=== PATIENT | female | born 1955 | race Caucasian/White ===

== ENCOUNTER 2018-01-21 16:55 | Observation (INO) | payer OTHER ==
[2018-01-21] MEDS ORDERED: Acetaminophen 500 MG TAB ONE (20:33)
[2018-01-21 21:14] VITALS: BMI 33.9
[2018-01-21] MEDS ORDERED: ALPRAZolam 1 MG TAB PO SCH (22:45)
[2018-01-22] MEDS ORDERED: Acetaminophen 325 MG TAB PO PRN (00:23)
[2018-01-22] MEDS ORDERED: Senokot 8.6 MG TAB PO PRN (00:23)
[2018-01-22] MEDS ORDERED: Fluticasone Propionate Nasal Spray 16 gm Bottle NASAL PRN (00:27)
[2018-01-22] MEDS ORDERED: ALPRAZolam 0.5 MG TAB PO PRN (00:27)
[2018-01-22] MEDS ORDERED: tiZANidine HCl 4 MG TAB PO PRN (00:27)
[2018-01-22] MEDS ORDERED: Dextrose 5% in Water 1,000 ML IV PRN (00:28)
[2018-01-22] MEDS ORDERED: Dextrose 50% Abboject 50 ML SYRINGE SLOW IVP PRN (00:28)
[2018-01-22] MEDS: Sodium Chloride 0.45% 1,000 ML IV SCH ×2 (01:38→13:26)
[2018-01-22] MEDS: Piperacillin/Tazobactam 3.375 GM in Sodium Chloride 0.9% 100 ML IVPB SCH ×4 (01:43→20:55)
[2018-01-22] MEDS: HumaLOG 300 UNITS/3 ML VIAL SC PRN (04:50)
[2018-01-22] MEDS: Levothyroxine Sodium 50 MCG TAB PO SCH (04:52)
[2018-01-22 05:57] LABS: #Eosinphils 0.2 thou/uL (0.0-0.7); #Lymphocytes 1.7 thou/uL (1.20-3.40); #Monocytes 0.3 thou/uL (0.11-0.59); #Neutrophils 2.5 thou/uL (1.40-6.50); %Basophils 0.6 % (0.0-1.0); %Lymphocytes 36.6 % (21.0-51.0); %Monocytes 5.5 % (0.0-10.0); %Neutrophils 52.4 % (42.0-75.0); Hemoglobin 10.3 g/dL (12.0-16.0); Mean Corpuscular HGB CONC 34.9 g/dL (32.0-36.0); Mean Corpuscular Hemoglobin 29.3 pg (27.0-31.0); Mean Corpuscular Volume 83.9 fL (78.0-98.0); Mean Platelet Volume 8.3 fL (7.4-10.4); Platelet Count 191 thou/uL (130-400); RBC Distribution Width 12.6 % (11.5-14.5); Red Blood Cell (RBC) Count 3.52 mill/uL (4.20-5.40); White Blood Cell (WBC) Count 4.7 thou/uL (4.8-10.8)
[2018-01-22 06:05] LABS: Anion Gap 11 mmol/L (10-20); BUN (Urea Nitrogen) 26 mg/dL (9.8-20.1); Calc. Creatinine Clearance 62 mL/min (70-130); Calcium 8.6 mg/dL (7.8-10.44); Carbon Dioxide 25 mmol/L (22-29); Chloride 102 mmol/L (98-107); Estimated GFR-MDRD 37; Glucose 198 mg/dL (70-105); Potassium 3.8 mmol/L (3.5-5.1); Sodium 134 mmol/L (136-145)
--- NOTE | 2018-01-22 06:47 | HP ---
CHIEF COMPLAINT: Urosepsis. HISTORY OF PRESENT ILLNESS: This patient is a 62-year-old female who reports that she has actually b een having syncopal episodes for weeks now. She states she simply awakens from them and goes on abou t life. Today, the patient was dropped off at a clinic in [place] for an appointment. While th ere, the patient had a syncopal episode, apparently hit her head and complained of some neck and low back pain. EMS was called and they evaluated the patient, took her to the Emergency Department in [facility] where she had a negative CT C-spine, abdomen, pelvis and brain. However, at that time, th e patient was noted to have a creatinine of 2.05 with evidence of pyuria. She was felt to have sympt omatic urinary tract infection with urosepsis. She was given Zosyn at that time and subsequently tra nsferred to this facility. The patient has recently been on Cipro and Keflex for urinary tract infec tions. The patient does monitor her blood sugars. She says they do drop at times down into the 40s. She has no idea if these may be related to her syncopal episodes. PAST MEDICAL HISTORY: Notable for diabetes mellitus type 2, hyperlipidemia, COPD, although the patie nt states she has never smoked, hypertension, hypothyroidism, history of myocardial infarction. The patient reports she has a history of broken bones in her right foot and history of anxiety and depres paulina. PAST SURGICAL HISTORY: Hysterectomy, right leg surgery, cardiac stents. FAMILY HISTORY: Patient reports her mother had Pick's disease and dementia. SOCIAL HISTORY: No alcohol, drugs or smoking history. ALLERGIES: DEMEROL, LATEX and MORPHINE. MEDICATIONS: Atorvastatin 40 mg p.o. daily, tizanidine 4 mg every day p.r.n., Meloxicam 7.5 mg ever y day, Cipro 250 q.12h, Tylenol #3 q.8 hours, metformin 1000 mg b.i.d., escitalopram 20 mg every day, Lyrica 100 mg b.i.d., levothyroxine 50 mcg every day, lisinopril/HCTZ 20/25 one p.o. daily, fluticas one nasal spray. REVIEW OF SYSTEMS: A 10 system review was negative except for those things mentioned in the history of present illness. The patient currently reporting that she is not having significant back pain, al though it was reported earlier. PHYSICAL EXAMINATION: VITAL SIGNS: Temperature 97.7, pulse 58, respirations 16, blood pressure is 139/62 up to 160/60. GENERAL APPEARANCE: Age appropriate female. She is in no distress. She is awake, alert, oriented, pleasant, cooperative. HEENT: PERRL. No OP lesions. NECK: Supple and symmetric without lymphadenopathy, JVD or bruits. CARDIOVASCULAR: Regular rate and rhythm without murmurs. LUNGS: Clear bilaterally. ABDOMEN: Soft, nontender, nondistended, positive bowel sounds. EXTREMITIES: Warm and dry without edema. NEUROLOGIC: The patient appears intact with no focal deficits. LABORATORY DATA: White blood cell count 6.7, hemoglobin 10.5, platelets 204. Sodium 133, potassium 4.8, chloride 96, CO2 of 20, BUN 32, creatinine is 2.05, glucose 329. Lactic acid initially is 2.4, repeat 1.6, albumin 3.6. Urinalysis shows greater than 50 white blood cells, negative nitrites, smal l leukocyte esterase, 3+ bacteria. A urine drug screen positive for benzodiazepines. Brain CT negative. C-spine CT shows mild degenerative changes of the cervical spine without acute os seous abnormalities. CT scan of the chest, abdomen and pelvis negative. ASSESSMENT AND PLAN: 1. Urosepsis in a patient with elevated lactic acid level, syncopal episodes and evidence of ongoing urinary tract infection. The patient did receive a dose of Zosyn at the [facility] and we will continue that for now. Will follow up on cultures from there. 2. Syncopal episode, presumably secondary to ongoing infection; however, it has been happening for a good while. We will check echocardiogram, carotid Dopplers, and maintain telemetry monitoring. 3. Fall injury related to the syncope. We will ask physical therapy to evaluate the patient further . 4. History of hypertension. We will continue with the patient's usual home medical regimen. 5. Hyperlipidemia. Continue with her usual home regimen. 6. Diabetes mellitus. We will continue with her usual medications and assuming that her creatinine will be stable and hopefully slightly improve with the hydration and the metformin will continue to b e safe. We will keep her on a diabetic diet and check glucoses and give sliding scale insulin. 7. Renal: The patient has apparent acute renal injury. Her creatinine is typically averaging aroun d 1.4, she is at 2.05 today. We will continue with IV fluids.
[2018-01-22] MEDS: Lisinopril/Hydrochlorothiazide 20/25 mg Tablet PO SCH (08:20)
[2018-01-22] MEDS: Pregabalin 50 MG CAP PO SCH ×2 (08:20→20:56)
[2018-01-22] MEDS: metFORMIN 500 MG TAB PO SCH ×2 (08:21→17:02)
[2018-01-22] MEDS: Meloxicam 7.5 MG TAB PO SCH (08:21)
[2018-01-22] MEDS: Escitalopram Oxalate 20 mg Tablet PO SCH (08:21)
--- NOTE | 2018-01-22 09:32 | ULT ---
CAROTID ULTRASOUND WITH STERLING SCALE AND DOPPLER DUPLEX COLOR FLOW IMAGING SPECTRAL ANALYSIS PERFORMED: CLINICAL INDICATION: Syncope. FINDINGS: There is mild atherosclerotic calcification of the carotid arteries. PEAK SYSTOLIC VELOCITY (CM/S): Right CCA 91 Left CCA 79 Right ICA 102 Left ICA 240 There is antegrade flow within the visualized bilateral vertebral arteries. IMPRESSION: 1. No hemodynamically significant stenosis of the right internal carotid artery. 2. Moderate, 50-69% stenosis of the left internal carotid artery. POS: MIHAELA
[2018-01-22] MEDS: Acetaminophen/Codeine 30-300mg Tablet PO PRN (09:56)
[2018-01-22] MEDS ORDERED: Ketorolac Tromethamine 30 MG/ML VIAL IVP SCH (13:15)
[2018-01-22] MEDS ORDERED: Ketorolac Tromethamine 30 MG/ML VIAL IVP PRN (13:16)
--- NOTE | 2018-01-22 18:58 | PDOC.PN ---
- Subjective Encounter Start Date: 01/22/18 Encounter Start Time: 18:30 Subjective: f/u for syncope, falls and UTI. Currently receiving IVF's and Zosyn. Feels -: better overall. No fever or chills. - Objective Resuscitation Status: Resuscitation Status FULL:Full Resuscitation MAR Reviewed: Yes Vital Signs & Weight: Vital Signs (12 hours) Temp Pulse Resp BP Pulse Ox 01/22/18 15:19 98.3 F 85 18 177/79 H 96 01/22/18 12:05 97.8 F 91 18 172/89 H 97 01/22/18 08:15 98.3 F 71 20 01/22/18 07:45 98.3 F 71 20 158/82 H 98 Weight Weight 210 lb 1.6 oz I&O: 01/21/18 01/22/18 01/23/18 06:59 06:59 06:59 Intake Total 1197 1849 Output Total 1850 1600 Balance -653 249 Result Diagrams: 01/22/18 04:50 01/22/18 04:49 Additional Labs: Accuchecks 01/22/18 01/22/18 01/22/18 16:16 12:05 08:02 POC Glucose 194 H 196 H 159 H 01/22/18 01/21/18 04:40 21:02 POC Glucose 234 H 200 H Laboratory Tests 01/21/18 01/21/18 01/21/18 13:00 13:00 18:37 WBC 6.7 Creatinine 2.05 H Lactic Acid 1.6 Radiology Reviewed by me: Yes (Carotid sono - L carotid mod stenosis) EKG Reviewed by me: Yes (Tele - SR) Phys Exam - Physical Examination Constitutional: NAD HEENT: PERRLA, sclera anicteric, oral pharynx no lesions Neck: no nodes, no JVD, supple, full ROM Respiratory: no wheezing, no rales, no rhonchi, clear to auscultation bilateral Cardiovascular: RRR, no significant murmur, no rub, gallop Gastrointestinal: soft, non-tender, no distention, positive bowel sounds Musculoskeletal: no edema, pulses present Neurological: non-focal, normal sensation, moves all 4 limbs Psychiatric: normal affect, A&O x 3 Skin: no rash, normal turgor, cap refill <2 seconds Dx/Plan (1) PATRICA (acute kidney injury) Code(s): N17.9 - ACUTE KIDNEY FAILURE, UNSPECIFIED Status: Acute Comment: Improved, continue IVF's, avoid nephrotoxic meds and limit contrast exposure (2) Syncope Code(s): R55 - SYNCOPE AND COLLAPSE Status: Acute Comment: Likely multifactorial and mediated with hypovolemia, continue IVF's, await Echo results (3) UTI (urinary tract infection) Status: Acute Comment: Suspected, await Ucx, continue Zosyn another 24h then convert to po option (4) Diabetes mellitus, type II, insulin dependent Code(s): E11.9 - TYPE 2 DIABETES MELLITUS WITHOUT COMPLICATIONS; Z79.4 - INTERMEDIATE (CURRENT) USE OF INSULIN Status: Chronic Comment: ISS, Glucophage, ADA - Plan continue antibiotics, 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
[2018-01-22] MEDS ORDERED: Atorvastatin Calcium 40 MG TAB PO SCH (21:00)
[2018-01-23] MEDS: Sodium Chloride 0.45% 1,000 ML IV SCH ×2 (00:54→14:16)
[2018-01-23] MEDS: Piperacillin/Tazobactam 3.375 GM in Sodium Chloride 0.9% 100 ML IVPB SCH ×3 (01:37→14:16)
[2018-01-23] MEDS: HumaLOG 300 UNITS/3 ML VIAL SC PRN ×2 (04:15→08:30)
[2018-01-23] MEDS: Levothyroxine Sodium 50 MCG TAB PO SCH (04:15)
[2018-01-23 04:54] LABS: Anion Gap 11 mmol/L (10-20); BUN (Urea Nitrogen) 18 mg/dL (9.8-20.1); Calc. Creatinine Clearance 69 mL/min (70-130); Calcium 8.8 mg/dL (7.8-10.44); Carbon Dioxide 28 mmol/L (22-29); Chloride 102 mmol/L (98-107); Estimated GFR-MDRD 42; Glucose 295 mg/dL (70-105); Potassium 3.8 mmol/L (3.5-5.1); Sodium 137 mmol/L (136-145)
[2018-01-23] MEDS: Meloxicam 7.5 MG TAB PO SCH (07:43)
[2018-01-23] MEDS: Escitalopram Oxalate 20 mg Tablet PO SCH (07:44)
[2018-01-23] MEDS: Lisinopril/Hydrochlorothiazide 20/25 mg Tablet PO SCH (07:44)
[2018-01-23] MEDS: metFORMIN 500 MG TAB PO SCH (07:44)
[2018-01-23] MEDS: Pregabalin 50 MG CAP PO SCH (07:52)
[2018-01-23 08:02] VITALS: TEMP 97
[2018-01-23] MEDS: Acetaminophen/Codeine 30-300mg Tablet PO PRN (08:35)
[2018-01-23 11:51] VITALS: BP 180/134
--- NOTE | 2018-01-23 16:30 | DIS ---
DATE OF ADMISSION: 01/21/2018 DATE OF DISCHARGE: 01/23/2018 DISCHARGE DIAGNOSES: 1. Acute kidney injury, multifactorial, improved. 2. Urinary tract infection with Escherichia coli. 3. Syncope secondary to volume depletion. 4. Diabetes mellitus type 2, insulin requiring. CONSULTATIONS: None. PERTINENT LAB AND X-RAY FINDINGS: Creatinine ranged between 1.29-2.05. Estimated GFR ranging betwee n 25-42. Urine culture dated 01/21/2018 showed greater than 100,000 colonies of E. coli. Blood cult ures x2 from 01/21/2018 showed no growth to date. Carotid Doppler study dated 01/22/2018 showed mode rate stenosis of the left internal carotid artery. CT of the brain without contrast dated 01/21/2018 showed no acute intracranial process. CT of the cervical spine dated 01/21/2018 showed mild degener ative changes without acute process. CT of the chest, abdomen, and pelvis dated 01/21/2018 showed no acute process. HOSPITAL COURSE: The patient was observed on the telemetry unit after initially presenting status po st syncopal episode and fall. The patient underwent extensive evaluation with multiple imaging studi es all negative. The patient was noted with dehydration and associated acute kidney injury, placed o n IV fluids throughout the hospital course. The patient was also noted with a urinary tract infectio n with E. coli species, treated with Zosyn after sensitivities showed appropriate coverage with Zosyn . The patient transitioned to Macrobid and will complete this therapy on an outpatient basis. Overa ll, the patient did remain clinically stable during the hospital course. Telemetry monitoring showed sinus bradycardia with heart rates in the 50s to low 60s. I have examined the patient at the time o f discharge and discussed followup instructions, at which point the patient verbalizes understanding and agreement. The patient overall clinically stable and ready for discharge on 01/23/2018. DISCHARGE MEDICATIONS: 1. Macrobid 100 mg 1 tab p.o. b.i.d. x5 days. 2. Tylenol #3 300 mg/30 mg 1 tab p.o. q.8 hours p.r.n. 3. Xanax 1 mg p.o. b.i.d. p.r.n. 4. Lipitor 40 mg p.o. daily. 5. Lexapro 20 mg p.o. daily. 6. Flonase 2 sprays in each naris daily. 7. Glargine insulin 60 units subcutaneously at bedtime. 8. Synthroid 50 mcg p.o. daily. 9. Lisinopril/hydrochlorothiazide 20/25 mg 1 tab p.o. daily. 10. Mobic 7.5 mg p.o. daily. 11. Metformin 1000 mg p.o. b.i.d. 12. Lyrica 100 mg p.o. b.i.d. 13. Tizanidine 4 mg p.o. daily. FOLLOWUP: The patient will follow up with [facility]. CONDITION ON DISCHARGE: Stable. ACTIVITY: ad mounika. DIET: ADA and heart healthy. CODE STATUS: FULL. DISPOSITION: Home on 01/23/2018.
== END 2018-01-23 15:06 | disposition home or self-care (01) ==
LOC: ERS 16:55 → 2SW 20:30 → UNDODISOB 01-23 12:05
PROVIDERS: ADMIT Internal Medicine; ATTEND Internal Medicine
DX: N17.9 Acute kidney failure, unspecified (principal); N39.0 Urinary tract infection, site not specified; B96.20 Unspecified Escherichia coli [E. coli] as the cause of diseases classified elsewhere; R55 Syncope and collapse; E11.9 Type 2 diabetes mellitus without complications; E78.5 Hyperlipidemia, unspecified; I25.2 Old myocardial infarction; I10 Essential (primary) hypertension; E03.9 Hypothyroidism, unspecified; Z79.4 Long term (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 of insulin; Z79.899 Other long term (current) drug therapy; Z88.5 Allergy status to narcotic agent; Z91.040 Latex allergy status
CPT/HCPCS: 36415; 36416; 80048; 83605; 85025; 93306; 93880; 96360; 96361; 96365; 96366; 96375; A4216; G0378; G8978-GP-CJ; G8979-GP-CJ; G8980-GP-CJ; J1885; J2543; J7050

== ENCOUNTER 2019-01-19 17:09 | Inpatient (IN) | payer OTHER ==
[~2019-01-19 17:09] MED LIST: ISOVUE-370 76%-LOCM 1 ML ONE
--- NOTE | 2019-01-19 18:25 | CT ---
CTA THORAX UTILIZING IV CONTRAST AND PE PROTOCOL AND 3D REFORMATTED IMAGING: INDICATIONS: History of chest pain. FINDINGS: No central or segmental pulmonary embolus is demonstrated. There are moderate bilateral pleural effusions. There is perihilar air space opacity, most prominent in the right upper lobe, suspicious for airspace edema. There is moderate cardiomegaly. The visualized upper abdomen demonstrates a small hiatal hernia but is otherwise unremarkable appeari ng. No acute osseous abnormality is evident. There is scattered degenerative and osteoarthritic gale nge. There is a bony hemangioma within T8. IMPRESSION: 1. Findings suggesting mild to moderate congestive heart failure. 2. No central or segmental pulmonary embolus. 3. Hazy air space opacities bilaterally, most likely related to edema; however, a component of pneum onia specifically within the air space opacity within the right upper lobe, cannot be entirely exclud ed. Recommend correlation with clinical examination for any infectious signs or symptomatology. POS: EMMANUEL
[2019-01-19] MEDS ORDERED: Guaifenesin DM 100-10/5 ML UDCUP PO PRN (19:57)
[2019-01-19] MEDS ORDERED: Dextrose 50% Abboject 50 ML SYRINGE SLOW IVP PRN (19:57)
[2019-01-19] MEDS ORDERED: Acetaminophen/Codeine 30-300mg Tablet PO PRN (19:57)
[2019-01-19] MEDS ORDERED: Fluticasone Propionate Nasal Spray 16 gm Bottle NASAL PRN (19:57)
[2019-01-19] MEDS ORDERED: HumaLOG 300 UNITS/3 ML VIAL SC PRN ×2 (19:57)
[2019-01-19] MEDS ORDERED: Bisacodyl 10 MG SUPP PR PRN (19:57)
[2019-01-19] MEDS ORDERED: Dextrose 5% in Water 1,000 ML IV PRN (19:57)
--- NOTE | 2019-01-19 20:47 | HP ---
REASON FOR ADMISSION: Acute CHF exacerbation, asthma exacerbation, and acute kidney injury. HISTORY OF PRESENT ILLNESS: The patient gives history of shortness of breath from . This is getting worse despite trying her inhalers and taking extra heart pills at home. She also developed a bit of chest discomfort due to difficulty breathing all across her chest. No complaints of palpitation or PND. This got worse to the point that the patient could not tolerate it anymore and went to [facility] from where she was transferred here. She has no complaints of altered phlegm. Has essentially dry cough. No complaints of fever at home. She normally ambulates very minimally in the house. She states she has had 2 stents placed more than 16 years back in [facility]. She does not recall the last stress test and likely when she had the angiogram with stenting 16 years back. No complaints of urinary frequency or urgency. She is not able to complete a sentence without taking a breath and is currently using abdominal muscles as well to breathe. PAST MEDICAL AND SURGICAL HISTORY: Diabetes mellitus type 2, chronic back pain, severe peripheral neuropathy, hypertension, coronary artery disease with prior stents, hysterectomy, right ankle surgery, tubal ligation, dyslipidemia, history of asthma, obesity, and hypothyroidism. CURRENT MEDICATIONS: The patient is on: 1. Glipizide 10 mg twice daily. 2. Lantus 60 units subcu at bedtime. 3. Takes Humalog 30 units before meals. 4. Hydralazine 50 mg three times daily. 5. Atorvastatin 40 mg p.o. daily. 6. Tizanidine 4 mg as needed for pain. 7. Escitalopram 20 mg daily. 8. Lyrica 100 mg twice daily. 9. Levothyroxine 50 mcg daily. 10. Lisinopril with hydrochlorothiazide 20/25 mg p.o. daily. 11. Fluticasone nasal spray p.r.n. ALLERGIES: DEMEROL, LATEX, MEPERIDINE, AND MORPHINE. PERSONAL HISTORY: Does not abuse alcohol or drugs. No history of smoking. She ambulates by herself, but very minimally in the house. Prior to , she was able to ambulate outside her house a bit. FAMILY HISTORY: Mother at the age of 59 years. She of Pick's dementia. Father in his 70s. He has had history of asbestos exposure with mesothelioma/lung cancer. CODE STATUS: Full. Power of collections attorney is her , Mr. Aubrey Almodovar. REVIEW OF SYSTEMS: CONSTITUTIONAL: Negative for weight loss or gain, ability to conduct usual activities. SKIN: Negative for rash, itching. EYES: Negative for double vision, pain. ENT/MOUTH: Negative for nose bleeding, neck stiffness, pain, tenderness. CARDIOVASCULAR: Negative for palpitations, dyspnea on exertion, orthopnea. RESPIRATORY: Negative for shortness of breath, wheezing, cough, hemoptysis, fever or night sweats. GASTROINTESTINAL: Negative for poor appetite, abdominal pain, heartburn, nausea, vomiting, constipation, or diarrhea. GENITOURINARY: Negative for urgency, frequency, dysuria, nocturia. MUSCULOSKELETAL: Negative for pain, swelling. NEUROLOGIC/PSYCHIATRIC: Negative for anxiety, depression. ALLERGY/IMMUNOLOGIC: Negative for skin rash, bleeding tendency. PHYSICAL EXAMINATION: GENERAL: The patient is a 63-year-old female, who is currently in mild respiratory distress. VITAL SIGNS: Blood pressure 190/100, pulse 90 per minute, respiratory rate 22 per minute, temperature 98.5 degrees Fahrenheit, and saturating 97% on 2 L nasal cannula. NECK: Supple. No elevated JVD. HEENT: Eyes; extraocular muscles intact. Pupils reacting to light. Oral cavity, mucous membranes are dry. No exudates or congestion. CARDIOVASCULAR: S1 and S2 heard. Regular rhythm. No murmur. RESPIRATORY SYSTEM: Air entry 1+ bilateral. Scattered rales plus bilateral. Rhonchi plus and occasional wheezes plus bilateral. ABDOMEN: Soft. Bowel sounds heard. No tenderness, rigidity, or guarding. EXTREMITIES: No peripheral edema or calf tenderness. VASCULAR SYSTEM: Peripheral pulses 1+ bilateral. No ischemic ulcerations or gangrene. CENTRAL NERVOUS SYSTEM: No gross focal deficits noted. The patient is alert and oriented well. PSYCHIATRIC SYSTEM: The patient's mood is euthymic. No hallucinations or delusions. LABORATORY DATA: EKG done shows normal sinus rhythm at 99 beats per minute. There is LBBB seen, likely chronic. QRS duration is 136 milliseconds, corrected QT duration is 528 milliseconds. White count of 7, hemoglobin and hematocrit of 10 and 31, platelet count is 217, MCV is 84 with 78% neutrophils. PT/INR, PTT within normal limits. D-dimer is 0.8. Electrolytes stable. BUN 33, creatinine 1.6, serum bicarb 24, glucose is 357. Troponin I is indeterminate, peaking up to 0.47. CK-MB 4.0. BNP is 569. Albumin is 4.1. CT angio of chest done shows no evidence of PE. There is bilateral pleural effusion. Pulmonary vascular congestion seen. CLINICAL IMPRESSION AND PLAN: The patient will be admitted to telemetry for acute congestive heart failure exacerbation, mild asthma exacerbation. She will be on Lasix 40 mg IV q.12 hourly, and we will continue aspirin, Lipitor, and low-dose of Coreg. The patient has acute kidney injury. She will be on glipizide 5 mg twice daily along with Lantus 60 units q.p.m. We will also continue her Lyrica and tizanidine for severe peripheral neuropathy with diabetes. We will also continue hydralazine 25 mg three times daily and this will be slowly escalated to desired blood pressure levels. Echo with 2D Doppler for LV function will be obtained. Cardiology consultation with Dr. Hawley will be obtained. The patient says she has seen Chandan in the past, but again she is not so sure. Code status was discussed with the patient, and she is a full code. For her asthma exacerbation, the patient will be on DuoNeb q.6 hourly. We will hold off on steroids due to serum sugars of around 350 at present. Please note, her metformin will be held due to acute kidney injury. Job ID: [id number]
[2019-01-19 20:50] LABS: Bacteria/HPF 4+ HPF (None Seen); Bilirubin Negative (Negative); Blood, Urine Negative (Negative); Clarity Clear (Clear); Glucose, Urine (Dipstick) 300 mg/dL (Negative); Leukocyte 75 Leu/uL (Negative); Nitrite 2+ (Negative); Protein, Urine (Dipstick) 30 mg/dL (Neg-Trace); RBC/HPF 0-3 HPF (0-3); Squamous Epithelial 0-3 HPF (0-3); Urobilinogen Normal mg/dL (Less than 2)
[2019-01-19] MEDS ORDERED: tiZANidine HCl 4 MG TAB PO PRN (21:00)
[2019-01-19] MEDS ORDERED: Famotidine 20 MG TAB PO SCH (21:00)
[2019-01-19] MEDS ORDERED: Non-Formulary Item 1 EACH (Insulin Glargine,Hum.Rec.Anlog [Lantus Solostar] 60 UNIT) SQ SCH (21:00)
[2019-01-19] MEDS: Pregabalin 50 MG CAP PO SCH (21:32)
[2019-01-19] MEDS: hydrALAZINE 25 MG TAB PO SCH (21:33)
[2019-01-19] MEDS: Carvedilol 3.125 MG TAB PO SCH (21:33)
[2019-01-19] MEDS: Senokot S 8.6-50 MG TAB PO SCH (21:33)
[2019-01-19] MEDS: Insulin Glargine 60 UNITS in Pre-Filled Syringe 1 EACH SC SCH (22:04)
[2019-01-19 22:57] LABS: Troponin I 0.532 ng/mL (< 0.028)
[2019-01-20] MEDS ORDERED: Labetalol HCl 100 MG/20 ML VIAL SLOW IVP PRN (00:24)
[2019-01-20 02:06] LABS: Critical Call Chem Troponin I RESULT DECREASING; Troponin I 0.502 ng/mL (< 0.028)
[2019-01-20 05:47] LABS: #Lymphocytes 0.7 thou/uL (1.20-3.40); #Monocytes 0.2 thou/uL (0.11-0.59); #Neutrophils 4.7 thou/uL (1.40-6.50); %Basophils 0.2 % (0.0-1.0); %Eosinophils 0.1 % (0.0-10.0); %Lymphocytes 12.3 % (21.0-51.0); %Monocytes 3.4 % (0.0-10.0); %Neutrophils 83.9 % (42.0-75.0); Anion Gap 14 mmol/L (10-20); BUN (Urea Nitrogen) 36 mg/dL (9.8-20.1); Calc. Creatinine Clearance 54 mL/min (70-130); Calcium 9.8 mg/dL (7.8-10.44); Carbon Dioxide 24 mmol/L (23-31); Chloride 104 mmol/L (98-107); Estimated GFR-MDRD 31; Glucose 466 mg/dL (80-115); Hemoglobin 9.8 g/dL (12.0-16.0); Mean Corpuscular HGB CONC 31.3 g/dL (32.0-36.0); Mean Corpuscular Hemoglobin 26.9 pg (27.0-31.0); Mean Corpuscular Volume 86.1 fL (78.0-98.0); Mean Platelet Volume 9.5 fL (7.4-10.4); Platelet Count 227 thou/uL (130-400); Potassium 4.5 mmol/L (3.5-5.1); RBC Distribution Width 12.8 % (11.5-14.5); Red Blood Cell (RBC) Count 3.65 mill/uL (4.20-5.40); Sodium 137 mmol/L (136-145); White Blood Cell (WBC) Count 5.6 thou/uL (4.8-10.8)
[2019-01-20] MEDS: Furosemide 40 MG/4 ML VIAL SLOW IVP SCH ×2 (06:04→16:06)
[2019-01-20] MEDS: Levothyroxine Sodium 50 MCG TAB PO SCH (06:05)
[2019-01-20] MEDS ORDERED: Sodium Chloride 0.9% 1,000 ML IV SCH ×2 (09:30→15:00)
[2019-01-20] MEDS ORDERED: Communication Order-Pharmacy FS SCH (09:30)
[2019-01-20] MEDS ORDERED: Iopamidol 370 76% 100 ML VIAL ONE (09:42)
[2019-01-20] MEDS: ALPRAZolam 1 MG TAB PO SCH ×4 (10:42→20:59)
[2019-01-20] MEDS: Pregabalin 50 MG CAP PO SCH ×2 (10:42→20:55)
[2019-01-20] MEDS: Escitalopram Oxalate 20 mg Tablet PO SCH (10:43)
[2019-01-20] MEDS: Aspirin Chewable 81 MG TAB PO SCH (10:43)
[2019-01-20] MEDS: hydrALAZINE 25 MG TAB PO SCH ×3 (10:43→20:57)
[2019-01-20] MEDS: Senokot S 8.6-50 MG TAB PO SCH ×2 (10:44→20:57)
[2019-01-20] MEDS: Atorvastatin Calcium 40 MG TAB PO SCH (10:44)
[2019-01-20] MEDS: glipiZIDE 5 MG TAB PO SCH ×2 (10:44→20:53)
[2019-01-20] MEDS: Carvedilol 3.125 MG TAB PO SCH ×2 (10:44→20:57)
[2019-01-20] MEDS: Enoxaparin Sodium 40 MG/0.4 ML SYRINGE SC SCH (10:50)
[2019-01-20] MEDS ORDERED: Lidocaine 1% (PF) 30 ML VIAL ONE (12:15)
--- NOTE | 2019-01-20 12:52 | PDOC.PN ---
- Subjective Encounter Start Date: 01/20/19 Encounter Start Time: 10:00 Subjective: sob is better, no chest pain -: just had echo done -: is npo for possible cath today - Objective Resuscitation Status - Order Detail: 01/19/19 19:51 Resuscitation Status Routine Resuscitation Status: FULL: Full Resuscitation MAR Reviewed: Yes Vital Signs & Weight: Vital Signs (12 hours) Temp Pulse Pulse Pulse Pulse Resp BP 01/20/19 11:10 91 92 89 193/80 H 01/20/19 08:00 97.9 F 95 18 01/20/19 07:03 96 18 01/20/19 04:08 98.8 F 92 16 BP BP BP Pulse Ox 01/20/19 11:10 150/68 H 122/56 L 01/20/19 08:00 145/75 H 95 01/20/19 07:03 94 L 01/20/19 04:08 150/70 H Weight Weight 211 lb 4.8 oz I&O: 01/19/19 01/20/19 01/21/19 06:59 06:59 06:59 Intake Total 480 Output Total 700 Balance -220 Result Diagrams: 01/20/19 04:52 01/20/19 04:52 Additional Labs: Accuchecks 01/20/19 01/20/19 01/19/19 10:51 05:42 21:45 POC Glucose 247 H 434 H 460 H Phys Exam - Physical Examination HEENT: PERRLA, moist MMs Neck: no JVD, supple Respiratory: no wheezing, no rales Cardiovascular: RRR, no significant murmur Gastrointestinal: soft, non-tender, positive bowel sounds Musculoskeletal: no edema, pulses present Neurological: non-focal, moves all 4 limbs Psychiatric: normal affect, A&O x 3 Dx/Plan (1) Acute exacerbation of CHF (congestive heart failure) Code(s): I50.9 - HEART FAILURE, UNSPECIFIED Status: Acute Qualifiers: Heart failure type: systolic Qualified Code(s): I50.23 - Acute on chronic systolic (congestive) heart failure (2) CAD (coronary artery disease) Code(s): I25.10 - ATHSCL HEART DISEASE OF [place] CORONARY ARTERY W/O ANG PCTRS Status: Chronic Qualifiers: Coronary Disease-Associated Artery/Lesion type: [place] artery [place] vs. transplanted heart: [place] heart Associated angina: without angina Qualified Code(s): I25.10 - Atherosclerotic heart disease of [place] coronary artery without angina pectoris (3) DM type 2 (diabetes mellitus, type 2) Status: Chronic Qualifiers: Diabetes mellitus penitentiary insulin use: with joint terminal attack controller use (4) HTN (hypertension) Code(s): I10 - ESSENTIAL (PRIMARY) HYPERTENSION Status: Chronic Qualifiers: Hypertension type: essential hypertension Qualified Code(s): I10 - Essential (primary) hypertension (5) Dyslipidemia Code(s): E78.5 - HYPERLIPIDEMIA, UNSPECIFIED Status: Chronic (6) Cardiac asthma Code(s): I50.1 - LEFT VENTRICULAR FAILURE, UNSPECIFIED Status: Suspected (7) Obesity (BMI 30.0-34.9) Code(s): E66.9 - OBESITY, UNSPECIFIED Status: Chronic - Plan is on lasix bid, has diuresed well -: for cath today, is npo -: continue coreg, asp, lipitor, lantus, glipizide -: hydralazine, synthroid, lyrica -: to mobilize as tolerated * . Review of Systems - Medications/Allergies Allergies/Adverse Reactions: Allergies Allergy/AdvReac Type Severity Reaction Status Date / Time latex Allergy Verified 01/19/19 21:32 meperidine [From Demerol] Allergy Verified 01/19/19 21:32 morphine Allergy Verified 01/19/19 21:32 Medications: Current Medications Acetaminophen (Tylenol) 650 mg PO Q4H PRN PRN Reason: Headache/Fever/Mild Pain (1-3) Albuterol/Ipratropium (Duoneb) 3 ml NEB [id number] Last Admin: 01/20/19 07:03 Dose: 3 ml Alprazolam (Xanax) 1 mg PO QID [facility] Last Admin: 01/20/19 10:42 Dose: 1 mg Aspirin (Aspirin Chewable) 81 mg PO DAILY [facility] Last Admin: 01/20/19 10:43 Dose: 81 mg Atorvastatin Calcium (Lipitor) 40 mg PO DAILY [facility] Last Admin: 01/20/19 10:44 Dose: 40 mg Bisacodyl (Dulcolax) 10 mg GA DAILYPRN PRN PRN Reason: Constipation Carvedilol (Coreg) 3.125 mg PO BID [facility] Last Admin: 01/20/19 10:44 Dose: 3.125 mg Dextrose/Water (Dextrose 50%) 25 gm SLOW IVP PRN PRN PRN Reason: Hypoglycemia Enoxaparin Sodium (Lovenox) 40 mg SC 0900 [facility] Last Admin: 01/20/19 10:50 Dose: Not Given Escitalopram Oxalate (Lexapro) 20 mg PO DAILY [facility] Last Admin: 01/20/19 10:43 Dose: 20 mg Famotidine (Pepcid) 20 mg PO QPM [facility] Fluticasone Propionate (Flonase Nasal [place]) 0 gm NASAL DAILYPRN PRN PRN Reason: nasal stuffiness Furosemide (Lasix) 40 mg SLOW IVP 0600,1400 [facility] Last Admin: 01/20/19 06:04 Dose: 40 mg Glipizide (Glucotrol) 5 mg PO BID-AC [facility] Last Admin: 01/20/19 10:44 Dose: 5 mg Glucagon (Glucagon) 1 mg IM PRN PRN PRN Reason: Hypoglycemia Guaifenesin/Dextromethorphan (Robitussin Dm) 15 ml PO Q4H PRN PRN Reason: Cough Hydralazine HCl (Apresoline) 25 mg PO TID [facility] Last Admin: 01/20/19 10:43 Dose: 25 mg Dextrose/Water (D5w) 1,000 mls @ 0 mls/hr IV .Q0M PRN PRN Reason: Hypoglycemia Insulin Glargine 60 units/ (Miscellaneous Medication) 0.6 mls @ 0 mls/hr SC HS [facility] Last Admin: 01/19/19 22:04 Dose: 0.6 mls Sodium Chloride (Normal Saline 0.9%) 1,000 mls @ 100 mls/hr IV .Q10H [facility] Last Admin: 01/20/19 10:50 Dose: 1,000 mls Insulin Human Lispro (Humalog) 0 units SC .BEDTIME SLIDING SC PRN PRN Reason: Bedtime Correctional Scale Last Admin: 01/20/19 06:05 Dose: 5 unit Insulin Human Lispro (Humalog) 0 units SC .AGGRESSIVE SLIDING PRN PRN Reason: Aggressive Correctional Scale Labetalol HCl (Normodyne) 10 mg SLOW IVP Q4H PRN PRN Reason: SBP Greater Than 180 Levothyroxine Sodium (Synthroid) 50 mcg PO 0600 [facility] Last Admin: 01/20/19 06:05 Dose: 50 mcg Pregabalin (Lyrica) 100 mg PO BID [facility] Last Admin: 01/20/19 10:42 Dose: 100 mg Senna/Docusate Sodium (Senokot S) 2 tab PO BID [facility] Last Admin: 01/20/19 10:44 Dose: 2 tab Sodium Chloride (Flush - Normal Saline) 10 ml IVF PRN PRN PRN Reason: Saline Flush Tizanidine HCl (Zanaflex) 4 mg PO DAILYPRN PRN PRN Reason: Muscle Spasm
[2019-01-20] MEDS ORDERED: Fentanyl 100 MCG/2 ML VIAL ONE (14:01)
[2019-01-20] MEDS ORDERED: Midazolam HCl 2 mg/2 ml Vial ONE (14:01)
[2019-01-20] MEDS ORDERED: Heparin 10,000 UNITS/1 ML VIAL ONE (14:14)
[2019-01-20] MEDS ORDERED: Nitroglycerin 0.4 MG TAB (25 Tab Bottle) SL PRN (14:49)
[2019-01-20] MEDS ORDERED: TICAGRELOR 90 MG TABLET ONE (14:50)
--- NOTE | 2019-01-20 15:37 | CON ---
DATE OF CONSULTATION: 01/20/2019 REASON FOR CONSULTATION: Non-STEMI. HISTORY OF PRESENT ILLNESS: Ms. Mendez is a very pleasant 63-year-old white female, who comes to the hospital for shortness of breath and chest pain. She started being short of breath last week, has tried to use her inhalers. She had chest tightness yesterday because she has had a history of coronary artery disease in the past. She decided to come in for evaluation. She was admitted and troponins were positive, so Cardiology has been consulted for this. Ms. Mendez is currently chest pain free. PAST MEDICAL HISTORY: 1. Type 2 diabetes. 2. Chronic back pain. 3. Peripheral neuropathy. 4. Hypertension. 5. Coronary artery disease, supposedly stents about 17 years ago. 6. Hyperlipidemia. 7. Bronchial asthma. 8. Obesity. 9. Hypothyroidism. PAST SURGICAL HISTORY: 1. Hysterectomy. 2. Right ankle surgery. 3. Tubal ligation. OUTPATIENT MEDICATIONS: 1. Glipizide 10 mg b.i.d. 2. Lantus. 3. Humalog. 4. Hydralazine 50 mg t.i.d. 5. Atorvastatin 40 mg a day. 6. Tizanidine. 7. Escitalopram. 8. Lyrica. 9. Levothyroxine 50 mcg a day. 10. Lisinopril/hydrochlorothiazide 20/25 a day. 11. Fluticasone nasal spray. ALLERGIES: DEMEROL, LATEX, MEPERIDINE, AND MORPHINE. SOCIAL HISTORY: No alcohol, tobacco, or drugs. FAMILY HISTORY: Mother was demented. No early coronary artery disease. REVIEW OF SYSTEMS: A 12-point review of systems was done and was all negative unless stated in the history of present illness. PHYSICAL EXAMINATION: VITAL SIGNS: Temperature 97.9, pulse 95, respiratory rate 18, saturating 95% on room air, and blood pressure 122/56. GENERAL: Awake, alert, oriented x3. No distress. HEENT: Normocephalic, atraumatic. NECK: Supple. LUNGS: Clear. CARDIOVASCULAR: S1 and S2. No S3 or S4. There is a grade 2/6 systolic murmur at the right upper sternal border. ABDOMEN: Soft. EXTREMITIES: 1+ edema. SKIN: Warm and dry. LABORATORY DATA: Laboratory work was reviewed. CBC with a white count of 5.6, hemoglobin 9.8, hematocrit of 31, platelet count of 227. Coags were reviewed. Chemistries were reviewed. Troponin was 0.47, 0.53, 0.50. Creatinine 1.67, GFR of 31. UA; 2+ nitrites with 75 leukocyte esterase, 4+ urine bacteria. CT of the chest was reviewed. ASSESSMENT: 1. Acute on chronic systolic versus diastolic heart failure. 2. Pec-KK-ryduklelh myocardial infarction. 3. History of bronchial asthma. 4. Possible urinary tract infection. PLAN: 1. Symptoms concerning for an acute coronary syndrome. We will plan on doing a heart catheterization. I spoke with her at length of the risks and benefits of the procedure. Risks included, but not limited to stroke, ND, , bleeding, need for blood transfusion, limb loss, organ loss. She understands and verbalized understanding and agrees to proceed. We spoke about drug-eluting stents for bare metal stents. She is very good in taking her medications and she has no surgeries planned, no back injections or anything of that sort that would require blood thinner to stop within the next year, so she would prefer drug coated stents. Right groin access. 2. Further recommendations per results of coronary angiogram. Thank you for letting us to participate in the care of your patient. We will follow. Job ID: [id number]
[2019-01-20] MEDS: TICAGRELOR 90 MG TABLET PO SCH (20:55)
[2019-01-20] MEDS: Famotidine 20 MG TAB PO SCH (20:56)
[2019-01-20] MEDS: Insulin Glargine 60 UNITS in Pre-Filled Syringe 1 EACH SC SCH ×2 (20:57→23:31)
[2019-01-20] MEDS: Acetaminophen 325 MG TAB PO PRN (21:01)
[2019-01-21] MEDS: Acetaminophen 325 MG TAB PO PRN ×2 (05:32→17:30)
[2019-01-21] MEDS: Levothyroxine Sodium 50 MCG TAB PO SCH (05:32)
[2019-01-21 05:35] LABS: #Basophils 0.1 thou/uL (0.0-0.2); #Eosinphils 0.1 thou/uL (0.0-0.7); #Lymphocytes 1.7 thou/uL (1.20-3.40); #Monocytes 0.5 thou/uL (0.11-0.59); #Neutrophils 4.3 thou/uL (1.40-6.50); %Basophils 1.1 % (0.0-1.0); %Eosinophils 1.3 % (0.0-10.0); %Lymphocytes 25.9 % (21.0-51.0); %Monocytes 7.2 % (0.0-10.0); %Neutrophils 64.5 % (42.0-75.0); Hemoglobin 9.7 g/dL (12.0-16.0); Mean Corpuscular Hemoglobin 26.6 pg (27.0-31.0); Mean Corpuscular Volume 85.8 fL (78.0-98.0); Platelet Count 242 thou/uL (130-400); RBC Distribution Width 12.9 % (11.5-14.5); Red Blood Cell (RBC) Count 3.63 mill/uL (4.20-5.40); White Blood Cell (WBC) Count 6.7 thou/uL (4.8-10.8)
[2019-01-21 06:02] LABS: ALT (SGPT) 11 U/L (8-55); AST (SGOT) 11 U/L (5-34); Albumin 3.5 g/dL (3.4-4.8); Alkaline Phosphatase 101 U/L (40-150); Anion Gap 9 mmol/L (10-20); BUN (Urea Nitrogen) 41 mg/dL (9.8-20.1); Bilirubin, Total 0.3 mg/dL (0.2-1.2); Calc. Creatinine Clearance 52 mL/min (70-130); Calcium 9.8 mg/dL (7.8-10.44); Carbon Dioxide 32 mmol/L (23-31); Chloride 108 mmol/L (98-107); Estimated GFR-MDRD 31; Globulin 2.5 g/dL (2.4-3.5); Potassium 3.7 mmol/L (3.5-5.1); Sodium 145 mmol/L (136-145)
[2019-01-21 06:04] LABS: Glucose 48 mg/dL (80-115)
[2019-01-21] MEDS: Senokot S 8.6-50 MG TAB PO SCH ×2 (08:33→21:39)
[2019-01-21] MEDS: Pregabalin 50 MG CAP PO SCH (08:34)
[2019-01-21] MEDS: Atorvastatin Calcium 40 MG TAB PO SCH (08:34)
[2019-01-21] MEDS: Carvedilol 3.125 MG TAB PO SCH ×2 (08:34→21:38)
[2019-01-21] MEDS: TICAGRELOR 90 MG TABLET PO SCH ×2 (08:34→21:38)
[2019-01-21] MEDS: Enoxaparin Sodium 40 MG/0.4 ML SYRINGE SC SCH (08:35)
[2019-01-21] MEDS: Aspirin Chewable 81 MG TAB PO SCH (08:35)
[2019-01-21] MEDS: hydrALAZINE 25 MG TAB PO SCH ×3 (08:35→21:38)
[2019-01-21] MEDS: Escitalopram Oxalate 20 mg Tablet PO SCH (08:35)
[2019-01-21] MEDS: ALPRAZolam 1 MG TAB PO SCH (08:35)
[2019-01-21 10:06] LABS: Actual Bicarbonate (HCO3a) 26.4 mEq/L (22-28); Base Excess (BEa) 1.7 mEq/L (-2.0 to +3.0); Calcium, Ionized 1.17 mmol/L (1.12-1.30); Carboxyhemoglobin (COHb) 0.9 gm% (0.0-3.0); O2 Tension (PaO2) 84.3 mmHg (> 80.0); Potassium - ABG Lab 3.49 mmol/L (3.70-5.30); pH, Arterial 7.42 (7.35-7.45)
[2019-01-21 10:07] LABS: Puncture Site RRA
--- NOTE | 2019-01-21 11:22 | PDOC.PN ---
- Subjective Encounter Start Date: 01/21/19 Encounter Start Time: 10:15 Subjective: lethargic, awakens but falls asleep quickly -: is moving all extremities -: had a dose of xanax and lyrica this am, ambulated with PT this am - Objective Resuscitation Status - Order Detail: 01/19/19 19:51 Resuscitation Status Routine Resuscitation Status: FULL: Full Resuscitation MAR Reviewed: Yes Vital Signs & Weight: Vital Signs (12 hours) Temp Pulse Resp BP Pulse Ox 01/21/19 08:35 86 01/21/19 07:26 86 18 96 01/21/19 07:16 97.6 F 73 16 136/65 95 01/21/19 04:00 98.1 F 77 20 133/60 98 Weight Admit Weight 211 lb 4.8 oz Weight 206 lb 12.8 oz I&O: 01/20/19 01/21/19 01/22/19 06:59 06:59 06:59 Intake Total 480 2000 Output Total 700 2700 Balance -220 -700 Result Diagrams: 01/21/19 05:06 01/21/19 05:06 Additional Labs: Accuchecks 01/21/19 01/21/19 01/21/19 11:01 09:52 06:35 POC Glucose 109 71 108 01/21/19 01/20/19 01/20/19 05:27 23:31 20:32 POC Glucose 52 L* 169 H 81 Phys Exam - Physical Examination HEENT: PERRLA, moist MMs Neck: no JVD, supple Respiratory: no wheezing, no rales Cardiovascular: RRR, no significant murmur Gastrointestinal: soft, non-tender, positive bowel sounds Musculoskeletal: no edema, pulses present Neurological: non-focal, moves all 4 limbs Dx/Plan (1) NSTEMI (non-ST elevated myocardial infarction) Code(s): I21.4 - NON-ST ELEVATION (NSTEMI) MYOCARDIAL INFARCTION Status: Acute Comment: s/p stent to LAD, has rca disease for intervention later (2) Acute exacerbation of CHF (congestive heart failure) Code(s): I50.9 - HEART FAILURE, UNSPECIFIED Status: Acute Qualifiers: Heart failure type: systolic Qualified Code(s): I50.23 - Acute on chronic systolic (congestive) heart failure Comment: ef of 45%, class C (3) CAD (coronary artery disease) Code(s): I25.10 - ATHSCL HEART DISEASE OF [place] CORONARY ARTERY W/O ANG PCTRS Status: Chronic Qualifiers: Coronary Disease-Associated Artery/Lesion type: [place] artery [place] vs. transplanted heart: [place] heart Associated angina: without angina Qualified Code(s): I25.10 - Atherosclerotic heart disease of [place] coronary artery without angina pectoris (4) DM type 2 (diabetes mellitus, type 2) Status: Chronic Qualifiers: Diabetes mellitus intermediate insulin use: with lobsterman use Comment: labile (5) HTN (hypertension) Code(s): I10 - ESSENTIAL (PRIMARY) HYPERTENSION Status: Chronic Qualifiers: Hypertension type: essential hypertension Qualified Code(s): I10 - Essential (primary) hypertension (6) Dyslipidemia Code(s): E78.5 - HYPERLIPIDEMIA, UNSPECIFIED Status: Chronic (7) Cardiac asthma Code(s): I50.1 - LEFT VENTRICULAR FAILURE, UNSPECIFIED Status: Chronic (8) Obesity (BMI 30.0-34.9) Code(s): E66.9 - OBESITY, UNSPECIFIED Status: Chronic - Plan abg is normal, gave 50% dextrose x1, fingerstick around 90's -: cxr, likely lethargy due to xanax and lyrica, will wait it out -: asp precautions, hold oral diet and meds until she wakes up fully -: will dc xanax and lyrica for now -: is on asp, brillinta, coreg, hydralazine, lipitor, synthroid * . hold both glipizide and lantus for today, was hypoglycemic this am, currently on D5NS drip. Will f/u Review of Systems - Medications/Allergies Allergies/Adverse Reactions: Allergies Allergy/AdvReac Type Severity Reaction Status Date / Time latex Allergy Verified 01/19/19 21:32 meperidine [From Demerol] Allergy Verified 01/19/19 21:32 morphine Allergy Verified 01/19/19 21:32 Medications: Current Medications Acetaminophen (Tylenol) 650 mg PO Q4H PRN PRN Reason: Headache/Fever/Mild Pain (1-3) Last Admin: 01/21/19 05:32 Dose: 650 mg Albuterol/Ipratropium (Duoneb) 3 ml NEB Q8YO-AN CECILIA Last Admin: 01/21/19 07:26 Dose: 3 ml Aspirin (Aspirin Chewable) 81 mg PO DAILY [facility] Last Admin: 01/21/19 08:35 Dose: 81 mg Atorvastatin Calcium (Lipitor) 40 mg PO DAILY [facility] Last Admin: 01/21/19 08:34 Dose: 40 mg Bisacodyl (Dulcolax) 10 mg NM DAILYPRN PRN PRN Reason: Constipation Carvedilol (Coreg) 3.125 mg PO BID [facility] Last Admin: 01/21/19 08:34 Dose: 3.125 mg Dextrose/Water (Dextrose 50%) 25 gm SLOW IVP PRN PRN PRN Reason: Hypoglycemia Enoxaparin Sodium (Lovenox) 40 mg SC 0900 [facility] Last Admin: 01/21/19 08:35 Dose: 40 mg Escitalopram Oxalate (Lexapro) 20 mg PO DAILY [facility] Last Admin: 01/21/19 08:35 Dose: 20 mg Famotidine (Pepcid) 20 mg PO QPM [facility] Last Admin: 01/20/19 20:56 Dose: 20 mg Fluticasone Propionate (Flonase Nasal [place]) 0 gm NASAL DAILYPRN PRN PRN Reason: nasal stuffiness Glucagon (Glucagon) 1 mg IM PRN PRN PRN Reason: Hypoglycemia Guaifenesin/Dextromethorphan (Robitussin Dm) 15 ml PO Q4H PRN PRN Reason: Cough Hydralazine HCl (Apresoline) 25 mg PO TID [facility] Last Admin: 01/21/19 08:35 Dose: 25 mg Dextrose/Water (D5w) 1,000 mls @ 0 mls/hr IV .Q0M PRN PRN Reason: Hypoglycemia Dextrose/Sodium Chloride (D5 0.9% Ns) 1,000 mls @ 80 mls/hr IV .[id number] [facility] Insulin Human Lispro (Humalog) 0 units SC .BEDTIME SLIDING SC PRN PRN Reason: Bedtime Correctional Scale Last Admin: 01/20/19 06:05 Dose: 5 unit Insulin Human Lispro (Humalog) 0 units SC .AGGRESSIVE SLIDING PRN PRN Reason: Aggressive Correctional Scale Labetalol HCl (Normodyne) 10 mg SLOW IVP Q4H PRN PRN Reason: SBP Greater Than 180 Levothyroxine Sodium (Synthroid) 50 mcg PO 0600 [facility] Last Admin: 01/21/19 05:32 Dose: 50 mcg Nitroglycerin (Nitrostat) 0.4 mg SL Q5MIN PRN PRN Reason: Chest Pain Senna/Docusate Sodium (Senokot S) 2 tab PO BID [facility] Last Admin: 01/21/19 08:33 Dose: 2 tab Sodium Chloride (Flush - Normal Saline) 10 ml IVF PRN PRN PRN Reason: Saline Flush Ticagrelor (Brilinta) 90 mg PO BID [facility] Last Admin: 01/21/19 08:34 Dose: 90 mg
--- NOTE | 2019-01-21 12:12 | RAD ---
XR Chest 1 View Portable HISTORY: Dyspnea COMPARISON: 01/19/2019 CT and plain film examination of the chest. FINDINGS: Heart size is enlarged. The pulmonary edema changes and effusions appear improved as compar ed to the previous exam. No new process noted. IMPRESSION: Improving pulmonary edema change.
[2019-01-21] MEDS: Dextrose 5 % And 0.9 % NaCl 1,000 ML IV SCH ×2 (16:33→21:43)
--- NOTE | 2019-01-21 17:08 | EKG ---
Test Reason : Blood Pressure : / mmHG Vent. Rate : 084 BPM Atrial Rate : 084 BPM P-R Int : 224 ms QRS Dur : 146 ms QT Int : 448 ms P-R-T Axes : 078 064 082 degrees QTc Int : 529 ms Sinus rhythm with 1st degree A-V block Left bundle branch block Abnormal ECG No previous ECGs available Confirmed by DR. Sofia POLO ([id number]) on 01/21/2019 5:08:04 PM Referred By: Confirmed By:DR. Sofia POLO
--- NOTE | 2019-01-21 17:10 | EKG ---
Test Reason : Blood Pressure : / mmHG Vent. Rate : 073 BPM Atrial Rate : 073 BPM P-R Int : 202 ms QRS Dur : 148 ms QT Int : 488 ms P-R-T Axes : 069 035 075 degrees QTc Int : 537 ms Normal sinus rhythm Left bundle branch block Abnormal ECG When compared with ECG of 20-JAN-2019 16:57, (Unconfirmed) No significant change was found Confirmed by DR. Sofia POLO ([id number]) on 01/21/2019 5:09:36 PM Referred By: DELPHINE Confirmed By:DR. Sofia POLO
--- NOTE | 2019-01-21 18:41 | PDOC.CTH ---
Cardiology Progress Note - Subjective She is doing well. Somnolent after a dose of xanax. - Objective Vital Signs Temp Pulse Pulse Pulse Pulse Resp BP 01/21/19 16:32 78 01/21/19 16:26 99.5 F 78 18 01/21/19 16:00 96.8 F L 75 19 01/21/19 14:05 72 14 01/21/19 11:53 97.6 F 75 18 01/21/19 09:18 87 79 01/21/19 09:17 79 85 119/57 L 01/21/19 08:35 86 01/21/19 07:26 86 18 01/21/19 07:16 97.6 F 73 16 BP BP BP Pulse Ox 01/21/19 16:32 01/21/19 16:26 145/70 H 96 01/21/19 16:00 150/67 H 98 01/21/19 14:05 99 01/21/19 11:53 137/65 100 01/21/19 09:18 129/61 119/57 L 01/21/19 09:17 129/61 01/21/19 08:35 01/21/19 07:26 96 01/21/19 07:16 136/65 95 Admit Weight 211 lb 4.8 oz Weight 206 lb 12.8 oz 01/20/19 01/21/19 01/22/19 06:59 06:59 06:59 Intake Total 480 2000 Output Total 700 2700 Balance -220 -700 - Physical Examination General/Neuro: NAD Neck: no JVD present Lungs: CTA, unlabored respirations Heart: RRR Abdomen: NT/ND Extremities: + edema B (trace) - Telemetry Telemetry Rhythm: NSR - Labs Result Diagrams: 01/21/19 05:06 01/21/19 05:06 Troponin/CKMB CK-MB (CK-2) 4.0 ng/mL (0-6.6) 01/19/19 19:06 Troponin I 0.502 ng/mL (< 0.028) H* 01/20/19 01:18 - Assessment/Plan 1. NSTEMI 2. S/P PCI to LAD with POOJA. 3. Residual RCA disease. 4. CKD stage 3 close to 4. PLAN: - Continue MIGUEL ANGEL. - If renal function remains stable will bring back in one month to revascularize RCA. - May discharge home from cardiac perspective at any time
[2019-01-21] MEDS: Famotidine 20 MG TAB PO SCH (21:39)
[2019-01-22] MEDS: Acetaminophen 325 MG TAB PO PRN (03:29)
[2019-01-22] MEDS: Levothyroxine Sodium 50 MCG TAB PO SCH (06:10)
[2019-01-22] MEDS: Atorvastatin Calcium 40 MG TAB PO SCH (09:05)
[2019-01-22] MEDS: hydrALAZINE 25 MG TAB PO SCH (09:05)
[2019-01-22] MEDS: TICAGRELOR 90 MG TABLET PO SCH (09:05)
[2019-01-22] MEDS: Senokot S 8.6-50 MG TAB PO SCH (09:05)
[2019-01-22] MEDS: Carvedilol 3.125 MG TAB PO SCH (09:05)
[2019-01-22] MEDS: Escitalopram Oxalate 20 mg Tablet PO SCH (09:05)
[2019-01-22] MEDS: Aspirin Chewable 81 MG TAB PO SCH (09:05)
[2019-01-22] MEDS: Enoxaparin Sodium 40 MG/0.4 ML SYRINGE SC SCH (09:07)
[2019-01-22 14:39] VITALS: BMI 32.8
[2019-01-22 16:28] VITALS: BP 150/71; TEMP 98.2
== END 2019-01-22 16:45 | disposition home or self-care (01) | DRG 246 ==
LOC: ERS 17:09 → 2NO 21:00
PROVIDERS: ADMIT Internal Medicine; ATTEND Internal Medicine
PROC: 027034Z Dilation of Coronary Artery, One Artery with Drug-eluting Intraluminal Device, Percutaneous Approach (ICD-10-PCS; principal; 2019-01-19)
PROC: 4A023N7 Measurement of Cardiac Sampling and Pressure, Left Heart, Percutaneous Approach (ICD-10-PCS; 2019-01-19)
PROC: B2151ZZ Fluoroscopy of Left Heart using Low Osmolar Contrast (ICD-10-PCS; 2019-01-19)
PROC: B2111ZZ Fluoroscopy of Multiple Coronary Arteries using Low Osmolar Contrast (ICD-10-PCS; 2019-01-19)
DX: I13.0 Hypertensive heart and chronic kidney disease with heart failure and stage 1 through stage 4 chronic kidney disease, or unspecified chronic kidney disease (principal); I50.23 Acute on chronic systolic (congestive) heart failure; I21.4 Non-ST elevation (NSTEMI) myocardial infarction; N17.9 Acute kidney failure, unspecified; J45.21 Mild intermittent asthma with (acute) exacerbation; E11.42 Type 2 diabetes mellitus with diabetic polyneuropathy; I25.10 Atherosclerotic heart disease of native coronary artery without angina pectoris; E78.5 Hyperlipidemia, unspecified; E66.9 Obesity, unspecified; E03.9 Hypothyroidism, unspecified; E11.22 Type 2 diabetes mellitus with diabetic chronic kidney disease; G89.29 Other chronic pain; N18.3 Chronic kidney disease, stage 3 (moderate); M54.9 Dorsalgia, unspecified; Z79.899 Other long term (current) drug therapy; Z79.4 Long term (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 of insulin; Z90.710 Acquired absence of both cervix and uterus; Z98.51 Tubal ligation status; Z88.8 Allergy status to other drugs, medicaments and biological substances; Z88.5 Allergy status to narcotic agent; Z91.040 Latex allergy status; Z68.39 Body mass index [BMI] 39.0-39.9, adult; Z95.818 Presence of other cardiac implants and grafts
CPT/HCPCS: 36415; 36416; 71045; 71275; 80048; 80053; 81001; 82805; 84443; 84484; 85025; 85347; 92928; 93005; 93010; 93306; 93458; 93798; 94640; 99152; 99153; C1769; C9600; J1644; J1650; J1815; J1940; J2001; J2250; J3010; J7620; Q9966; Q9967

== ENCOUNTER 2019-02-27 14:05 | Emergency (ER) | payer OTHER ==
[2019-02-27 14:38] LABS: #Eosinphils 0.1 thou/uL (0.0-0.7); #Lymphocytes 1.9 thou/uL (1.20-3.40); #Monocytes 0.4 thou/uL (0.11-0.59); #Neutrophils 3.5 thou/uL (1.40-6.50); %Basophils 0.6 % (0.0-1.0); %Eosinophils 2.1 % (0.0-10.0); %Lymphocytes 31.7 % (21.0-51.0); %Monocytes 7.2 % (0.0-10.0); %Neutrophils 58.5 % (42.0-75.0); Mean Corpuscular HGB CONC 33.3 g/dL (32.0-36.0); Mean Corpuscular Hemoglobin 27.2 pg (27.0-31.0); Mean Corpuscular Volume 81.6 fL (78.0-98.0); Mean Platelet Volume 9.1 fL (7.4-10.4); Platelet Count 260 thou/uL (130-400); RBC Distribution Width 13.4 % (11.5-14.5); Red Blood Cell (RBC) Count 4.05 mill/uL (4.20-5.40)
[2019-02-27 15:00] LABS: ALT (SGPT) 8 U/L (8-55); AST (SGOT) 10 U/L (5-34); Albumin 4.1 g/dL (3.4-4.8); Alkaline Phosphatase 119 U/L (40-150); Anion Gap 16 mmol/L (10-20); BUN (Urea Nitrogen) 74 mg/dL (9.8-20.1); Bilirubin, Total 0.6 mg/dL (0.2-1.2); CK (CPK) 30 U/L (29-168); Calc. Creatinine Clearance 0 mL/min (70-130); Carbon Dioxide 30 mmol/L (23-31); Chloride 93 mmol/L (98-107); Estimated GFR-MDRD 16; Globulin 3.1 g/dL (2.4-3.5); Glucose 179 mg/dL (80-115); Lipase 119 U/L (8-78); Protein, Total 7.2 g/dL (6.0-8.3); Sodium 135 mmol/L (136-145)
--- NOTE | 2019-02-27 15:57 | CT ---
Exam: Head CT without contrast HISTORY: Dizziness. Memory problems. COMPARISON: 01/21/2018 FINDINGS: Hemorrhage: No intraparenchymal hemorrhage or extra-axial hematoma. Brain parenchyma: Cortical stephenson-white matter differentiation is preserved. No mass effect or midline shift. Basilar cisterns are patent.Brain volume, less than expected for patient's age. Remote lacunar infarct involving the superior aspect of the left lentiform nucleus. Ventricular system: Ventricles and sulci are patent and symmetric. Calvarium: Intact. Sinuses and mastoid air cells: Adequate aeration. IMPRESSION: No acute intracranial process.
--- NOTE | 2019-02-27 16:03 | RAD ---
Exam: Chest one view HISTORY:Shortness of breath Comparison: 02/20/2019 FINDINGS: Cardiac silhouette:Upper normal Aorta: Unremarkable Pulmonary vessels: Normal Costophrenic angles: Clear LUNGS: No masses or consolidation. Chronic changes in the lung parenchyma. Pneumothorax: None Osseous abnormalities: None IMPRESSION: No acute cardiopulmonary process.
[2019-02-27 16:30] LABS: Bacteria/HPF None Seen HPF (None Seen); Bilirubin Negative (Negative); Blood, Urine Negative (Negative); Clarity Clear (Clear); Glucose, Urine (Dipstick) Normal (Negative); Leukocyte 500 Leu/uL (Negative); Nitrite Negative (Negative); Protein, Urine (Dipstick) Negative (Neg-Trace); RBC/HPF 0-3 HPF (0-3); Squamous Epithelial 0-3 HPF (0-3); Urobilinogen Normal mg/dL (Less than 2); WBC/HPF Greater than 50 HPF (0-3)
[2019-02-27] MEDS ORDERED: Meclizine HCl 25 MG TAB ONE (16:39)
[2019-02-27] MEDS ORDERED: Metoclopramide HCl 10 MG/2 ML VIAL ONE (18:20)
[2019-02-27] MEDS ORDERED: diphenhydrAMINE 50 MG/ML VIAL ONE (18:23)
--- NOTE | 2019-03-01 13:42 | EKG ---
Test Reason : Blood Pressure : / mmHG Vent. Rate : 070 BPM Atrial Rate : 070 BPM P-R Int : 206 ms QRS Dur : 140 ms QT Int : 502 ms P-R-T Axes : 044 -02 042 degrees QTc Int : 542 ms Normal sinus rhythm Left bundle branch block Abnormal ECG Confirmed by SHAYE MULLINS, BRISEIDA ([id number]), metropolitan editor JANELL THORNE ([id number]) on 03/01/2019 1:42:33 PM Referred By: Confirmed By:BRISEIDA CR MD
== END 2019-02-27 18:35 | disposition home or self-care (01) ==
LOC: ERS 14:05
DX: N39.0 Urinary tract infection, site not specified (principal); E11.9 Type 2 diabetes mellitus without complications; E78.5 Hyperlipidemia, unspecified; J44.9 Chronic obstructive pulmonary disease, unspecified; I25.2 Old myocardial infarction; I10 Essential (primary) hypertension; E03.9 Hypothyroidism, unspecified; I21.4 Non-ST elevation (NSTEMI) myocardial infarction; F41.9 Anxiety disorder, unspecified; F32.9 Major depressive disorder, single episode, unspecified; Z79.899 Other long term (current) drug therapy; Z79.4 Long term (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 of insulin; G43.909 Migraine, unspecified, not intractable, without status migrainosus
CPT/HCPCS: 36415; 51701; 70450; 71045; 80053; 81003; 81015; 82550; 83690; 84484; 85025; 93005; 94760; 96361; 96374; 96375; J1200; J2765; J8597

== ENCOUNTER 2019-03-05 18:01 | Inpatient (IN) | payer OTHER ==
[2019-03-05 18:43] LABS: #Eosinphils 0.1 thou/uL (0.0-0.7); #Lymphocytes 1.3 thou/uL (1.20-3.40); #Monocytes 0.4 thou/uL (0.11-0.59); #Neutrophils 4.9 thou/uL (1.40-6.50); %Basophils 0.4 % (0.0-1.0); %Eosinophils 1.6 % (0.0-10.0); %Lymphocytes 19.1 % (21.0-51.0); %Monocytes 5.3 % (0.0-10.0); %Neutrophils 73.6 % (42.0-75.0); Hemoglobin 10.1 g/dL (12.0-16.0); Mean Corpuscular HGB CONC 33.5 g/dL (32.0-36.0); Mean Corpuscular Hemoglobin 27.4 pg (27.0-31.0); Mean Corpuscular Volume 81.7 fL (78.0-98.0); Mean Platelet Volume 8.8 fL (7.4-10.4); Platelet Count 218 thou/uL (130-400); RBC Distribution Width 13.4 % (11.5-14.5); Red Blood Cell (RBC) Count 3.68 mill/uL (4.20-5.40); White Blood Cell (WBC) Count 6.7 thou/uL (4.8-10.8)
[2019-03-05 18:56] LABS: ALT (SGPT) 8 U/L (8-55); AST (SGOT) 9 U/L (5-34); Albumin 3.8 g/dL (3.4-4.8); Alkaline Phosphatase 120 U/L (40-150); Anion Gap 14 mmol/L (10-20); BUN (Urea Nitrogen) 55 mg/dL (9.8-20.1); Bilirubin, Total 0.5 mg/dL (0.2-1.2); Calc. Creatinine Clearance 0 mL/min (70-130); Calcium 9.8 mg/dL (7.8-10.44); Carbon Dioxide 30 mmol/L (23-31); Chloride 101 mmol/L (98-107); Estimated GFR-MDRD 19; Globulin 2.9 g/dL (2.4-3.5); Glucose 124 mg/dL (80-115); Potassium 3.9 mmol/L (3.5-5.1); Protein, Total 6.7 g/dL (6.0-8.3); Sodium 141 mmol/L (136-145)
[2019-03-05 19:00] LABS: Bilirubin Negative (Negative); Blood, Urine Negative (Negative); Clarity Turbid (Clear); Glucose, Urine (Dipstick) Normal (Negative); Leukocyte 500 Leu/uL (Negative); Nitrite Negative (Negative); Protein, Urine (Dipstick) Negative (Neg-Trace); RBC/HPF 0-3 HPF (0-3); Squamous Epithelial 0-3 HPF (0-3); Urobilinogen Normal mg/dL (Less than 2); WBC/HPF Greater than 50 HPF (0-3)
[2019-03-05 19:02] LABS: Bacteria/HPF 4+ HPF (None Seen)
--- NOTE | 2019-03-05 19:31 | RAD ---
RADIOGRAPH CHEST 1 VIEW: DATE: 03/05/2019 HISTORY: 71-year-old female with generalized weakness and status post acute chest trauma from fall. FINDINGS: There is no airspace density, pulmonary edema, or pneumothorax. The lateral costophrenic angles are n ot effaced. IMPRESSION: No acute pulmonary findings.
--- NOTE | 2019-03-05 19:31 | RAD ---
Radiograph right ankle 3 views: DATE: 03/05/2019 Time: 7:18 PM HISTORY: 63-year-old female with traumatic ankle pain after fall. COMPARISON: 10/10/2017 FINDINGS: Again noted is the exuberant callus involving laterally displaced, healed old fracture involving the distal fibular diaphysis. The previously demonstrated acute or subacute fracture of the medial malleolus has now completely healed. No definite acute fracture is identified currently. There is asy mmetry of the ankle mortise, widened medially, similar to prior study. Very severe arthritic changes at the first and second TMT joints, and moderate such DJD at rest of the TMT's. No acute disl ocation. IMPRESSION: 1. No acute fracture identified. 2. Significant deformity and exuberant chronic callus involving or old healed fracture of distal fibu lar shaft. 3. Interval healing of previously demonstrated acute fracture of medial malleolus. 4. Moderate osteoarthrosis of ankle mortise. 5. Severe osteoarthrosis of first and second tarsometatarsal joints, and moderate osteoarthrosis of r est of tarsometatarsal joints.
[2019-03-05] MEDS ORDERED: cefTRIAXone\\ROCEPHIN 1 GM VIAL ONE (19:52)
--- NOTE | 2019-03-05 19:53 | CT ---
CT HEAD NONCONTRAST: 03/05/19 HISTORY: Fall. Altered mental status. COMPARISON: 02/27/19. FINDINGS: There is no evidence of acute intracranial hemorrhage or infarct. The ventricles appear normal in siz e, shape, and position. Old lacunar infarct left basal ganglia is stable. There is no mass effect or shift of midline structures. Visualized paranasal sinuses remain well aerated. IMPRESSION: Chronic type findings are stable. No acute intracranial abnormalities are demonstrated. POS: BST
[2019-03-06] MEDS ORDERED: Sodium Chloride 0.45% 1,000 ML IV SCH (00:04)
[2019-03-06 00:30] VITALS: BMI 30.9
[2019-03-06] MEDS ORDERED: Guaifenesin DM 100-10/5 ML UDCUP PO PRN (01:57)
[2019-03-06] MEDS ORDERED: Dextrose 50% Abboject 50 ML SYRINGE SLOW IVP PRN (01:57)
[2019-03-06] MEDS ORDERED: Dextrose 5% in Water 1,000 ML IV PRN (01:57)
[2019-03-06] MEDS ORDERED: Ondansetron PF 4 MG/2 ML Vial IVP PRN (01:57)
[2019-03-06] MEDS ORDERED: HumaLOG 300 UNITS/3 ML VIAL SC PRN (01:57)
[2019-03-06] MEDS ORDERED: Bisacodyl 10 MG SUPP PR PRN (01:57)
[2019-03-06] MEDS ORDERED: Fleet Enema 133 ML BOT PR SCH (02:30)
--- NOTE | 2019-03-06 02:39 | HP ---
REASON FOR ADMISSION: Acute kidney injury, dehydration, possible orthostasis, and generalized weakness. HISTORY OF PRESENTING ILLNESS: The patient gives history of falling nearly 3 times at home. She fell while she was trying to stand up from the toilet seat and in fact was trying to pull her pants up, but the patient felt very dizzy and fell to the floor. She hit the left side of her forehead on the toilet seat. The patient fell 2 other times at home. She is also feeling dizzy. The patient says she could not hold herself up as her legs were weak. She was recently discharged on the 17 after being treated for urinary tract infection. She also had orthostasis then. Ms. Mendez mentions that she ambulates by herself. PAST MEDICAL AND SURGICAL HISTORY: Diabetes mellitus type 2, CKD stage 3, chronic back pain, peripheral neuropathy, hypertension, coronary artery disease with prior stent, dyslipidemia, fibromyalgia, COPD, hypothyroidism, hysterectomy, right leg surgery, cyst removed from the left upper extremity, anxiety and depression. CURRENT MEDICATIONS: The patient is on: 1. Atorvastatin 40 mg p.o. daily. 2. Lexapro 20 mg p.o. daily. 3. Fluticasone nasal spray p.r.n. 4. Glipizide 10 mg twice daily. 5. Hydralazine 50 mg 3 times daily. 6. NovoLog 30 units subcutaneous before meals. 7. Lantus 30 units subcutaneous twice daily. 8. Levothyroxine 50 mcg p.o. daily. 9. Lisinopril 5 mg p.o. daily. 10. Lyrica 100 mg p.o. twice daily. 11. Brilinta 90 mg p.o. twice daily. 12. Tizanidine 4 mg daily p.r.n. 13. Zinc oxide 50 mg p.o. daily. 14. Aspirin 81 mg p.o. daily. ALLERGIES: LATEX, MEPERIDINE, AND MORPHINE. PERSONAL HISTORY: Does not abuse alcohol or drugs. No history of smoking. FAMILY HISTORY: Mother of Pick's dementia at the age of 58 years. Father had history of mesothelioma and at the age of 65 years. CODE STATUS: Full. Power of bankruptcy attorney is her , Mr. Burgos. REVIEW OF SYSTEMS: CONSTITUTIONAL: Negative for weight loss or gain, ability to conduct usual activities. SKIN: Negative for rash, itching. EYES: Negative for double vision, pain. ENT/MOUTH: Negative for nose bleeding, neck stiffness, pain, tenderness. CARDIOVASCULAR: Negative for palpitations, dyspnea on exertion, orthopnea. RESPIRATORY: Negative for shortness of breath, wheezing, cough, hemoptysis, fever or night sweats. GASTROINTESTINAL: Negative for poor appetite, abdominal pain, heartburn, nausea , vomiting, constipation, or diarrhea. GENITOURINARY: Negative for urgency, frequency, dysuria, nocturia. MUSCULOSKELETAL: Negative for pain, swelling. NEUROLOGIC/PSYCHIATRIC: Negative for anxiety, depression. ALLERGY/IMMUNOLOGIC: Negative for skin rash, bleeding tendency. PHYSICAL EXAMINATION: GENERAL: The patient is a 63-year-old female, who is currently not in any acute distress. VITAL SIGNS: Blood pressure 126/70, pulse 70 per minute, respiratory rate 18 per minute, temperature 98.2 degrees Fahrenheit, and saturating 100% on room air. NECK: Supple. No elevated JVD. HEENT: Eyes; extraocular muscles intact. Pupils reacting to light. Oral cavity, mucous membranes are dry. No exudates or congestion. CARDIOVASCULAR SYSTEM: S1 and S2 heard. Regular rhythm. RESPIRATORY: Air entry 1+ bilateral. No rales or rhonchi. ABDOMEN: Soft. Bowel sounds heard. No tenderness, rigidity, or guarding. EXTREMITIES: No peripheral edema or calf tenderness. The patient has bruises on both knees from prior falling. No calf tenderness. Peripheral pulses are 1+ bilateral. No ischemic ulcerations or gangrene. CENTRAL NERVOUS SYSTEM: No gross focal deficits noted. The patient is lethargic, but oriented well. PSYCHIATRIC SYSTEM: The patient's mood is euthymic. No hallucinations or delusions. LABORATORY DATA: White count of 6, H and H 10 and 30, platelet count 218, BUN 55, creatinine 2.5, serum bicarb 30, serum glucose 124. BNP 143. Liver enzymes within normal limits. UA shows positive leukocyte esterase, greater than 50 wbc's, and 4+ bacteria. DIAGNOSTIC DATA: Chest x-ray done shows no acute cardiopulmonary abnormalities. Right ankle 3 view x-ray done shows no acute fracture. There is significant deformity and exuberant chronic callus involving old healed fracture of distal fibular shaft. Interval healing of fracture of medial malleolus is seen. Moderate osteoarthrosis of ankle mortise. Severe osteoarthrosis of first and second tarsometatarsal joints. EKG done shows sinus rhythm at 72 beats per minute. There is LBBB seen. QRS duration is 148 milliseconds, corrected QT is 516 milliseconds. CLINICAL IMPRESSION AND PLAN: The patient will be under observation to medical floor for acute kidney injury, moderate dehydration, possible orthostasis with recurrent falls. She has had recent placement of stents. In view of this, we will continue her on aspirin and Brilinta along with Lipitor. PT/OT evaluations will be requested. Orthostatic blood pressures will be obtained. Her tizanidine will be discontinued. We will continue on Lyrica for peripheral neuropathy. The patient will be placed on ceftriaxone for her urinary tract infection. She was recently treated for urinary tract infection and was sent home on Omnicef. We will obtain a clean-catch specimen. She is also constipated for the last 5 days now. The patient says that she has a feeling that her stool is in the rectum. In view of this, we will give her Dulcolax suppository and Fleets enema in that order to help her pass stool. Bladder scan will be obtained soon after urination to see for residuals x2. We will continue her Lantus, Synthroid, lisinopril, and glipizide as before. We will request PT evaluation and Case Management consultation for help with discharge planning. We will gently hydrate her with normal saline at 100 mL/h for a total of 2 L. If the patient remains lethargic and deconditioned, she will be switched over to inpatient status and we will await for urine culture. If not, she can be discharged tomorrow once she recuperates well. Job ID: [id number] [facility]
[2019-03-06] MEDS: Sodium Chloride 0.9% 1,000 ML IV SCH ×2 (02:45→11:53)
[2019-03-06] MEDS: Levothyroxine Sodium 50 MCG TAB PO SCH (05:12)
[2019-03-06] MEDS: HumaLOG 300 UNITS/3 ML VIAL SC PRN (06:16)
[2019-03-06 06:38] LABS: #Eosinphils 0.1 thou/uL (0.0-0.7); #Lymphocytes 1.7 thou/uL (1.20-3.40); #Monocytes 0.5 thou/uL (0.11-0.59); #Neutrophils 4.5 thou/uL (1.40-6.50); %Basophils 0.7 % (0.0-1.0); %Eosinophils 1.9 % (0.0-10.0); %Lymphocytes 25.1 % (21.0-51.0); %Monocytes 7.1 % (0.0-10.0); %Neutrophils 65.3 % (42.0-75.0); Hemoglobin 9.6 g/dL (12.0-16.0); Mean Corpuscular HGB CONC 33.1 g/dL (32.0-36.0); Mean Corpuscular Hemoglobin 27.2 pg (27.0-31.0); Mean Corpuscular Volume 82.4 fL (78.0-98.0); Mean Platelet Volume 9.5 fL (7.4-10.4); Platelet Count 212 thou/uL (130-400); RBC Distribution Width 13.4 % (11.5-14.5); Red Blood Cell (RBC) Count 3.52 mill/uL (4.20-5.40); White Blood Cell (WBC) Count 6.9 thou/uL (4.8-10.8)
[2019-03-06 07:01] LABS: Anion Gap 14 mmol/L (10-20); BUN (Urea Nitrogen) 51 mg/dL (9.8-20.1); Calc. Creatinine Clearance 37 mL/min (70-130); Calcium 9.1 mg/dL (7.8-10.44); Carbon Dioxide 27 mmol/L (23-31); Chloride 105 mmol/L (98-107); Estimated GFR-MDRD 21; Glucose 185 mg/dL (80-115); Potassium 3.6 mmol/L (3.5-5.1); Sodium 142 mmol/L (136-145)
[2019-03-06] MEDS ORDERED: HumaLOG 300 UNITS/3 ML VIAL SC SCH (07:30)
[2019-03-06] MEDS ORDERED: INSULIN ASPART 30 UNIT SQ SCH (07:30)
[2019-03-06] MEDS ORDERED: cefTRIAXone\\ROCEPHIN 1 GM in Sodium Chloride 0.9% 100 ML IVPB SCH (08:00)
[2019-03-06] MEDS ORDERED: hydrALAZINE 25 MG TAB PO SCH (09:00)
[2019-03-06] MEDS ORDERED: Lisinopril 5 MG TAB PO SCH (09:00)
[2019-03-06] MEDS: TICAGRELOR 90 MG TABLET PO SCH ×2 (09:07→19:28)
[2019-03-06] MEDS: Aspirin Chewable 81 MG TAB PO SCH (09:08)
[2019-03-06] MEDS: glipiZIDE 10 MG TAB PO SCH ×2 (09:08→17:53)
[2019-03-06] MEDS: Pregabalin 50 MG CAP PO SCH ×2 (09:08→19:29)
[2019-03-06] MEDS: Escitalopram Oxalate 20 mg Tablet PO SCH (09:08)
[2019-03-06] MEDS: Atorvastatin Calcium 40 MG TAB PO SCH (09:10)
[2019-03-06] MEDS: Famotidine 20 MG TAB PO SCH (09:10)
[2019-03-06] MEDS: Senokot S 8.6-50 MG TAB PO SCH ×2 (09:11→19:20)
[2019-03-06] MEDS: Enoxaparin Sodium 30 MG/0.3 ML SYRINGE SC SCH (09:11)
[2019-03-06] MEDS: Polyethylene Glycol 3350 17 GM Packet PO SCH (09:11)
[2019-03-06 12:05] LABS: Troponin I Less than 0.010 ng/mL (< 0.028)
[2019-03-06 15:05] LABS: Troponin I Less than 0.010 ng/mL (< 0.028)
--- NOTE | 2019-03-06 17:24 | PDOC.HOSPP ---
- Subjective Encounter Date: 03/06/19 Encounter Time: 11:20 Subjective: 63 y/o obese female with DM complicated with nephropathy and neuropathy, CAD and others admitted with recurrent falls associated with trauma to face. Was just discharged after hospitalization for UTI amongst others. Patient was on antihypertensives as well asdiuretics and was found also to have PATRICA. Feeling but gait is still unstable and dizziness persists. Denied nausea and vomiting. Patient reported feeling of incomplete bladder emptying and was noted to have varying amounts of post void residuals. - Objective Vital Signs & Weight: Vital Signs (12 hours) Temp Pulse Pulse Pulse Pulse Resp BP 03/06/19 16:41 97.9 F 82 20 03/06/19 12:00 98.1 F 92 20 03/06/19 10:09 89 89 89 03/06/19 09:09 89 137/63 03/06/19 09:08 89 137/63 03/06/19 09:00 03/06/19 08:55 98 F 88 16 03/06/19 07:30 98.2 F 82 22 H BP BP BP BP BP BP Pulse Ox 03/06/19 16:41 167/50 H 99 03/06/19 12:00 155/65 H 95 03/06/19 10:09 149/70 H 121/70 120/77 03/06/19 09:09 03/06/19 09:08 03/06/19 09:00 148/52 H 104/62 73/52 L 03/06/19 08:55 137/63 97 03/06/19 07:30 138/66 96 Weight Weight 203 lb 8 oz I&O: 03/05/19 03/06/19 03/07/19 06:59 06:59 06:59 Intake Total 800 Output Total 500 Balance 300 Result Diagrams: 03/06/19 06:04 03/06/19 06:04 Additional Labs: Accuchecks 03/06/19 03/06/19 03/06/19 15:46 11:59 04:14 POC Glucose 141 H 153 H 221 H Hospitalist ROS - Medication Medications: Active Medications Generic Name Dose Route Start Last Admin Trade Name Freq PRN Reason Stop Dose Admin Aspirin 81 mg 03/06/19 09:00 03/06/19 09:08 Aspirin Chewable PO 81 mg DAILY CECILIA Administration Atorvastatin Calcium 40 mg 03/06/19 09:00 03/06/19 09:10 Lipitor PO 40 mg DAILY CECILIA Administration Enoxaparin Sodium 30 mg 03/06/19 09:00 03/06/19 09:11 Lovenox SC 30 mg 0900 CECILIA Administration Escitalopram Oxalate 20 mg 03/06/19 09:00 03/06/19 09:08 Lexapro PO 20 mg DAILY CECILIA Administration Famotidine 20 mg 03/06/19 09:00 03/06/19 09:10 Pepcid PO 20 mg DAILY CECILIA Administration Glipizide 10 mg 03/06/19 07:30 03/06/19 09:08 Glucotrol PO 10 mg BID-AC CECILIA Administration Sodium Chloride 1,000 mls @ 100 mls/hr 03/06/19 02:00 03/06/19 11:53 Normal Saline 0.9% IV 03/06/19 21:59 1,000 mls .Q10H CECILIA Administration Insulin Human Lispro 0 units 03/06/19 01:57 03/06/19 06:16 Humalog SC 4 unit .MODERATE SLIDING SC PRN Administration Moderate Correctional Scale Levothyroxine Sodium 50 mcg 03/06/19 06:00 03/06/19 05:12 Synthroid PO 50 mcg 0600 CECILIA Administration Polyethylene Glycol 17 gm 03/06/19 09:00 03/06/19 09:11 Miralax PO Not Given DAILY [facility] Pregabalin 100 mg 03/06/19 09:00 03/06/19 09:08 Lyrica PO 100 mg BID CECILIA Administration Senna/Docusate Sodium 2 tab 03/06/19 09:00 03/06/19 09:11 Senokot S PO Not Given BID [facility] Ticagrelor 90 mg 03/06/19 09:00 03/06/19 09:07 Brilinta PO 90 mg BID CECILIA Administration - Exam General Appearance: awake alert Eye: anicteric sclera Eye - other findings: mild left conjunctival injection and periorbital swelling Neck: symmetric, no JVD Heart: RRR Respiratory: no wheezes, no ronchi, normal chest expansion Gastrointestinal: soft, non-distended, normal bowel sounds Extremities: no cyanosis, no edema Neurological: CN's grossly intact, no focal deficits Psychiatric: normal affect, A&O x 3 Hosp A/P (1) Orthostatic syncope Code(s): I95.1 - ORTHOSTATIC HYPOTENSION Status: Acute (2) PATRICA (acute kidney injury) Code(s): N17.9 - ACUTE KIDNEY FAILURE, UNSPECIFIED Status: Acute (3) Chronic kidney disease, stage 3 Code(s): N18.3 - CHRONIC KIDNEY DISEASE, STAGE 3 (MODERATE) Status: Acute (4) Urinary retention Code(s): R33.9 - RETENTION OF URINE, UNSPECIFIED Status: Acute (5) Ischemic cardiomyopathy Code(s): I25.5 - ISCHEMIC CARDIOMYOPATHY Status: Acute (6) Mitral regurgitation Status: Acute (7) Pulmonary HTN Code(s): I27.20 - PULMONARY HYPERTENSION, UNSPECIFIED Status: Acute (8) COPD (chronic obstructive pulmonary disease) Status: Acute (9) Orthostatic hypotension Code(s): I95.1 - ORTHOSTATIC HYPOTENSION Status: Acute (10) UTI (urinary tract infection) Status: Acute (11) CAD (coronary artery disease) Code(s): I25.10 - ATHSCL HEART DISEASE OF [place] CORONARY ARTERY W/O ANG PCTRS Status: Chronic Qualifiers: Coronary Disease-Associated Artery/Lesion type: [place] artery [place] vs. transplanted heart: [place] heart Associated angina: without angina Qualified Code(s): I25.10 - Atherosclerotic heart disease of [place] coronary artery without angina pectoris (12) Chronic stage c diastolic heart failure Code(s): I50.32 - CHRONIC DIASTOLIC (CONGESTIVE) HEART FAILURE Status: Chronic (13) DM type 2 (diabetes mellitus, type 2) Status: Chronic Qualifiers: Diabetes mellitus retirement insulin use: with manager long term care use (14) HTN (hypertension) Code(s): I10 - ESSENTIAL (PRIMARY) HYPERTENSION Status: Chronic Qualifiers: Hypertension type: essential hypertension Qualified Code(s): I10 - Essential (primary) hypertension - Plan Continue NS therapy DC diuretic and antihypertensives Monitor volume status, renal function and electrolytes. Continue antibiotic. Start flomax. Monitor orthostatic vitals. Ruled out acute DE with serial troponin. PT/OT Continue other treatments
[2019-03-06] MEDS: Tamsulosin HCl 0.4 MG CAP PO SCH (19:28)
[2019-03-06] MEDS: Acetaminophen 325 MG TAB PO PRN (19:29)
[2019-03-06] MEDS: cefTRIAXone\\ROCEPHIN 1 GM in Sodium Chloride 0.9% 100 ML IVPB SCH (19:30)
[2019-03-06] MEDS ORDERED: ALPRAZolam 1 MG TAB PO SCH (20:15)
[2019-03-06] MEDS: Insulin Glargine 30 UNITS in Pre-Filled Syringe 1 EACH SC SCH (20:26)
[2019-03-06] MEDS ORDERED: Non-Formulary Item 1 EACH (Insulin Glargine,Hum.Rec.Anlog [Lantus Solostar] 30 UNIT) SQ SCH (21:00)
[2019-03-07] MEDS: Levothyroxine Sodium 50 MCG TAB PO SCH (04:59)
[2019-03-07 06:25] LABS: #Eosinphils 0.2 thou/uL (0.0-0.7); #Lymphocytes 1.6 thou/uL (1.20-3.40); #Monocytes 0.4 thou/uL (0.11-0.59); #Neutrophils 4.1 thou/uL (1.40-6.50); %Basophils 0.6 % (0.0-1.0); %Eosinophils 3.1 % (0.0-10.0); %Lymphocytes 24.9 % (21.0-51.0); %Neutrophils 65.3 % (42.0-75.0); Hemoglobin 8.7 g/dL (12.0-16.0); Mean Corpuscular HGB CONC 33.3 g/dL (32.0-36.0); Mean Corpuscular Hemoglobin 27.4 pg (27.0-31.0); Mean Corpuscular Volume 82.1 fL (78.0-98.0); Mean Platelet Volume 9.6 fL (7.4-10.4); Platelet Count 191 thou/uL (130-400); RBC Distribution Width 13.1 % (11.5-14.5); Red Blood Cell (RBC) Count 3.19 mill/uL (4.20-5.40); White Blood Cell (WBC) Count 6.2 thou/uL (4.8-10.8)
[2019-03-07 06:46] LABS: Albumin 3.1 g/dL (3.4-4.8); Anion Gap 15 mmol/L (10-20); BUN (Urea Nitrogen) 35 mg/dL (9.8-20.1); BUN/Creatinine Ratio 17.95; Calc. Creatinine Clearance 44 mL/min (70-130); Calcium 9.1 mg/dL (7.8-10.44); Carbon Dioxide 23 mmol/L (23-31); Chloride 110 mmol/L (98-107); Estimated GFR-MDRD 26; Glucose 155 mg/dL (80-115); Phosphorus 4.2 mg/dL (2.3-4.7); Potassium 3.8 mmol/L (3.5-5.1); Sodium 144 mmol/L (136-145)
[2019-03-07] MEDS: Polyethylene Glycol 3350 17 GM Packet PO SCH (09:32)
[2019-03-07] MEDS: Senokot S 8.6-50 MG TAB PO SCH ×2 (09:32→19:15)
[2019-03-07] MEDS: TICAGRELOR 90 MG TABLET PO SCH ×2 (09:37→20:01)
[2019-03-07] MEDS: glipiZIDE 10 MG TAB PO SCH ×2 (09:37→16:39)
[2019-03-07] MEDS: Pregabalin 50 MG CAP PO SCH ×2 (09:37→20:02)
[2019-03-07] MEDS: Enoxaparin Sodium 30 MG/0.3 ML SYRINGE SC SCH (09:38)
[2019-03-07] MEDS: Aspirin Chewable 81 MG TAB PO SCH (09:38)
[2019-03-07] MEDS: Escitalopram Oxalate 20 mg Tablet PO SCH (09:38)
[2019-03-07] MEDS: Famotidine 20 MG TAB PO SCH (09:38)
[2019-03-07] MEDS: Atorvastatin Calcium 40 MG TAB PO SCH (09:38)
[2019-03-07] MEDS ORDERED: Sodium Bicarbonate Tab 325 MG TAB PO SCH ×2 (10:57→11:15)
[2019-03-07] MEDS ORDERED: Sodium Chloride 0.9% 1,000 ML IV SCH (11:45)
[2019-03-07] MEDS: HumaLOG 300 UNITS/3 ML VIAL SC PRN (12:36)
[2019-03-07] MEDS: Acetaminophen 325 MG TAB PO PRN (12:37)
[2019-03-07] MEDS: Insulin Glargine 30 UNITS in Pre-Filled Syringe 1 EACH SC SCH (19:33)
[2019-03-07] MEDS: Sodium Bicarbonate Tab 325 MG TAB PO SCH (20:01)
[2019-03-07] MEDS: Tamsulosin HCl 0.4 MG CAP PO SCH (20:01)
[2019-03-07] MEDS: cefTRIAXone\\ROCEPHIN 1 GM in Sodium Chloride 0.9% 100 ML IVPB SCH (20:01)
[2019-03-07] MEDS: ALPRAZolam 1 MG TAB PO SCH (20:01)
--- NOTE | 2019-03-07 20:27 | PDOC.HOSPP ---
- Subjective Encounter Date: 03/07/19 Encounter Time: 10:23 Subjective: 63 y/o obese female with DM complicated with nephropathy and neuropathy, CAD and others admitted with recurrent falls associated with trauma to face. Was just discharged after hospitalization for UTI amongst others. Patient was on antihypertensives as well as diuretics and was found also to have PATRICA. Feeling better but gait is still unstable. Denied nausea and vomiting. Reported bed bug infestation in her home. - Objective Vital Signs & Weight: Vital Signs (12 hours) Temp Pulse Resp BP BP Pulse Ox 03/07/19 19:06 97.9 F 72 20 150/82 H 97 03/07/19 16:00 98.5 F 74 17 177/71 H 98 03/07/19 11:00 98 F 83 17 153/66 H 97 Weight Weight 203 lb 8 oz I&O: 03/06/19 03/07/19 03/08/19 06:59 06:59 06:59 Intake Total 800 1100 Output Total 500 Balance 300 1100 Result Diagrams: 03/07/19 06:04 03/07/19 06:04 Additional Labs: Accuchecks 03/07/19 03/07/19 03/07/19 19:14 16:19 11:32 POC Glucose 127 H 94 202 H 03/07/19 03/06/19 04:13 19:26 POC Glucose 93 119 H Hospitalist ROS - Medication Medications: Active Medications Generic Name Dose Route Start Last Admin Trade Name Freq PRN Reason Stop Dose Admin Acetaminophen 650 mg 03/06/19 01:57 03/07/19 12:37 Tylenol PO 650 mg Q4H PRN Administration Headache/Fever/Mild Pain (1-3) Alprazolam 1 mg 03/07/19 21:00 03/07/19 20:01 Xanax PO 1 mg TID CECILIA Administration Aspirin 81 mg 03/06/19 09:00 03/07/19 09:38 Aspirin Chewable PO 81 mg DAILY CECILIA Administration Atorvastatin Calcium 40 mg 03/06/19 09:00 03/07/19 09:38 Lipitor PO 40 mg DAILY CECILIA Administration Escitalopram Oxalate 20 mg 03/06/19 09:00 03/07/19 09:38 Lexapro PO 20 mg DAILY CECILIA Administration Famotidine 20 mg 03/06/19 09:00 03/07/19 09:38 Pepcid PO 20 mg DAILY CECILIA Administration Glipizide 10 mg 03/06/19 07:30 03/07/19 16:39 Glucotrol PO 10 mg BID-AC CECILIA Administration Ceftriaxone Sodium 1 gm/ 100 mls @ 200 mls/hr 03/06/19 20:00 03/07/19 20:01 Sodium Chloride IVPB 100 mls Q24HR CECILIA Administration Insulin Glargine 30 units/ 0.3 mls @ 0 mls/hr 03/06/19 21:00 03/07/19 19:33 Miscellaneous Medication SC Not Given HS CECILIA Sodium Chloride 1,000 mls @ 50 mls/hr 03/07/19 11:45 03/07/19 12:37 Normal Saline 0.9% IV 1,000 mls .Q20H CECILIA Administration Insulin Human Lispro 0 units 03/06/19 01:57 03/07/19 12:36 Humalog SC 4 unit .MODERATE SLIDING SC PRN Administration Moderate Correctional Scale Levothyroxine Sodium 50 mcg 03/06/19 06:00 03/07/19 04:59 Synthroid PO 50 mcg 0600 CECILIA Administration Polyethylene Glycol 17 gm 03/06/19 09:00 03/07/19 09:32 Miralax PO Not Given DAILY CECILIA Pregabalin 100 mg 03/06/19 09:00 03/07/19 20:02 Lyrica PO 100 mg BID CECILIA Administration Senna/Docusate Sodium 2 tab 03/06/19 09:00 03/07/19 19:15 Senokot S PO Not Given BID CECILIA Sodium Bicarbonate 325 mg 03/07/19 21:00 03/07/19 20:01 Bicarbonate, Sodium PO 325 mg BID CECILIA Administration Tamsulosin HCl 0.4 mg 03/06/19 21:00 03/07/19 20:01 Flomax PO 0.4 mg HS CECILIA Administration Ticagrelor 90 mg 03/06/19 09:00 03/07/19 20:01 Brilinta PO 90 mg BID CECILIA Administration - Exam General Appearance: awake alert Eye: anicteric sclera ENT: normocephalic atraumatic Neck: supple Heart: RRR Respiratory: no wheezes, no rales, no ronchi, normal chest expansion, no tachypnea Gastrointestinal: soft, non-tender, non-distended, normal bowel sounds Gastrointestinal - other findings: obese Neurological: CN's grossly intact, no focal deficits Neurological - other findings: gait instability Psychiatric: normal affect, A&O x 3 Hosp A/P (1) PATRIAC (acute kidney injury) Code(s): N17.9 - ACUTE KIDNEY FAILURE, UNSPECIFIED Status: Acute (2) Orthostatic syncope Code(s): I95.1 - ORTHOSTATIC HYPOTENSION Status: Acute (3) Chronic kidney disease, stage 3 Code(s): N18.3 - CHRONIC KIDNEY DISEASE, STAGE 3 (MODERATE) Status: Acute (4) Urinary retention Code(s): R33.9 - RETENTION OF URINE, UNSPECIFIED Status: Acute (5) Ischemic cardiomyopathy Code(s): I25.5 - ISCHEMIC CARDIOMYOPATHY Status: Acute (6) Mitral regurgitation Status: Acute (7) Pulmonary HTN Code(s): I27.20 - PULMONARY HYPERTENSION, UNSPECIFIED Status: Acute (8) COPD (chronic obstructive pulmonary disease) Status: Acute (9) Orthostatic hypotension Code(s): I95.1 - ORTHOSTATIC HYPOTENSION Status: Acute (10) UTI (urinary tract infection) Status: Acute (11) CAD (coronary artery disease) Code(s): I25.10 - ATHSCL HEART DISEASE OF [place] CORONARY ARTERY W/O ANG PCTRS Status: Chronic Qualifiers: Coronary Disease-Associated Artery/Lesion type: [place] artery [place] vs. transplanted heart: [place] heart Associated angina: without angina Qualified Code(s): I25.10 - Atherosclerotic heart disease of [place] coronary artery without angina pectoris (12) Chronic stage c diastolic heart failure Code(s): I50.32 - CHRONIC DIASTOLIC (CONGESTIVE) HEART FAILURE Status: Chronic (13) DM type 2 (diabetes mellitus, type 2) Status: Chronic Qualifiers: Diabetes mellitus exterminator termite insulin use: with exterminator termite use (14) HTN (hypertension) Code(s): I10 - ESSENTIAL (PRIMARY) HYPERTENSION Status: Chronic Qualifiers: Hypertension type: essential hypertension Qualified Code(s): I10 - Essential (primary) hypertension (15) Gait instability Code(s): R26.81 - UNSTEADINESS ON FEET Status: Acute - Plan Continue NS therapy No diuretic and antihypertensives still Monitor volume status, renal function and electrolytes. Continue antibiotic. Await urine culture microbe ID and susceptibility Monitor orthostatic vitals. PT/OT Continue other treatments
[2019-03-08] MEDS: Levothyroxine Sodium 50 MCG TAB PO SCH (05:08)
[2019-03-08 06:23] LABS: Albumin 3.5 g/dL (3.4-4.8); Anion Gap 13 mmol/L (10-20); BUN (Urea Nitrogen) 34 mg/dL (9.8-20.1); BUN/Creatinine Ratio 16.75; Calc. Creatinine Clearance 42 mL/min (70-130); Calcium 9.2 mg/dL (7.8-10.44); Carbon Dioxide 26 mmol/L (23-31); Chloride 106 mmol/L (98-107); Estimated GFR-MDRD 25; Glucose 122 mg/dL (80-115); Phosphorus 4.3 mg/dL (2.3-4.7); Sodium 141 mmol/L (136-145)
[2019-03-08] MEDS: Sodium Bicarbonate Tab 325 MG TAB PO SCH ×2 (08:48→20:23)
[2019-03-08] MEDS: Atorvastatin Calcium 40 MG TAB PO SCH (08:48)
[2019-03-08] MEDS: TICAGRELOR 90 MG TABLET PO SCH ×2 (08:48→20:23)
[2019-03-08] MEDS: glipiZIDE 10 MG TAB PO SCH ×2 (08:48→16:44)
[2019-03-08] MEDS: Senokot S 8.6-50 MG TAB PO SCH ×2 (08:48→19:03)
[2019-03-08] MEDS: Pregabalin 50 MG CAP PO SCH ×2 (08:49→20:23)
[2019-03-08] MEDS: Escitalopram Oxalate 20 mg Tablet PO SCH ×2 (08:50→08:54)
[2019-03-08] MEDS: Famotidine 20 MG TAB PO SCH (08:51)
[2019-03-08] MEDS: Polyethylene Glycol 3350 17 GM Packet PO SCH (08:52)
[2019-03-08] MEDS: Enoxaparin Sodium 40 MG/0.4 ML SYRINGE SC SCH (08:52)
[2019-03-08] MEDS: ALPRAZolam 1 MG TAB PO SCH ×3 (08:53→20:23)
[2019-03-08] MEDS: Aspirin Chewable 81 MG TAB PO SCH (08:53)
--- NOTE | 2019-03-08 12:47 | PDOC.HOSPP ---
- Subjective Encounter Date: 03/08/19 Encounter Time: 12:46 Subjective: 63 y/o obese female with DM complicated with nephropathy and neuropathy, CAD and others admitted with recurrent falls associated with trauma to face. Was just discharged after hospitalization for UTI amongst others. Patient was on antihypertensives as well as diuretics and was found also to have PATRICA. Feeling better but orthostatic significantly with gait instability. Denied nausea and vomiting. - Objective Vital Signs & Weight: Vital Signs (12 hours) Temp Pulse Resp BP Pulse Ox 03/08/19 07:34 97.8 F 74 17 111/69 95 Weight Weight 203 lb 8 oz I&O: 03/07/19 03/08/19 03/09/19 06:59 06:59 06:59 Intake Total 1100 Balance 1100 Result Diagrams: 03/07/19 06:04 03/08/19 05:34 Additional Labs: Accuchecks 03/08/19 03/07/19 03/07/19 11:43 19:14 16:19 POC Glucose 265 H 127 H 94 Hospitalist ROS - Medication Medications: Active Medications Generic Name Dose Route Start Last Admin Trade Name Freq PRN Reason Stop Dose Admin Acetaminophen 650 mg 03/06/19 01:57 03/07/19 12:37 Tylenol PO 650 mg Q4H PRN Administration Headache/Fever/Mild Pain (1-3) Alprazolam 1 mg 03/07/19 21:00 03/08/19 08:53 Xanax PO 1 mg TID CECILIA Administration Aspirin 81 mg 03/06/19 09:00 03/08/19 08:53 Aspirin Chewable PO 81 mg DAILY CECILIA Administration Atorvastatin Calcium 40 mg 03/06/19 09:00 03/08/19 08:48 Lipitor PO 40 mg DAILY CECILIA Administration Enoxaparin Sodium 40 mg 03/08/19 09:00 03/08/19 08:52 Lovenox SC 40 mg 0900 CECILIA Administration Escitalopram Oxalate 20 mg 03/06/19 09:00 03/08/19 08:54 Lexapro PO 20 mg DAILY CECILIA Administration Famotidine 20 mg 03/06/19 09:00 03/08/19 08:51 Pepcid PO 20 mg DAILY CECILIA Administration Glipizide 10 mg 03/06/19 07:30 03/08/19 08:48 Glucotrol PO 10 mg BID-AC CECILIA Administration Insulin Glargine 30 units/ 0.3 mls @ 0 mls/hr 03/06/19 21:00 03/07/19 19:33 Miscellaneous Medication SC Not Given HS COUNTS INCLUDE 234 BEDS AT THE [facility] Insulin Human Lispro 0 units 03/06/19 01:57 03/07/19 12:36 Humalog SC 4 unit .MODERATE SLIDING SC PRN Administration Moderate Correctional Scale Levothyroxine Sodium 50 mcg 03/06/19 06:00 03/08/19 05:08 Synthroid PO 50 mcg 0600 CECILIA Administration Polyethylene Glycol 17 gm 03/06/19 09:00 03/08/19 08:52 Miralax PO 17 gm DAILY CECILIA Administration Pregabalin 100 mg 03/06/19 09:00 03/08/19 08:49 Lyrica PO 100 mg BID CECILIA Administration Senna/Docusate Sodium 2 tab 03/06/19 09:00 03/08/19 08:48 Senokot S PO 2 tab BID CECILIA Administration Sodium Bicarbonate 325 mg 03/07/19 21:00 03/08/19 08:48 Bicarbonate, Sodium PO 325 mg BID CECILIA Administration Tamsulosin HCl 0.4 mg 03/06/19 21:00 03/07/19 20:01 Flomax PO 0.4 mg HS CECILIA Administration Ticagrelor 90 mg 03/06/19 09:00 03/08/19 08:48 Brilinta PO 90 mg BID CECILIA Administration - Exam General Appearance: awake alert General - other findings: obese Eye: anicteric sclera ENT: normocephalic atraumatic, moist mucosa Neck: supple, symmetric, no JVD Heart: RRR, no murmur Respiratory: no wheezes, no rales, no ronchi, normal chest expansion, no tachypnea Gastrointestinal: soft, non-tender, non-distended, normal bowel sounds Extremities: no cyanosis, no edema Neurological: CN's grossly intact, no focal deficits Neurological - other findings: gait instability noted Psychiatric: A&O x 3 Hosp A/P (1) PATRICA (acute kidney injury) Code(s): N17.9 - ACUTE KIDNEY FAILURE, UNSPECIFIED Status: Acute (2) Orthostatic syncope Code(s): I95.1 - ORTHOSTATIC HYPOTENSION Status: Acute (3) Chronic kidney disease, stage 3 Code(s): N18.3 - CHRONIC KIDNEY DISEASE, STAGE 3 (MODERATE) Status: Acute (4) Urinary retention Code(s): R33.9 - RETENTION OF URINE, UNSPECIFIED Status: Acute (5) Ischemic cardiomyopathy Code(s): I25.5 - ISCHEMIC CARDIOMYOPATHY Status: Acute (6) Mitral regurgitation Status: Acute (7) Pulmonary HTN Code(s): I27.20 - PULMONARY HYPERTENSION, UNSPECIFIED Status: Acute (8) COPD (chronic obstructive pulmonary disease) Status: Acute (9) Orthostatic hypotension Code(s): I95.1 - ORTHOSTATIC HYPOTENSION Status: Acute (10) UTI (urinary tract infection) Status: Acute (11) CAD (coronary artery disease) Code(s): I25.10 - ATHSCL HEART DISEASE OF [place] CORONARY ARTERY W/O ANG PCTRS Status: Chronic Qualifiers: Coronary Disease-Associated Artery/Lesion type: [place] artery [place] vs. transplanted heart: [place] heart Associated angina: without angina Qualified Code(s): I25.10 - Atherosclerotic heart disease of [place] coronary artery without angina pectoris (12) Chronic stage c diastolic heart failure Code(s): I50.32 - CHRONIC DIASTOLIC (CONGESTIVE) HEART FAILURE Status: Chronic (13) DM type 2 (diabetes mellitus, type 2) Status: Chronic Qualifiers: Diabetes mellitus director long term care insulin use: with intermediate use (14) HTN (hypertension) Code(s): I10 - ESSENTIAL (PRIMARY) HYPERTENSION Status: Chronic Qualifiers: Hypertension type: essential hypertension Qualified Code(s): I10 - Essential (primary) hypertension (15) Gait instability Code(s): R26.81 - UNSTEADINESS ON FEET Status: Acute - Plan Continue NS therapy. Increase rate to 125 as creat went up with decrease. still looks dry clinically No diuretic and antihypertensives still Monitor volume status, renal function and electrolytes. DC Rocephin and start levaquin in line with microbe susceptibility test. Monitor orthostatic vitals. PT/OT
[2019-03-08] MEDS: HumaLOG 300 UNITS/3 ML VIAL SC PRN (12:50)
[2019-03-08] MEDS: Sodium Chloride 0.9% 1,000 ML IV SCH ×2 (12:51→20:24)
[2019-03-08] MEDS: Insulin Glargine 30 UNITS in Pre-Filled Syringe 1 EACH SC SCH (20:17)
[2019-03-08] MEDS: Tamsulosin HCl 0.4 MG CAP PO SCH (20:23)
[2019-03-09] MEDS: Sodium Chloride 0.9% 1,000 ML IV SCH (03:15)
[2019-03-09] MEDS: Levothyroxine Sodium 50 MCG TAB PO SCH (05:44)
[2019-03-09 07:45] LABS: Albumin 3.2 g/dL (3.4-4.8); Anion Gap 12 mmol/L (10-20); BUN (Urea Nitrogen) 32 mg/dL (9.8-20.1); BUN/Creatinine Ratio 17.88; Calc. Creatinine Clearance 48 mL/min (70-130); Calcium 8.9 mg/dL (7.8-10.44); Carbon Dioxide 25 mmol/L (23-31); Chloride 107 mmol/L (98-107); Estimated GFR-MDRD 29; Glucose 120 mg/dL (80-115); Phosphorus 3.9 mg/dL (2.3-4.7); Potassium 4.3 mmol/L (3.5-5.1); Sodium 140 mmol/L (136-145)
[2019-03-09] MEDS: TICAGRELOR 90 MG TABLET PO SCH (09:04)
[2019-03-09] MEDS: Aspirin Chewable 81 MG TAB PO SCH (09:05)
[2019-03-09] MEDS: Atorvastatin Calcium 40 MG TAB PO SCH (09:05)
[2019-03-09] MEDS: Escitalopram Oxalate 20 mg Tablet PO SCH (09:05)
[2019-03-09] MEDS: glipiZIDE 10 MG TAB PO SCH (09:05)
[2019-03-09] MEDS: Sodium Bicarbonate Tab 325 MG TAB PO SCH (09:05)
[2019-03-09] MEDS: Pregabalin 50 MG CAP PO SCH (09:05)
[2019-03-09] MEDS: Senokot S 8.6-50 MG TAB PO SCH (09:07)
[2019-03-09] MEDS: ALPRAZolam 1 MG TAB PO SCH (09:07)
[2019-03-09] MEDS: Polyethylene Glycol 3350 17 GM Packet PO SCH (09:08)
[2019-03-09] MEDS: Enoxaparin Sodium 40 MG/0.4 ML SYRINGE SC SCH (09:08)
[2019-03-09] MEDS: Famotidine 20 MG TAB PO SCH (09:08)
--- NOTE | 2019-03-09 09:37 | PDOC.EVN ---
Event Note - Event Note Event Note: . Dicharge summary dictated. #[id number]
--- NOTE | 2019-03-09 10:05 | DIS ---
DATE OF ADMISSION: 03/05/2019 DATE OF DISCHARGE: 03/09/2019 PRIMARY CARE PHYSICIAN: Cain Diaz MD. DISCHARGE DIAGNOSES: 1. Acute kidney injury. 2. Orthostatic syncope. 3. Orthostatic hypotension. 4. 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 5. Urinary retention. 6. Ischemic cardiomyopathy. 7. Mitral regurgitation. 8. Pulmonary hypertension. 9. Citrobacter urinary tract infection. 10. Chronic obstructive pulmonary disease. 11. Chronic stage C diastolic heart failure. 12. Type 2 diabetes mellitus. 13. Hypertension. 14. Gait instability. 15. Trauma to face. 16. Hypothyroidism. HOSPITAL COURSE: A 63-year-old obese female with known history of diabetes complicated with nephropathy and neuropathy, coronary artery disease and others, admitted with recurrent falls after associated with traumatized. The patient who was just discharged from the hospital after hospitalization for UTI amongst others, was found to have severe orthostatic hypotension as well as acute kidney injury and dehydration. The patient on recent discharge was started on antihypertensives as well as diuretics. She was treated with IV fluid while diuretic and antihypertensives were held. The patient also was started on IV fluid therapy. PT and OT saw the patient for gait instability and gait improved with physical therapy. Creatinine improved from 2.5 on admission to 1.79 on discharge. The patient, however, continued to have significant orthostatic hypotension with blood pressure dropping from 170 on sitting to 119 on standing. It was felt that due to referred as standing blood pressure is low and within normal limits, the patient does not need antihypertensives or diuretic at this time. She remained stable and was ambulating and was subsequently discharged home. The patient was felt to be in need of home therapy and that was ordered, however, due to the patient's insurance case management was still working on it and request was sent to the patient's insurance and response has been awaited at the time of discharge. The patient also was found to have some degree of urinary retention. She complained of feeling of incomplete voiding and postvoid residual was ranging between 113 to 400. The patient was started on Flomax for incomplete voiding with good interval improvement such that she is voiding completely. The patient also was started on antibiotics for urinary tract infection. Urine culture grew Citrobacter, which was resistant to initially started antibiotics Rocephin and that was changed over to levofloxacin. PHYSICAL EXAMINATION: VITAL SIGNS: Blood pressure 167/73 on sitting and 119/72 on standing. Pulse is 76, respiratory rate is 20, SpO2 is 95 on room air, temperature is 98.0. GENERAL: Obese female, in no obvious distress. Afebrile. Anicteric. Acyanotic. HEENT: Left sided periorbital swelling has regressed significantly. Oral mucosa is moist. CARDIOVASCULAR: Regular rhythm and rate with normal heart sounds one and two. RESPIRATORY: Good air entry bilaterally with no crackle or rhonchi or use of accessory muscles. GI: Obese, soft, nontender, nondistended with normal bowel sounds. EXTREMITIES: Grossly normal looking atraumatic with no edema or erythema. Distal pulses are palpable. BOILERMAKER ASSEMBLY AND ERECTION: Conscious, alert and oriented x3 with appropriate mental status. Cranial nerves 2 through 12 are grossly intact. The patient moves all extremities. The patient is ambulant. DISCHARGE CONDITION: Improved. DISCHARGE DISPOSITION: Home with Home Health. DISCHARGE MEDICATIONS: See discharge med rec. Of note, lisinopril and Lasix were discontinued while the patient was started on Flomax and levofloxacin for two more doses. TIME SPENT: This discharge took more than 38 minutes. Job ID: [id number]
[2019-03-09 12:16] VITALS: BP 167/70; TEMP 97.8
== END 2019-03-09 13:10 | disposition home health service (06) | DRG 683 ==
LOC: ERS 18:01 → T4-A 20:51 → OBSVTOIN 20:51
PROVIDERS: ADMIT Internal Medicine; ATTEND Internal Medicine
DX: N17.9 Acute kidney failure, unspecified (principal); I13.0 Hypertensive heart and chronic kidney disease with heart failure and stage 1 through stage 4 chronic kidney disease, or unspecified chronic kidney disease; I50.32 Chronic diastolic (congestive) heart failure; N39.0 Urinary tract infection, site not specified; I95.1 Orthostatic hypotension; R29.6 Repeated falls; E78.5 Hyperlipidemia, unspecified; E78.00 Pure hypercholesterolemia, unspecified; J44.9 Chronic obstructive pulmonary disease, unspecified; E03.9 Hypothyroidism, unspecified; M79.7 Fibromyalgia; G43.909 Migraine, unspecified, not intractable, without status migrainosus; F41.9 Anxiety disorder, unspecified; F32.9 Major depressive disorder, single episode, unspecified; E86.0 Dehydration; W18.30XA Fall on same level, unspecified, initial encounter; E11.22 Type 2 diabetes mellitus with diabetic chronic kidney disease; N18.3 Chronic kidney disease, stage 3 (moderate); E11.42 Type 2 diabetes mellitus with diabetic polyneuropathy; I25.10 Atherosclerotic heart disease of native coronary artery without angina pectoris; K59.00 Constipation, unspecified; R33.9 Retention of urine, unspecified; I25.5 Ischemic cardiomyopathy; I27.20 Pulmonary hypertension, unspecified; I34.0 Nonrheumatic mitral (valve) insufficiency; E11.21 Type 2 diabetes mellitus with diabetic nephropathy; B96.89 Other specified bacterial agents as the cause of diseases classified elsewhere; S09.93XA Unspecified injury of face, initial encounter; E66.9 Obesity, unspecified; Z91.040 Latex allergy status; Z88.5 Allergy status to narcotic agent; I25.2 Old myocardial infarction; Z90.710 Acquired absence of both cervix and uterus; Z79.899 Other long term (current) drug therapy; Z79.4 Long term (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 of insulin; Z68.30 Body mass index [BMI] 30.0-30.9, adult; Z79.51 Long term (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 of inhaled steroids; G89.29 Other chronic pain; Z95.5 Presence of coronary angioplasty implant and graft
CPT/HCPCS: 36415; 36416; 51701; 70450; 71045; 80048; 80053; 80069; 81003; 81015; 83880; 84484; 85025; 87077; 87086; 87186; 93005; 93010; 96361; 96365; A4353; J0696; J1650; J1815; J3490

== ENCOUNTER 2019-03-16 19:11 | Inpatient (IN) | payer OTHER ==
--- NOTE | 2019-03-16 19:39 | RAD ---
EXAM: Single view of the chest HISTORY: Chest pain COMPARISON: 03/05/2019 FINDINGS: Single view of the chest shows a normal sized cardiomediastinal silhouette. There is no kingsley dence of consolidation, mass, or pleural effusion. The bones are unremarkable. IMPRESSION: No evidence of acute cardiopulmonary disease
[2019-03-16 19:57] LABS: #Eosinphils 0.2 thou/uL (0.0-0.7); #Lymphocytes 1.3 thou/uL (1.20-3.40); #Monocytes 0.6 thou/uL (0.11-0.59); #Neutrophils 7.6 thou/uL (1.40-6.50); %Basophils 0.4 % (0.0-1.0); %Eosinophils 2.5 % (0.0-10.0); %Lymphocytes 13.5 % (21.0-51.0); %Monocytes 6.1 % (0.0-10.0); %Neutrophils 77.4 % (42.0-75.0); Hemoglobin 8.8 g/dL (12.0-16.0); Mean Corpuscular HGB CONC 32.6 g/dL (32.0-36.0); Mean Corpuscular Hemoglobin 27.2 pg (27.0-31.0); Mean Corpuscular Volume 83.5 fL (78.0-98.0); Mean Platelet Volume 8.6 fL (7.4-10.4); Platelet Count 222 thou/uL (130-400); Red Blood Cell (RBC) Count 3.25 mill/uL (4.20-5.40); White Blood Cell (WBC) Count 9.8 thou/uL (4.8-10.8)
[2019-03-16 20:17] LABS: ALT (SGPT) 8 U/L (8-55); AST (SGOT) 7 U/L (5-34); Albumin 3.5 g/dL (3.4-4.8); Alkaline Phosphatase 119 U/L (40-150); Anion Gap 13 mmol/L (10-20); BUN (Urea Nitrogen) 38 mg/dL (9.8-20.1); Bilirubin, Total 0.3 mg/dL (0.2-1.2); CK (CPK) 32 U/L (29-168); Calc. Creatinine Clearance 0 mL/min (70-130); Calcium 9.2 mg/dL (7.8-10.44); Carbon Dioxide 26 mmol/L (23-31); Chloride 109 mmol/L (98-107); Estimated GFR-MDRD 32; Globulin 2.7 g/dL (2.4-3.5); Glucose 201 mg/dL (80-115); Potassium 3.6 mmol/L (3.5-5.1); Protein, Total 6.2 g/dL (6.0-8.3); Sodium 144 mmol/L (136-145)
[2019-03-16 20:39] LABS: CKMB 0.6 ng/mL (0-6.6)
[2019-03-16] MEDS ORDERED: Acetaminophen 500 MG TAB ONE (22:05)
[2019-03-16 23:17] VITALS: BMI 32.4
[2019-03-16 23:33] LABS: Troponin I 0.061 ng/mL (< 0.028)
[2019-03-17] MEDS ORDERED: Non-Formulary Item 1 EACH (Insulin Glargine,Hum.Rec.Anlog [Lantus Solostar] 30 UNIT) SQ PRN (01:32)
[2019-03-17 02:18] LABS: Lactic Acid 1.2 mmol/L (0.5-2.2)
[2019-03-17 02:21] LABS: Magnesium 1.8 mg/dL (1.6-2.6)
[2019-03-17] MEDS ORDERED: Senokot S 8.6-50 MG TAB PO PRN (02:41)
[2019-03-17 04:50] LABS: Bilirubin Negative (Negative); Blood, Urine Negative (Negative); Clarity Clear (Clear); Glucose, Urine (Dipstick) Normal (Negative); Leukocyte 25 Leu/uL (Negative); Nitrite Negative (Negative); Protein, Urine (Dipstick) 30 mg/dL (Neg-Trace); RBC/HPF 0-3 HPF (0-3); Squamous Epithelial None Seen HPF (0-3); Urobilinogen Normal mg/dL (Less than 2)
[2019-03-17 04:51] LABS: Bacteria/HPF 1+ HPF (None Seen)
[2019-03-17 05:10] LABS: #Eosinphils 0.4 thou/uL (0.0-0.7); #Lymphocytes 1.5 thou/uL (1.20-3.40); #Monocytes 0.5 thou/uL (0.11-0.59); #Neutrophils 6.8 thou/uL (1.40-6.50); %Basophils 0.3 % (0.0-1.0); %Eosinophils 4.1 % (0.0-10.0); %Lymphocytes 16.4 % (21.0-51.0); %Monocytes 5.3 % (0.0-10.0); %Neutrophils 73.9 % (42.0-75.0); Hemoglobin 8.9 g/dL (12.0-16.0); Mean Corpuscular HGB CONC 32.6 g/dL (32.0-36.0); Mean Platelet Volume 8.6 fL (7.4-10.4); Platelet Count 223 thou/uL (130-400); RBC Distribution Width 13.8 % (11.5-14.5); Red Blood Cell (RBC) Count 3.28 mill/uL (4.20-5.40); White Blood Cell (WBC) Count 9.1 thou/uL (4.8-10.8)
[2019-03-17 05:28] LABS: Anion Gap 14 mmol/L (10-20); BUN (Urea Nitrogen) 38 mg/dL (9.8-20.1); Calc. Creatinine Clearance 50 mL/min (70-130); Calcium 9.4 mg/dL (7.8-10.44); Carbon Dioxide 26 mmol/L (23-31); Chloride 107 mmol/L (98-107); Estimated GFR-MDRD 29; Glucose 232 mg/dL (80-115); Iron Binding Capacity, Total 225 mcg/dL (265-497); Potassium 3.6 mmol/L (3.5-5.1); Sodium 143 mmol/L (136-145)
[2019-03-17] MEDS ORDERED: Diltiazem HCl 125 MG, Admixture Fee 1 EACH in Sodium Chloride 0.9% 100 ML IVPB SCH (05:30)
[2019-03-17 05:50] LABS: CKMB 0.8 ng/mL (0-6.6)
--- NOTE | 2019-03-17 06:22 | HP ---
ADMISSION TIME: 2300 hours. PRIMARY CARE PHYSICIAN: Dr. Bella. CHIEF COMPLAINT: Chest pain. HISTORY OF PRESENT ILLNESS: Ms. Mendez is a 63-year-old woman presenting with chest pain. She reports experiencing pain earlier today in her back between her shoulder blades. She states it moves down her left arm and up into her neck. She states the pain was initially 8/10 in severity. She is not sure what time it started, but states she did take nitroglycerin without much improvement. She finally responded to nitroglycerin paste, which was placed in the Emergency Department. She reports that her pain then resolved, and she has had no recurring pain since then. She states she has been in her usual state of health in recent days. She denies having any recent fevers, chills, or sweats. She does have a cough, which is dry. Denies having any history of COPD or asthma, but does use inhalers and previously used nebulizer treatments at home. She states she is without complaints at this present time. She was recently admitted to the hospital for chest pain in January 2019. At that time, she underwent a CT angiogram of the chest, which showed urry-[id number] congestive heart failure with no central or segmental pulmonary embolus. There were hazy airspace opacities bilaterally, felt to be associated with edema. She had an echo done, which showed an EF of 45% to 50% with apical anterior and anterolateral hypokinesis. There was moderately dilated left atrium. Mild annular calcification present. Ixnx-hy-dleojqpd mitral regurgitation present. Aortic valve sclerosis, but it opened well. Cifc-mo-ffcnuiym aortic regurgitation noted. There was mild tricuspid regurgitation. Right ventricular systolic pressure measured at 48 mmHg. Mild pulmonic regurgitation and a small pericardial effusion without tamponade. She was seen by Cardiology and was taken for catheterization by Dr. Peter. She was noted to have an occluded D2, severe mild LAD, status post a stent in the mid LAD. There was moderate proximal LAD disease, severe proximal RCA disease, per recommendations a residual RCA disease was to be intervened at a later date. Contrast was not able to be given due to her underlying chronic kidney disease. In the Emergency Department, she underwent an EKG showing normal sinus rhythm with a heart rate of 93. There was a complete left bundle-branch block with normal ST-segments and T-wave abnormalities. Per ED physician, EKG appeared similar to those done recently. Laboratory studies were done including a troponin which was elevated at 0.050. BNP was elevated at 1260.8. CK normal. She had a normal white blood count. Her hemoglobin was low at 8.8, but appeared stable compared to prior laboratory studies. A chest x-ray was done showing no evidence of acute cardiopulmonary disease. PAST MEDICAL HISTORY: 1. Previous OR. 2. Coronary artery disease. 3. Type 2 diabetes mellitus. 4. Hypothyroidism. 5. Hyperlipidemia. 6. COPD. 7. Hypertension. 8. Bradycardia. 9. Fibromyalgia. 10. Migraines. 11. Anxiety. 12. Depression. PAST SURGICAL HISTORY: 1. Cardiac stent x1. 2. Hysterectomy. 3. Orthopedic surgery to right leg. 4. Hysterectomy. 5. Cyst removed from axilla and left shoulder. SOCIAL HISTORY: The patient lives with her family. Denies any alcohol consumption, illicit drug use, or tobacco use. ALLERGIES: 1. DEMEROL. 2. LATEX GLOVES. 3. MEPERIDINE. 4. MORPHINE. CURRENT MEDICATIONS: 1. Aspirin. 2. Atorvastatin. 3. Tizanidine. 4. Escitalopram. 5. Lyrica. 6. Levothyroxine. 7. Lantus. 8. NovoLog. 9. Plavix. 10. Tamsulosin. 11. Brilinta. 12. Furosemide. PHYSICAL EXAMINATION: GENERAL: The patient appears well-developed, well-nourished, is in no acute distress. VITAL SIGNS: Temperature 97.6, pulse 81, respirations 16, O2 saturation 94% on room air, and blood pressure 158/70. HEENT: Normocephalic and atraumatic. Pupils are equal, round, and reactive to light. Sclerae icterus. Oropharynx is clear. NECK: Supple. No lymphadenopathy. LUNGS: Notable for expiratory wheezing bilaterally. No crackles. CARDIAC: Regular rate and rhythm. No chest wall tenderness to palpation. ABDOMEN: Soft, nontender, nondistended. Normoactive bowel sounds present. EXTREMITIES: No lower leg swelling or edema. NEUROLOGIC: Alert and oriented x3. SKIN: Without rash or jaundice. LABORATORY DATA: White blood count 9.8, hemoglobin 8.8, stable, hematocrit 27.1, and platelets 222. Sodium 144, potassium 3.6, chloride 109, BUN 38, creatinine 1.65, GFR 32, glucose 201, calcium 9.2, total bilirubin 0.3, AST 7, ALT 8, and alkaline phosphatase 119. CK 32, CK-MB 0.6, troponin 0.050, 0.061, total protein 6.2, albumin 3.5, and globulin 2.7. IMAGING DATA: As mentioned above in HPI. IMPRESSION AND PLAN: Ms. Mendez is a 63-year-old woman, who has been referred for management of the following. 1. Acute coronary syndrome rule out. The patient with known hypertension, hyperlipidemia, diabetes, and coronary artery disease, who recently underwent a cardiac stent in January. She was unable to have additional stents done due to contrast and underlying chronic kidney disease. The patient now presented with recurring pain. We will continue to trend troponins. We will place a consultation to Dr. Peter. BNP elevated at 1260.8, however, no evidence of congestive heart failure exacerbation on the chest x-ray. We will add D-dimer. We will also add lactic acid given the recent cough she has had, though it is chronic. We will also add magnesium. She had a TSH checked in January, which is normal. We will add a lipase. 2. Hypertension. We will resume home medications once verified and monitor blood pressure. 3. Diabetes mellitus. We will resume home medications once verified. Insulin sliding scale initiated, and we will monitor blood glucose. 4. Gastrointestinal prophylaxis. 5. Deep venous thrombosis prophylaxis with mechanical SCDs. 6. Code status full. Her surrogate decision maker is her sister, Cecil Meek. The patient's case was discussed with Dr. Ying, who agrees with the plan of care as described above. Job ID: [id number]
[2019-03-17] MEDS: Levothyroxine Sodium 50 MCG TAB PO SCH (06:36)
[2019-03-17] MEDS: ALPRAZolam 1 MG TAB PO SCH ×3 (08:51→21:13)
[2019-03-17] MEDS: Aspirin Chewable 81 MG TAB PO SCH (08:51)
[2019-03-17] MEDS: Furosemide 40 MG TAB PO SCH (08:52)
[2019-03-17] MEDS: TICAGRELOR 90 MG TABLET PO SCH ×2 (08:52→21:05)
[2019-03-17] MEDS: Escitalopram Oxalate 20 mg Tablet PO SCH (08:52)
[2019-03-17] MEDS: Atorvastatin Calcium 40 MG TAB PO SCH (08:52)
[2019-03-17] MEDS: Famotidine/PF 20 mg/2ml Vial SLOW IVP SCH (08:52)
--- NOTE | 2019-03-17 10:16 | NM ---
EXAM: Nuclear medicine VQ scan COMPARISON: Chest x-ray 03/16/2019 HISTORY: Chest pain and elevated d-dimer TECHNIQUE: A VQ scan was performed in standard fashion. Ventilation images were obtained using 12.9 m Ci of xenon-133. Perfusion images were obtained using 5.8 mCi of technetium 99m MAA. FINDINGS: Ventilation: Breath hold, equilibrium, and washout phases are unremarkable. No ventilatory defects ar e seen. No air trapping is seen. Perfusion: No small, medium, or large perfusion defects are seen. IMPRESSION: Normal VQ scan
[2019-03-17] MEDS: Pregabalin 50 MG CAP PO SCH ×2 (10:21→21:14)
[2019-03-17] MEDS ORDERED: Enoxaparin Sodium 80 MG/0.8 ML SYRINGE SC SCH (10:30)
[2019-03-17] MEDS ORDERED: Enoxaparin Sodium 100 MG/ML SYRINGE SC SCH (12:00)
[2019-03-17] MEDS: HumaLOG 300 UNITS/3 ML VIAL SC SCH ×3 (13:16→17:59)
--- NOTE | 2019-03-17 15:17 | EKG ---
Test Reason : Blood Pressure : / mmHG Vent. Rate : 144 BPM Atrial Rate : 131 BPM P-R Int : 000 ms QRS Dur : 138 ms QT Int : 350 ms P-R-T Axes : 000 -37 101 degrees QTc Int : 541 ms Atrial fibrillation with rapid ventricular response Left axis deviation Non-specific intra-ventricular conduction block left bundle pattern Cannot rule out Septal infarct , age undetermined Abnormal ECG When compared with ECG of 06-MAR-2019 09:50, (Unconfirmed) Atrial fibrillation has replaced Sinus rhythm Vent. rate has increased BY 56 BPM QRS axis Shifted left Confirmed by DR. Sofia POLO (3) on 03/17/2019 3:17:47 PM Referred By: CHERYL Confirmed By:DR. Sofia POLO
--- NOTE | 2019-03-17 17:02 | CON ---
DATE OF CONSULTATION: 03/17/2019 REASON FOR CONSULTATION: Chest pain and atrial fibrillation. HISTORY OF PRESENT ILLNESS: Ms. Mendez is a very pleasant 63-year-old white female, who comes to the hospital for chest pain. She had an TX back in January. She underwent a heart catheterization, was found to have a subtotaled diagonal and thrombus in the mid LAD which was severely stenosed, so she underwent stenting to the mid LAD. Her diagonal could not be opened. She had very good results. She had residual proximal RCA disease, which we were planning on intervening on as an outpatient in the near future. She had complications after her stent. She had a pseudoaneurysm performed on the right femoral arteriotomy site which was treated with compression and with good results. She comes in for chest pain. She was seen in the ER and admitted for rule out. Her troponins have been in the indeterminate range so far, however, she developed rapid heart rate in the 140s. It look to be regular, at times it look-like flutter with 2:1 AV block. She was started on diltiazem drip and Cardiology has been consulted. On my evaluation, Ms. Mendez is chest pain free. She does not feel the palpitations, but she is going in and out of atrial flutter/atrial fibrillation. PAST MEDICAL HISTORY: 1. Coronary artery disease with recent stenting to her LAD. 2. Residual RCA disease. 3. Type 2 diabetes. 4. Hypothyroidism. 5. Hyperlipidemia. 6. COPD. 7. Hypertension. 8. Bradycardia. 9. Fibromyalgia. 10. Migraine headaches. 11. Anxiety and depression. PAST SURGICAL HISTORY: 1. Stenting as above. 2. Hysterectomy. 3. Right leg surgery. 4. Hysterectomy. 5. Axilla and left shoulder cyst removal. SOCIAL HISTORY: No alcohol, tobacco, or drugs. ALLERGIES: 1. DEMEROL. 2. LATEX. 3. MEPERIDINE. 4. MORPHINE. MEDICATIONS: Outpatient medications; 1. Lantus 60 units at bedtime. 2. NovoLog t.i.d. 3. Lasix 40 mg a day. 4. Aspirin 81 a day. 5. Xanax 1 mg p.o. t.i.d. 6. Lexapro 10 mg a day. 7. Atorvastatin 40 mg at bedtime. 8. Flonase. 9. Flomax. 10. Pregabalin. 11. Lyrica 100 mg b.i.d. 12. Levothyroxine 50 mcg a day. 13. Ticagrelor 90 mg b.i.d. 14. Tizanidine 4 mg a day. 15. Glipizide 10 mg b.i.d. REVIEW OF SYSTEMS: A 12-point review of systems was done and was all negative unless stated in the history of present illness. FAMILY HISTORY: Noncontributory. PHYSICAL EXAMINATION: VITAL SIGNS: Temperature 98.5, pulse 110, respiratory rate 20, sat 92% on 2 L, and blood pressure 129/60. GENERAL: Awake, alert, and oriented x3, in no distress. HEENT: Normocephalic and atraumatic. NECK: Supple. LUNGS: Clear. CARDIOVASCULAR: S1 and S2. No S3 or S4. No murmurs. ABDOMEN: Soft. Positive bowel sounds. EXTREMITIES: No edema. SKIN: Warm and dry. LABORATORY DATA: Laboratory work was reviewed. CBC with a white count of 9, hemoglobin of 8.8, hematocrit 27, platelet count 222. Coags; D-dimer was high at 0.93. Chemistries with a creatinine of 1.77, GFR of 29, glucose of 232. Iron binding capacity of 225, ferritin was normal. Troponin has been in the indeterminate range at 0.05, 0.06, 0.05, 0.04. Vitamin B12 and folate are normal. BNP was 1260. Telemetry was reviewed. V/Q scan was normal and low probability for pulmonary embolism. ASSESSMENT: 1. Chest pain. 2. Residual RCA coronary artery disease. 3. Recent LAD stent. 4. Atrial fibrillation/atrial flutter. PLAN: 1. We will plan on starting a full anticoagulation with Lovenox subcu daily, because of her GFR. We will agree with continuation of Lasix. 2. No acute coronary syndrome at this time. The original plan was to take her back for revascularization of RCA, but she continues to have runs of this atrial fibrillation/atrial flutter, I think it is more atrial flutter with 2:1 block. We will continue rate control for now. We will consult Electrophysiology to see how they would like to proceed. She may need an ablation. Thank you for letting me to participate in the care of your patient. We will follow. Job ID: [id number]
--- NOTE | 2019-03-17 17:16 | PDOC.HOSPP ---
- Subjective Encounter Date: 03/17/19 Encounter Time: 10:00 Subjective: pt up in bed was found to be in afib/flutter. she is on a drip and currently in sR. - Objective Vital Signs & Weight: Vital Signs (12 hours) Temp Pulse Resp BP Pulse Ox 03/17/19 15:34 98.5 F 110 H 20 129/60 93 L 03/17/19 14:25 87 18 90 L 03/17/19 11:42 98 F 99 20 130/60 93 L 03/17/19 11:20 94 16 92 L 03/17/19 08:43 93 L 03/17/19 07:30 98.3 F 97 18 119/57 L 96 03/17/19 07:13 93 L 03/17/19 07:10 93 16 93 L Weight Weight 207 lb 4.8 oz I&O: 03/16/19 03/17/19 03/18/19 06:59 06:59 06:59 Intake Total 180 Output Total 1252 Balance -1072 Result Diagrams: 03/17/19 04:59 03/17/19 04:59 Additional Labs: Accuchecks 03/17/19 03/17/19 10:51 00:27 POC Glucose 322 H 169 H Hospitalist ROS - Review of Systems Cardiovascular: denies: chest pain, palpitations, orthopnea, paroxysmal noc. dyspnea, edema, light headedness, other Gastrointestinal: denies: nausea, vomitting, abdominal pain, diarrhea, constipation, melena, hematochezia, other Genitourinary: denies: dysuria, frequency, incontinence, hematuria, retention, other - Medication Medications: Active Medications Generic Name Dose Route Start Last Admin Trade Name Freq PRN Reason Stop Dose Admin Albuterol/Ipratropium 3 ml 03/17/19 06:30 03/17/19 14:25 Duoneb NEB 3 ml [id number] CECILIA Administration Alprazolam 1 mg 03/17/19 09:00 03/17/19 08:51 Xanax PO 1 mg TID CECILIA Administration Aspirin 81 mg 03/17/19 09:00 03/17/19 08:51 Aspirin Chewable PO 81 mg DAILY CECILIA Administration Atorvastatin Calcium 40 mg 03/17/19 09:00 03/17/19 08:52 Lipitor PO 40 mg DAILY CECILIA Administration Escitalopram Oxalate 20 mg 03/17/19 09:00 03/17/19 08:52 Lexapro PO 20 mg DAILY CECILIA Administration Famotidine 20 mg 03/17/19 09:00 03/17/19 08:52 Pepcid SLOW IVP 20 mg DAILY CECILIA Administration Furosemide 40 mg 03/17/19 09:00 03/17/19 08:52 Lasix PO 40 mg DAILY CECILIA Administration Insulin Human Lispro 30 units 03/17/19 07:30 03/17/19 13:16 Humalog SC Not Given AC CECILIA Levothyroxine Sodium 50 mcg 03/17/19 06:00 03/17/19 06:36 Synthroid PO 50 mcg 0600 CECILIA Administration Pregabalin 100 mg 03/17/19 09:00 03/17/19 10:21 Lyrica PO 100 mg BID CECILIA Administration Ticagrelor 90 mg 03/17/19 09:00 03/17/19 08:52 Brilinta PO 90 mg BID CECILIA Administration - Exam Neck: negative: supple, symmetric, no JVD, no thyromegaly, no lymphadenopathy, no carotid bruit, JVD Heart: negative: RRR, no murmur, no gallops, no rubs, normal peripheral pulses, irregular, diminshed peripheral pulses, murmur present, II/IV, III/IV Respiratory: negative: CTAB, no wheezes, no rales, no ronchi, normal chest expansion, no tachypnea, normal percussion, rales, rhonchi, tachypneic, wheezes Hosp A/P (1) Atrial fibrillation with RVR Code(s): I48.91 - UNSPECIFIED ATRIAL FIBRILLATION Status: Acute (2) Chronic kidney disease, stage 3 Code(s): N18.3 - CHRONIC KIDNEY DISEASE, STAGE 3 (MODERATE) Status: Acute (3) CAD (coronary artery disease) Code(s): I25.10 - ATHSCL HEART DISEASE OF [place] CORONARY ARTERY W/O ANG PCTRS Status: Chronic Qualifiers: (4) DM type 2 (diabetes mellitus, type 2) Status: Chronic (5) HTN (hypertension) Code(s): I10 - ESSENTIAL (PRIMARY) HYPERTENSION Status: Chronic Qualifiers: (6) Morbid obesity with BMI of 40.0-44.9, adult Code(s): E66.01 - MORBID (SEVERE) OBESITY DUE TO EXCESS CALORIES; Z68.41 - BODY MASS INDEX (BMI) 40.0-44.9, ADULT Status: Chronic - Plan will start her on AC in addition to her brilinta and asa. cardiology consulted for her afib. she is on Cardizem drip. will continue her home medication.
[2019-03-17] MEDS: Enoxaparin Sodium 100 MG/ML SYRINGE SC SCH (21:04)
[2019-03-17] MEDS: Tamsulosin HCl 0.4 MG CAP PO SCH (21:05)
[2019-03-17] MEDS: tiZANidine HCl 4 MG TAB PO SCH (21:05)
[2019-03-17] MEDS: Insulin Glargine 60 UNITS in Pre-Filled Syringe 1 EACH SC SCH (21:14)
[2019-03-17] MEDS: Diltiazem HCl 125 MG, Admixture Fee 1 EACH in Sodium Chloride 0.9% 100 ML IVPB SCH (21:53)
[2019-03-18] MEDS: Levothyroxine Sodium 50 MCG TAB PO SCH (05:17)
[2019-03-18] MEDS ORDERED: Insulin Glargine 25 UNITS in Pre-Filled Syringe 1 EACH SC SCH (08:58)
[2019-03-18] MEDS: Diltiazem HCl 125 MG, Admixture Fee 1 EACH in Sodium Chloride 0.9% 100 ML IVPB SCH ×2 (09:05→21:46)
[2019-03-18] MEDS: Atorvastatin Calcium 40 MG TAB PO SCH (09:06)
[2019-03-18] MEDS: ALPRAZolam 1 MG TAB PO SCH ×2 (09:06→14:07)
[2019-03-18] MEDS: Furosemide 40 MG TAB PO SCH (09:06)
[2019-03-18] MEDS: Escitalopram Oxalate 20 mg Tablet PO SCH (09:06)
[2019-03-18] MEDS: Aspirin Chewable 81 MG TAB PO SCH (09:06)
[2019-03-18] MEDS: Famotidine/PF 20 mg/2ml Vial SLOW IVP SCH (09:06)
[2019-03-18] MEDS: Enoxaparin Sodium 100 MG/ML SYRINGE SC SCH ×3 (09:08→20:57)
[2019-03-18] MEDS: HumaLOG 300 UNITS/3 ML VIAL SC SCH ×3 (09:08→17:19)
[2019-03-18] MEDS: Pregabalin 50 MG CAP PO SCH ×2 (09:34→20:58)
[2019-03-18] MEDS: TICAGRELOR 90 MG TABLET PO SCH ×2 (09:35→20:59)
[2019-03-18] MEDS: Insulin Glargine 20 UNITS in Pre-Filled Syringe 1 EACH SC SCH ×2 (10:08→11:21)
[2019-03-18] MEDS ORDERED: Furosemide 40 MG/4 ML VIAL SLOW IVP SCH ×2 (10:15→13:00)
--- NOTE | 2019-03-18 12:49 | PDOC.CPN ---
- Subjective Date: 03/18/19 Time: 12:48 Interval history: She is more short of breath. She has a cough which is new. - Review of Systems General: denies: fever/chills, weight/appetite/sleep changes, night sweats, fatigue Respiratory: reports: cough, congestion. denies: shortness of breath, exercise intolerance Cardiovascular: reports: palpitation. denies: chest pain, edema, paroxysmal nocturnal dyspnea, orthopnea Gastrointestinal: denies: nausea, vomiting, diarrhea, constipation, abd pain, GI bleeding Musculoskeletal: denies: pain, tenderness, stiffness, swelling, arthritis/ arthralgias Neurological: denies: numbness, syncope, seizure, weakness - Objective Allergies/Adverse Reactions: Allergies Allergy/AdvReac Type Severity Reaction Status Date / Time latex Allergy Verified 01/24/19 22:40 meperidine [From Demerol] Allergy Verified 01/24/19 22:40 morphine Allergy Verified 01/24/19 22:40 Visit Medications: Current Medications Albuterol/Ipratropium (Duoneb) 3 ml NEB [id number] [facility] Last Admin: 03/18/19 11:43 Dose: 3 ml Alprazolam (Xanax) 1 mg PO TID [facility] Last Admin: 03/18/19 09:06 Dose: 1 mg Aspirin (Aspirin Chewable) 81 mg PO DAILY [facility] Last Admin: 03/18/19 09:06 Dose: 81 mg Atorvastatin Calcium (Lipitor) 40 mg PO DAILY [facility] Last Admin: 03/18/19 09:06 Dose: 40 mg Benzonatate (Tessalon) 100 mg PO TIDPRN PRN PRN Reason: Cough Enoxaparin Sodium (Lovenox) 90 mg SC 0900,2100 [facility] Last Admin: 03/18/19 09:08 Dose: Not Given Escitalopram Oxalate (Lexapro) 20 mg PO DAILY [facility] Last Admin: 03/18/19 09:06 Dose: 20 mg Famotidine (Pepcid) 20 mg SLOW IVP DAILY [facility] Last Admin: 03/18/19 09:06 Dose: 20 mg Furosemide (Lasix) 40 mg PO DAILY [facility] Last Admin: 03/18/19 09:06 Dose: 40 mg Guaifenesin (Organ-I Nr) 200 mg PO Q4H PRN PRN Reason: Congestion Insulin Glargine 60 units/ (Miscellaneous Medication) 0.6 mls @ 0 mls/hr SC HS [facility] Last Admin: 03/17/19 21:14 Dose: Not Given Diltiazem HCl 125 mg/Miscellaneous Medication 1 each/ Sodium Chloride 125 mls @ 10 mls/hr IVPB INF [facility]; Protocol Last Admin: 03/18/19 09:05 Dose: 125 mls Insulin Glargine 20 units/ (Miscellaneous Medication) 0.2 mls @ 0 mls/hr SC QAM [facility] Last Admin: 03/18/19 11:21 Dose: 0.2 mls Insulin Human Lispro (Humalog) 30 units SC AC [facility] Last Admin: 03/18/19 11:26 Dose: Not Given Levothyroxine Sodium (Synthroid) 50 mcg PO 0600 [facility] Last Admin: 03/18/19 05:17 Dose: 50 mcg Pregabalin (Lyrica) 100 mg PO BID [facility] Last Admin: 03/18/19 09:34 Dose: 100 mg Senna/Docusate Sodium (Senokot S) 2 tab PO BID PRN PRN Reason: Constipation Sodium Chloride (Flush - Normal Saline) 10 ml IVF Q12HR PRN PRN Reason: Saline Flush Sodium Chloride (Flush - Normal Saline) 10 ml IVF PRN PRN PRN Reason: Saline Flush Tamsulosin HCl (Flomax) 0.4 mg PO [facility] Last Admin: 03/17/19 21:05 Dose: 0.4 mg Ticagrelor (Brilinta) 90 mg PO BID [facility] Last Admin: 03/18/19 09:35 Dose: 90 mg Tizanidine HCl (Zanaflex) 4 mg PO [facility] Last Admin: 03/17/19 21:05 Dose: 4 mg Vital Signs & Weight: Vital Signs Temp Pulse Resp BP BP Pulse Ox 03/18/19 11:43 92 16 03/18/19 11:15 97.4 F L 94 20 105/51 L 97 03/18/19 08:11 91 L 03/18/19 08:09 81 16 03/18/19 07:42 99.7 F H 99 24 H 154/72 H 96 03/18/19 06:02 96 03/18/19 05:17 94 L 03/18/19 04:27 98.6 F 101 H 24 H 120/60 93 L 03/18/19 02:21 95 03/18/19 02:16 12 Weight 209 lb 6.4 oz - Physical Exam General: alert & oriented x3 HEENT: normocephaly Neck: supple neck Cardiac: no murmur, regular rate, regular rhythm Lungs: bibasilar rales Neuro: grossly intact Skin: clear Musculoskeletal: normal range of motion - Labs Result Diagrams: 03/17/19 04:59 03/17/19 04:59 Troponin/CKMB CK-MB (CK-2) 0.8 ng/mL (0-6.6) 03/17/19 05:00 Troponin I 0.044 ng/mL (< 0.028) H 03/17/19 05:00 - Telemetry Supraventricular conduction: atrial flutter - Assessment/Plan Assessment/Plan: 1. Afib/flutter 2. CAD, stable, no ACS. 3. CKD stage III - IV 4. Ischemic CM EF at 40-45% PLAN: - Sounds wet today. Will give one dose of IV lasix. - CXR - EP consult for afib/flutter. Continue rate control and full anticoagulation.
--- NOTE | 2019-03-18 14:12 | PDOC.HOSPP ---
- Subjective Encounter Date: 03/18/19 Encounter Time: 11:20 Subjective: lethargic, c/o sob and cough - Objective Vital Signs & Weight: Vital Signs (12 hours) Temp Pulse Resp BP BP Pulse Ox 03/18/19 11:43 92 16 03/18/19 11:15 97.4 F L 94 20 105/51 L 97 03/18/19 08:11 91 L 03/18/19 08:09 81 16 03/18/19 07:42 99.7 F H 99 24 H 154/72 H 96 03/18/19 06:02 96 03/18/19 05:17 94 L 03/18/19 04:27 98.6 F 101 H 24 H 120/60 93 L 03/18/19 02:21 95 03/18/19 02:16 12 Weight Weight 209 lb 6.4 oz I&O: 03/17/19 03/18/19 03/19/19 06:59 06:59 06:59 Intake Total 180 746 Output Total 1252 300 900 Balance -1072 446 -900 Result Diagrams: 03/17/19 04:59 03/17/19 04:59 Additional Labs: Accuchecks 03/18/19 03/18/19 03/17/19 11:19 04:38 21:12 POC Glucose 358 H 329 H 234 H 03/17/19 17:50 POC Glucose 340 H Hospitalist ROS - Medication Medications: Active Medications Generic Name Dose Route Start Last Admin Trade Name Freq PRN Reason Stop Dose Admin Albuterol/Ipratropium 3 ml 03/17/19 06:30 03/18/19 11:43 Duoneb NEB 3 ml [id number] CECILIA Administration Aspirin 81 mg 03/17/19 09:00 03/18/19 09:06 Aspirin Chewable PO 81 mg DAILY CECILIA Administration Atorvastatin Calcium 40 mg 03/17/19 09:00 03/18/19 09:06 Lipitor PO 40 mg DAILY CECILIA Administration Enoxaparin Sodium 90 mg 03/17/19 21:00 03/18/19 13:05 Lovenox SC 90 mg 0900,2100 CECILIA Administration Escitalopram Oxalate 20 mg 03/17/19 09:00 03/18/19 09:06 Lexapro PO 20 mg DAILY CECILIA Administration Furosemide 40 mg 03/18/19 13:00 03/18/19 13:05 Lasix SLOW IVP 03/18/19 15:00 40 mg NOW CECILIA Administration Insulin Glargine 60 units/ 0.6 mls @ 0 mls/hr 03/17/19 21:00 03/17/19 21:14 Miscellaneous Medication SC Not Given HS CECILIA Diltiazem HCl 125 mg/ 125 mls @ 10 mls/hr 03/17/19 16:30 03/18/19 09:05 Miscellaneous Medication 1 IVPB 125 mls each/ Sodium Chloride INF CECILIA Administration Protocol Insulin Glargine 20 units/ 0.2 mls @ 0 mls/hr 03/18/19 09:00 03/18/19 11:21 Miscellaneous Medication SC 0.2 mls QAM CECILIA Administration Insulin Human Lispro 30 units 03/17/19 07:30 03/18/19 11:26 Humalog SC Not Given AC CECILIA Levothyroxine Sodium 50 mcg 03/17/19 06:00 03/18/19 05:17 Synthroid PO 50 mcg 0600 CECILIA Administration Pregabalin 100 mg 03/17/19 09:00 03/18/19 09:34 Lyrica PO 100 mg BID CECILIA Administration Tamsulosin HCl 0.4 mg 03/17/19 21:00 03/17/19 21:05 Flomax PO 0.4 mg HS CECILIA Administration Ticagrelor 90 mg 03/17/19 09:00 03/18/19 09:35 Brilinta PO 90 mg BID CECILIA Administration Tizanidine HCl 4 mg 03/17/19 21:00 03/17/19 21:05 Zanaflex PO 4 mg HS CECILIA Administration - Exam General Appearance: NAD, awake alert Eye: PERRL, anicteric sclera ENT: no oropharyngeal lesions, moist mucosa Neck: supple, no JVD Heart: no murmur, irregular Respiratory: no wheezes, rales Gastrointestinal: soft, non-tender, non-distended, normal bowel sounds Extremities: no cyanosis, no clubbing Neurological: CN's grossly intact, no focal deficits Hosp A/P (1) Atrial fibrillation with RVR Code(s): I48.91 - UNSPECIFIED ATRIAL FIBRILLATION Status: Acute (2) PATRICA (acute kidney injury) Code(s): N17.9 - ACUTE KIDNEY FAILURE, UNSPECIFIED Status: Acute (3) COPD (chronic obstructive pulmonary disease) Status: Chronic Qualifiers: COPD type: chronic bronchitis (4) Chronic kidney disease, stage 3 Code(s): N18.3 - CHRONIC KIDNEY DISEASE, STAGE 3 (MODERATE) Status: Chronic (5) Ischemic cardiomyopathy Code(s): I25.5 - ISCHEMIC CARDIOMYOPATHY Status: Chronic (6) Pulmonary HTN Code(s): I27.20 - PULMONARY HYPERTENSION, UNSPECIFIED Status: Chronic (7) Anemia, normocytic normochromic Code(s): D64.9 - ANEMIA, UNSPECIFIED Status: Chronic (8) CAD (coronary artery disease) Code(s): I25.10 - ATHSCL HEART DISEASE OF [place] CORONARY ARTERY W/O ANG PCTRS Status: Chronic Qualifiers: Coronary Disease-Associated Artery/Lesion type: [place] artery [place] vs. transplanted heart: [place] heart Associated angina: with stable angina Qualified Code(s): I25.118 - Atherosclerotic heart disease of [place] coronary artery with other forms of angina pectoris (9) Chronic stage c diastolic heart failure Code(s): I50.32 - CHRONIC DIASTOLIC (CONGESTIVE) HEART FAILURE Status: Chronic (10) DM type 2 (diabetes mellitus, type 2) Status: Chronic Qualifiers: Diabetes mellitus intermediate frame tender insulin use: with senior living use Diabetes mellitus complication status: with kidney complications Diabetes mellitus complication detail: with chronic kidney disease Chronic kidney disease stage : stage 3 (moderate) Qualified Code(s): E11.22 - Type 2 diabetes mellitus with diabetic chronic kidney disease; N18.3 - Chronic kidney disease, stage 3 ( moderate); 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.4 - 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 of insulin (11) Dyslipidemia Code(s): E78.5 - HYPERLIPIDEMIA, UNSPECIFIED Status: Chronic (12) HTN (hypertension) Code(s): I10 - ESSENTIAL (PRIMARY) HYPERTENSION Status: Chronic Qualifiers: Hypertension type: essential hypertension (13) Obesity (BMI 30.0-34.9) Code(s): E66.9 - OBESITY, UNSPECIFIED Status: Chronic - Plan change status to inpatient has ac chf exac sec to aflutter/afib, lasix iv x 1 is on lovenox full dose dm is uncontrolled, give one dose lantus 25 u x1 now, then lantus 20 u daily in addition to 60 qhs + coverage ef of 45% with rvsp of 56mmhg mobilize as tolerated PT eval is on cardizem drip at 10mg/hr
--- NOTE | 2019-03-18 14:47 | RAD ---
FRONTAL VIEW CHEST: 03/18/19 COMPARISON: 03/16/19. INDICATION: Short of breath. FINDINGS: The cardiac silhouette is accentuated by portable technique and patient rotation. There is mild inter stitial prominence of each lung and there is bilateral perihilar vascular prominence. No obvious effu paulina. Chest is otherwise similar. IMPRESSION: Findings favor mild fluid overload. Correlate clinically. As necessary, imaging follow-up may be obta ined. POS: TPC
[2019-03-18] MEDS: tiZANidine HCl 4 MG TAB PO SCH (20:59)
[2019-03-18] MEDS: Tamsulosin HCl 0.4 MG CAP PO SCH (20:59)
[2019-03-18] MEDS: Insulin Glargine 60 UNITS in Pre-Filled Syringe 1 EACH SC SCH (20:59)
[2019-03-18] MEDS: guaiFENesin 200 MG TAB PO PRN (21:08)
[2019-03-18] MEDS: ALPRAZolam 1 MG TAB PO PRN (21:09)
[2019-03-19] MEDS: Levothyroxine Sodium 50 MCG TAB PO SCH (05:51)
[2019-03-19 06:34] LABS: Hemoglobin 7.7 g/dL (12.0-16.0); Platelet Count 182 thou/uL (130-400)
--- NOTE | 2019-03-19 07:46 | EKG ---
Test Reason : Blood Pressure : / mmHG Vent. Rate : 110 BPM Atrial Rate : 110 BPM P-R Int : 192 ms QRS Dur : 152 ms QT Int : 384 ms P-R-T Axes : 042 -01 109 degrees QTc Int : 519 ms wide complex regular tachycardia withouy well defined P waves Left bundle branch block Abnormal ECG 17-MAR-2019 04:49, Nonspecific T wave abnormality now evident in Inferior leads Confirmed by DR. Sofia POLO ([id number]) on 03/19/2019 7:46:16 AM Referred By: KATIE Confirmed By:DR. Sofia POLO
[2019-03-19] MEDS: HumaLOG 300 UNITS/3 ML VIAL SC SCH (08:53)
[2019-03-19] MEDS ORDERED: Enoxaparin Sodium 100 MG/ML SYRINGE SC SCH (09:00)
[2019-03-19] MEDS: Aspirin Chewable 81 MG TAB PO SCH (09:23)
[2019-03-19] MEDS: Insulin Glargine 20 UNITS in Pre-Filled Syringe 1 EACH SC SCH (09:23)
[2019-03-19] MEDS: Atorvastatin Calcium 40 MG TAB PO SCH (09:24)
[2019-03-19] MEDS: Escitalopram Oxalate 20 mg Tablet PO SCH (09:24)
[2019-03-19] MEDS: Pregabalin 50 MG CAP PO SCH ×2 (09:25→20:35)
[2019-03-19] MEDS: Benzonatate 100 MG CAP PO PRN (09:27)
[2019-03-19] MEDS: Lactated Ringer's 1,000 ML IV SCH (09:27)
[2019-03-19] MEDS: TICAGRELOR 90 MG TABLET PO SCH ×2 (09:30→20:34)
[2019-03-19] MEDS ORDERED: traMADol HCl 50 MG TAB PO PRN (10:49)
--- NOTE | 2019-03-19 13:49 | PDOC.HOSPP ---
- Subjective Encounter Date: 03/19/19 Encounter Time: 11:00 Subjective: no chest pain or palp counselled to sit and mobilize as tolerated no obvious bleeding per rectum or dark stool per patient - Objective Vital Signs & Weight: Vital Signs (12 hours) Temp Pulse Resp BP Pulse Ox 03/19/19 11:00 88 20 111/55 L 98 03/19/19 10:34 81 16 95 03/19/19 08:27 88 16 03/19/19 07:54 98.0 F 81 20 123/58 L 96 03/19/19 07:45 96 03/19/19 03:19 98.8 F 90 24 H 129/57 L 98 03/19/19 02:25 83 16 Weight Weight 204 lb 9.6 oz I&O: 03/18/19 03/19/19 03/20/19 06:59 06:59 06:59 Intake Total 746 496.4 480 Output Total 300 900 Balance 446 -403.6 480 Result Diagrams: 03/19/19 06:24 03/19/19 06:24 Additional Labs: Accuchecks 03/19/19 03/19/19 03/18/19 10:57 05:53 20:03 POC Glucose 168 H 145 H 225 H 03/18/19 16:27 POC Glucose 279 H Hospitalist ROS - Medication Medications: Active Medications Generic Name Dose Route Start Last Admin Trade Name Freq PRN Reason Stop Dose Admin Albuterol/Ipratropium 3 ml 03/17/19 06:30 03/19/19 10:34 Duoneb NEB 3 ml [id number] CECILIA Administration Alprazolam 1 mg 03/18/19 14:10 03/18/19 21:09 Xanax PO 1 mg TID PRN Administration anxiety Aspirin 81 mg 03/17/19 09:00 03/19/19 09:23 Aspirin Chewable PO 81 mg DAILY CECILIA Administration Atorvastatin Calcium 40 mg 03/17/19 09:00 03/19/19 09:24 Lipitor PO 40 mg DAILY CECILIA Administration Benzonatate 100 mg 03/17/19 02:50 03/19/19 09:27 Tessalon PO 100 mg TIDPRN PRN Administration Cough Enoxaparin Sodium 90 mg 03/19/19 09:00 03/19/19 09:29 Lovenox SC 90 mg DAILY CECILIA Administration Escitalopram Oxalate 20 mg 03/17/19 09:00 03/19/19 09:24 Lexapro PO 20 mg DAILY CECILIA Administration Guaifenesin 200 mg 03/17/19 02:49 03/18/19 21:08 Organ-I Nr PO 200 mg Q4H PRN Administration Congestion Insulin Glargine 60 units/ 0.6 mls @ 0 mls/hr 03/17/19 21:00 03/18/19 20:59 Miscellaneous Medication SC 0.6 mls HS CECILIA Administration Diltiazem HCl 125 mg/ 125 mls @ 10 mls/hr 03/17/19 16:30 03/18/19 21:46 Miscellaneous Medication 1 IVPB 125 mls each/ Sodium Chloride INF CECILIA Administration Protocol Insulin Glargine 20 units/ 0.2 mls @ 0 mls/hr 03/18/19 09:00 03/19/19 09:23 Miscellaneous Medication SC 0.2 mls QAM CECILIA Administration Lactated Ringer's 1,000 mls @ 50 mls/hr 03/19/19 08:30 03/19/19 09:27 Lactated Ringer's IV 1,000 mls .Q20H CECILIA Administration Levothyroxine Sodium 50 mcg 03/17/19 06:00 03/19/19 05:51 Synthroid PO 50 mcg 0600 CECILIA Administration Pregabalin 50 mg 03/19/19 09:00 03/19/19 09:25 Lyrica PO 50 mg BID CECILIA Administration Tamsulosin HCl 0.4 mg 03/17/19 21:00 03/18/19 20:59 Flomax PO 0.4 mg HS CECILIA Administration Ticagrelor 90 mg 03/17/19 09:00 03/19/19 09:30 Brilinta PO 90 mg BID CECILIA Administration Tizanidine HCl 4 mg 03/17/19 21:00 03/18/19 20:59 Zanaflex PO 4 mg HS CECILIA Administration - Exam General Appearance: NAD, awake alert Eye: PERRL, anicteric sclera ENT: no oropharyngeal lesions, moist mucosa Neck: supple, no JVD Heart: RRR, no murmur Respiratory: no wheezes, no rales, rhonchi Gastrointestinal: soft, non-tender, non-distended, normal bowel sounds Extremities: no cyanosis, no edema Neurological: CN's grossly intact, no focal deficits Psychiatric: A&O x 3 Hosp A/P (1) Atrial fibrillation with RVR Code(s): I48.91 - UNSPECIFIED ATRIAL FIBRILLATION Status: Acute (2) PATRICA (acute kidney injury) Code(s): N17.9 - ACUTE KIDNEY FAILURE, UNSPECIFIED Status: Acute (3) COPD (chronic obstructive pulmonary disease) Status: Chronic Qualifiers: COPD type: chronic bronchitis (4) Chronic kidney disease, stage 3 Code(s): N18.3 - CHRONIC KIDNEY DISEASE, STAGE 3 (MODERATE) Status: Chronic (5) Ischemic cardiomyopathy Code(s): I25.5 - ISCHEMIC CARDIOMYOPATHY Status: Chronic (6) Pulmonary HTN Code(s): I27.20 - PULMONARY HYPERTENSION, UNSPECIFIED Status: Chronic (7) Anemia, normocytic normochromic Code(s): D64.9 - ANEMIA, UNSPECIFIED Status: Chronic (8) CAD (coronary artery disease) Code(s): I25.10 - ATHSCL HEART DISEASE OF [place] CORONARY ARTERY W/O ANG PCTRS Status: Chronic Qualifiers: Coronary Disease-Associated Artery/Lesion type: [place] artery [place] vs. transplanted heart: [place] heart Associated angina: with stable angina Qualified Code(s): I25.118 - Atherosclerotic heart disease of [place] coronary artery with other forms of angina pectoris (9) Chronic stage c diastolic heart failure Code(s): I50.32 - CHRONIC DIASTOLIC (CONGESTIVE) HEART FAILURE Status: Chronic (10) DM type 2 (diabetes mellitus, type 2) Status: Chronic Qualifiers: Diabetes mellitus intermediate insulin use: with intermediate use Diabetes mellitus complication status: with kidney complications Diabetes mellitus complication detail: with chronic kidney disease Chronic kidney disease stage : stage 3 (moderate) Qualified Code(s): E11.22 - Type 2 diabetes mellitus with diabetic chronic kidney disease; N18.3 - Chronic kidney disease, stage 3 ( moderate); 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
--- NOTE | 2019-03-19 13:56 | ULT ---
EXAM: RENAL ULTRASOUND 03/19/19 HISTORY: Acute kidney insufficiency. COMPARISON: None. TECHNIQUE: Sagittal and transverse imaging of the kidneys is performed . FINDINGS: Right kidney: Normal cortical echotexture. No hydronephrosis. Right kidney measures 5.1 x 9.0 x 5.6 cm. Left kidney: Normal cortical echotexture. There is mild nodularity of the renal parenchyma. No hydronephrosis. L eft kidney measures 5.09 x 11.6 x 5.1 cm. Urinary bladder has a normal mucosal appearance, with a prevoid volume of 302 mL. Bilateral ureteral jets are identified. IMPRESSION: 1. Mild nodularity of the right kidney, nonspecific. If there is concern for renal mass, additio nal imaging such as a renal mass protocol CT or abdomen MRI can be performed. Correlation made with a renal stone CT from 02/11/19 does demonstrate mild nodularity of the left and the right kidney. 2. No hydronephrosis. 3. Bilateral ureteral jets with unremarkable urinary bladder mucosa. POS: TPC
[2019-03-19 16:33] LABS: Hemoglobin 7.9 g/dL (12.0-16.0)
--- NOTE | 2019-03-19 16:48 | CT ---
CT ABDOMEN WITHOUT IV CONTRAST: 03/19/19 INDICATIONS: Acute kidney insufficiency. Renal nodularity which was described on recent renal ultrasound of 9. Comparison made to noncontrast CT of 02/21/19. The kidneys appear stable from prior exam. A renal mass density cannot be excluded on this nonenhance d exam. The irregularity and the renal contours probably accounts for the nodularity seen on ultrasou nd. There is also perinephric stranding present. No hydronephrosis. Liver, spleen and pancreas unremarkable and stable. Small bilateral pleural effusions have occurred s aaron the prior exam of 02/21/19. IMPRESSION: Kidneys are stable from 02/21/19. Small bilateral pleural effusions have occurred since the 02/21/19 ex am. POS: OFF
[2019-03-19 16:59] LABS: Albumin 3.4 g/dL (3.4-4.8); Anion Gap 16 mmol/L (10-20); BUN (Urea Nitrogen) 58 mg/dL (9.8-20.1); BUN/Creatinine Ratio 22.66; Calc. Creatinine Clearance 34 mL/min (70-130); Carbon Dioxide 24 mmol/L (23-31); Chloride 102 mmol/L (98-107); Estimated GFR-MDRD 19; Glucose 172 mg/dL (80-115); Phosphorus 4.5 mg/dL (2.3-4.7); Potassium 3.2 mmol/L (3.5-5.1); Sodium 139 mmol/L (136-145)
--- NOTE | 2019-03-19 17:12 | CON ---
DATE OF CONSULTATION: REQUESTING PHYSICIAN: Dr. Peter. REASON FOR REQUEST: Atrial arrhythmia. HISTORY OF PRESENT ILLNESS: Ms. Mendez is a 63-year-old female with a history of chronic kidney disease, status post stenting, diabetes, hypercholesterolemia, COPD, hypertension, who is admitted to the hospital with chest pain and back pain. While in hospital, she has been noted to have episodes of atrial arrhythmia. She has been placed on anticoagulation and Cardizem. She reports she continues to have significant weakness. PAST MEDICAL HISTORY: Significant for coronary artery disease, status post stenting; hyperlipidemia; COPD; previous [place]. ALLERGIES: INCLUDE DEMEROL, LATEX, AND MORPHINE. CURRENT MEDICATIONS: Include; 1. Aspirin. 2. Lipitor. 3. Tizanidine. 4. Escitalopram. 5. Lyrica. 6. Levothyroxine. 7. Insulin. 8. Xanax. 9. Brilinta. 10. Lasix. FAMILY HISTORY: No early coronary artery disease or sudden cardiac . SOCIAL HISTORY: She lives at home. She does not drink, smoke, or use illicit medications. REVIEW OF SYSTEMS: Reviewed. She denies nausea, vomiting, diarrhea, fever, chills, or change in vision or hearing. All others were negative other than included in the HPI. PHYSICAL EXAMINATION: VITAL SIGNS: She is afebrile. Pulse is 86, blood pressure is 164/72. HEENT: Pupils are equal, round, and reactive to light and accommodation. Extraocular movements are intact. Nose; midline septum. No rhinorrhea or epistaxis. Throat, moist. No erythema or exudate. NECK: Supple without lymphadenopathy, JVD, or goiter. HEART: Regular rate and rhythm without murmur, gallop, or rub. LUNGS: Clear to auscultation and percussion bilaterally. ABDOMEN: Soft, nontender, and nontender. Positive bowel sounds. EXTREMITIES: Without cyanosis, clubbing, or edema. NEUROLOGIC: Cranial nerves 2 through 12 are grossly intact. Motor strength is 5/5 throughout. DIAGNOSTIC STUDIES: Telemetry reveals sinus rhythm, left bundle-branch block. Previous EKG showed atrial fibrillation, left bundle-branch block. IMPRESSION: 1. Atrial fibrillation. 2. Coronary artery disease, status post stenting. 3. Hyperlipidemia. 4. Hypertension. 5. Diabetes. 6. History of myocardial infarction. RECOMMENDATIONS: Ms. Mendez has atrial arrhythmias that appeared to be paroxysmal. I recommend initially needing anticoagulation therapy and considering addition of a beta laura to her regimen. If she has continued issues, therapy with antiarrhythmics or ablation could be considered. Job ID: [id number]
--- NOTE | 2019-03-19 18:37 | PDOC.CPN ---
- Subjective Date: 03/19/19 Time: 18:37 - Review of Systems General: denies: fever/chills, weight/appetite/sleep changes, night sweats, fatigue Respiratory: reports: congestion. denies: cough, shortness of breath, exercise intolerance Cardiovascular: denies: chest pain, palpitation, edema, paroxysmal nocturnal dyspnea, orthopnea Gastrointestinal: denies: nausea, vomiting, diarrhea, constipation, abd pain, GI bleeding Musculoskeletal: denies: pain, tenderness, stiffness, swelling, arthritis/ arthralgias Neurological: denies: numbness, syncope, seizure, weakness - Objective Allergies/Adverse Reactions: Allergies Allergy/AdvReac Type Severity Reaction Status Date / Time latex Allergy Verified 01/24/19 22:40 meperidine [From Demerol] Allergy Verified 01/24/19 22:40 morphine Allergy Verified 01/24/19 22:40 Visit Medications: Current Medications Albuterol/Ipratropium (Duoneb) 3 ml NEB [id number] [facility] Last Admin: 03/19/19 18:30 Dose: 3 ml Alprazolam (Xanax) 1 mg PO TID PRN PRN Reason: anxiety Last Admin: 03/18/19 21:09 Dose: 1 mg Aspirin (Aspirin Chewable) 81 mg PO DAILY [facility] Last Admin: 03/19/19 09:23 Dose: 81 mg Atorvastatin Calcium (Lipitor) 40 mg PO DAILY [facility] Last Admin: 03/19/19 09:24 Dose: 40 mg Benzonatate (Tessalon) 100 mg PO TIDPRN PRN PRN Reason: Cough Last Admin: 03/19/19 09:27 Dose: 100 mg Clopidogrel Bisulfate (Plavix) 75 mg PO DAILY [facility] Escitalopram Oxalate (Lexapro) 20 mg PO DAILY [facility] Last Admin: 03/19/19 09:24 Dose: 20 mg Guaifenesin (Organ-I Nr) 200 mg PO Q4H PRN PRN Reason: Congestion Last Admin: 03/18/19 21:08 Dose: 200 mg Insulin Glargine 60 units/ (Miscellaneous Medication) 0.6 mls @ 0 mls/hr SC HS [facility] Last Admin: 03/18/19 20:59 Dose: 0.6 mls Insulin Glargine 20 units/ (Miscellaneous Medication) 0.2 mls @ 0 mls/hr SC QAM [facility] Last Admin: 03/19/19 09:23 Dose: 0.2 mls Lactated Ringer's (Lactated Ringer's) 1,000 mls @ 50 mls/hr IV .Q20H [facility] Last Admin: 03/19/19 09:27 Dose: 1,000 mls Levothyroxine Sodium (Synthroid) 50 mcg PO 0600 [facility] Last Admin: 03/19/19 05:51 Dose: 50 mcg Pregabalin (Lyrica) 50 mg PO BID [facility] Last Admin: 03/19/19 09:25 Dose: 50 mg Senna/Docusate Sodium (Senokot S) 2 tab PO BID PRN PRN Reason: Constipation Sodium Chloride (Flush - Normal Saline) 10 ml IVF Q12HR PRN PRN Reason: Saline Flush Sodium Chloride (Flush - Normal Saline) 10 ml IVF PRN PRN PRN Reason: Saline Flush Tamsulosin HCl (Flomax) 0.4 mg PO HS [facility] Last Admin: 03/18/19 20:59 Dose: 0.4 mg Ticagrelor (Brilinta) 90 mg PO BID [facility] Stop: 03/19/19 23:59 Last Admin: 03/19/19 09:30 Dose: 90 mg Tizanidine HCl (Zanaflex) 4 mg PO [facility] Last Admin: 03/18/19 20:59 Dose: 4 mg Tramadol HCl (Ultram) 50 mg PO Q6H PRN PRN Reason: Pain Vital Signs & Weight: Vital Signs Temp Pulse Resp BP Pulse Ox 03/19/19 18:30 87 16 97 03/19/19 15:25 97.2 F L 80 20 125/60 94 L 03/19/19 13:55 81 16 03/19/19 11:00 88 20 111/55 L 98 03/19/19 10:34 81 16 95 03/19/19 08:27 88 16 03/19/19 07:54 98.0 F 81 20 123/58 L 96 03/19/19 07:45 96 Weight 204 lb 9.6 oz - Physical Exam General: alert & oriented x3 HEENT: mucus membranes moist Neck: supple neck Cardiac: no murmur, regular rate, regular rhythm Lungs: clear to auscultation Neuro: grossly intact Abdomen: active bowel sounds, soft, non-tender Skin: clear Musculoskeletal: normal range of motion - Labs Result Diagrams: 03/19/19 16:23 03/19/19 16:23 Troponin/CKMB CK-MB (CK-2) 0.8 ng/mL (0-6.6) 03/17/19 05:00 Troponin I 0.044 ng/mL (< 0.028) H 03/17/19 05:00 - Telemetry Sinus rhythms and dysrhythmias: sinus rhythm - Assessment/Plan Assessment/Plan: 1. Afib, back in sinus. 2. CAD, stable, no ACS. 3. CKD stage III - IV 4. Ischemic CM EF at 40-45% 5. Acute on chronic systolic heart failure. 6. Anemia PLAN: - Likely pre renal. She looks better now and no longer SOB. - Creatinine too high for a C. - Will stop diltiazem drip. - Will stop anticoagulation and switch brilinta to plavix diue to her anemia. GI to evaluate for this. - POOJA to her mid LAD, cannot stop Plavix for now.
--- NOTE | 2019-03-19 19:20 | CON ---
DATE OF CONSULTATION: REASON FOR CONSULTATION: Elevated creatinine. HISTORY OF PRESENT ILLNESS: This is a very pleasant 63-year-old female, presented to the hospital 2 days ago for chest pain. The patient had a creatinine in the 1.6, which increased to 2.5 today, so I was consulted. The patient denies any nausea, vomiting, or leg swelling or chest pain. PAST MEDICAL HISTORY: [place], hypertension, diabetes mellitus, COPD, fibromyalgia, depression, coronary artery disease with stent, hysterectomy, cyst removal SOCIAL HISTORY: No alcohol or drug use. ALLERGIES: REVIEWED. HOME MEDICATIONS: List reviewed. HOSPITAL MEDICATIONS: List reviewed. REVIEW OF SYSTEMS: A 15-point review of system was performed and negative except for positive noted above. GENERAL: HEAD: NECK: No swelling or lumps. NOSE: No epistaxis or discharge. EYES: No diplopia or pain. RESPIRATORY: CARDIOVASCULAR: GASTROINTESTINAL: /LIP CUTTER: MUSCULOSKELETAL: No joint pain. NEUROPSYCHIATIC SYSTEMS: No suicidal ideation. No ideation. SKIN: Denies any rash or ulcer. CONSTITUTIONAL: No fever or chills. PHYSICAL EXAMINATION: GENERAL: The patient is awake and alert. VITAL SIGNS: Pulse 85, breathing 16, blood pressure 123/58. GENERAL APPEARANCE AND MENTAL STATUS: Fair. HEAD/NECK: Normocephalic. Atraumatic. EYES: EOMI. No deformity. EARS: Clear. No ulcers. NOSE: Intact. No lesions. MOUTH: Clear. No discharge. THROAT: Clear. No exudate. LUNGS: Clear. No crackles. CARDIAC: S1, S2. No rub. ABDOMEN: Benign. Bowel sounds positive. GENITALIA/RECTUM: Howard absent. BACK/EXTREMITIES: Edema 0+. NEUROLOGICAL: Alert and motor intact. SKIN: LYMPHATICS: LABORATORY DATA: Show creatinine of 2.5. ASSESSMENT AND RECOMMENDATION: 1. Acute kidney injury on chronic kidney disease, most likely due to decreased effective arterial blood volume and cardiorenal syndrome. No indication for dialysis. Continue current management. 2. Hypertension, stable. 3. Anemia, stable. 4. Medication based on GFR, appropriate. Job ID: [id number]
[2019-03-19] MEDS: Tamsulosin HCl 0.4 MG CAP PO SCH (20:34)
[2019-03-19] MEDS: tiZANidine HCl 4 MG TAB PO SCH (20:34)
[2019-03-19] MEDS: Insulin Glargine 60 UNITS in Pre-Filled Syringe 1 EACH SC SCH (20:39)
[2019-03-20 04:47] LABS: #Eosinphils 0.3 thou/uL (0.0-0.7); #Lymphocytes 0.9 thou/uL (1.20-3.40); #Monocytes 0.4 thou/uL (0.11-0.59); #Neutrophils 3.1 thou/uL (1.40-6.50); %Basophils 0.5 % (0.0-1.0); %Lymphocytes 18.7 % (21.0-51.0); %Neutrophils 65.9 % (42.0-75.0); Hemoglobin 7.4 g/dL (12.0-16.0); Mean Corpuscular HGB CONC 33.4 g/dL (32.0-36.0); Mean Corpuscular Hemoglobin 27.5 pg (27.0-31.0); Mean Corpuscular Volume 82.2 fL (78.0-98.0); Mean Platelet Volume 9.3 fL (7.4-10.4); Platelet Count 180 thou/uL (130-400); RBC Distribution Width 14.5 % (11.5-14.5); Red Blood Cell (RBC) Count 2.68 mill/uL (4.20-5.40); White Blood Cell (WBC) Count 4.8 thou/uL (4.8-10.8)
[2019-03-20 05:01] LABS: Anion Gap 11 mmol/L (10-20); BUN (Urea Nitrogen) 54 mg/dL (9.8-20.1); Calc. Creatinine Clearance 40 mL/min (70-130); Calcium 8.8 mg/dL (7.8-10.44); Carbon Dioxide 28 mmol/L (23-31); Chloride 102 mmol/L (98-107); Estimated GFR-MDRD 23; Potassium 3.4 mmol/L (3.5-5.1); Sodium 138 mmol/L (136-145)
[2019-03-20 05:05] LABS: Glucose 56 mg/dL (80-115)
[2019-03-20] MEDS: Levothyroxine Sodium 50 MCG TAB PO SCH (05:33)
[2019-03-20] MEDS: Lactated Ringer's 1,000 ML IV SCH (05:33)
--- NOTE | 2019-03-20 07:57 | CON ---
DATE OF CONSULTATION: 03/19/2019 REASON FOR CONSULTATION: Anemia with recent drop in blood count. HISTORY OF PRESENT ILLNESS: Ms. Adela Mendez is a very pleasant 63-year-old female with multiple medical problems. She had a myocardial infarction in January of 2019 and has had a stent placement in LAD. She also has minimal coronary disease in the RCA and the plan was being made for later on intervention. The patient takes Brilinta. The patient also has chest pain and was found to be in atrial fibrillation. She appears to be in atrial flutter, fibrillation. She was started on Cardizem drip and reverted back to sinus rhythm. EPS was pending for possible ablation. The patient was found to have anemia on admission. In fact, she was anemic when she was here in January of 2019. Her anemia was very mild around 10. Now it has been drifting down and started to drop down to as low as 7.7 and 7.9 respectively. The patient presently has no history of any hematochezia. No melena. She has mild epistaxis once in a while. No hematuria. There is no other blood loss. While in the hospital, she has had no bloody stool or any melenic stool. The patient has a personal history of peptic ulcer disease. No abdominal pain. No nausea or vomiting. No dysphagia or odynophagia. The patient has really no evidence of localizing symptoms of anemia. FAMILY HISTORY: She does have a family history of colon cancer. Apparently her father had colon cancer and also lung cancer. Also her grandparent had colon cancer. An aunt had colon cancer. Although, she has strong family history of colon cancer, she has not had a colonoscopy. Her bowel movements are usually constipated at times. She has also loose stools. She has history of black stools off and on. She has no relevant history. MEDICAL ILLNESSES: 1. Microinfarction in January 2019, status post stent placement. 2. Residual RCA disease. 3. Type 2 diabetes. 4. Hypothyroidism. 5. Hyperlipidemia. 6. COPD. 7. Hypertension. 8. Fibromyalgia. 9. Migraine headache. 10. Anxiety, depression. 11. Recent atrial fibrillation, flutter. PAST SURGICAL HISTORY: 1. Had coronary artery stent placement in January of 2019. 2. Hysterectomy. 3. Right leg surgery. 4. Removal of left axillary cyst in the past. SOCIAL HISTORY: The patient does not smoke or drink alcohol. No illicit drug abuse. ALLERGIES: DEMEROL, LATEX, MEPERIDINE AND MORPHINE. MEDICATIONS: List is reviewed, which includes multiple includin. Lantus. 2. NovoLog. 3. Lasix. 4. Aspirin. 5. Xanax. 6. Lexapro. 7. Atorvastatin. 8. Flonase. 9. Flomax. 10. Pregabalin. 11. Lyrica. 12. Levothyroxine. 13. Tizanidine. 14. Glipizide. 15. Ticagrelor . REVIEW OF SYSTEMS: Ten point system review: CONSTITUTIONAL: No history of weight loss. No history of fever. Her exercise tolerance is fair. HEAD: No chronic headache. ENT: No impaired vision or diplopia. No hearing impairment. No nose bleed. No sore throat. LUNGS: History of asthma, COPD and does have SOB and mild wheezing overall. CARDIOVASCULAR: Chest pain, difficulty breathing. No orthopnea, no PND. GI: Totally unremarkable. She does have a history of constipation, otherwise she has no hematochezia or melena. . : Unremarkable. MUSCULOSKELETAL: Not known. NEUROLOGIC: Not known. ENDOCRINE: Not known. HEMATOLOGIC: Not known. PHYSICAL EXAMINATION: GENERAL: She is obese, appears very comfortable, in no acute distress. She is not short winded. VITAL SIGNS: Actually stable at the present time. She is afebrile, her pulse is around 80, blood pressure is 126/60. EYES: Conjunctivae clear. NECK: Supple. No adenitis or thyromegaly noted. CARDIOVASCULAR: First and second heart sounds. LUNGS: She had rales at both bases. No wheezing heard. ABDOMEN: Soft and nontender. No organomegaly. No masses. EXTREMITIES: No edema. LABORATORY DATA: Shows anemia with hemoglobin dropping down to as low as 7.7, on repeat it came to 7.9. She has normal chem 7. She has had no hemoccult testing done. The patient has no history of any GI bleeding or any blood loss from any source. Her anemia is mostly anemia of chronic disease. However, she had drops in blood count usually by almost 2 g. 1. Coronary artery disease, status post stent placement. 2. COPD. 3. Asthma. 4. Obesity. 5. Diabetes mellitus. 6. Hypertension. 7. Hyperlipidemia. 8. Atrial flutter, fibrillation. RECOMMENDATION: Changing diet to clear liquid diet tomorrow. We will prep the patient for a colonoscopy and EGD for Sunday. I did speak to Dr. 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 He does not want the Brilinta to be stopped. It is too risky the stop the Brilinta, because of possibility of stent occlusion. There is risk of bleeding with the procedure, but there is no other option. Dr. Peter tells me that he wants to get a full anticoagulation, if the EGD and colonoscopy are negative. This was explained to the patient. The patient will be kept on Brilinta and will stop the Lovenox tomorrow. We will plan for EGD and colonoscopy on Sunday. I also ordered some stool for Hemoccult testing in the meantime. Job ID: [id number]
[2019-03-20] MEDS: Escitalopram Oxalate 20 mg Tablet PO SCH (09:04)
[2019-03-20] MEDS: Aspirin Chewable 81 MG TAB PO SCH (09:04)
[2019-03-20] MEDS: Atorvastatin Calcium 40 MG TAB PO SCH (09:04)
[2019-03-20] MEDS: Pregabalin 50 MG CAP PO SCH ×2 (09:05→20:56)
[2019-03-20] MEDS: Clopidogrel Bisulfate 75 MG TAB PO SCH (09:07)
[2019-03-20] MEDS: ALPRAZolam 1 MG TAB PO PRN ×2 (09:10→20:56)
[2019-03-20] MEDS: Insulin Glargine 20 UNITS in Pre-Filled Syringe 1 EACH SC SCH (09:21)
--- NOTE | 2019-03-20 13:09 | PRG ---
DATE OF SERVICE: 03/20/2019 SUBJECT: A 63-year-old female, being seen for acute kidney injury. The patient denied any nausea, vomiting, or chest pain. OBJECTIVE: See above. Awake, alert, in no acute distress. VITAL SIGNS: Afebrile, pulse 64, breathing 16, blood pressure 135/66. GENERAL APPEARANCE AND MENTAL STATUS: Fair. HEAD/NECK: Normocephalic. Atraumatic. EYES: EOMI. No deformity. EARS: Clear. No ulcers. NOSE: Intact. No lesions. MOUTH: Clear. No discharge. THROAT: Clear. No exudate. LUNGS: Clear. No crackles. CARDIAC: S1, S2. No rub. ABDOMEN: Benign. Bowel sounds positive. GENITALIA/RECTUM: Howard absent. BACK/EXTREMITIES: Edema 0+. NEUROLOGICAL: Alert and motor intact. SKIN: LYMPHATICS: LABORATORY DATA: Hemoglobin 7.4. Creatinine 2.1. ASSESSMENT AND PLAN: 1. Acute kidney injury, improved. 2. Chronic kidney disease, stage 4, stable. Acute tubular necrosis improved. 3. Hypokalemia, recommend 20 mEq of potassium. 4. Anemia, we would recommend transfusion. No indication for dialysis. We will follow renal function closely. Job ID: [id number]
--- NOTE | 2019-03-20 16:43 | PDOC.CPN ---
- Subjective Date: 03/20/19 Time: 16:37 Interval history: She feels much better. No chest pain, tightness, pressure. Remains in sinus. Her breathing is back to baseline. - Review of Systems General: denies: fever/chills, weight/appetite/sleep changes, night sweats, fatigue Respiratory: denies: cough, congestion, shortness of breath, exercise intolerance Cardiovascular: denies: chest pain, palpitation, edema, paroxysmal nocturnal dyspnea, orthopnea Gastrointestinal: denies: nausea, vomiting, diarrhea, constipation, abd pain, GI bleeding Musculoskeletal: denies: pain, tenderness, stiffness, swelling, arthritis/ arthralgias Neurological: denies: numbness, syncope, seizure, weakness - Objective Allergies/Adverse Reactions: Allergies Allergy/AdvReac Type Severity Reaction Status Date / Time latex Allergy Verified 01/24/19 22:40 meperidine [From Demerol] Allergy Verified 01/24/19 22:40 morphine Allergy Verified 01/24/19 22:40 Visit Medications: Current Medications Albuterol/Ipratropium (Duoneb) 3 ml NEB [id number] [facility] Last Admin: 03/20/19 15:00 Dose: 3 ml Alprazolam (Xanax) 1 mg PO TID PRN PRN Reason: anxiety Last Admin: 03/20/19 09:10 Dose: 1 mg Aspirin (Aspirin Chewable) 81 mg PO DAILY [facility] Last Admin: 03/20/19 09:04 Dose: 81 mg Atorvastatin Calcium (Lipitor) 40 mg PO DAILY [facility] Last Admin: 03/20/19 09:04 Dose: 40 mg Benzonatate (Tessalon) 100 mg PO TIDPRN PRN PRN Reason: Cough Last Admin: 03/19/19 09:27 Dose: 100 mg Clopidogrel Bisulfate (Plavix) 75 mg PO DAILY [facility] Last Admin: 03/20/19 09:07 Dose: 75 mg Escitalopram Oxalate (Lexapro) 20 mg PO DAILY [facility] Last Admin: 03/20/19 09:04 Dose: 20 mg Guaifenesin (Organ-I Nr) 200 mg PO Q4H PRN PRN Reason: Congestion Last Admin: 03/18/19 21:08 Dose: 200 mg Insulin Glargine 60 units/ (Miscellaneous Medication) 0.6 mls @ 0 mls/hr SC HS [facility] Last Admin: 03/19/19 20:39 Dose: 0.6 mls Insulin Glargine 20 units/ (Miscellaneous Medication) 0.2 mls @ 0 mls/hr SC QAM [facility] Last Admin: 03/20/19 09:21 Dose: Not Given Lactated Ringer's (Lactated Ringer's) 1,000 mls @ 50 mls/hr IV .Q20H [facility] Last Admin: 03/20/19 05:33 Dose: 1,000 mls Levothyroxine Sodium (Synthroid) 50 mcg PO 0600 [facility] Last Admin: 03/20/19 05:33 Dose: 50 mcg Polyethylene Glycol/Electrolytes (Golytely) 2,000 ml PO 0600,1730 [facility] Stop: 03/21/19 09:00 Pregabalin (Lyrica) 50 mg PO BID [facility] Last Admin: 03/20/19 09:05 Dose: 50 mg Senna/Docusate Sodium (Senokot S) 2 tab PO BID PRN PRN Reason: Constipation Sodium Chloride (Flush - Normal Saline) 10 ml IVF Q12HR PRN PRN Reason: Saline Flush Sodium Chloride (Flush - Normal Saline) 10 ml IVF PRN PRN PRN Reason: Saline Flush Tamsulosin HCl (Flomax) 0.4 mg PO [facility] Last Admin: 03/19/19 20:34 Dose: 0.4 mg Tizanidine HCl (Zanaflex) 4 mg PO [facility] Last Admin: 03/19/19 20:34 Dose: 4 mg Tramadol HCl (Ultram) 50 mg PO Q6H PRN PRN Reason: Pain Vital Signs & Weight: Vital Signs Temp Pulse Resp BP Pulse Ox 03/20/19 15:00 85 16 95 03/20/19 12:33 97.6 F 90 16 143/61 H 97 03/20/19 10:51 84 16 96 03/20/19 09:02 97.7 F 88 16 149/70 H 100 03/20/19 08:50 98 03/20/19 07:01 96 03/20/19 06:58 82 16 96 Weight 201 lb 1.6 oz - Physical Exam General: alert & oriented x3 HEENT: mucus membranes moist Neck: supple neck Cardiac: regular rate and rhythm, no murmur Lungs: clear to auscultation Neuro: grossly intact Abdomen: active bowel sounds, soft, non-tender Skin: clear Musculoskeletal: normal range of motion - Labs Result Diagrams: 03/20/19 03:34 03/20/19 03:34 Troponin/CKMB CK-MB (CK-2) 0.8 ng/mL (0-6.6) 03/17/19 05:00 Troponin I 0.044 ng/mL (< 0.028) H 03/17/19 05:00 - Telemetry Sinus rhythms and dysrhythmias: sinus rhythm - Assessment/Plan Assessment/Plan: 1. Afib, back in sinus. 2. CAD, stable, no ACS. 3. CKD stage III - IV 4. Ischemic CM EF at 40-45% 5. Acute on chronic systolic heart failure. 6. Anemia PLAN: - Likely pre renal. She looks better now and no longer SOB. - Creatinine too high for a LHC. - GI to evaluate for anemia. - POOJA to her mid LAD, cannot stop Plavix for now. - Ok to proceed with endoscopies tomorrow to assess for anemia.
[2019-03-20] MEDS ORDERED: Dextrose 10% in Water 1,000 ML IV SCH (17:00)
--- NOTE | 2019-03-20 17:19 | PDOC.HOSPP ---
- Subjective Encounter Date: 03/20/19 Encounter Time: 09:30 Subjective: pt up in chair no complains. - Objective Vital Signs & Weight: Vital Signs (12 hours) Temp Pulse Resp BP Pulse Ox 03/20/19 16:01 97.7 F 94 20 117/56 L 99 03/20/19 15:00 85 16 95 03/20/19 12:33 97.6 F 90 16 143/61 H 97 03/20/19 10:51 84 16 96 03/20/19 09:02 97.7 F 88 16 149/70 H 100 03/20/19 08:50 98 03/20/19 07:01 96 03/20/19 06:58 82 16 96 Weight Weight 201 lb 1.6 oz I&O: 03/19/19 03/20/19 03/21/19 06:59 06:59 06:59 Intake Total 496.4 480 1022 Output Total 900 1350 Balance -403.6 480 -328 Result Diagrams: 03/20/19 03:34 03/20/19 03:34 Additional Labs: Accuchecks 03/20/19 03/20/19 03/20/19 16:42 11:54 10:36 POC Glucose 60 L 99 79 03/20/19 03/20/19 03/19/19 10:31 09:19 17:12 POC Glucose 82 64 L 193 H Hospitalist ROS - Review of Systems Respiratory: denies: cough, dry, shortness of breath, hemoptysis, SOB with excertion, pleuritic pain, sputum, wheezing, other Cardiovascular: denies: chest pain, palpitations, orthopnea, paroxysmal noc. dyspnea, edema, light headedness, other Gastrointestinal: denies: nausea, vomiting, abdominal pain, diarrhea, constipation, melena, hematochezia, other - Medication Medications: Active Medications Generic Name Dose Route Start Last Admin Trade Name Freq PRN Reason Stop Dose Admin Albuterol/Ipratropium 3 ml 03/17/19 06:30 03/20/19 15:00 Duoneb NEB 3 ml [id number] [facility] Administration Alprazolam 1 mg 03/18/19 14:10 03/20/19 09:10 Xanax PO 1 mg TID PRN Administration anxiety Aspirin 81 mg 03/17/19 09:00 03/20/19 09:04 Aspirin Chewable PO 81 mg DAILY [facility] Administration Atorvastatin Calcium 40 mg 03/17/19 09:00 03/20/19 09:04 Lipitor PO 40 mg DAILY [facility] Administration Benzonatate 100 mg 03/17/19 02:50 03/19/19 09:27 Tessalon PO 100 mg TIDPRN PRN Administration Cough Clopidogrel Bisulfate 75 mg 03/20/19 09:00 03/20/19 09:07 Plavix PO 75 mg DAILY [facility] Administration Escitalopram Oxalate 20 mg 03/17/19 09:00 03/20/19 09:04 Lexapro PO 20 mg DAILY [facility] Administration Guaifenesin 200 mg 03/17/19 02:49 03/18/19 21:08 Organ-I Nr PO 200 mg Q4H PRN Administration Congestion Insulin Glargine 60 units/ 0.6 mls @ 0 mls/hr 03/17/19 21:00 03/19/19 20:39 Miscellaneous Medication SC 0.6 mls HS [facility] Administration Insulin Glargine 20 units/ 0.2 mls @ 0 mls/hr 03/18/19 09:00 03/20/19 09:21 Miscellaneous Medication SC Not Given QAM [facility] Levothyroxine Sodium 50 mcg 03/17/19 06:00 03/20/19 05:33 Synthroid PO 50 mcg 0600 [facility] Administration Pregabalin 50 mg 03/19/19 09:00 03/20/19 09:05 Lyrica PO 50 mg BID [facility] Administration Tamsulosin HCl 0.4 mg 03/17/19 21:00 03/19/19 20:34 Flomax PO 0.4 mg HS [facility] Administration Tizanidine HCl 4 mg 03/17/19 21:00 03/19/19 20:34 Zanaflex PO 4 mg HS [facility] Administration - Exam Neck: negative: supple, symmetric, no JVD, no thyromegaly, no lymphadenopathy, no carotid bruit, JVD Heart: negative: RRR, no murmur, no gallops, no rubs, normal peripheral pulses, irregular, diminshed peripheral pulses, murmur present, II/IV, III/IV Respiratory: negative: CTAB, no wheezes, no rales, no ronchi, normal chest expansion, no tachypnea, normal percussion, rales, rhonchi, tachypneic, wheezes Gastrointestinal: negative: soft, non-tender, non-distended, normal bowel sounds , no palpable masses, no hepatomegaly, no splenomegaly, no bruit, no guarding, no rigidity, tender to palpation, distended, diminished bowl sounds, voluntary guarding Hosp A/P (1) Atrial fibrillation with RVR Code(s): I48.91 - UNSPECIFIED ATRIAL FIBRILLATION Status: Acute (2) Chronic kidney disease, stage 3 Code(s): N18.3 - CHRONIC KIDNEY DISEASE, STAGE 3 (MODERATE) Status: Chronic (3) CAD (coronary artery disease) Code(s): I25.10 - ATHSCL HEART DISEASE OF [place] CORONARY ARTERY W/O ANG PCTRS Status: Chronic Qualifiers: Coronary Disease-Associated Artery/Lesion type: [place] artery [place] vs. transplanted heart: [place] heart Associated angina: with stable angina Qualified Code(s): I25.118 - Atherosclerotic heart disease of [place] coronary artery with other forms of angina pectoris (4) DM type 2 (diabetes mellitus, type 2) Status: Chronic Qualifiers: Diabetes mellitus director digital strategy insulin use: with director digital strategy use Diabetes mellitus complication status: with kidney complications Diabetes mellitus complication detail: with chronic kidney disease Chronic kidney disease stage : stage 3 (moderate) Qualified Code(s): E11.22 - Type 2 diabetes mellitus with diabetic chronic kidney disease; N18.3 - Chronic kidney disease, stage 3 ( moderate); Z79.4 - alf (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 of insulin (5) HTN (hypertension) Code(s): I10 - ESSENTIAL (PRIMARY) HYPERTENSION Status: Chronic Qualifiers: Hypertension type: essential hypertension (6) Morbid obesity with BMI of 40.0-44.9, adult Code(s): E66.01 - MORBID (SEVERE) OBESITY DUE TO EXCESS CALORIES; Z68.41 - BODY MASS INDEX (BMI) 40.0-44.9, ADULT Status: Chronic - Plan will start her on AC in addition to her brilinta and asa. cardiology consulted for her afib. she is on Cardizem drip. will continue her home medication. 03/20 pt's blood sugar was low will hold lantus and start her on d10. pt to undergo egd/colonoscopy in am.
[2019-03-20 17:25] LABS: #Eosinphils 0.2 thou/uL (0.0-0.7); #Lymphocytes 0.7 thou/uL (1.20-3.40); #Monocytes 0.3 thou/uL (0.11-0.59); #Neutrophils 3.8 thou/uL (1.40-6.50); %Basophils 0.6 % (0.0-1.0); %Eosinophils 4.5 % (0.0-10.0); %Lymphocytes 13.8 % (21.0-51.0); %Monocytes 5.8 % (0.0-10.0); %Neutrophils 75.2 % (42.0-75.0); Hemoglobin 8.2 g/dL (12.0-16.0); Mean Corpuscular HGB CONC 32.6 g/dL (32.0-36.0); Mean Corpuscular Hemoglobin 27.1 pg (27.0-31.0); Mean Platelet Volume 8.9 fL (7.4-10.4); Platelet Count 196 thou/uL (130-400); RBC Distribution Width 14.2 % (11.5-14.5); Red Blood Cell (RBC) Count 3.03 mill/uL (4.20-5.40)
[2019-03-20] MEDS: GoLYTELY 4,000 ml Bottle PO SCH (17:26)
[2019-03-20] MEDS: Benzonatate 100 MG CAP PO PRN (17:26)
[2019-03-20] MEDS: Tamsulosin HCl 0.4 MG CAP PO SCH (20:56)
[2019-03-20] MEDS: tiZANidine HCl 4 MG TAB PO SCH (20:57)
[2019-03-21] MEDS: Levothyroxine Sodium 50 MCG TAB PO SCH (05:31)
[2019-03-21] MEDS: GoLYTELY 4,000 ml Bottle PO SCH (05:31)
[2019-03-21] MEDS: Pregabalin 50 MG CAP PO SCH ×2 (08:30→20:04)
[2019-03-21] MEDS: Escitalopram Oxalate 20 mg Tablet PO SCH (08:31)
[2019-03-21] MEDS: Aspirin Chewable 81 MG TAB PO SCH (08:31)
[2019-03-21] MEDS: Clopidogrel Bisulfate 75 MG TAB PO SCH (08:31)
[2019-03-21] MEDS: Atorvastatin Calcium 40 MG TAB PO SCH (08:31)
[2019-03-21] MEDS: ALPRAZolam 1 MG TAB PO PRN ×2 (08:33→20:03)
[2019-03-21] MEDS: Benzonatate 100 MG CAP PO PRN (08:33)
--- NOTE | 2019-03-21 10:13 | PRG ---
DATE OF SERVICE: 03/21/2019 SUBJECTIVE: A 63-year-old female, being seen for acute kidney injury. The patient denied any nausea, vomiting, or chest pain. OBJECTIVE: GENERAL: The patient is awake and alert. VITAL SIGNS: Afebrile, pulse 72, breathing 16, blood pressure 142/67. GENERAL APPEARANCE AND MENTAL STATUS: Fair. HEAD/NECK: Normocephalic. Atraumatic. EYES: EOMI. No deformity. EARS: Clear. No ulcers. NOSE: Intact. No lesions. MOUTH: Clear. No discharge. THROAT: Clear. No exudate. LUNGS: Clear. No crackles. CARDIAC: S1, S2. No rub. ABDOMEN: Benign. Bowel sounds positive. GENITALIA/RECTUM: Howard absent. BACK/EXTREMITIES: Edema 0+. NEUROLOGICAL: Alert and motor intact. SKIN: LYMPHATICS: LABORATORY DATA: Reviewed. Today's labs are pending. ASSESSMENT AND PLAN: 1. Chronic kidney disease, stage 4, stable. 2. Acute kidney injury due to acute tubular necrosis, stable. 3. Hypertension, stable. 4. Anemia, stable. 5. Medication based on GFR, appropriate. Job ID: [id number]
[2019-03-21 10:23] LABS: Anion Gap 13 mmol/L (10-20); BUN (Urea Nitrogen) 34 mg/dL (9.8-20.1); Calc. Creatinine Clearance 52 mL/min (70-130); Calcium 9.1 mg/dL (7.8-10.44); Carbon Dioxide 27 mmol/L (23-31); Chloride 102 mmol/L (98-107); Estimated GFR-MDRD 32; Glucose 170 mg/dL (80-115); Potassium 3.7 mmol/L (3.5-5.1); Sodium 138 mmol/L (136-145)
[2019-03-21] MEDS: Insulin Glargine 20 UNITS in Pre-Filled Syringe 1 EACH SC SCH (10:28)
[2019-03-21] MEDS ORDERED: Furosemide 40 MG/4 ML VIAL SLOW IVP SCH (11:30)
[2019-03-21 12:36] LABS: Hemoglobin 8.5 g/dL (12.0-16.0)
--- NOTE | 2019-03-21 15:40 | PDOC.CPN ---
- Subjective Date: 03/21/19 Time: 15:38 Interval history: She is SOB. She has a lot more wheezing. Her creatinine has normalized. - Review of Systems General: denies: fever/chills, weight/appetite/sleep changes, night sweats, fatigue Respiratory: reports: cough, congestion, shortness of breath. denies: exercise intolerance Cardiovascular: denies: chest pain, palpitation, edema, paroxysmal nocturnal dyspnea, orthopnea Gastrointestinal: denies: nausea, vomiting, diarrhea, constipation, abd pain, GI bleeding Musculoskeletal: denies: pain, tenderness, stiffness, swelling, arthritis/ arthralgias Neurological: denies: numbness, syncope, seizure, weakness - Objective Allergies/Adverse Reactions: Allergies Allergy/AdvReac Type Severity Reaction Status Date / Time latex Allergy Verified 01/24/19 22:40 meperidine [From Demerol] Allergy Verified 01/24/19 22:40 morphine Allergy Verified 01/24/19 22:40 Visit Medications: Current Medications Albuterol/Ipratropium (Duoneb) 3 ml NEB [id number] [facility] Last Admin: 03/21/19 14:11 Dose: 3 ml Alprazolam (Xanax) 1 mg PO TID PRN PRN Reason: anxiety Last Admin: 03/21/19 08:33 Dose: 1 mg Aspirin (Aspirin Chewable) 81 mg PO DAILY [facility] Last Admin: 03/21/19 08:31 Dose: Not Given Atorvastatin Calcium (Lipitor) 40 mg PO DAILY [facility] Last Admin: 03/21/19 08:31 Dose: 40 mg Benzonatate (Tessalon) 100 mg PO TIDPRN PRN PRN Reason: Cough Last Admin: 03/21/19 08:33 Dose: 100 mg Clopidogrel Bisulfate (Plavix) 75 mg PO DAILY [facility] Last Admin: 03/21/19 08:31 Dose: Not Given Escitalopram Oxalate (Lexapro) 20 mg PO DAILY [facility] Last Admin: 03/21/19 08:31 Dose: 20 mg Guaifenesin (Organ-I Nr) 200 mg PO Q4H PRN PRN Reason: Congestion Last Admin: 03/18/19 21:08 Dose: 200 mg Insulin Glargine 60 units/ (Miscellaneous Medication) 0.6 mls @ 0 mls/hr SC HS [facility] Last Admin: 03/19/19 20:39 Dose: 0.6 mls Insulin Glargine 20 units/ (Miscellaneous Medication) 0.2 mls @ 0 mls/hr SC QAM [facility] Last Admin: 03/21/19 10:28 Dose: Not Given Levothyroxine Sodium (Synthroid) 50 mcg PO 0600 [facility] Last Admin: 03/21/19 05:31 Dose: 50 mcg Pregabalin (Lyrica) 50 mg PO BID [facility] Last Admin: 03/21/19 08:30 Dose: 50 mg Senna/Docusate Sodium (Senokot S) 2 tab PO BID PRN PRN Reason: Constipation Sodium Chloride (Flush - Normal Saline) 10 ml IVF Q12HR PRN PRN Reason: Saline Flush Sodium Chloride (Flush - Normal Saline) 10 ml IVF PRN PRN PRN Reason: Saline Flush Tamsulosin HCl (Flomax) 0.4 mg PO [facility] Last Admin: 03/20/19 20:56 Dose: 0.4 mg Tizanidine HCl (Zanaflex) 4 mg PO [facility] Last Admin: 03/20/19 20:57 Dose: 4 mg Tramadol HCl (Ultram) 50 mg PO Q6H PRN PRN Reason: Pain Last Admin: 03/20/19 17:47 Dose: 50 mg Vital Signs & Weight: Vital Signs Temp Pulse Resp BP Pulse Ox 03/21/19 14:11 88 16 99 03/21/19 11:55 91 18 134/62 96 03/21/19 10:23 95 14 100 03/21/19 07:59 93 16 142/67 H 96 03/21/19 07:40 98 03/21/19 06:34 93 18 100 03/21/19 03:58 97.6 F 91 20 166/69 H 99 Weight 201 lb 1.6 oz - CHADS-VASc Congestive heart failure: 1 Hypertension: 1 Diabetes mellitus: 1 Female: 1 Risk Score: 4 - Quality Measures Condition: Atrial Fibrillation/Flutter (hx or current) CV meds: Beta [place]: Yes, ANABELL/ARB: Yes, Statin: Yes, ASA: Yes, Plavix/Effient/ Brilinta: Yes, Anticoagulant: No (Due to anemia) - Medication Contraindications No Anticoagulant reason: Medical contraindication - Physical Exam General: alert & oriented x3 HEENT: mucus membranes moist Neck: supple neck, midline trachea Cardiac: no murmur, regular rate, regular rhythm Lungs: wheezes Neuro: grossly intact, coordination normal Abdomen: active bowel sounds, soft, non-tender Skin: clear Musculoskeletal: normal range of motion - Labs Result Diagrams: 03/21/19 12:24 03/21/19 09:29 Troponin/CKMB CK-MB (CK-2) 0.8 ng/mL (0-6.6) 03/17/19 05:00 Troponin I 0.044 ng/mL (< 0.028) H 03/17/19 05:00 - Telemetry Sinus rhythms and dysrhythmias: sinus rhythm - Assessment/Plan Assessment/Plan: 1. Afib, back in sinus. 2. CAD, stable, no ACS. 3. CKD stage III - IV 4. Ischemic CM EF at 40-45% 5. Acute on chronic systolic heart failure. 6. Anemia PLAN: - Creatinine normalized, plan to do LHC to intervene on RCA in 2-4 weeks. - Awaiting GI evaluation for anemia. - POOJA to her mid LAD, cannot stop Plavix for now. - CHADS VASC score of 4. Would benefit from full anticoagulation. Will not start until EGD/colonoscopy is done. Would give blood transfusion x 1 unit to try to get numbers above 8 at least and then challenge with full dose Lovenox first, daily dosing due to renal function.
[2019-03-21] MEDS ORDERED: Promethazine HCl 25 MG/ML VIAL IM PRN (18:12)
[2019-03-21] MEDS ORDERED: Ondansetron HCl/PF 4 MG/2 ML Vial IVP PRN (18:12)
[2019-03-21] MEDS ORDERED: Promethazine HCl 25 MG/ML VIAL SLOW IVP PRN (18:12)
--- NOTE | 2019-03-21 19:02 | PDOC.HOSPP ---
- Subjective Encounter Date: 03/21/19 Encounter Time: 08:45 Subjective: pt's hh is low stable. she is going for egd/colonoscopy today. will given her one dose of lasix and start her on steroids. - Objective Vital Signs & Weight: Vital Signs (12 hours) Temp Pulse Resp BP Pulse Ox 03/21/19 15:49 98.5 F 99 20 164/69 H 98 03/21/19 14:11 88 16 99 03/21/19 11:55 91 18 134/62 96 03/21/19 10:23 95 14 100 03/21/19 07:59 93 16 142/67 H 96 03/21/19 07:40 98 Weight Weight 201 lb 1.6 oz I&O: 03/20/19 03/21/19 03/22/19 06:59 06:59 06:59 Intake Total 480 34018 1480 Output Total 4300 Balance 480 6882 1480 Result Diagrams: 03/23/19 04:07 03/23/19 04:07 Additional Labs: Accuchecks 03/21/19 03/21/19 03/21/19 15:54 10:48 09:55 POC Glucose 212 H 256 H 196 H 03/21/19 03/20/19 05:51 20:25 POC Glucose 155 H 205 H Hospitalist ROS - Review of Systems Respiratory: denies: cough, dry, shortness of breath, hemoptysis, SOB with excertion, pleuritic pain, sputum, wheezing, other Cardiovascular: denies: chest pain, palpitations, orthopnea, paroxysmal noc. dyspnea, edema, light headedness, other Gastrointestinal: denies: nausea, vomiting, abdominal pain, diarrhea, constipation, melena, hematochezia, other - Medication Medications: Active Medications Generic Name Dose Route Start Last Admin Trade Name Freq PRN Reason Stop Dose Admin Albuterol/Ipratropium 3 ml 03/17/19 06:30 03/21/19 14:11 Duoneb NEB 3 ml [id number] CECILIA Administration Alprazolam 1 mg 03/18/19 14:10 03/21/19 08:33 Xanax PO 1 mg TID PRN Administration anxiety Aspirin 81 mg 03/17/19 09:00 03/21/19 08:31 Aspirin Chewable PO Not Given DAILY CECILIA Atorvastatin Calcium 40 mg 03/17/19 09:00 03/21/19 08:31 Lipitor PO 40 mg DAILY CECILIA Administration Benzonatate 100 mg 03/17/19 02:50 03/21/19 08:33 Tessalon PO 100 mg TIDPRN PRN Administration Cough Clopidogrel Bisulfate 75 mg 03/20/19 09:00 03/21/19 08:31 Plavix PO Not Given DAILY CECILIA Escitalopram Oxalate 20 mg 03/17/19 09:00 03/21/19 08:31 Lexapro PO 20 mg DAILY CECILIA Administration Guaifenesin 200 mg 03/17/19 02:49 03/18/19 21:08 Organ-I Nr PO 200 mg Q4H PRN Administration Congestion Insulin Glargine 60 units/ 0.6 mls @ 0 mls/hr 03/17/19 21:00 03/19/19 20:39 Miscellaneous Medication SC 0.6 mls HS CECILIA Administration Insulin Glargine 20 units/ 0.2 mls @ 0 mls/hr 03/18/19 09:00 03/21/19 10:28 Miscellaneous Medication SC Not Given QAM [facility] Levothyroxine Sodium 50 mcg 03/17/19 06:00 03/21/19 05:31 Synthroid PO 50 mcg 0600 CECILIA Administration Pregabalin 50 mg 03/19/19 09:00 03/21/19 08:30 Lyrica PO 50 mg BID CECILIA Administration Tamsulosin HCl 0.4 mg 03/17/19 21:00 03/20/19 20:56 Flomax PO 0.4 mg HS CECILIA Administration Tizanidine HCl 4 mg 03/17/19 21:00 03/20/19 20:57 Zanaflex PO 4 mg HS CECILIA Administration Tramadol HCl 50 mg 03/19/19 10:49 03/20/19 17:47 Ultram PO 50 mg Q6H PRN Administration Pain - Exam ENT: negative: normocephalic atraumatic, no oropharyngeal lesions, moist mucosa , dry oral mucosa Neck: negative: supple, symmetric, no JVD, no thyromegaly, no lymphadenopathy, no carotid bruit, JVD Heart: negative: RRR, no murmur, no gallops, no rubs, normal peripheral pulses, irregular, diminshed peripheral pulses, murmur present, II/IV, III/IV Respiratory: rhonchi Hosp A/P (1) Atrial fibrillation with RVR Code(s): I48.91 - UNSPECIFIED ATRIAL FIBRILLATION Status: Acute (2) Chronic kidney disease, stage 3 Code(s): N18.3 - CHRONIC KIDNEY DISEASE, STAGE 3 (MODERATE) Status: Chronic (3) CAD (coronary artery disease) Code(s): I25.10 - ATHSCL HEART DISEASE OF [place] CORONARY ARTERY W/O ANG PCTRS Status: Chronic Qualifiers: Coronary Disease-Associated Artery/Lesion type: [place] artery [place] vs. transplanted heart: [place] heart Associated angina: with stable angina Qualified Code(s): I25.118 - Atherosclerotic heart disease of [place] coronary artery with other forms of angina pectoris (4) DM type 2 (diabetes mellitus, type 2) Status: Chronic Qualifiers: Diabetes mellitus halfway insulin use: with halfway use Diabetes mellitus complication status: with kidney complications Diabetes mellitus complication detail: with chronic kidney disease Chronic kidney disease stage : stage 3 (moderate) Qualified Code(s): E11.22 - Type 2 diabetes mellitus with diabetic chronic kidney disease; N18.3 - Chronic kidney disease, stage 3 ( moderate); Z79.4 - correction (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 of insulin (5) HTN (hypertension) Code(s): I10 - ESSENTIAL (PRIMARY) HYPERTENSION Status: Chronic Qualifiers: Hypertension type: essential hypertension Qualified Code(s): I10 - Essential (primary) hypertension (6) Morbid obesity with BMI of 40.0-44.9, adult Code(s): E66.01 - MORBID (SEVERE) OBESITY DUE TO EXCESS CALORIES; Z68.41 - BODY MASS INDEX (BMI) 40.0-44.9, ADULT Status: Chronic - Plan will start her on AC in addition to her brilinta and asa. cardiology consulted for her afib. she is on Cardizem drip. will continue her home medication. 03/20 pt's blood sugar was low will hold lantus and start her on d10. pt to undergo egd/colonoscopy in am. 03/21 pt going for colonoscopy today and has jay will give her lasix x1 now
[2019-03-21] MEDS: tiZANidine HCl 4 MG TAB PO SCH (20:04)
[2019-03-21] MEDS: Tamsulosin HCl 0.4 MG CAP PO SCH (20:04)
[2019-03-21] MEDS: Insulin Glargine 60 UNITS in Pre-Filled Syringe 1 EACH SC SCH (23:22)
--- NOTE | 2019-03-22 00:44 | OP ---
DATE OF PROCEDURE: 03/21/2019 PROCEDURE: Esophagogastroduodenoscopy and colonoscopy. PREOPERATIVE DIAGNOSIS: Anemia of undetermined etiology. Her hemoglobin has dropped and she has been on anti-platelet therapy. However, there has been no overt bleeding. Cardiology has recently placed a coronary stent and anti-platelet therapy cannot be held. In fact, the patient has requirements for full anticoagulation, which Cardiology has recommended if there is no obvious bleeding source identified. EGD and colonoscopy were set up by Dr. Pena for today to evaluate for GI source for her anemia. The plan is to start anticoagulation if no source was seen. Dr. Pena state that he did not think biopsies should be done during this procedure due to the ongoing need for escalation of antiplatelets and anti-coagulation. DESCRIPTION OF PROCEDURE: Informed consent was obtained from the patient. She was sedated with total intravenous anesthesia. A bite block was placed and the endoscope was advanced easily to the second portion of the duodenum. The esophagus was normal. The GE junction was normal. The stomach was normal including retroflexed views. The pylorus and first and second portions of the duodenum were normal. Air was suctioned from the stomach. The patient was turned around. Rectal exam was performed and was normal. The colonoscope was advanced to the terminal ileum without difficulty. The mucosa of the terminal ileum was normal. The ileocecal valve and appendiceal orifice were clearly identified. The preparation quality was good. There was mild diverticulosis in the sigmoid and descending colon. There was a single 5 to 6 mm polyp in the rectum which was 5 cm proximal to the anal verge. This polyp was not removed today. Retroflexed views in the rectum were unremarkable. IMPRESSION: 1. Normal EGD. 2. Mild diverticulosis in the sigmoid and descending colon. 3. 5 to 6 mm polyp in the rectum which was 5 cm above the anal verge, this was not removed today. 4. No bleeding source was identified by upper or lower endoscopy. RECOMMENDATIONS: 1. Repeat colonoscopy in 6 months to a year to remove the rectal polyp. Alternatively, flex-sig or proctoscopy could be done for that. 2. There is no contraindication for anticoagulation identified by endoscopy. 3. She has a strong family history of colon cancer including her father and aunt and a grandparent. 4. If she shows signs of future overt bleeding, then consider capsule endoscopy to evaluate for a small bowel bleeding source. 5. I will sign off for now. Please call if GI can be of assistance. Job ID: [id number]
[2019-03-22] MEDS: Benzonatate 100 MG CAP PO PRN (02:49)
[2019-03-22] MEDS ORDERED: guaiFENesin/Dextromethorphan 10 ML UDCUP PO PRN (03:57)
[2019-03-22] MEDS: Levothyroxine Sodium 50 MCG TAB PO SCH (05:29)
[2019-03-22] MEDS: Clopidogrel Bisulfate 75 MG TAB PO SCH (08:43)
[2019-03-22] MEDS: Pregabalin 50 MG CAP PO SCH ×2 (08:43→19:44)
[2019-03-22] MEDS: Escitalopram Oxalate 20 mg Tablet PO SCH (08:43)
[2019-03-22] MEDS: Atorvastatin Calcium 40 MG TAB PO SCH (08:43)
[2019-03-22] MEDS: Aspirin Chewable 81 MG TAB PO SCH (08:43)
[2019-03-22] MEDS: Insulin Glargine 20 UNITS in Pre-Filled Syringe 1 EACH SC SCH (08:44)
[2019-03-22] MEDS ORDERED: Enoxaparin Sodium 100 MG/ML SYRINGE SC SCH ×2 (09:00→11:30)
[2019-03-22] MEDS: ALPRAZolam 1 MG TAB PO PRN ×2 (09:16→16:19)
[2019-03-22 10:14] LABS: #Eosinphils 0.2 thou/uL (0.0-0.7); #Lymphocytes 0.9 thou/uL (1.20-3.40); #Monocytes 0.3 thou/uL (0.11-0.59); #Neutrophils 3.9 thou/uL (1.40-6.50); %Basophils 0.8 % (0.0-1.0); %Eosinophils 4.3 % (0.0-10.0); %Monocytes 5.9 % (0.0-10.0); Hemoglobin 8.1 g/dL (12.0-16.0); Mean Corpuscular HGB CONC 32.9 g/dL (32.0-36.0); Mean Corpuscular Hemoglobin 27.3 pg (27.0-31.0); Mean Platelet Volume 8.8 fL (7.4-10.4); Platelet Count 216 thou/uL (130-400); RBC Distribution Width 14.1 % (11.5-14.5); Red Blood Cell (RBC) Count 2.96 mill/uL (4.20-5.40); White Blood Cell (WBC) Count 5.4 thou/uL (4.8-10.8)
[2019-03-22] MEDS ORDERED: Furosemide 40 MG/4 ML VIAL SLOW IVP SCH (10:45)
[2019-03-22] MEDS ORDERED: methylPREDNISolone Sod Succ 40 MG VIAL IVP SCH (10:45)
[2019-03-22 10:54] LABS: Anion Gap 12 mmol/L (10-20); BUN (Urea Nitrogen) 31 mg/dL (9.8-20.1); Calc. Creatinine Clearance 51 mL/min (70-130); Calcium 9.4 mg/dL (7.8-10.44); Carbon Dioxide 30 mmol/L (23-31); Chloride 100 mmol/L (98-107); Estimated GFR-MDRD 30; Glucose 204 mg/dL (80-115); Potassium 4.3 mmol/L (3.5-5.1); Sodium 138 mmol/L (136-145)
--- NOTE | 2019-03-22 11:00 | PDOC.CPN ---
- Subjective Date: 03/22/19 Time: 10:00 Interval history: Patient with c/o SOB and orthopnea. +7L yesterday. Remains in SR 90-100bpm. - Review of Systems General: denies: fever/chills, weight/appetite/sleep changes, night sweats, fatigue Respiratory: reports: cough, congestion, shortness of breath Cardiovascular: reports: paroxysmal nocturnal dyspnea, orthopnea Gastrointestinal: denies: nausea, vomiting, diarrhea, constipation, abd pain, GI bleeding Musculoskeletal: denies: pain, tenderness, arthritis/arthralgias Neurological: denies: numbness, syncope, seizure, weakness - Objective Allergies/Adverse Reactions: Allergies Allergy/AdvReac Type Severity Reaction Status Date / Time latex Allergy Verified 01/24/19 22:40 meperidine [From Demerol] Allergy Verified 01/24/19 22:40 morphine Allergy Verified 01/24/19 22:40 Visit Medications: Current Medications Albuterol/Ipratropium (Duoneb) 3 ml NEB [id number] [facility] Last Admin: 03/22/19 10:28 Dose: 3 ml Alprazolam (Xanax) 1 mg PO TID PRN PRN Reason: anxiety Last Admin: 03/22/19 09:16 Dose: 1 mg Aspirin (Aspirin Chewable) 81 mg PO DAILY [facility] Last Admin: 03/22/19 08:43 Dose: 81 mg Atorvastatin Calcium (Lipitor) 40 mg PO DAILY [facility] Last Admin: 03/22/19 08:43 Dose: 40 mg Benzonatate (Tessalon) 100 mg PO TIDPRN PRN PRN Reason: Cough Last Admin: 03/22/19 02:49 Dose: 100 mg Clopidogrel Bisulfate (Plavix) 75 mg PO DAILY [facility] Last Admin: 03/22/19 08:43 Dose: 75 mg Escitalopram Oxalate (Lexapro) 20 mg PO DAILY [facility] Last Admin: 03/22/19 08:43 Dose: 20 mg Famotidine (Pepcid) 20 mg PO BID [facility] Furosemide (Lasix) 40 mg SLOW IVP NOW [facility] Stop: 03/22/19 12:45 Last Admin: 03/22/19 10:58 Dose: 40 mg Guaifenesin (Organ-I Nr) 200 mg PO Q4H PRN PRN Reason: Congestion Last Admin: 03/18/19 21:08 Dose: 200 mg Guaifenesin (Robitussin) 100 mg PO Q4H PRN PRN Reason: Cough Guaifenesin/Dextromethorphan (Robitussin Dm) 10 ml PO Q6H PRN PRN Reason: Cough Last Admin: 03/22/19 04:09 Dose: 10 ml Insulin Glargine 60 units/ (Miscellaneous Medication) 0.6 mls @ 0 mls/hr SC HS [facility] Last Admin: 03/21/19 23:22 Dose: Not Given Insulin Glargine 20 units/ (Miscellaneous Medication) 0.2 mls @ 0 mls/hr SC QAM [facility] Last Admin: 03/22/19 08:44 Dose: 0.2 mls Levothyroxine Sodium (Synthroid) 50 mcg PO 0600 [facility] Last Admin: 03/22/19 05:29 Dose: 50 mcg Methylprednisolone Sodium Succinate (Solu-Medrol) 40 mg IVP DAILY [facility] Methylprednisolone Sodium Succinate (Solu-Medrol) 40 mg IVP NOW [facility] Stop: 03/22/19 12:45 Last Admin: 03/22/19 10:57 Dose: 40 mg Pregabalin (Lyrica) 50 mg PO BID [facility] Last Admin: 03/22/19 08:43 Dose: 50 mg Senna/Docusate Sodium (Senokot S) 2 tab PO BID PRN PRN Reason: Constipation Sodium Chloride (Flush - Normal Saline) 10 ml IVF Q12HR PRN PRN Reason: Saline Flush Sodium Chloride (Flush - Normal Saline) 10 ml IVF PRN PRN PRN Reason: Saline Flush Tamsulosin HCl (Flomax) 0.4 mg PO [facility] Last Admin: 03/21/19 20:04 Dose: 0.4 mg Tizanidine HCl (Zanaflex) 4 mg PO [facility] Last Admin: 03/21/19 20:04 Dose: 4 mg Tramadol HCl (Ultram) 50 mg PO Q6H PRN PRN Reason: Pain Last Admin: 03/20/19 17:47 Dose: 50 mg Vital Signs & Weight: Vital Signs Temp Pulse Resp BP BP Pulse Ox 03/22/19 10:28 95 18 99 03/22/19 07:31 98.5 F 102 H 18 153/67 H 96 03/22/19 06:56 98 14 95 03/22/19 03:25 98 03/22/19 03:22 98.6 F 99 20 180/81 H 96 03/22/19 00:00 96 18 136/64 98 Weight 208 lb 11.2 oz - Quality Measures Condition: Atrial Fibrillation/Flutter (hx or current) CV meds: Beta Eloy: Yes, ANABELL/ARB: Yes, Statin: Yes, ASA: Yes, Plavix/Effient/ Brilinta: Yes, Anticoagulant: No (Due to anemia) - Medication Contraindications No Anticoagulant reason: Medical contraindication - Physical Exam General: alert & oriented x3, no apparent distress HEENT: mucus membranes moist, normocephaly Neck: supple neck, no bruit Cardiac: regular rate and rhythm, no murmur Lungs: normal breath sounds, no rhonchi Neuro: grossly intact Abdomen: unremarkable, non-tender Skin: clear Musculoskeletal: other (in chair) - Labs Result Diagrams: 03/22/19 17:07 03/22/19 17:07 Troponin/CKMB CK-MB (CK-2) 0.8 ng/mL (0-6.6) 03/17/19 05:00 Troponin I 0.044 ng/mL (< 0.028) H 03/17/19 05:00 - Telemetry Sinus rhythms and dysrhythmias: sinus rhythm - Assessment/Plan Assessment/Plan: 1. Paroxysmal aF 2. CAD. 3. CKD stage III 4. Ischemic CM EF at 35-40% 5. Acute on chronic systolic heart failure. 6. Anemia PLAN: Volume overloaded. Will diurese. Plan for C with PCI to RCA in 2-[address] Peter, continue Plavix and needs ACT with elevated CHADsVASc of 4. Cleared from GI standpoint. He wanted to start lovenox first. Will add and follow serial H/H. RG Pt seen and examined Agree with above Pt overloaded May need gently diuresis EGD fairly negative PTCA in 2-4 weeks
[2019-03-22] MEDS: guaiFENesin 200 MG TAB PO PRN ×2 (11:01→16:19)
--- NOTE | 2019-03-22 13:25 | EKG ---
Test Reason : ER INDICATION Blood Pressure : / mmHG Vent. Rate : 093 BPM Atrial Rate : 093 BPM P-R Int : 198 ms QRS Dur : 148 ms QT Int : 434 ms P-R-T Axes : 069 -10 089 degrees QTc Int : 539 ms Normal sinus rhythm Left bundle branch block Abnormal ECG Biatrial enlargement Left ventricular hypertrophy Confirmed by GERARDO MULLINS, OSCAR Barbour ([id number]), food editor JANELL THORNE ([id number]) on 03/22/2019 1:25:01 PM Referred By: Confirmed By:OSCAR CARRILLO MD
--- NOTE | 2019-03-22 13:34 | PRG ---
DATE OF SERVICE: 03/22/2019 SUBJECTIVE: A 63-year-old lady, being seen for acute kidney injury. The patient denied any nausea, vomiting, or chest pain. OBJECTIVE: CONSTITUTIONAL: The patient is awake and alert. VITAL SIGNS: Pulse 75, breathing 16, blood pressure was 133/58. GENERAL APPEARANCE AND MENTAL STATUS: Fair. HEAD/NECK: Normocephalic. Atraumatic. EYES: EOMI. No deformity. EARS: Clear. No ulcers. NOSE: Intact. No lesions. MOUTH: Clear. No discharge. THROAT: Clear. No exudate. LUNGS: Clear. No crackles. CARDIAC: S1, S2. No rub. ABDOMEN: Benign. Bowel sounds positive. GENITALIA/RECTUM: Howard absent. BACK/EXTREMITIES: Edema 0+. NEUROLOGICAL: Alert and motor intact. SKIN: LYMPHATICS: LABORATORY DATA: Reviewed. ASSESSMENT AND PLAN: 1. Chronic kidney disease stage 3, stable. 2. Acute kidney injury due to acute tubular necrosis, improved. 3. Hypertension, stable. 4. Anemia, stable. 5. No indication for dialysis. Job ID: [id number]
[2019-03-22] MEDS ORDERED: Dextrose 50% Abboject 50 ML SYRINGE IVP PRN (17:08)
[2019-03-22] MEDS ORDERED: Dextrose 5% in Water 1,000 ML IV PRN (17:08)
[2019-03-22 17:29] LABS: Hemoglobin 8.2 g/dL (12.0-16.0); Platelet Count 254 thou/uL (130-400)
[2019-03-22] MEDS: HumaLOG 300 UNITS/3 ML VIAL SC PRN ×2 (17:52→21:33)
[2019-03-22] MEDS: tiZANidine HCl 4 MG TAB PO SCH (19:44)
[2019-03-22] MEDS: Tamsulosin HCl 0.4 MG CAP PO SCH (19:44)
[2019-03-22] MEDS: Famotidine 20 MG TAB PO SCH (19:45)
[2019-03-22] MEDS: guaiFENesin 100 MG/5 ML UDCUP PO PRN (20:00)
[2019-03-22] MEDS ORDERED: Dextrose 50% Abboject 50 ML SYRINGE SLOW IVP PRN (21:04)
[2019-03-22] MEDS: Insulin Glargine 60 UNITS in Pre-Filled Syringe 1 EACH SC SCH (21:33)
[2019-03-23] MEDS: guaiFENesin 100 MG/5 ML UDCUP PO PRN (00:06)
[2019-03-23] MEDS ORDERED: Acetaminophen 325 MG TAB PO PRN (00:48)
[2019-03-23] MEDS ORDERED: HumaLOG 300 UNITS/3 ML VIAL SC SCH (01:30)
[2019-03-23] MEDS: ALPRAZolam 1 MG TAB PO PRN ×3 (01:33→21:45)
[2019-03-23] MEDS: Levothyroxine Sodium 50 MCG TAB PO SCH (05:08)
[2019-03-23 05:21] LABS: #Lymphocytes 1.2 thou/uL (1.20-3.40); #Monocytes 0.5 thou/uL (0.11-0.59); %Basophils 0.3 % (0.0-1.0); %Eosinophils 0.4 % (0.0-10.0); %Lymphocytes 21.1 % (21.0-51.0); %Monocytes 8.2 % (0.0-10.0); %Neutrophils 69.8 % (42.0-75.0); Hemoglobin 7.5 g/dL (12.0-16.0); Mean Corpuscular HGB CONC 33.2 g/dL (32.0-36.0); Mean Corpuscular Hemoglobin 27.5 pg (27.0-31.0); Mean Corpuscular Volume 82.6 fL (78.0-98.0); Mean Platelet Volume 9.3 fL (7.4-10.4); Platelet Count 216 thou/uL (130-400); RBC Distribution Width 14.2 % (11.5-14.5); Red Blood Cell (RBC) Count 2.74 mill/uL (4.20-5.40); White Blood Cell (WBC) Count 5.8 thou/uL (4.8-10.8)
[2019-03-23 05:53] LABS: Anion Gap 13 mmol/L (10-20); BUN (Urea Nitrogen) 42 mg/dL (9.8-20.1); Calc. Creatinine Clearance 42 mL/min (70-130); Calcium 9.5 mg/dL (7.8-10.44); Carbon Dioxide 27 mmol/L (23-31); Chloride 100 mmol/L (98-107); Estimated GFR-MDRD 23; Glucose 79 mg/dL (80-115); Potassium 4.1 mmol/L (3.5-5.1); Sodium 136 mmol/L (136-145)
[2019-03-23] MEDS: Furosemide 40 MG/4 ML VIAL SLOW IVP SCH (08:30)
[2019-03-23] MEDS: Enoxaparin Sodium 100 MG/ML SYRINGE SC SCH (08:30)
[2019-03-23] MEDS: Escitalopram Oxalate 20 mg Tablet PO SCH (08:30)
[2019-03-23] MEDS: Clopidogrel Bisulfate 75 MG TAB PO SCH (08:30)
[2019-03-23] MEDS: Atorvastatin Calcium 40 MG TAB PO SCH (08:30)
[2019-03-23] MEDS: Famotidine 20 MG TAB PO SCH (08:30)
[2019-03-23] MEDS: methylPREDNISolone Sod Succ 40 MG VIAL IVP SCH (08:30)
[2019-03-23] MEDS: Aspirin Chewable 81 MG TAB PO SCH (08:30)
[2019-03-23] MEDS: Insulin Glargine 20 UNITS in Pre-Filled Syringe 1 EACH SC SCH (08:31)
[2019-03-23] MEDS: Pregabalin 50 MG CAP PO SCH ×2 (08:42→21:45)
--- NOTE | 2019-03-23 11:21 | PDOC.CPN ---
- Subjective Date: 03/23/19 Time: 11:19 - Review of Systems General: denies: fever/chills, weight/appetite/sleep changes, night sweats, fatigue Respiratory: reports: shortness of breath, exercise intolerance. denies: cough , congestion Gastrointestinal: denies: nausea, vomiting, diarrhea, constipation, abd pain, GI bleeding Musculoskeletal: denies: pain, tenderness, stiffness, swelling, arthritis/ arthralgias Neurological: denies: numbness, syncope, seizure, weakness - Objective Allergies/Adverse Reactions: Allergies Allergy/AdvReac Type Severity Reaction Status Date / Time latex Allergy Verified 01/24/19 22:40 meperidine [From Demerol] Allergy Verified 01/24/19 22:40 morphine Allergy Verified 01/24/19 22:40 Visit Medications: Current Medications Acetaminophen (Tylenol) 650 mg PO Q6H PRN PRN Reason: Fever/Mild Pain Last Admin: 03/23/19 01:33 Dose: 650 mg Albuterol/Ipratropium (Duoneb) 3 ml NEB [id number] [facility] Last Admin: 03/23/19 10:29 Dose: 3 ml Alprazolam (Xanax) 1 mg PO TID PRN PRN Reason: anxiety Last Admin: 03/23/19 09:47 Dose: 1 mg Aspirin (Aspirin Chewable) 81 mg PO DAILY [facility] Last Admin: 03/23/19 08:30 Dose: 81 mg Atorvastatin Calcium (Lipitor) 40 mg PO DAILY [facility] Last Admin: 03/23/19 08:30 Dose: 40 mg Benzonatate (Tessalon) 100 mg PO TIDPRN PRN PRN Reason: Cough Last Admin: 03/22/19 02:49 Dose: 100 mg Clopidogrel Bisulfate (Plavix) 75 mg PO DAILY [facility] Last Admin: 03/23/19 08:30 Dose: 75 mg Dextrose/Water (Dextrose 50%) 25 gm SLOW IVP PRN PRN PRN Reason: Hypoglycemia Enoxaparin Sodium (Lovenox) 100 mg SC 0900 [facility] Last Admin: 03/23/19 08:30 Dose: 100 mg Escitalopram Oxalate (Lexapro) 20 mg PO DAILY [facility] Last Admin: 03/23/19 08:30 Dose: 20 mg Famotidine (Pepcid) 20 mg PO DAILY [facility] Furosemide (Lasix) 40 mg SLOW IVP DAILY [facility] Last Admin: 03/23/19 08:30 Dose: 40 mg Glucagon (Glucagon) 1 mg IM PRN PRN PRN Reason: HYPOGLYCEMIA PROTOCOL Guaifenesin (Organ-I Nr) 200 mg PO Q4H PRN PRN Reason: Congestion Last Admin: 03/22/19 16:19 Dose: 200 mg Guaifenesin (Robitussin Sf) 100 mg PO Q4H PRN PRN Reason: Cough Guaifenesin/Dextromethorphan (Robitussin Dm) 10 ml PO Q6H PRN PRN Reason: Cough Last Admin: 03/22/19 04:09 Dose: 10 ml Insulin Glargine 60 units/ (Miscellaneous Medication) 0.6 mls @ 0 mls/hr SC HS [facility] Last Admin: 03/22/19 21:33 Dose: 0.6 mls Insulin Glargine 20 units/ (Miscellaneous Medication) 0.2 mls @ 0 mls/[facility] Admin: 03/23/19 08:31 Dose: 0.2 mls Dextrose/Water (D5w) 1,000 mls @ 0 mls/hr IV INF PRN PRN Reason: HYPOGLYCEMIA PROTOCOL Insulin Human Lispro (Humalog) 0 units SC .MILD SLIDING SCALE PRN PRN Reason: Mild Correctional Scale Last Admin: 03/22/19 17:52 Dose: 5 units Insulin Human Lispro (Humalog) 0 units SC .BEDTIME SLIDING SC PRN PRN Reason: Bedtime Correctional Scale Last Admin: 03/22/19 21:33 Dose: 5 unit Levothyroxine Sodium (Synthroid) 50 mcg PO 0600 [facility] Last Admin: 03/23/19 05:08 Dose: 50 mcg Methylprednisolone Sodium Succinate (Solu-Medrol) 40 mg IVP DAILY [facility] Last Admin: 03/23/19 08:30 Dose: 40 mg Pregabalin (Lyrica) 50 mg PO BID [facility] Last Admin: 03/23/19 08:42 Dose: 50 mg Senna/Docusate Sodium (Senokot S) 2 tab PO BID PRN PRN Reason: Constipation Sodium Chloride (Flush - Normal Saline) 10 ml IVF Q12HR PRN PRN Reason: Saline Flush Sodium Chloride (Flush - Normal Saline) 10 ml IVF PRN PRN PRN Reason: Saline Flush Tamsulosin HCl (Flomax) 0.4 mg PO HS [facility] Last Admin: 03/22/19 19:44 Dose: 0.4 mg Tizanidine HCl (Zanaflex) 4 mg PO HS [facility] Last Admin: 03/22/19 19:44 Dose: 4 mg Tramadol HCl (Ultram) 50 mg PO Q6H PRN PRN Reason: Pain Last Admin: 03/20/19 17:47 Dose: 50 mg Vital Signs & Weight: Vital Signs Temp Pulse Resp BP BP Pulse Ox 03/23/19 10:29 88 24 H 100 03/23/19 08:20 97.7 F 95 20 117/57 L 97 03/23/19 06:54 87 20 100 03/23/19 04:00 89 16 148/67 H 94 L 03/23/19 01:53 98 24 H 95 03/22/19 23:20 99.6 F 96 20 147/68 H Weight 213 lb - Quality Measures Condition: Atrial Fibrillation/Flutter (hx or current) CV meds: Beta Eloy: Yes, ANABELL/ARB: Yes, Statin: Yes, ASA: Yes, Plavix/Effient/ Brilinta: Yes, Anticoagulant: No (Due to anemia) - Medication Contraindications No Anticoagulant reason: Medical contraindication - Physical Exam General: appears well HEENT: mucus membranes moist Cardiac: irregularly regular Lungs: decreased breath sounds, bibasilar rales Neuro: grossly intact Abdomen: soft - Labs Result Diagrams: 03/23/19 04:07 03/23/19 04:07 Troponin/CKMB CK-MB (CK-2) 0.8 ng/mL (0-6.6) 03/17/19 05:00 Troponin I 0.044 ng/mL (< 0.028) H 03/17/19 05:00 - Assessment/Plan Assessment/Plan: 1. Paroxysmal aF 2. CAD. 3. CKD stage III 4. Ischemic CM EF at 35-40% 5. Acute on chronic systolic heart failure. 6. Anemia PLAN: CHRISTIAN and volume overloaded. Diurese per renal. On lovenox. Monitor counts. Consider change to NOAC tomorrow.
[2019-03-23] MEDS: HumaLOG 300 UNITS/3 ML VIAL SC PRN ×3 (12:39→21:47)
[2019-03-23] MEDS: Diabetic Tussin 200 MG/10 ML UDCUP PO PRN ×2 (12:39→19:21)
--- NOTE | 2019-03-23 13:12 | PRG ---
DATE OF SERVICE: 03/23/2019 SUBJECTIVE: A 63-year-old lady being seen for acute kidney injury. The patient denied any nausea, vomiting, or chest pain. OBJECTIVE: CONSTITUTIONAL: On exam, the patient is awake and alert. VITAL SIGNS: Afebrile, pulse 94, breathing 16, and blood pressure 133/64. GENERAL APPEARANCE AND MENTAL STATUS: Fair. HEAD/NECK: Normocephalic. Atraumatic. EYES: EOMI. No deformity. EARS: Clear. No ulcers. NOSE: Intact. No lesions. MOUTH: Clear. No discharge. THROAT: Clear. No exudate. LUNGS: Clear. No crackles. CARDIAC: S1, S2. No rub. ABDOMEN: Benign. Bowel sounds positive. GENITALIA/RECTUM: Howard absent. BACK/EXTREMITIES: Edema 0+. NEUROLOGICAL: Alert and motor intact. SKIN: LYMPHATICS: LABORATORY DATA: Labs show hemoglobin 7.5. Creatinine 2.1. ASSESSMENT AND PLAN: 1. Chronic kidney disease, stage 4 with acute kidney injury due to acute tubular necrosis and cardiorenal syndrome, stable. 2. Hypertension, stable. 3. Anemia. We would recommend transfusion. 4. Medications based on glomerular filtration rate are appropriate. Job ID: [id number]
--- NOTE | 2019-03-23 14:27 | PDOC.HOSPP ---
- Subjective Encounter Date: 03/23/19 Encounter Time: 10:30 Subjective: pt up in bed feels better today - Objective Vital Signs & Weight: Vital Signs (12 hours) Temp Pulse Resp BP BP Pulse Ox 03/23/19 12:34 97.6 F 94 18 133/64 94 L 03/23/19 10:29 88 24 H 100 03/23/19 08:20 97.7 F 95 20 117/57 L 97 03/23/19 08:00 96 03/23/19 06:54 87 20 100 03/23/19 04:00 89 16 148/67 H 94 L Weight Weight 213 lb I&O: 03/22/19 03/23/19 03/24/19 06:59 06:59 06:59 Intake Total 2130 1370 Output Total 1301 1700 Balance 829 -330 Result Diagrams: 03/23/19 04:07 03/23/19 04:07 Additional Labs: Accuchecks 03/23/19 03/23/19 03/23/19 11:02 08:32 05:16 POC Glucose 321 H 141 H 100 03/22/19 03/22/19 20:11 16:47 POC Glucose 382 H 316 H Hospitalist ROS - Review of Systems Cardiovascular: denies: chest pain, palpitations, orthopnea, paroxysmal noc. dyspnea, edema, light headedness, other Gastrointestinal: denies: nausea, vomiting, abdominal pain, diarrhea, constipation, melena, hematochezia, other - Medication Medications: Active Medications Generic Name Dose Route Start Last Admin Trade Name Freq PRN Reason Stop Dose Admin Acetaminophen 650 mg 03/23/19 00:48 03/23/19 01:33 Tylenol PO 650 mg Q6H PRN Administration Fever/Mild Pain Albuterol/Ipratropium 3 ml 03/17/19 06:30 03/23/19 10:29 Duoneb NEB 3 ml [id number] CECILIA Administration Alprazolam 1 mg 03/18/19 14:10 03/23/19 09:47 Xanax PO 1 mg TID PRN Administration anxiety Aspirin 81 mg 03/17/19 09:00 03/23/19 08:30 Aspirin Chewable PO 81 mg DAILY CECILIA Administration Atorvastatin Calcium 40 mg 03/17/19 09:00 03/23/19 08:30 Lipitor PO 40 mg DAILY CECILIA Administration Benzonatate 100 mg 03/17/19 02:50 03/22/19 02:49 Tessalon PO 100 mg TIDPRN PRN Administration Cough Clopidogrel Bisulfate 75 mg 03/20/19 09:00 03/23/19 08:30 Plavix PO 75 mg DAILY CECILIA Administration Enoxaparin Sodium 100 mg 03/23/19 09:00 03/23/19 08:30 Lovenox SC 100 mg 0900 CECILIA Administration Escitalopram Oxalate 20 mg 03/17/19 09:00 03/23/19 08:30 Lexapro PO 20 mg DAILY CECILIA Administration Furosemide 40 mg 03/23/19 09:00 03/23/19 08:30 Lasix SLOW IVP 40 mg DAILY CECILIA Administration Guaifenesin 200 mg 03/17/19 02:49 03/22/19 16:19 Organ-I Nr PO 200 mg Q4H PRN Administration Congestion Guaifenesin 100 mg 03/23/19 09:54 03/23/19 12:39 Robitussin Sf PO 100 mg Q4H PRN Administration Cough Guaifenesin/Dextromethorphan 10 ml 03/22/19 03:57 03/22/19 04:09 Robitussin Dm PO 10 ml Q6H PRN Administration Cough Insulin Glargine 60 units/ 0.6 mls @ 0 mls/hr 03/17/19 21:00 03/22/19 21:33 Miscellaneous Medication SC 0.6 mls HS CECILIA Administration Insulin Glargine 20 units/ 0.2 mls @ 0 mls/hr 03/18/19 09:00 03/23/19 08:31 Miscellaneous Medication SC 0.2 mls QAM CECILIA Administration Insulin Human Lispro 0 units 03/22/19 17:01 03/23/19 12:39 Humalog SC 5 units .MILD SLIDING SCALE PRN Administration Mild Correctional Scale Insulin Human Lispro 0 units 03/22/19 21:04 03/22/19 21:33 Humalog SC 5 unit .BEDTIME SLIDING SC PRN Administration Bedtime Correctional Scale Levothyroxine Sodium 50 mcg 03/17/19 06:00 03/23/19 05:08 Synthroid PO 50 mcg 0600 CECIILA Administration Methylprednisolone Sodium Succinate 40 mg 03/23/19 09:00 09/15/19 08:30 Solu-Medrol IVP 40 mg DAILY CECILIA Administration Pregabalin 50 mg 03/19/19 09:00 03/23/19 08:42 Lyrica PO 50 mg BID CECILIA Administration Tamsulosin HCl 0.4 mg 03/17/19 21:00 03/22/19 19:44 Flomax PO 0.4 mg HS CECILIA Administration Tizanidine HCl 4 mg 03/17/19 21:00 03/22/19 19:44 Zanaflex PO 4 mg HS CECILIA Administration Tramadol HCl 50 mg 03/19/19 10:49 03/20/19 17:47 Ultram PO 50 mg Q6H PRN Administration Pain - Exam Neck: negative: supple, symmetric, no JVD, no thyromegaly, no lymphadenopathy, no carotid bruit, JVD Heart: negative: RRR, no murmur, no gallops, no rubs, normal peripheral pulses, irregular, diminshed peripheral pulses, murmur present, II/IV, III/IV Respiratory: negative: CTAB, no wheezes, no rales, no ronchi, normal chest expansion, no tachypnea, normal percussion, rales, rhonchi, tachypneic, wheezes Gastrointestinal: negative: soft, non-tender, non-distended, normal bowel sounds , no palpable masses, no hepatomegaly, no splenomegaly, no bruit, no guarding, no rigidity, tender to palpation, distended, diminished bowl sounds, voluntary guarding Hosp A/P (1) Atrial fibrillation with RVR Code(s): I48.91 - UNSPECIFIED ATRIAL FIBRILLATION Status: Acute (2) Chronic kidney disease, stage 3 Code(s): N18.3 - CHRONIC KIDNEY DISEASE, STAGE 3 (MODERATE) Status: Chronic (3) CAD (coronary artery disease) Code(s): I25.10 - ATHSCL HEART DISEASE OF [place] CORONARY ARTERY W/O ANG PCTRS Status: Chronic Qualifiers: Coronary Disease-Associated Artery/Lesion type: [place] artery [place] vs. transplanted heart: [place] heart Associated angina: with stable angina Qualified Code(s): I25.118 - Atherosclerotic heart disease of [place] coronary artery with other forms of angina pectoris (4) DM type 2 (diabetes mellitus, type 2) Status: Chronic Qualifiers: Diabetes mellitus senior care insulin use: with senior care use Diabetes mellitus complication status: with kidney complications Diabetes mellitus complication detail: with chronic kidney disease Chronic kidney disease stage : stage 3 (moderate) Qualified Code(s): E11.22 - Type 2 diabetes mellitus with diabetic chronic kidney disease; N18.3 - Chronic kidney disease, stage 3 ( moderate); Z79.4 - [place] (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 of insulin (5) HTN (hypertension) Code(s): I10 - ESSENTIAL (PRIMARY) HYPERTENSION Status: Chronic Qualifiers: Hypertension type: essential hypertension Qualified Code(s): I10 - Essential (primary) hypertension (6) Morbid obesity with BMI of 40.0-44.9, adult Code(s): E66.01 - MORBID (SEVERE) OBESITY DUE TO EXCESS CALORIES; Z68.41 - BODY MASS INDEX (BMI) 40.0-44.9, ADULT Status: Chronic - Plan will start her on AC in addition to her brilinta and asa. cardiology consulted for her afib. she is on Cardizem drip. will continue her home medication. 03/20 pt's blood sugar was low will hold lantus and start her on d10. pt to undergo egd/colonoscopy in am. 03/21 pt going for colonoscopy today and has rhonchi will give her lasix x1 now 03/22 will add solumedrol and lasix to her current tx since she does have some rhonchi. 03/23 pt up in bed feels well, her hh is low compared to yesterday will monitor for one more day.
--- NOTE | 2019-03-23 14:30 | PDOC.HOSPP ---
- Subjective Encounter Date: 03/22/19 Encounter Time: 11:30 Subjective: pt up in bed feels a little sob - Objective Vital Signs & Weight: Vital Signs (12 hours) Temp Pulse Resp BP BP Pulse Ox 03/23/19 12:34 97.6 F 94 18 133/64 94 L 03/23/19 10:29 88 24 H 100 03/23/19 08:20 97.7 F 95 20 117/57 L 97 03/23/19 08:00 96 03/23/19 06:54 87 20 100 03/23/19 04:00 89 16 148/67 H 94 L Weight Weight 213 lb I&O: 03/22/19 03/23/19 03/24/19 06:59 06:59 06:59 Intake Total 2130 1370 Output Total 1301 1700 Balance 829 -330 Result Diagrams: 03/23/19 04:07 03/23/19 04:07 Additional Labs: Accuchecks 03/23/19 03/23/19 03/23/19 11:02 08:32 05:16 POC Glucose 321 H 141 H 100 03/22/19 03/22/19 20:11 16:47 POC Glucose 382 H 316 H Hospitalist ROS - Review of Systems Respiratory: reports: shortness of breath Cardiovascular: denies: chest pain, palpitations, orthopnea, paroxysmal noc. dyspnea, edema, light headedness, other Gastrointestinal: denies: nausea, vomiting, abdominal pain, diarrhea, constipation, melena, hematochezia, other - Medication Medications: Active Medications Generic Name Dose Route Start Last Admin Trade Name Freq PRN Reason Stop Dose Admin Acetaminophen 650 mg 03/23/19 00:48 03/23/19 01:33 Tylenol PO 650 mg Q6H PRN Administration Fever/Mild Pain Albuterol/Ipratropium 3 ml 03/17/19 06:30 03/23/19 10:29 Duoneb NEB 3 ml [id number] CECILIA Administration Alprazolam 1 mg 03/18/19 14:10 03/23/19 09:47 Xanax PO 1 mg TID PRN Administration anxiety Aspirin 81 mg 03/17/19 09:00 03/23/19 08:30 Aspirin Chewable PO 81 mg DAILY CECILIA Administration Atorvastatin Calcium 40 mg 03/17/19 09:00 03/23/19 08:30 Lipitor PO 40 mg DAILY CECILIA Administration Benzonatate 100 mg 03/17/19 02:50 03/22/19 02:49 Tessalon PO 100 mg TIDPRN PRN Administration Cough Clopidogrel Bisulfate 75 mg 03/20/19 09:00 03/23/19 08:30 Plavix PO 75 mg DAILY CECILIA Administration Enoxaparin Sodium 100 mg 03/23/19 09:00 03/23/19 08:30 Lovenox SC 100 mg 0900 CECILIA Administration Escitalopram Oxalate 20 mg 03/17/19 09:00 03/23/19 08:30 Lexapro PO 20 mg DAILY CECILIA Administration Furosemide 40 mg 03/23/19 09:00 03/23/19 08:30 Lasix SLOW IVP 40 mg DAILY CECILIA Administration Guaifenesin 200 mg 03/17/19 02:49 03/22/19 16:19 Organ-I Nr PO 200 mg Q4H PRN Administration Congestion Guaifenesin 100 mg 03/23/19 09:54 03/23/19 12:39 Robitussin Sf PO 100 mg Q4H PRN Administration Cough Guaifenesin/Dextromethorphan 10 ml 03/22/19 03:57 03/22/19 04:09 Robitussin Dm PO 10 ml Q6H PRN Administration Cough Insulin Glargine 60 units/ 0.6 mls @ 0 mls/hr 03/17/19 21:00 03/22/19 21:33 Miscellaneous Medication SC 0.6 mls HS CECILIA Administration Insulin Glargine 20 units/ 0.2 mls @ 0 mls/hr 03/18/19 09:00 03/23/19 08:31 Miscellaneous Medication SC 0.2 mls QAM CECILIA Administration Insulin Human Lispro 0 units 03/22/19 17:01 03/23/19 12:39 Humalog SC 5 units .MILD SLIDING SCALE PRN Administration Mild Correctional Scale Insulin Human Lispro 0 units 03/22/19 21:04 03/22/19 21:33 Humalog SC 5 unit .BEDTIME SLIDING SC PRN Administration Bedtime Correctional Scale Levothyroxine Sodium 50 mcg 03/17/19 06:00 03/23/19 05:08 Synthroid PO 50 mcg 0600 CECILIA Administration Methylprednisolone Sodium Succinate 40 mg 03/23/19 09:00 03/23/19 08:30 Solu-Medrol IVP 40 mg DAILY CECILIA Administration Pregabalin 50 mg 03/19/19 09:00 03/23/19 08:42 Lyrica PO 50 mg BID CECILIA Administration Tamsulosin HCl 0.4 mg 03/17/19 21:00 03/22/19 19:44 Flomax PO 0.4 mg HS CECILIA Administration Tizanidine HCl 4 mg 03/17/19 21:00 03/22/19 19:44 Zanaflex PO 4 mg HS CECILIA Administration Tramadol HCl 50 mg 03/19/19 10:49 03/20/19 17:47 Ultram PO 50 mg Q6H PRN Administration Pain - Exam Heart: negative: RRR, no murmur, no gallops, no rubs, normal peripheral pulses, irregular, diminshed peripheral pulses, murmur present, II/IV, III/IV Respiratory: rhonchi, wheezes. negative: CTAB, no wheezes, no rales, no ronchi , normal chest expansion, no tachypnea, normal percussion, rales, tachypneic Hosp A/P (1) Atrial fibrillation with RVR Code(s): I48.91 - UNSPECIFIED ATRIAL FIBRILLATION Status: Acute (2) Chronic kidney disease, stage 3 Code(s): N18.3 - CHRONIC KIDNEY DISEASE, STAGE 3 (MODERATE) Status: Chronic (3) CAD (coronary artery disease) Code(s): I25.10 - ATHSCL HEART DISEASE OF [place] CORONARY ARTERY W/O ANG PCTRS Status: Chronic Qualifiers: Coronary Disease-Associated Artery/Lesion type: [place] artery [place] vs. transplanted heart: [place] heart Associated angina: with stable angina Qualified Code(s): I25.118 - Atherosclerotic heart disease of [place] coronary artery with other forms of angina pectoris (4) DM type 2 (diabetes mellitus, type 2) Status: Chronic Qualifiers: Diabetes mellitus termite control representative insulin use: with termite control representative use Diabetes mellitus complication status: with kidney complications Diabetes mellitus complication detail: with chronic kidney disease Chronic kidney disease stage : stage 3 (moderate) Qualified Code(s): E11.22 - Type 2 diabetes mellitus with diabetic chronic kidney disease; N18.3 - Chronic kidney disease, stage 3 ( moderate); Z79.4 - [place] (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 of insulin (5) HTN (hypertension) Code(s): I10 - ESSENTIAL (PRIMARY) HYPERTENSION Status: Chronic Qualifiers: Hypertension type: essential hypertension Qualified Code(s): I10 - Essential (primary) hypertension (6) Morbid obesity with BMI of 40.0-44.9, adult Code(s): E66.01 - MORBID (SEVERE) OBESITY DUE TO EXCESS CALORIES; Z68.41 - BODY MASS INDEX (BMI) 40.0-44.9, ADULT Status: Chronic - Plan will start her on AC in addition to her brilinta and asa. cardiology consulted for her afib. she is on Cardizem drip. will continue her home medication. 03/20 pt's blood sugar was low will hold lantus and start her on d10. pt to undergo egd/colonoscopy in am. 03/21 pt going for colonoscopy today and has rhonchi will give her lasix x1 now 03/22 will add solumedrol and lasix to her current tx since she does have some rhonchi. 03/23 pt up in bed feels well, her hh is low compared to yesterday will monitor for one more day.
[2019-03-23] MEDS: tiZANidine HCl 4 MG TAB PO SCH (21:45)
[2019-03-23] MEDS: Tamsulosin HCl 0.4 MG CAP PO SCH (21:45)
[2019-03-23] MEDS: Insulin Glargine 60 UNITS in Pre-Filled Syringe 1 EACH SC SCH (21:45)
[2019-03-24] MEDS: HumaLOG 300 UNITS/3 ML VIAL SC PRN ×3 (00:42→17:13)
[2019-03-24] MEDS: Diabetic Tussin 200 MG/10 ML UDCUP PO PRN (02:58)
[2019-03-24] MEDS: Levothyroxine Sodium 50 MCG TAB PO SCH (05:31)
[2019-03-24] MEDS: ALPRAZolam 1 MG TAB PO PRN ×2 (05:31→14:19)
[2019-03-24 06:03] LABS: #Eosinphils 0.1 thou/uL (0.0-0.7); #Lymphocytes 2.3 thou/uL (1.20-3.40); #Monocytes 0.5 thou/uL (0.11-0.59); %Basophils 0.6 % (0.0-1.0); %Eosinophils 1.3 % (0.0-10.0); %Lymphocytes 28.8 % (21.0-51.0); %Monocytes 6.7 % (0.0-10.0); %Neutrophils 62.6 % (42.0-75.0); Mean Corpuscular HGB CONC 32.4 g/dL (32.0-36.0); Mean Corpuscular Hemoglobin 26.9 pg (27.0-31.0); Mean Corpuscular Volume 82.9 fL (78.0-98.0); Platelet Count 242 thou/uL (130-400); RBC Distribution Width 14.2 % (11.5-14.5); Red Blood Cell (RBC) Count 2.98 mill/uL (4.20-5.40)
[2019-03-24 06:16] LABS: Anion Gap 11 mmol/L (10-20); BUN (Urea Nitrogen) 43 mg/dL (9.8-20.1); Calc. Creatinine Clearance 40 mL/min (70-130); Calcium 9.7 mg/dL (7.8-10.44); Carbon Dioxide 30 mmol/L (23-31); Chloride 96 mmol/L (98-107); Estimated GFR-MDRD 22; Glucose 172 mg/dL (80-115); Potassium 4.4 mmol/L (3.5-5.1); Sodium 133 mmol/L (136-145)
[2019-03-24] MEDS: Aspirin Chewable 81 MG TAB PO SCH (08:59)
[2019-03-24] MEDS: Pregabalin 50 MG CAP PO SCH (08:59)
[2019-03-24] MEDS ORDERED: Famotidine 20 MG TAB PO SCH (09:00)
[2019-03-24] MEDS: Atorvastatin Calcium 40 MG TAB PO SCH (09:00)
[2019-03-24] MEDS: Enoxaparin Sodium 100 MG/ML SYRINGE SC SCH (09:01)
[2019-03-24] MEDS: Clopidogrel Bisulfate 75 MG TAB PO SCH (09:01)
[2019-03-24] MEDS: Escitalopram Oxalate 20 mg Tablet PO SCH (09:01)
[2019-03-24] MEDS: methylPREDNISolone Sod Succ 40 MG VIAL IVP SCH (09:02)
[2019-03-24] MEDS: Insulin Glargine 20 UNITS in Pre-Filled Syringe 1 EACH SC SCH (09:02)
[2019-03-24] MEDS ORDERED: Acetaminophen/Codeine 30-300mg Tablet PO PRN ×2 (11:23)
[2019-03-24] MEDS ORDERED: Sodium Chloride 0.9% 200 ML IV PRN (11:23)
[2019-03-24] MEDS ORDERED: Nitroglycerin 0.4 MG TAB (25 Tab Bottle) SL PRN (11:23)
[2019-03-24] MEDS ORDERED: Sodium Chloride 0.9% 500 ML IV SCH (11:30)
[2019-03-24] MEDS: Furosemide 40 MG/4 ML VIAL SLOW IVP SCH (13:30)
[2019-03-24 16:40] VITALS: BP 159/78; TEMP 97.8
[2019-03-24 16:53] LABS: Hemoglobin 8.3 g/dL (12.0-16.0); Platelet Count 235 thou/uL (130-400)
--- NOTE | 2019-03-24 17:07 | PRG ---
DATE OF SERVICE: SUBJECTIVE: Patient was seen and examined at bedside and overnight events noted. Patient denies any shortness of breath or chest pain or palpitation. No history of nausea or vomiting or diarrhea or fever or chills or cramps. OBJECTIVE: GENERAL: This is an obese female, in no apparent distress. VITAL SIGNS: Temperature 97.8. Heart rate 93. Respiratory rate 18. Blood pressure 159/78. HEENT: Atraumatic, normocephalic. Oral mucosa is moist NECK: Supple. CARDIOVASCULAR: S1, S2 heard. Rate and rhythm regular. RESPIRATORY: Clear to auscultation. GASTROINTESTINAL: Abdomen is soft. MUSCULOSKELETAL: No tenderness. No edema. DERMATOLOGIC: No skin rash. NEUROLOGIC: Alert and awake and oriented X3. No focal neurologic deficits. Moving all the extremities. PSYCHIATRIC: Mood and affect normal. LABORATORY DATA: Potassium is 4.4, BUN is 43, creatinine is 2.2. ASSESSMENT AND PLAN: 1. Chronic kidney disease, stage 4 with acute kidney injury. Renal function is stable, close to her baseline. 2. Hypertension. 3. Edema. 4. Anemia. 5. The patient was advised to follow up with Dr. Jackson in 1 to 2 weeks. Job ID: [id number]
--- NOTE | 2019-03-24 17:55 | PDOC.CPN ---
- Subjective Date: 03/24/19 Time: 12:30 Interval history: She feels well. Her breathing is back to normal. - Review of Systems General: denies: fever/chills, weight/appetite/sleep changes, night sweats, fatigue Respiratory: denies: cough, congestion, shortness of breath, exercise intolerance Cardiovascular: denies: chest pain, palpitation, edema, paroxysmal nocturnal dyspnea, orthopnea Gastrointestinal: denies: nausea, vomiting, diarrhea, constipation, abd pain, GI bleeding Musculoskeletal: denies: pain, tenderness, stiffness, swelling, arthritis/ arthralgias Neurological: denies: numbness, syncope, seizure, weakness - Objective Allergies/Adverse Reactions: Allergies Allergy/AdvReac Type Severity Reaction Status Date / Time latex Allergy Verified 01/24/19 22:40 meperidine [From Demerol] Allergy Verified 01/24/19 22:40 morphine Allergy Verified 01/24/19 22:40 Vital Signs & Weight: Vital Signs Temp Pulse Resp BP BP Pulse Ox 03/24/19 16:00 97.8 F 93 18 159/78 H 95 03/24/19 14:40 76 16 96 03/24/19 11:27 97.4 F L 91 18 164/75 H 94 L 03/24/19 11:23 92 16 96 03/24/19 08:00 93 L 03/24/19 07:41 97.6 F 106 H 20 167/93 H 93 L 03/24/19 07:37 97 03/24/19 07:35 98 16 97 Weight 213 lb - Quality Measures Condition: Atrial Fibrillation/Flutter (hx or current) CV meds: Beta [place]: Yes, ANABELL/ARB: Yes, Statin: Yes, ASA: Yes, Plavix/Effient/ Brilinta: Yes, Anticoagulant: No (Due to anemia) - Medication Contraindications No Anticoagulant reason: Medical contraindication - Physical Exam General: alert & oriented x3, no apparent distress HEENT: mucus membranes moist Neck: supple neck Cardiac: regular rate and rhythm, no murmur Lungs: clear to auscultation, normal breath sounds Neuro: grossly intact Abdomen: active bowel sounds, soft, non-tender Skin: clear Musculoskeletal: normal range of motion, no pain - Labs Result Diagrams: 03/24/19 16:35 03/24/19 16:35 Troponin/CKMB CK-MB (CK-2) 0.8 ng/mL (0-6.6) 03/17/19 05:00 Troponin I 0.044 ng/mL (< 0.028) H 03/17/19 05:00 - Telemetry Sinus rhythms and dysrhythmias: sinus rhythm - Assessment/Plan Assessment/Plan: 1. Paroxysmal aF 2. CAD. 3. CKD stage III 4. Ischemic CM EF at 35-40% 5. Acute on chronic systolic heart failure. 6. Anemia PLAN: - Start Eliquis 5 mg BID. - Continue Plavix, no Aspirin due to anemia. - Plan to bring back in 1 month for PCI to RCA. - If anemic still may need blood transfusion before PCI. - May discharge home.
[2019-03-24] MEDS ORDERED: Apixaban 5 MG TAB PO SCH (21:00)
== END 2019-03-24 17:43 | disposition home or self-care (01) | DRG 308 ==
LOC: ERS 19:11 → 2SW 22:42 → OBSVTOIN 22:42 → 2NO 03-18 18:07
PROVIDERS: ADMIT Hospitalist; ATTEND Hospitalist
PROC: 0DJ08ZZ Inspection of Upper Intestinal Tract, Via Natural or Artificial Opening Endoscopic (ICD-10-PCS; principal; 2019-03-21)
PROC: 0DJD8ZZ Inspection of Lower Intestinal Tract, Via Natural or Artificial Opening Endoscopic (ICD-10-PCS; 2019-03-21)
DX: I48.0 Paroxysmal atrial fibrillation (principal); I50.23 Acute on chronic systolic (congestive) heart failure; N17.0 Acute kidney failure with tubular necrosis; I13.0 Hypertensive heart and chronic kidney disease with heart failure and stage 1 through stage 4 chronic kidney disease, or unspecified chronic kidney disease; N18.4 Chronic kidney disease, stage 4 (severe); I48.92 Unspecified atrial flutter; E11.22 Type 2 diabetes mellitus with diabetic chronic kidney disease; E66.01 Morbid (severe) obesity due to excess calories; I27.20 Pulmonary hypertension, unspecified; I25.10 Atherosclerotic heart disease of native coronary artery without angina pectoris; I25.2 Old myocardial infarction; E03.9 Hypothyroidism, unspecified; E78.5 Hyperlipidemia, unspecified; G43.909 Migraine, unspecified, not intractable, without status migrainosus; F41.9 Anxiety disorder, unspecified; F32.9 Major depressive disorder, single episode, unspecified; M79.7 Fibromyalgia; E87.6 Hypokalemia; Z90.710 Acquired absence of both cervix and uterus; Z98.890 Other specified postprocedural states; Z95.5 Presence of coronary angioplasty implant and graft; Z88.8 Allergy status to other drugs, medicaments and biological substances; Z91.040 Latex allergy status; Z79.82 Long term (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 of aspirin; Z79.02 Long term (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 of antithrombotics/antiplatelets; Z68.33 Body mass index [BMI] 33.0-33.9, adult; I25.5 Ischemic cardiomyopathy; J44.9 Chronic obstructive pulmonary disease, unspecified; D64.9 Anemia, unspecified; K57.90 Diverticulosis of intestine, part unspecified, without perforation or abscess without bleeding; K62.1 Rectal polyp; Z79.4 Long term (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 of insulin
CPT/HCPCS: 36415; 36416; 71045; 74150; 76770; 78582; 80048; 80053; 81001; 82274; 82550; 82553; 82565; 82607; 82728; 82746; 83550; 83605; 83690; 83735; 83880; 84484; 85014; 85018; 85025; 85049; 85379; 93005; 93010; 93306; 93798; 94640; A9540; A9558; J1650; J1815; J1940; J2920; J3490; J7620; S0028

== ENCOUNTER 2019-04-10 10:37 | Outpatient (CLI) | payer OTHER ==
--- NOTE | 2019-04-10 11:25 | MRI ---
EXAM: MRI of the abdomen without contrast COMPARISON: CT abdomen/pelvis 03/19/2019 HISTORY: Chronic kidney disease TECHNIQUE: Multiplanar multi sequence MR images were taken of the abdomen without IV contrast. FINDINGS: Liver: No focal liver lesions or intrahepatic ductal dilatation. Normal signal without dropout on out of phase images. Gallbladder: No filling defects or gallbladder wall thickening. Common bile duct: Normal caliber without filling defects Adrenal glands: Unremarkable. Kidneys: No hydronephrosis or suspicious renal lesions. There is a 7 mm cyst in the right kidney. Spleen: Unremarkable. Pancreas: Unremarkable. Retroperitoneum: Mildly prominent left retroperitoneal lymph nodes are stable. Bones: No marrow signal abnormality. IMPRESSION: Right renal cyst without significant renal abnormality
== END 2019-04-10 10:38 | disposition home or self-care (01) ==
LOC: MRI 10:37
PROVIDERS: ATTEND Internal Medicine Nephrology
DX: N18.3 Chronic kidney disease, stage 3 (moderate) (principal); Q61.9 Cystic kidney disease, unspecified; N28.1 Cyst of kidney, acquired
CPT/HCPCS: 74181

== ENCOUNTER 2019-04-26 20:24 | Inpatient (IN) | payer OTHER ==
[2019-04-26 21:02] LABS: #Basophils 0.1 thou/uL (0.0-0.2); #Eosinphils 0.1 thou/uL (0.0-0.7); #Lymphocytes 2.2 thou/uL (1.20-3.40); #Monocytes 0.4 thou/uL (0.11-0.59); #Neutrophils 3.2 thou/uL (1.40-6.50); %Eosinophils 2.1 % (0.0-10.0); %Lymphocytes 36.7 % (21.0-51.0); %Monocytes 6.5 % (0.0-10.0); %Neutrophils 53.8 % (42.0-75.0); Hemoglobin 11.4 g/dL (12.0-16.0); Mean Corpuscular HGB CONC 34.4 g/dL (32.0-36.0); Mean Corpuscular Hemoglobin 27.7 pg (27.0-31.0); Mean Corpuscular Volume 80.7 fL (78.0-98.0); Mean Platelet Volume 8.6 fL (7.4-10.4); Platelet Count 248 thou/uL (130-400)
[2019-04-26 21:27] LABS: ALT (SGPT) Less than 7 U/L (8-55); AST (SGOT) 6 U/L (5-34); Albumin 3.7 g/dL (3.4-4.8); Alkaline Phosphatase 124 U/L (40-110); Anion Gap 12 mmol/L (10-20); BUN (Urea Nitrogen) 28 mg/dL (9.8-20.1); Bilirubin, Total 0.4 mg/dL (0.2-1.2); CK (CPK) 20 U/L (29-168); Calc. Creatinine Clearance 0 mL/min (70-130); Calcium 9.4 mg/dL (7.8-10.44); Carbon Dioxide 26 mmol/L (23-31); Chloride 104 mmol/L (98-107); Estimated GFR-MDRD 36; Globulin 2.7 g/dL (2.4-3.5); Glucose 158 mg/dL (80-115); Lipase 72 U/L (8-78); Potassium 3.2 mmol/L (3.5-5.1); Protein, Total 6.4 g/dL (6.0-8.3); Sodium 139 mmol/L (136-145)
[2019-04-27 00:29] LABS: Troponin I Less than 0.010 ng/mL (< 0.028)
[2019-04-27 01:57] VITALS: BMI 29.1
[2019-04-27 03:34] LABS: Troponin I Less than 0.010 ng/mL (< 0.028)
[2019-04-27] MEDS: ALPRAZolam 1 MG TAB PO PRN ×3 (04:13→21:02)
[2019-04-27] MEDS: hydrALAZINE 20 MG/ML VIAL SLOW IVP PRN ×2 (04:49→12:00)
--- NOTE | 2019-04-27 12:58 | NM ---
MYOCARDIAL PERFUSION SCAN: The patient was given 10 mCi of Technetium sestamibi for rest imaging and 30 mCi for stress imaging. The patient was stressed according to LexiScan protocol. The left ventricle was imaged with SPECT imaging. Attenuation correction images obtained. FINDINGS: Normal activity in the left ventricle is seen when nonattenuation and attenuation correction images a re reviewed. No evidence of reversible ischemia identified. Wall motion appears normal. Ejection fraction is decreased at 45%. IMPRESSION: No evidence of reversible ischemia. POS: MIHAELA
[2019-04-27] MEDS ORDERED: Fluticasone Propionate Nasal Spray 16 gm Bottle NASAL PRN (13:00)
--- NOTE | 2019-04-27 13:08 | PDOC.HHP ---
Hospitalist HPI - History of Present Illness Chest pain, backache on/ff since last night, not related to exercise.. History of Present Illness: Chest pain on/off since last night. Pain is not related to exercise, associated with SOB...Denies fever, coughing. Hospitalist ROS - Review of Systems Constitutional: denies: fever, chills, sweats, weakness, malaise, other Eyes: denies: pain, vision change, conjunctivae inflammation, eyelid inflammation, redness, other ENT: denies: ear pain, ear discharge, nose pain, nose discharge, nose congestion , mouth pain, mouth swelling, throat pain, throat swelling, other Respiratory: reports: shortness of breath. denies: cough, dry, hemoptysis, SOB with excertion, pleuritic pain, sputum, wheezing, other Cardiovascular: reports: chest pain Gastrointestinal: denies: nausea, vomiting, abdominal pain, diarrhea, constipation, melena, hematochezia, other Genitourinary: denies: dysuria, frequency, incontinence, hematuria, retention, other Musculoskeletal: reports: back pain (Arthritis) Skin: denies: rash, lesions, chiquis, bruising, other Neurological: denies: weakness, numbness, incoordination, change in speech, confusion, seizures, other - Medication Medications: Active Medications Generic Name Dose Route Start Last Admin Trade Name Freq PRN Reason Stop Dose Admin Alprazolam 1 mg 04/27/19 04:07 04/27/19 12:00 Xanax PO 1 mg TIDPRN PRN Administration Anxiety Hydralazine HCl 5 mg 04/27/19 04:06 04/27/19 12:00 Apresoline SLOW IVP 5 mg Q6H PRN Administration SBP Greater Than 180 Hospitalist History - Past Medical History Cardiac: reports: AFIB (paroxismal..), CAD, HTN Pulmonary: reports: COPD HERB DIGGER: denies: no pertinent history, Carpal Tunnel Syndrome, CVA, Dementia, Migraine, Peripheral neuropathy, Seizure, TIA, Vertigo, Other Gastrointestinal: denies: no pertinent history, Constipation, Diverticulosis, GERD, GI bleed, Gastritis, Hemorrhoids, Inflam bowel disease, Irritable bowel disease, Peptic ulcer disease, Other Heme/Onc: denies: no pertinent history, Anemia NOS, B12 deficiency, Cancer, Hemochromatosis, Iron deficiency anemia, Sickle cell disease, Sickle cell trait , Other Hepatobiliary: denies: no pertinent history, Cirrhosis, Cholelithiasis, Hep A/B/ C, Other Musculoskeletal: reports: Osteoarthritis Rheumatologic: reports: Fibromyalgia Infectious Disease: denies: no pertinent history, Bacterial vaginosis, [place], Gonorrhea, HIV, Human papilloma virus, Herpes simplex 1, Herpes simplex 2, Herpes zoster, Other ENT: denies: no pertinent history, Sinusitis, Allergic rhinitis, Other Renal/: reports: Acute renal failure Endocrine: reports: Diabetes, Hypothyroidism - Past Surgical History Past Surgical History: reports: Hysterectomy Other Surgical History: +Right leg, Left shoulder.. - Family History Family History: reports: no pertinent history - Social History Smoking Status: Never smoker Alcohol: reports: None Drugs: reports: Other (Used marijuana in the past..) - Exam General Appearance: NAD, awake alert Eye: PERRL, anicteric sclera ENT: normocephalic atraumatic, no oropharyngeal lesions, moist mucosa Neck: supple, symmetric, no JVD, no thyromegaly, no lymphadenopathy, no carotid bruit Heart: RRR Respiratory: CTAB Gastrointestinal: soft, non-tender, non-distended, normal bowel sounds, no palpable masses, no hepatomegaly, no splenomegaly Extremities: no edema Skin: normal turgor, no lesions, no rashes Neurological: no weakness, no focal deficits Musculoskeletal: normal tone, normal strength Psychiatric: normal affect, A&O x 3 Hospitalist Results - Labs Result Diagrams: 04/26/19 20:53 04/26/19 20:53 Lab results: WBC 6.0 thou/uL (4.8-10.8) 04/26/19 20:53 Hgb 11.4 g/dL (12.0-16.0) L 04/26/19 20:53 Hct 33.1 % (36.0-47.0) L 04/26/19 20:53 MCV 80.7 fL (78.0-98.0) 04/26/19 20:53 Plt Count 248 thou/uL (130-400) 04/26/19 20:53 Neutrophils % 53.8 % (42.0-75.0) 04/26/19 20:53 Sodium 139 mmol/L (136-145) 04/26/19 20:53 Potassium 3.2 mmol/L (3.5-5.1) L 04/26/19 20:53 Chloride 104 mmol/L (98-107) 04/26/19 20:53 Carbon Dioxide 26 mmol/L (23-31) 04/26/19 20:53 BUN 28 mg/dL (9.8-20.1) H 04/26/19 20:53 Creatinine 1.49 mg/dL (0.6-1.1) H 04/26/19 20:53 Glucose 158 mg/dL (80-115) H 04/26/19 20:53 Calcium 9.4 mg/dL (7.8-10.44) 04/26/19 20:53 Total Bilirubin 0.4 mg/dL (0.2-1.2) 04/26/19 20:53 AST 6 U/L (5-34) 04/26/19 20:53 ALT Less than 7 U/L (8-55) L 04/26/19 20:53 Alkaline Phosphatase 124 U/L (40-110) H 04/26/19 20:53 Creatine Kinase 20 U/L (29-168) L 04/26/19 20:53 Troponin I Less than 0.010 ng/mL (< 0.028) 04/27/19 03:00 Serum Total Protein 6.4 g/dL (6.0-8.3) 04/26/19 20:53 Albumin 3.7 g/dL (3.4-4.8) 04/26/19 20:53 Lipase 72 U/L (8-78) 04/26/19 20:53 Hospitalist H&P A/P - Problem (1) Paroxysmal atrial fibrillation Code(s): I48.0 - PAROXYSMAL ATRIAL FIBRILLATION Status: Acute (2) Chest pain Code(s): R07.9 - CHEST PAIN, UNSPECIFIED Status: Acute Assessment and Plan: Chest pain protocol initiated.. (3) Diabetes mellitus Code(s): E11.9 - TYPE 2 DIABETES MELLITUS WITHOUT COMPLICATIONS Status: Acute (4) CAD (coronary artery disease) Code(s): I25.10 - ATHSCL HEART DISEASE OF [place] CORONARY ARTERY W/O ANG PCTRS Status: Chronic Qualifiers: Coronary Disease-Associated Artery/Lesion type: [place] artery [place] vs. transplanted heart: [place] heart Associated angina: with stable angina Qualified Code(s): I25.118 - Atherosclerotic heart disease of [place] coronary artery with other forms of angina pectoris (5) COPD (chronic obstructive pulmonary disease) Status: Chronic Qualifiers: COPD type: chronic bronchitis (6) Dyslipidemia Code(s): E78.5 - HYPERLIPIDEMIA, UNSPECIFIED Status: Chronic (7) HTN (hypertension) Code(s): I10 - ESSENTIAL (PRIMARY) HYPERTENSION Status: Chronic Qualifiers: Hypertension type: essential hypertension Qualified Code(s): I10 - Essential (primary) hypertension - Plan Plan: Chest pain protocol.. f/u stress test. Cardiac enzymes negative.
[2019-04-27] MEDS ORDERED: Potassium Chloride 20 MEQ TAB PO SCH (13:30)
[2019-04-27] MEDS: glipiZIDE 10 MG TAB PO SCH (13:49)
[2019-04-27] MEDS: HumaLOG 300 UNITS/3 ML VIAL SC SCH (15:10)
[2019-04-27] MEDS ORDERED: Insulin Regular 300 UNITS/3 ML VIAL SC PRN (15:18)
[2019-04-27] MEDS ORDERED: Dextrose 50% Abboject 50 ML SYRINGE SLOW IVP PRN (15:18)
[2019-04-27] MEDS ORDERED: Dextrose 5% in Water 1,000 ML IV PRN (15:18)
[2019-04-27] MEDS ORDERED: Regadenoson 0.4 MG/5 ML SYRINGE ONE (19:56)
[2019-04-27] MEDS: Fioricet 325/50/40 mg Tablet PO PRN (20:56)
[2019-04-27] MEDS: Apixaban 5 MG TAB PO SCH (20:57)
[2019-04-27] MEDS: Pregabalin 50 MG CAP PO SCH (20:57)
[2019-04-27] MEDS: Metoprolol Tartrate 25 MG TAB PO SCH (20:58)
[2019-04-27] MEDS: Tamsulosin HCl 0.4 MG CAP PO SCH (20:58)
[2019-04-27] MEDS: Atorvastatin Calcium 40 MG TAB PO SCH (20:58)
[2019-04-27] MEDS ORDERED: Non-Formulary Item 1 EACH (Insulin Glargine,Hum.Rec.Anlog [Lantus Solostar] 60 UNIT) SQ SCH (21:00)
[2019-04-27] MEDS ORDERED: FLU VACC QS2019-20(6MOS UP)/PF 60 MCG/0.5 ML SYRINGE IM ONE (21:00)
[2019-04-27] MEDS: Insulin Glargine 60 UNITS in Pre-Filled Syringe 1 EACH SC SCH (21:00)
--- NOTE | 2019-04-28 07:28 | RAD ---
EXAM: Single view of the chest HISTORY: Chest pain COMPARISON: 03/18/2019 FINDINGS: Single view of the chest shows a normal sized cardiomediastinal silhouette. There is no kingsley dence of consolidation, mass, or pleural effusion. The bones are unremarkable. IMPRESSION: No evidence of acute cardiopulmonary disease
[2019-04-28] MEDS: glipiZIDE 10 MG TAB PO SCH ×2 (08:50→17:07)
[2019-04-28] MEDS: Lisinopril 2.5 MG TAB PO SCH (08:50)
[2019-04-28] MEDS: Apixaban 5 MG TAB PO SCH (08:50)
[2019-04-28] MEDS: Aspirin 81 mg Enteric Coated Tablet PO SCH (08:50)
[2019-04-28] MEDS: Levothyroxine Sodium 50 MCG TAB PO SCH (08:51)
[2019-04-28] MEDS: Clopidogrel Bisulfate 75 MG TAB PO SCH (08:51)
[2019-04-28] MEDS: Metoprolol Tartrate 25 MG TAB PO SCH ×2 (08:51→21:32)
[2019-04-28] MEDS: Escitalopram Oxalate 20 mg Tablet PO SCH (08:51)
[2019-04-28] MEDS: Furosemide 40 MG TAB PO SCH (08:51)
[2019-04-28] MEDS: Pregabalin 50 MG CAP PO SCH ×2 (08:52→21:32)
[2019-04-28] MEDS: HumaLOG 300 UNITS/3 ML VIAL SC SCH ×3 (08:54→17:07)
[2019-04-28] MEDS ORDERED: predniSONE 20 MG TAB PO SCH (09:00)
--- NOTE | 2019-04-28 11:49 | PDOC.HOSPP ---
- Subjective Encounter Date: 04/28/19 Encounter Time: 11:48 Subjective: no chest pain - Objective Vital Signs & Weight: Vital Signs (12 hours) Temp Pulse Resp BP BP Pulse Ox 04/28/19 08:00 97.6 F 62 20 142/66 H 97 04/28/19 04:17 97.5 F L 58 L 18 140/65 98 Weight Weight 191 lb 11.2 oz I&O: 04/27/19 04/28/19 04/29/19 06:59 06:59 06:59 Intake Total 240 600 Output Total 250 Balance -10 600 Result Diagrams: 04/26/19 20:53 04/26/19 20:53 Additional Labs: Accuchecks 04/28/19 04/28/19 04/27/19 10:57 06:16 20:48 POC Glucose 109 156 H 91 04/27/19 15:15 POC Glucose 281 H Hospitalist ROS - Medication Medications: Active Medications Generic Name Dose Route Start Last Admin Trade Name Freq PRN Reason Stop Dose Admin Acetaminophen/Butalbital/Caffeine 1 tab 04/27/19 03:58 04/27/19 20:56 Fioricet PO 05/02/19 03:59 1 tab Q6H PRN Administration Headache Alprazolam 1 mg 04/27/19 13:00 04/27/19 21:02 Xanax PO 1 mg TIDPRN PRN Administration Anxiety Apixaban 5 mg 04/27/19 21:00 04/28/19 08:50 Eliquis PO 5 mg BID CECILIA Administration Aspirin 81 mg 04/28/19 09:00 04/28/19 08:50 Ecotrin PO Not Given DAILY CECILIA Atorvastatin Calcium 40 mg 04/27/19 21:00 04/27/19 20:58 Lipitor PO 40 mg HS CECILIA Administration Clopidogrel Bisulfate 75 mg 04/28/19 09:00 04/28/19 08:51 Plavix PO Not Given DAILY CECILIA Escitalopram Oxalate 20 mg 04/28/19 09:00 04/28/19 08:51 Lexapro PO 20 mg DAILY CECILIA Administration Furosemide 40 mg 04/28/19 09:00 04/28/19 08:51 Lasix PO 40 mg DAILY CECILIA Administration Glipizide 10 mg 04/27/19 16:30 04/28/19 08:50 Glucotrol PO 10 mg BID-AC CECILIA Administration Hydralazine HCl 5 mg 04/27/19 04:06 04/27/19 12:00 Apresoline SLOW IVP 5 mg Q6H PRN Administration SBP Greater Than 180 Insulin Glargine 60 units/ 0.6 mls @ 0 mls/hr 04/27/19 21:00 04/27/19 21:00 Miscellaneous Medication SC Not Given HS CECILIA Insulin Human Lispro 30 units 04/27/19 17:00 04/28/19 08:54 Humalog SC 30 unit TID-WM CECILIA Administration Levothyroxine Sodium 50 mcg 04/28/19 09:00 04/28/19 08:51 Synthroid PO 50 mcg DAILY CECILIA Administration Lisinopril 2.5 mg 04/28/19 09:00 04/28/19 08:50 Zestril PO 2.5 mg DAILY CECILIA Administration Metoprolol Tartrate 12.5 mg 04/27/19 21:00 04/28/19 08:51 Lopressor PO 12.5 mg BID CECILIA Administration Prednisone 40 mg 04/28/19 09:00 04/28/19 08:51 Prednisone PO 40 mg QAM CECILIA Administration Pregabalin 100 mg 04/27/19 21:00 04/28/19 08:52 Lyrica PO 100 mg BID CECILIA Administration Sodium Chloride 10 ml 04/27/19 21:00 04/28/19 08:59 Flush - Normal Saline IVF 10 ml Q12HR CECILIA Administration Tamsulosin HCl 0.4 mg 04/27/19 21:00 04/27/19 20:58 Flomax PO 0.4 mg HS CECILIA Administration - Exam Neck: no JVD Heart: RRR Respiratory: CTAB Gastrointestinal: soft, normal bowel sounds Extremities: no edema Hosp A/P (1) Chest pain Code(s): R07.9 - CHEST PAIN, UNSPECIFIED Status: Acute Qualifiers: Ischemic chest pain type: unspecified angina pectoris type (2) CAD (coronary artery disease) Code(s): I25.10 - ATHSCL HEART DISEASE OF [place] CORONARY ARTERY W/O ANG PCTRS Status: Chronic Qualifiers: Coronary Disease-Associated Artery/Lesion type: [place] artery [place] vs. 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 terminal operator insulin use: with intermediate use Diabetes mellitus complication status: with kidney complications Diabetes mellitus complication detail: with chronic kidney disease Chronic kidney disease stage : stage 3 (moderate) Qualified Code(s): E11.22 - Type 2 diabetes mellitus with diabetic chronic kidney disease; N18.3 - Chronic kidney disease, stage 3 ( moderate); Z79.4 - prison (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 of insulin (5) HTN (hypertension) Code(s): I10 - ESSENTIAL (PRIMARY) HYPERTENSION Status: Chronic Qualifiers: Hypertension type: essential hypertension Qualified Code(s): I10 - Essential (primary) hypertension - Plan stress test neg. intervention in RCA has been pending consult Dr Peter
--- NOTE | 2019-04-28 16:44 | PDOC.EVN ---
Event Note - Event Note Event Note: unstable angina- inpatient status
--- NOTE | 2019-04-28 18:49 | CON ---
DATE OF CONSULTATION: 04/28/2019 REASON FOR CONSULTATION: Chest pain. HISTORY OF PRESENT ILLNESS: Ms. Mendez is a very pleasant 63-year-old white female, who comes to the hospital for chest pain. She was at home and started having chest pain at rest. She was admitted for rule out. She had negative troponins and a stress test was done and it showed no evidence of reversible ischemia; however, Ms. Mendez was catheterized earlier this year and had an LAD stent in the setting of a non-STEMI. She has residual RCA disease that we have been trying to fix electively. However, she has never able to come back to see us in the office as she has transportation issues. Currently, she has been having a lot more episodes of chest pain at rest, so she decided to come in for further evaluation. On my evaluation, she is chest-pain free, but she had an episode of chest pain last night. PAST MEDICAL HISTORY: 1. Coronary artery disease with recent stenting to her LAD. 2. Residual RCA disease, severe. 3. Type 2 diabetes. 4. Hypothyroidism. 5. Hyperlipidemia. 6. COPD. 7. Hypertension. 8. Bradycardia. 9. Fibromyalgia. 10. Migraine headaches. 11. Anxiety and depression. 12. Atrial fibrillation, paroxysmal. PAST SURGICAL HISTORY: 1. PCI to LAD as above. 2. Hysterectomy. 3. Right leg surgery. 4. Cyst removal in the left shoulder, neck, and axilla. SOCIAL HISTORY: No alcohol, tobacco, or drugs. OUTPATIENT MEDICATIONS: 1. Flomax. 2. Atorvastatin 40 mg at bedtime. 3. Lasix 40 mg a day. 4. Lexapro 10 mg a day. 5. Xanax. 6. Glipizide. 7. Lyrica. 8. Levothyroxine 50 mcg a day. 9. NovoLog insulin. 10. Tizanidine. 11. Prednisone 40 mg q.a.m. 12. Lantus insulin. 13. Flonase. 14. Plavix 75 mg a day. 15. Eliquis 5 mg b.i.d. REVIEW OF SYSTEMS: A 12-point review of systems all was done and was all negative unless stated in the history of present illness. FAMILY HISTORY: Noncontributory. PHYSICAL EXAMINATION: VITAL SIGNS: Temperature 97.4, pulse 67, respiratory rate 17, sat 97% on room air, blood pressure 144/66. GENERAL: Awake, alert, and oriented x3, in no distress. HEENT: Normocephalic and atraumatic. NECK: Supple. LUNGS: Clear. CARDIOVASCULAR: S1 and S2. No S3 or S4. No murmurs. ABDOMEN: Soft. Positive bowel sounds. EXTREMITIES: No edema. SKIN: Warm and dry. LABORATORY DATA: Laboratory work was reviewed. White count of 6, hemoglobin 11, hematocrit of 33, and platelet count of 248. Chemistries were also reviewed. Troponin has been undetectable. Potassium was 3.2, creatinine 1.49 with a GFR of 36. EKG was reviewed. LV function on nuclear stress test was 45%. Most recent echocardiogram was done about a month ago, which showed an EF of 35% to 40%. ASSESSMENT AND PLAN: 1. Unstable angina. 2. Ischemic cardiomyopathy. 3. Known coronary artery disease. 4. Residual RCA severe disease on recent heart catheterization. 5. Unstable angina. PLAN: 1. We will plan on stopping the Eliquis and plan on doing heart catheterization in the next 2 days waiting for the Eliquis to wear off. She received a dose this morning, so we will hold it today and we will have to do this Sunday. 2. We will do a full dose Lovenox in the meantime for both unstable angina and for stroke prophylaxis from atrial fibrillation as a bridge. 3. Bare metal stents to the RCA given need for long-term anticoagulation now. Thank you for letting us participate in the care of your patient. We will follow. Job ID: [id number]
[2019-04-28] MEDS: Insulin Glargine 60 UNITS in Pre-Filled Syringe 1 EACH SC SCH (21:33)
[2019-04-28] MEDS: Tamsulosin HCl 0.4 MG CAP PO SCH (21:33)
[2019-04-28] MEDS: Atorvastatin Calcium 40 MG TAB PO SCH (21:33)
[2019-04-28] MEDS: ALPRAZolam 1 MG TAB PO PRN (21:42)
[2019-04-28 22:03] LABS: Hemoglobin 11.1 g/dL (12.0-16.0); Platelet Count 258 thou/uL (130-400)
[2019-04-28] MEDS: Fioricet 325/50/40 mg Tablet PO PRN (22:10)
[2019-04-28] MEDS: hydrALAZINE 20 MG/ML VIAL SLOW IVP PRN (23:59)
--- NOTE | 2019-04-29 08:06 | PDOC.HOSPP ---
- Subjective Encounter Date: 04/29/19 Encounter Time: 08:04 Subjective: no pain - Objective Vital Signs & Weight: Vital Signs (12 hours) Temp Pulse Resp BP BP BP BP 04/29/19 07:34 97.8 F 64 14 154/70 H 04/29/19 04:00 62 18 139/64 04/29/19 00:30 68 18 139/63 04/28/19 23:59 71 196/77 H 04/28/19 23:50 71 14 196/77 H 04/28/19 23:20 97.4 F L 70 16 186/76 H Pulse Ox 04/29/19 07:34 100 04/29/19 04:00 97 04/29/19 00:30 04/28/19 23:59 04/28/19 23:50 04/28/19 23:20 100 Weight Weight 191 lb 11.2 oz I&O: 04/28/19 04/29/19 04/30/19 06:59 06:59 06:59 Intake Total 600 860 Output Total 800 Balance 600 60 Result Diagrams: 04/28/19 21:45 04/28/19 21:46 Additional Labs: Accuchecks 04/29/19 04/28/19 04/28/19 06:18 20:46 16:54 POC Glucose 166 H 264 H 307 H 04/28/19 10:57 POC Glucose 109 Hospitalist ROS - Medication Medications: Active Medications Generic Name Dose Route Start Last Admin Trade Name Freq PRN Reason Stop Dose Admin Acetaminophen/Butalbital/Caffeine 1 tab 04/27/19 03:58 04/28/19 22:10 Fioricet PO 05/02/19 03:59 1 tab Q6H PRN Administration Headache Alprazolam 1 mg 04/27/19 13:00 04/28/19 21:42 Xanax PO 1 mg TIDPRN PRN Administration Anxiety Aspirin 81 mg 04/28/19 09:00 04/28/19 08:50 Ecotrin PO Not Given DAILY CECILIA Atorvastatin Calcium 40 mg 04/27/19 21:00 04/28/19 21:33 Lipitor PO 40 mg HS CECILIA Administration Clopidogrel Bisulfate 75 mg 04/28/19 09:00 04/28/19 08:51 Plavix PO Not Given DAILY CECILIA Escitalopram Oxalate 20 mg 04/28/19 09:00 04/28/19 08:51 Lexapro PO 20 mg DAILY CECILIA Administration Furosemide 40 mg 04/28/19 09:00 04/28/19 08:51 Lasix PO 40 mg DAILY CECILIA Administration Glipizide 10 mg 04/27/19 16:30 04/28/19 17:07 Glucotrol PO 10 mg BID-AC CECILIA Administration Hydralazine HCl 5 mg 04/27/19 04:06 04/28/19 23:59 Apresoline SLOW IVP 5 mg Q6H PRN Administration SBP Greater Than 180 Insulin Glargine 60 units/ 0.6 mls @ 0 mls/hr 04/27/19 21:00 04/28/19 21:33 Miscellaneous Medication SC 0.6 mls HS CECILIA Administration Insulin Human Lispro 30 units 04/27/19 17:00 04/28/19 17:07 Humalog SC 30 unit TID-WM CECILIA Administration Insulin Human Regular 0 units 04/27/19 15:18 04/28/19 21:36 Humulin R SC 3 unit .BEDTIME SLIDING SC PRN Administration Bedtime Correctional Scale Levothyroxine Sodium 50 mcg 04/28/19 09:00 04/28/19 08:51 Synthroid PO 50 mcg DAILY CECILIA Administration Lisinopril 2.5 mg 04/28/19 09:00 04/28/19 08:50 Zestril PO 2.5 mg DAILY CECILIA Administration Metoprolol Tartrate 12.5 mg 04/27/19 21:00 04/28/19 21:32 Lopressor PO 12.5 mg BID CECILIA Administration Prednisone 40 mg 04/28/19 09:00 04/28/19 08:51 Prednisone PO 40 mg QAM CECILIA Administration Pregabalin 100 mg 04/27/19 21:00 04/28/19 21:32 Lyrica PO 100 mg BID CECILIA Administration Sodium Chloride 10 ml 04/27/19 21:00 04/29/19 02:54 Flush - Normal Saline IVF Not Given Q12HR CECILIA Tamsulosin HCl 0.4 mg 04/27/19 21:00 04/28/19 21:33 Flomax PO 0.4 mg HS CECILIA Administration - Exam General Appearance: awake alert Neck: no JVD Heart: RRR, no murmur Respiratory: CTAB Gastrointestinal: soft, normal bowel sounds Extremities: no edema Hosp A/P (1) Unstable angina Status: Acute (2) CAD (coronary artery disease) Code(s): I25.10 - ATHSCL HEART DISEASE OF [place] CORONARY ARTERY W/O ANG PCTRS Status: Chronic Qualifiers: Coronary Disease-Associated Artery/Lesion type: [place] artery [place] vs. transplanted heart: [place] heart Associated angina: with stable angina Qualified Code(s): I25.118 - Atherosclerotic heart disease of [place] coronary artery with other forms of angina pectoris (3) COPD (chronic obstructive pulmonary disease) Status: Chronic Qualifiers: COPD type: chronic bronchitis (4) DM type 2 (diabetes mellitus, type 2) Status: Chronic Qualifiers: Diabetes mellitus fpc insulin use: with fpc use Diabetes mellitus complication status: with kidney complications Diabetes mellitus complication detail: with chronic kidney disease Chronic kidney disease stage : stage 3 (moderate) Qualified Code(s): E11.22 - Type 2 diabetes mellitus with diabetic chronic kidney disease; N18.3 - Chronic kidney disease, stage 3 ( moderate); Z79.4 - retirement (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 of insulin (5) HTN (hypertension) Code(s): I10 - ESSENTIAL (PRIMARY) HYPERTENSION Status: Chronic Qualifiers: Hypertension type: essential hypertension Qualified Code(s): I10 - Essential (primary) hypertension - Plan continue current tx, cardiac cath with PCI tomorrow creat up, iv fluids, rpt BMP in am
[2019-04-29] MEDS: Lisinopril 2.5 MG TAB PO SCH (08:14)
[2019-04-29] MEDS: Escitalopram Oxalate 20 mg Tablet PO SCH (08:15)
[2019-04-29] MEDS: Furosemide 40 MG TAB PO SCH (08:15)
[2019-04-29] MEDS: glipiZIDE 10 MG TAB PO SCH ×2 (08:15→16:29)
[2019-04-29] MEDS: Metoprolol Tartrate 25 MG TAB PO SCH ×2 (08:15→21:50)
[2019-04-29] MEDS: Pregabalin 50 MG CAP PO SCH ×2 (08:15→21:51)
[2019-04-29] MEDS: Levothyroxine Sodium 50 MCG TAB PO SCH (08:15)
[2019-04-29] MEDS: Aspirin 81 mg Enteric Coated Tablet PO SCH (08:16)
[2019-04-29] MEDS: Clopidogrel Bisulfate 75 MG TAB PO SCH (08:16)
[2019-04-29] MEDS: HumaLOG 300 UNITS/3 ML VIAL SC SCH ×3 (08:20→17:37)
[2019-04-29] MEDS: Sodium Chloride 0.45% 1,000 ML IV SCH ×2 (08:20→17:37)
[2019-04-29] MEDS: ALPRAZolam 1 MG TAB PO PRN (08:20)
[2019-04-29] MEDS: Fioricet 325/50/40 mg Tablet PO PRN (09:52)
--- NOTE | 2019-04-29 18:10 | PDOC.CPN ---
- Subjective Date: 04/29/19 Time: 18:08 Interval history: She had chest pain earlier today. - Review of Systems General: denies: fever/chills, weight/appetite/sleep changes, night sweats, fatigue Respiratory: denies: cough, congestion, shortness of breath, exercise intolerance Cardiovascular: reports: chest pain. denies: palpitation, edema, paroxysmal nocturnal dyspnea, orthopnea Gastrointestinal: denies: nausea, vomiting, diarrhea, constipation, abd pain, GI bleeding Musculoskeletal: reports: pain. denies: tenderness, stiffness, swelling, arthritis/arthralgias Neurological: denies: numbness, syncope, seizure, weakness - Objective Allergies/Adverse Reactions: Allergies Allergy/AdvReac Type Severity Reaction Status Date / Time latex Allergy Verified 01/24/19 22:40 meperidine [From Demerol] Allergy Verified 01/24/19 22:40 morphine Allergy Verified 01/24/19 22:40 aspirin AdvReac Verified 04/27/19 01:49 Visit Medications: Current Medications Acetaminophen/Butalbital/Caffeine (Fioricet) 1 tab PO Q6H PRN PRN Reason: Headache Stop: 05/02/19 03:59 Last Admin: 04/29/19 09:52 Dose: 1 tab Alprazolam (Xanax) 1 mg PO TIDPRN PRN PRN Reason: Anxiety Last Admin: 04/29/19 08:20 Dose: 1 mg Aspirin (Ecotrin) 81 mg PO DAILY [facility] Last Admin: 04/29/19 08:16 Dose: 81 mg Atorvastatin Calcium (Lipitor) 40 mg PO HS [facility] Last Admin: 04/28/19 21:33 Dose: 40 mg Clopidogrel Bisulfate (Plavix) 75 mg PO DAILY [facility] Last Admin: 04/29/19 08:16 Dose: 75 mg Dextrose/Water (Dextrose 50%) 25 gm SLOW IVP PRN PRN PRN Reason: Hypoglycemia Escitalopram Oxalate (Lexapro) 20 mg PO DAILY [facility] Last Admin: 04/29/19 08:15 Dose: 20 mg Fluticasone Propionate (Flonase Nasal [place]) 0 gm NASAL DAILYPRN PRN PRN Reason: nasal stuffiness Furosemide (Lasix) 40 mg PO DAILY [facility] Last Admin: 04/29/19 08:15 Dose: 40 mg Glipizide (Glucotrol) 10 mg PO BID-AC [facility] Last Admin: 04/29/19 16:29 Dose: 10 mg Glucagon (Glucagon) 1 mg IM PRN PRN PRN Reason: Hypoglycemia Hydralazine HCl (Apresoline) 5 mg SLOW IVP Q6H PRN PRN Reason: SBP Greater Than 180 Last Admin: 04/28/19 23:59 Dose: 5 mg Insulin Glargine 60 units/ (Miscellaneous Medication) 0.6 mls @ 0 mls/hr SC [facility] Last Admin: 04/28/19 21:33 Dose: 0.6 mls Dextrose/Water (D5w) 1,000 mls @ 0 mls/hr IV .Q0M PRN PRN Reason: Hypoglycemia Sodium Chloride (1/2 Normal Saline) 1,000 mls @ 125 mls/hr IV .Q8H [facility] Last Admin: 04/29/19 17:37 Dose: 1,000 mls Insulin Human Lispro (Humalog) 30 units SC TID-WM [facility] Last Admin: 04/29/19 17:37 Dose: Not Given Insulin Human Regular (Humulin R) 0 units SC .MILD SLIDING SCALE PRN PRN Reason: Mild Correctional Scale Insulin Human Regular (Humulin R) 0 units SC .BEDTIME SLIDING SC PRN PRN Reason: Bedtime Correctional Scale Last Admin: 04/28/19 21:36 Dose: 3 unit Levothyroxine Sodium (Synthroid) 50 mcg PO DAILY [facility] Last Admin: 04/29/19 08:15 Dose: 50 mcg Lisinopril (Zestril) 2.5 mg PO DAILY [facility] Last Admin: 04/29/19 08:14 Dose: 2.5 mg Metoprolol Tartrate (Lopressor) 12.5 mg PO BID [facility] Last Admin: 04/29/19 08:15 Dose: 12.5 mg Pregabalin (Lyrica) 100 mg PO BID [facility] Last Admin: 04/29/19 08:15 Dose: 100 mg Sodium Chloride (Flush - Normal Saline) 10 ml IVF Q12HR [facility] Last Admin: 04/29/19 08:17 Dose: 10 ml Sodium Chloride (Flush - Normal Saline) 10 ml IVF PRN PRN PRN Reason: Saline Flush Tamsulosin HCl (Flomax) 0.4 mg PO [facility] Last Admin: 04/28/19 21:33 Dose: 0.4 mg Vital Signs & Weight: Vital Signs Temp Pulse Resp BP Pulse Ox 04/29/19 15:06 97.7 F 67 12 151/67 H 99 04/29/19 11:00 97.6 F 66 16 132/63 99 04/29/19 08:10 100 04/29/19 07:34 97.8 F 64 14 154/70 H 100 Weight 191 lb 11.2 oz - Physical Exam General: alert & oriented x3, no apparent distress HEENT: mucus membranes moist, normocephaly Neck: supple neck, midline trachea Cardiac: regular rate and rhythm, no murmur Lungs: clear to auscultation, no wheeze, rales, rhonchi Neuro: coordination normal Abdomen: active bowel sounds, soft, non-tender Extremities: no cyanosis, no clubbing, no edema Skin: clear Musculoskeletal: no pain - Labs Result Diagrams: 04/28/19 21:45 04/28/19 21:46 Troponin/CKMB Troponin I Less than 0.010 ng/mL (< 0.028) 04/27/19 03:00 - Telemetry Sinus rhythms and dysrhythmias: sinus rhythm - Assessment/Plan Assessment/Plan: 1. Unstable angina 2. CAD 3. Fybromyalgia PLAN: - PCI to RCA tomorrow. BMS, right femoral approach.
[2019-04-29] MEDS ORDERED: Communication Order-Pharmacy FS SCH (18:15)
[2019-04-29] MEDS: Atorvastatin Calcium 40 MG TAB PO SCH (21:50)
[2019-04-29] MEDS: Tamsulosin HCl 0.4 MG CAP PO SCH (21:52)
[2019-04-29] MEDS: Insulin Glargine 60 UNITS in Pre-Filled Syringe 1 EACH SC SCH (21:56)
[2019-04-30] MEDS: ALPRAZolam 1 MG TAB PO PRN ×3 (00:16→21:06)
[2019-04-30] MEDS: Sodium Chloride 0.45% 1,000 ML IV SCH (05:21)
[2019-04-30 05:23] LABS: Anion Gap 11 mmol/L (10-20); BUN (Urea Nitrogen) 13 mg/dL (9.8-20.1); Calc. Creatinine Clearance 47 mL/min (70-130); Calcium 8.9 mg/dL (7.8-10.44); Carbon Dioxide 28 mmol/L (23-31); Chloride 103 mmol/L (98-107); Estimated GFR-MDRD 30; Glucose 80 mg/dL (80-115); Potassium 3.8 mmol/L (3.5-5.1); Sodium 138 mmol/L (136-145)
[2019-04-30] MEDS: Aspirin 81 mg Enteric Coated Tablet PO SCH (05:24)
[2019-04-30] MEDS: glipiZIDE 10 MG TAB PO SCH ×2 (05:24→17:41)
[2019-04-30] MEDS: HumaLOG 300 UNITS/3 ML VIAL SC SCH ×3 (05:24→17:51)
[2019-04-30] MEDS: Furosemide 40 MG TAB PO SCH (05:25)
[2019-04-30] MEDS: Escitalopram Oxalate 20 mg Tablet PO SCH (05:25)
[2019-04-30] MEDS: Clopidogrel Bisulfate 75 MG TAB PO SCH (05:25)
[2019-04-30] MEDS: Lisinopril 2.5 MG TAB PO SCH (05:26)
[2019-04-30] MEDS: Levothyroxine Sodium 50 MCG TAB PO SCH (05:26)
[2019-04-30] MEDS: Metoprolol Tartrate 25 MG TAB PO SCH ×2 (05:27→21:03)
[2019-04-30] MEDS: Pregabalin 50 MG CAP PO SCH ×2 (05:27→21:04)
[2019-04-30] MEDS ORDERED: Sodium Chloride 0.9% 1,000 ML IV SCH (06:00)
[2019-04-30] MEDS ORDERED: Lidocaine 1% (PF) 30 ML VIAL ONE (06:55)
[2019-04-30] MEDS ORDERED: Fentanyl 100 MCG/2 ML VIAL ONE (07:44)
[2019-04-30] MEDS ORDERED: Midazolam HCl 2 mg/2 ml Vial ONE (07:44)
[2019-04-30] MEDS ORDERED: Heparin 10,000 UNITS/1 ML VIAL ONE (07:58)
[2019-04-30] MEDS ORDERED: Clopidogrel Bisulfate 300 MG TAB ONE (07:58)
[2019-04-30] MEDS ORDERED: Sodium Chloride 0.9% 500 ML IV SCH (08:45)
[2019-04-30] MEDS ORDERED: Iopamidol 370 76% 50 ML VIAL FS ONE (09:20)
[2019-04-30] MEDS ORDERED: Iopamidol 370 76% 100 ML VIAL ONE (09:20)
[2019-04-30] MEDS: Acetaminophen 325 MG TAB PO PRN (13:52)
[2019-04-30] MEDS: Insulin Regular 300 UNITS/3 ML VIAL SC PRN ×2 (13:53→17:51)
--- NOTE | 2019-04-30 15:54 | PDOC.HOSPP ---
- Subjective Encounter Date: 04/30/19 Encounter Time: 15:51 Subjective: post cath , no pain, sob - Objective Vital Signs & Weight: Vital Signs (12 hours) Temp Pulse Resp BP BP Pulse Ox 04/30/19 15:46 98.1 F 60 16 124/56 L 99 04/30/19 13:26 97.9 F 62 16 130/60 100 04/30/19 12:30 97.9 F 50 L 16 138/62 100 04/30/19 05:26 56 L 04/30/19 04:00 97.8 F 56 L 16 150/67 H 96 Weight Weight 201 lb 9.6 oz I&O: 04/29/19 04/30/19 05/01/19 06:59 06:59 06:59 Intake Total 860 1102 Output Total 800 Balance 60 1102 Result Diagrams: 04/28/19 21:45 04/30/19 04:29 Additional Labs: Accuchecks 04/30/19 04/30/19 04/29/19 13:48 05:56 20:30 POC Glucose 168 H 89 135 H 04/29/19 16:58 POC Glucose 108 Hospitalist ROS - Medication Medications: Active Medications Generic Name Dose Route Start Last Admin Trade Name Freq PRN Reason Stop Dose Admin Acetaminophen 650 mg 04/30/19 13:41 04/30/19 13:52 Tylenol PO 650 mg Q6H PRN Administration Pain Acetaminophen/Butalbital/Caffeine 1 tab 04/27/19 03:58 04/29/19 09:52 Fioricet PO 05/02/19 03:59 1 tab Q6H PRN Administration Headache Alprazolam 1 mg 04/27/19 13:00 04/30/19 13:37 Xanax PO 1 mg TIDPRN PRN Administration Anxiety Aspirin 81 mg 04/28/19 09:00 04/30/19 05:24 Ecotrin PO 81 mg DAILY CECILIA Administration Atorvastatin Calcium 40 mg 04/27/19 21:00 04/29/19 21:50 Lipitor PO 40 mg HS CECILIA Administration Clopidogrel Bisulfate 75 mg 04/28/19 09:00 04/30/19 05:25 Plavix PO 75 mg DAILY CECILIA Administration Escitalopram Oxalate 20 mg 04/28/19 09:00 04/30/19 05:25 Lexapro PO 20 mg DAILY CECILIA Administration Furosemide 40 mg 04/28/19 09:00 04/30/19 05:25 Lasix PO 40 mg DAILY CECILIA Administration Glipizide 10 mg 04/27/19 16:30 04/30/19 05:24 Glucotrol PO Not Given BID-AC CECILIA Hydralazine HCl 5 mg 04/27/19 04:06 04/28/19 23:59 Apresoline SLOW IVP 5 mg Q6H PRN Administration SBP Greater Than 180 Insulin Glargine 60 units/ 0.6 mls @ 0 mls/hr 04/27/19 21:00 04/29/19 21:56 Miscellaneous Medication SC Not Given HS CECILIA Sodium Chloride 500 mls @ 50 mls/hr 04/30/19 08:45 04/30/19 13:28 Normal Saline 0.9% IV 04/30/19 18:44 Not Given .Q10H CECILIA Insulin Human Lispro 30 units 04/27/19 17:00 04/30/19 13:57 Humalog SC Not Given TID-WM CECILIA Insulin Human Regular 0 units 04/27/19 15:18 04/30/19 13:53 Humulin R SC 2 unit .MILD SLIDING SCALE PRN Administration Mild Correctional Scale Insulin Human Regular 0 units 04/27/19 15:18 04/28/19 21:36 Humulin R SC 3 unit .BEDTIME SLIDING SC PRN Administration Bedtime Correctional Scale Levothyroxine Sodium 50 mcg 04/28/19 09:00 04/30/19 05:26 Synthroid PO 50 mcg DAILY CECILIA Administration Lisinopril 2.5 mg 04/28/19 09:00 04/30/19 05:26 Zestril PO 2.5 mg DAILY CECILIA Administration Metoprolol Tartrate 12.5 mg 04/27/19 21:00 04/30/19 05:27 Lopressor PO 12.5 mg BID CECILIA Administration Pregabalin 100 mg 04/27/19 21:00 04/30/19 05:27 Lyrica PO 100 mg BID CECILIA Administration Sodium Chloride 10 ml 04/27/19 21:00 04/30/19 08:22 Flush - Normal Saline IVF Not Given Q12HR CECILIA Tamsulosin HCl 0.4 mg 04/27/19 21:00 04/29/19 21:52 Flomax PO 0.4 mg HS CECILIA Administration - Exam Neck: no JVD Heart: RRR, no murmur Respiratory: CTAB Gastrointestinal: soft, normal bowel sounds Extremities: no edema Hosp A/P (1) Unstable angina Status: Acute (2) CAD (coronary artery disease) Code(s): I25.10 - ATHSCL HEART DISEASE OF [place] CORONARY ARTERY W/O ANG PCTRS Status: Chronic Qualifiers: Coronary Disease-Associated Artery/Lesion type: [place] artery [place] vs. transplanted heart: [place] heart Associated angina: with stable angina Qualified Code(s): I25.118 - Atherosclerotic heart disease of [place] coronary artery with other forms of angina pectoris (3) COPD (chronic obstructive pulmonary disease) Status: Chronic Qualifiers: COPD type: chronic bronchitis (4) DM type 2 (diabetes mellitus, type 2) Status: Chronic Qualifiers: Diabetes mellitus extermination supervisor insulin use: with senior care use Diabetes mellitus complication status: with kidney complications Diabetes mellitus complication detail: with chronic kidney disease Chronic kidney disease stage : stage 3 (moderate) Qualified Code(s): E11.22 - Type 2 diabetes mellitus with diabetic chronic kidney disease; N18.3 - Chronic kidney disease, stage 3 ( moderate); Z79.4 - manager long term care (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 of insulin (5) HTN (hypertension) Code(s): I10 - ESSENTIAL (PRIMARY) HYPERTENSION Status: Chronic Qualifiers: Hypertension type: essential hypertension Qualified Code(s): I10 - Essential (primary) hypertension - Plan severe 3 vessel CAD post stenting cont current meds DC per cardiology
[2019-04-30] MEDS: Insulin Glargine 60 UNITS in Pre-Filled Syringe 1 EACH SC SCH (21:03)
[2019-04-30] MEDS: Atorvastatin Calcium 40 MG TAB PO SCH (21:03)
[2019-04-30] MEDS: Tamsulosin HCl 0.4 MG CAP PO SCH (21:05)
[2019-04-30 21:31] LABS: Hemoglobin 10.3 g/dL (12.0-16.0); Platelet Count 222 thou/uL (130-400)
[2019-05-01 05:49] LABS: #Eosinphils 0.2 thou/uL (0.0-0.7); #Lymphocytes 2.1 thou/uL (1.20-3.40); #Monocytes 0.5 thou/uL (0.11-0.59); #Neutrophils 4.2 thou/uL (1.40-6.50); %Basophils 0.5 % (0.0-1.0); %Eosinophils 2.8 % (0.0-10.0); %Lymphocytes 30.3 % (21.0-51.0); %Monocytes 6.4 % (0.0-10.0); Mean Corpuscular HGB CONC 32.8 g/dL (32.0-36.0); Mean Corpuscular Hemoglobin 27.2 pg (27.0-31.0); Mean Corpuscular Volume 82.8 fL (78.0-98.0); Mean Platelet Volume 8.7 fL (7.4-10.4); Platelet Count 224 thou/uL (130-400); RBC Distribution Width 15.9 % (11.5-14.5); Red Blood Cell (RBC) Count 3.68 mill/uL (4.20-5.40)
[2019-05-01 06:11] LABS: ALT (SGPT) Less than 7 U/L (8-55); AST (SGOT) 6 U/L (5-34); Albumin 3.1 g/dL (3.4-4.8); Alkaline Phosphatase 97 U/L (40-110); Anion Gap 10 mmol/L (10-20); BUN (Urea Nitrogen) 40 mg/dL (9.8-20.1); Bilirubin, Total 0.2 mg/dL (0.2-1.2); Calc. Creatinine Clearance 44 mL/min (70-130); Calcium 8.9 mg/dL (7.8-10.44); Carbon Dioxide 29 mmol/L (23-31); Chloride 103 mmol/L (98-107); Estimated GFR-MDRD 26; Globulin 2.5 g/dL (2.4-3.5); Glucose 83 mg/dL (80-115); Potassium 4.3 mmol/L (3.5-5.1); Protein, Total 5.6 g/dL (6.0-8.3); Sodium 138 mmol/L (136-145)
--- NOTE | 2019-05-01 08:07 | PDOC.HOSPP ---
- Subjective Encounter Date: 05/01/19 Encounter Time: 08:06 Subjective: great, no pain - Objective Vital Signs & Weight: Vital Signs (12 hours) Temp Pulse Resp BP Pulse Ox 05/01/19 07:51 98.6 F 68 16 151/64 H 99 05/01/19 04:00 98.6 F 64 16 126/57 L 96 05/01/19 00:00 98.3 F 56 L 16 113/54 L 95 Weight Weight 203 lb 1.6 oz I&O: 04/30/19 05/01/19 05/02/19 06:59 06:59 06:59 Intake Total 1102 1698 Output Total 900 Balance 1102 798 Result Diagrams: 05/01/19 05:25 05/01/19 05:25 Additional Labs: Accuchecks 05/01/19 04/30/19 04/30/19 05:54 21:04 17:53 POC Glucose 98 113 H 242 H 04/30/19 13:48 POC Glucose 168 H Hospitalist ROS - Medication Medications: Active Medications Generic Name Dose Route Start Last Admin Trade Name Freq PRN Reason Stop Dose Admin Acetaminophen 650 mg 04/30/19 13:41 04/30/19 13:52 Tylenol PO 650 mg Q6H PRN Administration Pain Acetaminophen/Butalbital/Caffeine 1 tab 04/27/19 03:58 04/29/19 09:52 Fioricet PO 05/02/19 03:59 1 tab Q6H PRN Administration Headache Alprazolam 1 mg 04/27/19 13:00 04/30/19 21:06 Xanax PO 1 mg TIDPRN PRN Administration Anxiety Aspirin 81 mg 04/28/19 09:00 04/30/19 05:24 Ecotrin PO 81 mg DAILY CECILIA Administration Atorvastatin Calcium 40 mg 04/27/19 21:00 04/30/19 21:03 Lipitor PO 40 mg HS CECILIA Administration Clopidogrel Bisulfate 75 mg 04/28/19 09:00 04/30/19 05:25 Plavix PO 75 mg DAILY CECILIA Administration Escitalopram Oxalate 20 mg 04/28/19 09:00 04/30/19 05:25 Lexapro PO 20 mg DAILY CECILIA Administration Furosemide 40 mg 04/28/19 09:00 04/30/19 05:25 Lasix PO 40 mg DAILY CECILIA Administration Glipizide 10 mg 04/27/19 16:30 04/30/19 17:41 Glucotrol PO 10 mg BID-AC CECILIA Administration Hydralazine HCl 5 mg 04/27/19 04:06 04/28/19 23:59 Apresoline SLOW IVP 5 mg Q6H PRN Administration SBP Greater Than 180 Insulin Glargine 60 units/ 0.6 mls @ 0 mls/hr 04/27/19 21:00 04/30/19 21:03 Miscellaneous Medication SC Not Given HS CECILIA Insulin Human Lispro 30 units 04/27/19 17:00 04/30/19 17:51 Humalog SC Not Given TID-WM CECILIA Insulin Human Regular 0 units 04/27/19 15:18 04/30/19 17:51 Humulin R SC 3 unit .MILD SLIDING SCALE PRN Administration Mild Correctional Scale Insulin Human Regular 0 units 04/27/19 15:18 04/28/19 21:36 Humulin R SC 3 unit .BEDTIME SLIDING SC PRN Administration Bedtime Correctional Scale Levothyroxine Sodium 50 mcg 04/28/19 09:00 04/30/19 05:26 Synthroid PO 50 mcg DAILY CECILIA Administration Lisinopril 2.5 mg 04/28/19 09:00 04/30/19 05:26 Zestril PO 2.5 mg DAILY CECILIA Administration Metoprolol Tartrate 12.5 mg 04/27/19 21:00 04/30/19 21:03 Lopressor PO 12.5 mg BID CECILIA Administration Pregabalin 100 mg 04/27/19 21:00 04/30/19 21:04 Lyrica PO 100 mg BID CECILIA Administration Sodium Chloride 10 ml 04/27/19 21:00 04/30/19 21:08 Flush - Normal Saline IVF Not Given Q12HR CECILIA Tamsulosin HCl 0.4 mg 04/27/19 21:00 04/30/19 21:05 Flomax PO 0.4 mg HS CECILIA Administration - Exam Neck: no JVD Heart: RRR Respiratory: CTAB Gastrointestinal: soft, normal bowel sounds Extremities: no edema Hosp A/P (1) Unstable angina Status: Acute (2) CAD (coronary artery disease) Code(s): I25.10 - ATHSCL HEART DISEASE OF [place] CORONARY ARTERY W/O ANG PCTRS Status: Chronic Qualifiers: Coronary Disease-Associated Artery/Lesion type: [place] artery [place] vs. 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 Diabetes mellitus complication status: with kidney complications Diabetes mellitus complication detail: with chronic kidney disease Chronic kidney disease stage : stage 3 (moderate) Qualified Code(s): E11.22 - Type 2 diabetes mellitus with diabetic chronic kidney disease; N18.3 - Chronic kidney disease, stage 3 ( moderate); Z79.4 - senior care (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 of insulin (5) HTN (hypertension) Code(s): I10 - ESSENTIAL (PRIMARY) HYPERTENSION Status: Chronic Qualifiers: Hypertension type: essential hypertension Qualified Code(s): I10 - Essential (primary) hypertension - Plan severe 3 vessel CAD post stenting cont current meds DC per cardiology
[2019-05-01] MEDS: Pregabalin 50 MG CAP PO SCH (08:25)
[2019-05-01] MEDS: glipiZIDE 10 MG TAB PO SCH (08:25)
[2019-05-01] MEDS: HumaLOG 300 UNITS/3 ML VIAL SC SCH ×2 (08:25→14:12)
[2019-05-01] MEDS: Aspirin 81 mg Enteric Coated Tablet PO SCH (08:25)
[2019-05-01] MEDS: Lisinopril 2.5 MG TAB PO SCH (08:26)
[2019-05-01] MEDS: Furosemide 40 MG TAB PO SCH (08:28)
[2019-05-01] MEDS: Metoprolol Tartrate 25 MG TAB PO SCH (08:30)
[2019-05-01] MEDS: Escitalopram Oxalate 20 mg Tablet PO SCH (08:30)
[2019-05-01] MEDS: Levothyroxine Sodium 50 MCG TAB PO SCH (08:30)
[2019-05-01] MEDS: ALPRAZolam 1 MG TAB PO PRN (08:32)
[2019-05-01] MEDS: Clopidogrel Bisulfate 75 MG TAB PO SCH (08:32)
--- NOTE | 2019-05-01 09:38 | DIS ---
DATE OF ADMISSION: 04/27/2019 DATE OF DISCHARGE: 05/01/2019 FINAL DIAGNOSES: Unstable angina, multivessel coronary artery disease, diabetes mellitus type 2, hypertension, chronic obstructive pulmonary disease, paroxysmal atrial fibrillation. DISCHARGE MEDICATIONS: 1. Flomax 0.4 mg a day. 2. Atorvastatin 40 mg a day. 3. Lasix 40 mg a day. 4. Lexapro 20 mg a day. 5. Xanax 1 mg t.i.d. p.r.n. 6. Glipizide 10 mg b.i.d. 7. Lyrica 100 mg b.i.d. 8. Levothyroxine 50 mcg a day. 9. NovoLog 30 units subcu t.i.d. 10. Lantus 60 units at bedtime. 11. Plavix 75 mg a day. 12. Metoprolol 12.5 mg twice a day. 13. Aspirin 81 mg a day. 14. Eliquis 5 mg p.o. b.i.d. ALLERGIES: MEPERIDINE, MORPHINE, AND ASPIRIN. HOWEVER, SHE IS ON ASPIRIN AND HAS BEEN ON ASPIRIN. CODE STATUS: Full. DIET: Diabetic. PENDING AT TIME OF DISCHARGE: Nothing. HOSPITAL COURSE: The patient admitted with chest pain, was already scheduled to have a PCI per Cardiology. However, enzymes or stress test were done which were unremarkable. Dr. Moises Peter was consulted. The patient underwent a cardiac cath, had severe three-vessel coronary artery disease, received a stent to the proximal LAD, proximal RCA. The patient is now asymptomatic. Vital signs stable. Cardiorespiratory exam normal. PERTINENT LABORATORY: CBC: White count 6.0, hemoglobin 11.4, and platelet count 248,000. Comprehensive metabolic profile: Sodium 139, potassium 3.2 on admission, which was treated. BUN 28, creatinine 1.49. Blood sugars were monitored and metoprolol has been added to the patient's regimen. She is being discontinued to be followed up by PCP in 1 week to be followed up by Dr. Peter. Job ID: [id number]
[2019-05-01] MEDS: Acetaminophen 325 MG TAB PO PRN (12:57)
[2019-05-01 13:02] VITALS: TEMP 97.5
[2019-05-01 14:08] VITALS: BP 107/46
[2019-05-01] MEDS ORDERED: Apixaban 5 MG TAB PO SCH (21:00)
[2019-05-02] MEDS ORDERED: Levothyroxine Sodium 50 MCG TAB PO SCH (06:00)
== END 2019-05-01 14:40 | disposition home or self-care (01) | DRG 249 ==
LOC: ERS 20:24 → OBSVTOIN 04-27 01:11 → 2SW 04-27 01:11 → 2NO 04-29 18:38
PROVIDERS: ADMIT Internal Medicine; ATTEND Internal Medicine
PROC: 02713EZ Dilation of Coronary Artery, Two Arteries with Two Intraluminal Devices, Percutaneous Approach (ICD-10-PCS; principal; 2019-04-27)
PROC: 4A023N7 Measurement of Cardiac Sampling and Pressure, Left Heart, Percutaneous Approach (ICD-10-PCS; 2019-04-27)
PROC: B2111ZZ Fluoroscopy of Multiple Coronary Arteries using Low Osmolar Contrast (ICD-10-PCS; 2019-04-27)
PROC: B2151ZZ Fluoroscopy of Left Heart using Low Osmolar Contrast (ICD-10-PCS; 2019-04-27)
DX: I25.110 Atherosclerotic heart disease of native coronary artery with unstable angina pectoris (principal); I48.0 Paroxysmal atrial fibrillation; J44.9 Chronic obstructive pulmonary disease, unspecified; E78.5 Hyperlipidemia, unspecified; E03.9 Hypothyroidism, unspecified; G43.909 Migraine, unspecified, not intractable, without status migrainosus; F41.9 Anxiety disorder, unspecified; F32.9 Major depressive disorder, single episode, unspecified; I48.91 Unspecified atrial fibrillation; I25.5 Ischemic cardiomyopathy; I12.9 Hypertensive chronic kidney disease with stage 1 through stage 4 chronic kidney disease, or unspecified chronic kidney disease; N18.3 Chronic kidney disease, stage 3 (moderate); E11.22 Type 2 diabetes mellitus with diabetic chronic kidney disease; M79.7 Fibromyalgia; Z90.710 Acquired absence of both cervix and uterus; Z79.82 Long term (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 of aspirin; Z79.899 Other long term (current) drug therapy; Z79.4 Long term (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 of insulin
CPT/HCPCS: 36415; 36416; 71045; 76942; 78452; 80048; 80053; 82550; 82565; 83690; 84484; 85014; 85018; 85025; 85049; 85347; 90471; 90686; 90732; 92928; 92929; 93005; 93010; 93017; 93454; 93798; 99152; 99153; A9500; C1769; C1876; C1887; G0008; G0009; J0360; J1644; J1815; J2001; J2250; J2785; J3010; J7512; Q9967

== ENCOUNTER 2019-07-31 14:49 | Emergency (ER) | payer OTHER ==
--- NOTE | 2019-07-31 16:04 | CT ---
CT Cervical Spine WO Con Indication: History of fall with neck pain COMPARISON: Prior exam dated January 21, 2018 FINDINGS: Fracture: None. Spinal alignment: No acute malalignment. Craniocervical junction: Within normal limits. Vertebral body heights: Maintained. Cervical spine degenerative change: Stable moderate to severe multilevel spondylosis of the cervical spine. There is stable ankylosis of the left C2-C3 facets. Lung apices: Clear. IMPRESSION: No acute osseous abnormality.
--- NOTE | 2019-07-31 16:06 | RAD ---
Left knee 4 views HISTORY: Left knee injury. FINDINGS: Mild joint space narrowing medial compartment. Mild tricompartmental osteophytosis. No acut e fracture, dislocation, or fluid distention of the suprapatellar bursa. Calcification over the arterial structures. IMPRESSION: Mild osteoarthritic changes. Atherosclerosis.
--- NOTE | 2019-07-31 16:13 | CT ---
CT OF THE ABDOMEN AND PELVIS WITHOUT IV CONTRAST INDICATION: History of fall with abdominal pain, neck pain, thoracic spine pain and lumbar spine pain COMPARISON: CT the abdomen and pelvis without contrast dated February 21, 2019 FINDINGS: This examination is limited for the evaluation of solid organs and vascular structures due to the lac k of intravenous contrast. ABDOMEN: Lung bases: Clear Liver: No focal lesion. Gallbladder: Normal appearing. Pancreas: Normal. Adrenal glands: Normal. Spleen: Normal. Kidneys and ureters: Normal. No hydronephrosis. Vasculature: There are severe vascular calcifications seen involving the visualized vasculature. Lymph nodes:Previously seen left-sided retroperitoneal lymphadenopathy has decreased in prominence fr om the prior exam. Previously seen enlarged left periaortic lymph node now measures 7 mm previously measured 1.6 cm. Free fluid in abdomen:No free fluid is evident. PELVIS: Small and large bowel: There is a circular metallic radiodensity within a loop of mid to distal small bowel, right of midline of the mid abdomen, on image 55 of series 2 and image 54 of the coronal series. This is suspicious for an ingested battery. Appendix:Normal Bladder: Normal. Rectal and perirectal soft tissues:Normal. Reproductive structures: Normal. Free fluid in pelvis: No free fluid is evident. Lymphadenopathy pelvis: No lymphadenopathy is evident. Osseous structures: No acute osseous abnormality. No destructive osteolytic or osteoblastic lesion i s identified. There is scattered degenerative and osteoarthritic changes. There is a bony hemangioma within the left T7 vertebral level Soft tissues:Normal. IMPRESSION: 1. Circular metallic radiodensity within a loop of the mid to distal small bowel, right of midline wi thin the mid abdomen, suspicious for ingestion of a metallic foreign body such as a metallic button, battery or unusual coin. Findings called to Daxa Vincent, nurse practitioner at 4:10 PM on Jul. 2. No acute injury evident within the limitations of this noncontrast exam.
[2019-07-31 16:46] LABS: #Eosinphils 0.2 thou/uL (0.0-0.7); #Lymphocytes 1.3 thou/uL (1.20-3.40); #Monocytes 0.4 thou/uL (0.11-0.59); #Neutrophils 2.4 thou/uL (1.40-6.50); %Basophils 0.9 % (0.0-1.0); %Eosinophils 3.9 % (0.0-10.0); %Lymphocytes 30.3 % (21.0-51.0); Mean Corpuscular HGB CONC 32.7 g/dL (32.0-36.0); Mean Corpuscular Hemoglobin 28.2 pg (27.0-31.0); Mean Corpuscular Volume 86.1 fL (78.0-98.0); Mean Platelet Volume 8.9 fL (7.4-10.4); Platelet Count 170 thou/uL (130-400); RBC Distribution Width 12.8 % (11.5-14.5); Red Blood Cell (RBC) Count 3.91 mill/uL (4.20-5.40); White Blood Cell (WBC) Count 4.4 thou/uL (4.8-10.8)
[2019-07-31] MEDS ORDERED: Ketorolac Tromethamine 30 MG/ML VIAL ONE (16:53)
[2019-07-31 17:14] LABS: ALT (SGPT) 9 U/L (8-55); AST (SGOT) 11 U/L (5-34); Albumin 3.6 g/dL (3.4-4.8); Alkaline Phosphatase 126 U/L (40-110); Anion Gap 14 mmol/L (10-20); BUN (Urea Nitrogen) 49 mg/dL (9.8-20.1); Bilirubin, Total 0.6 mg/dL (0.2-1.2); Calc. Creatinine Clearance 0 mL/min (70-130); Calcium 9.3 mg/dL (7.8-10.44); Carbon Dioxide 29 mmol/L (23-31); Chloride 103 mmol/L (98-107); Estimated GFR-MDRD 26; Glucose 224 mg/dL (80-115); Lipase 104 U/L (8-78); Protein, Total 6.6 g/dL (6.0-8.3); Sodium 142 mmol/L (136-145)
[2019-07-31 17:54] LABS: PTT 36.7 SEC (22.9-36.1)
[2019-07-31 18:02] LABS: INR-International Normal Ratio 1.2; Prothrombin Time 15.2 SEC (12.0-14.7)
== END 2019-07-31 20:22 | disposition home or self-care (01) ==
LOC: ERS 14:49
DX: T18.3XXA Foreign body in small intestine, initial encounter (principal); M25.562 Pain in left knee; M54.2 Cervicalgia; M54.5 Low back pain; M54.6 Pain in thoracic spine; E11.9 Type 2 diabetes mellitus without complications; I25.2 Old myocardial infarction; G43.909 Migraine, unspecified, not intractable, without status migrainosus; F41.9 Anxiety disorder, unspecified; F32.9 Major depressive disorder, single episode, unspecified; E03.9 Hypothyroidism, unspecified; E78.00 Pure hypercholesterolemia, unspecified; J44.9 Chronic obstructive pulmonary disease, unspecified; Z79.4 Long term (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 of insulin; Z79.899 Other long term (current) drug therapy; W17.89XA Other fall from one level to another, initial encounter
CPT/HCPCS: 36415; 72125; 74176; 80053; 83605; 83690; 85025; 85610; 85730; 86850; 86900; 86901; 96374; J1885

== ENCOUNTER 2019-08-19 21:45 | Inpatient (IN) | payer OTHER ==
[2019-08-19 22:24] LABS: #Eosinphils 0.2 thou/uL (0.0-0.7); #Lymphocytes 1.9 thou/uL (1.20-3.40); #Monocytes 0.4 thou/uL (0.11-0.59); #Neutrophils 3.6 thou/uL (1.40-6.50); %Basophils 0.7 % (0.0-1.0); %Eosinophils 3.1 % (0.0-10.0); %Monocytes 6.4 % (0.0-10.0); %Neutrophils 58.7 % (42.0-75.0); Hemoglobin 10.2 g/dL (12.0-16.0); Mean Corpuscular HGB CONC 33.6 g/dL (32.0-36.0); Mean Corpuscular Volume 86.4 fL (78.0-98.0); Platelet Count 203 thou/uL (130-400); RBC Distribution Width 12.4 % (11.5-14.5); Red Blood Cell (RBC) Count 3.51 mill/uL (4.20-5.40); White Blood Cell (WBC) Count 6.1 thou/uL (4.8-10.8)
--- NOTE | 2019-08-19 22:27 | RAD ---
Chest AP view INDICATION: Chest pain COMPARISON: April 26, 2019 FINDINGS: Lungs:The lungs are clear Cardiac silhouette:The cardiomediastinal silhouette appears within normal limits. Pulmonary vasculature:Normal Pleural spaces:No pleural effusion or pneumothorax is demonstrated. Upper abdomen:No abnormality seen. Osseous structures: No acute osseous abnormality. Additional findings:None. IMPRESSION: No acute cardiopulmonary abnormality.
[2019-08-19 22:40] LABS: ALT (SGPT) Less than 7 U/L (8-55); AST (SGOT) 8 U/L (5-34); Albumin 3.5 g/dL (3.4-4.8); Alkaline Phosphatase 118 U/L (40-110); Anion Gap 12 mmol/L (10-20); BUN (Urea Nitrogen) 44 mg/dL (9.8-20.1); Bilirubin, Total 0.4 mg/dL (0.2-1.2); Calc. Creatinine Clearance 0 mL/min (70-130); Carbon Dioxide 28 mmol/L (23-31); Chloride 104 mmol/L (98-107); Estimated GFR-MDRD 28; Globulin 2.8 g/dL (2.4-3.5); Glucose 248 mg/dL (80-115); Lipase 85 U/L (8-78); Potassium 4.3 mmol/L (3.5-5.1); Protein, Total 6.3 g/dL (6.0-8.3); Sodium 140 mmol/L (136-145)
[2019-08-19 23:03] LABS: CKMB 0.8 ng/mL (0-6.6)
[2019-08-20 01:34] LABS: Troponin I 0.186 ng/mL (< 0.028)
[2019-08-20] MEDS ORDERED: Ondansetron ODT 4 MG TAB PO PRN (01:50)
[2019-08-20] MEDS ORDERED: Fluticasone Propionate Nasal Spray 16 gm Bottle NASAL PRN (01:52)
--- NOTE | 2019-08-20 01:53 | PDOC.HHP ---
Hospitalist HPI - History of Present Illness chest pain History of Present Illness: This is a 63 year old female with a past medical history of CAD, COPD, hypertension, diabetes, hypothyroidism, who presented to the ER with chest pain. The patient states that her chest pain started two days ago and progressively got worst. It started in the anterior part of her chest and started moving between her shoulder blades. She describes the pain as someone sitting on her chest. Her chest pain is worst with movement and she has associated shortness of breath laying down to where she has to sit up-right in an incline. She feels like someone is shaking her chest, but denies palpitations, dizziness or lightheadedness. Her pain is not associated with eating. She reports left arm numbness. SHe denies cough, fevers or chills. She denies abdominal pain, nausea, vomiting or diarrhea. THe patient feels that her pain is similar to the pain she had during her last heart attacks. The patient had cardiac cath done in 04/2019 and was found to have 70% stenosis in the LAD and 80% in the RCA. She had BMS placed in both vessels. The patient also complains of inability to urinate and only urinated once today but she is drinking adequate amounts of water. Patient reports compliance with all of her medications. SHe does not take aspirin due to an allergy. ED Course: The patient presented with normal vital signs. EKG showed normal sinus rhythm with first degree AV block. CBC showed hemoglobin of 10.2. BMP showed creatinine of 1.84 which is the patient's baseline. Troponin was slightly elevated at 0.178 which increased to 0.186. Chest X ray showed no acute disease. THe patient was given 3 nitro tabs, 1 inch nitro and 100 mcg fentanyl with alleviation of her pain. Hospitalist ROS - Review of Systems Constitutional: denies: fever, chills Eyes: denies: vision change ENT: denies: ear pain, ear discharge, mouth pain Respiratory: reports: shortness of breath. denies: cough, dry Cardiovascular: reports: chest pain, orthopnea. 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: Migraine Psych: reports: Anxiety, Depression Musculoskeletal: reports: Osteoarthritis Rheumatologic: reports: Fibromyalgia Renal/: reports: Acute renal failure Endocrine: reports: Diabetes, Hypothyroidism Other Medical History: Spinal stenosis Diverticulosis Stage IV kidney disease Atrial fibrillation - Past Surgical History Past Surgical History: reports: Hysterectomy Other Surgical History: Surgery right leg 1995 Partial hysterectomy Cyst removal left arm Cyst removal left shoulder and back Bone graft on leg - Family History Other Family History: Heart disease in family Cancer in family Lost sister 4 years ago due to ovarian cancer Kidney failure in family - Social History Smoking Status: Never smoker Alcohol: reports: None Drugs: reports: Other (Used marijuana in the past..) - Exam General Appearance: NAD, awake alert Eye: PERRL, anicteric sclera ENT: normocephalic atraumatic, no oropharyngeal lesions Neck: supple, no JVD Heart: RRR, no murmur, no gallops, no rubs Respiratory: CTAB, no wheezes, no rales, no ronchi Gastrointestinal: soft, non-tender, non-distended Extremities: no cyanosis, no clubbing, no edema Skin: normal turgor, no lesions, no rashes Neurological: cranial nerve grossly intact, normal sensation to touch, no focal deficits, no new deficit Musculoskeletal: normal tone, normal strength, no muscle wasting Musculoskeletal - other findings: bilateral tend to palpation of spine and chest area Psychiatric: normal affect, normal behavior, A&O x 3, oriented to person Hospitalist Results - Labs Result Diagrams: 08/19/19 22:17 08/19/19 22:17 Lab results: WBC 6.1 thou/uL (4.8-10.8) 08/19/19 22:17 Hgb 10.2 g/dL (12.0-16.0) L 08/19/19 22:17 Hct 30.3 % (36.0-47.0) L 08/19/19 22:17 MCV 86.4 fL (78.0-98.0) 08/19/19 22:17 Plt Count 203 thou/uL (130-400) 08/19/19 22:17 Neutrophils % 58.7 % (42.0-75.0) 08/19/19 22:17 Sodium 140 mmol/L (136-145) 08/19/19 22:17 Potassium 4.3 mmol/L (3.5-5.1) 08/19/19 22:17 Chloride 104 mmol/L (98-107) 08/19/19 22:17 Carbon Dioxide 28 mmol/L (23-31) 08/19/19 22:17 BUN 44 mg/dL (9.8-20.1) H 08/19/19 22:17 Creatinine 1.84 mg/dL (0.6-1.1) H 08/19/19 22:17 Glucose 248 mg/dL (80-115) H 08/19/19 22:17 Calcium 9.0 mg/dL (7.8-10.44) 08/19/19 22:17 Total Bilirubin 0.4 mg/dL (0.2-1.2) 08/19/19 22:17 AST 8 U/L (5-34) 08/19/19 22:17 ALT Less than 7 U/L (8-55) L 08/19/19 22:17 Alkaline Phosphatase 118 U/L (40-110) H 08/19/19 22:17 CK-MB (CK-2) 0.8 ng/mL (0-6.6) 08/19/19 22:17 Troponin I 0.186 ng/mL (< 0.028) H 08/20/19 01:01 B-Natriuretic Peptide 246.9 pg/mL (0-100) H 08/19/19 22:17 Serum Total Protein 6.3 g/dL (6.0-8.3) 08/19/19 22:17 Albumin 3.5 g/dL (3.4-4.8) 08/19/19 22:17 Lipase 85 U/L (8-78) H 08/19/19 22:17 - EKG Interpretation EKG: normal sinus rhythm with first degree AV block Hospitalist H&P A/P - Plan Plan: This is a 63 year old female with past medical history of CAD s/p PCI, diabetes , COPD, depression, anxiety who presents to the hospital with chest pain Chest pain - possibly NSTEMI versus musculoskeletal CAD s/p PCI - EKG shows no new changes, troponin elevated and trending up. - had cardiac cath 04/2019 with severe disease in RCA and LAD. S/p BMS placement to both vessels - will repeat ECHO - consult Dr. Peter in am - keep NPO for now - resume plavix and statin. Not on aspirin due to anemia - patient has diffuse chest wall and back tenderness. Could also be fibromyalgia. Will order lidocaine patch Atrial fibrillation - continue eliquis and metoprolol Depression - continue celexa Type II diabetes - hold glipizide Hypothyroidism - continue levothyroxine COPD - stable Anemia - Hb 10., STable. Iron studies, B12/folate/TSH unremarkable in March - had normal EGD and colonosocopy only significanit for polyp in 03/2019 Code status: full code
[2019-08-20] MEDS ORDERED: tiZANidine HCl 4 MG TAB PO PRN (02:16)
[2019-08-20] MEDS ORDERED: Dextrose 5% in Water 1,000 ML IV PRN (02:16)
[2019-08-20] MEDS ORDERED: Dextrose 50% Abboject 50 ML SYRINGE SLOW IVP PRN (02:16)
--- NOTE | 2019-08-20 02:20 | PDOC.FMACP ---
Advance Care Planning - Note Participants: patient Summary: Advanced Care Planning was discussed. The diagnosis, prognosis and goals of care were discussed. Appropriate forms and documentation to accomplish the goals of care were discussed. All questions were answered. The Palliative Care Team will be engaged to assist with completion of any outstanding forms that are needed. Patient wishes to be full code. However she would not want prolonged life support to keep her alive Time Spent (mins): 30
[2019-08-20] MEDS ORDERED: Lidocaine 5% Patch TD SCH (02:30)
[2019-08-20 04:32] LABS: #Basophils 0.1 thou/uL (0.0-0.2); #Eosinphils 0.2 thou/uL (0.0-0.7); #Monocytes 0.4 thou/uL (0.11-0.59); %Basophils 1.1 % (0.0-1.0); %Eosinophils 3.8 % (0.0-10.0); %Lymphocytes 35.4 % (21.0-51.0); %Monocytes 7.7 % (0.0-10.0); %Neutrophils 52.2 % (42.0-75.0); Hemoglobin 10.1 g/dL (12.0-16.0); Mean Corpuscular HGB CONC 34.7 g/dL (32.0-36.0); Mean Corpuscular Hemoglobin 29.7 pg (27.0-31.0); Mean Corpuscular Volume 85.5 fL (78.0-98.0); Mean Platelet Volume 9.2 fL (7.4-10.4); Platelet Count 192 thou/uL (130-400); RBC Distribution Width 12.4 % (11.5-14.5); Red Blood Cell (RBC) Count 3.39 mill/uL (4.20-5.40); White Blood Cell (WBC) Count 5.8 thou/uL (4.8-10.8)
[2019-08-20 04:51] LABS: Anion Gap 13 mmol/L (10-20); BUN (Urea Nitrogen) 44 mg/dL (9.8-20.1); Calc. Creatinine Clearance 53 mL/min (70-130); Carbon Dioxide 25 mmol/L (23-31); Chloride 106 mmol/L (98-107); Estimated GFR-MDRD 31; Glucose 283 mg/dL (80-115); Sodium 140 mmol/L (136-145)
[2019-08-20 04:58] LABS: Troponin I 0.157 ng/mL (< 0.028)
[2019-08-20] MEDS: Levothyroxine Sodium 50 MCG TAB PO SCH (05:50)
[2019-08-20] MEDS: Pregabalin 50 MG CAP PO SCH ×2 (08:43→20:49)
[2019-08-20] MEDS: Clopidogrel Bisulfate 75 MG TAB PO SCH (08:44)
[2019-08-20] MEDS: Multivit, Therapeutic 1 TAB PO SCH (08:44)
[2019-08-20] MEDS: Escitalopram Oxalate 20 mg Tablet PO SCH ×2 (08:44→08:47)
[2019-08-20] MEDS: Carvedilol 6.25 MG TAB PO SCH ×2 (08:45→20:49)
[2019-08-20] MEDS: ALPRAZolam 1 MG TAB PO PRN ×2 (08:49→20:50)
[2019-08-20] MEDS ORDERED: Aspirin 81 mg Enteric Coated Tablet PO SCH (09:00)
[2019-08-20] MEDS ORDERED: Metoprolol Tartrate 25 MG TAB PO SCH (09:00)
[2019-08-20] MEDS ORDERED: Heparin 5,000 UNITS/ML VIAL SC SCH (09:00)
[2019-08-20] MEDS ORDERED: Apixaban 5 MG TAB PO SCH (09:00)
[2019-08-20] MEDS: HumaLOG 300 UNITS/3 ML VIAL SC PRN (12:31)
[2019-08-20] MEDS ORDERED: Lidocaine Patch Removal 1 EACH TOP SCH (14:30)
--- NOTE | 2019-08-20 19:27 | CON ---
DATE OF CONSULTATION: 08/20/2019 REASON FOR CONSULTATION: Chest tightness. [employer] OPERATOR: Moises Peter MD HISTORY OF PRESENT ILLNESS: Ms. Mendez is a very pleasant 63-year-old white female, who comes to the hospital for chest pain. She states she developed chest tightness, felt like a pressure in her midsternal area. This was the exact same sensation she had before her previous stents. She was admitted for rule out and has had indeterminate troponins. She currently is telling me that her pain is gone. She is pain free. She had a regional bare metal stent placed in January of last year in the LAD, had residual RCA disease which was treated back in April and at that time, she had a new lesion proximal to the bare metal stent in the LAD, so this was also stented with a bare-metal stent. She was asymptomatic. She followed up in the office one or two times and she was doing very well. This is the first time she has had any chest pain since the last stent. PAST MEDICAL HISTORY: 1. Coronary artery disease as above. 2. Type 2 diabetes. 3. Hypothyroidism. 4. Hyperlipidemia. 5. COPD. 6. Hypertension. 7. Bradycardia. 8. Fibromyalgia. 9. Migraine headaches. 10. Anxiety and depression. 11. Paroxysmal atrial fibrillation. PAST SURGICAL HISTORY: 1. PCI to the RCA and LAD. 2. Hysterectomy. 3. Right leg surgery. 4. Cyst removal from left shoulder, neck, and axilla. SOCIAL HISTORY: No alcohol, tobacco, or drugs. OUTPATIENT MEDICATIONS: Include; 1. Lexapro 10 mg a day. 2. Xanax. 3. Tizanidine. 4. Multivitamin. 5. Lisinopril 10 mg a day. 6. Carvedilol 12.5 b.i.d. 7. Flonase. 8. Plavix 75 mg a day. 9. Atorvastatin 40 mg at bedtime. 10. Eliquis 5 mg b.i.d. 11. Insulin NovoLog. 12. Lantus. 13. Furosemide 40 mg a day. 14. Glipizide 10 mg b.i.d. 15. Lyrica 100 mg b.i.d. 16. Levothyroxine 50 mcg a day. ALLERGIES: 1. LATEX. 2. MEPERIDINE. 3. MORPHINE. 4. ASPIRIN. FAMILY HISTORY: Noncontributory. REVIEW OF SYSTEMS: A 12-point review of systems was done and was all negative unless stated in the history of present illness. PHYSICAL EXAMINATION: VITAL SIGNS: Temperature 97.9, pulse 76, respiratory rate 15, sat 99% on room air, and blood pressure 103/75. GENERAL: Awake, alert, and oriented x3. No distress. HEENT: Normocephalic and atraumatic. NECK: Supple. LUNGS: Clear. CARDIOVASCULAR: S1 and S2. No S3 or S4. No murmurs. ABDOMEN: Soft. Positive bowel sounds. EXTREMITIES: 1+ edema. SKIN: Warm and dry. LABORATORY DATA: Laboratory work was reviewed. White count of 6, hemoglobin of 10.2, hematocrit of 30, and platelet count of 203. Chemistries unremarkable except for creatinine of 1.6 and a GFR of 31, BUN of 44. Troponin was indeterminate range of 0.17, 0.18, and 0.15. EKG was reviewed. Chest x-ray was reviewed. ASSESSMENT AND PLAN: 1. Unstable angina. 2. History of coronary artery disease, status post bare-metal stent into the right coronary artery and left anterior descending. 3. Paroxysmal atrial fibrillation, on full anticoagulation with Eliquis. PLAN: 1. We will plan on further risk stratification with a heart catheterization. We spoke at length with risks and benefits of the procedure. Risks included, but not limited to stroke, [place], , bleeding, need for blood transfusion, limb loss, organ loss. The patient understands, verbalized understanding of this and agrees to proceed. She has been through this at least twice in the past, so she knows what this is about. We spoke about possibly re-stenting if there was in-stent restenosis. If this is the case, we would recommend drug-eluting stents at that time given her in-stent restenoses rate. She has not had any bleeding issues with both Eliquis and Plavix at the same time, but this would be her best chance as to not re-stenose. 2. She understands verbalized understanding of this and agrees to proceed in this manner. 3. We will plan on doing this Sunday after Eliquis is worn out. 4. Right femoral access. Job ID: [id number]
[2019-08-20] MEDS: Nitroglycerin 0.4 MG TAB (25 Tab Bottle) SL PRN ×3 (19:35→19:45)
[2019-08-20 20:46] LABS: CKMB 0.7 ng/mL (0-6.6)
[2019-08-20] MEDS: Atorvastatin Calcium 40 MG TAB PO SCH (20:47)
[2019-08-20] MEDS ORDERED: Tamsulosin HCl 0.4 MG CAP PO SCH (21:00)
[2019-08-21] MEDS: Levothyroxine Sodium 50 MCG TAB PO SCH (04:48)
[2019-08-21] MEDS: Acetaminophen 325 MG TAB PO PRN ×2 (04:48→18:06)
[2019-08-21] MEDS: Escitalopram Oxalate 20 mg Tablet PO SCH ×2 (08:14→08:15)
[2019-08-21] MEDS: Carvedilol 6.25 MG TAB PO SCH ×2 (08:15→20:31)
[2019-08-21] MEDS: Clopidogrel Bisulfate 75 MG TAB PO SCH (08:15)
[2019-08-21] MEDS: Multivit, Therapeutic 1 TAB PO SCH (08:15)
[2019-08-21] MEDS: Pregabalin 50 MG CAP PO SCH ×2 (08:16→20:30)
[2019-08-21] MEDS: Lidocaine 5% Patch TD SCH (08:16)
[2019-08-21] MEDS: HumaLOG 300 UNITS/3 ML VIAL SC PRN ×4 (08:18→22:42)
[2019-08-21 08:54] LABS: Hemoglobin 10.6 g/dL (12.0-16.0); Platelet Count 205 thou/uL (130-400)
--- NOTE | 2019-08-21 13:49 | PDOC.HOSPP ---
- Subjective Encounter Date: 08/21/19 Encounter Time: 07:20 Subjective: Pt seen for followup re: NSTEMI. No chest pain today. - Objective Vital Signs & Weight: Vital Signs (12 hours) Temp Pulse Resp BP BP Pulse Ox 08/21/19 11:32 96.3 F L 68 14 122/59 L 98 08/21/19 08:09 97.6 F 76 16 149/66 H 97 08/21/19 04:00 97.6 F 80 16 142/63 H 97 Weight Weight 211 lb 8 oz I&O: 08/20/19 08/21/19 08/22/19 06:59 06:59 06:59 Intake Total 300 Output Total 500 Balance -200 Result Diagrams: 08/21/19 08:42 08/21/19 08:42 Additional Labs: Accuchecks 08/21/19 08/21/19 08/20/19 10:52 05:21 19:54 POC Glucose 351 H 274 H 236 H 08/20/19 16:36 POC Glucose 234 H Labs and MARs reviewed by me EKG Reviewed by me: Yes (Tele: NSR) Hospitalist ROS - Review of Systems Cardiovascular: denies: chest pain, palpitations, orthopnea, paroxysmal noc. dyspnea, edema, light headedness Gastrointestinal: denies: nausea, vomiting, abdominal pain, diarrhea, constipation, melena, hematochezia - Medication Medications: Active Medications Generic Name Dose Route Start Last Admin Trade Name Freq PRN Reason Stop Dose Admin Acetaminophen 650 mg 08/20/19 01:50 08/21/19 04:48 Tylenol PO 650 mg Q4H PRN Administration Headache/Fever/Mild Pain (1-3) Alprazolam 1 mg 08/20/19 02:16 08/20/19 20:50 Xanax PO 1 mg TID PRN Administration Anxiety Atorvastatin Calcium 40 mg 08/20/19 21:00 08/20/19 20:47 Lipitor PO 40 mg HS CECILIA Administration Carvedilol 12.5 mg 08/20/19 09:00 08/21/19 08:15 Coreg PO 12.5 mg BID CECILIA Administration Clopidogrel Bisulfate 75 mg 08/20/19 09:00 08/21/19 08:15 Plavix PO 75 mg DAILY CECILIA Administration Escitalopram Oxalate 20 mg 08/20/19 09:00 08/21/19 08:14 Lexapro PO 20 mg DAILY CECILIA Administration Escitalopram Oxalate 20 mg 08/20/19 09:00 08/21/19 08:15 Lexapro PO Not Given DAILY [facility] Insulin Human Lispro 0 units 08/20/19 02:16 08/21/19 11:37 Humalog SC 6 unit .MILD SLIDING SCALE PRN Administration Mild Correctional Scale Levothyroxine Sodium 50 mcg 08/20/19 06:00 08/21/19 04:48 Synthroid PO 50 mcg 0600 CECILIA Administration Lidocaine 1 patch 08/21/19 09:00 08/21/19 08:16 Lidoderm 5% Patch TD 1 patch DAILY CECILIA Administration Multivitamins 1 tab 08/20/19 09:00 08/21/19 08:15 Theragran PO 1 tab DAILY CECILIA Administration Nitroglycerin 0.4 mg 08/20/19 02:17 08/20/19 19:45 Nitrostat SL 1 tab Q5MIN PRN Administration Chest Pain Ondansetron HCl 4 mg 08/20/19 01:50 08/21/19 04:50 Zofran Odt PO 4 mg Q6H PRN Administration Nausea/Vomiting Pregabalin 100 mg 08/20/19 09:00 08/21/19 08:16 Lyrica PO 100 mg BID CECILIA Administration Tizanidine HCl 4 mg 08/20/19 02:16 08/20/19 19:52 Zanaflex PO 4 mg DAILY PRN Administration Allergies - Exam General - other findings: Obese Eye: anicteric sclera ENT: moist mucosa Neck: supple Heart: RRR Respiratory: CTAB, no rales Gastrointestinal: soft, non-tender Skin: no rashes Psychiatric: normal affect, normal behavior Hosp A/P (1) NSTEMI (non-ST elevated myocardial infarction) Code(s): I21.4 - NON-ST ELEVATION (NSTEMI) MYOCARDIAL INFARCTION Status: Acute (2) Afib Code(s): I48.91 - UNSPECIFIED ATRIAL FIBRILLATION Status: Chronic (3) COPD (chronic obstructive pulmonary disease) Status: Chronic Qualifiers: COPD type: chronic bronchitis (4) DM type 2 (diabetes mellitus, type 2) Status: Chronic Qualifiers: 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 use: with local intermodal truck driver use Diabetes mellitus complication status: with kidney complications Diabetes mellitus complication detail: with chronic kidney disease Chronic kidney disease stage : stage 3 (moderate) Qualified Code(s): E11.22 - Type 2 diabetes mellitus with diabetic chronic kidney disease; N18.3 - Chronic kidney disease, stage 3 ( moderate); Z79.4 - MCFP (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 of insulin (5) Dyslipidemia Code(s): E78.5 - HYPERLIPIDEMIA, UNSPECIFIED Status: Chronic (6) HTN (hypertension) Code(s): I10 - ESSENTIAL (PRIMARY) HYPERTENSION Status: Chronic Qualifiers: Hypertension type: essential hypertension Qualified Code(s): I10 - Essential (primary) hypertension (7) Chronic kidney disease, stage 3 Code(s): N18.3 - CHRONIC KIDNEY DISEASE, STAGE 3 (MODERATE) Status: Chronic (8) Depression Code(s): F32.9 - MAJOR DEPRESSIVE DISORDER, SINGLE EPISODE, UNSPECIFIED Status : Chronic - Plan For cath tomorrow. CKD stable. Depression mild, stable, continue Celexa. Siwthc to moderate insulin sliding scale, start 1800 aries diet Monitor vital signs and titrate antihypertensives as needed. Yuli on hold for cath
[2019-08-21] MEDS ORDERED: Communication Order-Pharmacy FS SCH (17:30)
--- NOTE | 2019-08-21 19:10 | PDOC.CPN ---
- Subjective Date: 08/21/19 Time: 19:07 Interval history: Doing well. No more chest pain, does complaint of back pain. - Review of Systems General: denies: fever/chills, weight/appetite/sleep changes, night sweats, fatigue Respiratory: denies: cough, congestion, shortness of breath, exercise intolerance Cardiovascular: denies: chest pain, palpitation, edema, paroxysmal nocturnal dyspnea, orthopnea Gastrointestinal: denies: nausea, vomiting, diarrhea, constipation, abd pain, GI bleeding Musculoskeletal: denies: pain, tenderness, stiffness, swelling, arthritis/ arthralgias Neurological: denies: numbness, syncope, seizure, weakness - Objective Allergies/Adverse Reactions: Allergies Allergy/AdvReac Type Severity Reaction Status Date / Time latex Allergy Verified 01/24/19 22:40 meperidine [From Demerol] Allergy Verified 01/24/19 22:40 morphine Allergy Verified 01/24/19 22:40 aspirin AdvReac Verified 04/27/19 01:49 Visit Medications: Current Medications Acetaminophen (Tylenol) 650 mg PO Q4H PRN PRN Reason: Headache/Fever/Mild Pain (1-3) Last Admin: 08/21/19 18:06 Dose: 650 mg Alprazolam (Xanax) 1 mg PO TID PRN PRN Reason: Anxiety Last Admin: 08/20/19 20:50 Dose: 1 mg Atorvastatin Calcium (Lipitor) 40 mg PO HS [facility] Last Admin: 08/20/19 20:47 Dose: 40 mg Carvedilol (Coreg) 12.5 mg PO BID [facility] Last Admin: 08/21/19 08:15 Dose: 12.5 mg Clopidogrel Bisulfate (Plavix) 75 mg PO DAILY [facility] Last Admin: 08/21/19 08:15 Dose: 75 mg Dextrose/Water (Dextrose 50%) 25 gm SLOW IVP PRN PRN PRN Reason: Hypoglycemia Escitalopram Oxalate (Lexapro) 20 mg PO DAILY [facility] Last Admin: 08/21/19 08:14 Dose: 20 mg Escitalopram Oxalate (Lexapro) 20 mg PO DAILY [facility] Last Admin: 08/21/19 08:15 Dose: Not Given Fluticasone Propionate (Flonase Nasal [place]) 0 gm NASAL DAILYPRN PRN PRN Reason: nasal stuffiness Glucagon (Glucagon) 1 mg IM PRN PRN PRN Reason: Hypoglycemia Dextrose/Water (D5w) 1,000 mls @ 0 mls/hr IV .Q0M PRN PRN Reason: Hypoglycemia Sodium Chloride (Normal Saline 0.9%) 500 mls @ 50 mls/hr IV .Q10H [facility] Stop: 08/22/19 10:00 Insulin Human Lispro (Humalog) 0 units SC .MODERATE SLIDING SC PRN PRN Reason: Moderate Correctional Scale Last Admin: 08/21/19 17:59 Dose: 6 unit Levothyroxine Sodium (Synthroid) 50 mcg PO 0600 [facility] Last Admin: 08/21/19 04:48 Dose: 50 mcg Lidocaine (Lidoderm 5% Patch) 1 patch TD DAILY [facility] Last Admin: 08/21/19 08:16 Dose: 1 patch Miscellaneous Information (Communication Order-Pharmacy) 0 each FS ONE [facility] Stop: 08/21/19 23:59 Miscellaneous Medication (Lidocaine Patch Removal) 1 each TOP 2100 [facility] Multivitamins (Theragran) 1 tab PO DAILY [facility] Last Admin: 08/21/19 08:15 Dose: 1 tab Nitroglycerin (Nitrostat) 0.4 mg SL Q5MIN PRN PRN Reason: Chest Pain Last Admin: 08/20/19 19:45 Dose: 1 tab Ondansetron HCl (Zofran Odt) 4 mg PO Q6H PRN PRN Reason: Nausea/Vomiting Last Admin: 08/21/19 04:50 Dose: 4 mg Pregabalin (Lyrica) 100 mg PO BID [facility] Last Admin: 08/21/19 08:16 Dose: 100 mg Tizanidine HCl (Zanaflex) 4 mg PO DAILY PRN PRN Reason: Allergies Last Admin: 08/20/19 19:52 Dose: 4 mg Vital Signs & Weight: Vital Signs Temp Pulse Resp BP Pulse Ox 08/21/19 16:42 97.3 F L 86 18 147/69 H 99 08/21/19 11:32 96.3 F L 68 14 122/59 L 98 08/21/19 08:09 97.6 F 76 16 149/66 H 97 Weight 211 lb 8 oz - Physical Exam General: alert & oriented x3 HEENT: mucus membranes moist Neck: supple neck Cardiac: regular rate and rhythm Lungs: clear to auscultation Neuro: grossly intact Abdomen: active bowel sounds Extremities: no edema Skin: clear Musculoskeletal: no fluid collection - Labs Result Diagrams: 08/21/19 08:42 08/21/19 08:42 Troponin/CKMB CK-MB (CK-2) 1.0 ng/mL (0-6.6) 08/20/19 23:06 Troponin I 0.134 ng/mL (< 0.028) H 08/20/19 23:06 - Telemetry Sinus rhythms and dysrhythmias: sinus rhythm - Assessment/Plan Assessment/Plan: 1. Unstable angina. 2. CAD 3 .Paroxysmal afib PLAN: - Plan for [facility] tomorrow afternoon. - Risks and benefits explained. Agrees to proceed. Right groin access. POOJA if IRS, BMS if de evelyn lesion.
[2019-08-21] MEDS: Atorvastatin Calcium 40 MG TAB PO SCH (20:30)
[2019-08-21] MEDS: ALPRAZolam 1 MG TAB PO PRN (20:39)
[2019-08-21] MEDS: Lidocaine Patch Removal 1 EACH TOP SCH (20:41)
[2019-08-21] MEDS ORDERED: Famotidine 20 MG TAB PO SCH (22:00)
[2019-08-22] MEDS ORDERED: Sodium Chloride 0.9% 500 ML IV SCH ×2 (00:01→16:00)
[2019-08-22] MEDS: HYDROcodone/Acetaminophen 5/325 mg Tablet PO PRN (01:00)
[2019-08-22] MEDS: Famotidine 20 MG TAB PO SCH ×2 (06:32→21:51)
[2019-08-22] MEDS: Pregabalin 50 MG CAP PO SCH ×2 (06:32→21:52)
[2019-08-22] MEDS: Clopidogrel Bisulfate 75 MG TAB PO SCH (06:32)
[2019-08-22] MEDS: Escitalopram Oxalate 20 mg Tablet PO SCH (06:34)
[2019-08-22] MEDS: Carvedilol 6.25 MG TAB PO SCH ×2 (06:37→21:50)
[2019-08-22] MEDS: Levothyroxine Sodium 50 MCG TAB PO SCH (06:37)
[2019-08-22] MEDS: Lidocaine 5% Patch TD SCH (06:38)
[2019-08-22] MEDS: Multivit, Therapeutic 1 TAB PO SCH (06:38)
[2019-08-22] MEDS ORDERED: Heparin (Artline) 1,000 ML ONE (13:30)
[2019-08-22] MEDS ORDERED: Lidocaine 1% (PF) 30 ML VIAL ONE (13:30)
[2019-08-22] MEDS ORDERED: Midazolam HCl 2 mg/2 ml Vial ONE (13:59)
[2019-08-22] MEDS ORDERED: Fentanyl 100 MCG/2 ML VIAL ONE (13:59)
[2019-08-22] MEDS ORDERED: Nitroglycerin 100MG/250ML BOT 250 ML ONE (14:44)
[2019-08-22] MEDS ORDERED: Heparin 10,000 UNITS/1 ML VIAL ONE (14:44)
[2019-08-22] MEDS ORDERED: Heparin (Artline) 500 ML ONE (14:54)
[2019-08-22] MEDS ORDERED: Clopidogrel Bisulfate 300 MG TAB ONE (15:09)
[2019-08-22] MEDS: HumaLOG 300 UNITS/3 ML VIAL SC PRN ×2 (18:13→21:49)
--- NOTE | 2019-08-22 18:32 | PDOC.HOSPP ---
- Subjective Encounter Date: 08/22/19 Encounter Time: 08:00 Subjective: Pt seen for followup re: NSTEMI. No complaints today. - Objective Vital Signs & Weight: Vital Signs (12 hours) Temp Pulse Resp BP BP BP Pulse Ox 08/22/19 17:29 97.6 F 95 18 125/62 100 08/22/19 12:00 98.2 F 93 16 123/59 L 92 L 08/22/19 07:33 98.4 F 100 16 130/61 94 L 08/22/19 06:37 139/72 Weight Weight 211 lb 8 oz I&O: 08/21/19 08/22/19 08/23/19 06:59 06:59 06:59 Intake Total 300 720 225 Output Total 500 0 Balance -200 720 225 Result Diagrams: 08/21/19 08:42 08/21/19 08:42 Additional Labs: Accuchecks 08/22/19 08/22/19 08/22/19 18:01 11:08 06:37 POC Glucose 328 H 344 H 325 H 08/21/19 20:44 POC Glucose 289 H Labs and MARs reviewed by me EKG Reviewed by me: Yes (Tele: [employer]) Hospitalist ROS - Review of Systems Cardiovascular: denies: chest pain, palpitations, orthopnea, paroxysmal noc. dyspnea, edema, light headedness Skin: denies: rash, lesions, chiquis, bruising - Medication Medications: Active Medications Generic Name Dose Route Start Last Admin Trade Name Freq PRN Reason Stop Dose Admin Acetaminophen 650 mg 08/20/19 01:50 08/21/19 18:06 Tylenol PO 650 mg Q4H PRN Administration Headache/Fever/Mild Pain (1-3) Hydrocodone Bitart/Acetaminophen 1 tab 08/22/19 00:35 08/22/19 01:00 Center 5/325 PO 1 tab Q4H PRN Administration Moderate Pain (4-6) Alprazolam 1 mg 08/20/19 02:16 08/21/19 20:39 Xanax PO 1 mg TID PRN Administration Anxiety Atorvastatin Calcium 40 mg 08/20/19 21:00 08/21/19 20:30 Lipitor PO 40 mg HS CECILIA Administration Carvedilol 12.5 mg 08/20/19 09:00 08/22/19 06:37 Coreg PO 12.5 mg BID CECILIA Administration Clopidogrel Bisulfate 75 mg 08/20/19 09:00 08/22/19 06:32 Plavix PO 75 mg DAILY CECILIA Administration Escitalopram Oxalate 20 mg 08/20/19 09:00 08/22/19 06:34 Lexapro PO 20 mg DAILY CECILIA Administration Famotidine 20 mg 08/22/19 09:00 08/22/19 06:32 Pepcid PO 20 mg BID CECILIA Administration Sodium Chloride 500 mls @ 75 mls/hr 08/22/19 16:00 08/22/19 17:30 Normal Saline 0.9% IV 08/22/19 22:39 500 mls .Q6H40M CECILIA Administration Insulin Human Lispro 0 units 08/21/19 13:54 08/22/19 18:13 Humalog SC 8 unit .MODERATE SLIDING SC PRN Administration Moderate Correctional Scale Insulin Human Lispro 0 units 08/21/19 21:43 08/21/19 22:42 Humalog SC 3 unit .BEDTIME SLIDING SC PRN Administration Bedtime Correctional Scale Levothyroxine Sodium 50 mcg 08/20/19 06:00 08/22/19 06:37 Synthroid PO 50 mcg 0600 CECILIA Administration Lidocaine 1 patch 08/21/19 09:00 08/22/19 06:38 Lidoderm 5% Patch TD 1 patch DAILY CECILIA Administration Miscellaneous Medication 1 each 08/21/19 21:00 08/21/19 20:41 Lidocaine Patch Removal TOP 1 each 2100 CECILIA Administration Multivitamins 1 tab 08/20/19 09:00 08/22/19 06:38 Theragran PO 1 tab DAILY CECILIA Administration Nitroglycerin 0.4 mg 08/20/19 02:17 08/20/19 19:45 Nitrostat SL 1 tab Q5MIN PRN Administration Chest Pain Ondansetron HCl 4 mg 08/20/19 01:50 08/21/19 04:50 Zofran Odt PO 4 mg Q6H PRN Administration Nausea/Vomiting Pregabalin 100 mg 08/20/19 09:00 08/22/19 06:32 Lyrica PO 100 mg BID CECILIA Administration Tizanidine HCl 4 mg 08/20/19 02:16 08/20/19 19:52 Zanaflex PO 4 mg DAILY PRN Administration Allergies - Exam General - other findings: Obese ENT: normocephalic atraumatic, moist mucosa Neck: no thyromegaly, no lymphadenopathy Heart: no gallops, irregular Respiratory: CTAB Gastrointestinal: soft, normal bowel sounds Psychiatric: normal affect, normal behavior Hosp A/P (1) NSTEMI (non-ST elevated myocardial infarction) Code(s): I21.4 - NON-ST ELEVATION (NSTEMI) MYOCARDIAL INFARCTION Status: Acute (2) Afib Code(s): I48.91 - UNSPECIFIED ATRIAL FIBRILLATION Status: Chronic (3) COPD (chronic obstructive pulmonary disease) Status: Chronic Qualifiers: COPD type: chronic bronchitis (4) DM type 2 (diabetes mellitus, type 2) Status: Chronic Qualifiers: Diabetes mellitus retirement insulin use: with intermodal dispatcher use Diabetes mellitus complication status: with kidney complications Diabetes mellitus complication detail: with chronic kidney disease Chronic kidney disease stage : stage 3 (moderate) Qualified Code(s): E11.22 - Type 2 diabetes mellitus with diabetic chronic kidney disease; N18.3 - Chronic kidney disease, stage 3 ( moderate); Z79.4 - long term (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 of insulin (5) Dyslipidemia Code(s): E78.5 - HYPERLIPIDEMIA, UNSPECIFIED Status: Chronic (6) HTN (hypertension) Code(s): I10 - ESSENTIAL (PRIMARY) HYPERTENSION Status: Chronic Qualifiers: Hypertension type: essential hypertension Qualified Code(s): I10 - Essential (primary) hypertension (7) Chronic kidney disease, stage 3 Code(s): N18.3 - CHRONIC KIDNEY DISEASE, STAGE 3 (MODERATE) Status: Chronic (8) Depression Code(s): F32.9 - MAJOR DEPRESSIVE DISORDER, SINGLE EPISODE, UNSPECIFIED Status : Chronic - Plan Cath today. CKD stable. Depression mild, stable, continue Celexa. Moderate insulin sliding scale, 1800 aries diet Monitor vital signs and titrate antihypertensives as needed. Yuli on hold for cath
[2019-08-22] MEDS: Atorvastatin Calcium 40 MG TAB PO SCH (21:52)
[2019-08-22] MEDS: Lidocaine Patch Removal 1 EACH TOP SCH (22:07)
[2019-08-22] MEDS: ALPRAZolam 1 MG TAB PO PRN (22:54)
[2019-08-23 04:35] LABS: ALT (SGPT) 14 U/L (8-55); AST (SGOT) 48 U/L (5-34); Albumin 3.1 g/dL (3.4-4.8); Alkaline Phosphatase 103 U/L (40-110); Anion Gap 14 mmol/L (10-20); BUN (Urea Nitrogen) 50 mg/dL (9.8-20.1); Bilirubin, Total 0.5 mg/dL (0.2-1.2); Calc. Creatinine Clearance 47 mL/min (70-130); Calcium 8.7 mg/dL (7.8-10.44); Carbon Dioxide 21 mmol/L (23-31); Chloride 107 mmol/L (98-107); Estimated GFR-MDRD 27; Globulin 2.6 g/dL (2.4-3.5); Glucose 330 mg/dL (80-115); Potassium 4.5 mmol/L (3.5-5.1); Protein, Total 5.7 g/dL (6.0-8.3); Sodium 137 mmol/L (136-145)
[2019-08-23 04:49] LABS: #Eosinphils 0.1 thou/uL (0.0-0.7); #Lymphocytes 1.8 thou/uL (1.20-3.40); #Monocytes 0.6 thou/uL (0.11-0.59); #Neutrophils 4.7 thou/uL (1.40-6.50); %Basophils 0.4 % (0.0-1.0); %Eosinophils 0.9 % (0.0-10.0); %Lymphocytes 25.1 % (21.0-51.0); %Monocytes 7.9 % (0.0-10.0); %Neutrophils 65.7 % (42.0-75.0); Hemoglobin 9.4 g/dL (12.0-16.0); Mean Corpuscular HGB CONC 33.9 g/dL (32.0-36.0); Mean Corpuscular Hemoglobin 29.6 pg (27.0-31.0); Mean Corpuscular Volume 87.4 fL (78.0-98.0); Mean Platelet Volume 9.7 fL (7.4-10.4); Platelet Count 170 thou/uL (130-400); RBC Distribution Width 12.9 % (11.5-14.5); Red Blood Cell (RBC) Count 3.19 mill/uL (4.20-5.40); White Blood Cell (WBC) Count 7.1 thou/uL (4.8-10.8)
[2019-08-23] MEDS: Levothyroxine Sodium 50 MCG TAB PO SCH (06:42)
[2019-08-23] MEDS: Multivit, Therapeutic 1 TAB PO SCH (09:42)
[2019-08-23] MEDS: Pregabalin 50 MG CAP PO SCH ×2 (09:42→20:20)
[2019-08-23] MEDS: Escitalopram Oxalate 20 mg Tablet PO SCH (09:43)
[2019-08-23] MEDS: Famotidine 20 MG TAB PO SCH ×2 (09:43→20:20)
[2019-08-23] MEDS: Clopidogrel Bisulfate 75 MG TAB PO SCH (09:43)
[2019-08-23] MEDS: Carvedilol 6.25 MG TAB PO SCH ×2 (09:43→20:22)
[2019-08-23] MEDS: Lidocaine 5% Patch TD SCH (09:44)
[2019-08-23] MEDS: HumaLOG 300 UNITS/3 ML VIAL SC PRN ×4 (09:46→23:13)
--- NOTE | 2019-08-23 12:41 | PDOC.HOSPP ---
- Subjective Encounter Date: 08/23/19 Encounter Time: 09:00 Subjective: no chest pain or sob feels better has not ambulated much after cath. - Objective Vital Signs & Weight: Vital Signs (12 hours) Temp Pulse Pulse Pulse Resp BP BP 08/23/19 11:40 98.1 F 94 19 08/23/19 10:28 92 96 118/67 115/56 L 08/23/19 07:26 99.4 F 94 11 L 08/23/19 03:06 98.6 F 97 16 BP Pulse Ox Pulse Ox Pulse Ox 08/23/19 11:40 109/53 L 96 08/23/19 10:28 97 97 08/23/19 07:26 131/67 94 L 08/23/19 03:06 130/61 94 L Weight Weight 211 lb 8 oz I&O: 08/22/19 08/23/19 08/24/19 06:59 06:59 06:59 Intake Total 720 1705 Output Total 500 Balance 720 1205 Result Diagrams: 08/23/19 04:03 08/23/19 04:03 Additional Labs: Accuchecks 08/23/19 08/23/19 08/22/19 11:32 05:26 20:25 POC Glucose 346 H 362 H 302 H 08/22/19 08/22/19 18:01 11:08 POC Glucose 328 H 344 H Hospitalist ROS - Medication Medications: Active Medications Generic Name Dose Route Start Last Admin Trade Name Freq PRN Reason Stop Dose Admin Acetaminophen 650 mg 08/20/19 01:50 08/21/19 18:06 Tylenol PO 650 mg Q4H PRN Administration Headache/Fever/Mild Pain (1-3) Hydrocodone Bitart/Acetaminophen 1 tab 08/22/19 00:35 08/22/19 01:00 Caroleen 5/325 PO 1 tab Q4H PRN Administration Moderate Pain (4-6) Alprazolam 1 mg 08/20/19 02:16 08/22/19 22:54 Xanax PO 1 mg TID PRN Administration Anxiety Atorvastatin Calcium 40 mg 08/20/19 21:00 08/22/19 21:52 Lipitor PO 40 mg HS CECILIA Administration Carvedilol 12.5 mg 08/20/19 09:00 08/23/19 09:43 Coreg PO 12.5 mg BID CECILIA Administration Clopidogrel Bisulfate 75 mg 08/20/19 09:00 08/23/19 09:43 Plavix PO 75 mg DAILY CECILIA Administration Escitalopram Oxalate 20 mg 08/20/19 09:00 08/23/19 09:43 Lexapro PO 20 mg DAILY CECILIA Administration Famotidine 20 mg 08/22/19 09:00 08/23/19 09:43 Pepcid PO 20 mg BID CECILIA Administration Insulin Human Lispro 0 units 08/21/19 13:54 08/23/19 11:46 Humalog SC 8 unit .MODERATE SLIDING SC PRN Administration Moderate Correctional Scale Insulin Human Lispro 0 units 08/21/19 21:43 08/22/19 21:49 Humalog SC 4 unit .BEDTIME SLIDING SC PRN Administration Bedtime Correctional Scale Levothyroxine Sodium 50 mcg 08/20/19 06:00 08/23/19 06:42 Synthroid PO 50 mcg 0600 CECILIA Administration Lidocaine 1 patch 08/21/19 09:00 08/23/19 09:44 Lidoderm 5% Patch TD 1 patch DAILY CECILIA Administration Miscellaneous Medication 1 each 08/21/19 21:00 08/22/19 22:07 Lidocaine Patch Removal TOP 1 each 2100 CECILIA Administration Multivitamins 1 tab 08/20/19 09:00 08/23/19 09:42 Theragran PO 1 tab DAILY CECILIA Administration Nitroglycerin 0.4 mg 08/20/19 02:17 08/20/19 19:45 Nitrostat SL 1 tab Q5MIN PRN Administration Chest Pain Ondansetron HCl 4 mg 08/20/19 01:50 08/21/19 04:50 Zofran Odt PO 4 mg Q6H PRN Administration Nausea/Vomiting Pregabalin 100 mg 08/20/19 09:00 08/23/19 09:42 Lyrica PO 100 mg BID CECILIA Administration Tizanidine HCl 4 mg 08/20/19 02:16 08/20/19 19:52 Zanaflex PO 4 mg DAILY PRN Administration Allergies - Exam General Appearance: awake alert Eye: PERRL, anicteric sclera ENT: no oropharyngeal lesions, dry oral mucosa Neck: supple, no JVD Heart: RRR, no murmur Respiratory: no wheezes, no rales Gastrointestinal: soft, non-tender, non-distended, normal bowel sounds Extremities: no cyanosis, no edema Neurological: cranial nerve grossly intact, no focal deficits Psychiatric: A&O x 3 Hosp A/P (1) Unstable angina Status: Acute (2) CAD (coronary artery disease) Code(s): I25.10 - ATHSCL HEART DISEASE OF [place] CORONARY ARTERY W/O ANG PCTRS Status: Chronic Qualifiers: Coronary Disease-Associated Artery/Lesion type: [place] artery [place] vs. transplanted heart: [place] heart Associated angina: with stable angina Qualified Code(s): I25.118 - Atherosclerotic heart disease of [place] coronary artery with other forms of angina pectoris (3) Acute worsening of stage 3 chronic kidney disease Code(s): N18.3 - CHRONIC KIDNEY DISEASE, STAGE 3 (MODERATE) Status: Acute (4) Depression Code(s): F32.9 - MAJOR DEPRESSIVE DISORDER, SINGLE EPISODE, UNSPECIFIED Status : Chronic Qualifiers: Depression Type: major depressive disorder (5) Paroxysmal atrial fibrillation Code(s): I48.0 - PAROXYSMAL ATRIAL FIBRILLATION Status: Chronic (6) Anemia, normocytic normochromic Code(s): D64.9 - ANEMIA, UNSPECIFIED Status: Chronic (7) COPD (chronic obstructive pulmonary disease) Status: Chronic Qualifiers: COPD type: chronic bronchitis (8) Chronic kidney disease, stage 3 Code(s): N18.3 - CHRONIC KIDNEY DISEASE, STAGE 3 (MODERATE) Status: Chronic (9) Chronic stage c diastolic heart failure Code(s): I50.32 - CHRONIC DIASTOLIC (CONGESTIVE) HEART FAILURE Status: Chronic (10) DM type 2 (diabetes mellitus, type 2) Status: Chronic Qualifiers: Diabetes mellitus longterm insulin use: with live out nanny use Diabetes mellitus complication status: with kidney complications Diabetes mellitus complication detail: with chronic kidney disease Chronic kidney disease stage : stage 3 (moderate) Qualified Code(s): E11.22 - Type 2 diabetes mellitus with diabetic chronic kidney disease; N18.3 - Chronic kidney disease, stage 3 ( moderate); Z79.4 - correction (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 of insulin (11) Dyslipidemia Code(s): E78.5 - HYPERLIPIDEMIA, UNSPECIFIED Status: Chronic (12) HTN (hypertension) Code(s): I10 - ESSENTIAL (PRIMARY) HYPERTENSION Status: Chronic Qualifiers: Hypertension type: essential hypertension Qualified Code(s): I10 - Essential (primary) hypertension (13) Obesity (BMI 30.0-34.9) Code(s): E66.9 - OBESITY, UNSPECIFIED Status: Chronic - Plan s/p stent to likely LAD and RCA, await full cath report. is on asp, plavix, lipitor, coreg, synthorid. bmp in am hemostable echo showed a ef of 45% with apical/anteroseptal hypokinesis, also had rvsp of 52 cpap/outpt sleep study likely dc plan in am if ok with cardiology and her renal panel remains stable, current bun/cr is 50/1.9. To ambulate in hallway as tolerated
--- NOTE | 2019-08-23 17:02 | PDOC.CPN ---
- Subjective Date: 08/23/19 Time: 15:00 Interval history: She had her LHC yesterday and she had severe in stent restenosis on both her LAD and RCA BMS.We placed POOJA on top of previous BMS. She was hydrated post procedure but today she feels more SOB, no chest pain, increased swelling. - Review of Systems General: denies: fever/chills, weight/appetite/sleep changes, night sweats, fatigue Respiratory: reports: shortness of breath. denies: cough, congestion, exercise intolerance Cardiovascular: reports: edema. denies: chest pain, palpitation, paroxysmal nocturnal dyspnea, orthopnea Gastrointestinal: denies: nausea, vomiting, diarrhea, constipation, abd pain, GI bleeding Musculoskeletal: denies: pain, tenderness, stiffness, swelling, arthritis/ arthralgias Neurological: denies: numbness, syncope, seizure, weakness - Objective Allergies/Adverse Reactions: Allergies Allergy/AdvReac Type Severity Reaction Status Date / Time latex Allergy Verified 01/24/19 22:40 meperidine [From Demerol] Allergy Verified 01/24/19 22:40 morphine Allergy Verified 01/24/19 22:40 aspirin AdvReac Verified 04/27/19 01:49 Visit Medications: Current Medications Acetaminophen (Tylenol) 650 mg PO Q4H PRN PRN Reason: Headache/Fever/Mild Pain (1-3) Last Admin: 08/21/19 18:06 Dose: 650 mg Hydrocodone Bitart/Acetaminophen ([place] 5/325) 1 tab PO Q4H PRN PRN Reason: Moderate Pain (4-6) Last Admin: 08/22/19 01:00 Dose: 1 tab Alprazolam (Xanax) 1 mg PO TID PRN PRN Reason: Anxiety Last Admin: 08/22/19 22:54 Dose: 1 mg Atorvastatin Calcium (Lipitor) 40 mg PO HS [facility] Last Admin: 08/22/19 21:52 Dose: 40 mg Carvedilol (Coreg) 12.5 mg PO BID [facility] Last Admin: 08/23/19 09:43 Dose: 12.5 mg Clopidogrel Bisulfate (Plavix) 75 mg PO DAILY [facility] Last Admin: 08/23/19 09:43 Dose: 75 mg Dextrose/Water (Dextrose 50%) 25 gm SLOW IVP PRN PRN PRN Reason: Hypoglycemia Escitalopram Oxalate (Lexapro) 20 mg PO DAILY [facility] Last Admin: 08/23/19 09:43 Dose: 20 mg Famotidine (Pepcid) 20 mg PO BID [facility] Last Admin: 08/23/19 09:43 Dose: 20 mg Fluticasone Propionate (Flonase Nasal [place]) 0 gm NASAL DAILYPRN PRN PRN Reason: nasal stuffiness Glucagon (Glucagon) 1 mg IM PRN PRN PRN Reason: Hypoglycemia Dextrose/Water (D5w) 1,000 mls @ 0 mls/hr IV .Q0M PRN PRN Reason: Hypoglycemia Insulin Human Lispro (Humalog) 0 units SC .MODERATE SLIDING SC PRN PRN Reason: Moderate Correctional Scale Last Admin: 08/23/19 11:46 Dose: 8 unit Insulin Human Lispro (Humalog) 0 units SC .BEDTIME SLIDING SC PRN PRN Reason: Bedtime Correctional Scale Last Admin: 08/22/19 21:49 Dose: 4 unit Levothyroxine Sodium (Synthroid) 50 mcg PO 0600 [facility] Last Admin: 08/23/19 06:42 Dose: 50 mcg Lidocaine (Lidoderm 5% Patch) 1 patch TD DAILY [facility] Last Admin: 08/23/19 09:44 Dose: 1 patch Miscellaneous Medication (Lidocaine Patch Removal) 1 each TOP 2100 [facility] Last Admin: 08/22/19 22:07 Dose: 1 each Multivitamins (Theragran) 1 tab PO DAILY [facility] Last Admin: 08/23/19 09:42 Dose: 1 tab Nitroglycerin (Nitrostat) 0.4 mg SL Q5MIN PRN PRN Reason: Chest Pain Last Admin: 08/20/19 19:45 Dose: 1 tab Ondansetron HCl (Zofran Odt) 4 mg PO Q6H PRN PRN Reason: Nausea/Vomiting Last Admin: 08/21/19 04:50 Dose: 4 mg Pregabalin (Lyrica) 100 mg PO BID [facility] Last Admin: 08/23/19 09:42 Dose: 100 mg Tizanidine HCl (Zanaflex) 4 mg PO DAILY PRN PRN Reason: Allergies Last Admin: 08/20/19 19:52 Dose: 4 mg Vital Signs & Weight: Vital Signs Temp Pulse Pulse Pulse Resp BP BP 08/23/19 11:40 98.1 F 94 19 08/23/19 10:28 92 96 118/67 115/56 L 08/23/19 07:26 99.4 F 94 11 L BP Pulse Ox Pulse Ox Pulse Ox 08/23/19 11:40 109/53 L 96 08/23/19 10:28 97 97 08/23/19 07:26 131/67 94 L Weight 211 lb 8 oz - Physical Exam General: alert & oriented x3 HEENT: mucus membranes moist Neck: supple neck Cardiac: regular rate and rhythm Lungs: normal breath sounds Neuro: grossly intact Abdomen: active bowel sounds Extremities: 1+ LE edema Skin: clear Musculoskeletal: no pain - Labs Result Diagrams: 08/23/19 04:03 08/23/19 04:03 Troponin/CKMB CK-MB (CK-2) 1.0 ng/mL (0-6.6) 08/20/19 23:06 Troponin I 0.134 ng/mL (< 0.028) H 08/20/19 23:06 - Telemetry Sinus rhythms and dysrhythmias: sinus rhythm - Assessment/Plan Assessment/Plan: 1. Unstable angina. 2. CAD 3. Paroxysmal afib PLAN: - S/P POOJA of LAD and RCA on top of old BMS. - Mild fluid overload today. - Mild increase in creatinine could be related to fluid overload or contrast nephropathy. - Will give one dose of IV lasix today. - Continue to monitor on telemetry.
[2019-08-23] MEDS ORDERED: Furosemide 40 MG/4 ML VIAL SLOW IVP SCH (17:15)
[2019-08-23] MEDS: Acetaminophen 325 MG TAB PO PRN (17:52)
[2019-08-23] MEDS: Atorvastatin Calcium 40 MG TAB PO SCH (20:20)
[2019-08-23] MEDS: ALPRAZolam 1 MG TAB PO PRN (20:22)
[2019-08-23] MEDS: Lidocaine Patch Removal 1 EACH TOP SCH (20:23)
[2019-08-24 04:24] LABS: #Eosinphils 0.2 thou/uL (0.0-0.7); #Lymphocytes 1.8 thou/uL (1.20-3.40); #Monocytes 0.5 thou/uL (0.11-0.59); #Neutrophils 4.4 thou/uL (1.40-6.50); %Basophils 0.7 % (0.0-1.0); %Eosinophils 3.1 % (0.0-10.0); %Lymphocytes 25.7 % (21.0-51.0); %Monocytes 7.5 % (0.0-10.0); %Neutrophils 63.1 % (42.0-75.0); Hemoglobin 8.9 g/dL (12.0-16.0); Mean Corpuscular HGB CONC 33.9 g/dL (32.0-36.0); Mean Corpuscular Hemoglobin 30.2 pg (27.0-31.0); Mean Corpuscular Volume 88.9 fL (78.0-98.0); Mean Platelet Volume 9.5 fL (7.4-10.4); Platelet Count 170 thou/uL (130-400); Red Blood Cell (RBC) Count 2.94 mill/uL (4.20-5.40); White Blood Cell (WBC) Count 6.9 thou/uL (4.8-10.8)
[2019-08-24 04:46] LABS: Albumin 3.2 g/dL (3.4-4.8); Anion Gap 14 mmol/L (10-20); BUN (Urea Nitrogen) 61 mg/dL (9.8-20.1); BUN/Creatinine Ratio 22.43; Calc. Creatinine Clearance 33 mL/min (70-130); Calcium 8.9 mg/dL (7.8-10.44); Carbon Dioxide 22 mmol/L (23-31); Chloride 106 mmol/L (98-107); Estimated GFR-MDRD 18; Glucose 291 mg/dL (80-115); Phosphorus 4.1 mg/dL (2.3-4.7); Potassium 4.8 mmol/L (3.5-5.1); Sodium 137 mmol/L (136-145)
[2019-08-24] MEDS: Levothyroxine Sodium 50 MCG TAB PO SCH (06:01)
[2019-08-24] MEDS: Carvedilol 6.25 MG TAB PO SCH ×2 (08:31→20:16)
[2019-08-24] MEDS: Famotidine 20 MG TAB PO SCH ×2 (08:31→20:16)
[2019-08-24] MEDS: Pregabalin 50 MG CAP PO SCH ×2 (08:32→20:39)
[2019-08-24] MEDS: Clopidogrel Bisulfate 75 MG TAB PO SCH (08:32)
[2019-08-24] MEDS: Multivit, Therapeutic 1 TAB PO SCH (08:33)
[2019-08-24] MEDS: Escitalopram Oxalate 20 mg Tablet PO SCH (08:34)
[2019-08-24] MEDS: Lidocaine 5% Patch TD SCH (08:34)
[2019-08-24] MEDS: HumaLOG 300 UNITS/3 ML VIAL SC PRN ×4 (08:36→20:28)
[2019-08-24] MEDS ORDERED: Sodium Chloride 0.9% 10 ML ONE ×3 (08:42→14:20)
[2019-08-24] MEDS: ALPRAZolam 1 MG TAB PO PRN (08:44)
[2019-08-24] MEDS: Albumin 25% 25 GM/100 ML BOT IVPB SCH ×3 (08:59→20:11)
--- NOTE | 2019-08-24 11:39 | PDOC.HOSPP ---
- Subjective Encounter Date: 08/24/19 Encounter Time: 09:00 Subjective: has sob, no cough or palpitations at bedside - Objective Vital Signs & Weight: Vital Signs (12 hours) BP 08/24/19 08:31 119/85 Weight Weight 219 lb 3.2 oz I&O: 08/23/19 08/24/19 08/25/19 06:59 06:59 06:59 Intake Total 1705 2840 Output Total 500 Balance 1205 2840 Result Diagrams: 08/24/19 03:56 08/24/19 03:56 Additional Labs: Accuchecks 08/24/19 08/24/19 08/23/19 10:19 03:41 20:47 POC Glucose 350 H 298 H 239 H 08/23/19 17:41 POC Glucose 273 H Hospitalist ROS - Medication Medications: Active Medications Generic Name Dose Route Start Last Admin Trade Name Freq PRN Reason Stop Dose Admin Acetaminophen 650 mg 08/20/19 01:50 08/23/19 17:52 Tylenol PO 650 mg Q4H PRN Administration Headache/Fever/Mild Pain (1-3) Hydrocodone Bitart/Acetaminophen 1 tab 08/22/19 00:35 08/22/19 01:00 [place] 5/325 PO 1 tab Q4H PRN Administration Moderate Pain (4-6) Albumin Human 25 gm 08/24/19 08:30 08/24/19 08:59 Albumin 25% IVPB 08/25/19 14:31 25 gm Q6H CECILIA Administration Albuterol/Ipratropium 3 ml 08/23/19 18:36 08/23/19 18:56 Duoneb NEB 3 ml Q6H PRN Administration .SOB Alprazolam 1 mg 08/20/19 02:16 08/24/19 08:44 Xanax PO 1 mg TID PRN Administration Anxiety Atorvastatin Calcium 40 mg 08/20/19 21:00 08/23/19 20:20 Lipitor PO 40 mg HS CECILIA Administration Carvedilol 12.5 mg 08/20/19 09:00 08/24/19 08:31 Coreg PO 12.5 mg BID CECILIA Administration Clopidogrel Bisulfate 75 mg 08/20/19 09:00 08/24/19 08:32 Plavix PO 75 mg DAILY CECILIA Administration Escitalopram Oxalate 20 mg 08/20/19 09:00 08/24/19 08:34 Lexapro PO 20 mg DAILY CECILIA Administration Famotidine 20 mg 08/22/19 09:00 08/24/19 08:31 Pepcid PO 20 mg BID CECILIA Administration Insulin Human Lispro 0 units 08/21/19 13:54 08/24/19 08:36 Humalog SC 6 unit .MODERATE SLIDING SC PRN Administration Moderate Correctional Scale Insulin Human Lispro 0 units 08/21/19 21:43 08/23/19 23:13 Humalog SC 2 unit .BEDTIME SLIDING SC PRN Administration Bedtime Correctional Scale Levothyroxine Sodium 50 mcg 08/20/19 06:00 08/24/19 06:01 Synthroid PO 50 mcg 0600 CECILIA Administration Lidocaine 1 patch 08/21/19 09:00 08/24/19 08:34 Lidoderm 5% Patch TD 1 patch DAILY CECILIA Administration Miscellaneous Medication 1 each 08/21/19 21:00 08/23/19 20:23 Lidocaine Patch Removal TOP 1 each 2100 CECILAI Administration Multivitamins 1 tab 08/20/19 09:00 08/24/19 08:33 Theragran PO 1 tab DAILY CECILIA Administration Nitroglycerin 0.4 mg 08/20/19 02:17 08/20/19 19:45 Nitrostat SL 1 tab Q5MIN PRN Administration Chest Pain Ondansetron HCl 4 mg 08/20/19 01:50 08/21/19 04:50 Zofran Odt PO 4 mg Q6H PRN Administration Nausea/Vomiting Pregabalin 100 mg 08/20/19 09:00 08/24/19 08:32 Lyrica PO 100 mg BID CECILIA Administration Tizanidine HCl 4 mg 08/20/19 02:16 08/20/19 19:52 Zanaflex PO 4 mg DAILY PRN Administration Allergies - Exam General Appearance: awake alert, ill appearing Eye: PERRL, anicteric sclera ENT: no oropharyngeal lesions, moist mucosa Neck: supple, no JVD Heart: no murmur, no gallops, irregular Respiratory: no wheezes, no rales, rhonchi Gastrointestinal: soft, non-tender, non-distended, normal bowel sounds Extremities: no cyanosis, no edema Neurological: cranial nerve grossly intact, no focal deficits Psychiatric: normal affect, A&O x 3 Hosp A/P (1) Unstable angina Status: Acute (2) CAD (coronary artery disease) Code(s): I25.10 - ATHSCL HEART DISEASE OF [place] CORONARY ARTERY W/O ANG PCTRS Status: Chronic Qualifiers: Coronary Disease-Associated Artery/Lesion type: [place] artery [place] vs. transplanted heart: [place] heart Associated angina: with stable angina Qualified Code(s): I25.118 - Atherosclerotic heart disease of [place] coronary artery with other forms of angina pectoris (3) Acute worsening of stage 3 chronic kidney disease Code(s): N18.3 - CHRONIC KIDNEY DISEASE, STAGE 3 (MODERATE) Status: Acute (4) Depression Code(s): F32.9 - MAJOR DEPRESSIVE DISORDER, SINGLE EPISODE, UNSPECIFIED Status : Chronic Qualifiers: Depression Type: major depressive disorder (5) Paroxysmal atrial fibrillation Code(s): I48.0 - PAROXYSMAL ATRIAL FIBRILLATION Status: Chronic (6) Anemia, normocytic normochromic Code(s): D64.9 - ANEMIA, UNSPECIFIED Status: Chronic (7) COPD (chronic obstructive pulmonary disease) Status: Chronic Qualifiers: COPD type: COPD with acute exacerbation Qualified Code(s): J44.1 - Chronic obstructive pulmonary disease with (acute) exacerbation (8) Chronic kidney disease, stage 3 Code(s): N18.3 - CHRONIC KIDNEY DISEASE, STAGE 3 (MODERATE) Status: Chronic (9) Chronic stage c diastolic heart failure Code(s): I50.32 - CHRONIC DIASTOLIC (CONGESTIVE) HEART FAILURE Status: Chronic (10) DM type 2 (diabetes mellitus, type 2) Status: Chronic Qualifiers: Diabetes mellitus long term care social worker insulin use: with long term care social worker use Diabetes mellitus complication status: with kidney complications Diabetes mellitus complication detail: with chronic kidney disease Chronic kidney disease stage : stage 3 (moderate) Qualified Code(s): E11.22 - Type 2 diabetes mellitus with diabetic chronic kidney disease; N18.3 - Chronic kidney disease, stage 3 ( moderate); Z79.4 - retirement (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 of insulin (11) Dyslipidemia Code(s): E78.5 - HYPERLIPIDEMIA, UNSPECIFIED Status: Chronic (12) HTN (hypertension) Code(s): I10 - ESSENTIAL (PRIMARY) HYPERTENSION Status: Chronic Qualifiers: Hypertension type: essential hypertension Qualified Code(s): I10 - Essential (primary) hypertension (13) Obesity (BMI 30.0-34.9) Code(s): E66.9 - OBESITY, UNSPECIFIED Status: Chronic - Plan s/p stent to LAD and RCA. is on asp, plavix, lipitor, coreg, synthorid. still sob, will add steroids, duonebs q6h, i.spirometry. Counselled her to ambulate more. hemostable echo showed a ef of 45% with apical/anteroseptal hypokinesis, also had rvsp of 52 cpap/outpt sleep study as expected her renal function got worse, albumin infusions, d/w To ambulate in hallway as tolerated
--- NOTE | 2019-08-24 12:21 | RAD ---
EXAM: Single view of the chest HISTORY: Shortness of breath COMPARISON: 08/19/2019 FINDINGS: Single view of the chest shows an enlarged but stable cardiomediastinal silhouette. There i s no evidence of consolidation, mass, or pleural effusion. The bones are unremarkable. IMPRESSION: Cardiomegaly without evidence of acute cardiopulmonary disease
[2019-08-24] MEDS: methylPREDNISolone Sod Succ 40 MG VIAL IVP SCH ×2 (14:46→20:17)
--- NOTE | 2019-08-24 17:33 | PDOC.CPN ---
- Subjective Date: 08/24/19 Time: 17:32 Interval history: She is feeling tired. SOB has improved. No more chest pains. - Review of Systems General: denies: fever/chills, weight/appetite/sleep changes, night sweats, fatigue Respiratory: reports: exercise intolerance. denies: cough, congestion, shortness of breath Cardiovascular: denies: chest pain, palpitation, edema, paroxysmal nocturnal dyspnea, orthopnea Gastrointestinal: denies: nausea, vomiting, diarrhea, constipation, abd pain, GI bleeding Musculoskeletal: denies: pain, tenderness, stiffness, swelling, arthritis/ arthralgias Neurological: denies: numbness, syncope, seizure, weakness - Objective Allergies/Adverse Reactions: Allergies Allergy/AdvReac Type Severity Reaction Status Date / Time latex Allergy Verified 01/24/19 22:40 meperidine [From Demerol] Allergy Verified 01/24/19 22:40 morphine Allergy Verified 01/24/19 22:40 aspirin AdvReac Verified 04/27/19 01:49 Visit Medications: Current Medications Acetaminophen (Tylenol) 650 mg PO Q4H PRN PRN Reason: Headache/Fever/Mild Pain (1-3) Last Admin: 08/23/19 17:52 Dose: 650 mg Hydrocodone Bitart/Acetaminophen ([place] 5/325) 1 tab PO Q4H PRN PRN Reason: Moderate Pain (4-6) Last Admin: 08/22/19 01:00 Dose: 1 tab Albumin Human (Albumin 25%) 25 gm IVPB Q6H [facility] Stop: 08/25/19 14:31 Last Admin: 08/24/19 14:49 Dose: 25 gm Albuterol/Ipratropium (Duoneb) 3 ml NEB [id number] [facility] Last Admin: 08/24/19 12:32 Dose: 3 ml Atorvastatin Calcium (Lipitor) 40 mg PO HS [facility] Last Admin: 08/23/19 20:20 Dose: 40 mg Carvedilol (Coreg) 12.5 mg PO BID [facility] Last Admin: 08/24/19 08:31 Dose: 12.5 mg Clopidogrel Bisulfate (Plavix) 75 mg PO DAILY [facility] Last Admin: 08/24/19 08:32 Dose: 75 mg Dextrose/Water (Dextrose 50%) 25 gm SLOW IVP PRN PRN PRN Reason: Hypoglycemia Escitalopram Oxalate (Lexapro) 20 mg PO DAILY [facility] Last Admin: 08/24/19 08:34 Dose: 20 mg Famotidine (Pepcid) 20 mg PO BID [facility] Last Admin: 08/24/19 08:31 Dose: 20 mg Fluticasone Propionate (Flonase Nasal [place]) 0 gm NASAL DAILYPRN PRN PRN Reason: nasal stuffiness Glucagon (Glucagon) 1 mg IM PRN PRN PRN Reason: Hypoglycemia Dextrose/Water (D5w) 1,000 mls @ 0 mls/hr IV .Q0M PRN PRN Reason: Hypoglycemia Insulin Human Lispro (Humalog) 0 units SC .MODERATE SLIDING SC PRN PRN Reason: Moderate Correctional Scale Last Admin: 08/24/19 12:47 Dose: 10 unit Insulin Human Lispro (Humalog) 0 units SC .BEDTIME SLIDING SC PRN PRN Reason: Bedtime Correctional Scale Last Admin: 08/23/19 23:13 Dose: 2 unit Levothyroxine Sodium (Synthroid) 50 mcg PO 0600 [facility] Last Admin: 08/24/19 06:01 Dose: 50 mcg Lidocaine (Lidoderm 5% Patch) 1 patch TD DAILY [facility] Last Admin: 08/24/19 08:34 Dose: 1 patch Methylprednisolone Sodium Succinate (Solu-Medrol) 20 mg IVP Q8HR [facility] Last Admin: 08/24/19 14:46 Dose: 20 mg Miscellaneous Medication (Lidocaine Patch Removal) 1 each TOP 2100 [facility] Last Admin: 08/23/19 20:23 Dose: 1 each Multivitamins (Theragran) 1 tab PO DAILY [facility] Last Admin: 08/24/19 08:33 Dose: 1 tab Nitroglycerin (Nitrostat) 0.4 mg SL Q5MIN PRN PRN Reason: Chest Pain Last Admin: 08/20/19 19:45 Dose: 1 tab Ondansetron HCl (Zofran Odt) 4 mg PO Q6H PRN PRN Reason: Nausea/Vomiting Last Admin: 08/21/19 04:50 Dose: 4 mg Pregabalin (Lyrica) 100 mg PO BID [facility] Last Admin: 08/24/19 08:32 Dose: 100 mg Vital Signs & Weight: Vital Signs Temp Pulse Resp BP BP BP Pulse Ox 08/24/19 12:32 95 18 08/24/19 11:15 98.8 F 99 24 H 130/64 94 L 08/24/19 08:31 119/85 08/24/19 08:20 99.0 F 98 22 H 119/85 93 L Weight 219 lb 3.2 oz - Physical Exam General: alert & oriented x3 HEENT: mucus membranes moist Neck: supple neck Cardiac: regular rate and rhythm Lungs: clear to auscultation Neuro: grossly intact Abdomen: active bowel sounds Extremities: 1+ LE edema Skin: clear Musculoskeletal: no pain - Labs Result Diagrams: 08/24/19 03:56 08/24/19 03:56 Troponin/CKMB CK-MB (CK-2) 1.0 ng/mL (0-6.6) 08/20/19 23:06 Troponin I 0.134 ng/mL (< 0.028) H 08/20/19 23:06 - Telemetry Sinus rhythms and dysrhythmias: sinus rhythm - Assessment/Plan Assessment/Plan: 1. Unstable angina. 2. CAD 3. Paroxysmal afib 4. PATRICA on CKD, likely contrast induced nephropathy. PLAN: - S/P POOJA of LAD and RCA on top of old BMS. - Mild fluid overload resolved but creatinine increased. - Will get Nephrology involved.
[2019-08-24] MEDS ORDERED: Sodium Chloride 0.9% 500 ML IV SCH (17:45)
--- NOTE | 2019-08-24 18:35 | CON ---
DATE OF CONSULTATION: REASON FOR CONSULTATION: Acute renal failure. HISTORY OF PRESENT ILLNESS: This is a very pleasant 63-year-old female who was admitted for chest tightness. The patient had a cardiac cath. Her creatinine baseline was anywhere from 1.8 to 2.5, increased to 2.7 today, so I was consulted. The patient denies any nausea, vomiting, or chest pain. PAST MEDICAL HISTORY: Coronary artery disease, diabetes mellitus, hypothyroidism, CKD stage 4, multiple episodes of acute kidney injury, bradycardia, anxiety, atrial fibrillation, stent placement, hysterectomy, right leg surgery, and cyst removal. SOCIOECONOMIC HISTORY: No alcohol or drug use. FAMILY HISTORY: Negative for ESRD. HOME MEDICATIONS: List reviewed. HOSPITAL MEDICATIONS: List reviewed. ALLERGIES: REVIEWED. REVIEW OF SYSTEMS: Fifteen-point system was performed, negative except for positives noted above. GENERAL: HEAD: NECK: No swelling or lumps. NOSE: No epistaxis or discharge. EYES: No diplopia or pain. RESPIRATORY: CARDIOVASCULAR: GASTROINTESTINAL: /FIRMWARE SOFTWARE VERIFICATION ENGINEER: MUSCULOSKELETAL: No joint pain. NEUROPSYCHIATRIC SYSTEMS: No suicidal ideation. No ideation. SKIN: Denies any rash or ulcer. CONSTITUTIONAL: No fever or chills. PHYSICAL EXAMINATION: CONSTITUTIONAL: The patient is awake and alert. VITAL SIGNS: Pulse 85, breathing 16, and blood pressure 130/64. GENERAL APPEARANCE AND MENTAL STATUS: Fair. HEAD/NECK: Normocephalic. Atraumatic. EYES: EOMI. No deformity. EARS: Clear. No ulcers. NOSE: Intact. No lesions. MOUTH: Clear. No discharge. THROAT: Clear. No exudate. LUNGS: Clear. No crackles. CARDIAC: S1, S2. No rub. ABDOMEN: Benign. Bowel sounds positive. GENITALIA/RECTUM: Howard absent. BACK/EXTREMITIES: Edema 0+. NEUROLOGICAL: Alert and motor intact. SKIN: LYMPHATICS: LABORATORY DATA: Labs show creatinine is 2.7. ASSESSMENT AND RECOMMENDATIONS: Acute kidney injury with chronic kidney disease, most likely due to multiple causes, which include progressive diabetic nephropathy in the setting of contrast exposure and baseline chronic kidney disease stage 4, so no other exacerbating factors, but underlying disease process is diabetic nephropathy. We will monitor conservatively. Avoid nephrotoxic medication. Continue gentle hydration if indicated. Currently, the patient has some dyspnea, so we will avoid hydration. Anemia, stable. Medication based on GFR appropriate. Proteinuria, we will check random protein creatinine ratio. No indication for dialysis at this time. We will order renal imaging if it is not done. Job ID: [id number]
[2019-08-24] MEDS: Atorvastatin Calcium 40 MG TAB PO SCH (20:16)
[2019-08-24] MEDS: HYDROcodone/Acetaminophen 5/325 mg Tablet PO PRN (20:42)
[2019-08-24] MEDS: Lidocaine Patch Removal 1 EACH TOP SCH (20:47)
[2019-08-25] MEDS: Albumin 25% 25 GM/100 ML BOT IVPB SCH ×2 (02:55→08:35)
[2019-08-25] MEDS: methylPREDNISolone Sod Succ 40 MG VIAL IVP SCH (05:18)
[2019-08-25] MEDS: Levothyroxine Sodium 50 MCG TAB PO SCH (05:18)
[2019-08-25] MEDS ORDERED: Insulin Glargine 20 UNITS in Pre-Filled Syringe 1 EACH SC SCH (06:30)
[2019-08-25] MEDS: Lidocaine 5% Patch TD SCH (08:32)
[2019-08-25] MEDS: glipiZIDE 10 MG TAB PO SCH ×2 (08:32→17:51)
[2019-08-25] MEDS: Carvedilol 6.25 MG TAB PO SCH ×2 (08:32→20:13)
[2019-08-25] MEDS: hydrALAZINE 25 MG TAB PO SCH ×2 (08:33→20:14)
[2019-08-25] MEDS: Escitalopram Oxalate 20 mg Tablet PO SCH (08:34)
[2019-08-25] MEDS: predniSONE 5 MG TAB PO SCH (08:34)
[2019-08-25] MEDS: Famotidine 20 MG TAB PO SCH ×2 (08:34→08:54)
[2019-08-25] MEDS: Clopidogrel Bisulfate 75 MG TAB PO SCH (08:34)
[2019-08-25] MEDS: Multivit, Therapeutic 1 TAB PO SCH (08:34)
[2019-08-25] MEDS: Pregabalin 50 MG CAP PO SCH ×2 (08:56→20:14)
[2019-08-25 10:49] LABS: Anion Gap 20 mmol/L (10-20); BUN (Urea Nitrogen) 77 mg/dL (9.8-20.1); Calc. Creatinine Clearance 34 mL/min (70-130); Calcium 9.3 mg/dL (7.8-10.44); Carbon Dioxide 18 mmol/L (23-31); Chloride 100 mmol/L (98-107); Estimated GFR-MDRD 17; Potassium 5.7 mmol/L (3.5-5.1); Sodium 132 mmol/L (136-145)
[2019-08-25 10:56] LABS: Glucose 577 mg/dL (80-115)
[2019-08-25] MEDS: HumaLOG 300 UNITS/3 ML VIAL SC PRN ×3 (11:09→21:04)
--- NOTE | 2019-08-25 11:48 | PDOC.HOSPP ---
- Subjective Encounter Date: 08/25/19 Encounter Time: 08:15 Subjective: has sob, no chest pain or palp - Objective Vital Signs & Weight: Vital Signs (12 hours) Temp Pulse Pulse Pulse Resp BP BP 08/25/19 09:59 97 94 123/68 08/25/19 08:32 153/72 H 08/25/19 08:05 97.1 F L 96 20 08/25/19 07:36 106 H 16 08/25/19 04:00 98.5 F 98 16 08/24/19 23:52 93 16 BP BP Pulse Ox Pulse Ox Pulse Ox 08/25/19 09:59 129/63 92 L 89 L 08/25/19 08:32 08/25/19 08:05 138/76 94 L 08/25/19 07:36 08/25/19 04:00 149/74 H 100 08/24/19 23:52 96 Weight Weight 226 lb 2 oz I&O: 08/24/19 08/25/19 08/26/19 06:59 06:59 06:59 Intake Total 2840 1570 Balance 2840 1570 Result Diagrams: 08/24/19 03:56 08/25/19 10:21 Additional Labs: Accuchecks 08/25/19 08/24/19 08/24/19 04:55 20:20 20:17 POC Glucose 520 H 493 H 509 H 08/24/19 17:24 POC Glucose 392 H Hospitalist ROS - Medication Medications: Active Medications Generic Name Dose Route Start Last Admin Trade Name Freq PRN Reason Stop Dose Admin Acetaminophen 650 mg 08/20/19 01:50 08/23/19 17:52 Tylenol PO 650 mg Q4H PRN Administration Headache/Fever/Mild Pain (1-3) Hydrocodone Bitart/Acetaminophen 1 tab 08/22/19 00:35 08/24/19 20:42 [place] 5/325 PO 1 tab Q4H PRN Administration Moderate Pain (4-6) Albuterol/Ipratropium 3 ml 08/24/19 13:00 08/25/19 07:36 Duoneb NEB 3 ml [id number] CECILIA Administration Atorvastatin Calcium 40 mg 08/20/19 21:00 08/24/19 20:16 Lipitor PO 40 mg HS CECILIA Administration Carvedilol 12.5 mg 08/20/19 09:00 08/25/19 08:32 Coreg PO 12.5 mg BID CECILIA Administration Clopidogrel Bisulfate 75 mg 08/20/19 09:00 08/25/19 08:34 Plavix PO 75 mg DAILY CECILIA Administration Escitalopram Oxalate 20 mg 08/20/19 09:00 08/25/19 08:34 Lexapro PO 20 mg DAILY CECILIA Administration Famotidine 20 mg 08/25/19 09:00 08/25/19 08:54 Pepcid PO 20 mg DAILY CECILIA Administration Glipizide 10 mg 08/25/19 07:30 08/25/19 08:32 Glucotrol PO 10 mg BID-AC CECILIA Administration Hydralazine HCl 25 mg 08/25/19 09:00 08/25/19 08:33 Apresoline PO 25 mg BID [facility] Administration Insulin Human Lispro 0 units 08/21/19 13:54 08/25/19 11:09 Humalog SC 10 unit .MODERATE SLIDING SC PRN Administration Moderate Correctional Scale Insulin Human Lispro 0 units 08/21/19 21:43 08/24/19 20:28 Humalog SC 5 unit .BEDTIME SLIDING SC PRN Administration Bedtime Correctional Scale Levothyroxine Sodium 50 mcg 08/20/19 06:00 08/25/19 05:18 Synthroid PO 50 mcg 0600 [facility] Administration Lidocaine 1 patch 08/21/19 09:00 08/25/19 08:32 Lidoderm 5% Patch TD 1 patch DAILY CECILIA Administration Miscellaneous Medication 1 each 08/21/19 21:00 08/24/19 20:47 Lidocaine Patch Removal TOP Not Given 2100 [facility] Multivitamins 1 tab 08/20/19 09:00 08/25/19 08:34 Theragran PO 1 tab DAILY CECILIA Administration Nitroglycerin 0.4 mg 08/20/19 02:17 08/20/19 19:45 Nitrostat SL 1 tab Q5MIN PRN Administration Chest Pain Ondansetron HCl 4 mg 08/20/19 01:50 08/21/19 04:50 Zofran Odt PO 4 mg Q6H PRN Administration Nausea/Vomiting Prednisone 5 mg 08/25/19 08:00 08/25/19 08:34 Prednisone PO 5 mg QAM-WM [facility] Administration Pregabalin 100 mg 08/20/19 09:00 02/17/20 08:56 Lyrica PO 100 mg BID CECILIA Administration - Exam General Appearance: awake alert Eye: PERRL, anicteric sclera ENT: no oropharyngeal lesions, moist mucosa Neck: supple, no JVD Heart: RRR, no murmur Respiratory: rhonchi, wheezes Gastrointestinal: soft, non-tender, non-distended, normal bowel sounds Extremities: no cyanosis, no edema Neurological: cranial nerve grossly intact, no focal deficits Psychiatric: normal affect, A&O x 3 Hosp A/P (1) Unstable angina Status: Acute (2) CAD (coronary artery disease) Code(s): I25.10 - ATHSCL HEART DISEASE OF [place] CORONARY ARTERY W/O ANG PCTRS Status: Chronic Qualifiers: Coronary Disease-Associated Artery/Lesion type: [place] artery [place] vs. transplanted heart: [place] heart Associated angina: with stable angina Qualified Code(s): I25.118 - Atherosclerotic heart disease of [place] coronary artery with other forms of angina pectoris (3) Acute worsening of stage 3 chronic kidney disease Code(s): N18.3 - CHRONIC KIDNEY DISEASE, STAGE 3 (MODERATE) Status: Acute (4) Depression Code(s): F32.9 - MAJOR DEPRESSIVE DISORDER, SINGLE EPISODE, UNSPECIFIED Status : Chronic Qualifiers: Depression Type: major depressive disorder (5) Paroxysmal atrial fibrillation Code(s): I48.0 - PAROXYSMAL ATRIAL FIBRILLATION Status: Chronic (6) Anemia, normocytic normochromic Code(s): D64.9 - ANEMIA, UNSPECIFIED Status: Chronic (7) COPD (chronic obstructive pulmonary disease) Status: Chronic Qualifiers: COPD type: COPD with acute exacerbation Qualified Code(s): J44.1 - Chronic obstructive pulmonary disease with (acute) exacerbation (8) Chronic kidney disease, stage 3 Code(s): N18.3 - CHRONIC KIDNEY DISEASE, STAGE 3 (MODERATE) Status: Chronic (9) Chronic stage c diastolic heart failure Code(s): I50.32 - CHRONIC DIASTOLIC (CONGESTIVE) HEART FAILURE Status: Chronic (10) DM type 2 (diabetes mellitus, type 2) Status: Chronic Qualifiers: Diabetes mellitus assisted insulin use: with assisted use Diabetes mellitus complication status: with kidney complications Diabetes mellitus complication detail: with chronic kidney disease Chronic kidney disease stage : stage 3 (moderate) Qualified Code(s): E11.22 - Type 2 diabetes mellitus with diabetic chronic kidney disease; N18.3 - Chronic kidney disease, stage 3 ( moderate); Z79.4 - MCC (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 of insulin (11) Dyslipidemia Code(s): E78.5 - HYPERLIPIDEMIA, UNSPECIFIED Status: Chronic (12) HTN (hypertension) Code(s): I10 - ESSENTIAL (PRIMARY) HYPERTENSION Status: Chronic Qualifiers: Hypertension type: essential hypertension Qualified Code(s): I10 - Essential (primary) hypertension (13) Obesity (BMI 30.0-34.9) Code(s): E66.9 - OBESITY, UNSPECIFIED Status: Chronic - Plan s/p stent to LAD and RCA. is on asp, plavix, lipitor, coreg, synthorid. steroids, duonebs q6h, i.spirometry. Counselled her to ambulate more. hemostable echo showed a ef of 45% with apical/anteroseptal hypokinesis, also had rvsp of 52 cpap/outpt sleep study as expected her renal function got worse, albumin infusions To ambulate in hallway as tolerated will d/w
[2019-08-25] MEDS ORDERED: Furosemide 40 MG/4 ML VIAL SLOW IVP SCH ×2 (12:15→18:00)
--- NOTE | 2019-08-25 12:46 | PRG ---
DATE OF SERVICE: 08/25/2019 SUBJECTIVE: Patient was seen and examined at bedside and overnight events noted. Patient denies any shortness of breath or chest pain or palpitation. No history of nausea or vomiting or diarrhea or fever or chills or cramps. OBJECTIVE: GENERAL: This is a well-built female, in no apparent distress. VITAL SIGNS: Temperature 97.5. Heart rate . Respiratory rate 20. Blood pressure 138/76. HEENT: Atraumatic, normocephalic. Oral mucosa is moist NECK: Supple. CARDIOVASCULAR: S1, S2 heard. Rate and rhythm regular. RESPIRATORY: Clear to auscultation. GASTROINTESTINAL: Abdomen is soft. MUSCULOSKELETAL: No tenderness. No edema. DERMATOLOGIC: No skin rash. NEUROLOGIC: Alert and awake and oriented X3. No focal neurologic deficits. Moving all the extremities. PSYCHIATRIC: Mood and affect normal. LABORATORY DATA: Potassium 5.7, BUN is 77, creatinine is 2.8. ASSESSMENT AND PLAN: 1. Acute kidney injury on chronic kidney disease stage 4, most likely cardiorenal syndrome. The patient is having crackles and breathing problems. I would recommend Lasix 40 IV if okay with Cardiology and primary team. 2. Hyponatremia. Limit fluid. 3. Hyperkalemia most likely secondary to hyperglycemia. Agree with the insulin and also Lasix. 4. Acidosis, chronic. 5. Anemia. 6. Obesity. 7. Okay with giving Lasix for now. Limit fluid intake and limit potassium intake and we will follow. Monitor labs closely. Job ID: [id number]
--- NOTE | 2019-08-25 12:59 | RAD ---
EXAM: Two views chest PROVIDED CLINICAL HISTORY: Shortness of breath COMPARISON: 08/24/2019 FINDINGS: Cardiac silhouette is enlarged. Coronary artery stent overlies the left cardiac border. There are inc reased perihilar interstitial and alveolar opacities which have increased from the prior study worrisome for pulmonary edema. A small right pleural effusion is present. Significant motion is prese nt on the lateral view. Degenerative changes are present in the spine. IMPRESSION: 1. Cardiomegaly with perihilar interstitial and alveolar opacities worrisome for pulmonary edema. Inf ectious process is a possibility but thought less likely. Continued follow-up is recommended. 2. Small right pleural effusion..
--- NOTE | 2019-08-25 14:21 | PDOC.CPN ---
- Subjective Date: 08/25/19 Time: 14:17 Interval history: A lot more SOB today. Cannot lay flat without coughing and feeling short winded. No angina. - Review of Systems General: denies: fever/chills, weight/appetite/sleep changes, night sweats, fatigue Respiratory: reports: cough, shortness of breath, exercise intolerance. denies : congestion Cardiovascular: denies: chest pain, palpitation, edema, paroxysmal nocturnal dyspnea, orthopnea Gastrointestinal: denies: nausea, vomiting, diarrhea, constipation, abd pain, GI bleeding Musculoskeletal: denies: pain, tenderness, stiffness, swelling, arthritis/ arthralgias Neurological: denies: numbness, syncope, seizure, weakness - Objective Allergies/Adverse Reactions: Allergies Allergy/AdvReac Type Severity Reaction Status Date / Time latex Allergy Verified 01/24/19 22:40 meperidine [From Demerol] Allergy Verified 01/24/19 22:40 morphine Allergy Verified 01/24/19 22:40 aspirin AdvReac Verified 04/27/19 01:49 Visit Medications: Current Medications Acetaminophen (Tylenol) 650 mg PO Q4H PRN PRN Reason: Headache/Fever/Mild Pain (1-3) Last Admin: 08/23/19 17:52 Dose: 650 mg Hydrocodone Bitart/Acetaminophen ([place] 5/325) 1 tab PO Q4H PRN PRN Reason: Moderate Pain (4-6) Last Admin: 08/24/19 20:42 Dose: 1 tab Albuterol/Ipratropium (Duoneb) 3 ml NEB [id number] COUNT INCLUDES THE [facility] Last Admin: 08/25/19 13:29 Dose: 3 ml Atorvastatin Calcium (Lipitor) 40 mg PO HS COUNT INCLUDES THE [facility] Last Admin: 08/24/19 20:16 Dose: 40 mg Carvedilol (Coreg) 12.5 mg PO BID COUNT INCLUDES THE [facility] Last Admin: 08/25/19 08:32 Dose: 12.5 mg Clopidogrel Bisulfate (Plavix) 75 mg PO DAILY COUNT INCLUDES THE [facility] Last Admin: 08/25/19 08:34 Dose: 75 mg Dextrose/Water (Dextrose 50%) 25 gm SLOW IVP PRN PRN PRN Reason: Hypoglycemia Escitalopram Oxalate (Lexapro) 20 mg PO DAILY COUNT INCLUDES THE [facility] Last Admin: 08/25/19 08:34 Dose: 20 mg Famotidine (Pepcid) 20 mg PO DAILY COUNT INCLUDES THE [facility] Last Admin: 08/25/19 08:54 Dose: 20 mg Fluticasone Propionate (Flonase Nasal [place]) 0 gm NASAL DAILYPRN PRN PRN Reason: nasal stuffiness Glipizide (Glucotrol) 10 mg PO BID-AC COUNT INCLUDES THE [facility] Last Admin: 08/25/19 08:32 Dose: 10 mg Glucagon (Glucagon) 1 mg IM PRN PRN PRN Reason: Hypoglycemia Hydralazine HCl (Apresoline) 25 mg PO BID COUNT INCLUDES THE [facility] Last Admin: 08/25/19 08:33 Dose: 25 mg Dextrose/Water (D5w) 1,000 mls @ 0 mls/hr IV .Q0M PRN PRN Reason: Hypoglycemia Insulin Glargine 60 units/ (Miscellaneous Medication) 0.6 mls @ 0 mls/hr SC [facility] Insulin Human Lispro (Humalog) 0 units SC .MODERATE SLIDING SC PRN PRN Reason: Moderate Correctional Scale Last Admin: 08/25/19 11:09 Dose: 10 unit Insulin Human Lispro (Humalog) 0 units SC .BEDTIME SLIDING SC PRN PRN Reason: Bedtime Correctional Scale Last Admin: 08/24/19 20:28 Dose: 5 unit Levothyroxine Sodium (Synthroid) 50 mcg PO 0600 COUNT [facility]CLUDES [facility] Last Admin: 08/25/19 05:18 Dose: 50 mcg Lidocaine (Lidoderm 5% Patch) 1 patch TD DAILY COUNT INCLUDES THE [facility] Last Admin: 08/25/19 08:32 Dose: 1 patch Miscellaneous Medication (Lidocaine Patch Removal) 1 each TOP 2100 COUNT INCLUDES THE [facility] Last Admin: 08/24/19 20:47 Dose: Not Given Multivitamins (Theragran) 1 tab PO DAILY COUNT INCLUDES THE [facility] Last Admin: 08/25/19 08:34 Dose: 1 tab Nitroglycerin (Nitrostat) 0.4 mg SL Q5MIN PRN PRN Reason: Chest Pain Last Admin: 08/20/19 19:45 Dose: 1 tab Ondansetron HCl (Zofran Odt) 4 mg PO Q6H PRN PRN Reason: Nausea/Vomiting Last Admin: 08/21/19 04:50 Dose: 4 mg Prednisone (Prednisone) 5 mg PO QAM-[facility] Last Admin: 08/25/19 08:34 Dose: 5 mg Pregabalin (Lyrica) 100 mg PO BID CECILIA Last Admin: 08/25/19 08:56 Dose: 100 mg Vital Signs & Weight: Vital Signs Temp Pulse Pulse Pulse Resp BP BP 08/25/19 13:29 94 14 08/25/19 10:55 97.8 F 95 18 08/25/19 09:59 97 94 123/68 08/25/19 08:32 153/72 H 08/25/19 08:05 97.1 F L 96 20 08/25/19 07:36 106 H 16 08/25/19 04:00 98.5 F 98 16 BP BP BP Pulse Ox Pulse Ox Pulse Ox 08/25/19 13:29 08/25/19 10:55 123/68 96 08/25/19 09:59 129/63 92 L 89 L 08/25/19 08:32 08/25/19 08:05 138/76 94 L 08/25/19 07:36 08/25/19 04:00 149/74 H 100 Weight 226 lb 2 oz - Physical Exam General: alert & oriented x3 HEENT: mucus membranes moist Neck: supple neck Cardiac: regular rate and rhythm Lungs: bibasilar rales Neuro: grossly intact Abdomen: active bowel sounds Extremities: 2+ LE edema Skin: clear Musculoskeletal: no pain - Labs Result Diagrams: 08/24/19 03:56 08/25/19 10:21 Troponin/CKMB CK-MB (CK-2) 1.0 ng/mL (0-6.6) 08/20/19 23:06 Troponin I 0.134 ng/mL (< 0.028) H 08/20/19 23:06 - Telemetry Sinus rhythms and dysrhythmias: sinus rhythm - Assessment/Plan Assessment/Plan: 1. Unstable angina. 2. CAD 3. Paroxysmal afib 4. PATRICA on CKD, likely contrast induced nephropathy on top of underlying hypertensive and diabetic nephropathy. 5. Acute on chronic systolic heart failure. PLAN: - S/P POOJA of LAD and RCA on top of old BMS. - Volume up worse today. Will get CXR, will do BMP to get baseline from this point. - IV lasix for diuresis. - Appreciate Nephrology recs.
[2019-08-25 14:56] LABS: Anion Gap 19 mmol/L (10-20); BUN (Urea Nitrogen) 79 mg/dL (9.8-20.1); Calc. Creatinine Clearance 33 mL/min (70-130); Calcium 9.2 mg/dL (7.8-10.44); Carbon Dioxide 17 mmol/L (23-31); Chloride 99 mmol/L (98-107); Estimated GFR-MDRD 16; Glucose 534 mg/dL (80-115); Potassium 5.8 mmol/L (3.5-5.1); Sodium 129 mmol/L (136-145)
--- NOTE | 2019-08-25 15:43 | CON ---
DATE OF CONSULTATION: 08/25/2019 This encompassed 70 minutes of time, of that time greater than 50% spent with the patient and/or the patient unit in the hospital. CONSULTING PHYSICIAN: Enrique Douglass MD REASON FOR CONSULTATION: Pulmonary infiltrates and shortness of breath. HISTORY OF PRESENT ILLNESS: Ms. Mendez is a 63-year-old, who was originally brought into the hospital on 08/20/2019 to the Hospitalist Service. Her presenting symptom was chest pain. She was taken for a cardiac catheterization by Dr. Peter on 08/20/2019. The patient had a stent restenoses in both her LAD and RCA. She has had worsening of her kidney function since the heart catheterization. She has been given some fluid and some albumin. Her weight is up 15 pounds since admission. She is having more shortness of breath. She says she cannot lay down flat to brief. She denies any fever or chills. She has had a cough with dry sputum. PAST MEDICAL HISTORY: 1. Coronary artery disease. 2. Diabetes mellitus. 3. Hypothyroidism. 4. Hyperlipidemia. 5. She has been told she has asthma and COPD in the past, but has no smoking history. 6. Hypertension. 7. Bradycardia. 8. Fibromyalgia. 9. Migraines. 10. Anxiety. 11. Depression. 12. Paroxysmal atrial fibrillation. PAST SURGICAL HISTORY: 1. PCI to RCA and LAD. 2. Hysterectomy. 3. Right leg surgery. 4. Cyst removal from various parts of her body. SOCIAL HISTORY: Never smoker. Does not consume alcohol. She has had some secondhand smoke exposure. MEDICATIONS: Prior to admission: 1. Lexapro. 2. Xanax. 3. Tizanidine. 4. Multivitamin. 5. Lisinopril. 6. Carvedilol. 7. Flonase. 8. Plavix. 9. Atorvastatin. 10. Eliquis. 11. Insulin Lantus. 12. Furosemide. 13. Glipizide. 14. Lyrica. 15. Levothyroxine. ALLERGIES: LATEX, DEMEROL, MORPHINE, AND ASPIRIN. FAMILY MEDICAL HISTORY: Unremarkable. REVIEW OF SYSTEMS: Has paroxysmal nocturnal dyspnea and orthopnea. Has had no fever, chills, nausea, vomiting, hematemesis, melena, hematochezia, hematuria, or dysuria. PHYSICAL EXAMINATION: VITAL SIGNS: Temperature 97.8, pulse 95, respirations 18, O2 saturation 96% on 2 L, and blood pressure 123/68. She is 5 feet 8 inches and weighs 226 pounds. GENERAL: She appears in some moderate respiratory discomfort. HEENT: Pupils are reactive. Sclerae anicteric. Oropharynx clear. NECK: No adenopathy. She does have JVD when lying down. LUNGS: She has coarse breath sounds bilaterally with rhonchi at the bases. CARDIAC: S1 and S2. Regular without murmur. ABDOMEN: Soft, nontender, and nondistended. EXTREMITIES: No clubbing or cyanosis. She has trace pedal edema. LABORATORY DATA: Sodium 132, potassium 5.7, chloride 100, CO2 of 18, BUN 77, creatinine 2.8, and glucose 577. White blood count 6.9, hematocrit 26.1, and platelet count 170. Chest x-ray shows bilateral diffuse infiltrates. ASSESSMENT: This patient is presenting with worsening fluid overload with approximately 15 pounds of gained weight since admission. Likely, she is suffering from a contrast-induced nephropathy on top of chronic kidney disease. She has not responded to albumin or fluids as far as picking up her urine output and her BUN/creatinine continued to increase and her potassium is now beginning to increase. I do not suspect that we are looking at any infectious cause of her problem and I do not suspect this is from her COPD. RECOMMENDATION: She needs fluid removal and if that can be achieved through diuretics, then she needs dialysis. I have spoken to Dr. Douglass to relay my concerns to him. Job ID: [id number]
[2019-08-25] MEDS: Atorvastatin Calcium 40 MG TAB PO SCH (20:13)
[2019-08-25] MEDS: HYDROcodone/Acetaminophen 5/325 mg Tablet PO PRN (20:17)
[2019-08-25] MEDS ORDERED: Non-Formulary Item 1 EACH (Insulin Glargine,Hum.Rec.Anlog [Lantus Solostar] 60 UNIT) SQ SCH (21:00)
[2019-08-25] MEDS: Lidocaine Patch Removal 1 EACH TOP SCH (21:05)
[2019-08-25] MEDS: Insulin Glargine 60 UNITS in Pre-Filled Syringe 1 EACH SC SCH (21:07)
[2019-08-26 04:59] LABS: Anion Gap 17 mmol/L (10-20); BUN (Urea Nitrogen) 90 mg/dL (9.8-20.1); Calc. Creatinine Clearance 32 mL/min (70-130); Calcium 9.7 mg/dL (7.8-10.44); Carbon Dioxide 22 mmol/L (23-31); Chloride 100 mmol/L (98-107); Estimated GFR-MDRD 16; Glucose 186 mg/dL (80-115); Potassium 4.6 mmol/L (3.5-5.1); Sodium 134 mmol/L (136-145)
[2019-08-26] MEDS: Levothyroxine Sodium 50 MCG TAB PO SCH (05:30)
[2019-08-26] MEDS: Furosemide 100 MG/10 ML VIAL SLOW IVP SCH ×2 (05:30→16:13)
[2019-08-26] MEDS: HYDROcodone/Acetaminophen 5/325 mg Tablet PO PRN ×4 (05:35→22:19)
[2019-08-26] MEDS ORDERED: Furosemide 40 MG/4 ML VIAL SLOW IVP SCH (06:00)
[2019-08-26] MEDS: predniSONE 5 MG TAB PO SCH (08:13)
[2019-08-26] MEDS: Pregabalin 50 MG CAP PO SCH ×2 (08:13→21:55)
[2019-08-26] MEDS: Famotidine 20 MG TAB PO SCH (08:13)
[2019-08-26] MEDS: hydrALAZINE 25 MG TAB PO SCH ×2 (08:13→21:56)
[2019-08-26] MEDS: glipiZIDE 10 MG TAB PO SCH ×2 (08:13→17:58)
[2019-08-26] MEDS: Clopidogrel Bisulfate 75 MG TAB PO SCH (08:15)
[2019-08-26] MEDS: Escitalopram Oxalate 20 mg Tablet PO SCH (08:15)
[2019-08-26] MEDS: Multivit, Therapeutic 1 TAB PO SCH (08:15)
[2019-08-26] MEDS: HumaLOG 300 UNITS/3 ML VIAL SC PRN ×3 (08:16→17:58)
[2019-08-26] MEDS: Carvedilol 6.25 MG TAB PO SCH ×2 (08:23→21:55)
[2019-08-26] MEDS: Lidocaine 5% Patch TD SCH (09:26)
--- NOTE | 2019-08-26 09:27 | PRG ---
DATE OF SERVICE: 08/26/2019 SUBJECTIVE: The patient is doing reasonably well compared to yesterday. OBJECTIVE: VITAL SIGNS: Temperature 97.4, pulse 94, respirations 18, O2 saturation 96% on 2 L, and blood pressure 124/63. Total intake 1570, output not completely measured. Weight 227 pounds. HEENT: Unremarkable. NECK: No adenopathy or JVD. LUNGS: Coarse rhonchi. CARDIAC: S1 and S2, regular. ABDOMEN: Soft. EXTREMITIES: No edema. LABORATORY DATA: Sodium 134, potassium 4.6, chloride 100, CO2 of 22, BUN 90, creatinine 3.0, glucose 186. BNP level was over 2000. ASSESSMENT: 1. Acute on chronic kidney disease. 2. Grossly elevated BNP, indicative of probable systolic or diastolic heart dysfunction. PLAN: We would recommend either diuresis or dialysis. There is no indication for mechanical ventilation at this time. We will see as needed. Job ID: [id number]
[2019-08-26 11:11] LABS: HBSAB Concentration 1.64 mIU/mL; HBSAg Index 0.23 S/CO (0-0.99); Hep B Core Total Ab Non-Reactive (NonReactive); Hep B Core Total Index 0.09 S/CO (0-0.79); Hep B Surf AB Non-Reactive (NonReactive); Hep B Surf Ag Non-Reactive S/CO (NonReactive); Hep C IgG Ab Non-Reactive (NonReactive); Hep C Index 0.07 S/CO (0-0.79)
--- NOTE | 2019-08-26 11:55 | PDOC.HOSPP ---
- Subjective Encounter Date: 08/26/19 Encounter Time: 10:00 Subjective: sob same as yesterday, worse on exertion no chest pain or palp - Objective Vital Signs & Weight: Vital Signs (12 hours) Temp Pulse Resp BP Pulse Ox 08/26/19 07:20 96.5 F L 89 15 119/69 98 08/26/19 07:05 90 14 08/26/19 04:00 97.4 F L 94 18 124/63 96 Weight Weight 227 lb 6.4 oz I&O: 08/25/19 08/26/19 08/27/19 06:59 06:59 06:59 Intake Total 1570 2300 Output Total 1050 Balance 1570 1250 Result Diagrams: 08/24/19 03:56 08/26/19 03:57 Additional Labs: Accuchecks 08/26/19 08/25/19 08/25/19 06:03 20:44 16:40 POC Glucose 192 H 426 H 486 H 08/25/19 08/25/19 10:34 10:33 POC Glucose Greater than 550 H* Greater than 550 H* Hospitalist ROS - Medication Medications: Active Medications Generic Name Dose Route Start Last Admin Trade Name Freq PRN Reason Stop Dose Admin Acetaminophen 650 mg 08/20/19 01:50 08/23/19 17:52 Tylenol PO 650 mg Q4H PRN Administration Headache/Fever/Mild Pain (1-3) Hydrocodone Bitart/Acetaminophen 1 tab 08/22/19 00:35 08/26/19 09:26 [place] 5/325 PO 1 tab Q4H PRN Administration Moderate Pain (4-6) Albuterol/Ipratropium 3 ml 08/24/19 13:00 08/26/19 07:05 Duoneb NEB 3 ml [id number] CECILIA Administration Atorvastatin Calcium 40 mg 08/20/19 21:00 08/25/19 20:13 Lipitor PO 40 mg HS CECILIA Administration Carvedilol 12.5 mg 08/20/19 09:00 08/26/19 08:23 Coreg PO 12.5 mg BID CECILIA Administration Clopidogrel Bisulfate 75 mg 08/20/19 09:00 08/26/19 08:15 Plavix PO 75 mg DAILY CECILIA Administration Escitalopram Oxalate 20 mg 08/20/19 09:00 08/26/19 08:15 Lexapro PO 20 mg DAILY CECILIA Administration Famotidine 20 mg 08/25/19 09:00 08/26/19 08:13 Pepcid PO 20 mg DAILY CECILIA Administration Furosemide 80 mg 08/26/19 06:00 08/26/19 05:30 Lasix SLOW IVP 80 mg 0600,1400 CECILIA Administration Glipizide 10 mg 08/25/19 07:30 08/26/19 08:13 Glucotrol PO 10 mg BID-AC CECILIA Administration Hydralazine HCl 25 mg 08/25/19 09:00 08/26/19 08:13 Apresoline PO 25 mg BID CECILIA Administration Insulin Glargine 60 units/ 0.6 mls @ 0 mls/hr 08/25/19 21:00 08/25/19 21:07 Miscellaneous Medication SC 0.6 mls HS CECILIA Administration Insulin Human Lispro 0 units 08/21/19 13:54 08/26/19 08:16 Humalog SC 2 unit .MODERATE SLIDING SC PRN Administration Moderate Correctional Scale Insulin Human Lispro 0 units 08/21/19 21:43 08/25/19 21:04 Humalog SC 5 unit .BEDTIME SLIDING SC PRN Administration Bedtime Correctional Scale Levothyroxine Sodium 50 mcg 08/20/19 06:00 08/26/19 05:30 Synthroid PO 50 mcg 0600 CECILIA Administration Lidocaine 1 patch 08/21/19 09:00 08/26/19 09:26 Lidoderm 5% Patch TD 1 patch DAILY CECILIA Administration Miscellaneous Medication 1 each 08/21/19 21:00 08/25/19 21:05 Lidocaine Patch Removal TOP 1 each 2100 CECILIA Administration Multivitamins 1 tab 08/20/19 09:00 08/26/19 08:15 Theragran PO 1 tab DAILY CECILIA Administration Nitroglycerin 0.4 mg 08/20/19 02:17 08/20/19 19:45 Nitrostat SL 1 tab Q5MIN PRN Administration Chest Pain Ondansetron HCl 4 mg 08/20/19 01:50 08/21/19 04:50 Zofran Odt PO 4 mg Q6H PRN Administration Nausea/Vomiting Prednisone 5 mg 08/25/19 08:00 08/26/19 08:13 Prednisone PO 5 mg QAM-WM CECILIA Administration Pregabalin 100 mg 08/20/19 09:00 08/26/19 08:13 Lyrica PO 100 mg BID CECILIA Administration - Exam General Appearance: awake alert Eye: PERRL, anicteric sclera ENT: no oropharyngeal lesions, moist mucosa Neck: supple, no JVD Heart: no murmur, no gallops Respiratory: no wheezes, rales, rhonchi Gastrointestinal: soft, non-tender, non-distended, normal bowel sounds Extremities: no cyanosis, 1+ LE edema Neurological: cranial nerve grossly intact, no focal deficits Psychiatric: A&O x 3 Hosp A/P (1) Unstable angina Status: Acute (2) CAD (coronary artery disease) Code(s): I25.10 - ATHSCL HEART DISEASE OF [place] CORONARY ARTERY W/O ANG PCTRS Status: Chronic Qualifiers: Coronary Disease-Associated Artery/Lesion type: [place] artery [place] vs. transplanted heart: [place] heart Associated angina: with stable angina Qualified Code(s): I25.118 - Atherosclerotic heart disease of [place] coronary artery with other forms of angina pectoris (3) Acute worsening of stage 3 chronic kidney disease Code(s): N18.3 - CHRONIC KIDNEY DISEASE, STAGE 3 (MODERATE) Status: Acute (4) Depression Code(s): F32.9 - MAJOR DEPRESSIVE DISORDER, SINGLE EPISODE, UNSPECIFIED Status : Chronic Qualifiers: Depression Type: major depressive disorder (5) Paroxysmal atrial fibrillation Code(s): I48.0 - PAROXYSMAL ATRIAL FIBRILLATION Status: Chronic (6) Anemia, normocytic normochromic Code(s): D64.9 - ANEMIA, UNSPECIFIED Status: Chronic (7) COPD (chronic obstructive pulmonary disease) Status: Chronic Qualifiers: COPD type: COPD with acute exacerbation Qualified Code(s): J44.1 - Chronic obstructive pulmonary disease with (acute) exacerbation (8) Chronic kidney disease, stage 3 Code(s): N18.3 - CHRONIC KIDNEY DISEASE, STAGE 3 (MODERATE) Status: Chronic (9) Chronic stage c diastolic heart failure Code(s): I50.32 - CHRONIC DIASTOLIC (CONGESTIVE) HEART FAILURE Status: Chronic (10) DM type 2 (diabetes mellitus, type 2) Status: Chronic Qualifiers: 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: with intermediate school teacher use Diabetes mellitus complication status: with kidney complications Diabetes mellitus complication detail: with chronic kidney disease Chronic kidney disease stage : stage 3 (moderate) Qualified Code(s): E11.22 - Type 2 diabetes mellitus with diabetic chronic kidney disease; N18.3 - Chronic kidney disease, stage 3 ( moderate); Z79.4 - termination clerk (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 of insulin (11) Dyslipidemia Code(s): E78.5 - HYPERLIPIDEMIA, UNSPECIFIED Status: Chronic (12) HTN (hypertension) Code(s): I10 - ESSENTIAL (PRIMARY) HYPERTENSION Status: Chronic Qualifiers: Hypertension type: essential hypertension Qualified Code(s): I10 - Essential (primary) hypertension (13) Obesity (BMI 30.0-34.9) Code(s): E66.9 - OBESITY, UNSPECIFIED Status: Chronic - Plan will likey start on HD from this evening, d/w . s/p stent to LAD and RCA. is on asp, plavix, lipitor, coreg, synthorid. steroids, duonebs q6h, i.spirometry. Counselled her to ambulate more. hemostable echo showed a ef of 45% with apical/anteroseptal hypokinesis, also had rvsp of 52 cpap/outpt sleep study To ambulate in hallway as tolerated.
[2019-08-26] MEDS ORDERED: Heparin 10,000 UNITS/ 10 ML VIAL ONE (12:28)
--- NOTE | 2019-08-26 13:46 | ULT ---
BILATERAL UPPER EXTREMITY VENOUS MAPPIN08/26/19 HISTORY: Evaluation for dialysis access, end-stage renal disease. RIGHT UPPER EXTREMITY BRACHIAL ARTERY: 3.2 mm RADIAL ARTERY: 1.3 mm ULNAR ARTERY: 2.6 mm CEPHALIC VEIN Proximal Humerus: 1.6 mm Mid Humerus: 1.5 mm Distal Humerus: 1.6 mm Elbow: 1.7 mm Proximal Forearm: 3.0 mm Mid Forearm: 2.2 mm Distal Forearm: 1.5 mm BASILIC VEIN Proximal Humerus: 6.2 mm Mid Humerus: 4.3 mm Distal Humerus: 5.7 mm Elbow: 5.6 mm Proximal Forearm: 2.3 mm Mid Forearm: 1.3 mm Distal Forearm: 1.0 mm LEFT UPPER EXTREMITY BRACHIAL ARTERY: 3.7 mm RADIAL ARTERY: 1.1 mm ULNAR ARTERY: 2.7 mm CEPHALIC VEIN Proximal Humerus: Not seen. Mid Humerus: Not seen. Distal Humerus Not seen. Elbow: Not seen. Proximal Forearm: 1.7 mm Mid Forearm: 2.1 mm Distal Forearm: 1.8 mm BASILIC VEIN Proximal Humerus: 6.3 mm Mid Humerus: 3.4 mm Distal Humerus: 4.8 mm Elbow: 4.0 mm Proximal Forearm: 2.0 mm Mid Forearm: 1.8 mm Distal Forearm: 1.3 mm IMPRESSION: Vein mapping as described above. POS: JANENE
--- NOTE | 2019-08-26 14:38 | CON ---
DATE OF CONSULTATION: HISTORY OF PRESENT ILLNESS: Adela Mendez is a 63-year-old female from [facility]. She is . She has 2 grown children, she has 2 grandchildren. She has a history of morbid obesity, metabolic syndrome, insulin-dependent diabetes mellitus type 2, and hypertension. She has history of coronary artery disease, having had myocardial infarction a year ago and 2 coronary stents, and now presented with chest pain and had in-stent stenosis requiring intervention with Dr. Peter performing RCA and LAD stenting. The patient has progressive chronic kidney disease and is fluid overloaded. I have been asked by Dr. Pretty to place a hemodialysis femoral catheter to allow dialysis. GFR 16, BUN 90, creatinine 3.02, sodium 134, and potassium 4.6. Hemoglobin 8.9 and white count 6. The patient has intentionally lost weight from over 400 pounds to 220 pounds. By hospital records, she is 227 pounds, 5 feet 8 inches, and 34 BMI. ALLERGIES: LATEX, MEPERIDINE, MORPHINE, AND ASPIRIN. HABITS: Tobacco, none. Alcohol, none. MEDICATIONS: Outpatient: 1. Lexapro. 2. Xanax. 3. Tizanidine. 4. Multivitamins. 5. Lisinopril. 6. Coreg. 7. Plavix. 8. Calcium. 9. Eliquis. 10. NovoLog insulin. 11. Lantus SoloStar insulin. 12. Lasix. 13. Glipizide. 14. Lyrica. In the hospital, her Eliquis has been held. PAST SURGICAL HISTORY: 1. Hysterectomy. 2. Coronary stents a year ago and repeated in-stent stenosis stenting this hospitalization 4 days ago. 3. She has cyst removed from her breast and another one from her arm. 4. Bone graft on her leg. PAST MEDICAL HISTORY: 1. Morbid obesity. 2. Metabolic syndrome. 3. Insulin-dependent diabetes mellitus, type 2. 4. Hypertension. 5. Coronary artery disease, stenting as above. 6. Spinal stenosis, evaluated in [place]. 7. History of diverticulosis. 8. Atrial fibrillation. 9. Stage 4 kidney disease. PHYSICAL EXAMINATION: VITAL SIGNS: Height 5 feet 8 inches, 227 pounds, and 34 BMI. Temperature 98.1, heart rate 87, and blood pressure 121/60. HEAD, EARS, EYES, NOSE, AND THROAT: Unremarkable. NEUROLOGIC: Intact. LUNGS: Clear to auscultation. CARDIAC: Regular rhythm without murmur or gallop. ABDOMEN: Obese, soft. Large pannus, dependent. EXTREMITIES: Unremarkable. Mild edema. ASSESSMENT AND PLAN: 1. Chronic kidney disease, in need of dialysis access due to fluid overload. We will plan placement of temporary dialysis catheter in the groin. She may need a cuffed tunneled dialysis catheter in the future. Please call if necessary. She understands risks and benefits, consents. 2. Chronic kidney disease. Ultrasound vein mapping obtained today on 08/26/2019. The patient is left handed. Vein mapping reveals cephalic vein right 1.6, 1.5, 1.6, 1.7 mm at the elbow, proximal forearm, 3 mm, 2.2, and 1.5 basilic vein, 6.2, 4.3, 5.7, 5.6, elbow 2.3, proximal forearm, right. Left cephalic vein, left arm not seen, basilic vein 6.3, 3.4, 4.8, 4.0, elbow, proximal forearm 2 mm. 3. Morbid obesity. 4. Metabolic syndrome. 5. Intentional weight loss 400 to 220 pounds. Continue weight loss efforts. 6. Good activity level. She states she plays volleyball with her grown children. She is very proud of her grandchildren. 7. Diabetes mellitus. 8. Hypertension. 9. Coronary artery disease. Job ID: [id number]
--- NOTE | 2019-08-26 15:18 | OP ---
DATE OF PROCEDURE: 08/26/2019 PREOPERATIVE DIAGNOSES: 1. Chronic kidney disease. 2. Metabolic syndrome. 3. Intentional weight loss from 400 pounds to 220 pounds. 4. Diabetes mellitus. 5. Hypertension. 6. Coronary artery disease. 7. Need of dialysis access for fluid overload. POSTOPERATIVE DIAGNOSES: 1. Chronic kidney disease. 2. Metabolic syndrome. 3. Intentional weight loss from 400 pounds to 220 pounds. 4. Diabetes mellitus. 5. Hypertension. 6. Coronary artery disease. 7. Need of dialysis access for fluid overload. PROCEDURE PERFORMED: Right groin Trialysis catheter. ANESTHESIA: 1% Xylocaine. DESCRIPTION OF PROCEDURE: With the patient at bedside, her right groin was clipped of hair, prepared with ChloraPrep and draped in routine fashion. Local anesthetic with 1% Xylocaine was infiltrated in the skin and subcutaneous tissue about the operative site. Seldinger technique used to place. Catheter secured with 3-0 nylon suture, removing the J-wire, aspirating each port of blood, flushed with heparinized saline solution. Job ID: [id number]
--- NOTE | 2019-08-26 15:22 | PDOC.CPN ---
- Subjective Date: 08/26/19 Time: 15:20 Interval history: Her fluid level continues to increase and not diuresing well. Nephrology recommends initiating dialysis on a temporary basis for now. - Review of Systems General: denies: fever/chills, weight/appetite/sleep changes, night sweats, fatigue Respiratory: reports: shortness of breath. denies: cough, congestion, exercise intolerance Cardiovascular: denies: chest pain, palpitation, edema, paroxysmal nocturnal dyspnea, orthopnea Gastrointestinal: denies: nausea, vomiting, diarrhea, constipation, abd pain, GI bleeding Musculoskeletal: denies: pain, tenderness, stiffness, swelling, arthritis/ arthralgias Neurological: denies: numbness, syncope, seizure, weakness - Objective Allergies/Adverse Reactions: Allergies Allergy/AdvReac Type Severity Reaction Status Date / Time latex Allergy Verified 01/24/19 22:40 meperidine [From Demerol] Allergy Verified 01/24/19 22:40 morphine Allergy Verified 01/24/19 22:40 aspirin AdvReac Verified 04/27/19 01:49 Visit Medications: Current Medications Acetaminophen (Tylenol) 650 mg PO Q4H PRN PRN Reason: Headache/Fever/Mild Pain (1-3) Last Admin: 08/23/19 17:52 Dose: 650 mg Hydrocodone Bitart/Acetaminophen ([place] 5/325) 1 tab PO Q4H PRN PRN Reason: Moderate Pain (4-6) Last Admin: 08/26/19 09:26 Dose: 1 tab Albuterol/Ipratropium (Duoneb) 3 ml NEB [id number] [facility] Last Admin: 08/26/19 13:33 Dose: Not Given Atorvastatin Calcium (Lipitor) 40 mg PO HS [facility] Last Admin: 08/25/19 20:13 Dose: 40 mg Carvedilol (Coreg) 12.5 mg PO BID [facility] Last Admin: 08/26/19 08:23 Dose: 12.5 mg Clopidogrel Bisulfate (Plavix) 75 mg PO DAILY [facility] Last Admin: 08/26/19 08:15 Dose: 75 mg Dextrose/Water (Dextrose 50%) 25 gm SLOW IVP PRN PRN PRN Reason: Hypoglycemia Escitalopram Oxalate (Lexapro) 20 mg PO DAILY [facility] Last Admin: 08/26/19 08:15 Dose: 20 mg Famotidine (Pepcid) 20 mg PO DAILY [facility] Last Admin: 08/26/19 08:13 Dose: 20 mg Fluticasone Propionate (Flonase Nasal [place]) 0 gm NASAL DAILYPRN PRN PRN Reason: nasal stuffiness Furosemide (Lasix) 80 mg SLOW IVP 0600,1400 [facility] Last Admin: 08/26/19 05:30 Dose: 80 mg Glipizide (Glucotrol) 10 mg PO BID-AC [facility] Last Admin: 08/26/19 08:13 Dose: 10 mg Glucagon (Glucagon) 1 mg IM PRN PRN PRN Reason: Hypoglycemia Hydralazine HCl (Apresoline) 25 mg PO BID [facility] Last Admin: 08/26/19 08:13 Dose: 25 mg Dextrose/Water (D5w) 1,000 mls @ 0 mls/hr IV .Q0M PRN PRN Reason: Hypoglycemia Insulin Glargine 60 units/ (Miscellaneous Medication) 0.6 mls @ 0 mls/hr SC [facility] Last Admin: 08/25/19 21:07 Dose: 0.6 mls Insulin Human Lispro (Humalog) 0 units SC .MODERATE SLIDING SC PRN PRN Reason: Moderate Correctional Scale Last Admin: 08/26/19 13:40 Dose: 4 unit Insulin Human Lispro (Humalog) 0 units SC .BEDTIME SLIDING SC PRN PRN Reason: Bedtime Correctional Scale Last Admin: 08/25/19 21:04 Dose: 5 unit Levothyroxine Sodium (Synthroid) 50 mcg PO 0600 [facility] Last Admin: 08/26/19 05:30 Dose: 50 mcg Lidocaine (Lidoderm 5% Patch) 1 patch TD DAILY [facility] Last Admin: 08/26/19 09:26 Dose: 1 patch Miscellaneous Medication (Lidocaine Patch Removal) 1 each TOP 2100 [facility] Last Admin: 08/25/19 21:05 Dose: 1 each Multivitamins (Theragran) 1 tab PO DAILY [facility] Last Admin: 08/26/19 08:15 Dose: 1 tab Nitroglycerin (Nitrostat) 0.4 mg SL Q5MIN PRN PRN Reason: Chest Pain Last Admin: 08/20/19 19:45 Dose: 1 tab Ondansetron HCl (Zofran Odt) 4 mg PO Q6H PRN PRN Reason: Nausea/Vomiting Last Admin: 08/21/19 04:50 Dose: 4 mg Prednisone (Prednisone) 5 mg PO QAM-WM [facility] Last Admin: 08/26/19 08:13 Dose: 5 mg Pregabalin (Lyrica) 100 mg PO BID [facility] Last Admin: 08/26/19 08:13 Dose: 100 mg Vital Signs & Weight: Vital Signs Temp Pulse Resp BP Pulse Ox 08/26/19 12:50 98.1 F 87 14 121/60 95 08/26/19 07:20 96.5 F L 89 15 119/69 98 08/26/19 07:05 90 14 08/26/19 04:00 97.4 F L 94 18 124/63 96 Weight 227 lb 6.4 oz - Physical Exam General: alert & oriented x3 HEENT: mucus membranes moist Neck: supple neck Cardiac: regular rate and rhythm Lungs: bibasilar rales Neuro: grossly intact Abdomen: active bowel sounds Extremities: 2+ LE edema Skin: clear Musculoskeletal: no pain - Labs Result Diagrams: 08/24/19 03:56 08/26/19 03:57 Troponin/CKMB CK-MB (CK-2) 1.0 ng/mL (0-6.6) 08/20/19 23:06 Troponin I 0.134 ng/mL (< 0.028) H 08/20/19 23:06 - Telemetry Sinus rhythms and dysrhythmias: sinus rhythm - Assessment/Plan Assessment/Plan: 1. Unstable angina. 2. CAD 3. Paroxysmal afib 4. PATRICA on CKD, Stage 4 5. Acute on chronic systolic heart failure. 6. Ischemic CM EF at 35-40% PLAN: - S/P POOAJ of LAD and RCA on top of old BMS. - Volume up. Nephrology decided to start dialyusis. She will have 2 litres pulled out today.
--- NOTE | 2019-08-26 17:07 | PRG ---
DATE OF SERVICE: 08/26/2019 SUBJECTIVE: Patient was seen and examined at bedside and overnight events noted. She is having moderate resp distress after minimal exertion. Patient denies chest pain or palpitation. No history of nausea or vomiting or diarrhea or fever or chills or cramps. OBJECTIVE: GENERAL: This is a well-built female, in mild to moderate distress. VITAL SIGNS: Temperature 98.1. Heart rate 87. Respiratory rate 14. Blood pressure 121/60. HEENT: Atraumatic, normocephalic. Oral mucosa is moist NECK: Supple. CARDIOVASCULAR: S1, S2 heard. Rate and rhythm regular. RESPIRATORY: Crackles present. GASTROINTESTINAL: Abdomen is soft. MUSCULOSKELETAL: No tenderness. 1+ edema. DERMATOLOGIC: No skin rash. NEUROLOGIC: Alert and awake and oriented X3. No focal neurologic deficits. Moving all the extremities. PSYCHIATRIC: Mood and affect normal. LABORATORY DATA: Potassium is 4.6, BUN is 90, creatinine is 3.02. ASSESSMENT AND PLAN: 1. Acute kidney injury on chronic kidney disease, stage 4. Renal function is getting worse with no improvement in fluid status. The patient is still having short of breath even on minimal exertion. The patient agreed to have dialysis. We will have Surgery consult and once access is placed, we will start on dialysis. 2. Hyponatremia, limit fluid intake. 3. Hyperkalemia, better. 4. Acidosis, anemia of chronic disease. 5. Obesity. Plan to start on dialysis. The patient might need long-term access to appreciate help from Surgery. Job ID: [id number] [facility]
[2019-08-26] MEDS ORDERED: Tuberculin PPD 0.1 ML VIAL I-DERMAL SCH (20:00)
[2019-08-26] MEDS: Atorvastatin Calcium 40 MG TAB PO SCH (21:55)
[2019-08-26] MEDS: Lidocaine Patch Removal 1 EACH TOP SCH (22:02)
[2019-08-26] MEDS: Insulin Glargine 60 UNITS in Pre-Filled Syringe 1 EACH SC SCH (22:19)
[2019-08-27] MEDS: Levothyroxine Sodium 50 MCG TAB PO SCH (05:47)
[2019-08-27] MEDS: HYDROcodone/Acetaminophen 5/325 mg Tablet PO PRN (06:09)
[2019-08-27] MEDS: glipiZIDE 10 MG TAB PO SCH ×2 (08:54→17:34)
[2019-08-27] MEDS: predniSONE 5 MG TAB PO SCH (08:54)
[2019-08-27] MEDS: Carvedilol 6.25 MG TAB PO SCH ×2 (08:54→20:44)
[2019-08-27] MEDS: Escitalopram Oxalate 20 mg Tablet PO SCH (08:55)
[2019-08-27] MEDS: Lidocaine 5% Patch TD SCH (08:55)
[2019-08-27] MEDS: Clopidogrel Bisulfate 75 MG TAB PO SCH (08:55)
[2019-08-27] MEDS: hydrALAZINE 25 MG TAB PO SCH ×2 (08:55→20:44)
[2019-08-27] MEDS: Famotidine 20 MG TAB PO SCH (08:55)
[2019-08-27] MEDS: Multivit, Therapeutic 1 TAB PO SCH (08:55)
[2019-08-27] MEDS: Pregabalin 50 MG CAP PO SCH ×2 (08:56→20:43)
[2019-08-27 09:16] LABS: Iron 23 ug/dL (50-170); Iron Binding Capacity, Total 203 mcg/dL (265-497)
[2019-08-27 09:17] LABS: Anion Gap 16 mmol/L (10-20); BUN (Urea Nitrogen) 76 mg/dL (9.8-20.1); Calc. Creatinine Clearance 39 mL/min (70-130); Calcium 9.1 mg/dL (7.8-10.44); Carbon Dioxide 24 mmol/L (23-31); Chloride 102 mmol/L (98-107); Estimated GFR-MDRD 20; Glucose 100 mg/dL (80-115); Potassium 4.3 mmol/L (3.5-5.1); Sodium 138 mmol/L (136-145)
--- NOTE | 2019-08-27 11:15 | PRG ---
DATE OF SERVICE: 08/27/2019 SUBJECTIVE: Patient was seen and examined at bedside and overnight events noted. Patient denies any shortness of breath or chest pain or palpitation. No history of nausea or vomiting or diarrhea or fever or chills or cramps. The patient is breathing better today. OBJECTIVE: GENERAL: This is a well-built female, in no apparent distress. VITAL SIGNS: Temperature 97.8. Heart rate 85. Respiratory rate 16. Blood pressure 110/58. HEENT: Atraumatic, normocephalic. Oral mucosa is moist NECK: Supple. CARDIOVASCULAR: S1, S2 heard. Rate and rhythm regular. RESPIRATORY: Clear to auscultation. GASTROINTESTINAL: Abdomen is soft. MUSCULOSKELETAL: No tenderness. No edema. DERMATOLOGIC: No skin rash. NEUROLOGIC: Alert and awake and oriented X3. No focal neurologic deficits. Moving all the extremities. PSYCHIATRIC: Mood and affect normal. LABORATORY DATA: Potassium is 4.3, BUN is 76, and creatinine is 2.4. ASSESSMENT AND PLAN: 1. End-stage renal disease, started on hemodialysis. Plan is to have dialysis as tolerated. We will have 2 hours of dialysis today. 2. Edema. 3. Fluid overload. 4. Acidosis. 5. Hyperkalemia, better. 6. Obesity. 7. Anemia of chronic disease. Plan to have dialysis. We will have Case Management consult for outpatient placement. Appreciate help from Surgery. Job ID: [id number]
[2019-08-27] MEDS ORDERED: Heparin 10,000 UNITS/ 10 ML VIAL ONE (12:31)
--- NOTE | 2019-08-27 16:19 | PDOC.HOSPP ---
- Subjective Encounter Date: 08/27/19 Encounter Time: 10:30 Subjective: sob is better, no chest pain or palp is still weak to pull on the incentive spirometer has not ambulated much - Objective Vital Signs & Weight: Vital Signs (12 hours) Temp Pulse Pulse Pulse Resp BP BP 08/27/19 13:38 91 96 159/79 H 124/60 08/27/19 13:16 92 16 08/27/19 11:30 98.5 F 88 16 08/27/19 07:25 98.4 F 84 17 08/27/19 06:59 08/27/19 06:55 87 16 BP Pulse Ox Pulse Ox Pulse Ox 08/27/19 13:38 91 L 92 L 08/27/19 13:16 97 08/27/19 11:30 127/67 95 08/27/19 07:25 119/58 L 95 08/27/19 06:59 95 08/27/19 06:55 95 Weight Weight 227 lb 8.273 oz I&O: 08/26/19 08/27/19 08/28/19 06:59 06:59 06:59 Intake Total 2300 1260 Output Total 1050 3750 Balance 1250 -2490 Result Diagrams: 08/24/19 03:56 08/27/19 08:40 Additional Labs: Accuchecks 08/27/19 08/27/19 08/26/19 11:21 06:10 20:51 POC Glucose 142 H 121 H 356 H 08/26/19 18:00 POC Glucose 366 H Hospitalist ROS - Medication Medications: Active Medications Generic Name Dose Route Start Last Admin Trade Name Donnyq PRN Reason Stop Dose Admin Acetaminophen 650 mg 08/20/19 01:50 08/23/19 17:52 Tylenol PO 650 mg Q4H PRN Administration Headache/Fever/Mild Pain (1-3) Hydrocodone Bitart/Acetaminophen 1 tab 08/22/19 00:35 08/27/19 06:[address] [place] [address] 5/325 PO 1 tab Q4H PRN Administration Moderate Pain (4-6) Albuterol/Ipratropium 3 ml 08/24/19 13:00 08/27/19 13:16 Duoneb NEB 3 ml [id number] [facility] Administration Atorvastatin Calcium 40 mg 08/20/19 21:00 08/26/19 21:55 Lipitor PO 40 mg HS [facility] Administration Carvedilol 12.5 mg 08/20/19 09:00 08/27/19 08:54 Coreg PO 12.5 mg BID [facility] Administration Clopidogrel Bisulfate 75 mg 08/20/19 09:00 08/27/19 08:55 Plavix PO 75 mg DAILY [facility] Administration Escitalopram Oxalate 20 mg 08/20/19 09:00 08/27/19 08:55 Lexapro PO 20 mg DAILY [facility] Administration Famotidine 20 mg 08/25/19 09:00 08/27/19 08:55 Pepcid PO 20 mg DAILY [facility] Administration Glipizide 10 mg 08/25/19 07:30 08/27/19 08:54 Glucotrol PO 10 mg BID-AC [facility] Administration Heparin Sodium (Porcine) 500 units 08/27/19 09:00 08/27/19 08:55 Heparin Lock Flush 100 Units/Ml IVF 500 unit DAILY [facility] Administration Hydralazine HCl 25 mg 08/25/19 09:00 08/27/19 08:55 Apresoline PO 25 mg BID [facility] Administration Insulin Glargine 60 units/ 0.6 mls @ 0 mls/hr 08/25/19 21:00 08/26/19 22:19 Miscellaneous Medication SC 0.6 mls HS [facility] Administration Insulin Human Lispro 0 units 08/21/19 13:54 08/26/19 17:58 Humalog SC 10 unit .MODERATE SLIDING SC PRN Administration Moderate Correctional Scale Insulin Human Lispro 0 units 08/21/19 21:43 08/25/19 21:04 Humalog SC 5 unit .BEDTIME SLIDING SC PRN Administration Bedtime Correctional Scale Levothyroxine Sodium 50 mcg 08/20/19 06:00 08/27/19 05:47 Synthroid PO 50 mcg 0600 [facility] Administration Lidocaine 1 patch 08/21/19 09:00 08/27/19 08:55 Lidoderm 5% Patch TD 1 patch DAILY [facility] Administration Miscellaneous Medication 1 each 08/21/19 21:00 08/26/19 22:02 Lidocaine Patch Removal TOP Not Given 2100 [facility] Multivitamins 1 tab 08/20/19 09:00 08/27/19 08:55 Theragran PO 1 tab DAILY [facility] Administration Nitroglycerin 0.4 mg 08/20/19 02:17 08/20/19 19:45 Nitrostat SL 1 tab Q5MIN PRN Administration Chest Pain Ondansetron HCl 4 mg 08/20/19 01:50 08/21/19 04:50 Zofran Odt PO 4 mg Q6H PRN Administration Nausea/Vomiting Prednisone 5 mg 08/25/19 08:00 08/27/19 08:54 Prednisone PO 5 mg QAM-WM [facility] Administration Pregabalin 100 mg 08/20/19 09:00 08/27/19 08:56 Lyrica PO 100 mg BID [facility] Administration Sodium Chloride 10 ml 08/27/19 09:00 08/27/19 08:57 Flush - Normal Saline IVF 10 ml DAILY [facility] Administration - Exam General Appearance: awake alert Eye: PERRL, anicteric sclera ENT: no oropharyngeal lesions, moist mucosa Neck: supple, no JVD Heart: RRR, no murmur Respiratory: no wheezes, no rales Gastrointestinal: soft, non-tender, non-distended, normal bowel sounds Extremities: no cyanosis, 1+ LE edema Neurological: cranial nerve grossly intact, no focal deficits Psychiatric: A&O x 3 Hosp A/P (1) Unstable angina Status: Acute (2) CAD (coronary artery disease) Code(s): I25.10 - ATHSCL HEART DISEASE OF [place] CORONARY ARTERY W/O ANG PCTRS Status: Chronic Qualifiers: Coronary Disease-Associated Artery/Lesion type: [place] artery [place] vs. transplanted heart: [place] heart Associated angina: with stable angina Qualified Code(s): I25.118 - Atherosclerotic heart disease of [place] coronary artery with other forms of angina pectoris (3) Acute worsening of stage 3 chronic kidney disease Code(s): N18.3 - CHRONIC KIDNEY DISEASE, STAGE 3 (MODERATE) Status: Acute (4) Depression Code(s): F32.9 - MAJOR DEPRESSIVE DISORDER, SINGLE EPISODE, UNSPECIFIED Status : Chronic Qualifiers: Depression Type: major depressive disorder (5) Paroxysmal atrial fibrillation Code(s): I48.0 - PAROXYSMAL ATRIAL FIBRILLATION Status: Chronic (6) Anemia, normocytic normochromic Code(s): D64.9 - ANEMIA, UNSPECIFIED Status: Chronic (7) COPD (chronic obstructive pulmonary disease) Status: Chronic Qualifiers: COPD type: chronic bronchitis (8) Chronic kidney disease, stage 3 Code(s): N18.3 - CHRONIC KIDNEY DISEASE, STAGE 3 (MODERATE) Status: Chronic (9) Chronic stage c diastolic heart failure Code(s): I50.32 - CHRONIC DIASTOLIC (CONGESTIVE) HEART FAILURE Status: Chronic (10) DM type 2 (diabetes mellitus, type 2) Status: Chronic Qualifiers: Diabetes mellitus bed bug exterminator insulin use: with bed bug exterminator use Diabetes mellitus complication status: with kidney complications Diabetes mellitus complication detail: with chronic kidney disease Chronic kidney disease stage : stage 3 (moderate) Qualified Code(s): E11.22 - Type 2 diabetes mellitus with diabetic chronic kidney disease; N18.3 - Chronic kidney disease, stage 3 ( moderate); Z79.4 - manager terminal (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 of insulin (11) Dyslipidemia Code(s): E78.5 - HYPERLIPIDEMIA, UNSPECIFIED Status: Chronic (12) HTN (hypertension) Code(s): I10 - ESSENTIAL (PRIMARY) HYPERTENSION Status: Chronic Qualifiers: Hypertension type: essential hypertension Qualified Code(s): I10 - Essential (primary) hypertension (13) Obesity (BMI 30.0-34.9) Code(s): E66.9 - OBESITY, UNSPECIFIED Status: Chronic - Plan started on HD with removal of 2lts, d/w . s/p stent to LAD and RCA. is on asp, plavix, lipitor, coreg, synthorid. hermila q6h, i.spirometry. Counselled her to ambulate more. hemostable echo showed a ef of 45% with apical/anteroseptal hypokinesis, also had rvsp of 52 cpap/outpt sleep study To ambulate in hallway as tolerated, tx to med floor will likely need placement if she didnt ambulate much, outpt HD chair per nephr advice.
[2019-08-27] MEDS: EPOETIN ALFA-EPBX (ESRD) 10,000 UNIT/ML VIAL IVP SCH (17:34)
[2019-08-27] MEDS: HumaLOG 300 UNITS/3 ML VIAL SC PRN (17:34)
--- NOTE | 2019-08-27 18:38 | PDOC.CPN ---
- Subjective Date: 08/27/19 Time: 18:36 Interval history: She is feeling a lot better than what she has felt in a long time. She had HD yesterday. - Review of Systems General: denies: fever/chills, weight/appetite/sleep changes, night sweats, fatigue Respiratory: denies: cough, congestion, shortness of breath, exercise intolerance Cardiovascular: denies: chest pain, palpitation, edema, paroxysmal nocturnal dyspnea, orthopnea Gastrointestinal: denies: nausea, vomiting, diarrhea, constipation, abd pain, GI bleeding Musculoskeletal: denies: pain, tenderness, stiffness, swelling, arthritis/ arthralgias Neurological: denies: numbness, syncope, seizure, weakness - Objective Allergies/Adverse Reactions: Allergies Allergy/AdvReac Type Severity Reaction Status Date / Time latex Allergy Verified 01/24/19 22:40 meperidine [From Demerol] Allergy Verified 01/24/19 22:40 morphine Allergy Verified 01/24/19 22:40 aspirin AdvReac Verified 04/27/19 01:49 Visit Medications: Current Medications Acetaminophen (Tylenol) 650 mg PO Q4H PRN PRN Reason: Headache/Fever/Mild Pain (1-3) Last Admin: 08/23/19 17:52 Dose: 650 mg Hydrocodone Bitart/Acetaminophen ([place] 5/325) 1 tab PO Q4H PRN PRN Reason: Moderate Pain (4-6) Last Admin: 08/27/19 06:09 Dose: 1 tab Albuterol/Ipratropium (Duoneb) 3 ml NEB [id number] [facility] Last Admin: 08/27/19 18:22 Dose: 3 ml Atorvastatin Calcium (Lipitor) 40 mg PO HS [facility] Last Admin: 08/26/19 21:55 Dose: 40 mg Carvedilol (Coreg) 12.5 mg PO BID [facility] Last Admin: 08/27/19 08:54 Dose: 12.5 mg Clopidogrel Bisulfate (Plavix) 75 mg PO DAILY [facility] Last Admin: 08/27/19 08:55 Dose: 75 mg Dextrose/Water (Dextrose 50%) 25 gm SLOW IVP PRN PRN PRN Reason: Hypoglycemia Epoetin Solis-epbx (Retacrit) 10,000 unit IVP MoWeFr [facility] Last Admin: 08/27/19 17:34 Dose: 10,000 unit Escitalopram Oxalate (Lexapro) 20 mg PO DAILY [facility] Last Admin: 08/27/19 08:55 Dose: 20 mg Famotidine (Pepcid) 20 mg PO DAILY [facility] Last Admin: 08/27/19 08:55 Dose: 20 mg Fluticasone Propionate (Flonase Nasal [place]) 0 gm NASAL DAILYPRN PRN PRN Reason: nasal stuffiness Glipizide (Glucotrol) 10 mg PO BID-AC [facility] Last Admin: 08/27/19 17:34 Dose: 10 mg Glucagon (Glucagon) 1 mg IM PRN PRN PRN Reason: Hypoglycemia Heparin Sodium (Porcine) (Heparin Lock Flush 100 Units/Ml) 500 units IVF DAILY [facility] Last Admin: 08/27/19 08:55 Dose: 500 unit Hydralazine HCl (Apresoline) 25 mg PO BID [facility] Last Admin: 08/27/19 08:55 Dose: 25 mg Dextrose/Water (D5w) 1,000 mls @ 0 mls/hr IV .Q0M PRN PRN Reason: Hypoglycemia Insulin Glargine 60 units/ (Miscellaneous Medication) 0.6 mls @ 0 mls/hr SC [facility] Last Admin: 08/26/19 22:19 Dose: 0.6 mls Insulin Human Lispro (Humalog) 0 units SC .MODERATE SLIDING SC PRN PRN Reason: Moderate Correctional Scale Last Admin: 08/27/19 17:34 Dose: 8 unit Insulin Human Lispro (Humalog) 0 units SC .BEDTIME SLIDING SC PRN PRN Reason: Bedtime Correctional Scale Last Admin: 08/25/19 21:04 Dose: 5 unit Levothyroxine Sodium (Synthroid) 50 mcg PO 0600 [facility] Last Admin: 08/27/19 05:47 Dose: 50 mcg Lidocaine (Lidoderm 5% Patch) 1 patch TD DAILY [facility] Last Admin: 08/27/19 08:55 Dose: 1 patch Miscellaneous Medication (Lidocaine Patch Removal) 1 each TOP 2100 [facility] Last Admin: 08/26/19 22:02 Dose: Not Given Multivitamins (Theragran) 1 tab PO DAILY [facility] Last Admin: 08/27/19 08:55 Dose: 1 tab Nitroglycerin (Nitrostat) 0.4 mg SL Q5MIN PRN PRN Reason: Chest Pain Last Admin: 08/20/19 19:45 Dose: 1 tab Read Ppd Test Site 0 each PO 1999 [facility] Stop: 08/28/19 22:00 Read Ppd Test Site 0 each PO 1999 [facility] Stop: 08/29/19 22:00 Ondansetron HCl (Zofran Odt) 4 mg PO Q6H PRN PRN Reason: Nausea/Vomiting Last Admin: 08/21/19 04:50 Dose: 4 mg Prednisone (Prednisone) 5 mg PO QAM-WM [facility] Last Admin: 08/27/19 08:54 Dose: 5 mg Pregabalin (Lyrica) 100 mg PO BID [facility] Last Admin: 08/27/19 08:56 Dose: 100 mg Sodium Chloride (Flush - Normal Saline) 10 ml IVF DAILY [facility] Last Admin: 08/27/19 08:57 Dose: 10 ml Vital Signs & Weight: Vital Signs Temp Pulse Pulse Pulse Resp BP BP 08/27/19 18:22 89 18 08/27/19 15:36 98.0 F 94 14 08/27/19 13:38 91 96 159/79 H 124/60 08/27/19 13:16 92 16 08/27/19 11:30 98.5 F 88 16 08/27/19 07:25 98.4 F 84 17 08/27/19 06:59 08/27/19 06:55 87 16 BP Pulse Ox Pulse Ox Pulse Ox 08/27/19 18:22 94 L 08/27/19 15:36 130/61 93 L 08/27/19 13:38 91 L 92 L 08/27/19 13:16 97 08/27/19 11:30 127/67 95 08/27/19 07:25 119/58 L 95 08/27/19 06:59 95 08/27/19 06:55 95 Weight 227 lb 8.273 oz - Physical Exam General: alert & oriented x3 HEENT: mucus membranes moist Neck: supple neck Cardiac: regular rate and rhythm Lungs: clear to auscultation Neuro: grossly intact Abdomen: unremarkable Extremities: no edema Skin: clear Musculoskeletal: no pain - Labs Result Diagrams: 08/24/19 03:56 08/27/19 08:40 Troponin/CKMB CK-MB (CK-2) 1.0 ng/mL (0-6.6) 08/20/19 23:06 Troponin I 0.134 ng/mL (< 0.028) H 08/20/19 23:06 - Telemetry Sinus rhythms and dysrhythmias: sinus rhythm - Assessment/Plan Assessment/Plan: 1. Unstable angina. 2. CAD 3. Paroxysmal afib 4. CKD, Stage 5 5. Acute on chronic systolic heart failure, improved. 6. Ischemic CM EF at 35-40% PLAN: - S/P POOJA of LAD and RCA on top of old BMS. - Doing much better today. - May need rodent exterminator dialysis as she has had a veyr low GFR for many yrs now. - CV stable. - Disposition per nephrology. May discharge any time from cardiac perspective.
[2019-08-27] MEDS: Atorvastatin Calcium 40 MG TAB PO SCH (20:43)
[2019-08-27] MEDS: Isosorbide Dinitrate 5 MG TAB PO SCH (20:43)
[2019-08-27] MEDS: Insulin Glargine 60 UNITS in Pre-Filled Syringe 1 EACH SC SCH (20:44)
[2019-08-27] MEDS: Lidocaine Patch Removal 1 EACH TOP SCH (20:45)
--- NOTE | 2019-08-27 22:50 | PDOC.BPN ---
- Brief Progress Note I was contacted as the patient was found down at the side of the bed Patient currently sitting in a wheelchair Patient states that she was trying to get out of bed into the wheelchair and she felt lightheaded as if she was going to black out She had a fall and injured her left knee She denies passing out or hitting her head She reports using a cane at home but states that she is unable to use it well She reports frequent dizziness when she gets up from sitting position Patient started on hemodialysis and recently had her first session Ischemic cardiomyopathy with CHF Patient also reports nose bleeds in the morning On exam, sitting in wheelchair Bilateral basal crepitations Will hold off on transfer off tele tonight PT & OT eval and treat AM to reevaluate need for telemetry Will obtain orthostatic vitals May need dose adjustment of her HTN regimen
[2019-08-28] MEDS: Levothyroxine Sodium 50 MCG TAB PO SCH (05:37)
[2019-08-28 06:23] LABS: Anion Gap 13 mmol/L (10-20); BUN (Urea Nitrogen) 65 mg/dL (9.8-20.1); Calc. Creatinine Clearance 47 mL/min (70-130); Calcium 8.7 mg/dL (7.8-10.44); Carbon Dioxide 27 mmol/L (23-31); Chloride 102 mmol/L (98-107); Estimated GFR-MDRD 25; Glucose 77 mg/dL (80-115); Potassium 3.9 mmol/L (3.5-5.1); Sodium 138 mmol/L (136-145)
[2019-08-28] MEDS: Carvedilol 6.25 MG TAB PO SCH ×2 (09:09→20:42)
[2019-08-28] MEDS: Famotidine 20 MG TAB PO SCH (09:10)
[2019-08-28] MEDS: Escitalopram Oxalate 20 mg Tablet PO SCH (09:10)
[2019-08-28] MEDS: Clopidogrel Bisulfate 75 MG TAB PO SCH (09:10)
[2019-08-28] MEDS: hydrALAZINE 25 MG TAB PO SCH ×2 (09:10→20:43)
[2019-08-28] MEDS: Pregabalin 50 MG CAP PO SCH ×2 (09:11→20:42)
[2019-08-28] MEDS: Isosorbide Dinitrate 5 MG TAB PO SCH ×2 (09:11→20:56)
[2019-08-28] MEDS: Multivit, Therapeutic 1 TAB PO SCH (09:11)
[2019-08-28] MEDS: Lidocaine 5% Patch TD SCH (09:11)
[2019-08-28] MEDS: HYDROcodone/Acetaminophen 5/325 mg Tablet PO PRN (09:13)
--- NOTE | 2019-08-28 11:32 | PRG ---
DATE OF SERVICE: 08/28/2019 SUBJECTIVE: Patient was seen and examined at bedside and overnight events noted. Patient denies any shortness of breath or chest pain or palpitation. No history of nausea or vomiting or diarrhea or fever or chills or cramps. OBJECTIVE: GENERAL: This is a well-built female, in no acute distress. VITAL SIGNS: Temperature 97.5, pulse 89, respiratory rate 16, blood pressure 128/71. HEENT: Atraumatic, normocephalic. Oral mucosa is moist NECK: Supple. CARDIOVASCULAR: S1, S2 heard. Rate and rhythm regular. RESPIRATORY: Clear to auscultation. GASTROINTESTINAL: Abdomen is soft. MUSCULOSKELETAL: No tenderness. No edema. DERMATOLOGIC: No skin rash. NEUROLOGIC: Alert and awake and oriented X3. No focal neurologic deficits. Moving all the extremities. PSYCHIATRIC: Mood and affect normal. LABORATORY DATA: Potassium 3.9, BUN is 65, creatinine is 2.05. ASSESSMENT AND PLAN: 1. End-stage renal disease. Plan is to continue on dialysis. We will have Surgery to put tunneled dialysis catheter and also fistula placed. 2. Edema, remove fluid, dialysis. 3. Fluid overload, better. 4. Acidosis, chronic. 5. Hyperkalemia. 6. Obesity. 7. Anemia of chronic disease. 8. Case management consult for outpatient placement. Order was placed for tuberculin test and we will follow. No dialysis today. We will continue dialysis Sunday, Sunday, Sunday. Job ID: [id number]
[2019-08-28] MEDS ORDERED: cefTRIAXone\\ROCEPHIN 1 GM in Sodium Chloride 0.9% 100 ML IVPB SCH (12:30)
[2019-08-28 12:46] VITALS: BMI 34.7
--- NOTE | 2019-08-28 12:49 | PDOC.HOSPP ---
- Subjective Encounter Date: 08/28/19 Encounter Time: 09:15 Subjective: no sob, is ambulating in room, no dizziness. feels better overall no knee pain now - Objective Vital Signs & Weight: Vital Signs (12 hours) Temp Pulse Pulse Pulse Resp BP BP 08/28/19 11:15 99.1 F 85 14 08/28/19 09:37 101 H 95 164/73 H 134/72 08/28/19 07:08 97.5 F L 89 16 08/28/19 07:01 08/28/19 06:59 89 20 08/28/19 04:00 98.1 F 87 18 BP Pulse Ox Pulse Ox Pulse Ox 08/28/19 11:15 124/58 L 94 L 08/28/19 09:37 92 L 92 L 08/28/19 07:08 128/71 98 08/28/19 07:01 95 08/28/19 06:59 95 08/28/19 04:00 141/71 H 94 L Weight Admit Weight 211 lb 8 oz Weight 228 lb 12.8 oz I&O: 08/27/19 08/28/19 08/29/19 06:59 06:59 06:59 Intake Total 1260 1020 Output Total 3750 3000 Balance -2489 -1979 Result Diagrams: 08/24/19 03:56 08/28/19 05:35 Additional Labs: Accuchecks 08/28/19 08/28/19 08/27/19 11:12 06:28 20:08 POC Glucose 226 H 89 277 H 08/27/19 16:55 POC Glucose 329 H Hospitalist ROS - Medication Medications: Active Medications Generic Name Dose Route Start Last Admin Trade Name Freq PRN Reason Stop Dose Admin Acetaminophen 650 mg 08/20/19 01:50 08/23/19 17:52 Tylenol PO 650 mg Q4H PRN Administration Headache/Fever/Mild Pain (1-3) Hydrocodone Bitart/Acetaminophen 1 tab 08/22/19 00:35 08/28/19 09:13 [place] 5/325 PO 1 tab Q4H PRN Administration Moderate Pain (4-6) Albuterol/Ipratropium 3 ml 08/24/19 13:00 08/28/19 06:59 Duoneb NEB 3 ml [id number] [facility] Administration Atorvastatin Calcium 40 mg 08/20/19 21:00 08/27/19 20:43 Lipitor PO 40 mg HS [facility] Administration Carvedilol 12.5 mg 08/20/19 09:00 08/28/19 09:09 Coreg PO 12.5 mg BID [facility] Administration Clopidogrel Bisulfate 75 mg 08/20/19 09:00 08/28/19 09:10 Plavix PO 75 mg DAILY [facility] Administration Epoetin Solis-epbx 10,000 unit 08/27/19 17:00 08/27/19 17:34 Retacrit IVP 10,000 unit MoWeFr [facility] Administration Escitalopram Oxalate 20 mg 08/20/19 09:00 08/28/19 09:10 Lexapro PO 20 mg DAILY [facility] Administration Famotidine 20 mg 08/25/19 09:00 08/28/19 09:10 Pepcid PO 20 mg DAILY [facility] Administration Heparin Sodium (Porcine) 500 units 08/27/19 09:00 08/28/19 09:10 Heparin Lock Flush 100 Units/Ml IVF 500 unit DAILY [facility] Administration Hydralazine HCl 25 mg 08/25/19 09:00 08/28/19 09:10 Apresoline PO 25 mg BID [facility] Administration Insulin Glargine 60 units/ 0.6 mls @ 0 mls/hr 08/25/19 21:00 08/27/19 20:44 Miscellaneous Medication SC 0.6 mls HS [facility] Administration Insulin Human Lispro 0 units 08/21/19 13:54 08/27/19 17:34 Humalog SC 8 unit .MODERATE SLIDING SC PRN Administration Moderate Correctional Scale Insulin Human Lispro 0 units 08/21/19 21:43 08/25/19 21:04 Humalog SC 5 unit .BEDTIME SLIDING SC PRN Administration Bedtime Correctional Scale Isosorbide Dinitrate 5 mg 08/27/19 21:00 08/28/19 09:11 Isordil PO 5 mg BID [facility] Administration Levothyroxine Sodium 50 mcg 08/20/19 06:00 08/28/19 05:37 Synthroid PO 50 mcg 0600 [facility] Administration Lidocaine 1 patch 08/21/19 09:00 08/28/19 09:11 Lidoderm 5% Patch TD 1 patch DAILY [facility] Administration Miscellaneous Medication 1 each 08/21/19 21:00 08/27/19 20:45 Lidocaine Patch Removal TOP Not Given 2100 [facility] Multivitamins 1 tab 08/20/19 09:00 08/28/19 09:11 Theragran PO 1 tab DAILY [facility] Administration Nitroglycerin 0.4 mg 08/20/19 02:17 08/20/19 19:45 Nitrostat SL 1 tab Q5MIN PRN Administration Chest Pain Ondansetron HCl 4 mg 08/20/19 01:50 08/21/19 04:50 Zofran Odt PO 4 mg Q6H PRN Administration Nausea/Vomiting Pregabalin 100 mg 08/20/19 09:00 08/28/19 09:11 Lyrica PO 100 mg BID [facility] Administration Sodium Chloride 10 ml 08/27/19 09:00 08/28/19 09:08 Flush - Normal Saline IVF Not Given DAILY [facility] - Exam General Appearance: awake alert Eye: PERRL, anicteric sclera ENT: no oropharyngeal lesions, moist mucosa Neck: supple, no JVD Heart: RRR, no murmur Respiratory: no wheezes, no rales Gastrointestinal: soft, non-tender, non-distended, normal bowel sounds Extremities: no cyanosis, no edema Neurological: cranial nerve grossly intact, no focal deficits Psychiatric: normal affect, A&O x 3 Hosp A/P (1) Unstable angina Status: Acute (2) CAD (coronary artery disease) Code(s): I25.10 - ATHSCL HEART DISEASE OF [place] CORONARY ARTERY W/O ANG PCTRS Status: Chronic Qualifiers: Coronary Disease-Associated Artery/Lesion type: [place] artery [place] vs. transplanted heart: [place] heart Associated angina: with stable angina Qualified Code(s): I25.118 - Atherosclerotic heart disease of [place] coronary artery with other forms of angina pectoris (3) Acute worsening of stage 3 chronic kidney disease Code(s): N18.3 - CHRONIC KIDNEY DISEASE, STAGE 3 (MODERATE) Status: Acute (4) Depression Code(s): F32.9 - MAJOR DEPRESSIVE DISORDER, SINGLE EPISODE, UNSPECIFIED Status : Chronic Qualifiers: Depression Type: major depressive disorder (5) Paroxysmal atrial fibrillation Code(s): I48.0 - PAROXYSMAL ATRIAL FIBRILLATION Status: Chronic (6) Anemia, normocytic normochromic Code(s): D64.9 - ANEMIA, UNSPECIFIED Status: Chronic (7) COPD (chronic obstructive pulmonary disease) Status: Chronic Qualifiers: COPD type: chronic bronchitis (8) Chronic kidney disease, stage 3 Code(s): N18.3 - CHRONIC KIDNEY DISEASE, STAGE 3 (MODERATE) Status: Chronic (9) Chronic stage c diastolic heart failure Code(s): I50.32 - CHRONIC DIASTOLIC (CONGESTIVE) HEART FAILURE Status: Chronic (10) DM type 2 (diabetes mellitus, type 2) Status: Chronic Qualifiers: Diabetes mellitus fdc insulin use: with fdc use Diabetes mellitus complication status: with kidney complications Diabetes mellitus complication detail: with chronic kidney disease Chronic kidney disease stage : stage 3 (moderate) Qualified Code(s): E11.22 - Type 2 diabetes mellitus with diabetic chronic kidney disease; N18.3 - Chronic kidney disease, stage 3 ( moderate); Z79.4 - half-way (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 of insulin (11) Dyslipidemia Code(s): E78.5 - HYPERLIPIDEMIA, UNSPECIFIED Status: Chronic (12) HTN (hypertension) Code(s): I10 - ESSENTIAL (PRIMARY) HYPERTENSION Status: Chronic Qualifiers: Hypertension type: essential hypertension Qualified Code(s): I10 - Essential (primary) hypertension (13) Obesity (BMI 30.0-34.9) Code(s): E66.9 - OBESITY, UNSPECIFIED Status: Chronic - Plan started on HD this admission on 08/26/2019, awaiting HD chair. s/p stent to LAD and RCA. is on asp, plavix, lipitor, coreg, synthorid. duonebs q6h, i.spirometry. Counselled her to ambulate more. hemostable echo showed a ef of 45% with apical/anteroseptal hypokinesis, also had rvsp of 52 cpap/outpt sleep study To ambulate in hallway as tolerated, tx to med floor will likely need placement if she didnt ambulate much, outpt HD chair pending.
[2019-08-28] MEDS: HumaLOG 300 UNITS/3 ML VIAL SC PRN ×3 (12:55→20:44)
--- NOTE | 2019-08-28 14:15 | EKG ---
Test Reason : Blood Pressure : / mmHG Vent. Rate : 061 BPM Atrial Rate : 061 BPM P-R Int : 220 ms QRS Dur : 128 ms QT Int : 468 ms P-R-T Axes : 053 071 159 degrees QTc Int : 471 ms Sinus rhythm with 1st degree A-V block Non-specific intra-ventricular conduction block Cannot rule out Anteroseptal infarct , age undetermined T wave abnormality, consider lateral ischemia Abnormal ECG Confirmed by JOHAN KRUSE ([id number]), video effects editor JANELL THORNE ([id number]) on 08/28/2019 2:15:40 PM Referred By: Confirmed By:JOHAN Ramírez
[2019-08-28] MEDS ORDERED: CEFAZOLIN 2 GM in Premix Bag 1 BAG IVPB SCH (18:30)
--- NOTE | 2019-08-28 18:33 | PDOC.CPN ---
- Subjective Date: 08/28/19 Time: 18:31 Interval history: She is feeling much better. She states this is the best she has felt in the last few yrs. Even after her initial stents she did not feel this good. - Review of Systems General: denies: fever/chills, weight/appetite/sleep changes, night sweats, fatigue Respiratory: denies: cough, congestion, shortness of breath, exercise intolerance Cardiovascular: denies: chest pain, palpitation, edema, paroxysmal nocturnal dyspnea, orthopnea Gastrointestinal: denies: nausea, vomiting, diarrhea, constipation, abd pain, GI bleeding Musculoskeletal: denies: pain, tenderness, stiffness, swelling, arthritis/ arthralgias Neurological: denies: numbness, syncope, seizure, weakness - Objective Allergies/Adverse Reactions: Allergies Allergy/AdvReac Type Severity Reaction Status Date / Time latex Allergy Verified 01/24/19 22:40 meperidine [From Demerol] Allergy Verified 01/24/19 22:40 morphine Allergy Verified 01/24/19 22:40 aspirin AdvReac Verified 04/27/19 01:49 Visit Medications: Current Medications Acetaminophen (Tylenol) 650 mg PO Q4H PRN PRN Reason: Headache/Fever/Mild Pain (1-3) Last Admin: 08/23/19 17:52 Dose: 650 mg Hydrocodone Bitart/Acetaminophen ([place] 5/325) 1 tab PO Q4H PRN PRN Reason: Moderate Pain (4-6) Last Admin: 08/28/19 09:13 Dose: 1 tab Albuterol/Ipratropium (Duoneb) 3 ml NEB [id number] [facility] Last Admin: 08/28/19 12:56 Dose: 3 ml Atorvastatin Calcium (Lipitor) 40 mg PO HS [facility] Last Admin: 08/27/19 20:43 Dose: 40 mg Carvedilol (Coreg) 12.5 mg PO BID [facility] Last Admin: 08/28/19 09:09 Dose: 12.5 mg Clopidogrel Bisulfate (Plavix) 75 mg PO DAILY [facility] Last Admin: 08/28/19 09:10 Dose: 75 mg Dextrose/Water (Dextrose 50%) 25 gm SLOW IVP PRN PRN PRN Reason: Hypoglycemia Epoetin Solis-epbx (Retacrit) 10,000 unit IVP MoWeFr [facility] Last Admin: 08/27/19 17:34 Dose: 10,000 unit Escitalopram Oxalate (Lexapro) 20 mg PO DAILY [facility] Last Admin: 08/28/19 09:10 Dose: 20 mg Famotidine (Pepcid) 20 mg PO DAILY [facility] Last Admin: 08/28/19 09:10 Dose: 20 mg Fluticasone Propionate (Flonase Nasal [place]) 0 gm NASAL DAILYPRN PRN PRN Reason: nasal stuffiness Glucagon (Glucagon) 1 mg IM PRN PRN PRN Reason: Hypoglycemia Heparin Sodium (Porcine) (Heparin Lock Flush 100 Units/Ml) 500 units IVF DAILY [facility] Last Admin: 08/28/19 09:10 Dose: 500 unit Hydralazine HCl (Apresoline) 25 mg PO BID [facility] Last Admin: 08/28/19 09:10 Dose: 25 mg Dextrose/Water (D5w) 1,000 mls @ 0 mls/hr IV .Q0M PRN PRN Reason: Hypoglycemia Insulin Glargine 60 units/ (Miscellaneous Medication) 0.6 mls @ 0 mls/hr SC HS [facility] Last Admin: 08/27/19 20:44 Dose: 0.6 mls Ceftriaxone Sodium 1 gm/ (Sodium Chloride) 100 mls @ 200 mls/hr IVPB 1200 [facility] Cefazolin Sodium/Dextrose 2 gm (/ Device) 50 mls @ 100 mls/hr IVPB ONCALL-OR [facility] Insulin Human Lispro (Humalog) 0 units SC .MODERATE SLIDING SC PRN PRN Reason: Moderate Correctional Scale Last Admin: 08/28/19 17:19 Dose: 2 unit Insulin Human Lispro (Humalog) 0 units SC .BEDTIME SLIDING SC PRN PRN Reason: Bedtime Correctional Scale Last Admin: 08/25/19 21:04 Dose: 5 unit Isosorbide Dinitrate (Isordil) 5 mg PO BID [facility] Last Admin: 08/28/19 09:11 Dose: 5 mg Levothyroxine Sodium (Synthroid) 50 mcg PO 0600 [facility] Last Admin: 08/28/19 05:37 Dose: 50 mcg Lidocaine (Lidoderm 5% Patch) 1 patch TD DAILY [facility] Last Admin: 08/28/19 09:11 Dose: 1 patch Miscellaneous Medication (Lidocaine Patch Removal) 1 each TOP 2100 [facility] Last Admin: 08/27/19 20:45 Dose: Not Given Multivitamins (Theragran) 1 tab PO DAILY [facility] Last Admin: 08/28/19 09:11 Dose: 1 tab Nitroglycerin (Nitrostat) 0.4 mg SL Q5MIN PRN PRN Reason: Chest Pain Last Admin: 08/20/19 19:45 Dose: 1 tab Read Ppd Test Site 0 each PO 1999 [facility] Stop: 08/28/19 22:00 Read Ppd Test Site 0 each PO 1999 [facility] Stop: 08/29/19 22:00 Ondansetron HCl (Zofran Odt) 4 mg PO Q6H PRN PRN Reason: Nausea/Vomiting Last Admin: 08/21/19 04:50 Dose: 4 mg Pregabalin (Lyrica) 100 mg PO BID [facility] Last Admin: 08/28/19 09:11 Dose: 100 mg Sodium Chloride (Flush - Normal Saline) 10 ml IVF DAILY [facility] Last Admin: 08/28/19 09:08 Dose: Not Given Vital Signs & Weight: Vital Signs Temp Pulse Pulse Pulse Resp BP BP 08/28/19 14:30 97.6 F 87 16 08/28/19 12:56 87 16 08/28/19 11:15 99.1 F 85 14 08/28/19 09:37 101 H 95 164/73 H 134/72 08/28/19 07:08 97.5 F L 89 16 08/28/19 07:01 08/28/19 06:59 89 20 BP Pulse Ox Pulse Ox Pulse Ox 08/28/19 14:30 142/73 H 95 08/28/19 12:56 94 L 08/28/19 11:15 124/58 L 94 L 08/28/19 09:37 92 L 92 L 08/28/19 07:08 128/71 98 08/28/19 07:01 95 08/28/19 06:59 95 Admit Weight 211 lb 8 oz Weight 228 lb 12.8 oz - Physical Exam General: alert & oriented x3 HEENT: mucus membranes moist Neck: supple neck Cardiac: regular rate and rhythm Lungs: clear to auscultation Neuro: grossly intact Abdomen: active bowel sounds Extremities: no edema Skin: clear Musculoskeletal: normal range of motion - Labs Result Diagrams: 08/24/19 03:56 08/28/19 05:35 Troponin/CKMB CK-MB (CK-2) 1.0 ng/mL (0-6.6) 08/20/19 23:06 Troponin I 0.134 ng/mL (< 0.028) H 08/20/19 23:06 - Assessment/Plan Assessment/Plan: 1. Unstable angina. 2. CAD 3. Paroxysmal afib 4. CKD, Stage 5 5. Acute on chronic systolic heart failure, improved. 6. Ischemic CM EF at 35-40% PLAN: - S/P POOJA of LAD and RCA on top of old BMS. - Significant improvement in symptoms with HD. High likelyhood that her symptoms in the past had been related to Uremia to some extent as she states she feels so much better than she has in a very long time. - Likely will need buttermaker dialysis as she has had a very low GFR for many yrs now. - CV stable. - Disposition per nephrology. May discharge any time from cardiac perspective.
--- NOTE | 2019-08-28 18:42 | PRG ---
DATE OF SERVICE: 08/28/2019 SUBJECTIVE: Ms. Mendez was seen today at the request of Nephrology, Dr. Pretty. PLAN: Plan is to place hemodialysis catheter, central line, right arm fistula. Left cephalic veins are nonvisualized probably due to thrombus, iatrogenic. If her veins are inadequate, graft will not be placed as there is some chance for renal recovery. She will need eventual long-term dialysis, however. The patient understands risks, benefits, and consents. Job ID: [id number]
[2019-08-28] MEDS ORDERED: READ PPD TEST SITE PO SCH (20:00)
[2019-08-28] MEDS: Atorvastatin Calcium 40 MG TAB PO SCH (20:42)
[2019-08-28] MEDS: Insulin Glargine 60 UNITS in Pre-Filled Syringe 1 EACH SC SCH (20:44)
[2019-08-28] MEDS: Lidocaine Patch Removal 1 EACH TOP SCH (20:59)
[2019-08-29] MEDS: Levothyroxine Sodium 50 MCG TAB PO SCH (05:29)
[2019-08-29] MEDS: Carvedilol 6.25 MG TAB PO SCH ×2 (05:29→20:49)
[2019-08-29] MEDS: Lidocaine 5% Patch TD SCH (09:00)
[2019-08-29] MEDS: Escitalopram Oxalate 20 mg Tablet PO SCH (09:46)
[2019-08-29] MEDS: Clopidogrel Bisulfate 75 MG TAB PO SCH (09:46)
[2019-08-29] MEDS: Famotidine 20 MG TAB PO SCH (09:46)
[2019-08-29] MEDS: Multivit, Therapeutic 1 TAB PO SCH (09:47)
[2019-08-29] MEDS: Pregabalin 50 MG CAP PO SCH ×2 (09:47→20:49)
[2019-08-29] MEDS: hydrALAZINE 25 MG TAB PO SCH ×2 (09:47→20:50)
[2019-08-29] MEDS: Isosorbide Dinitrate 5 MG TAB PO SCH ×2 (09:47→20:50)
[2019-08-29] MEDS ORDERED: PROPOFOL 200 MG/20 ML VIAL ONE (09:49)
[2019-08-29] MEDS ORDERED: Bupivacaine HCl 0.5%/Epinephrine 1:200,000/PF 30 ml Vial ONE (09:49)
[2019-08-29] MEDS ORDERED: Heparin 10,000 UNITS/ 10 ML VIAL ONE (10:37)
[2019-08-29] MEDS ORDERED: Dextrose 50% Abboject 50 ML SYRINGE ONE (11:36)
--- NOTE | 2019-08-29 12:27 | PRG ---
DATE OF SERVICE: 08/29/2019 SUBJECTIVE: Patient was seen and examined at bedside and overnight events noted. Patient denies any shortness of breath or chest pain or palpitation. No history of nausea or vomiting or diarrhea or fever or chills or cramps. OBJECTIVE: GENERAL: This is a well-built female, in no apparent distress. VITAL SIGNS: Temperature 97.6. Heart rate 81. Respiratory rate 16. Blood pressure 155/81. HEENT: Atraumatic, normocephalic. Oral mucosa is moist. NECK: Supple. CARDIOVASCULAR: S1, S2 heard. Rate and rhythm regular. RESPIRATORY: Clear to auscultation. GASTROINTESTINAL: Abdomen is soft. MUSCULOSKELETAL: No tenderness. No edema. DERMATOLOGIC: No skin rash. NEUROLOGIC: Alert and awake and oriented x3. No focal neurologic deficits. Moving all the extremities. PSYCHIATRIC: Mood and affect normal. LABORATORY DATA: Not done today. ASSESSMENT AND PLAN: 1. End-stage renal disease. Continue on dialysis as tolerated. 2. Edema. Remove fluid. 3. Fluid overload. 4. Acidosis. 5. Hyperkalemia. 6. Obesity. 7. Anemia of chronic disease. Plan to continue on dialysis as tolerated. Job ID: [id number]
[2019-08-29] MEDS ORDERED: cefTRIAXone\\ROCEPHIN 1 GM VIAL ONE (12:43)
[2019-08-29] MEDS ORDERED: Sodium Chloride 0.9% 100 ML ONE (12:43)
--- NOTE | 2019-08-29 14:27 | PDOC.HOSPP ---
- Subjective Subjective: Going for HD access today in [place]. No acute complaints. - Objective Vital Signs & Weight: Vital Signs (12 hours) Temp Pulse Resp BP BP Pulse Ox 08/29/19 09:47 81 08/29/19 07:00 94 L 08/29/19 06:44 81 16 94 L 08/29/19 05:29 155/81 H 08/29/19 03:58 97.6 F 81 20 155/81 H 94 L Weight Admit Weight 211 lb 8 oz Weight 230 lb 3.2 oz I&O: 08/28/19 08/29/19 08/30/19 06:59 06:59 06:59 Intake Total 1020 710 Output Total 3000 1350 Balance -1979 -640 Result Diagrams: 08/24/19 03:56 08/28/19 05:35 Additional Labs: Accuchecks 08/29/19 08/29/19 08/29/19 11:37 03:59 02:46 POC Glucose 66 L 140 H 73 08/29/19 08/28/19 08/28/19 00:40 19:18 16:52 POC Glucose 83 241 H 190 H Radiology Reviewed by me: Yes Hospitalist ROS - Review of Systems All other systems reviewed; all pertinent +/- noted in HPI/Subj - Medication Medications: Active Medications Generic Name Dose Route Start Last Admin Trade Name Freq PRN Reason Stop Dose Admin Acetaminophen 650 mg 08/20/19 01:50 08/23/19 17:52 Tylenol PO 650 mg Q4H PRN Administration Headache/Fever/Mild Pain (1-3) Hydrocodone Bitart/Acetaminophen 1 tab 08/22/19 00:35 08/28/19 09:13 [place] 5/325 PO 1 tab Q4H PRN Administration Moderate Pain (4-6) Albuterol/Ipratropium 3 ml 08/24/19 13:00 08/29/19 14:03 Duoneb NEB Not Given [id number] [facility] Atorvastatin Calcium 40 mg 08/20/19 21:00 08/28/19 20:42 Lipitor PO 40 mg HS [facility] Administration Carvedilol 12.5 mg 08/20/19 09:00 08/29/19 05:29 Coreg PO 12.5 mg BID [facility] Administration Clopidogrel Bisulfate 75 mg 08/20/19 09:00 08/29/19 09:46 Plavix PO Not Given DAILY [facility] Dextrose/Water 25 gm 08/20/19 02:16 08/29/19 03:01 Dextrose 50% SLOW IVP 25 gm PRN PRN Administration Hypoglycemia Epoetin Solis-epbx 10,000 unit 08/27/19 17:00 08/27/19 17:34 Retacrit IVP 10,000 unit MoWeFr [facility] Administration Escitalopram Oxalate 20 mg 08/20/19 09:00 08/29/19 09:46 Lexapro PO Not Given DAILY [facility] Famotidine 20 mg 08/25/19 09:00 08/29/19 09:46 Pepcid PO Not Given DAILY [facility] Heparin Sodium (Porcine) 500 units 08/27/19 09:00 08/29/19 09:46 Heparin Lock Flush 100 Units/Ml IVF Not Given DAILY [facility] Hydralazine HCl 25 mg 08/25/19 09:00 08/29/19 09:47 Apresoline PO Not Given BID [facility] Insulin Glargine 60 units/ 0.6 mls @ 0 mls/hr 08/25/19 21:00 08/28/19 20:44 Miscellaneous Medication SC 0.6 mls HS [facility] Administration Insulin Human Lispro 0 units 08/21/19 13:54 08/28/19 17:19 Humalog SC 2 unit .MODERATE SLIDING SC PRN Administration Moderate Correctional Scale Insulin Human Lispro 0 units 08/21/19 21:43 08/28/19 20:44 Humalog SC 2 unit .BEDTIME SLIDING SC PRN Administration Bedtime Correctional Scale Isosorbide Dinitrate 5 mg 08/27/19 21:00 08/29/19 09:47 Isordil PO Not Given BID [facility] Levothyroxine Sodium 50 mcg 08/20/19 06:00 08/29/19 05:29 Synthroid PO 50 mcg 0600 [facility] Administration Lidocaine 1 patch 08/21/19 09:00 08/28/19 09:11 Lidoderm 5% Patch TD 1 patch DAILY [facility] Administration Miscellaneous Medication 1 each 08/21/19 21:00 08/28/19 20:59 Lidocaine Patch Removal TOP Not Given 2100 [facility] Multivitamins 1 tab 08/20/19 09:00 08/29/19 09:47 Theragran PO Not Given DAILY [facility] Nitroglycerin 0.4 mg 08/20/19 02:17 08/20/19 19:45 Nitrostat SL 1 tab Q5MIN PRN Administration Chest Pain Ondansetron HCl 4 mg 08/20/19 01:50 08/21/19 04:50 Zofran Odt PO 4 mg Q6H PRN Administration Nausea/Vomiting Pregabalin 100 mg 08/20/19 09:00 08/29/19 09:47 Lyrica PO Not Given BID [facility] Sodium Chloride 10 ml 08/27/19 09:00 08/29/19 09:47 Flush - Normal Saline IVF Not Given DAILY [facility] - Exam General Appearance: NAD, awake alert Eye: anicteric sclera ENT: normocephalic atraumatic, moist mucosa Neck: supple, symmetric Heart: no murmur, no gallops, no rubs Respiratory: CTAB, no wheezes, no rales, no ronchi Gastrointestinal: soft, non-tender, no guarding, no rigidity Extremities: no edema Skin: no lesions, no rashes Neurological: cranial nerve grossly intact. negative: vision deficit Musculoskeletal: generalized weakness Psychiatric: normal behavior Hosp A/P (1) NSTEMI (non-ST elevated myocardial infarction) Code(s): I21.4 - NON-ST ELEVATION (NSTEMI) MYOCARDIAL INFARCTION Status: Acute (2) Afib Code(s): I48.91 - UNSPECIFIED ATRIAL FIBRILLATION Status: Chronic (3) Depression Code(s): F32.9 - MAJOR DEPRESSIVE DISORDER, SINGLE EPISODE, UNSPECIFIED Status : Chronic Qualifiers: Depression Type: major depressive disorder (4) PATRICA (acute kidney injury) Code(s): N17.9 - ACUTE KIDNEY FAILURE, UNSPECIFIED Status: Acute (5) Acute worsening of stage 3 chronic kidney disease Code(s): N18.3 - CHRONIC KIDNEY DISEASE, STAGE 3 (MODERATE) Status: Acute (6) Atrial fibrillation with RVR Code(s): I48.91 - UNSPECIFIED ATRIAL FIBRILLATION Status: Acute (7) Diabetes mellitus Code(s): E11.9 - TYPE 2 DIABETES MELLITUS WITHOUT COMPLICATIONS Status: Acute (8) Gait instability Code(s): R26.81 - UNSTEADINESS ON FEET Status: Acute (9) Mitral regurgitation Status: Acute (10) Orthostatic hypotension Code(s): I95.1 - ORTHOSTATIC HYPOTENSION Status: Acute (11) Orthostatic syncope Code(s): I95.1 - ORTHOSTATIC HYPOTENSION Status: Acute (12) Unstable angina Status: Acute (13) CAD (coronary artery disease) Code(s): I25.10 - ATHSCL HEART DISEASE OF [place] CORONARY ARTERY W/O ANG PCTRS Status: Chronic Qualifiers: Coronary Disease-Associated Artery/Lesion type: [place] artery [place] vs. transplanted heart: [place] heart Associated angina: with stable angina Qualified Code(s): I25.118 - Atherosclerotic heart disease of [place] coronary artery with other forms of angina pectoris (14) COPD (chronic obstructive pulmonary disease) Status: Chronic Qualifiers: COPD type: chronic bronchitis (15) Chronic kidney disease, stage 3 Code(s): N18.3 - CHRONIC KIDNEY DISEASE, STAGE 3 (MODERATE) Status: Chronic (16) Chronic stage c diastolic heart failure Code(s): I50.32 - CHRONIC DIASTOLIC (CONGESTIVE) HEART FAILURE Status: Chronic (17) DM type 2 (diabetes mellitus, type 2) Status: Chronic Qualifiers: 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: with intermodal truck driver use Diabetes mellitus complication status: with kidney complications Diabetes mellitus complication detail: with chronic kidney disease Chronic kidney disease stage : stage 3 (moderate) Qualified Code(s): E11.22 - Type 2 diabetes mellitus with diabetic chronic kidney disease; N18.3 - Chronic kidney disease, stage 3 ( moderate); Z79.4 - 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 treater 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 (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 of insulin (18) Dyslipidemia Code(s): E78.5 - HYPERLIPIDEMIA, UNSPECIFIED Status: Chronic (19) HTN (hypertension) Code(s): I10 - ESSENTIAL (PRIMARY) HYPERTENSION Status: Chronic Qualifiers: Hypertension type: essential hypertension Qualified Code(s): I10 - Essential (primary) hypertension (20) Ischemic cardiomyopathy Code(s): I25.5 - ISCHEMIC CARDIOMYOPATHY Status: Chronic (21) Obesity (BMI 30.0-34.9) Code(s): E66.9 - OBESITY, UNSPECIFIED Status: Chronic (22) Paroxysmal atrial fibrillation Code(s): I48.0 - PAROXYSMAL ATRIAL FIBRILLATION Status: Chronic (23) Pulmonary HTN Code(s): I27.20 - PULMONARY HYPERTENSION, UNSPECIFIED Status: Chronic (24) Chest pain Code(s): R07.9 - CHEST PAIN, UNSPECIFIED Status: Inactive Qualifiers: Ischemic chest pain type: unspecified angina pectoris type - Plan Plan: medical unit surgery consultation, recommendations appreciated nephrology consultation, recommendations appreciated going for HD vascular access on 08/29 hemodialysis scheduled per nephrology replace electrolytes as needed blood pressure control cardiomyopathy regimen continue other home medications as able blood sugar control G.I. prophylaxis DVT prophylaxis disposition: will need outpatient hemodialysis chair prior to discharge
--- NOTE | 2019-08-29 14:55 | PDOC.CPN ---
- Subjective Date: 08/29/19 Time: 14:55 - Objective Allergies/Adverse Reactions: Allergies Allergy/AdvReac Type Severity Reaction Status Date / Time latex Allergy Verified 01/24/19 22:40 meperidine [From Demerol] Allergy Verified 01/24/19 22:40 morphine Allergy Verified 01/24/19 22:40 aspirin AdvReac Verified 04/27/19 01:49 Visit Medications: Current Medications Acetaminophen (Tylenol) 650 mg PO Q4H PRN PRN Reason: Headache/Fever/Mild Pain (1-3) Last Admin: 08/23/19 17:52 Dose: 650 mg Hydrocodone Bitart/Acetaminophen ([place] 5/325) 1 tab PO Q4H PRN PRN Reason: Moderate Pain (4-6) Last Admin: 08/28/19 09:13 Dose: 1 tab Albuterol/Ipratropium (Duoneb) 3 ml NEB [id number] COUNTS INCLUDE 234 BEDS AT [facility] Last Admin: 08/29/19 14:03 Dose: Not Given Atorvastatin Calcium (Lipitor) 40 mg PO HS [facility]S INCLUDE 234 BEDS AT [facility] Last Admin: 08/28/19 20:42 Dose: 40 mg Carvedilol (Coreg) 12.5 mg PO BID [facility]CLUDE 234 BEDS AT [facility] Last Admin: 08/29/19 05:29 Dose: 12.5 mg Clopidogrel Bisulfate (Plavix) 75 mg PO DAILY [facility]CLUDE 234 BEDS AT [facility] Last Admin: 08/29/19 09:46 Dose: Not Given Dextrose/Water (Dextrose 50%) 25 gm SLOW IVP PRN PRN PRN Reason: Hypoglycemia Last Admin: 08/29/19 03:01 Dose: 25 gm Epoetin Solis-epbx (Retacrit) 10,000 unit IVP MoWeFr COUNTS INCLUDE 234 BEDS AT [facility] Last Admin: 08/27/19 17:34 Dose: 10,000 unit Escitalopram Oxalate (Lexapro) 20 mg PO DAILY [facility]CLUDE 234 BEDS [facility] Last Admin: 08/29/19 09:46 Dose: Not Given Famotidine (Pepcid) 20 mg PO DAILY [facility]CLUDE 234 BEDS [facility] Last Admin: 08/29/19 09:46 Dose: Not Given Fluticasone Propionate (Flonase Nasal [place]) 0 gm NASAL DAILYPRN PRN PRN Reason: nasal stuffiness Glucagon (Glucagon) 1 mg IM PRN PRN PRN Reason: Hypoglycemia Heparin Sodium (Porcine) (Heparin Lock Flush 100 Units/Ml) 500 units IVF DAILY [facility]CLUDE 234 BEDS [facility] Last Admin: 08/29/19 09:46 Dose: Not Given Hydralazine HCl (Apresoline) 25 mg PO BID [facility]CLUDE 234 BEDS [facility] Last Admin: 08/29/19 09:47 Dose: Not Given Dextrose/Water (D5w) 1,000 mls @ 0 mls/hr IV .Q0M PRN PRN Reason: Hypoglycemia Insulin Glargine 60 units/ (Miscellaneous Medication) 0.6 mls @ 0 mls/hr SC HS [facility]S INCLUDE 234 BEDS AT [facility] Last Admin: 08/28/19 20:44 Dose: 0.6 mls Ceftriaxone Sodium 1 gm/ (Sodium Chloride) 100 mls @ 200 mls/hr IVPB 1200 [facility] Cefazolin Sodium/Dextrose 2 gm (/ Device) 50 mls @ 100 mls/hr IVPB ONCALL-OR COUNTS INCLUDE 234 BEDS AT [facility] Stop: 08/29/19 18:31 Insulin Human Lispro (Humalog) 0 units SC .MODERATE SLIDING SC PRN PRN Reason: Moderate Correctional Scale Last Admin: 08/28/19 17:19 Dose: 2 unit Insulin Human Lispro (Humalog) 0 units SC .BEDTIME SLIDING SC PRN PRN Reason: Bedtime Correctional Scale Last Admin: 08/28/19 20:44 Dose: 2 unit Isosorbide Dinitrate (Isordil) 5 mg PO BID [facility]CLUDE 234 BEDS AT [facility] Last Admin: 08/29/19 09:47 Dose: Not Given Levothyroxine Sodium (Synthroid) 50 mcg PO 0600 [facility]CLUDE 234 BEDS AT [facility] Last Admin: 08/29/19 05:29 Dose: 50 mcg Lidocaine (Lidoderm 5% Patch) 1 patch TD DAILY [facility]CLUDE 234 BEDS AT [facility] Last Admin: 08/28/19 09:11 Dose: 1 patch Miscellaneous Medication (Lidocaine Patch Removal) 1 each TOP 2100 [facility]S INCLUDE 234 BEDS AT [facility] Last Admin: 08/28/19 20:59 Dose: Not Given Multivitamins (Theragran) 1 tab PO DAILY [facility]CLUDE 234 BEDS AT [facility] Last Admin: 08/29/19 09:47 Dose: Not Given Nitroglycerin (Nitrostat) 0.4 mg SL Q5MIN PRN PRN Reason: Chest Pain Last Admin: 08/20/19 19:45 Dose: 1 tab Read Ppd Test Site 0 each PO 2000 [facility]S INCLUDE 234 BEDS AT [facility] Stop: 08/29/19 22:00 Ondansetron HCl (Zofran Odt) 4 mg PO Q6H PRN PRN Reason: Nausea/Vomiting Last Admin: 08/21/19 04:50 Dose: 4 mg Pregabalin (Lyrica) 100 mg PO BID [facility] INCLUDE 234 BEDS AT [facility] Last Admin: 08/29/19 09:47 Dose: Not Given Sodium Chloride (Flush - Normal Saline) 10 ml IVF DAILY [facility] INCLUDE 234 BEDS AT [facility] Last Admin: 08/29/19 09:47 Dose: Not Given Vital Signs & Weight: Vital Signs Temp Pulse Resp BP BP Pulse Ox 08/29/19 09:47 81 08/29/19 07:00 94 L 08/29/19 06:44 81 16 94 L 08/29/19 05:29 155/81 H 08/29/19 03:58 97.6 F 81 20 155/81 H 94 L Admit Weight 211 lb 8 oz Weight 230 lb 3.2 oz - Labs Result Diagrams: 08/24/19 03:56 08/28/19 05:35 Troponin/CKMB CK-MB (CK-2) 1.0 ng/mL (0-6.6) 08/20/19 23:06 Troponin I 0.134 ng/mL (< 0.028) H 08/20/19 23:06
[2019-08-29] MEDS ORDERED: Albuterol Sulfate 2.5 mg/3 ml Neb ONE (15:17)
[2019-08-29] MEDS ORDERED: Fentanyl 100 MCG/2 ML VIAL ONE (15:18)
[2019-08-29] MEDS ORDERED: Heparin 10,000 UNITS/1 ML VIAL ONE (15:22)
[2019-08-29] MEDS ORDERED: Lidocaine 2% PF 5 ML VIAL ONE (15:22)
[2019-08-29] MEDS ORDERED: Sodium Chloride 0.9% 10 ML ONE ×2 (15:22→15:49)
[2019-08-29] MEDS ORDERED: Protamine Sulfate 50 MG/5 ML VIAL ONE (15:22)
[2019-08-29] MEDS ORDERED: Heparin 5,000 UNITS/ML VIAL ONE (15:22)
[2019-08-29] MEDS ORDERED: Bupivacaine PF 0.5% 30 ML VIAL ONE ×2 (15:22)
[2019-08-29] MEDS ORDERED: Lidocaine 1% w/Epinephrine 1:100K 20 ML VIAL ONE (15:22)
[2019-08-29] MEDS ORDERED: Ondansetron HCl/PF 4 MG/2 ML Vial IVP PRN (17:44)
[2019-08-29] MEDS ORDERED: Promethazine HCl 25 MG/ML VIAL SLOW IVP PRN (17:44)
[2019-08-29] MEDS ORDERED: Promethazine HCl 25 MG/ML VIAL IM PRN (17:44)
[2019-08-29] MEDS ORDERED: Acetaminophen 500 MG TAB PO PRN (17:47)
--- NOTE | 2019-08-29 18:20 | RAD ---
Chest one view HISTORY: Central line placement. COMPARISON: 08/25/2019. FINDINGS: Cardiac silhouette is magnified and enlarged. Pulmonary vasculature remains slightly engorg ed. Mediastinum is midline. Large caliber dual lumen dialysis type catheter at the right internal jugular entrance projects over the superior vena cava. Left subclavian central venous catheter tip pr ojects over the superior vena cava. No evidence of pneumothorax. IMPRESSION: Right internal jugular and left subclavian central venous catheters are in good radiograp hic position. Cardiomegaly with mild pulmonary vascular congestion.
[2019-08-29] MEDS: cefTRIAXone\\ROCEPHIN 1 GM in Sodium Chloride 0.9% 100 ML IVPB SCH (18:45)
[2019-08-29] MEDS ORDERED: READ PPD TEST SITE PO SCH (20:00)
[2019-08-29] MEDS ORDERED: EPOETIN ALFA-EPBX (ESRD) 10,000 UNIT/ML VIAL IVP SCH (20:15)
[2019-08-29] MEDS: Atorvastatin Calcium 40 MG TAB PO SCH (20:50)
[2019-08-29] MEDS: Insulin Glargine 60 UNITS in Pre-Filled Syringe 1 EACH SC SCH (20:50)
[2019-08-29] MEDS: Lidocaine Patch Removal 1 EACH TOP SCH (20:52)
[2019-08-29] MEDS: EPOETIN ALFA-EPBX (ESRD) 10,000 UNIT/ML VIAL IVP SCH (23:02)
[2019-08-30] MEDS: HYDROcodone/Acetaminophen 5/325 mg Tablet PO PRN ×3 (05:35→21:05)
[2019-08-30] MEDS: Levothyroxine Sodium 50 MCG TAB PO SCH (05:36)
[2019-08-30 06:32] LABS: Anion Gap 12 mmol/L (10-20); BUN (Urea Nitrogen) 37 mg/dL (9.8-20.1); Calc. Creatinine Clearance 61 mL/min (70-130); Carbon Dioxide 29 mmol/L (23-31); Chloride 101 mmol/L (98-107); Estimated GFR-MDRD 35; Glucose 148 mg/dL (80-115); Potassium 4.4 mmol/L (3.5-5.1); Sodium 138 mmol/L (136-145)
[2019-08-30] MEDS: Famotidine 20 MG TAB PO SCH (09:07)
[2019-08-30] MEDS: Pregabalin 50 MG CAP PO SCH ×2 (09:07→21:04)
[2019-08-30] MEDS: Isosorbide Dinitrate 5 MG TAB PO SCH ×2 (09:08→21:04)
[2019-08-30] MEDS: Clopidogrel Bisulfate 75 MG TAB PO SCH (09:08)
[2019-08-30] MEDS: Multivit, Therapeutic 1 TAB PO SCH (09:09)
[2019-08-30] MEDS: Escitalopram Oxalate 20 mg Tablet PO SCH (09:09)
[2019-08-30] MEDS: Lidocaine 5% Patch TD SCH (09:09)
[2019-08-30] MEDS: Carvedilol 6.25 MG TAB PO SCH ×2 (09:09→21:03)
[2019-08-30] MEDS: hydrALAZINE 25 MG TAB PO SCH ×2 (11:26→21:04)
--- NOTE | 2019-08-30 11:56 | PRG ---
DATE OF SERVICE: 08/30/2019 SUBJECTIVE: Patient was seen and examined at bedside and overnight events noted. Patient denies any shortness of breath or chest pain or palpitation. No history of nausea or vomiting or diarrhea or fever or chills or cramps. OBJECTIVE: GENERAL: This is a well-built female, in no apparent distress. VITAL SIGNS: Temperature 98.3. Heart rate 81. Respiratory rate 20. Blood pressure 106/53. HEENT: Atraumatic, normocephalic. Oral mucosa is moist. NECK: Supple. CARDIOVASCULAR: S1, S2 heard. Rate and rhythm regular. RESPIRATORY: Clear to auscultation. GASTROINTESTINAL: Abdomen is soft. MUSCULOSKELETAL: No tenderness. No edema. DERMATOLOGIC: No skin rash. NEUROLOGIC: Alert and awake and oriented x3. No focal neurologic deficits. Moving all the extremities. PSYCHIATRIC: Mood and affect normal. LABORATORY DATA: Potassium 4.4, BUN is 37, and creatinine is 1.5. ASSESSMENT AND PLAN: 1. End-stage renal disease. We will continue on dialysis as tolerated. We will continue dialysis on Sunday, Sunday, and Sunday. 2. Access placed yesterday. 3. Edema. Remove fluid. 4. Fluid overload. 5. Acidosis. 6. Hyperkalemia, better. 7. Anemia of chronic disease. Continue dialysis on Sunday, Sunday, and Sunday. Follow with Case Management for outpatient placement. Job ID: [id number]
[2019-08-30] MEDS: cefTRIAXone\\ROCEPHIN 1 GM in Sodium Chloride 0.9% 100 ML IVPB SCH (12:17)
--- NOTE | 2019-08-30 16:35 | PDOC.HOSPP ---
- Subjective Subjective: Clinically the patient is doing well. She is breathing comfortably on room air. She does not feel short of breath, she is currently on a breathing treatment. Patient tells me that she is still making the little bit of urine. Time was given for questions about dialysis and dialysis catheters, all questions answered in detail. - Objective Vital Signs & Weight: Vital Signs (12 hours) Temp Pulse Resp BP BP Pulse Ox 08/30/19 16:03 98.5 F 94 20 150/81 H 96 08/30/19 13:32 89 18 97 08/30/19 11:26 81 08/30/19 11:21 98.3 F 81 20 106/53 L 93 L 08/30/19 09:09 113/62 08/30/19 08:00 93 L 08/30/19 07:50 97.7 F 84 20 113/62 93 L 08/30/19 06:53 89 16 96 08/30/19 05:48 98.6 F 93 18 118/70 92 L Weight Admit Weight 211 lb 8 oz Weight 218 lb 7.649 oz I&O: 08/29/19 08/30/19 08/31/19 06:59 06:59 06:59 Intake Total 710 480 440 Output Total 1350 3400 Balance -640 -2920 440 Result Diagrams: 08/24/19 03:56 08/30/19 05:55 Additional Labs: Accuchecks 08/30/19 08/30/19 08/30/19 11:39 05:49 02:01 POC Glucose 203 H 166 H 108 08/30/19 08/29/19 01:35 20:51 POC Glucose 70 155 H Radiology Reviewed by me: Yes Hospitalist ROS - Review of Systems All other systems reviewed; all pertinent +/- noted in HPI/Subj - Medication Medications: Active Medications Generic Name Dose Route Start Last Admin Trade Name Freq PRN Reason Stop Dose Admin Hydrocodone Bitart/Acetaminophen 1 tab 08/22/19 00:35 08/30/19 16:08 Vivian 5/325 PO 1 tab Q4H PRN Administration Moderate Pain (4-6) Albuterol/Ipratropium 3 ml 08/24/19 13:00 08/30/19 13:32 Duoneb NEB 3 ml [id number] CECILIA Administration Atorvastatin Calcium 40 mg 08/20/19 21:00 08/29/19 20:50 Lipitor PO 40 mg HS CECILIA Administration Carvedilol 12.5 mg 08/20/19 09:00 08/30/19 09:09 Coreg PO 12.5 mg BID CECILIA Administration Clopidogrel Bisulfate 75 mg 08/20/19 09:00 08/30/19 09:08 Plavix PO 75 mg DAILY CECILIA Administration Dextrose/Water 25 gm 08/20/19 02:16 08/29/19 03:01 Dextrose 50% SLOW IVP 25 gm PRN PRN Administration Hypoglycemia Escitalopram Oxalate 20 mg 08/20/19 09:00 08/30/19 09:09 Lexapro PO 20 mg DAILY [facility] Administration Famotidine 20 mg 08/25/19 09:00 08/30/19 09:07 Pepcid PO 20 mg DAILY [facility] Administration Heparin Sodium (Porcine) 500 units 08/27/19 09:00 08/30/19 09:10 Heparin Lock Flush 100 Units/Ml IVF Not Given DAILY [facility] Hydralazine HCl 25 mg 08/25/19 09:00 08/30/19 11:26 Apresoline PO Not Given BID [facility] Insulin Glargine 60 units/ 0.6 mls @ 0 mls/hr 08/25/19 21:00 08/29/19 20:50 Miscellaneous Medication SC 0.6 mls HS [facility] Administration Ceftriaxone Sodium 1 gm/ 100 mls @ 200 mls/hr 08/29/19 12:00 08/30/19 12:17 Sodium Chloride IVPB 100 mls 1200 [facility] Administration Insulin Human Lispro 0 units 08/21/19 13:54 08/28/19 17:19 Humalog SC 2 unit .MODERATE SLIDING SC PRN Administration Moderate Correctional Scale Insulin Human Lispro 0 units 08/21/19 21:43 08/28/19 20:44 Humalog SC 2 unit .BEDTIME SLIDING SC PRN Administration Bedtime Correctional Scale Isosorbide Dinitrate 5 mg 08/27/19 21:00 08/30/19 09:08 Isordil PO 5 mg BID [facility] Administration Levothyroxine Sodium 50 mcg 08/20/19 06:00 08/30/19 05:36 Synthroid PO 50 mcg 0600 [facility] Administration Lidocaine 1 patch 08/21/19 09:00 08/30/19 09:09 Lidoderm 5% Patch TD 1 patch DAILY CECILIA Administration Miscellaneous Medication 1 each 08/21/19 21:00 08/29/19 20:52 Lidocaine Patch Removal TOP Not Given 2100 CECILIA Multivitamins 1 tab 08/20/19 09:00 08/30/19 09:09 Theragran PO 1 tab DAILY [facility] Administration Nitroglycerin 0.4 mg 08/20/19 02:17 08/20/19 19:45 Nitrostat SL 1 tab Q5MIN PRN Administration Chest Pain Ondansetron HCl 4 mg 08/20/19 01:50 08/21/19 04:50 Zofran Odt PO 4 mg Q6H PRN Administration Nausea/Vomiting Pregabalin 100 mg 08/20/19 09:00 08/30/19 09:07 Lyrica PO 100 mg BID CECILIA Administration Sodium Chloride 10 ml 08/27/19 09:00 08/30/19 09:10 Flush - Normal Saline IVF 10 ml DAILY CECILIA Administration - Exam General Appearance: NAD, awake alert Eye: anicteric sclera ENT: normocephalic atraumatic, moist mucosa Neck: supple, symmetric, no thyromegaly, no lymphadenopathy Heart: no murmur, no gallops, no rubs Respiratory: CTAB, no wheezes, no rales, no ronchi, normal chest expansion Gastrointestinal: soft, non-tender, non-distended, no guarding, no rigidity Extremities: no edema Skin: no lesions, no rashes Neurological: cranial nerve grossly intact, no focal deficits Musculoskeletal: generalized weakness Psychiatric: oriented to person, oriented to place, flat affect Hosp A/P (1) NSTEMI (non-ST elevated myocardial infarction) Code(s): I21.4 - NON-ST ELEVATION (NSTEMI) MYOCARDIAL INFARCTION Status: Acute (2) Afib Code(s): I48.91 - UNSPECIFIED ATRIAL FIBRILLATION Status: Chronic (3) Depression Code(s): F32.9 - MAJOR DEPRESSIVE DISORDER, SINGLE EPISODE, UNSPECIFIED Status : Chronic Qualifiers: Depression Type: major depressive disorder (4) PATRICA (acute kidney injury) Code(s): N17.9 - ACUTE KIDNEY FAILURE, UNSPECIFIED Status: Acute (5) Acute worsening of stage 3 chronic kidney disease Code(s): N18.3 - CHRONIC KIDNEY DISEASE, STAGE 3 (MODERATE) Status: Acute (6) Atrial fibrillation with RVR Code(s): I48.91 - UNSPECIFIED ATRIAL FIBRILLATION Status: Acute (7) Diabetes mellitus Code(s): E11.9 - TYPE 2 DIABETES MELLITUS WITHOUT COMPLICATIONS Status: Acute (8) Gait instability Code(s): R26.81 - UNSTEADINESS ON FEET Status: Acute (9) Mitral regurgitation Status: Acute (10) Orthostatic hypotension Code(s): I95.1 - ORTHOSTATIC HYPOTENSION Status: Acute (11) Orthostatic syncope Code(s): I95.1 - ORTHOSTATIC HYPOTENSION Status: Acute (12) Unstable angina Status: Acute (13) CAD (coronary artery disease) Code(s): I25.10 - ATHSCL HEART DISEASE OF [place] CORONARY ARTERY W/O ANG PCTRS Status: Chronic Qualifiers: Coronary Disease-Associated Artery/Lesion type: [place] artery [place] vs. transplanted heart: [place] heart Associated angina: with stable angina Qualified Code(s): I25.118 - Atherosclerotic heart disease of [place] coronary artery with other forms of angina pectoris (14) COPD (chronic obstructive pulmonary disease) Status: Chronic Qualifiers: COPD type: chronic bronchitis (15) Chronic kidney disease, stage 3 Code(s): N18.3 - CHRONIC KIDNEY DISEASE, STAGE 3 (MODERATE) Status: Chronic (16) Chronic stage c diastolic heart failure Code(s): I50.32 - CHRONIC DIASTOLIC (CONGESTIVE) HEART FAILURE Status: Chronic (17) DM type 2 (diabetes mellitus, type 2) Status: Chronic Qualifiers: Diabetes mellitus adjunct faculty for medical terminology insulin use: with alf use Diabetes mellitus complication status: with kidney complications Diabetes mellitus complication detail: with chronic kidney disease Chronic kidney disease stage : stage 3 (moderate) Qualified Code(s): E11.22 - Type 2 diabetes mellitus with diabetic chronic kidney disease; N18.3 - Chronic kidney disease, stage 3 ( moderate); Z79.4 - assisted (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 of insulin (18) Dyslipidemia Code(s): E78.5 - HYPERLIPIDEMIA, UNSPECIFIED Status: Chronic (19) HTN (hypertension) Code(s): I10 - ESSENTIAL (PRIMARY) HYPERTENSION Status: Chronic Qualifiers: Hypertension type: essential hypertension Qualified Code(s): I10 - Essential (primary) hypertension (20) Ischemic cardiomyopathy Code(s): I25.5 - ISCHEMIC CARDIOMYOPATHY Status: Chronic (21) Obesity (BMI 30.0-34.9) Code(s): E66.9 - OBESITY, UNSPECIFIED Status: Chronic (22) Paroxysmal atrial fibrillation Code(s): I48.0 - PAROXYSMAL ATRIAL FIBRILLATION Status: Chronic (23) Pulmonary HTN Code(s): I27.20 - PULMONARY HYPERTENSION, UNSPECIFIED Status: Chronic (24) Chest pain Code(s): R07.9 - CHEST PAIN, UNSPECIFIED Status: Inactive Qualifiers: Ischemic chest pain type: unspecified angina pectoris type - Plan Plan: medical unit surgery consultation, recommendations appreciated nephrology consultation, recommendations appreciated HD vascular access on 08/29 hemodialysis scheduled per nephrology replace electrolytes as needed blood pressure control cardiomyopathy regimen continue other home medications as able blood sugar control G.I. prophylaxis DVT prophylaxis disposition: will need outpatient hemodialysis chair prior to discharge
[2019-08-30] MEDS: Atorvastatin Calcium 40 MG TAB PO SCH (21:03)
[2019-08-30] MEDS: Insulin Glargine 30 UNITS in Pre-Filled Syringe 1 EACH SC SCH (21:07)
[2019-08-30] MEDS: Lidocaine Patch Removal 1 EACH TOP SCH (21:07)
[2019-08-31] MEDS: HYDROcodone/Acetaminophen 5/325 mg Tablet PO PRN ×4 (01:59→21:11)
[2019-08-31] MEDS: Levothyroxine Sodium 50 MCG TAB PO SCH (06:04)
[2019-08-31] MEDS: Insulin Glargine 30 UNITS in Pre-Filled Syringe 1 EACH SC SCH ×2 (09:45→20:56)
[2019-08-31] MEDS: Lidocaine 5% Patch TD SCH (09:45)
[2019-08-31] MEDS: Isosorbide Dinitrate 5 MG TAB PO SCH ×2 (09:45→20:55)
[2019-08-31] MEDS: Pregabalin 50 MG CAP PO SCH ×2 (09:45→21:06)
[2019-08-31] MEDS: Carvedilol 6.25 MG TAB PO SCH ×2 (09:46→20:56)
[2019-08-31] MEDS: Clopidogrel Bisulfate 75 MG TAB PO SCH (09:46)
[2019-08-31] MEDS: hydrALAZINE 25 MG TAB PO SCH ×2 (09:46→20:55)
[2019-08-31] MEDS: Escitalopram Oxalate 20 mg Tablet PO SCH (09:47)
[2019-08-31] MEDS: Multivit, Therapeutic 1 TAB PO SCH (09:47)
[2019-08-31] MEDS: Famotidine 20 MG TAB PO SCH (09:47)
[2019-08-31] MEDS: cefTRIAXone\\ROCEPHIN 1 GM in Sodium Chloride 0.9% 100 ML IVPB SCH (11:42)
--- NOTE | 2019-08-31 13:16 | PRG ---
DATE OF SERVICE: 08/31/2019 SUBJECTIVE: Patient was seen and examined at bedside and overnight events noted. Patient denies any shortness of breath or chest pain or palpitation. No history of nausea or vomiting or diarrhea or fever or chills or cramps. OBJECTIVE: GENERAL: This is a well-built female, in no apparent distress. VITAL SIGNS: Temperature 97.7. Pulse 80. Respiratory rate 18. Blood pressure 138/69. HEENT: Atraumatic, normocephalic. Oral mucosa is moist NECK: Supple. CARDIOVASCULAR: S1, S2 heard. Rate and rhythm regular. RESPIRATORY: Clear to auscultation. GASTROINTESTINAL: Abdomen is soft. MUSCULOSKELETAL: No tenderness. No edema. DERMATOLOGIC: No skin rash. NEUROLOGIC: Alert and awake and oriented X3. No focal neurologic deficits. Moving all the extremities. PSYCHIATRIC: Mood and affect normal. LABORATORY DATA: Not done today. ASSESSMENT AND PLAN: 1. End-stage renal disease. Continue dialysis. For now monitor labs closely. Urine output was improving. 2. Edema, remove fluid with dialysis. 3. Fluid overload. 4. Acidosis. 5. Hyperkalemia. 6. Anemia of chronic disease. 7. We will continue on dialysis as tolerated. Monitor renal function closely, monitor urine output closely. Job ID: [id number]
--- NOTE | 2019-08-31 13:26 | PDOC.HOSPP ---
- Subjective Subjective: Patient continues to do well. Right arm AV fistula is healing appropriately. She has temporary HD catheter in the upper chest bilat with a mild amount of blood. Patient with Howard catheter with a light yellow color to it. We will attempt to remove for Howard catheter at this time as we continue to increase the patient's mobility in anticipation that she will be going home in the upcoming days when we have an outpatient hemodialysis chair available. - Objective Vital Signs & Weight: Vital Signs (12 hours) Temp Pulse Resp BP BP Pulse Ox 08/31/19 09:46 80 138/69 08/31/19 08:00 95 08/31/19 07:18 97.7 F 80 18 138/69 95 Weight Admit Weight 211 lb 8 oz Weight 224 lb 13.944 oz I&O: 08/30/19 08/31/19 09/01/19 06:59 06:59 06:59 Intake Total 480 1170 240 Output Total 3400 1350 Balance -2920 -180 240 Result Diagrams: 08/24/19 03:56 08/30/19 05:55 Additional Labs: Accuchecks 08/31/19 08/31/19 08/30/19 11:08 05:57 19:35 POC Glucose 187 H 129 H 258 H 08/30/19 16:39 POC Glucose 247 H Hospitalist ROS - Review of Systems All other systems reviewed; all pertinent +/- noted in HPI/Subj - Medication Medications: Active Medications Generic Name Dose Route Start Last Admin Trade Name Freq PRN Reason Stop Dose Admin Hydrocodone Bitart/Acetaminophen 1 tab 08/22/19 00:35 08/31/19 06:04 [place] 5/325 PO 1 tab Q4H PRN Administration Moderate Pain (4-6) Atorvastatin Calcium 40 mg 08/20/19 21:00 08/30/19 21:03 Lipitor PO 40 mg HS CECILIA Administration Carvedilol 12.5 mg 08/20/19 09:00 08/31/19 09:46 Coreg PO 12.5 mg BID CECILIA Administration Clopidogrel Bisulfate 75 mg 08/20/19 09:00 08/31/19 09:46 Plavix PO 75 mg DAILY [facility] Administration Dextrose/Water 25 gm 08/20/19 02:16 08/29/19 03:01 Dextrose 50% SLOW IVP 25 gm PRN PRN Administration Hypoglycemia Escitalopram Oxalate 20 mg 08/20/19 09:00 08/31/19 09:47 Lexapro PO 20 mg DAILY [facility] Administration Famotidine 20 mg 08/25/19 09:00 08/31/19 09:47 Pepcid PO 20 mg DAILY [facility] Administration Heparin Sodium (Porcine) 500 units 08/27/19 09:00 08/31/19 09:47 Heparin Lock Flush 100 Units/Ml IVF Not Given DAILY [facility] Hydralazine HCl 25 mg 08/25/19 09:00 08/31/19 09:46 Apresoline PO 25 mg BID C[facility] Administration Ceftriaxone Sodium 1 gm/ 100 mls @ 200 mls/hr 08/29/19 12:00 08/31/19 11:42 Sodium Chloride IVPB 100 mls 1200 [facility] Administration Insulin Glargine 30 units/ 0.3 mls @ 0 mls/hr 08/30/19 21:00 08/31/19 09:45 Miscellaneous Medication SC 0.3 mls BID CECILIA Administration Insulin Human Lispro 0 units 08/21/19 13:54 08/28/19 17:19 Humalog SC 2 unit .MODERATE SLIDING SC PRN Administration Moderate Correctional Scale Insulin Human Lispro 0 units 08/21/19 21:43 08/28/19 20:44 Humalog SC 2 unit .BEDTIME SLIDING SC PRN Administration Bedtime Correctional Scale Isosorbide Dinitrate 5 mg 08/27/19 21:00 08/31/19 09:45 Isordil PO 5 mg BID CECILIA Administration Levothyroxine Sodium 50 mcg 08/20/19 06:00 08/31/19 06:04 Synthroid PO 50 mcg 0600 [facility] Administration Lidocaine 1 patch 08/21/19 09:00 08/31/19 09:45 Lidoderm 5% Patch TD 1 patch DAILY [facility] Administration Miscellaneous Medication 1 each 08/21/19 21:00 08/30/19 21:07 Lidocaine Patch Removal TOP 1 each 2100 [facility] Administration Multivitamins 1 tab 08/20/19 09:00 08/31/19 09:47 Theragran PO 1 tab DAILY [facility] Administration Nitroglycerin 0.4 mg 08/20/19 02:17 08/20/19 19:45 Nitrostat SL 1 tab Q5MIN PRN Administration Chest Pain Ondansetron HCl 4 mg 08/20/19 01:50 08/21/19 04:50 Zofran Odt PO 4 mg Q6H PRN Administration Nausea/Vomiting Pregabalin 100 mg 08/20/19 09:00 08/31/19 09:45 Lyrica PO 100 mg BID CECILIA Administration Sodium Chloride 10 ml 08/27/19 09:00 08/31/19 09:47 Flush - Normal Saline IVF 10 ml DAILY CECILIA Administration - Exam General Appearance: NAD, awake alert Eye: anicteric sclera ENT: normocephalic atraumatic, moist mucosa Neck: supple, symmetric, no lymphadenopathy Heart: no murmur, no gallops, no rubs Respiratory: CTAB, no wheezes, no rales, no ronchi, normal chest expansion Gastrointestinal: soft, non-tender, no guarding, no rigidity Extremities: no clubbing, no edema Skin: no lesions, no rashes Skin - other findings: Left and right upper chest HD cath. Right arm AV fistula healing Neurological: cranial nerve grossly intact, no focal deficits Musculoskeletal: generalized weakness Psychiatric: normal affect, normal behavior, A&O x 3 Hosp A/P (1) NSTEMI (non-ST elevated myocardial infarction) Code(s): I21.4 - NON-ST ELEVATION (NSTEMI) MYOCARDIAL INFARCTION Status: Acute (2) Afib Code(s): I48.91 - UNSPECIFIED ATRIAL FIBRILLATION Status: Chronic (3) Depression Code(s): F32.9 - MAJOR DEPRESSIVE DISORDER, SINGLE EPISODE, UNSPECIFIED Status : Chronic Qualifiers: Depression Type: major depressive disorder (4) PATRICA (acute kidney injury) Code(s): N17.9 - ACUTE KIDNEY FAILURE, UNSPECIFIED Status: Acute (5) Acute worsening of stage 3 chronic kidney disease Code(s): N18.3 - CHRONIC KIDNEY DISEASE, STAGE 3 (MODERATE) Status: Acute (6) Atrial fibrillation with RVR Code(s): I48.91 - UNSPECIFIED ATRIAL FIBRILLATION Status: Acute (7) Diabetes mellitus Code(s): E11.9 - TYPE 2 DIABETES MELLITUS WITHOUT COMPLICATIONS Status: Acute (8) Gait instability Code(s): R26.81 - UNSTEADINESS ON FEET Status: Acute (9) Mitral regurgitation Status: Acute (10) Orthostatic hypotension Code(s): I95.1 - ORTHOSTATIC HYPOTENSION Status: Acute (11) Orthostatic syncope Code(s): I95.1 - ORTHOSTATIC HYPOTENSION Status: Acute (12) Unstable angina Status: Acute (13) CAD (coronary artery disease) Code(s): I25.10 - ATHSCL HEART DISEASE OF [place] CORONARY ARTERY W/O ANG PCTRS Status: Chronic Qualifiers: Coronary Disease-Associated Artery/Lesion type: [place] artery [place] vs. transplanted heart: [place] heart Associated angina: with stable angina Qualified Code(s): I25.118 - Atherosclerotic heart disease of [place] coronary artery with other forms of angina pectoris (14) COPD (chronic obstructive pulmonary disease) Status: Chronic Qualifiers: COPD type: chronic bronchitis (15) Chronic kidney disease, stage 3 Code(s): N18.3 - CHRONIC KIDNEY DISEASE, STAGE 3 (MODERATE) Status: Chronic (16) Chronic stage c diastolic heart failure Code(s): I50.32 - CHRONIC DIASTOLIC (CONGESTIVE) HEART FAILURE Status: Chronic (17) DM type 2 (diabetes mellitus, type 2) Status: Chronic Qualifiers: Diabetes mellitus chcf insulin use: with assistant terminal manager use Diabetes mellitus complication status: with kidney complications Diabetes mellitus complication detail: with chronic kidney disease Chronic kidney disease stage : stage 3 (moderate) Qualified Code(s): E11.22 - Type 2 diabetes mellitus with diabetic chronic kidney disease; N18.3 - Chronic kidney disease, stage 3 ( moderate); Z79.4 - tank terminal gauger (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 of insulin (18) Dyslipidemia Code(s): E78.5 - HYPERLIPIDEMIA, UNSPECIFIED Status: Chronic (19) HTN (hypertension) Code(s): I10 - ESSENTIAL (PRIMARY) HYPERTENSION Status: Chronic Qualifiers: Hypertension type: essential hypertension Qualified Code(s): I10 - Essential (primary) hypertension (20) Ischemic cardiomyopathy Code(s): I25.5 - ISCHEMIC CARDIOMYOPATHY Status: Chronic (21) Obesity (BMI 30.0-34.9) Code(s): E66.9 - OBESITY, UNSPECIFIED Status: Chronic (22) Paroxysmal atrial fibrillation Code(s): I48.0 - PAROXYSMAL ATRIAL FIBRILLATION Status: Chronic (23) Pulmonary HTN Code(s): I27.20 - PULMONARY HYPERTENSION, UNSPECIFIED Status: Chronic (24) Chest pain Code(s): R07.9 - CHEST PAIN, UNSPECIFIED Status: Inactive Qualifiers: Ischemic chest pain type: unspecified angina pectoris type - Plan Plan: medical unit Medically stable for lower level of care. When has outpatient HD chair. surgery consultation, recommendations appreciated nephrology consultation, recommendations appreciated HD vascular access placed on 08/29 hemodialysis scheduled per nephrology replace electrolytes as needed blood pressure control cardiomyopathy regimen continue other home medications as able blood sugar control G.I. prophylaxis DVT prophylaxis disposition: will need outpatient hemodialysis chair prior to discharge
[2019-08-31] MEDS: Atorvastatin Calcium 40 MG TAB PO SCH (20:55)
[2019-08-31] MEDS: Lidocaine Patch Removal 1 EACH TOP SCH (20:58)
[2019-08-31] MEDS: HumaLOG 300 UNITS/3 ML VIAL SC PRN (21:06)
[2019-09-01] MEDS: Levothyroxine Sodium 50 MCG TAB PO SCH (05:51)
[2019-09-01] MEDS: HYDROcodone/Acetaminophen 5/325 mg Tablet PO PRN ×2 (05:51→12:14)
[2019-09-01 06:19] LABS: Anion Gap 12 mmol/L (10-20); BUN (Urea Nitrogen) 49 mg/dL (9.8-20.1); Calc. Creatinine Clearance 55 mL/min (70-130); Calcium 9.3 mg/dL (7.8-10.44); Carbon Dioxide 28 mmol/L (23-31); Chloride 102 mmol/L (98-107); Estimated GFR-MDRD 29; Glucose 69 mg/dL (80-115); Potassium 4.7 mmol/L (3.5-5.1); Sodium 137 mmol/L (136-145)
[2019-09-01] MEDS ORDERED: EPOETIN ALFA-EPBX (ESRD) 10,000 UNIT/ML VIAL IVP SCH (09:00)
[2019-09-01] MEDS: Isosorbide Dinitrate 5 MG TAB PO SCH (09:18)
[2019-09-01] MEDS: Insulin Glargine 30 UNITS in Pre-Filled Syringe 1 EACH SC SCH (09:18)
[2019-09-01] MEDS: Escitalopram Oxalate 20 mg Tablet PO SCH (09:19)
[2019-09-01] MEDS: Pregabalin 50 MG CAP PO SCH (09:19)
[2019-09-01] MEDS: Carvedilol 6.25 MG TAB PO SCH (09:19)
[2019-09-01] MEDS: hydrALAZINE 25 MG TAB PO SCH (09:19)
[2019-09-01] MEDS: Famotidine 20 MG TAB PO SCH (09:19)
[2019-09-01] MEDS: Multivit, Therapeutic 1 TAB PO SCH (09:19)
[2019-09-01] MEDS: Clopidogrel Bisulfate 75 MG TAB PO SCH (09:20)
[2019-09-01] MEDS: Lidocaine 5% Patch TD SCH (09:21)
--- NOTE | 2019-09-01 11:11 | PRG ---
DATE OF SERVICE: 09/01/2019 SUBJECTIVE: A 63-year-old female, being seen for acute kidney injury. The patient denies nausea, vomiting, or chest pain. OBJECTIVE: CONSTITUTIONAL: On examination, the patient is awake and alert. VITAL SIGNS: Afebrile. Pulse 95, breathing 16, blood pressure 134/68. GENERAL APPEARANCE AND MENTAL STATUS: Fair. HEAD/NECK: Normocephalic. Atraumatic. EYES: EOMI. No deformity. EARS: Clear. No ulcers. NOSE: Intact. No lesions. MOUTH: Clear. No discharge. THROAT: Clear. No exudate. LUNGS: Clear. No crackles. CARDIAC: S1, S2. No rub. ABDOMEN: Benign. Bowel sounds positive. GENITALIA/RECTUM: Howard absent. BACK/EXTREMITIES: Edema 0+. NEUROLOGICAL: Alert and motor intact. SKIN: LYMPHATICS: LABORATORY DATA: Reviewed. IMPRESSION AND PLAN: 1. Chronic kidney disease, stage 4, stable. 2. Hypertension, stable. 3. Acute kidney injury, stable. No indication for dialysis. We will follow renal function closely. The patient can have tunneled dialysis catheter removed. Job ID: [id number]
--- NOTE | 2019-09-01 11:25 | OP ---
DATE OF PROCEDURE: 08/29/2019 PREOPERATIVE DIAGNOSES: Morbid obesity, end-stage renal disease, poor IV access. PROCEDURES PERFORMED: Right internal jugular cuffed-tunneled hemodialysis catheter, failed attempted left internal jugular central line placement, left subclavian vein central line triple lumen, right arm primary fistula, perforating branch antecubital vein to the proximal radial artery, outflow primary basilic vein, but with a smaller communication of the cephalic vein, 4 mm coronary dilator calibrating the basilic vein outflow. I could not pass 2.5 mm coronary dilator at the cephalic vein. The patient will probably need a transposition fistula in the future basilic vein. ANESTHESIA: Regional, TIVA, local 0.5% Marcaine 30 mL mixed with 1% Xylocaine with epinephrine 20 mL. DESCRIPTION OF PROCEDURE: The patient was taken to the operating room, where under intravenous sedation, right upper extremity, neck, and chest were prepared with ChloraPrep and draped in routine fashion. Using ultrasound guidance, the right and left internal jugular veins were cannulated and on the right, the J-wire threaded and on the left, I could not maintain cannulation in internal jugular vein. After multiple attempts, the left subclavian vein was cannulated an infraclavicular approach and tthrough a trocar catheter, J-wire threaded, trocar catheter removed. Skin site was enlarged sharply at a J-wire entrance sites, left chest, and right neck. Using Seldinger technique, a triple-lumen catheter was placed in the left subclavian vein, secured with 3-0 nylon suture. Sterile dressings applied. Each port aspirated with blood, flushed with saline solution. On the right IJ, the stab incision was made over the right chest and using a tunneling device, pre-curved [employer] cuffed-tunneled hemodialysis catheter tunneled between the 2 incisions, placing the fabric cuff beneath the skin and catheter secured with 2 interrupted sutures of 3-0 nylon. Sterile dressings applied. Small and medium-sized dilators were placed over the J-wire into the internal jugular vein and removed. Dilator and Peel-Away sheath were placed over the J-wire into the superior vena cava. Dilator and J-wire were removed. Catheter was placed over the Peel-Away sheath. Peel-Away sheath was removed. Platysma was approximated with 4-0 Monocryl, skin with subdermal 4-0 Monocryl, and Vanoss glue applied. Each port aspirated with blood, flushed with saline solution and heparinized saline solution with 1000 units of heparin per mL, indicating volume of the port. Fluoroscopic images revealed good line placement. Attention was then turned to the right arm. Proximal volar forearm incision was made, and a good-sized antecubital vein and cephalic vein identified. Thus, incision was made in the right wrist and cephalic vein was not identified. Subcutaneous tissue was approximated with 3-0 Monocryl, skin with subdermal 4-0 Monocryl. Attention was turned to the proximal volar forearm, where the cephalic vein was dissected free in the forearm and outflow primary basilic vein with smaller communication of the cephalic vein. The perforating branch antecubital vein dissected free, and branches were divided between clips with 4-0 stick tie. The vein spatulated at a branch point and interrogated with coronary dilators, passing coronary dilators from a 2 mm to 4 mm dilator out the basilic vein outflow. The patient had been given 50,000 units of heparin intravenously and venous outflow. I irrigated with heparinized saline solution. A bulldog atraumatic clamp applied. The proximal radial artery was dissected free, clamped proximally and distally. Longitudinal arteriotomy was made sharply, elongated with Garza scissors for 2 cm anastomosis between the end perforating branch of the antecubital vein to the proximal radial artery with continuous suture of 6-0 Prolene, completing anastomosis, releasing clamps, noting good hemostasis and good outflow Doppler signal in the basilic vein and very minimal outflow in the cephalic vein upper arm. The patient is morbidly obese, probably will need a basilic vein transposition fistula. Good hemostasis noted as anesthesia gave the patient 25 mg of protamine intravenously. Subcutaneous tissue was approximated with 3-0 Monocryl, skin with subdermal 4-0 Monocryl, and Vanoss glue applied. Job ID: [id number]
[2019-09-01] MEDS: cefTRIAXone\\ROCEPHIN 1 GM in Sodium Chloride 0.9% 100 ML IVPB SCH (12:14)
[2019-09-01] MEDS: HumaLOG 300 UNITS/3 ML VIAL SC PRN (12:15)
--- NOTE | 2019-09-01 13:03 | PDOC.CPN ---
- Subjective Date: 09/01/19 Time: 13:01 Interval history: Doing well. No angina. Tolerating her meds and her HD. Had a right arm fistula placed sunday. - Review of Systems General: denies: fever/chills, weight/appetite/sleep changes, night sweats, fatigue Respiratory: denies: cough, congestion, shortness of breath, exercise intolerance Cardiovascular: denies: chest pain, palpitation, edema, paroxysmal nocturnal dyspnea, orthopnea Gastrointestinal: denies: nausea, vomiting, diarrhea, constipation, abd pain, GI bleeding Musculoskeletal: denies: pain, tenderness, stiffness, swelling, arthritis/ arthralgias Neurological: denies: numbness, syncope, seizure, weakness - Objective Allergies/Adverse Reactions: Allergies Allergy/AdvReac Type Severity Reaction Status Date / Time latex Allergy Verified 01/24/19 22:40 meperidine [From Demerol] Allergy Verified 01/24/19 22:40 morphine Allergy Verified 01/24/19 22:40 aspirin AdvReac Verified 04/27/19 01:49 Visit Medications: Current Medications Acetaminophen (Tylenol) 1,000 mg PO Q6H PRN PRN Reason: Moderate to Severe Pain (6-10) Hydrocodone Bitart/Acetaminophen ([place] 5/325) 1 tab PO Q4H PRN PRN Reason: Moderate Pain (4-6) Last Admin: 09/01/19 12:14 Dose: 1 tab Albuterol/Ipratropium (Duoneb) 3 ml NEB Q4H PRN PRN Reason: SOB &/or Wheezing Last Admin: 08/31/19 21:16 Dose: 3 ml Atorvastatin Calcium (Lipitor) 40 mg PO HS [facility] Last Admin: 08/31/19 20:55 Dose: 40 mg Carvedilol (Coreg) 12.5 mg PO BID [facility] Last Admin: 09/01/19 09:19 Dose: 12.5 mg Clopidogrel Bisulfate (Plavix) 75 mg PO DAILY [facility] Last Admin: 09/01/19 09:20 Dose: 75 mg Dextrose/Water (Dextrose 50%) 25 gm SLOW IVP PRN PRN PRN Reason: Hypoglycemia Last Admin: 08/29/19 03:01 Dose: 25 gm Epoetin Solis-epbx (Retacrit) 10,000 unit IVP MoWeFr@0900 [facility] Last Admin: 09/01/19 09:22 Dose: Not Given Escitalopram Oxalate (Lexapro) 20 mg PO DAILY [facility] Last Admin: 09/01/19 09:19 Dose: 20 mg Famotidine (Pepcid) 20 mg PO DAILY [facility] Last Admin: 09/01/19 09:19 Dose: 20 mg Fluticasone Propionate (Flonase Nasal [place]) 0 gm NASAL DAILYPRN PRN PRN Reason: nasal stuffiness Glucagon (Glucagon) 1 mg IM PRN PRN PRN Reason: Hypoglycemia Heparin Sodium (Porcine) (Heparin Lock Flush 100 Units/Ml) 500 units IVF DAILY [facility] Last Admin: 09/01/19 09:20 Dose: Not Given Hydralazine HCl (Apresoline) 25 mg PO BID [facility] Last Admin: 09/01/19 09:19 Dose: 25 mg Dextrose/Water (D5w) 1,000 mls @ 0 mls/hr IV .Q0M PRN PRN Reason: Hypoglycemia Ceftriaxone Sodium 1 gm/ (Sodium Chloride) 100 mls @ 200 mls/hr IVPB 1200 [facility] Last Admin: 09/01/19 12:14 Dose: 100 mls Insulin Glargine 30 units/ (Miscellaneous Medication) 0.3 mls @ 0 mls/hr SC BID [facility] Last Admin: 09/01/19 09:18 Dose: 0.3 mls Insulin Human Lispro (Humalog) 0 units SC .MODERATE SLIDING SC PRN PRN Reason: Moderate Correctional Scale Last Admin: 09/01/19 12:15 Dose: 4 unit Insulin Human Lispro (Humalog) 0 units SC .BEDTIME SLIDING SC PRN PRN Reason: Bedtime Correctional Scale Last Admin: 08/31/19 21:06 Dose: 5 unit Isosorbide Dinitrate (Isordil) 5 mg PO BID [facility] Last Admin: 09/01/19 09:18 Dose: 5 mg Levothyroxine Sodium (Synthroid) 50 mcg PO 0600 [facility] Last Admin: 09/01/19 05:51 Dose: 50 mcg Lidocaine (Lidoderm 5% Patch) 1 patch TD DAILY [facility] Last Admin: 09/01/19 09:21 Dose: 1 patch Miscellaneous Medication (Lidocaine Patch Removal) 1 each TOP 2100 [facility] Last Admin: 08/31/19 20:58 Dose: 1 each Multivitamins (Theragran) 1 tab PO DAILY [facility] Last Admin: 09/01/19 09:19 Dose: 1 tab Nitroglycerin (Nitrostat) 0.4 mg SL Q5MIN PRN PRN Reason: Chest Pain Last Admin: 08/20/19 19:45 Dose: 1 tab Ondansetron HCl (Zofran Odt) 4 mg PO Q6H PRN PRN Reason: Nausea/Vomiting Last Admin: 08/21/19 04:50 Dose: 4 mg Pregabalin (Lyrica) 100 mg PO BID [facility] Last Admin: 09/01/19 09:19 Dose: 100 mg Sodium Chloride (Flush - Normal Saline) 10 ml IVF DAILY [facility] Last Admin: 09/01/19 09:21 Dose: 10 ml Vital Signs & Weight: Vital Signs Temp Pulse Resp BP BP Pulse Ox 09/01/19 11:14 98.1 F 80 16 135/67 95 09/01/19 10:06 98.1 F 91 20 180/62 H 98 Admit Weight 211 lb 8 oz Weight 227 lb 1.218 oz - Physical Exam General: alert & oriented x3 HEENT: mucus membranes moist Neck: supple neck Cardiac: regular rate and rhythm Lungs: clear to auscultation Neuro: grossly intact Abdomen: active bowel sounds Extremities: no edema Skin: clear Musculoskeletal: no pain - Labs Result Diagrams: 08/24/19 03:56 09/01/19 05:45 Troponin/CKMB CK-MB (CK-2) 1.0 ng/mL (0-6.6) 08/20/19 23:06 Troponin I 0.134 ng/mL (< 0.028) H 08/20/19 23:06 - Assessment/Plan Assessment/Plan: 1. Unstable angina. 2. CAD 3. Paroxysmal afib 4. CKD, Stage 5 5. Acute on chronic systolic heart failure, improved. 6. Ischemic CM EF at 35-40% PLAN: - S/P POOJA of LAD and RCA on top of old BMS. - Significant improvement in symptoms with HD. High likelyhood that her symptoms in the past had been related to Uremia to some extent as she states she feels so much better than she has in a very long time. - Likely will need group home dialysis as she has had a very low GFR for many yrs now. - CV stable. - Disposition per nephrology. May discharge any time from cardiac perspective. - Will sign off. Please call with any questions. - Follow up in the office in 1 month.
--- NOTE | 2019-09-01 15:09 | PDOC.HOSPP ---
- Subjective Encounter Date: 09/01/19 Encounter Time: 15:20 Subjective: Patient feels a bit tired from ambulating today. No other complaints. Awaiting outpatient HD arrangements then can d/c home. - Objective Vital Signs & Weight: Vital Signs (12 hours) Temp Pulse Resp BP BP Pulse Ox 09/01/19 11:14 98.1 F 80 16 135/67 95 09/01/19 10:06 98.1 F 91 20 180/62 H 98 Weight Admit Weight 211 lb 8 oz Weight 227 lb 1.218 oz I&O: 08/31/19 09/01/19 09/02/19 06:59 06:59 06:59 Intake Total 1170 1910 Output Total 1350 600 Balance -180 1310 Result Diagrams: 08/24/19 03:56 09/01/19 05:45 Additional Labs: Accuchecks 09/01/19 09/01/19 09/01/19 11:21 09:33 05:36 POC Glucose 206 H 189 H 83 08/31/19 20:13 POC Glucose 357 H Hospitalist ROS - Review of Systems Constitutional: denies: fever, chills Respiratory: denies: cough, shortness of breath Cardiovascular: denies: chest pain, palpitations Gastrointestinal: denies: nausea, vomiting, abdominal pain - Medication Medications: Active Medications Generic Name Dose Route Start Last Admin Trade Name Freq PRN Reason Stop Dose Admin Hydrocodone Bitart/Acetaminophen 1 tab 09/01/19 05:42 09/01/19 12:14 [place] 5/325 PO 1 tab Q4H PRN Administration Moderate Pain (4-6) Albuterol/Ipratropium 3 ml 08/30/19 16:35 08/31/19 21:16 Duoneb NEB 3 ml Q4H PRN Administration SOB &/or Wheezing Atorvastatin Calcium 40 mg 08/20/19 21:00 08/31/19 20:55 Lipitor PO 40 mg HS [facility] Administration Carvedilol 12.5 mg 08/20/19 09:00 09/01/19 09:19 Coreg PO 12.5 mg BID [facility] Administration Clopidogrel Bisulfate 75 mg 08/20/19 09:00 09/01/19 09:20 Plavix PO 75 mg DAILY [facility] Administration Dextrose/Water 25 gm 08/20/19 02:16 08/29/19 03:01 Dextrose 50% SLOW IVP 25 gm PRN PRN Administration Hypoglycemia Epoetin Solis-epbx 10,000 unit 09/01/19 09:00 09/01/19 09:22 Retacrit IVP Not Given MoWeFr@0900 [facility] Escitalopram Oxalate 20 mg 08/20/19 09:00 09/01/19 09:19 Lexapro PO 20 mg DAILY [facility] Administration Famotidine 20 mg 08/25/19 09:00 09/01/19 09:19 Pepcid PO 20 mg DAILY [facility] Administration Heparin Sodium (Porcine) 500 units 08/27/19 09:00 09/01/19 09:20 Heparin Lock Flush 100 Units/Ml IVF Not Given DAILY [facility] Hydralazine HCl 25 mg 08/25/19 09:00 09/01/19 09:19 Apresoline PO 25 mg BID [facility] Administration Ceftriaxone Sodium 1 gm/ 100 mls @ 200 mls/hr 08/29/19 12:00 09/01/19 12:14 Sodium Chloride IVPB 100 mls 1200 [facility] Administration Insulin Glargine 30 units/ 0.3 mls @ 0 mls/hr 08/30/19 21:00 09/01/19 09:18 Miscellaneous Medication SC 0.3 mls BID [facility] Administration Insulin Human Lispro 0 units 08/21/19 13:54 09/01/19 12:15 Humalog SC 4 unit .MODERATE SLIDING SC PRN Administration Moderate Correctional Scale Insulin Human Lispro 0 units 08/21/19 21:43 08/31/19 21:06 Humalog SC 5 unit .BEDTIME SLIDING SC PRN Administration Bedtime Correctional Scale Isosorbide Dinitrate 5 mg 08/27/19 21:00 09/01/19 09:18 Isordil PO 5 mg BID [facility] Administration Levothyroxine Sodium 50 mcg 08/20/19 06:00 09/01/19 05:51 Synthroid PO 50 mcg 0600 [facility] Administration Lidocaine 1 patch 08/21/19 09:00 09/01/19 09:21 Lidoderm 5% Patch TD 1 patch DAILY [facility] Administration Miscellaneous Medication 1 each 08/21/19 21:00 08/31/19 20:58 Lidocaine Patch Removal TOP 1 each 2100 [facility] Administration Multivitamins 1 tab 08/20/19 09:00 09/01/19 09:19 Theragran PO 1 tab DAILY [facility] Administration Nitroglycerin 0.4 mg 08/20/19 02:17 08/20/19 19:45 Nitrostat SL 1 tab Q5MIN PRN Administration Chest Pain Ondansetron HCl 4 mg 08/20/19 01:50 08/21/19 04:50 Zofran Odt PO 4 mg Q6H PRN Administration Nausea/Vomiting Pregabalin 100 mg 08/20/19 09:00 09/01/19 09:19 Lyrica PO 100 mg BID [facility] Administration Sodium Chloride 10 ml 08/27/19 09:00 09/01/19 09:21 Flush - Normal Saline IVF 10 ml DAILY [facility] Administration - Exam General Appearance: NAD, awake alert ENT: moist mucosa Heart: RRR, no murmur, no gallops, no rubs Respiratory: CTAB, no wheezes, no rales, no ronchi Gastrointestinal: soft, non-tender, non-distended, normal bowel sounds Psychiatric: normal affect, normal behavior, A&O x 3 Hosp A/P (1) NSTEMI (non-ST elevated myocardial infarction) Code(s): I21.4 - NON-ST ELEVATION (NSTEMI) MYOCARDIAL INFARCTION Status: Acute (2) Afib Code(s): I48.91 - UNSPECIFIED ATRIAL FIBRILLATION Status: Chronic (3) Acute worsening of stage 3 chronic kidney disease Code(s): N18.3 - CHRONIC KIDNEY DISEASE, STAGE 3 (MODERATE) Status: Acute (4) Depression Code(s): F32.9 - MAJOR DEPRESSIVE DISORDER, SINGLE EPISODE, UNSPECIFIED Status : Chronic Qualifiers: Depression Type: major depressive disorder (5) Diabetes mellitus Code(s): E11.9 - TYPE 2 DIABETES MELLITUS WITHOUT COMPLICATIONS Status: Chronic (6) Anemia, normocytic normochromic Code(s): D64.9 - ANEMIA, UNSPECIFIED Status: Chronic (7) CAD (coronary artery disease) Code(s): I25.10 - ATHSCL HEART DISEASE OF [place] CORONARY ARTERY W/O ANG PCTRS Status: Chronic Qualifiers: Coronary Disease-Associated Artery/Lesion type: [place] artery [place] vs. transplanted heart: [place] heart Associated angina: with stable angina Qualified Code(s): I25.118 - Atherosclerotic heart disease of [place] coronary artery with other forms of angina pectoris (8) COPD (chronic obstructive pulmonary disease) Status: Chronic Qualifiers: COPD type: chronic bronchitis (9) Chronic stage c diastolic heart failure Code(s): I50.32 - CHRONIC DIASTOLIC (CONGESTIVE) HEART FAILURE Status: Chronic (10) DM type 2 (diabetes mellitus, type 2) Status: Chronic Qualifiers: Diabetes mellitus moth exterminator insulin use: with moth exterminator use Diabetes mellitus complication status: with kidney complications Diabetes mellitus complication detail: with chronic kidney disease Chronic kidney disease stage : stage 3 (moderate) Qualified Code(s): E11.22 - Type 2 diabetes mellitus with diabetic chronic kidney disease; N18.3 - Chronic kidney disease, stage 3 ( moderate); Z79.4 - skilled nursing (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 of insulin (11) Dyslipidemia Code(s): E78.5 - HYPERLIPIDEMIA, UNSPECIFIED Status: Chronic (12) HTN (hypertension) Code(s): I10 - ESSENTIAL (PRIMARY) HYPERTENSION Status: Chronic Qualifiers: Hypertension type: essential hypertension Qualified Code(s): I10 - Essential (primary) hypertension (13) Obesity (BMI 30.0-34.9) Code(s): E66.9 - OBESITY, UNSPECIFIED Status: Chronic (14) Pulmonary HTN Code(s): I27.20 - PULMONARY HYPERTENSION, UNSPECIFIED Status: Chronic - Plan Arranging outpatient HD, once set up can be discharged.
[2019-09-01 16:12] VITALS: BP 153/72; TEMP 97.8
--- NOTE | 2019-09-02 02:50 | DIS ---
DATE OF ADMISSION: 08/20/2019 DATE OF DISCHARGE: 09/01/2019 PRIMARY CARE PHYSICIAN: Dana Bella MD REASON FOR ADMISSION: Chest pain. DIAGNOSES AT DISCHARGE: 1. Non ST-elevation myocardial infarction status post stent placement x2. 2. Chronic atrial fibrillation on chronic anticoagulation. 3. Acute worsening of stage 3 chronic kidney disease, now requiring dialysis. 4. Depression. 5. Diabetes mellitus. 6. Anemia of chronic disease. 7. Coronary artery disease. 8. Chronic obstructive pulmonary disease. 9. Chronic stage C diastolic heart failure. 10. Dyslipidemia. 11. Hypertension. 12. Obesity. 13. Pulmonary hypertension. 14. Urinary tract infection. PROCEDURES PERFORMED: 1. Cardiac catheterization showing severe in-stent restenoses of the LAD and severe in-stent restenoses of the RCA, now with PCI and placement of drug-eluting stents in both of these vessels also with moderate to severe left circumflex disease, treated medically. 2. Echocardiogram showing ejection fraction of 45% to 50% apical anterior septal hypokinesis, right ventricular systolic pressure estimate 52 mmHg. Small pericardial effusion without tamponade. 3. Ultrasound for vessel mapping for dialysis access. 4. Right groin Trialysis catheter placement. 5. Right internal jugular cuffed tunneled hemodialysis catheter. Left subclavian central vein triple-lumen catheter of right arm primary fistula. CONSULTATIONS: 1. Cardiology, Moises Peter MD. 2. General Surgery, Alonzo Hawkins MD. 3. Nephrology, Dr. Jackson. 4. Pulmonology, Dr. Beltran. SUMMARY OF HOSPITAL COURSE: This is a 63-year-old female with a prolonged hospital course, please see progress notes and procedure notes for details from much computer chart. In summary, this is a 63-year-old female with past medical history of coronary artery disease, COPD, hypertension, diabetes, who presented to the ER with chest pain. She was found to have non-ST elevation [place]. She was admitted to the hospital. She had catheterization with notation of in-stent stenosis and had stents replaced. Dr. Peter stated that if these are restenosed and she would need bypass surgery, she is to be on Plavix and Eliquis for a full year. The patient had worsening of her chronic renal failure after the procedure and eventually started requiring continuous dialysis. She had access placed and was feeling much better after her dialysis was initiated. There was some thought that she may have been experiencing some chronic uremia leading to her feeling so bad for a long time. Eventually, outpatient dialysis was arranged and patient was able to be discharged home. DISCHARGE MANAGEMENT: Discharged home. ACTIVITY: As tolerated. DIET: Diabetic renal diet, IV therapy instructions for central line care. FOLLOWUP: Follow up with [facility] in [place], [place], for Sunday, Sunday, Sunday dialysis, with cardiac rehab in [place], with Dr. Bella in 2 days, with Dr. Peter next month as scheduled. DISCHARGE MEDICATIONS: 1. Eliquis 2.5 mg twice a day, 60 tablets dispensed. 2. Cefdinir 300 mg twice a day, 12 caps dispensed. 3. Hydralazine 25 mg twice a day, 60 tablets dispensed. 4. Isosorbide dinitrate 5 mg twice a day, 60 tablets dispensed. 5. Lidocaine 5% patch applied transdermally daily to be taken off at night, 30 patches dispensed. 6. Atorvastatin 40 mg at night. 7. Carvedilol 12.5 mg twice a day. 8. Clopidogrel 75 mg daily. 9. Lexapro 20 mg daily. 10. Flonase nasal spray as needed. 11. Levothyroxine 50 mcg daily. 12. Multivitamin daily. 13. Lyrica 100 mg twice a day. 14. Alprazolam 1 mg 3 times a day as needed for anxiety. 15. Lantus 60 units subcu at night. Arranging the details of this discharge took 35 minutes. Job ID: [id number]
== END 2019-09-01 18:50 | disposition home or self-care (01) | DRG 246 ==
LOC: ERS 21:45 → 2NO 08-20 01:26 → T4-A 08-28 14:06
PROVIDERS: ADMIT Internal Medicine; ATTEND Internal Medicine
PROC: 027135Z Dilation of Coronary Artery, Two Arteries with Two Drug-eluting Intraluminal Devices, Percutaneous Approach (ICD-10-PCS; principal; 2019-08-22)
PROC: 4A023N7 Measurement of Cardiac Sampling and Pressure, Left Heart, Percutaneous Approach (ICD-10-PCS; 2019-08-22)
PROC: B2111ZZ Fluoroscopy of Multiple Coronary Arteries using Low Osmolar Contrast (ICD-10-PCS; 2019-08-22)
PROC: 5A1D70Z Performance of Urinary Filtration, Intermittent, Less than 6 Hours Per Day (ICD-10-PCS; 2019-08-26)
PROC: 06HY33Z Insertion of Infusion Device into Lower Vein, Percutaneous Approach (ICD-10-PCS; 2019-08-26)
PROC: 0JH63XZ Insertion of Tunneled Vascular Access Device into Chest Subcutaneous Tissue and Fascia, Percutaneous Approach (ICD-10-PCS; 2019-08-29)
PROC: 02HV33Z Insertion of Infusion Device into Superior Vena Cava, Percutaneous Approach (ICD-10-PCS; 2019-08-29)
DX: T82.855A Stenosis of coronary artery stent, initial encounter (principal); I21.4 Non-ST elevation (NSTEMI) myocardial infarction; N18.6 End stage renal disease; I50.23 Acute on chronic systolic (congestive) heart failure; I48.20 Chronic atrial fibrillation, unspecified; N39.0 Urinary tract infection, site not specified; I31.3 Pericardial effusion (noninflammatory); N17.9 Acute kidney failure, unspecified; E87.1 Hypo-osmolality and hyponatremia; E87.2 Acidosis; I13.2 Hypertensive heart and chronic kidney disease with heart failure and with stage 5 chronic kidney disease, or end stage renal disease; N18.3 Chronic kidney disease, stage 3 (moderate); E11.22 Type 2 diabetes mellitus with diabetic chronic kidney disease; D63.1 Anemia in chronic kidney disease; I27.20 Pulmonary hypertension, unspecified; F32.9 Major depressive disorder, single episode, unspecified; E78.5 Hyperlipidemia, unspecified; Y83.8 Other surgical procedures as the cause of abnormal reaction of the patient, or of later complication, without mention of misadventure at the time of the procedure; I25.10 Atherosclerotic heart disease of native coronary artery without angina pectoris; E03.9 Hypothyroidism, unspecified; F41.9 Anxiety disorder, unspecified; M79.7 Fibromyalgia; J44.9 Chronic obstructive pulmonary disease, unspecified; F12.10 Cannabis abuse, uncomplicated; E87.5 Hyperkalemia; E11.65 Type 2 diabetes mellitus with hyperglycemia; I48.0 Paroxysmal atrial fibrillation; G43.909 Migraine, unspecified, not intractable, without status migrainosus; I25.5 Ischemic cardiomyopathy; E66.01 Morbid (severe) obesity due to excess calories; Z99.2 Dependence on renal dialysis; Z79.01 Long term (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 of anticoagulants; Z90.710 Acquired absence of both cervix and uterus; Z88.6 Allergy status to analgesic agent; Z91.040 Latex allergy status; Z79.4 Long term (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 of insulin
CPT/HCPCS: 36415; 36416; 71045; 71046; 76000; 80048; 80053; 80069; 82553; 82565; 82728; 83540; 83550; 83690; 83880; 84484; 85014; 85018; 85025; 85049; 85347; 86580; 86704; 86706; 86803; 87077; 87086; 87186; 87340; 90935; 92928; 92929; 93005; 93010; 93306; 93458; 93798; 93970; 94640; 99152; 99153; C1752; C1769; C1874; C1887; C9600; C9601; G0257; G0365; J0670; J0690; J0696; J1642; J1644; J1815; J1940; J2001; J2250; J2704; J2720; J2920; J3010; J3490; J7512; J7611; J7620; P9047; Q0162; Q5105; S0020

== ENCOUNTER 2019-09-02 17:22 | Inpatient (IN) | payer OTHER ==
[~2019-09-02 17:22] MED LIST changes: +Heparin 10,000 UNITS/ 10 ML VIAL ONE; -ISOVUE-370 76%-LOCM 1 ML ONE
[2019-09-02] MEDS ORDERED: Acetaminophen 325 MG TAB PO PRN (20:21)
[2019-09-02] MEDS ORDERED: Acetaminophen 650 MG Suppository PR PRN (20:30)
[2019-09-02] MEDS ORDERED: Dextrose 5% in Water 1,000 ML IV PRN (20:58)
[2019-09-02] MEDS ORDERED: HumaLOG 300 UNITS/3 ML VIAL SC PRN (20:58)
[2019-09-02] MEDS ORDERED: Dextrose 50% Abboject 50 ML SYRINGE SLOW IVP PRN (20:58)
--- NOTE | 2019-09-02 21:06 | PDOC.HHP ---
Hospitalist HPI - History of Present Illness Shortness of breath and chest pain History of Present Illness: Ms. Mendez is a pleasant 63 year old woman presenting with shortness of breath and intermittent chest pain since 8am this morning. Patient states she was told she would undergo dialysis and presented for an appointment yesterday but was told she did not have dialysis scheduled. She reports feeling feverish and states she was told she had a temp of 100.7 a little while ago. She denies any productive cough. States her chest pain is substernal and rates it an 8/10 in severity. Reports the pain radiates to the left side of her neck. It has been intermittent and is unable to states how long each episode lasts or how soon it comes back. Reports having aching/ cramping in both legs but no swelling. Has not had any nausea or vomiting and denies any diarrhea. States she has only urinated once, states she feels as if her bladder is full but has been unable to urinate. Of note, she was seen by Dr. Jackson during most recent admission, apparently per his note, he felt dialysis was not indicated and had advised removal of the dialysis catheter which she still has in place. Patient had heart cath in 04/2019, with 70% stenosis of LAD and 80% in RCA. Had BMS placed in both vessels. ED Course: EKG showed sinus tachycardia with HR of 110, LBBB and LAE, nonspecific ST segment/T wave changes. CXR done showed findings suspicious for fluid overload/CHF. She was given 80 mg of IV Lasix and 500 mLs of NS. Also given methylprednisolone 125 mg IV and a duoneb. Patient transferred here and admission requested on arrival. Case was discussed with Dr. Jackson by Dr. Gutierrez, and confirmed that patient was not recommended dialysis. He was agreeable to see her. Hospitalist ROS - Review of Systems Constitutional: reports: malaise. denies: fever, chills, sweats, weakness, other Eyes: denies: pain, vision change, conjunctivae inflammation, eyelid inflammation, redness, other ENT: denies: ear pain, ear discharge, nose pain, nose discharge, nose congestion , mouth pain, mouth swelling, throat pain, throat swelling, other Respiratory: reports: shortness of breath Cardiovascular: reports: chest pain (substernal pressure with occasional stabbing, 8/10 in severity, intermittent). denies: palpitations, orthopnea, paroxysmal noc. dyspnea, edema, light headedness, other Gastrointestinal: reports: abdominal pain (suprapurbic discomfort, feeling like bladder is full). denies: nausea, vomiting, diarrhea, constipation, melena, hematochezia, other Genitourinary: reports: retention (reports feeling like she needs to but cant urinate) Musculoskeletal: reports: neck pain (radiating from chest pain earlier today). denies: shoulder pain, arm pain, back pain, hand pain, leg pain, foot pain, other Skin: denies: rash, lesions, chiquis, bruising, other Neurological: denies: weakness, numbness, incoordination, change in speech, confusion, seizures, other Hospitalist History - Past Medical History Cardiac: reports: AFIB, CAD, HTN, PA (x6) Pulmonary: reports: COPD CONDENSER WINDER: reports: Migraine Gastrointestinal: reports: Diverticulosis Psych: reports: Anxiety, Depression Musculoskeletal: reports: Chronic low back pain (hx of spinal stenosis), Osteoarthritis Rheumatologic: reports: Fibromyalgia Renal/: reports: Acute renal failure, Chronic renal failure (stage 4 CKD) Endocrine: reports: Diabetes, Hypothyroidism - Past Surgical History Past Surgical History: reports: Hysterectomy Other Surgical History: Surgery right leg, 1994 Partial hysterectomy Cyst removal left arm. Cyst removal left shoulder/back. Bone graft on leg. - Family History Family History: reports: cancer (sister of ovarian cancer), cardiac disorder (CAD), Other (kidney failure) - Social History Alcohol: reports: None Drugs: reports: Other (Used marijuana in the past..) Living Situation: Alone - Exam General Appearance: NAD, awake alert General - other findings: appears short of breath when talking Eye: anicteric sclera ENT: dry oral mucosa Neck: supple, no lymphadenopathy Heart: RRR, no murmur, no gallops, no rubs Respiratory - other findings: Crackles at the bilateral bases Gastrointestinal: soft, non-distended, no guarding, no rigidity, tender to palpation (mild discomfort in suprapubic region) Extremities: no edema Skin: no lesions, no rashes Neurological: cranial nerve grossly intact, normal sensation to touch, no weakness Musculoskeletal: normal tone, normal strength, no muscle wasting Psychiatric: normal affect, normal behavior, A&O x 3 Hospitalist Results - Radiology Interpretation Chest x-ray Status: report reviewed by me Hospitalist H&P A/P - Problem (1) Chest pain Code(s): R07.9 - CHEST PAIN, UNSPECIFIED Status: Inactive Qualifiers: Ischemic chest pain type: unspecified angina pectoris type (2) Shortness of breath Code(s): R06.02 - SHORTNESS OF BREATH Status: Acute (3) Urinary retention Code(s): R33.9 - RETENTION OF URINE, UNSPECIFIED Status: Acute (4) Pulmonary edema cardiac cause Code(s): I50.1 - LEFT VENTRICULAR FAILURE, UNSPECIFIED Status: Acute (5) CAD (coronary artery disease) Code(s): I25.10 - ATHSCL HEART DISEASE OF [place] CORONARY ARTERY W/O ANG PCTRS Status: Chronic Qualifiers: Coronary Disease-Associated Artery/Lesion type: [place] artery [place] vs. transplanted heart: [place] heart Associated angina: with stable angina Qualified Code(s): I25.118 - Atherosclerotic heart disease of [place] coronary artery with other forms of angina pectoris (6) DM type 2 (diabetes mellitus, type 2) Status: Chronic Qualifiers: Diabetes mellitus meterman insulin use: with meterman use Diabetes mellitus complication status: with kidney complications Diabetes mellitus complication detail: with chronic kidney disease Chronic kidney disease stage : stage 3 (moderate) Qualified Code(s): E11.22 - Type 2 diabetes mellitus with diabetic chronic kidney disease; N18.3 - Chronic kidney disease, stage 3 ( moderate); Z79.4 - termite treater helper (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 of insulin (7) HTN (hypertension) Code(s): I10 - ESSENTIAL (PRIMARY) HYPERTENSION Status: Chronic Qualifiers: Hypertension type: essential hypertension Qualified Code(s): I10 - Essential (primary) hypertension (8) COPD (chronic obstructive pulmonary disease) Status: Chronic Qualifiers: COPD type: chronic bronchitis (9) Dyslipidemia Code(s): E78.5 - HYPERLIPIDEMIA, UNSPECIFIED Status: Chronic (10) Depression Code(s): F32.9 - MAJOR DEPRESSIVE DISORDER, SINGLE EPISODE, UNSPECIFIED Status : Chronic Qualifiers: Depression Type: major depressive disorder (11) Obesity (BMI 30.0-34.9) Code(s): E66.9 - OBESITY, UNSPECIFIED Status: Chronic - Plan Plan: Gentle diuresis per Dr. Jackson. s/p 80 mg IV Lasix at [place] before being transferred. Cardio consult placed to Dr. Peter, per Dr. Jackson, fluid overload felt to be due to cardiac cause rather than fluid retention due to renal failure. Elevated trop, of unclear etiology. Possibly due to fluid overload vs. ischemia vs. valvular disease. Patient pain free at present. Continue anticoagulation which she takes for chronic paroxysmal afib. Continue cardiac monitoring. Repeat EKG to assess for dynamic changes. Trend troponins. Continue duo nebs. Bladder scan, if retaining place [place]. UA/UCx. Blood cultures given fever. Add-on procalcitonin and lactic acid. Monitor glucose, initiate ISS. Monitor BP. Resume home meds once verified. CODE STATUS FULL: Surrogate decision maker is Bryce Meek, her sister. Discussed with attending who agrees with plan as above.
[2019-09-02 21:44] LABS: CKMB 1.4 ng/mL (0-6.6)
--- NOTE | 2019-09-02 22:12 | PRG ---
DATE OF SERVICE: 09/02/2019 SUBJECTIVE: This 63-year-old female being seen for acute kidney injury/end-stage renal disease. The patient was discharged yesterday, but re-presented with sudden onset of shortness of breath and dyspnea. The patient states she was not making urine this morning, but is not making urine. The patient denies no headache, numbness, tingling, or weakness. Denies any nausea, vomiting, or chest pain. OBJECTIVE: GENERAL: The patient is awake and alert. VITAL SIGNS: Afebrile, pulse 75, breathing 16, blood pressure was 157/81. GENERAL APPEARANCE AND MENTAL STATUS: Fair. HEAD/NECK: Normocephalic. Atraumatic. EYES: EOMI. No deformity. EARS: Clear. No ulcers. NOSE: Intact. No lesions. MOUTH: Clear. No discharge. THROAT: Clear. No exudate. LUNGS: Clear. Show few crackles. CARDIAC: S1, S2. No rub. ABDOMEN: Benign. Bowel sounds positive. GENITALIA/RECTUM: Howard absent. BACK/EXTREMITIES: Edema 0+. NEUROLOGICAL: Alert and motor intact. SKIN: LYMPHATICS: LABORATORY DATA: Reviewed. ASSESSMENT AND PLAN: Acute kidney injury with pulmonary edema and dyspnea. We will do gentle dialysis based on the symptoms. I will also recommend urgent Cardiology consultation to evaluate for cardiac ischemia versus valvular disorder causing pulmonary edema, hypertension, stable; anemia, stable; hyperkalemia, plan dialysis. The above findings were discussed with the primary team. Job ID: [id number]
[2019-09-02] MEDS ORDERED: Nitroglycerin 0.4 MG TAB (25 Tab Bottle) PO PRN (22:39)
[2019-09-02 23:21] VITALS: BMI 35.3
[2019-09-02 23:37] LABS: Bacteria/HPF None Seen HPF (None Seen); Bilirubin Negative (Negative); Blood, Urine Trace (Negative); Clarity Clear (Clear); Glucose, Urine (Dipstick) Normal (Negative); Leukocyte Negative Leu/uL (Negative); Nitrite Negative (Negative); Protein, Urine (Dipstick) Negative (Neg-Trace); RBC/HPF 0-3 HPF (0-3); Squamous Epithelial 0-3 HPF (0-3); Urobilinogen Normal mg/dL (Less than 2); WBC/HPF 0-3 HPF (0-3)
[2019-09-02 23:39] LABS: Urine Culture Reflex No No
--- NOTE | 2019-09-03 00:22 | ULT ---
Bilateral lower extremity venous Doppler ultrasound: 09/03/2019 COMPARISON: None HISTORY: Pain, edema, swelling TECHNIQUE: Multiplanar grayscale sonographic imaging of the venous structures of bilateral lower extr emities obtained with color flow and spectral analysis FINDINGS: Bilateral common femoral veins, greater saphenous veins, profunda femoral veins, femoral ve ins, popliteal veins, and posterior tibial veins are patent. There is normal blood flow, augmentation, and compression within the deep venous system bilaterally. No evidence for DVT on eithe r side. There is a hypoechoic area posterior and medial to the right popliteal fossa measuring 2.7 x 0.9 cm, likely on the basis of a Urbina's cyst. IMPRESSION: No evidence for deep venous thrombosis of either lower extremity.
[2019-09-03 04:37] LABS: #Eosinphils 0.1 thou/uL (0.0-0.7); #Lymphocytes 0.7 thou/uL (1.20-3.40); #Monocytes 0.8 thou/uL (0.11-0.59); #Neutrophils 11.9 thou/uL (1.40-6.50); %Eosinophils 0.9 % (0.0-10.0); %Lymphocytes 5.1 % (21.0-51.0); %Monocytes 5.8 % (0.0-10.0); %Neutrophils 88.2 % (42.0-75.0); Hemoglobin 8.1 g/dL (12.0-16.0); Mean Corpuscular HGB CONC 33.3 g/dL (32.0-36.0); Mean Corpuscular Volume 87.1 fL (78.0-98.0); Mean Platelet Volume 9.4 fL (7.4-10.4); Platelet Count 211 thou/uL (130-400); RBC Distribution Width 14.3 % (11.5-14.5); White Blood Cell (WBC) Count 13.5 thou/uL (4.8-10.8)
[2019-09-03 04:57] LABS: Anion Gap 17 mmol/L (10-20); BUN (Urea Nitrogen) 35 mg/dL (9.8-20.1); Calc. Creatinine Clearance 61 mL/min (70-130); Calcium 9.6 mg/dL (7.8-10.44); Carbon Dioxide 24 mmol/L (23-31); Cardiac Risk 3.1 (Less than 4.5); Chloride 101 mmol/L (98-107); Cholesterol 139 mg/dl (< 200 Desired); Estimated GFR-MDRD 34; Glucose 228 mg/dL (80-115); HDL Cholesterol 45 mg/dL (>60 Neg Risk); LDL Cholesterol, Calculated 81 mg/dL; Potassium 4.3 mmol/L (3.5-5.1); Sodium 138 mmol/L (136-145); Triglycerides 64 mg/dL (Less than 150)
[2019-09-03] MEDS ORDERED: ALPRAZolam 1 MG TAB PO PRN (08:03)
[2019-09-03] MEDS ORDERED: Fluticasone Propionate Nasal Spray 16 gm Bottle NASAL PRN ×2 (08:03→08:15)
[2019-09-03] MEDS ORDERED: MULTIVITAMIN PO SCH (09:00)
[2019-09-03] MEDS ORDERED: Non-Formulary Item 1 EACH (Carvedilol [Coreg] 12.5 MG) PO SCH (09:00)
[2019-09-03] MEDS ORDERED: Non-Formulary Item 1 EACH (Pregabalin [Lyrica] 100 MG) PO SCH (09:00)
[2019-09-03] MEDS: Aspirin 81 mg Enteric Coated Tablet PO SCH (09:56)
[2019-09-03] MEDS: Multivit, Therapeutic 1 TAB PO SCH (09:56)
[2019-09-03] MEDS: Clopidogrel Bisulfate 75 MG TAB PO SCH (09:56)
[2019-09-03] MEDS: Isosorbide Dinitrate 5 MG TAB PO SCH ×2 (09:56→21:02)
[2019-09-03] MEDS: Levothyroxine Sodium 50 MCG TAB PO SCH (09:56)
[2019-09-03] MEDS: Apixaban 2.5 MG TAB PO SCH ×2 (09:56→21:02)
[2019-09-03] MEDS: hydrALAZINE 25 MG TAB PO SCH ×2 (09:57→21:03)
[2019-09-03] MEDS: Carvedilol 6.25 MG TAB PO SCH ×2 (09:57→21:02)
[2019-09-03] MEDS: Escitalopram Oxalate 20 mg Tablet PO SCH (09:57)
[2019-09-03] MEDS: Pregabalin 50 MG CAP PO SCH ×2 (09:57→21:02)
--- NOTE | 2019-09-03 09:57 | PRG ---
DATE OF SERVICE: 09/03/2019 SUBJECTIVE: This is a 63-year-old female, being seen for acute kidney injury with chronic kidney disease. The patient denies any nausea, vomiting, or chest pain. OBJECTIVE: GENERAL: The patient is awake and alert. VITAL SIGNS: Afebrile, pulse 75, breathing 16, blood pressure 128/62. HEENT: Head normocephalic and atraumatic. Eyes intact, no ulcers. Nose intact, no ulcers. Ears intact, no ulcers. NECK: Supple. No JVD. CHEST: Symmetrical and clear. CARDIOVASCULAR: Shows S1 and S2, no rub, no murmur. GASTROINTESTINAL: Abdomen is soft, bowel sounds positive. EXTREMITIES: Show no edema or ulcers. SKIN: Shows no rash or petechiae. MUSCULOSKELETAL: Shows no joint swelling or stiffness. GENITOURINARY: Shows no Howard or CVA tenderness. NEUROLOGIC: Motor intact. Cranial nerves intact. LABORATORY DATA: Reviewed. ASSESSMENT AND PLAN: 1. Stage 3 chronic kidney disease, acute kidney injury, most likely due to decreased effective arterial blood volume and cardiorenal syndrome. I would recommend Cardiology evaluation. Dialysis was emergently for flash pulmonary edema. 2. Hyperkalemia, resolved. 3. Anemia, stable. 4. Medication based on GFR, appropriate. Job ID: [id number]
[2019-09-03] MEDS: Lidocaine 5% Patch TD SCH (09:58)
[2019-09-03] MEDS: HumaLOG 300 UNITS/3 ML VIAL SC PRN ×2 (11:19→17:41)
--- NOTE | 2019-09-03 12:47 | PDOC.HOSPP ---
- Subjective Encounter Date: 09/03/19 Encounter Time: 07:45 Subjective: Patient seen and examined. No new complaints. No overnight events - Objective Vital Signs & Weight: Vital Signs (12 hours) Temp Pulse Resp BP BP Pulse Ox 09/03/19 11:25 90 16 96/67 96 09/03/19 07:09 98.7 F 90 16 128/62 96 09/03/19 05:19 98.9 F 94 16 133/64 96 Weight Weight 225 lb 9.6 oz I&O: 09/02/19 09/03/19 09/04/19 06:59 06:59 06:59 Intake Total 240 Output Total 500 Balance -260 Result Diagrams: 09/03/19 04:16 09/03/19 04:16 Additional Labs: Accuchecks 09/03/19 09/03/19 12:39 10:36 POC Glucose 280 H 256 H Radiology Reviewed by me: Yes EKG Reviewed by me: Yes Hospitalist ROS - Review of Systems Respiratory: denies: cough, dry, shortness of breath, hemoptysis, SOB with excertion, pleuritic pain, sputum, wheezing, other Cardiovascular: denies: chest pain, palpitations, orthopnea, paroxysmal noc. dyspnea, edema, light headedness, other Gastrointestinal: denies: nausea, vomiting, abdominal pain, diarrhea, constipation, melena, hematochezia, other Genitourinary: denies: dysuria, frequency, incontinence, hematuria, retention, other - Medication Medications: Active Medications Generic Name Dose Route Start Last Admin Trade Name Freq PRN Reason Stop Dose Admin Apixaban 2.5 mg 09/03/19 09:00 09/03/19 09:56 Eliquis PO 2.5 mg BID CECILIA Administration Aspirin 81 mg 09/03/19 09:00 09/03/19 09:56 Ecotrin PO 81 mg DAILY CECILIA Administration Carvedilol 12.5 mg 09/03/19 09:00 09/03/19 09:57 Coreg PO 12.5 mg BID CECILIA Administration Clopidogrel Bisulfate 75 mg 09/03/19 09:00 09/03/19 09:56 Plavix PO 75 mg DAILY CECILIA Administration Escitalopram Oxalate 20 mg 09/03/19 09:00 09/03/19 09:57 Lexapro PO 20 mg DAILY CECILIA Administration Hydralazine HCl 25 mg 09/03/19 09:00 09/03/19 09:57 Apresoline PO 25 mg BID CECILIA Administration Insulin Human Lispro 0 units 09/02/19 20:58 09/03/19 11:19 Humalog SC 4 unit .MILD SLIDING SCALE PRN Administration Mild Correctional Scale Isosorbide Dinitrate 5 mg 09/03/19 09:00 09/03/19 09:56 Isordil PO 5 mg BID CECILIA Administration Levothyroxine Sodium 50 mcg 09/03/19 09:00 09/03/19 09:56 Synthroid PO 50 mcg DAILY CECILIA Administration Lidocaine 1 patch 09/03/19 09:00 09/03/19 09:58 Lidoderm 5% Patch TD 1 patch DAILY CECILIA Administration Multivitamins 1 tab 09/03/19 09:00 09/03/19 09:56 Theragran PO 1 tab DAILY CECILIA Administration Pregabalin 100 mg 09/03/19 09:00 09/03/19 09:57 Lyrica PO 100 mg BID CECILIA Administration - Exam General Appearance: NAD, awake alert Eye: PERRL, anicteric sclera ENT: normocephalic atraumatic, no oropharyngeal lesions Neck: supple, symmetric, no JVD, no thyromegaly Heart: RRR, no murmur, no gallops, no rubs Respiratory: CTAB, no wheezes, no rales Gastrointestinal: soft, non-tender, non-distended, normal bowel sounds Extremities: no cyanosis, no clubbing Skin: normal turgor, no lesions Neurological: no focal deficits Musculoskeletal: normal tone, normal strength Psychiatric: normal affect, normal behavior Hosp A/P (1) Pulmonary edema cardiac cause Code(s): I50.1 - LEFT VENTRICULAR FAILURE, UNSPECIFIED Status: Acute (2) Type [address] elevation Code(s): I21.A1 - MYOCARDIAL INFARCTION TYPE 2 Status: Acute (3) Anemia, normocytic normochromic Code(s): D64.9 - ANEMIA, UNSPECIFIED Status: Chronic (4) CAD (coronary artery disease) Code(s): I25.10 - ATHSCL HEART DISEASE OF [place] CORONARY ARTERY W/O ANG PCTRS Status: Chronic Qualifiers: Coronary Disease-Associated Artery/Lesion type: [place] artery [place] vs. transplanted heart: [place] heart Associated angina: with stable angina Qualified Code(s): I25.118 - Atherosclerotic heart disease of [place] coronary artery with other forms of angina pectoris (5) COPD (chronic obstructive pulmonary disease) Status: Chronic Qualifiers: COPD type: chronic bronchitis (6) Chronic kidney disease, stage 3 Code(s): N18.3 - CHRONIC KIDNEY DISEASE, STAGE 3 (MODERATE) Status: Chronic (7) Chronic stage c diastolic heart failure Code(s): I50.32 - CHRONIC DIASTOLIC (CONGESTIVE) HEART FAILURE Status: Chronic (8) DM type 2 (diabetes mellitus, type 2) Status: Chronic Qualifiers: Diabetes mellitus watermelon inspector insulin use: with watermelon inspector use Diabetes mellitus complication status: with kidney complications Diabetes mellitus complication detail: with chronic kidney disease Chronic kidney disease stage : stage 3 (moderate) Qualified Code(s): E11.22 - Type 2 diabetes mellitus with diabetic chronic kidney disease; N18.3 - Chronic kidney disease, stage 3 ( moderate); Z79.4 - FDC (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 of insulin (9) Depression Code(s): F32.9 - MAJOR DEPRESSIVE DISORDER, SINGLE EPISODE, UNSPECIFIED Status : Chronic Qualifiers: Depression Type: major depressive disorder (10) Dyslipidemia Code(s): E78.5 - HYPERLIPIDEMIA, UNSPECIFIED Status: Chronic (11) HTN (hypertension) Code(s): I10 - ESSENTIAL (PRIMARY) HYPERTENSION Status: Chronic Qualifiers: Hypertension type: essential hypertension Qualified Code(s): I10 - Essential (primary) hypertension (12) Ischemic cardiomyopathy Code(s): I25.5 - ISCHEMIC CARDIOMYOPATHY Status: Chronic (13) Paroxysmal atrial fibrillation Code(s): I48.0 - PAROXYSMAL ATRIAL FIBRILLATION Status: Chronic (14) Pulmonary HTN Code(s): I27.20 - PULMONARY HYPERTENSION, UNSPECIFIED Status: Chronic - Plan old records reviewed/req s/p HD last night on room air cardio to see medication reviewed and continue to provide symptomatic care
--- NOTE | 2019-09-03 19:20 | CON ---
DATE OF CONSULTATION: 09/03/2019 PRIMARY COLD PATCHER: Moises Peter MD HISTORY OF PRESENT ILLNESS: Ms. Mendez was admitted on the 26 of August. She had symptoms consistent with unstable angina. Troponin was just mildly elevated, indeterminate range. She was taken to the catheterization lab with a creatinine of 1.6, and she had severe in-stent restenoses of the LAD and RCA. These were both bare metal stents that had been placed in the past, so we intervened and placed drug-eluting stents on the LAD and the RCA. Postoperatively, her creatinine continued to increase to the point where it was felt that she was going to need dialysis. It was unclear whether this was going to be long-term versus just acute; however, Ms. Mendez tells me that she felt a whole lot better once dialysis was started. She feels that this is the best she has felt in a long time when dialysis was done for her. She eventually was thought to be good. Her creatinine was actually a lot better and stable off dialysis, so she was sent home and she again presented today with worsening shortness of breath, decreased urine and elevated troponins. Cardiology has been consulted. She denies any chest pain, tightness, or pressure. She states she did have chest pain yesterday. Currently, her creatinine is 1.56, on discharge was 1.76, it went as high as 3.02. Past medical history, surgical history, medications, family histories; please see the most recent note from 08/26/2019, and discharge summary from 09/01/2019. REVIEW OF SYSTEMS: A 12-point review of systems was done and was all negative unless stated in the history of present illness. PHYSICAL EXAMINATION: VITAL SIGNS: Temperature 98.0, pulse 88, respiratory rate 18, saturation 93% on room air, blood pressure 127/59. GENERAL: Awake, alert, oriented x3. No distress. HEENT: Normocephalic, atraumatic. NECK: Supple. LUNGS: Clear. CARDIOVASCULAR: S1 and S2. No S3 or S4. No murmurs. No rubs. ABDOMEN: Soft. Positive bowel sounds. EXTREMITIES: No edema. SKIN: Warm and dry. LABORATORY DATA: Laboratory work was reviewed. CBC with a white count of 13, hemoglobin of 8.1, hematocrit 24, platelet count of 211. Chemistry showed a BUN of 35, creatinine 1.56. Troponins were 0.30 and 0.36. Triglycerides of 64, cholesterol total 139, LDL of 81, HDL of 45. EKG was reviewed, left bundle branch block. Previous EKG showed nonspecific intraventricular conduction delay with a QRS about 128 milliseconds. ASSESSMENT: 1. Acute on chronic systolic versus diastolic congestive heart failure. 2. Acute kidney injury on chronic kidney disease. Likely, this is a tail end of contrast-induced nephropathy on top of chronic kidney disease. 3. [id number] myocardial infarction. Likely type 2 demand type of ischemia. PLAN: 1. If this was in-stent thrombosis, I would expect her troponin to be significantly higher than what it is. I would expect her CK-MB to be positive as well. At this point, if we were to repeat a heart catheterization, this would result in further injury of the kidney and need for long-term dialysis would be more certain. At this time, she is pain free. Her troponin but I would be concerned about in-stent thrombosis. I would repeat an echocardiogram. 2. No plan to take to the coronary catheterization lab at this time. 3. She had emergent dialysis overnight. We will defer to Dr. Jackson as to whether she needs further dialysis versus just try to diurese her with Lasix. Thank you for letting us to participate in the care of your patient, we will follow. Job ID: [id number]
[2019-09-03] MEDS ORDERED: Non-Formulary Item 1 EACH (Insulin Glargine,Hum.Rec.Anlog [Lantus Solostar] 60 UNIT) SQ SCH (21:00)
[2019-09-03] MEDS: Atorvastatin Calcium 40 MG TAB PO SCH (21:02)
[2019-09-03] MEDS: Insulin Glargine 60 UNITS in Pre-Filled Syringe 1 EACH SC SCH (21:05)
[2019-09-03] MEDS: Lidocaine Patch Removal 1 EACH TOP SCH (21:20)
[2019-09-04] MEDS ORDERED: Digoxin 0.5 MG/2 ML AMP SLOW IVP SCH (00:01)
[2019-09-04] MEDS ORDERED: Diltiazem 125 MG in Sodium Chloride 0.9% 100 ML IVPB SCH (02:30)
[2019-09-04 09:33] LABS: #Basophils 0.1 thou/uL (0.0-0.2); #Eosinphils 0.1 thou/uL (0.0-0.7); #Lymphocytes 1.7 thou/uL (1.20-3.40); #Monocytes 0.8 thou/uL (0.11-0.59); #Neutrophils 5.3 thou/uL (1.40-6.50); %Basophils 0.6 % (0.0-1.0); %Eosinophils 1.2 % (0.0-10.0); %Lymphocytes 21.2 % (21.0-51.0); %Monocytes 10.4 % (0.0-10.0); %Neutrophils 66.5 % (42.0-75.0); Hemoglobin 7.5 g/dL (12.0-16.0); Mean Corpuscular HGB CONC 31.7 g/dL (32.0-36.0); Mean Corpuscular Hemoglobin 28.3 pg (27.0-31.0); Mean Corpuscular Volume 89.4 fL (78.0-98.0); Mean Platelet Volume 8.9 fL (7.4-10.4); Platelet Count 233 thou/uL (130-400); RBC Distribution Width 14.2 % (11.5-14.5); Red Blood Cell (RBC) Count 2.63 mill/uL (4.20-5.40); White Blood Cell (WBC) Count 7.9 thou/uL (4.8-10.8)
[2019-09-04] MEDS ORDERED: Heparin 10,000 UNITS/ 10 ML VIAL ONE (09:40)
[2019-09-04 09:51] LABS: CKMB 1.2 ng/mL (0-6.6)
[2019-09-04 09:54] LABS: ALT (SGPT) 15 U/L (8-55); AST (SGOT) 12 U/L (5-34); Albumin 3.3 g/dL (3.4-4.8); Alkaline Phosphatase 101 U/L (40-110); Anion Gap 16 mmol/L (10-20); BUN (Urea Nitrogen) 53 mg/dL (9.8-20.1); Bilirubin, Total 0.5 mg/dL (0.2-1.2); CK (CPK) 27 U/L (29-168); Calc. Creatinine Clearance 39 mL/min (70-130); Calcium 9.2 mg/dL (7.8-10.44); Carbon Dioxide 25 mmol/L (23-31); Chloride 102 mmol/L (98-107); Estimated GFR-MDRD 20; Globulin 2.7 g/dL (2.4-3.5); Glucose 140 mg/dL (80-115); Potassium 4.6 mmol/L (3.5-5.1); Sodium 138 mmol/L (136-145); Troponin I 0.534 ng/mL (< 0.028)
[2019-09-04] MEDS: Apixaban 2.5 MG TAB PO SCH ×2 (09:56→21:15)
[2019-09-04] MEDS: Carvedilol 6.25 MG TAB PO SCH ×2 (09:56→21:16)
[2019-09-04] MEDS: Aspirin 81 mg Enteric Coated Tablet PO SCH (09:56)
[2019-09-04] MEDS: Pregabalin 50 MG CAP PO SCH ×2 (09:56→21:18)
[2019-09-04] MEDS: Escitalopram Oxalate 20 mg Tablet PO SCH (09:57)
[2019-09-04] MEDS: Multivit, Therapeutic 1 TAB PO SCH (09:57)
[2019-09-04] MEDS: hydrALAZINE 25 MG TAB PO SCH ×2 (09:57→21:16)
[2019-09-04] MEDS: Isosorbide Dinitrate 5 MG TAB PO SCH ×2 (09:57→21:15)
[2019-09-04] MEDS: Lidocaine 5% Patch TD SCH (09:57)
[2019-09-04] MEDS: Levothyroxine Sodium 50 MCG TAB PO SCH (09:57)
[2019-09-04] MEDS: Clopidogrel Bisulfate 75 MG TAB PO SCH (09:57)
--- NOTE | 2019-09-04 11:36 | PRG ---
DATE OF SERVICE: 09/04/2019 SUBJECTIVE: This is a 63-year-old female being seen for end-stage renal disease. The patient states she did not and has dyspnea. PHYSICAL EXAMINATION: General: The patient is resting well. Vital Signs: Afebrile, pulse 117, blood pressure 135/58. HEENT: Head normocephalic and atraumatic. Eyes intact, no ulcers. Nose intact, no ulcers. Ears intact, no ulcers. NECK: Supple. No JVD. CHEST: Symmetrical and clear. CARDIOVASCULAR: Shows S1 and S2, no rub, no murmur. GASTROINTESTINAL: Abdomen is soft, bowel sounds positive. EXTREMITIES: Show no edema or ulcers. SKIN: Shows no rash or petechiae. MUSCULOSKELETAL: Shows no joint swelling or stiffness. GENITOURINARY: Shows no Howard or CVA tenderness. NEUROLOGIC: Motor intact. Cranial nerves intact. LABORATORY DATA: Reviewed. ASSESSMENT AND PLAN: 1. Stage 6 chronic kidney disease dialysis. Ordered a 24-hour urine for creatinine clearance. 2. Congestive heart failure, management per primary team. 3. Hypertension, stable. 4. Anemia, plan transfusion with dialysis. Job ID: [id number]
--- NOTE | 2019-09-04 14:33 | PDOC.HOSPP ---
- Subjective Encounter Date: 09/04/19 Encounter Time: 08:00 Subjective: Patient seen and examined. No new complaints. No overnight events. last night pt had palpitation and afib with RVR, cardizem drip started - Objective Vital Signs & Weight: Vital Signs (12 hours) Temp Pulse Resp BP Pulse Ox 09/04/19 11:10 98.6 F 104 H 18 134/60 98 09/04/19 07:28 97.6 F 117 H 18 122/59 L 95 09/04/19 03:00 126 H 135/58 L 09/04/19 02:50 97.7 F 133 H 20 126/64 96 Weight Weight 221 lb 5.506 oz I&O: 09/03/19 09/04/19 09/05/19 06:59 06:59 06:59 Intake Total 240 840 Output Total 500 Balance -260 840 Result Diagrams: 09/04/19 09:03 09/04/19 09:03 Additional Labs: Accuchecks 09/04/19 09/04/19 09/03/19 11:19 06:23 20:21 POC Glucose 180 H 137 H 253 H 09/03/19 16:57 POC Glucose 234 H Radiology Reviewed by me: Yes EKG Reviewed by me: Yes Hospitalist ROS - Review of Systems ENT: denies: ear pain, ear discharge, nose pain, nose discharge, nose congestion , mouth pain, mouth swelling, throat pain, throat swelling, other Respiratory: denies: cough, dry, shortness of breath, hemoptysis, SOB with excertion, pleuritic pain, sputum, wheezing, other Cardiovascular: denies: chest pain, palpitations, orthopnea, paroxysmal noc. dyspnea, edema, light headedness, other Gastrointestinal: denies: nausea, vomiting, abdominal pain, diarrhea, constipation, melena, hematochezia, other Genitourinary: denies: dysuria, frequency, incontinence, hematuria, retention, other Musculoskeletal: denies: neck pain, shoulder pain, arm pain, back pain, hand pain, leg pain, foot pain, other - Medication Medications: Active Medications Generic Name Dose Route Start Last Admin Trade Name Freq PRN Reason Stop Dose Admin Apixaban 2.5 mg 09/03/19 09:00 09/04/19 09:56 Eliquis PO 2.5 mg BID CECILIA Administration Aspirin 81 mg 09/03/19 09:00 09/04/19 09:56 Ecotrin PO 81 mg DAILY CECILIA Administration Atorvastatin Calcium 40 mg 09/03/19 21:00 09/03/19 21:02 Lipitor PO 40 mg HS COUNT INCLUDES THE [facility] Administration Carvedilol 12.5 mg 09/03/19 09:00 09/04/19 09:56 Coreg PO 12.5 mg BID CECILIA Administration Clopidogrel Bisulfate 75 mg 09/03/19 09:00 09/04/19 09:57 Plavix PO 75 mg DAILY COUNT INCLUDES THE [facility] Administration Escitalopram Oxalate 20 mg 09/03/19 09:00 09/04/19 09:57 Lexapro PO 20 mg DAILY CECILIA Administration Hydralazine HCl 25 mg 09/03/19 09:00 09/04/19 09:57 Apresoline PO 25 mg BID COUNT INCLUDES THE [facility] Administration Insulin Glargine 60 units/ 0.6 mls @ 0 mls/hr 09/03/19 21:00 09/03/19 21:05 Miscellaneous Medication SC 0.6 mls HS COUNT INCLUDES THE [facility] Administration Diltiazem HCl 125 mg/ Sodium 125 mls @ 5 mls/hr 09/04/19 02:30 09/04/19 02:56 Chloride IVPB 125 mls INF COUNT INCLUDES THE [facility] Administration Protocol 5 MG/HR Insulin Human Lispro 0 units 09/02/19 20:58 09/03/19 17:41 Humalog SC 3 unit .MILD SLIDING SCALE PRN Administration Mild Correctional Scale Insulin Human Lispro 0 units 09/02/19 20:58 09/03/19 23:37 Humalog SC 3 unit .BEDTIME SLIDING SC PRN Administration Bedtime Correctional Scale Isosorbide Dinitrate 5 mg 09/03/19 09:00 09/04/19 09:57 Isordil PO 5 mg BID COUNT INCLUDES THE [facility] Administration Levothyroxine Sodium 50 mcg 09/03/19 09:00 09/04/19 09:57 Synthroid PO 50 mcg DAILY COUNT INCLUDES THE [facility] Administration Lidocaine 1 patch 09/03/19 09:00 09/04/19 09:57 Lidoderm 5% Patch TD 1 patch DAILY COUNT INCLUDES THE [facility] Administration Miscellaneous Medication 1 each 09/03/19 21:00 09/03/19 21:20 Lidocaine Patch Removal TOP Not Given 2100 COUNT INCLUDES THE [facility] Multivitamins 1 tab 09/03/19 09:00 09/04/19 09:57 Theragran PO 1 tab DAILY CECILIA Administration Pregabalin 100 mg 09/03/19 09:00 09/04/19 09:56 Lyrica PO 100 mg BID CECILIA Administration Sodium Chloride 10 ml 09/02/19 20:30 09/03/19 21:05 Flush - Normal Saline IVF 10 ml Q12HR PRN Administration Saline Flush Sodium Chloride 10 ml 09/02/19 20:30 09/04/19 02:53 Flush - Normal Saline IVF 10 ml PRN PRN Administration Saline Flush - Exam General Appearance: NAD, awake alert Eye: PERRL, anicteric sclera ENT: normocephalic atraumatic, no oropharyngeal lesions Neck: supple, symmetric, no JVD, no thyromegaly Heart: RRR, no murmur, no gallops, no rubs Respiratory: CTAB, no wheezes, no rales, no ronchi Gastrointestinal: soft, non-tender, non-distended, normal bowel sounds Extremities: no cyanosis, no clubbing Skin: normal turgor, no lesions Neurological: no focal deficits Musculoskeletal: normal tone, normal strength Psychiatric: normal affect, normal behavior Hosp A/P (1) Atrial fibrillation with RVR Code(s): I48.91 - UNSPECIFIED ATRIAL FIBRILLATION Status: Acute (2) Pulmonary edema cardiac cause Code(s): I50.1 - LEFT VENTRICULAR FAILURE, UNSPECIFIED Status: Acute (3) Type [address] elevation Code(s): I21.A1 - MYOCARDIAL INFARCTION TYPE 2 Status: Acute (4) Anemia, normocytic normochromic Code(s): D64.9 - ANEMIA, UNSPECIFIED Status: Chronic (5) CAD (coronary artery disease) Code(s): I25.10 - ATHSCL HEART DISEASE OF [place] CORONARY ARTERY W/O ANG PCTRS Status: Chronic Qualifiers: Coronary Disease-Associated Artery/Lesion type: [place] artery [place] vs. transplanted heart: [place] heart Associated angina: with stable angina Qualified Code(s): I25.118 - Atherosclerotic heart disease of [place] coronary artery with other forms of angina pectoris (6) COPD (chronic obstructive pulmonary disease) Status: Chronic Qualifiers: COPD type: chronic bronchitis (7) Chronic kidney disease, stage 3 Code(s): N18.3 - CHRONIC KIDNEY DISEASE, STAGE 3 (MODERATE) Status: Chronic (8) Chronic stage c diastolic heart failure Code(s): I50.32 - CHRONIC DIASTOLIC (CONGESTIVE) HEART FAILURE Status: Chronic (9) DM type 2 (diabetes mellitus, type 2) Status: Chronic Qualifiers: Diabetes mellitus terminal superintendent insulin use: with terminal superintendent use Diabetes mellitus complication status: with kidney complications Diabetes mellitus complication detail: with chronic kidney disease Chronic kidney disease stage : stage 3 (moderate) Qualified Code(s): E11.22 - Type 2 diabetes mellitus with diabetic chronic kidney disease; N18.3 - Chronic kidney disease, stage 3 ( moderate); Z79.4 - termite technician (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 of insulin (10) Depression Code(s): F32.9 - MAJOR DEPRESSIVE DISORDER, SINGLE EPISODE, UNSPECIFIED Status : Chronic Qualifiers: Depression Type: major depressive disorder (11) Dyslipidemia Code(s): E78.5 - HYPERLIPIDEMIA, UNSPECIFIED Status: Chronic (12) HTN (hypertension) Code(s): I10 - ESSENTIAL (PRIMARY) HYPERTENSION Status: Chronic Qualifiers: Hypertension type: essential hypertension Qualified Code(s): I10 - Essential (primary) hypertension (13) Ischemic cardiomyopathy Code(s): I25.5 - ISCHEMIC CARDIOMYOPATHY Status: Chronic (14) Paroxysmal atrial fibrillation Code(s): I48.0 - PAROXYSMAL ATRIAL FIBRILLATION Status: Chronic (15) Pulmonary HTN Code(s): I27.20 - PULMONARY HYPERTENSION, UNSPECIFIED Status: Chronic - Plan old records reviewed/req s/p HD last night on room air cardio to see medication reviewed and continue to provide symptomatic care 09/04/19 will change to inpt status continue cardizem drip for rate control cardiology following discussed with pt about test result nephrology to decide about terminal superintendent dialysis
--- NOTE | 2019-09-04 16:46 | EKG ---
Test Reason : STAT Blood Pressure : / mmHG Vent. Rate : 123 BPM Atrial Rate : 055 BPM P-R Int : 000 ms QRS Dur : 142 ms QT Int : 382 ms P-R-T Axes : 000 057 229 degrees QTc Int : 546 ms Atrial fibrillation with rapid ventricular response Left bundle branch block Abnormal ECG When compared with ECG of 02-SEP-2019 20:29, (Unconfirmed) Atrial fibrillation has replaced Sinus rhythm Inverted T waves have replaced nonspecific T wave abnormality in Inferior leads Confirmed by DR. Sofia POLO (3) on 09/04/2019 4:45:50 PM Referred By: Confirmed By:DR. Sofia POLO
--- NOTE | 2019-09-04 19:00 | PDOC.CPN ---
- Subjective Date: 09/04/19 Time: 18:58 Interval history: I saw just after HD finished. She states she feels much better now. - Review of Systems General: denies: fever/chills, weight/appetite/sleep changes, night sweats, fatigue Respiratory: denies: cough, congestion, shortness of breath, exercise intolerance Cardiovascular: denies: chest pain, palpitation, edema, paroxysmal nocturnal dyspnea, orthopnea Gastrointestinal: denies: nausea, vomiting, diarrhea, constipation, abd pain, GI bleeding Musculoskeletal: denies: pain, tenderness, stiffness, swelling, arthritis/ arthralgias Neurological: denies: numbness, syncope, seizure, weakness - Objective Allergies/Adverse Reactions: Allergies Allergy/AdvReac Type Severity Reaction Status Date / Time latex Allergy Verified 01/24/19 22:40 meperidine [From Demerol] Allergy Verified 01/24/19 22:40 morphine Allergy Verified 01/24/19 22:40 aspirin AdvReac Verified 04/27/19 01:49 Visit Medications: Current Medications Acetaminophen (Tylenol) 650 mg PO Q4H PRN PRN Reason: Headache/Fever or Pain Alprazolam (Xanax) 1 mg PO TID PRN PRN Reason: Anxiety Apixaban (Eliquis) 2.5 mg PO BID [facility] Last Admin: 09/04/19 09:56 Dose: 2.5 mg Aspirin (Ecotrin) 81 mg PO DAILY [facility] Last Admin: 09/04/19 09:56 Dose: 81 mg Atorvastatin Calcium (Lipitor) 40 mg PO HS [facility] Last Admin: 09/03/19 21:02 Dose: 40 mg Carvedilol (Coreg) 12.5 mg PO BID [facility] Last Admin: 09/04/19 09:56 Dose: 12.5 mg Clopidogrel Bisulfate (Plavix) 75 mg PO DAILY [facility] Last Admin: 09/04/19 09:57 Dose: 75 mg Dextrose/Water (Dextrose 50%) 25 gm SLOW IVP PRN PRN PRN Reason: Hypoglycemia Escitalopram Oxalate (Lexapro) 20 mg PO DAILY [facility] Last Admin: 09/04/19 09:57 Dose: 20 mg Fluticasone Propionate (Flonase Nasal [place]) 0 gm NASAL PRN PRN PRN Reason: nasal stuffiness Glucagon (Glucagon) 1 mg IM PRN PRN PRN Reason: Hypoglycemia Hydralazine HCl (Apresoline) 25 mg PO BID [facility] Last Admin: 09/04/19 09:57 Dose: 25 mg Dextrose/Water (D5w) 1,000 mls @ 0 mls/hr IV .Q0M PRN PRN Reason: Hypoglycemia Insulin Glargine 60 units/ (Miscellaneous Medication) 0.6 mls @ 0 mls/hr SC HS [facility] Last Admin: 09/03/19 21:05 Dose: 0.6 mls Insulin Human Lispro (Humalog) 0 units SC .MILD SLIDING SCALE PRN PRN Reason: Mild Correctional Scale Last Admin: 09/03/19 17:41 Dose: 3 unit Insulin Human Lispro (Humalog) 0 units SC .BEDTIME SLIDING SC PRN PRN Reason: Bedtime Correctional Scale Last Admin: 09/03/19 23:37 Dose: 3 unit Isosorbide Dinitrate (Isordil) 5 mg PO BID [facility] Last Admin: 09/04/19 09:57 Dose: 5 mg Levothyroxine Sodium (Synthroid) 50 mcg PO DAILY [facility] Last Admin: 09/04/19 09:57 Dose: 50 mcg Lidocaine (Lidoderm 5% Patch) 1 patch TD DAILY [facility] Last Admin: 09/04/19 09:57 Dose: 1 patch Miscellaneous Medication (Lidocaine Patch Removal) 1 each TOP 2100 [facility] Last Admin: 09/03/19 21:20 Dose: Not Given Multivitamins (Theragran) 1 tab PO DAILY [facility] Last Admin: 09/04/19 09:57 Dose: 1 tab Nitroglycerin (Nitrostat) 0.4 mg PO Q5MIN PRN PRN Reason: Chest Pain Pregabalin (Lyrica) 100 mg PO BID [facility] Last Admin: 09/04/19 09:56 Dose: 100 mg Sodium Chloride (Flush - Normal Saline) 10 ml IVF Q12HR PRN PRN Reason: Saline Flush Last Admin: 09/03/19 21:05 Dose: 10 ml Sodium Chloride (Flush - Normal Saline) 10 ml IVF PRN PRN PRN Reason: Saline Flush Last Admin: 09/04/19 02:53 Dose: 10 ml Vital Signs & Weight: Vital Signs Temp Pulse Pulse Resp BP BP Pulse Ox 09/04/19 18:42 98.2 F 84 16 131/61 95 09/04/19 16:15 98.4 F 80 18 138/47 L 09/04/19 16:00 98.4 F 80 18 129/59 L 09/04/19 15:45 98.6 F 80 18 128/56 L 09/04/19 15:25 98.6 F 80 18 130/48 L 09/04/19 14:59 97.9 F 111 H 18 137/62 97 09/04/19 11:10 98.6 F 104 H 18 134/60 98 09/04/19 09:50 95 09/04/19 07:28 97.6 F 117 H 18 122/59 L 95 Weight 221 lb 5.506 oz - Physical Exam General: alert & oriented x3 HEENT: mucus membranes moist Neck: supple neck Cardiac: regular rate and rhythm Lungs: clear to auscultation Neuro: grossly intact Abdomen: active bowel sounds Extremities: no edema Skin: clear Musculoskeletal: no pain - Labs Result Diagrams: 09/04/19 09:03 09/04/19 09:03 Troponin/CKMB CK-MB (CK-2) 1.2 ng/mL (0-6.6) 09/04/19 09:03 Troponin I 0.534 ng/mL (< 0.028) H* 09/04/19 09:03 - Telemetry Sinus rhythms and dysrhythmias: sinus rhythm Supraventricular conduction: atrial fibrillation - Assessment/Plan Assessment/Plan: 1. NSTEMI,. likely demand ischemia as she rivero sno ECG changes and has no chest pain. 2. PATRICA on CKD, on HD now per nephrology 3. CAD. 4. Paroxysmal afib PLAN: - Continue Eliquis for stroke prophylaxis - Continue Eliquis, Plavix and ASA for one month and then Plavix with Eliquis. - Nephrology deciding weather her HD will need to be chronic. Ms. Mendez wants it as she feels much better now than she has ever felt in the past few months with HD. - Will follow.
[2019-09-04] MEDS: Atorvastatin Calcium 40 MG TAB PO SCH (21:16)
[2019-09-04] MEDS: Insulin Glargine 60 UNITS in Pre-Filled Syringe 1 EACH SC SCH (21:20)
[2019-09-04] MEDS: Lidocaine Patch Removal 1 EACH TOP SCH (21:24)
[2019-09-05] MEDS: Isosorbide Dinitrate 5 MG TAB PO SCH ×2 (08:35→20:19)
[2019-09-05] MEDS: Aspirin 81 mg Enteric Coated Tablet PO SCH (08:35)
[2019-09-05] MEDS: hydrALAZINE 25 MG TAB PO SCH ×2 (08:35→20:20)
[2019-09-05] MEDS: Pregabalin 50 MG CAP PO SCH ×2 (08:36→20:18)
[2019-09-05] MEDS: Escitalopram Oxalate 20 mg Tablet PO SCH (08:37)
[2019-09-05] MEDS: Levothyroxine Sodium 50 MCG TAB PO SCH (08:37)
[2019-09-05] MEDS: Carvedilol 6.25 MG TAB PO SCH ×2 (08:37→20:19)
[2019-09-05] MEDS: Multivit, Therapeutic 1 TAB PO SCH (08:37)
[2019-09-05] MEDS: Clopidogrel Bisulfate 75 MG TAB PO SCH (08:37)
[2019-09-05] MEDS: Apixaban 2.5 MG TAB PO SCH ×2 (08:37→20:20)
[2019-09-05] MEDS: Lidocaine 5% Patch TD SCH (08:38)
--- NOTE | 2019-09-05 08:51 | PRG ---
DATE OF SERVICE: 09/05/2019 SUBJECTIVE: A 63-year-old female being seen for end-stage renal disease. The patient denied nausea, vomiting, or chest pain. OBJECTIVE: GENERAL: The patient is awake and alert. VITAL SIGNS: Afebrile, pulse 77, breathing at 16, and blood pressure 135/60. HEENT: Head normocephalic and atraumatic. Eyes intact, no ulcers. Nose intact, no ulcers. Ears intact, no ulcers. NECK: Supple. No JVD. CHEST: Symmetrical and clear. CARDIOVASCULAR: Shows S1 and S2, no rub, no murmur. GASTROINTESTINAL: Abdomen is soft, bowel sounds positive. EXTREMITIES: Show no edema or ulcers. SKIN: Shows no rash or petechiae. MUSCULOSKELETAL: Shows no joint swelling or stiffness. GENITOURINARY: Shows no Howard or CVA tenderness. NEUROLOGIC: Motor intact. Cranial nerves intact. LABORATORY DATA: Reviewed. ASSESSMENT AND PLAN: 1. Stage 3 chronic kidney disease. Plan dialysis per schedule today. 2. Hypertension, stable. 3. Anemia, stable. 4. Medications based on GFR are appropriate. Job ID: [id number]
[2019-09-05 09:29] LABS: Hemoglobin 8.6 g/dL (12.0-16.0)
[2019-09-05] MEDS ORDERED: Heparin 10,000 UNITS/ 10 ML VIAL ONE (09:46)
--- NOTE | 2019-09-05 13:03 | PDOC.HOSPP ---
- Subjective Encounter Date: 09/05/19 Encounter Time: 07:00 Subjective: Patient seen and examined. No new complaints. No overnight events pt feels better, rate controlled - Objective Vital Signs & Weight: Vital Signs (12 hours) Temp Pulse Resp BP BP BP Pulse Ox 09/05/19 11:00 97.7 F 76 20 143/63 H 98 09/05/19 09:49 100/55 L 09/05/19 08:37 131/60 09/05/19 08:35 77 09/05/19 07:44 98.3 F 77 18 135/63 96 09/05/19 04:28 97.5 F L 80 20 132/64 98 Weight Weight 216 lb 4.375 oz I&O: 09/04/19 09/05/19 09/06/19 06:59 06:59 06:59 Intake Total 840 590 Output Total 400 Balance 840 190 Result Diagrams: 09/05/19 09:08 09/04/19 09:03 Additional Labs: Accuchecks 09/05/19 09/05/19 09/04/19 11:06 04:33 20:34 POC Glucose 137 H 132 H 215 H 09/04/19 18:18 POC Glucose 161 H EKG Reviewed by me: Yes Hospitalist ROS - Review of Systems ENT: denies: ear pain, ear discharge, nose pain, nose discharge, nose congestion , mouth pain, mouth swelling, throat pain, throat swelling, other Respiratory: denies: cough, dry, shortness of breath, hemoptysis, SOB with excertion, pleuritic pain, sputum, wheezing, other Cardiovascular: denies: chest pain, palpitations, orthopnea, paroxysmal noc. dyspnea, edema, light headedness, other Gastrointestinal: denies: nausea, vomiting, abdominal pain, diarrhea, constipation, melena, hematochezia, other Genitourinary: denies: dysuria, frequency, incontinence, hematuria, retention, other Musculoskeletal: denies: neck pain, shoulder pain, arm pain, back pain, hand pain, leg pain, foot pain, other - Medication Medications: Active Medications Generic Name Dose Route Start Last Admin Trade Name Freq PRN Reason Stop Dose Admin Apixaban 2.5 mg 09/03/19 09:00 09/05/19 08:37 Eliquis PO 2.5 mg BID [facility] Administration Aspirin 81 mg 09/03/19 09:00 09/05/19 08:35 Ecotrin PO 81 mg DAILY [facility] Administration Atorvastatin Calcium 40 mg 09/03/19 21:00 09/04/19 21:16 Lipitor PO 40 mg HS [facility] Administration Carvedilol 12.5 mg 09/03/19 09:00 09/05/19 08:37 Coreg PO 12.5 mg BID [facility] Administration Clopidogrel Bisulfate 75 mg 09/03/19 09:00 09/05/19 08:37 Plavix PO 75 mg DAILY [facility] Administration Escitalopram Oxalate 20 mg 09/03/19 09:00 09/05/19 08:37 Lexapro PO 20 mg DAILY [facility] Administration Hydralazine HCl 25 mg 09/03/19 09:00 09/05/19 08:35 Apresoline PO 25 mg BID [facility] Administration Insulin Glargine 60 units/ 0.6 mls @ 0 mls/hr 09/03/19 21:00 09/04/19 21:20 Miscellaneous Medication SC 0.6 mls HS [facility] Administration Insulin Human Lispro 0 units 09/02/19 20:58 09/03/19 17:41 Humalog SC 3 unit .MILD SLIDING SCALE PRN Administration Mild Correctional Scale Insulin Human Lispro 0 units 09/02/19 20:58 09/03/19 23:37 Humalog SC 3 unit .BEDTIME SLIDING SC PRN Administration Bedtime Correctional Scale Isosorbide Dinitrate 5 mg 09/03/19 09:00 09/05/19 08:35 Isordil PO 5 mg BID [facility] Administration Levothyroxine Sodium 50 mcg 09/03/19 09:00 09/05/19 08:37 Synthroid PO 50 mcg DAILY [facility] Administration Lidocaine 1 patch 09/03/19 09:00 09/05/19 08:38 Lidoderm 5% Patch TD 1 patch DAILY [facility] Administration Miscellaneous Medication 1 each 09/03/19 21:00 09/04/19 21:24 Lidocaine Patch Removal TOP Not Given 2100 [facility] Multivitamins 1 tab 09/03/19 09:00 09/05/19 08:37 Theragran PO 1 tab DAILY [facility] Administration Pregabalin 100 mg 09/03/19 09:00 09/05/19 08:36 Lyrica PO 100 mg BID [facility] Administration Sodium Chloride 10 ml 09/02/19 20:30 09/03/19 21:05 Flush - Normal Saline IVF 10 ml Q12HR PRN Administration Saline Flush Sodium Chloride 10 ml 09/02/19 20:30 09/04/19 02:53 Flush - Normal Saline IVF 10 ml PRN PRN Administration Saline Flush - Exam General Appearance: NAD, awake alert Eye: PERRL, anicteric sclera ENT: normocephalic atraumatic, no oropharyngeal lesions Neck: supple, symmetric, no JVD, no thyromegaly Heart: RRR, no murmur, no gallops, no rubs Respiratory: CTAB, no wheezes, no rales, no ronchi Gastrointestinal: soft, non-tender, non-distended, normal bowel sounds Gastrointestinal - other findings: obesity+ Extremities: no cyanosis, no clubbing Skin: normal turgor, no lesions Neurological: no focal deficits Musculoskeletal: normal tone, normal strength Psychiatric: normal affect, normal behavior Hosp A/P (1) Atrial fibrillation with RVR Code(s): I48.91 - UNSPECIFIED ATRIAL FIBRILLATION Status: Acute (2) Pulmonary edema cardiac cause Code(s): I50.1 - LEFT VENTRICULAR FAILURE, UNSPECIFIED Status: Acute (3) Type [address] elevation Code(s): I21.A1 - MYOCARDIAL INFARCTION TYPE 2 Status: Acute (4) Anemia, normocytic normochromic Code(s): D64.9 - ANEMIA, UNSPECIFIED Status: Chronic (5) CAD (coronary artery disease) Code(s): I25.10 - ATHSCL HEART DISEASE OF [place] CORONARY ARTERY W/O ANG PCTRS Status: Chronic Qualifiers: Coronary Disease-Associated Artery/Lesion type: [place] artery [place] vs. transplanted heart: [place] heart Associated angina: with stable angina Qualified Code(s): I25.118 - Atherosclerotic heart disease of [place] coronary artery with other forms of angina pectoris (6) COPD (chronic obstructive pulmonary disease) Status: Chronic Qualifiers: COPD type: chronic bronchitis (7) Chronic kidney disease, stage 3 Code(s): N18.3 - CHRONIC KIDNEY DISEASE, STAGE 3 (MODERATE) Status: Chronic (8) Chronic stage c diastolic heart failure Code(s): I50.32 - CHRONIC DIASTOLIC (CONGESTIVE) HEART FAILURE Status: Chronic (9) DM type 2 (diabetes mellitus, type 2) Status: Chronic Qualifiers: 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 Diabetes mellitus complication status: with kidney complications Diabetes mellitus complication detail: with chronic kidney disease Chronic kidney disease stage : stage 3 (moderate) Qualified Code(s): E11.22 - Type 2 diabetes mellitus with diabetic chronic kidney disease; N18.3 - Chronic kidney disease, stage 3 ( moderate); Z79.4 - assisted (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 of insulin (10) Depression Code(s): F32.9 - MAJOR DEPRESSIVE DISORDER, SINGLE EPISODE, UNSPECIFIED Status : Chronic Qualifiers: Depression Type: major depressive disorder (11) Dyslipidemia Code(s): E78.5 - HYPERLIPIDEMIA, UNSPECIFIED Status: Chronic (12) HTN (hypertension) Code(s): I10 - ESSENTIAL (PRIMARY) HYPERTENSION Status: Chronic Qualifiers: Hypertension type: essential hypertension Qualified Code(s): I10 - Essential (primary) hypertension (13) Ischemic cardiomyopathy Code(s): I25.5 - ISCHEMIC CARDIOMYOPATHY Status: Chronic (14) Paroxysmal atrial fibrillation Code(s): I48.0 - PAROXYSMAL ATRIAL FIBRILLATION Status: Chronic (15) Pulmonary HTN Code(s): I27.20 - PULMONARY HYPERTENSION, UNSPECIFIED Status: Chronic - Plan old records reviewed/req s/p HD last night on room air cardio to see medication reviewed and continue to provide symptomatic care 09/04/19 will change to inpt status continue cardizem drip for rate control cardiology following discussed with pt about test result nephrology to decide about skilled nursing dialysis 09/05/19 cardiac cordova now stable as per cardiology nephrology to continue HD as per schedule medication reviewed, ambulate as tolerated
--- NOTE | 2019-09-05 14:48 | PDOC.CPN ---
- Subjective Date: 09/05/19 Time: 14:46 Interval history: No new issues. Feeling better. I am seeing her during dialysis today. - Review of Systems General: denies: fever/chills, weight/appetite/sleep changes, night sweats, fatigue Respiratory: denies: cough, congestion, shortness of breath, exercise intolerance Cardiovascular: denies: chest pain, palpitation, edema, paroxysmal nocturnal dyspnea, orthopnea Gastrointestinal: denies: nausea, vomiting, diarrhea, constipation, abd pain, GI bleeding Musculoskeletal: denies: pain, tenderness, stiffness, swelling, arthritis/ arthralgias Neurological: denies: numbness, syncope, seizure, weakness - Objective Allergies/Adverse Reactions: Allergies Allergy/AdvReac Type Severity Reaction Status Date / Time latex Allergy Verified 01/24/19 22:40 meperidine [From Demerol] Allergy Verified 01/24/19 22:40 morphine Allergy Verified 01/24/19 22:40 aspirin AdvReac Verified 04/27/19 01:49 Visit Medications: Current Medications Acetaminophen (Tylenol) 650 mg PO Q4H PRN PRN Reason: Headache/Fever or Pain Alprazolam (Xanax) 1 mg PO TID PRN PRN Reason: Anxiety Apixaban (Eliquis) 2.5 mg PO BID [facility] Last Admin: 09/05/19 08:37 Dose: 2.5 mg Aspirin (Ecotrin) 81 mg PO DAILY [facility] Last Admin: 09/05/19 08:35 Dose: 81 mg Atorvastatin Calcium (Lipitor) 40 mg PO HS [facility] Last Admin: 09/04/19 21:16 Dose: 40 mg Carvedilol (Coreg) 12.5 mg PO BID [facility] Last Admin: 09/05/19 08:37 Dose: 12.5 mg Clopidogrel Bisulfate (Plavix) 75 mg PO DAILY [facility] Last Admin: 09/05/19 08:37 Dose: 75 mg Dextrose/Water (Dextrose 50%) 25 gm SLOW IVP PRN PRN PRN Reason: Hypoglycemia Escitalopram Oxalate (Lexapro) 20 mg PO DAILY [facility] Last Admin: 09/05/19 08:37 Dose: 20 mg Fluticasone Propionate (Flonase Nasal [place]) 0 gm NASAL PRN PRN PRN Reason: nasal stuffiness Glucagon (Glucagon) 1 mg IM PRN PRN PRN Reason: Hypoglycemia Hydralazine HCl (Apresoline) 25 mg PO BID [facility] Last Admin: 09/05/19 08:35 Dose: 25 mg Dextrose/Water (D5w) 1,000 mls @ 0 mls/hr IV .Q0M PRN PRN Reason: Hypoglycemia Insulin Glargine 60 units/ (Miscellaneous Medication) 0.6 mls @ 0 mls/hr SC HS [facility] Last Admin: 09/04/19 21:20 Dose: 0.6 mls Insulin Human Lispro (Humalog) 0 units SC .MILD SLIDING SCALE PRN PRN Reason: Mild Correctional Scale Last Admin: 09/03/19 17:41 Dose: 3 unit Insulin Human Lispro (Humalog) 0 units SC .BEDTIME SLIDING SC PRN PRN Reason: Bedtime Correctional Scale Last Admin: 09/03/19 23:37 Dose: 3 unit Isosorbide Dinitrate (Isordil) 5 mg PO BID [facility] Last Admin: 09/05/19 08:35 Dose: 5 mg Levothyroxine Sodium (Synthroid) 50 mcg PO DAILY [facility] Last Admin: 09/05/19 08:37 Dose: 50 mcg Lidocaine (Lidoderm 5% Patch) 1 patch TD DAILY [facility] Last Admin: 09/05/19 08:38 Dose: 1 patch Miscellaneous Medication (Lidocaine Patch Removal) 1 each TOP 2100 [facility] Last Admin: 09/04/19 21:24 Dose: Not Given Multivitamins (Theragran) 1 tab PO DAILY [facility] Last Admin: 09/05/19 08:37 Dose: 1 tab Nitroglycerin (Nitrostat) 0.4 mg PO Q5MIN PRN PRN Reason: Chest Pain Pregabalin (Lyrica) 100 mg PO BID [facility] Last Admin: 09/05/19 08:36 Dose: 100 mg Sodium Chloride (Flush - Normal Saline) 10 ml IVF Q12HR PRN PRN Reason: Saline Flush Last Admin: 09/03/19 21:05 Dose: 10 ml Sodium Chloride (Flush - Normal Saline) 10 ml IVF PRN PRN PRN Reason: Saline Flush Last Admin: 09/04/19 02:53 Dose: 10 ml Vital Signs & Weight: Vital Signs Temp Pulse Resp BP BP BP Pulse Ox 09/05/19 11:00 97.7 F 76 20 143/63 H 98 09/05/19 09:49 100/55 L 02/28/20 08:37 131/60 09/05/19 08:35 77 09/05/19 07:44 98.3 F 77 18 135/63 96 09/05/19 04:28 97.5 F L 80 20 132/64 98 Weight 216 lb 4.375 oz - Physical Exam General: alert & oriented x3 HEENT: mucus membranes moist Neck: supple neck Cardiac: regular rate and rhythm Lungs: clear to auscultation Neuro: grossly intact Abdomen: unremarkable Extremities: no edema Skin: clear Musculoskeletal: no pain - Labs Result Diagrams: 09/05/19 09:08 09/04/19 09:03 Troponin/CKMB CK-MB (CK-2) 1.2 ng/mL (0-6.6) 09/04/19 09:03 Troponin I 0.534 ng/mL (< 0.028) H* 09/04/19 09:03 - Telemetry Sinus rhythms and dysrhythmias: sinus rhythm - Assessment/Plan Assessment/Plan: 1. NSTEMI,. likely demand ischemia as she rivero sno ECG changes and has no chest pain. 2. PATRICA on CKD, on HD now per nephrology 3. CAD. 4. Paroxysmal afib PLAN: - Continue Eliquis for stroke prophylaxis - Continue Eliquis, Plavix and ASA for one month and then Plavix with Eliquis. - Nephrology deciding weather her HD will need to be chronic. Ms. Mendez wants it as she feels much better after HD. - CV stable, no new recs. - Will follow from a distant over the weekend and will re evaluate on Sunday.
[2019-09-05] MEDS: Insulin Glargine 60 UNITS in Pre-Filled Syringe 1 EACH SC SCH (20:17)
[2019-09-05] MEDS: Atorvastatin Calcium 40 MG TAB PO SCH (20:19)
[2019-09-05] MEDS: Lidocaine Patch Removal 1 EACH TOP SCH (20:21)
[2019-09-05 23:02] LABS: Creatinine, Urine 234.65 mg/dL (47-110)
[2019-09-05 23:03] LABS: Body Surface Area 2.08
[2019-09-06 07:59] VITALS: BP 136/77; TEMP 98.2
[2019-09-06] MEDS: Aspirin 81 mg Enteric Coated Tablet PO SCH (08:34)
[2019-09-06] MEDS: Escitalopram Oxalate 20 mg Tablet PO SCH (08:34)
[2019-09-06] MEDS: Apixaban 2.5 MG TAB PO SCH (08:34)
[2019-09-06] MEDS: Clopidogrel Bisulfate 75 MG TAB PO SCH (08:34)
[2019-09-06] MEDS: Pregabalin 50 MG CAP PO SCH (08:34)
[2019-09-06] MEDS: Carvedilol 6.25 MG TAB PO SCH (08:34)
[2019-09-06] MEDS: hydrALAZINE 25 MG TAB PO SCH (08:34)
[2019-09-06] MEDS: Levothyroxine Sodium 50 MCG TAB PO SCH (08:34)
[2019-09-06] MEDS: Multivit, Therapeutic 1 TAB PO SCH (08:34)
[2019-09-06] MEDS: Lidocaine 5% Patch TD SCH (08:35)
[2019-09-06] MEDS: Isosorbide Dinitrate 5 MG TAB PO SCH (08:35)
--- NOTE | 2019-09-06 10:47 | PRG ---
DATE OF SERVICE: 09/06/2019 SUBJECTIVE: This is a 63-year-old female being seen for end-stage kidney disease. The patient denied nausea, vomiting, or chest pain. PHYSICAL EXAMINATION: General: The patient is awake and alert. Vital Signs: Afebrile, pulse 75, breathing at 16, blood pressure 130/70. HEENT: Head normocephalic and atraumatic. Eyes intact, no ulcers. Nose intact, no ulcers. Ears intact, no ulcers. Neck: Supple. No JVD. Chest: Symmetrical and clear. Cardiovascular: Shows S1 and S2, no rub, no murmur. Gastrointestinal: Abdomen is soft, bowel sounds positive. Extremities: Show no edema or ulcers. Skin: Shows no rash or petechiae. Musculoskeletal: Shows no joint swelling or stiffness. Genitourinary: Shows no Howard or CVA tenderness. Neurologic: Motor intact. Cranial nerves intact. LABORATORY DATA: Labs reviewed. ASSESSMENT AND PLAN: 1. Stage 6 chronic kidney disease, plan hemodialysis. 2. Hypertension. 3. Anemia, stable. 4. Medication based on GFR appropriate. Job ID: [id number]
[2019-09-06] MEDS ORDERED: Carvedilol 6.25 MG TAB PO SCH (15:00)
[2019-09-06] MEDS ORDERED: Insulin Glargine 45 UNITS in Pre-Filled Syringe 1 EACH SC SCH (21:00)
--- NOTE | 2019-09-07 10:29 | DIS ---
DATE OF ADMISSION: 09/02/2019 DATE OF DISCHARGE: 09/06/2019 DISCHARGE DISPOSITION: Home. FOLLOWUP: 1. Follow up with primary care physician at [facility] in [place], Dr. Bella, next week as scheduled. 2. Outpatient cardiac rehab followup. 3. Follow up with Cardiology, Dr. Peter, as scheduled. ALLERGIES: THE PATIENT IS ALLERGIC TO DEMEROL, MORPHINE, ASPIRIN, AND LATEX. THE PATIENT WAS SEEN AND EXAMINED ON THE DAY OF DISCHARGE. DENIES ANY NEW COMPLAINTS. NO CHEST PAIN, SHORTNESS OF BREATH OR PALPITATIONS REPORTED. SYMPTOMATICALLY, SHE FEELS MUCH BETTER. SHE IS SATURATING 98% ON ROOM AIR. SHE IS IN SINUS RHYTHM ON THE [facility] [employer]. DISCHARGE MEDICATIONS: Carvedilol dose was increased to 12.5 mg 3 times a day. All other home medications were left unchanged. A prescription for nitroglycerin spray was provided. BRIEF HOSPITAL COURSE: The patient is a 63-year-old female with coronary artery disease with recent stent placement, presented to the emergency room with chest discomfort along with shortness of breath. Please refer to the discharge summary dated September 01, 2019, for details on recent hospitalization. The patient presented to the emergency room with shortness of breath along with intermittent chest discomfort that started next day post discharge. The patient was evaluated by Cardiology and Nephrology. Her symptoms gradually improved with dialysis. She was found to have troponin maximum of 0.534. According to Cardiology, this was secondary to demand ischemia. Symptomatically, she feels much better now. She is on room air. She denies any chest pain or shortness of breath. The patient is requesting to be discharged. FINAL DIAGNOSES: 1. Chest discomfort/shortness of breath, probably secondary to volume overload, improved after dialysis. 2. Elevated troponin, suspected type 2 myocardial infarction. 3. Atrial fibrillation with rapid ventricular response, in sinus rhythm. Carvedilol dose was increased. 4. Chronic anemia due to renal insufficiency, status post 1 unit of PRBC this admission. 5. Coronary artery disease with recent stent placement. The patient will continue aspirin and Plavix with Eliquis for one month, then Plavix with Eliquis per Cardiology. 6. Acute kidney injury on chronic kidney disease, stage 2, started on hemodialysis. 7. Chronic obstructive pulmonary disease. 8. Chronic diastolic heart failure. 9. Diabetes mellitus, type 2. 10. Depression, mild, stable. 11. Dyslipidemia. 12. Hypertension. 13. Ischemic cardiomyopathy. The patient understands the above plan of care. Job ID: [id number]
--- NOTE | 2019-09-08 03:17 | PQF ---
ANIYA PALMER MALIK MD [id number] CLINICAL DOCUMENTATION CLARIFICATION FORM: POST DISCHARGE Addendum to original discharge summary date: ____ Late entry note date: __ DATE: 09/08/2019 ATTN: Jaswant Cedillo Please exercise your independent, professional judgment in responding to the clarification form. Clinical indicators are provided on the bottom of this form for your review Please check appropriate box(s): HEART FAILURE: A. TYPE: [ ] Systolic / HFrEF [ x] Diastolic / HFpEF [ ] Combined Systolic / Diastolic B. ACUITY [ ] Acute [ x ] Acute on Chronic [ ] Chronic [ ] Other diagnosis [ ] Unable to determine In addition, please specify: Present on Admission (POA): [ x ] Yes [ ] No [ ] Unable to determine For continuity of documentation, please document condition throughout progress notes and discharge summary. Thank You. CLINICAL INDICATORS - SIGNS / SYMPTOMS / LABS DS "Chest discomfort/SOB probably secondary to volume overload" ED Notes 09/02 "evaluated for SOB and chest pain" ED Notes 09/02 "CHF exacerbation" HP 09/02 "Chest Xray done showed findings suspicious for fluid overload/CHF" PN 09/03 "pulmonary edema cardiac cause" PN 09/03 "Chronic diastolic CHF" Consult 09/03 "Acute on chronic systolic versus diastolic CHF" RISKS: ED Notes 09/02-63 years old female ED Notes 09/02-Old MA ED Notes 09/02-DM ED Notes 09/02-HTN HP 09/02-LBBB HP 09/02-Afib HP 09/02-CAD HP 09/02-CKD HP 09/02-Obesity HP 09/02-HLD PN 09/03-Ischemic CMP PN 09/03-Pulmonary HTN Consult 09/03-NSTEMI TREATMENTS: PN 09/03-Hemodialysis Collected 09/03-Echo SEP 07-Digosin 0.25mg IV (This form is maintained as a part of the permanent medical record) 2014 [employer] All Rights Reserved [email or web address] [phone] [email or web address]
== END 2019-09-06 11:29 | disposition home or self-care (01) | DRG 280 ==
LOC: ERS 17:22 → OBSVTOIN 22:30 → 2SW 22:30
PROVIDERS: ADMIT Internal Medicine; ATTEND Internal Medicine
PROC: 30233N1 Transfusion of Nonautologous Red Blood Cells into Peripheral Vein, Percutaneous Approach (ICD-10-PCS; 2019-09-04)
PROC: 5A1D70Z Performance of Urinary Filtration, Intermittent, Less than 6 Hours Per Day (ICD-10-PCS; principal; 2019-09-05)
DX: I13.0 Hypertensive heart and chronic kidney disease with heart failure and stage 1 through stage 4 chronic kidney disease, or unspecified chronic kidney disease (principal); J81.0 Acute pulmonary edema; I21.A1 Myocardial infarction type 2; I50.33 Acute on chronic diastolic (congestive) heart failure; N18.4 Chronic kidney disease, stage 4 (severe); N17.9 Acute kidney failure, unspecified; I44.7 Left bundle-branch block, unspecified; I25.10 Atherosclerotic heart disease of native coronary artery without angina pectoris; J44.9 Chronic obstructive pulmonary disease, unspecified; G43.909 Migraine, unspecified, not intractable, without status migrainosus; F32.9 Major depressive disorder, single episode, unspecified; F41.9 Anxiety disorder, unspecified; G89.29 Other chronic pain; M19.90 Unspecified osteoarthritis, unspecified site; M79.7 Fibromyalgia; E11.22 Type 2 diabetes mellitus with diabetic chronic kidney disease; E03.9 Hypothyroidism, unspecified; R33.9 Retention of urine, unspecified; I25.118 Atherosclerotic heart disease of native coronary artery with other forms of angina pectoris; E66.9 Obesity, unspecified; E78.5 Hyperlipidemia, unspecified; E78.00 Pure hypercholesterolemia, unspecified; I27.20 Pulmonary hypertension, unspecified; I48.0 Paroxysmal atrial fibrillation; E87.5 Hyperkalemia; D63.1 Anemia in chronic kidney disease; I25.5 Ischemic cardiomyopathy; I25.2 Old myocardial infarction; Z90.710 Acquired absence of both cervix and uterus; Z79.4 Long term (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 of insulin; Z68.33 Body mass index [BMI] 33.0-33.9, adult; Z95.1 Presence of aortocoronary bypass graft; Z95.5 Presence of coronary angioplasty implant and graft; Z88.5 Allergy status to narcotic agent; Z88.8 Allergy status to other drugs, medicaments and biological substances; Z91.040 Latex allergy status; Z79.01 Long term (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 of anticoagulants; Z79.899 Other long term (current) drug therapy
CPT/HCPCS: 36415; 36416; 36430; 80048; 80053; 80061; 81001; 82550; 82553; 82575; 84443; 84484; 85014; 85018; 85025; 86850; 86900; 86901; 93005; 93010; 93306; 93970; 94760; J1160; J1644; J1815; J3490; P9016

== ENCOUNTER 2019-09-15 00:12 | Observation (INO) | payer OTHER ==
[2019-09-15 01:03] LABS: #Eosinphils 0.2 thou/uL (0.0-0.7); #Lymphocytes 1.6 thou/uL (1.20-3.40); #Monocytes 0.5 thou/uL (0.11-0.59); #Neutrophils 3.6 thou/uL (1.40-6.50); %Basophils 0.6 % (0.0-1.0); %Lymphocytes 26.9 % (21.0-51.0); %Monocytes 8.3 % (0.0-10.0); %Neutrophils 60.2 % (42.0-75.0); Hemoglobin 9.7 g/dL (12.0-16.0); Mean Corpuscular HGB CONC 32.4 g/dL (32.0-36.0); Mean Corpuscular Hemoglobin 28.2 pg (27.0-31.0); Mean Corpuscular Volume 87.3 fL (78.0-98.0); Mean Platelet Volume 8.3 fL (7.4-10.4); Platelet Count 213 thou/uL (130-400); RBC Distribution Width 14.7 % (11.5-14.5); Red Blood Cell (RBC) Count 3.45 mill/uL (4.20-5.40)
[2019-09-15 01:26] LABS: ALT (SGPT) 12 U/L (8-55); AST (SGOT) 14 U/L (5-34); Albumin 3.6 g/dL (3.4-4.8); Alkaline Phosphatase 89 U/L (40-110); Anion Gap 14 mmol/L (10-20); BUN (Urea Nitrogen) 38 mg/dL (9.8-20.1); Bilirubin, Total 0.5 mg/dL (0.2-1.2); Calc. Creatinine Clearance 0 mL/min (70-130); Calcium 9.3 mg/dL (7.8-10.44); Carbon Dioxide 31 mmol/L (23-31); Chloride 96 mmol/L (98-107); Estimated GFR-MDRD 19; Globulin 2.6 g/dL (2.4-3.5); Glucose 197 mg/dL (80-115); Lipase 88 U/L (8-78); Potassium 3.5 mmol/L (3.5-5.1); Protein, Total 6.2 g/dL (6.0-8.3); Sodium 137 mmol/L (136-145)
[2019-09-15 01:46] LABS: CKMB 0.9 ng/mL (0-6.6)
[2019-09-15] MEDS ORDERED: Ondansetron PF 4 MG/2 ML Vial ONE (02:39)
[2019-09-15 04:16] LABS: Troponin I 0.092 ng/mL (< 0.028)
--- NOTE | 2019-09-15 08:39 | RAD ---
PORTABLE CHEST 1 VIEW: DATE: 09/15/2019. TIME: 1:12 AM. HISTORY: Chest pain. COMPARISON: Comparison is made with the exam of 09/02/2019. FINDINGS/IMPRESSION: The heart is enlarged. Right side dialysis catheter remains in place. There is mild pulmonary vascu lar congestion. No lobar consolidation, pneumothoraces, or large effusions are seen. POS: [facility]
--- NOTE | 2019-09-15 08:49 | HP ---
PRIMARY CARE PROVIDER: Alexis Lay Referred to the Hospitalist Service by [facility] for chest pain, indeterminate troponin. The patient with multiple medical problems, multiple admissions to the hospital, presents again with pressure, chest pain lasting hours, radiating to her back associated with sweats, nausea, shortness of breath. She was last discharged from the hospital 09/06/2019. She has a history of bare metal stents in the past. She has a history of stenosis with 2 stents placed 2019. PAST MEDICAL HISTORY: Diabetes mellitus type 2 with chronic kidney disease, now with end-stage renal disease, on hemodialysis. She has a history of atrial fib, coronary artery disease, diabetes mellitus type 2, hypothyroidism, fibromyalgia, chronic back pain, hypertension, COPD. PAST SURGICAL HISTORY: Includes hysterectomy, surgery on right leg in 1994, hysterectomy. CURRENT MEDICATIONS: 1. Lipitor 40 mg a day. 2. Tizanidine 4 mg three times a day. 3. Citalopram 20 mg a day. 4. Lyrica 100 mg twice a day. 5. Lantus 60 units subcu at bedtime. 6. Flomax 0.4 mg a day. 7. Lasix 40 mg a day. 8. Lisinopril 5 mg a day. 9. Humalog 30 units subcu three times a day. 10. Glipizide 10 mg a day. 11. Levothyroxine 50 mcg a day. 12. Xanax 1 mg p.o. q.12 hours p.r.n. 13. Eliquis 5 mg twice a day. FAMILY HISTORY: Sister of ovarian cancer. The patient is with coronary artery disease and kidney disease in the family. SOCIAL HISTORY: No alcohol. No tobacco. Lives alone. Full code status. Surrogate decision makers Bryce Meek, her sister. REVIEW OF SYSTEMS: HEAD: No headaches, dizziness or fainting. EYES: She has cataracts. No double vision, flashing lights. EAR, NOSE AND THROAT: No ear pain or drainage. No nasal bleeding. No trouble swallowing. CARDIAC: She has 2-pillow orthopnea in addition to her chest pain. RESPIRATION: No current cough, wheezing, or asthma. GASTROINTESTINAL: She has had some abdominal cramping. No diarrhea and no vomiting. No melena. GENITOURINARY: She is on hemodialysis. Last hemodialysis 3 days ago. Passes minimal urine. MUSCULOSKELETAL: No pain or swelling in her arms or legs. NEUROLOGICAL: No strokes, seizures, or focal weakness. PSYCHIATRIC: No current anxiety, depression. SKIN: No bruising, bleeding or rash. HEME/LYMPH: Nontender, swollen lymph nodes at the axilla, inguinal, and cervical area. PHYSICAL EXAMINATION: GENERAL: She is alert woman appearing 10 years older than stated age. VITAL SIGNS: Blood pressure 129/67, pulse 87, respirations 15, temperature 97.9. Room air sat 95. HEAD, EYES, EARS, NOSE, AND THROAT: Reveals pupils equal and round. Bilateral cataracts. Extraocular movements are intact. Sclerae are white. Tympanic membranes clear. Nose is clear. Oral mucous membranes are wet. She is edentulous. NECK: No jugular venous distention, adenopathy or thyromegaly. CHEST: Clear to auscultation and percussion. HEART: Regular rate and rhythm. First second second heart sounds are clear. There are no appreciated murmurs or gallops. ABDOMEN: Soft. Bowel sounds are normal. There is no hepatosplenomegaly. No mass. No rebound. No bruits. EXTREMITIES: Reveal no cyanosis, clubbing, or edema. PULSES: Carotid, radial, femoral pulses intact. Pedal pulses diminished Symmetrically. SKIN : Warm and dry without bruises or rash. HEME/LYMPH: No tender or swollen lymph nodes in the axilla, inguinal, cervical area. NEUROLOGICAL: Cranial nerves 2 through 12 are intact. Deep tendon reflexes markedly diminished. Moves all extremities. DIAGNOSTIC STUDIES: Chest x-ray, borderline cardiomegaly, pulmonary vascular congestion. Personally reviewed. EKG, left bundle branch block, sinus rhythm, first-degree block. Personally reviewed. LABORATORY DATA: Comprehensive metabolic profile: Sodium 137, potassium 3.5, CO2 31, BUN 38, creatinine 2.57, glucose 197. Liver function tests normal. Troponin 0.09. White count 6.0, hemoglobin 9.7, platelet count 213,000. ADMITTING DIAGNOSES: 1. Chest pain in patient with known coronary artery disease, post stenosis of stents with revascularization recently. 2. Diabetes mellitus with chronic kidney disease, ending in end-stage renal disease on chronic hemodialysis. 3. Cardiomyopathy with ejection fraction 45-50%. 4. Hypertension. 5. History of fibromyalgia. 6. History of chronic obstructive pulmonary disease. 7. Dyslipidemia. 8. Hypothyroidism. PLAN: Admit. Aspirin. Continue home medicines. Serial troponins. Consult Dr. Peter. Consult Dr. Jackson for hemodialysis. Job ID: [id number] MTDD
[2019-09-15] MEDS ORDERED: Aspirin 325 mg Enteric Coated Tablet PO SCH (09:00)
[2019-09-15 09:08] VITALS: BMI 34.4
[2019-09-15] MEDS ORDERED: Dextrose 5% in Water 1,000 ML IV PRN (09:08)
[2019-09-15] MEDS ORDERED: Dextrose 50% Abboject 50 ML SYRINGE SLOW IVP PRN (09:08)
[2019-09-15] MEDS ORDERED: Nitroglycerin 0.4 MG TAB (25 Tab Bottle) PO PRN (09:08)
--- NOTE | 2019-09-15 11:23 | PRG ---
DATE OF SERVICE: SUBJECTIVE: This is a 63-year-old female being seen for end-stage kidney disease. The patient denied nausea, vomiting, or chest pain. OBJECTIVE: GENERAL: The patient is awake and alert. VITAL SIGNS: Afebrile, pulse 68, breathing at 16, blood pressure 115/56. HEENT: Head normocephalic and atraumatic. Eyes intact, no ulcers. Nose intact, no ulcers. Ears intact, no ulcers. NECK: Supple. No JVD. CHEST: Symmetrical and clear. CARDIOVASCULAR: Shows S1 and S2, no rub, no murmur. GASTROINTESTINAL: Abdomen is soft, bowel sounds positive. EXTREMITIES: Show no edema or ulcers. SKIN: Shows no rash or petechiae. MUSCULOSKELETAL: Shows no joint swelling or stiffness. GENITOURINARY: Shows no Howard or CVA tenderness. NEUROLOGIC: Motor intact. Cranial nerves intact. LABORATORY DATA: Reviewed. ASSESSMENT AND PLAN: 1. Stage 6 chronic kidney disease. Plan dialysis. 2. Hypertension, stable. 3. Anemia, stable. 4. Anuria. Job ID: [id number]
[2019-09-15] MEDS: HumaLOG 300 UNITS/3 ML VIAL SC PRN ×2 (12:06→17:06)
[2019-09-15] MEDS ORDERED: Heparin 10,000 UNITS/ 10 ML VIAL ONE (13:03)
[2019-09-15 13:17] LABS: Troponin I 0.064 ng/mL (< 0.028)
[2019-09-15] MEDS ORDERED: INSULIN ASPART 60 UNIT SQ SCH (15:00)
--- NOTE | 2019-09-15 16:36 | CON ---
DATE OF CONSULTATION: 09/15/2019 REASON FOR CONSULTATION: Chest pain. HISTORY OF PRESENT ILLNESS: Ms. Mendez is a pleasant 63-year-old white female, who comes to the hospital for chest pain. She actually had pain all over the place. She states that yesterday evening, she felt a sudden onset of just a warm feeling all over the place. She felt lower back pain. She felt upper back pain. She felt chest pain, abdominal pain. Her arms hurt. Everything was hurting and she felt very short winded, felt nauseated, and sweats. She states that she got worried, so decided to come in for evaluation. She was recently discharged when she presented with non-STEMI. She had heart catheterization and had in-stent restenosis of bare-metal stents. She had drug-eluting stent placed this time around, and she had to undergo start of dialysis after that. She did well. She felt a lot better after dialysis. She states she was feeling just fine. She had her last dialysis on Sunday and over the weekend, she does not feel she drank any more than normal, but she started feeling this way last night. Currently, on my evaluation, she is getting dialyzed. She denies any chest pain, tightness, or pressure. PAST MEDICAL HISTORY: 1. Chronic kidney disease, end-stage, now on dialysis. 2. Atrial fibrillation. 3. Coronary artery disease. 4. Type 2 diabetes. 5. Hypothyroidism. 6. Fibromyalgia. 7. Chronic back pain. 8. Hypertension. 9. COPD. PAST SURGICAL HISTORY: 1. Hysterectomy. 2. Right leg surgery. 3. Heart catheterization and stents in the past to both RCA and the LAD. Drug-eluting is more recently due to in-stent restenosis of bare-metal. OUTPATIENT MEDICATIONS: 1. Lipitor 40 mg a day. 2. Tizanidine. 3. Citalopram. 4. Lyrica. 5. Lantus. 6. Flomax. 7. Lasix. 8. Lisinopril 5 mg a day. 9. Humalog. 10. Glipizide. 11. Levothyroxine. 12. Xanax. 13. Eliquis 5 mg b.i.d. 14. Plavix 75 mg a day. ALLERGIES: LATEX, MEPERIDINE, MORPHINE, AND ASPIRIN. FAMILY HISTORY: Sister of ovarian cancer. SOCIAL HISTORY: No alcohol, tobacco, or drugs. REVIEW OF SYSTEMS: 12-point review of systems was done and was all negative unless stated in the history of present illness. PHYSICAL EXAMINATION: VITAL SIGNS: Temperature 97.5, pulse 81, respiratory rate 20, saturating 100% on 2 L, blood pressure 130/58. GENERAL: Awake, alert, oriented x3, in no distress. HEENT: Normocephalic, atraumatic. NECK: Supple. LUNGS: Clear. CARDIOVASCULAR: S1 and S2. No S3 or S4. There is a very soft grade 2/6 systolic murmur at the right upper sternal border. ABDOMEN: Soft with positive bowel sounds. EXTREMITIES: Trace edema. SKIN: Warm and dry. LABORATORY DATA: Laboratory work was reviewed. CBC with a white count of 6, hemoglobin 9.7, hematocrit 30, platelet count of 213. Chemistry was unremarkable except for BUN of 30, creatinine 2.57, GFR of 19. Troponin was 0.09, 0.09, 0.08, 0.06 with a normal CK-MB. Lipase was 88. Albumin was 3.6. EKG was reviewed, no ischemic changes. ASSESSMENT: 1. Atypical chest pain. 2. Shortness of breath. 3. End-stage renal disease. 4. Fibromyalgia. PLAN: 1. No plans on cardiac catheterization at this time. I would only take her if she were to have ST elevations or if her troponins were to increase significantly. At this point, her troponin bump is more likely related to her chronic LV dysfunction and end-stage renal disease. We will continue current regimen for now. 2. Continue Eliquis at 5 mg b.i.d. as this is the dose for end-stage renal disease patients and continue Plavix as she is allergic to aspirin. Thank you for letting us to participate in the care of your patient. We will follow. Job ID: [id number]
[2019-09-15] MEDS ORDERED: Acetaminophen 500 MG TAB PO PRN (16:51)
[2019-09-15] MEDS: HumaLOG 300 UNITS/3 ML VIAL SC SCH (16:57)
[2019-09-15] MEDS ORDERED: Non-Formulary Item 1 EACH (Insulin Glargine,Hum.Rec.Anlog [Lantus Solostar] 60 UNIT) SQ SCH (21:00)
[2019-09-15] MEDS ORDERED: Atorvastatin Calcium 40 MG TAB PO SCH (21:00)
[2019-09-15] MEDS ORDERED: Non-Formulary Item 1 EACH (Carvedilol [Coreg] 12.5 MG) PO SCH (21:00)
[2019-09-15] MEDS ORDERED: Insulin Glargine 60 UNITS in Pre-Filled Syringe 1 EACH SC SCH (21:00)
[2019-09-15] MEDS ORDERED: Non-Formulary Item 1 EACH (Pregabalin [Lyrica] 100 MG) PO SCH (21:00)
[2019-09-15] MEDS: Pregabalin 50 MG CAP PO SCH (22:23)
[2019-09-15] MEDS: hydrALAZINE 25 MG TAB PO SCH (22:24)
[2019-09-15] MEDS: Carvedilol 6.25 MG TAB PO SCH (22:25)
[2019-09-15] MEDS: glipiZIDE 10 MG TAB PO SCH (22:25)
[2019-09-15] MEDS: Isosorbide Dinitrate 5 MG TAB PO SCH (22:26)
[2019-09-15] MEDS: Apixaban 2.5 MG TAB PO SCH (22:45)
[2019-09-16] MEDS ORDERED: Acetaminophen 325 MG TAB PO PRN (05:32)
[2019-09-16 08:38] VITALS: TEMP 98.2
[2019-09-16] MEDS ORDERED: Aspirin 81 mg Enteric Coated Tablet PO SCH (09:00)
[2019-09-16] MEDS ORDERED: Clopidogrel Bisulfate 75 MG TAB PO SCH (09:00)
[2019-09-16] MEDS ORDERED: Furosemide 40 MG TAB PO SCH (09:00)
[2019-09-16] MEDS ORDERED: Levothyroxine Sodium 50 MCG TAB PO SCH (09:00)
[2019-09-16] MEDS ORDERED: Lisinopril 10 MG TAB PO SCH (09:00)
--- NOTE | 2019-09-16 09:52 | PRG ---
DATE OF SERVICE: 09/16/2019 SUBJECTIVE: A 63-year-old female being seen for end-stage renal disease. The patient denied nausea, vomiting, or chest pain. PHYSICAL EXAMINATION: General: The patient is awake and alert. Vital Signs: Afebrile, pulse 96, breathing at 16, blood pressure 137/63. HEENT: Head normocephalic and atraumatic. Eyes intact, no ulcers. Nose intact, no ulcers. Ears intact, no ulcers. Neck: Supple. No JVD. Chest: Symmetrical and clear. Cardiovascular: Shows S1 and S2, no rub, no murmur. Gastrointestinal: Abdomen is soft, bowel sounds positive. Extremities: Show no edema or ulcers. Skin: Shows no rash or petechiae. Musculoskeletal: Shows no joint swelling or stiffness. Genitourinary: Shows no Howard or CVA tenderness. Neurologic: Motor intact. Cranial nerves intact. LABORATORY DATA: Labs reviewed. ASSESSMENT AND PLAN: 1. Stage 6 chronic kidney disease. Plan dialysis per schedule Sunday, Sunday, Sunday. 2. Hypertension, stable. 3. Anemia, stable. 4. Dialysis access. The patient is interested in PD, so I will consult Dr. Hawkins for PD catheter placement. Job ID: [id number]
[2019-09-16] MEDS: Carvedilol 6.25 MG TAB PO SCH (09:53)
[2019-09-16] MEDS: Apixaban 2.5 MG TAB PO SCH (09:53)
[2019-09-16] MEDS: Pregabalin 50 MG CAP PO SCH (09:54)
[2019-09-16] MEDS: hydrALAZINE 25 MG TAB PO SCH (09:54)
[2019-09-16] MEDS: HumaLOG 300 UNITS/3 ML VIAL SC SCH ×2 (09:55→12:10)
[2019-09-16] MEDS: glipiZIDE 10 MG TAB PO SCH (09:55)
[2019-09-16] MEDS: Isosorbide Dinitrate 5 MG TAB PO SCH (09:55)
[2019-09-16 10:01] VITALS: BP 128/58
--- NOTE | 2019-09-16 11:07 | DIS ---
DATE OF ADMISSION: 09/15/2019 DATE OF DISCHARGE: 09/16/2019 PRIMARY CARE PROVIDER: None. DISPOSITION: Discharged home. FINAL DIAGNOSES: Noncardiac chest pain, coronary artery disease, end-stage renal disease on hemodialysis, type 2 diabetes, and atrial fibrillation. DISCHARGE MEDICATIONS: 1. Eliquis increased from 2.5 mg twice a day to 5 mg twice a day by Dr. Peter. 2. Glipizide 10 mg twice a day. 3. NovoLog 60 units subcu t.i.d. 4. Lisinopril 10 mg a day. 5. Lasix 40 mg a day. 6. Isosorbide dinitrate 5 mg twice a day. 7. Apresoline 25 mg twice a day. 8. Lyrica 100 mg twice a day. 9. Lantus 60 units subcu at bedtime. 10. Coreg 12.5 mg twice a day. 11. Levothyroxine 50 mcg a day. 12. Plavix 75 mg a day. 13. Lipitor 40 mg a day. ALLERGIES: ALLERGIC TO ASPIRIN, DEMEROL, AND MORPHINE. CODE STATUS: Full. PENDING AT TIME OF DISCHARGE: Nothing. DIET: Diabetic. CONSULTATIONS: Moises Peter MD, Cardiology and Antonio Jackson MD, Nephrology. PROCEDURES DONE DURING THE HOSPITAL STAY: Hemodialysis on 09/15/2019. HOSPITAL COURSE: The patient admitted with atypical chest pain. Comprehensive metabolic profile, BUN 38, creatinine 2.57, and blood sugar 197. Lytes balanced. Troponin 0.09, 0.09, and 0.08. CBC; white count 6.0, hemoglobin 9.7, and platelet count 213,000. The patient was seen in consultation by Dr. Peter, who considered her elevated troponins related to chronic LV dysfunction and end-stage renal disease. Her EKGs reveal no acute changes. He increased her Eliquis to 5 mg twice a day. PLAN: Follow up with PCP, which she needs in 3 days. Follow up with Cardiology per her request. Keep hemodialysis appointments three times a week. Job ID: [id number]
--- NOTE | 2019-09-16 17:15 | PRG ---
DATE OF SERVICE: 09/16/2019 Ms. Adela Mendez is being discharged today. She has had a prior fistula placed. Dr. Jackson has told me she is interested in a peritoneal dialysis. The patient had recently coronary intervention by Dr. Peter. I have spoken with Dr. Peter and Dr. Peter states it is safe to proceed with under general anesthesia with laparoscopic peritoneal dialysis catheter placement. We will hold her Eliquis 2-3 days prior. We will discuss with the patient today that she desires this outpatient procedure. Job ID: [id number]
[2019-09-16] MEDS ORDERED: Apixaban 5 MG TAB PO SCH (21:00)
--- NOTE | 2019-09-20 14:12 | EKG ---
Test Reason : Blood Pressure : / mmHG Vent. Rate : 086 BPM Atrial Rate : 086 BPM P-R Int : 214 ms QRS Dur : 152 ms QT Int : 438 ms P-R-T Axes : 073 031 167 degrees QTc Int : 524 ms Sinus rhythm with 1st degree A-V block with occasional Premature ventricular complexes Left bundle branch block Abnormal ECG No sig change from 09/02/2019 Confirmed by JAHAIRA HDEZ DO ([id number]), image editor JANELL THORNE ([id number]) on 09/20/2019 2:12:01 PM Referred By: Confirmed By:JAHAIRA HDEZ DO
== END 2019-09-16 15:19 | disposition home or self-care (01) ==
LOC: ERS 00:12 → ERHOLD 02:18 → 2SW 08:53
PROVIDERS: ADMIT Internal Medicine; ATTEND Internal Medicine
DX: R07.89 Other chest pain (principal); I25.10 Atherosclerotic heart disease of native coronary artery without angina pectoris; E11.22 Type 2 diabetes mellitus with diabetic chronic kidney disease; I12.0 Hypertensive chronic kidney disease with stage 5 chronic kidney disease or end stage renal disease; N18.6 End stage renal disease; I48.91 Unspecified atrial fibrillation; R06.02 Shortness of breath; M79.7 Fibromyalgia; G89.29 Other chronic pain; M54.9 Dorsalgia, unspecified; Z79.01 Long term (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 of anticoagulants; Z79.4 Long term (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 of insulin; Z79.899 Other long term (current) drug therapy; Z79.02 Long term (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 of antithrombotics/antiplatelets; Z88.6 Allergy status to analgesic agent; Z88.5 Allergy status to narcotic agent; Z99.2 Dependence on renal dialysis; Z90.710 Acquired absence of both cervix and uterus; Z98.890 Other specified postprocedural states; Z95.5 Presence of coronary angioplasty implant and graft; Z91.040 Latex allergy status
CPT/HCPCS: 36415; 36416; 71045; 80053; 82553; 83690; 84484; 85025; 90935; 93005; 94760; 96374; G0257; G0378; J1644; J1815; J2405

== ENCOUNTER 2019-10-06 05:47 | Observation (INO) | payer OTHER ==
[2019-10-06 06:37] LABS: #Eosinphils 0.2 thou/uL (0.0-0.7); #Lymphocytes 1.5 thou/uL (1.20-3.40); #Monocytes 0.6 thou/uL (0.11-0.59); #Neutrophils 5.5 thou/uL (1.40-6.50); %Basophils 0.3 % (0.0-1.0); %Eosinophils 2.8 % (0.0-10.0); %Lymphocytes 19.4 % (21.0-51.0); %Monocytes 7.8 % (0.0-10.0); %Neutrophils 69.8 % (42.0-75.0); Hemoglobin 11.5 g/dL (12.0-16.0); Mean Corpuscular HGB CONC 31.7 g/dL (32.0-36.0); Mean Corpuscular Hemoglobin 27.4 pg (27.0-31.0); Mean Corpuscular Volume 86.3 fL (78.0-98.0); Mean Platelet Volume 8.9 fL (7.4-10.4); Platelet Count 228 thou/uL (130-400); RBC Distribution Width 14.4 % (11.5-14.5); White Blood Cell (WBC) Count 7.8 thou/uL (4.8-10.8)
[2019-10-06] MEDS ORDERED: Fentanyl 100 MCG/2 ML VIAL ONE ×2 (06:45→10:44)
[2019-10-06] MEDS ORDERED: Clopidogrel Bisulfate 75 MG TAB ONE (06:49)
[2019-10-06 07:05] LABS: AST (SGOT) 9 U/L (5-34); Bilirubin, Total 0.4 mg/dL (0.2-1.2); Calcium 9.4 mg/dL (7.8-10.44); Chloride 96 mmol/L (98-107); Potassium 3.7 mmol/L (3.5-5.1); Sodium 135 mmol/L (136-145)
[2019-10-06 07:07] LABS: Bacteria/HPF None Seen HPF (None Seen); Bilirubin Negative (Negative); Blood, Urine 1+ (Negative); Clarity Clear (Clear); Glucose, Urine (Dipstick) Greater than 1000 mg/dL (Negative); Leukocyte 75 Leu/uL (Negative); Nitrite Negative (Negative); Protein, Urine (Dipstick) 10 mg/dL (Neg-Trace); RBC/HPF 0-3 HPF (0-3); Squamous Epithelial 0-3 HPF (0-3); Urobilinogen Normal mg/dL (Less than 2)
[2019-10-06 07:18] LABS: Yeast-Budding 4+ HPF (None Seen)
[2019-10-06 07:18] LABS: CKMB 0.7 ng/mL (0-6.6)
[2019-10-06 07:21] LABS: Albumin 3.4 g/dL (3.4-4.8)
[2019-10-06 07:23] LABS: Glucose 456 mg/dL (80-115)
[2019-10-06 07:24] LABS: Globulin 2.6 g/dL (2.4-3.5)
[2019-10-06 07:25] LABS: Carbon Dioxide 25 mmol/L (23-31)
[2019-10-06 07:26] LABS: Alkaline Phosphatase 111 U/L (40-110)
[2019-10-06 07:27] LABS: BUN (Urea Nitrogen) 32 mg/dL (9.8-20.1); Calc. Creatinine Clearance 0 mL/min (70-130); Estimated GFR-MDRD 21
[2019-10-06 07:29] LABS: ALT (SGPT) 9 U/L (8-55); Lipase 62 U/L (8-78)
[2019-10-06 07:30] LABS: Anion Gap 18 mmol/L (10-20); CK (CPK) 28 U/L (29-168)
--- NOTE | 2019-10-06 08:08 | RAD ---
PORTABLE CHEST 1 VIEW: DATE: 10/06/2019. TIME: 6:17 AM. HISTORY: Chest pain. COMPARISON: 09/15/2019. FINDINGS/IMPRESSION: The heart size is enlarged. A right-sided dialysis catheter remains in place. The lungs are expande d without lobar consolidation, pneumothorax, izabela pulmonary edema, or pleural effusions. POS: [facility]
--- NOTE | 2019-10-06 09:09 | CT ---
CT PULMONARY ANGIOGRAM WITH IV CONTRAST AND 3D MIP RECONSTRUCTIONS: DATE: 10/06/2019. PROVIDED CLINICAL HISTORY: Chest pain. FINDINGS: Comparison 01/19/2019. Vascular calcification including coronary calcium is demonstrated. The heart, pericardium, and great vessels demonstrate an otherwise unremarkable CT appearance. There is no evidence for central or se gmental pulmonary embolus. The lung parenchyma is suboptimally evaluated due to patient respiratory motion. No consolidation or pneumothorax is evident. Small bilateral pleural fluid. Single nonspecific enlarged prevascular ly mph node measuring approximately 1.1 cm in short axis. No evidence for axillary or hilar lymph node enlargement. The airway appears patent and of normal caliber. The visualized portions of the upper abdomen demonstrate no acute abnormality. The osseous structure s demonstrate no concerning lytic or blastic lesions. IMPRESSION: 1. No evidence for central or segmental pulmonary embolus. 2. Small bilateral pleural fluid. 3. Nonspecific solitary enlarged prevascular lymph node. POS: [facility]
[2019-10-06] MEDS ORDERED: Heparin 10,000 UNITS/ 10 ML VIAL ONE (09:14)
[2019-10-06 09:24] LABS: Troponin I 0.056 ng/mL (< 0.028)
[2019-10-06 12:23] VITALS: BMI 32.6
--- NOTE | 2019-10-06 12:57 | CON ---
DATE OF CONSULTATION: 10/06/2019 CONSULTING PHYSICIAN: ER physician. REASON FOR CONSULTATION: End-stage renal disease evaluation. REASON FOR ADMISSION: Chest pain. HISTORY OF PRESENT ILLNESS: A 63-year-old female with history of end-stage renal disease, type 2 diabetes, hypertension, coronary artery disease, who came to the hospital with chest pain and is being evaluated. The patient has dialysis on Sunday, Sunday, and Sunday. Nephrology is consulted. PAST MEDICAL HISTORY: Positive for type 2 diabetes, end-stage renal disease, hypertension, coronary artery disease, hypothyroidism, fibromyalgia, and COPD. PAST SURGICAL HISTORY: Hysterectomy, dialysis access surgery, and right leg surgery. HOME MEDICATIONS: Reviewed. ALLERGIES: LATEX, MEPERIDINE, MORPHINE, AND ASPIRIN. SOCIAL HISTORY: No smoking, alcohol, or illicit drug abuse. FAMILY HISTORY: Positive for ovarian cancer. REVIEW OF SYSTEMS: CONSTITUTIONAL: Negative for weight loss or gain, ability to conduct usual activities. SKIN: Negative for rash, itching. EYES: Negative for double vision, pain. ENT/MOUTH: Negative for nose bleeding, neck stiffness, pain, tenderness. CARDIOVASCULAR: Negative for palpitations, dyspnea on exertion, orthopnea. RESPIRATORY: Negative for shortness of breath, wheezing, cough, hemoptysis, fever or night sweats. GASTROINTESTINAL: Negative for poor appetite, abdominal pain, heartburn, nausea , vomiting, constipation, or diarrhea. GENITOURINARY: Negative for urgency, frequency, dysuria, nocturia. MUSCULOSKELETAL: Negative for pain, swelling. NEUROLOGIC/PSYCHIATRIC: Negative for anxiety, depression. ALLERGY/IMMUNOLOGIC: Negative for skin rash, bleeding tendency. PHYSICAL EXAMINATION: GENERAL: Reveals a well-built female, in no apparent distress. VITAL SIGNS: reviewed and please see the chart. Musculoskeletal : No tenderness, 1+ edema HEENT: Atraumatic normocephalic Neck: Supple Cardiovascular: S1S2 heard, Rate and rhythm regular Respiratory: Clear to auscultation Gastrointestinal: Abdomen is soft Dermatologic : No skin rash Neurologic: Alert and awake and oriented X3 No focal neurologic deficits. Moving all the extremities. Psychiatric: Mood and affect normal LABORATORY DATA: Hemoglobin is 11.5. Potassium 3.7, BUN is 32, and creatinine is 2.3. ASSESSMENT AND PLAN: 1. End-stage renal disease. Continue dialysis on Sunday, Sunday, and Sunday. 2. Edema, controlled. 3. History of hypertension. 4. Chronic anemia. 5. Hyponatremia. 6. Elevated BNP. Remove fluid on dialysis. Plan to have dialysis on Sunday, Sunday, and Sunday as tolerated. Thank you for the consult. Job ID: [id number] MTDD
[2019-10-06 13:27] LABS: Troponin I 0.096 ng/mL (< 0.028)
[2019-10-06] MEDS ORDERED: Dextrose 50% Abboject 50 ML SYRINGE SLOW IVP PRN (13:48)
[2019-10-06] MEDS ORDERED: Ondansetron PF 4 MG/2 ML Vial IVP PRN (13:48)
[2019-10-06] MEDS ORDERED: Nitroglycerin 0.4 MG TAB (25 Tab Bottle) PO PRN (13:48)
[2019-10-06] MEDS ORDERED: HumaLOG 300 UNITS/3 ML VIAL SC PRN ×2 (13:48)
[2019-10-06] MEDS ORDERED: Dextrose 5% in Water 1,000 ML IV PRN (13:48)
[2019-10-06] MEDS ORDERED: Ondansetron ODT 4 MG TAB SL PRN (13:48)
[2019-10-06] MEDS ORDERED: hydrALAZINE 20 MG/ML VIAL SLOW IVP PRN (13:48)
--- NOTE | 2019-10-06 14:39 | HP ---
PRIMARY CARE PROVIDER: Dana Bella MD CHIEF COMPLAINT: Chest pain and shortness of breath. HISTORY OF PRESENT ILLNESS: This is a 63-year-old female, who initially presented to [facility] Emergency Department complaining of less than 12-hour history of chest pain with associated shortness of breath, sharp in nature with radiation to the upper back without associated fever, cough, congestion, sore throat, or trauma. The patient states that the pain began after waking up from sleeping and states she had similar symptoms in early September of 2019, thinking it was related to her coronary artery disease. The patient is status post cardiac catheterization in August 2019 showing severe in-stent restenosis of the LAD and RCA, status post PCI to the associated arteries. The patient has been medically managed since that time including Plavix and Eliquis. The patient also states she took 4 sprays of sublingual nitroglycerin in addition to her long-acting isosorbide dinitrate. The patient also admits to compliance with her hemodialysis sessions, which she completed on 10/03/2019. In the emergency room, the patient underwent general evaluation showing mild troponin elevation consistent with previous trend. No EKG changes to suggest ST-elevation and chest imaging was unremarkable. The patient received Plavix 75 mg x1 dose in addition to fentanyl x2 doses. PAST MEDICAL HISTORY: 1. Coronary artery disease, status post PCI with in-stent restenoses in August 2019 to the proximal LAD and RCA. 2. Diabetes mellitus, type 2, insulin requiring. 3. End-stage renal disease with current hemodialysis on Sunday, Sunday, and Sunday. 4. Non-ST elevation myocardial infarction. 5. History of bradycardia. 6. Fibromyalgia. 7. Migraine headaches. 8. Hypothyroidism. 9. Hyperlipidemia. 10. Chronic obstructive pulmonary disease. 11. Hypertension. 12. Paroxysmal atrial fibrillation, on chronic anticoagulation with Eliquis. 13. Chronic stage C diastolic congestive heart failure. 14. Pulmonary hypertension. 15. Morbid obesity. PAST SURGICAL HISTORY: 1. Status post cardiac stent placement x2 with PCI in 08/2019. 2. Status post hysterectomy. 3. Status post right leg surgery. 4. Status post cystectomy under left shoulder. 5. Status post cardiac stent placement. 6. Status post right upper extremity AV fistula placement. 7. Status post tunneled hemodialysis catheter placement. CURRENT MEDICATIONS: 1. Lipitor 40 mg p.o. at bedtime. 2. Coreg 12.5 mg p.o. b.i.d. 3. Lasix 40 mg p.o. daily. 4. Glipizide 10 mg p.o. b.i.d. 5. NovoLog FlexPen 60 units subcutaneously t.i.d. with meals. 6. Glargine insulin 60 units subcutaneously at bedtime. 7. Isosorbide dinitrate 5 mg p.o. b.i.d. 8. Levothyroxine 50 mcg p.o. daily. 9. Lisinopril 10 mg p.o. daily. 10. Lyrica 100 mg p.o. b.i.d. 11. Eliquis 5 mg p.o. b.i.d. 12. Plavix 75 mg p.o. daily. 13. Hydralazine 25 mg p.o. b.i.d. ALLERGIES: ASPIRIN, LATEX, MEPERIDINE, AND MORPHINE SULFATE. FAMILY HISTORY: Positive for ovarian carcinoma. SOCIAL HISTORY: Resides in [place], [place]. . No current alcohol, tobacco, or illicit drug use. REVIEW OF SYSTEMS: CONSTITUTIONAL: Negative for weight loss or gain, ability to conduct usual activities. SKIN: Negative for rash, itching. EYES: Negative for double vision, pain. ENT/MOUTH: Negative for nose bleeding, neck stiffness, pain, tenderness. CARDIOVASCULAR: Negative for palpitations, dyspnea on exertion, orthopnea. RESPIRATORY: Negative for shortness of breath, wheezing, cough, hemoptysis, fever or night sweats. GASTROINTESTINAL: Negative for poor appetite, abdominal pain, heartburn, nausea, vomiting, constipation, or diarrhea. GENITOURINARY: Negative for urgency, frequency, dysuria, nocturia. MUSCULOSKELETAL: Negative for pain, swelling. NEUROLOGIC/PSYCHIATRIC: Negative for anxiety, depression. ALLERGY/IMMUNOLOGIC: Negative for skin rash, bleeding tendency. Otherwise, negative except as stated per HPI. PHYSICAL EXAMINATION: VITAL SIGNS: On admission, blood pressure 129/59, pulse 92, respiratory rate 16, temperature 97.7 degrees Fahrenheit, and O2 saturation 100% on 0.5 L per minute by nasal cannula. GENERAL APPEARANCE: This is a 63-year-old female, alert and oriented x3, pleasant, responsive, in no acute distress. HEENT: Pupils are equal, round, and reactive to light and accommodation. Extraocular muscles are intact. No scleral icterus. No conjunctival injection. Nares patent. OP is clear. Teeth in poor repair. NECK: Supple. No cervical adenopathy. No thyromegaly. No carotid bruits. No JVD appreciated. Cervical spine with full active and passive range of motion. No meningeal signs noted. CHEST: Diminished breath sounds bilaterally, otherwise clear. CARDIOVASCULAR: S1 and S2 with 2/6 systolic ejection murmur loudest in the left upper sternal border. Right subclavian tunneled hemodialysis catheter in place. ABDOMEN: Obese, soft, nontender, and nondistended. Bowel sounds are positive in all 4 quadrants. There is no hepatosplenomegaly. No abdominal bruits. No rebound or guarding appreciated. EXTREMITIES: Warm and dry with fair turgor. No clubbing or cyanosis. Mild edema of bilateral lower extremities. Pulses palpable distally at the dorsalis pedis, posterior tibial, and popliteal arteries bilaterally. Capillary refill less than 2 seconds. NEUROLOGIC: Cranial nerves II through XII are grossly intact. No focal or lateralizing signs appreciated. PERTINENT LABORATORY AND X-RAY FINDINGS: Sodium 135, potassium 3.7, chloride 96, CO2 of 25, BUN 32, creatinine 2.33, estimated GFR 21, glucose 456, calcium 9.4, and alkaline phosphatase 111. Troponin I ranged between 0.034 to 0.096. BNP 774, previously noted 1515 on 09/02/2019. Lipase 62. CBC showed a white blood cell count of 7.8, hemoglobin 11.5, hematocrit 36, and platelet count 228 with normal differential. D-dimer 0.58. Urinalysis; positive for glucose, 1+ blood, 75 leukocyte esterase with 4+ yeast. Portable chest x-ray dated 10/06/2019, showed no acute cardiopulmonary process. Tunneled right-sided hemodialysis catheter in appropriate positioning. CT angiogram of the chest dated 10/06/2019, showed no evidence for pulmonary embolus. No acute process identified. EKG dated 10/06/2019, by my interpretation shows sinus mechanism with heart rates in the 70s to 80s. Left bundle-branch block pattern noted. No acute ST-T wave changes appreciated. ASSESSMENT AND PLAN: 1. Chest pain. The patient will be observed on the telemetry unit. We will continue trending serial troponin I. Suspect troponin I elevation due to end-stage renal disease. When reviewing electronic medical record, troponin I elevation noted over the last to 1-1/2 years. Continue nitroglycerin as needed. We would not pursue further ischemic workup with recent cardiac catheterization in August 2019. Consider titrating current dose of isosorbide dinitrate. 2. End-stage renal disease with hemodialysis. We will continue maintenance hemodialysis as the patient does not present with acute or decompensated volume overload. 3. Elevated troponin I. Suspect demand ischemia in the context of end-stage renal disease. Continue medical management. 4. Diabetes mellitus, type 2, insulin requiring. Continue insulin sliding scale for reflexive coverage. Resume glipizide 10 mg b.i.d. in addition to glargine 60 units subcutaneously at bedtime. ADA diet. Serial Accu-Cheks before meals and at bedtime. 5. Hypertension. Resume home antihypertensive regimen and monitor clinical response. 6. Prophylaxis. SCDs while in bed. Pepcid 20 mg p.o. b.i.d. 7. Code status is full. Surrogate medical decision maker is the patient's spouse. Job ID: [id number]
[2019-10-06 16:52] LABS: Troponin I 0.096 ng/mL (< 0.028)
[2019-10-06] MEDS: glipiZIDE 10 MG TAB PO SCH (19:15)
[2019-10-06] MEDS: HumaLOG 300 UNITS/3 ML VIAL SC SCH (19:19)
[2019-10-06] MEDS ORDERED: ALPRAZolam 1 MG TAB PO PRN (20:19)
[2019-10-06] MEDS ORDERED: Famotidine 20 MG TAB PO SCH (21:00)
[2019-10-06] MEDS ORDERED: Insulin Glargine 60 UNITS in Pre-Filled Syringe 1 EACH SC SCH (21:00)
[2019-10-06] MEDS ORDERED: Atorvastatin Calcium 40 MG TAB PO SCH (21:00)
[2019-10-06] MEDS ORDERED: Non-Formulary Item 1 EACH (Insulin Glargine,Hum.Rec.Anlog [Lantus Solostar] 60 UNIT) SQ SCH (21:00)
[2019-10-06] MEDS: hydrALAZINE 25 MG TAB PO SCH (21:41)
[2019-10-06] MEDS: Acetaminophen 500 MG TAB PO PRN (21:48)
[2019-10-06] MEDS: Pregabalin 50 MG CAP PO SCH (21:48)
[2019-10-06] MEDS: Apixaban 5 MG TAB PO SCH (21:49)
[2019-10-06] MEDS: Carvedilol 6.25 MG TAB PO SCH (21:49)
[2019-10-06] MEDS: Isosorbide Dinitrate 5 MG TAB PO SCH (21:49)
[2019-10-07 05:26] LABS: Band 3 % (5-11); Eosinophils 4 % (0-10); Hemoglobin 10.7 g/dL (12.0-16.0); Lymphocytes 18 % (21-51); MDiff Complete? YES; Mean Corpuscular HGB CONC 32.7 g/dL (32.0-36.0); Mean Corpuscular Hemoglobin 27.5 pg (27.0-31.0); Mean Corpuscular Volume 84.1 fL (78.0-98.0); Mean Platelet Volume 8.9 fL (7.4-10.4); Monocytes 10 % (0-10); Neutrophil 65 % (42-75); Platelet Count 215 thou/uL (130-400); RBC Distribution Width 14.3 % (11.5-14.5); White Blood Cell (WBC) Count 5.6 thou/uL (4.8-10.8)
[2019-10-07 05:39] LABS: Anion Gap 11 mmol/L (10-20); BUN (Urea Nitrogen) 13 mg/dL (9.8-20.1); Calc. Creatinine Clearance 40 mL/min (70-130); Calcium 9.3 mg/dL (7.8-10.44); Carbon Dioxide 29 mmol/L (23-31); Chloride 96 mmol/L (98-107); Estimated GFR-MDRD 24; Glucose 204 mg/dL (80-115); Potassium 3.6 mmol/L (3.5-5.1); Sodium 132 mmol/L (136-145)
[2019-10-07] MEDS ORDERED: Levothyroxine Sodium 50 MCG TAB PO SCH (06:00)
[2019-10-07] MEDS ORDERED: Furosemide 40 MG TAB PO SCH (09:00)
[2019-10-07] MEDS ORDERED: Lisinopril 10 MG TAB PO SCH (09:00)
[2019-10-07] MEDS ORDERED: Clopidogrel Bisulfate 75 MG TAB PO SCH ×2 (09:00)
[2019-10-07] MEDS: hydrALAZINE 25 MG TAB PO SCH (09:33)
[2019-10-07] MEDS: Apixaban 5 MG TAB PO SCH (09:33)
[2019-10-07] MEDS: Isosorbide Dinitrate 5 MG TAB PO SCH (09:33)
[2019-10-07] MEDS: Carvedilol 6.25 MG TAB PO SCH (09:33)
[2019-10-07] MEDS: Pregabalin 50 MG CAP PO SCH (09:34)
[2019-10-07] MEDS: glipiZIDE 10 MG TAB PO SCH ×2 (09:35→17:54)
[2019-10-07] MEDS: HumaLOG 300 UNITS/3 ML VIAL SC SCH (09:35)
[2019-10-07] MEDS: ALPRAZolam 0.5 MG TAB PO PRN ×2 (10:40→17:54)
[2019-10-07] MEDS: Acetaminophen 500 MG TAB PO PRN ×2 (10:40→17:54)
[2019-10-07 12:19] VITALS: TEMP 98
--- NOTE | 2019-10-07 12:48 | PRG ---
DATE OF SERVICE: 10/07/2019 SUBJECTIVE: Patient was seen and examined at bedside and overnight events noted. Patient denies any shortness of breath or chest pain or palpitation. No history of nausea or vomiting or diarrhea or fever or chills or cramps. OBJECTIVE: General: This is a well-built female, in no apparent distress. Vital Signs: Temperature 97.8. Heart Rate 74. Respiratory rate 16. Blood pressure 113/56. HEENT: Atraumatic, normocephalic. Oral mucosa is moist. Neck: Supple. Cardiovascular: S1, S2 heard. Rate and rhythm regular. Respiratory: Clear to auscultation. Gastrointestinal: Abdomen is soft. Musculoskeletal: No tenderness. No edema. Dermatologic: No skin rash. Neurologic: Alert and awake and oriented x3. No focal neurologic deficits. Moving all the extremities. Psychiatric: Mood and affect normal. LABORATORY DATA: Potassium 3.6, BUN is 13, and creatinine is 2.09. ASSESSMENT AND PLAN: 1. End-stage renal disease. Continue on dialysis as tolerated. 2. Edema, better. 3. History of hypertension, stable. 4. Chronic anemia. 5. Elevated BNP. Continue dialysis on Sunday, Sunday, and Sunday. Job ID: [id number]
[2019-10-07 17:40] VITALS: BP 124/56
--- NOTE | 2019-10-07 18:01 | DIS ---
DATE OF ADMISSION: 10/06/2019 DATE OF DISCHARGE: 10/07/2019 DISCHARGE DISPOSITION: Home. FOLLOWUP: 1. Follow up with primary care physician, Dr. Bella in 1 week. 2. Follow up with Dr. Peter in 1 week. DISCHARGE MEDICATIONS: Ranexa 500 mg b.i.d. All other home medications were left unchanged. The patient was seen on the day of discharge. Denies any new complaints, no chest pain, shortness of breath or palpitations. INPATIENT SPONSORSHIP MANAGER: 1. Cardiology, Dr. Peter. 2. Nephrology, Dr. Pretty. BRIEF HOSPITAL COURSE: The patient is a 63-year-old female with coronary artery disease status post recent stent placement, diabetes mellitus, type 2 and end- stage renal disease on hemodialysis, presented to the emergency room with chest discomfort. Please refer to the history and physical by Dr. Espinoza Augustine dated 06 October 2019 for further details. The patient was admitted to the hospital with a diagnosis of chest discomfort, rule out acute coronary syndrome. Serial troponins were in the indeterminate range with a maximum troponin of 0.096. She was evaluated by Cardiology. She has been started on Ranexa per Cardiology recommendation. All other home medications were left unchanged. She has been cleared by Cardiology for discharge. She denies any chest discomfort at this time. The patient understands the above plan of care. FINAL DIAGNOSES: 1. Chest discomfort. 2. Recent hld-LT-[id number] myocardial infarction with stent placement. 3. End-stage renal disease, on hemodialysis. 4. Coronary artery disease, status post recent stent placement. 5. Chronic obstructive pulmonary disease. 6. Chronic diastolic heart failure. 7. Diabetes mellitus, type 2. 8. Depression. 9. Dyslipidemia. 10. Hypertension. 11. Ischemic cardiomyopathy. 12. Hyponatremia. 13. Obesity with a BMI of 30.8. Job ID: [id number] [facility]
--- NOTE | 2019-10-08 07:13 | CON ---
DATE OF CONSULTATION: 10/07/2019 REASON FOR CONSULTATION: Chest pain. HISTORY OF PRESENT ILLNESS: Ms. Mendez is a pleasant 63-year-old white female, who comes to the hospital for chest pain. She was very well known to myself. She recently had a heart catheterization back in August for suspicion of in-stent restenoses. She had bare metal stents to the right and LAD. She had in-stent restenosis in both arteries and actually received drug-eluting stents to the RCA and to the LAD this time around. She was started on dual anti-platelet therapy, which she has been very compliant with. She comes in with just a little twinge in the midsternal area. She does have a history of fibromyalgia. Her troponins have been in the indeterminate range consistent with her history of end-stage renal disease. No EKG changes. PAST MEDICAL HISTORY: 1. End-stage renal disease, on hemodialysis. 2. Paroxysmal atrial fibrillation. 3. Coronary artery disease. 4. Type 2 diabetes. 5. Hypothyroidism. 6. Fibromyalgia. 7. Chronic back pain. 8. Hypertension. 9. COPD. PAST SURGICAL HISTORY: 1. Hysterectomy. 2. Right leg surgery. 3. Heart catheterization in August with stents to both RCA and LAD with drug-eluting stents. OUTPATIENT MEDICATIONS: 1. Tylenol. 2. . 3. Eliquis 5 mg b.i.d. 4. Lipitor. 5. Coreg 12.5 b.i.d. 6. Plavix 75 mg a day. 7. Hydralazine 25 mg b.i.d. 8. Glipizide. 9. Lyrica. 10. Lisinopril 10 mg a day. 11. Levothyroxine. 12. Isosorbide dinitrate 5 mg b.i.d. 13. Atorvastatin 40 mg at bedtime. 14. Furosemide 40 mg a day. 15. Insulin Lantus 60 units at bedtime. 16. NovoLog 60 units t.i.d. 17. Xanax p.r.n. ALLERGIES: ASPIRIN, LATEX, MEPERIDINE, AND MORPHINE. SOCIAL HISTORY: No alcohol, tobacco, or drugs. FAMILY HISTORY: Noncontributory. REVIEW OF SYSTEMS: A 12-point review of systems was done and was all negative unless stated in the history of present illness. PHYSICAL EXAMINATION: VITAL SIGNS: Temperature 98, pulse 75, respiratory rate 18, sat 95% on room air, and blood pressure 124/59. GENERAL: Awake, alert, and oriented x3. No distress. HEENT: Normocephalic and atraumatic. NECK: Supple. LUNGS: Clear. CARDIOVASCULAR: S1 and S2. No S3 or S4. No murmurs. ABDOMEN: Soft. Positive bowel sounds. EXTREMITIES: No edema. SKIN: Warm and dry. LABORATORY DATA: Laboratory work was reviewed. CBC, coags, and chemistries were all reviewed. Troponin was 0.05, 0.09, and 0.09. UA with 1+ blood, 75 leukocyte esterase, 7 to 10 white cells, and 4+ yeast. ASSESSMENT AND PLAN: Chest pain. May be related to fibromyalgia. No evidence of in-stent thrombosis with normal EKG and just indeterminate troponin bump. PLAN: 1. We will plan on increasing her antianginal. We will add Ranexa 500 mg b.i.d. We would not increase her isosorbide given her borderline low blood pressure. 2. May discharge home at any point from the cardiac perspective. 3. Follow up in the office in 2 to 4 weeks. Job ID: [id number]
--- NOTE | 2019-10-10 13:55 | EKG ---
Test Reason : Blood Pressure : / mmHG Vent. Rate : 091 BPM Atrial Rate : 091 BPM P-R Int : 230 ms QRS Dur : 150 ms QT Int : 432 ms P-R-T Axes : 085 064 081 degrees QTc Int : 531 ms Sinus rhythm with 1st degree A-V block Left bundle branch block No STEMI Abnormal ECG Confirmed by MIKE GELLER M.D. ([id number]), scientific editor JNOI ROBERTS ([id number]) on 10/10/2019 1:55:18 PM Referred By: Confirmed By:MIKE GELLER M.D.
== END 2019-10-07 18:29 | disposition home or self-care (01) ==
LOC: ERS 05:47 → 2SW 10:32
PROVIDERS: ADMIT Family Medicine; ATTEND Family Medicine
DX: R07.89 Other chest pain (principal); I25.2 Old myocardial infarction; I25.10 Atherosclerotic heart disease of native coronary artery without angina pectoris; E11.22 Type 2 diabetes mellitus with diabetic chronic kidney disease; J44.9 Chronic obstructive pulmonary disease, unspecified; I13.2 Hypertensive heart and chronic kidney disease with heart failure and with stage 5 chronic kidney disease, or end stage renal disease; N18.6 End stage renal disease; I50.32 Chronic diastolic (congestive) heart failure; F32.9 Major depressive disorder, single episode, unspecified; E78.5 Hyperlipidemia, unspecified; I25.5 Ischemic cardiomyopathy; E87.1 Hypo-osmolality and hyponatremia; E66.9 Obesity, unspecified; I48.0 Paroxysmal atrial fibrillation; E03.9 Hypothyroidism, unspecified; M79.7 Fibromyalgia; G89.29 Other chronic pain; M54.9 Dorsalgia, unspecified; R60.9 Edema, unspecified; Z99.2 Dependence on renal dialysis; Z95.5 Presence of coronary angioplasty implant and graft; Z90.710 Acquired absence of both cervix and uterus; Z68.31 Body mass index [BMI] 31.0-31.9, adult; Z98.890 Other specified postprocedural states; Z79.01 Long term (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 of anticoagulants; Z79.02 Long term (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 of antithrombotics/antiplatelets; Z79.4 Long term (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 of insulin; Z79.899 Other long term (current) drug therapy; Z88.6 Allergy status to analgesic agent; Z91.040 Latex allergy status; Z88.5 Allergy status to narcotic agent
CPT/HCPCS: 36415; 36416; 51701; 71045; 71275; 80048; 80053; 81003; 81015; 82550; 82553; 83690; 83880; 84484; 85007; 85025; 85027; 85379; 90935; 93005; 94760; 96374; 96376; G0257; G0378; J1644; J1815; J3010; Q0162

== ENCOUNTER 2019-11-01 09:07 | Inpatient (IN) | payer OTHER ==
[2019-11-01] MEDS ORDERED: Fentanyl 100 MCG/2 ML VIAL ONE (09:55)
[2019-11-01] MEDS ORDERED: Ondansetron PF 4 MG/2 ML Vial ONE (09:55)
[2019-11-01] MEDS ORDERED: HYDROcodone/Acetaminophen 5/325 mg Tablet ONE (10:04)
--- NOTE | 2019-11-01 10:11 | CT ---
CT Brain WO Con: 11/01/2019 9:48 AM CLINICAL HISTORY: 63-year-old female status post fall with head injury. IMAGING TECHNIQUE: Multiple CT images were obtained of the brain without IV contrast. COMPARISON: CT the brain without contrast dated April 13, 2019 FINDINGS: Brain: There is mild generalized cerebral and cerebellar atrophy. There is a remote lacunar infarct involving the left globus pallidus which is stable. Mild chronic small vessel white matter ischemic changes stable. Ventricles: Normal. No hydrocephalus. Skull: Intact. Visualized Paranasal sinuses: Clear. Mastoid air cells:Clear. Extracranial soft tissues:Normal. IMPRESSION: No acute intracranial abnormality.
[2019-11-01 10:33] LABS: #Basophils 0.1 thou/uL (0.0-0.2); #Eosinphils 0.2 thou/uL (0.0-0.7); #Lymphocytes 1.5 thou/uL (1.20-3.40); #Monocytes 0.4 thou/uL (0.11-0.59); #Neutrophils 4.3 thou/uL (1.40-6.50); %Lymphocytes 22.4 % (21.0-51.0); %Monocytes 6.7 % (0.0-10.0); %Neutrophils 66.9 % (42.0-75.0); Hemoglobin 13.1 g/dL (12.0-16.0); Mean Corpuscular HGB CONC 31.8 g/dL (32.0-36.0); Mean Corpuscular Hemoglobin 27.2 pg (27.0-31.0); Mean Corpuscular Volume 85.5 fL (78.0-98.0); Mean Platelet Volume 9.3 fL (7.4-10.4); Platelet Count 186 thou/uL (130-400); Red Blood Cell (RBC) Count 4.81 mill/uL (4.20-5.40); White Blood Cell (WBC) Count 6.5 thou/uL (4.8-10.8)
--- NOTE | 2019-11-01 10:39 | CT ---
CT CERVICAL SPINE PERFORMED WITHOUT CONTRAST ENHANCEMENT: History: Fall with neck pain. Comparison: 07-31-2019 FINDINGS: The vertebral bodies are normal in height. There is fairly pronounced degenerative disc narrowing at C6-7. The facets are all in normal alignment. There is no canal or any significant foraminal narrowin g. Some borderline narrowing is seen at the C6-7 level in the foramen region. There is no CT evidence for fracture. The lung apices are clear. IMPRESSION: No CT evidence of fracture of the cervical spine. POS: RAFA
--- NOTE | 2019-11-01 10:43 | RAD ---
PORTABLE CHEST: History: Fall. Comparison: 10-06-2019 FINDINGS: Heart size appears slightly enlarged. Right sided HemoSplit catheter is present. The lungs are clear of infiltrates. No fractures are identified. IMPRESSION: Borderline to minimal cardiomegaly. No acute findings. POS: RAFA
[2019-11-01 11:01] LABS: Acetaminophen Less than 6.0 mcg/mL (10.0-30.0); Alcohol Less than 10 mg/dL (Less than 10); Lipase 149 U/L (8-78); Salicylate Less than 8.0 mg/dL (15.0-30.0)
[2019-11-01 11:06] LABS: ALT (SGPT) 11 U/L (8-55); AST (SGOT) 20 U/L (5-34); Alkaline Phosphatase 130 U/L (40-110); Anion Gap 20 mmol/L (10-20); BUN (Urea Nitrogen) 22 mg/dL (9.8-20.1); Bilirubin, Total 0.4 mg/dL (0.2-1.2); CK (CPK) 34 U/L (29-168); Calc. Creatinine Clearance 0 mL/min (70-130); Carbon Dioxide 28 mmol/L (23-31); Chloride 94 mmol/L (98-107); Estimated GFR-MDRD 21; Globulin 2.8 g/dL (2.4-3.5); Glucose 177 mg/dL (80-115); Potassium 3.9 mmol/L (3.5-5.1); Protein, Total 6.8 g/dL (6.0-8.3); Sodium 138 mmol/L (136-145)
[2019-11-01 11:25] LABS: CKMB 0.6 ng/mL (0-6.6)
[2019-11-01 11:37] LABS: Prothrombin Time 12.9 SEC (12.0-14.7)
[2019-11-01 16:58] LABS: CKMB 0.7 ng/mL (0-6.6)
[2019-11-01] MEDS ORDERED: Ondansetron ODT 4 MG TAB SL PRN (18:11)
[2019-11-01] MEDS ORDERED: Acetaminophen 325 MG TAB PO PRN (18:11)
[2019-11-01] MEDS ORDERED: Ondansetron PF 4 MG/2 ML Vial IVP PRN (18:11)
[2019-11-01] MEDS ORDERED: Acetaminophen 500 MG TAB PO PRN (18:24)
[2019-11-01] MEDS: traMADol HCl 50 MG TAB PO PRN (18:55)
--- NOTE | 2019-11-01 19:26 | PDOC.HHP ---
Hospitalist HPI - History of Present Illness neck pain and generalized weakness History of Present Illness: 63yo F w/ MHx of paroxysmal afib (on eliquis), orthostatic hypotension, ESRD presents for neck pain and generalized weakness. the patient reports having neck pain chronically and is followed by PCP. On no pain medications at home. Yesterday, reported that she fell off her bed, after which neck pain has worsened. Per patient, generalized weakness occurred prior to fall and worseninig of neck pain. On encounter, lying comfortably in bed and complains of persistent neck pain limiting active movement of the neck. Denies weight loss, chills, night sweats, sensory deficits, new gait disturbance, bladder dysfunction (produces some urine ), injection drug use, recent truauma to head or neck prior to recent fall. ED Course: In the ED, CT head showed no intra- or extracranial bleed. CT cervical spine showed mild C6-C7 spondylosis. She was admitted to observation for further management. Hospitalist ROS - Review of Systems All other systems reviewed; all pertinent +/- noted in HPI/Subj - Medication Medications: Active Medications Generic Name Dose Route Start Last Admin Trade Name Freq PRN Reason Stop Dose Admin Tramadol HCl 50 mg 11/01/19 18:22 11/01/19 18:55 Ultram PO 50 mg Q6H PRN Administration Moderate Pain (4-6) Hospitalist History - Past Medical History Source: patient (1. Coronary artery disease, status post PCI with in-stent restenoses in August 2019 to the proximal LAD and RCA. 2. Diabetes mellitus, type 2, insulin requiring. 3. End-stage renal disease with current hemodialysis on Sunday, Sunday, and Sunday. 4. Non-ST elevation myocardial infarction. 5. History of bradycardia. 6. Fibromyalgia. 7. Migraine headaches. 8. Hypothyroidism. 9. Hyperlipidemia. 10. Chronic obstructive 13. Chronic stage C diastolic congestive heart failure. 14. Pulmonary hypertension. 15. Morbid obesity. PAST SURGICAL HISTORY: 1. Status post cardiac stent placement x2 with PCI in 08/2019. 2. Status post hysterectomy. 3. Status post right leg surgery. 4. Status post cystectomy under left shoulder. 5. Status post cardiac stent placement. 6. Status post right upper extremity AV fistula placement. 7. Status post tunneled hemodialysis catheter placement. CURRENT MEDICATIONS: 1. Lipitor 40 mg p.o. at bedtime. 2. Coreg 12.5 mg p.o. b.i.d. 3. Lasix 40 mg p.o. daily. 4. Glipizide 10 mg p.o. b.i.d. 5. NovoLog FlexPen 60 units subcutaneously t.i.d. with meals. 6. Glargine insulin 60 units subcutaneously at bedtime. 7. Isosorbide dinitrate 5 mg p.o. b.i.d. 8. Levothyroxine 50 mcg p.o. daily. 9. Lisinopril 10 mg p.o. daily. 10. Lyrica 100 mg p.o. b.i.d. 11. Eliquis 5 mg p.o. b.i.d. 12. Plavix 75 mg p.o. daily. 13. Hydralazine 25 mg p.o. b.i.d. ALLERGIES: ASPIRIN, LATEX, MEPERIDINE, AND MORPHINE SULFATE (years ago, received opiods since, vomiting, questionable if allergy). FAMILY HISTORY: Positive for ovarian carcinoma. SOCIAL HISTORY: Resides in [place], [place]. . No current alcohol, tobacco, or illicit drug use.) Psych: reports: Anxiety, Depression Musculoskeletal: reports: Chronic low back pain (hx of spinal stenosis), Osteoarthritis Rheumatologic: reports: Fibromyalgia Renal/: reports: Acute renal failure, Chronic renal failure (stage 4 CKD) Endocrine: reports: Diabetes, Hypothyroidism - Past Surgical History Past Surgical History: reports: Hysterectomy - Social History Alcohol: reports: None Drugs: reports: Other (Used marijuana in the past..) - Exam General Appearance: NAD, awake alert General - other findings: morbidly obese Eye: PERRL ENT: normocephalic atraumatic, no oropharyngeal lesions, moist mucosa Heart: RRR, no murmur, no gallops, no rubs Respiratory: CTAB, no wheezes, no rales, no ronchi Respiratory - other findings: reudced breath sounds throughout due to body habitus Gastrointestinal: soft, non-tender, non-distended, normal bowel sounds Neurological: cranial nerve grossly intact, normal sensation to touch, no weakness, no focal deficits. negative: facial droop, hemiplegia, speech deficit Musculoskeletal: normal tone, normal strength Psychiatric: A&O x 3, oriented to person, oriented to place, oriented to time Hospitalist Results - Labs Result Diagrams: 11/01/19 09:56 11/01/19 09:56 Lab results: WBC 6.5 thou/uL (4.8-10.8) 11/01/19 09:56 Hgb 13.1 g/dL (12.0-16.0) 11/01/19 09:56 Hct 41.2 % (36.0-47.0) 11/01/19 09:56 MCV 85.5 fL (78.0-98.0) 11/01/19 09:56 Plt Count 186 thou/uL (130-400) 11/01/19 09:56 Neutrophils % 66.9 % (42.0-75.0) 11/01/19 09:56 Sodium 138 mmol/L (136-145) 11/01/19 09:56 Potassium 3.9 mmol/L (3.5-5.1) 11/01/19 09:56 Chloride 94 mmol/L (98-107) L 11/01/19 09:56 Carbon Dioxide 28 mmol/L (23-31) 11/01/19 09:56 BUN 22 mg/dL (9.8-20.1) H 11/01/19 09:56 Creatinine 2.31 mg/dL (0.6-1.1) H 11/01/19 09:56 Glucose 177 mg/dL (80-115) H 11/01/19 09:56 Calcium 10.0 mg/dL (7.8-10.44) 11/01/19 09:56 Total Bilirubin 0.4 mg/dL (0.2-1.2) 11/01/19 09:56 AST 20 U/L (5-34) 11/01/19 09:56 ALT 11 U/L (8-55) 11/01/19 09:56 Alkaline Phosphatase 130 U/L (40-110) H 11/01/19 09:56 Creatine Kinase 34 U/L (29-168) 11/01/19 09:56 CK-MB (CK-2) 0.7 ng/mL (0-6.6) 11/01/19 16:07 Troponin I 0.042 ng/mL (< 0.028) H 11/01/19 16:07 Serum Total Protein 6.8 g/dL (6.0-8.3) 11/01/19 09:56 Albumin 4.0 g/dL (3.4-4.8) 11/01/19 09:56 Lipase 149 U/L (8-78) H 11/01/19 09:56 - EKG Interpretation EKG: first degree block with old LBBB. sgarbosa -ve - Radiology Interpretation Other Status: image reviewed by me (CT neck shows mild c5-c6 spondylosis) Hospitalist H&P A/P - Problem (1) Cervical spondylosis Code(s): M47.812 - SPONDYLOSIS W/O MYELOPATHY OR RADICULOPATHY, CERVICAL REGION Status: Acute (2) PATRICA (acute kidney injury) Code(s): N17.9 - ACUTE KIDNEY FAILURE, UNSPECIFIED Status: Acute (3) Orthostatic hypotension Code(s): I95.1 - ORTHOSTATIC HYPOTENSION Status: Acute (4) Afib Code(s): I48.91 - UNSPECIFIED ATRIAL FIBRILLATION Status: Chronic (5) DM type 2 (diabetes mellitus, type 2) Status: Chronic Qualifiers: Diabetes mellitus fdc insulin use: with superintendent terminal use Diabetes mellitus complication status: with kidney complications Diabetes mellitus complication detail: with chronic kidney disease Chronic kidney disease stage : stage 3 (moderate) Qualified Code(s): E11.22 - Type 2 diabetes mellitus with diabetic chronic kidney disease; N18.3 - Chronic kidney disease, stage 3 ( moderate); Z79.4 - terminal manager (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 of insulin (6) Paroxysmal atrial fibrillation Code(s): I48.0 - PAROXYSMAL ATRIAL FIBRILLATION Status: Chronic - Plan Plan: #cervical spondylosis -has had chronic cervical pain; followed by PCP, no use of pain medication -no red flags -CT neck showing no fracture or signficant spinal compressio -physical exam not consistent with myelopathy or radiculopathy plan: -management of pain -PT/OT #fall -no signs of facial or head truama on exam or CT head -per family, patient didn't fall but rather found slumped over side of bed -orthostats; if positive, will review polypharmacy and make adjustments if possible -telemetry for arrhythmia #CAD s/p stent x 2 (08/2019) #CHFpEF -no ACS or acute decompensation -restarted home medications #p. afib -patient on eliquis, which was restarted -EKG showing sinus rhythm #ESRD -will consult nephrology in case patient stays #T2DM -restarted home medications; check glucose ACHS disposition/ppx -full code. is surrogate decision maker -GI PPx: no indication -DVT PPx: on eliquis for afib
[2019-11-01] MEDS ORDERED: Non-Formulary Item 1 EACH (Insulin Glargine,Hum.Rec.Anlog [Lantus Solostar] 60 UNIT) SQ SCH (21:00)
[2019-11-01] MEDS ORDERED: Heparin 5,000 UNITS/ML VIAL SC SCH (21:00)
[2019-11-01] MEDS ORDERED: Insulin Glargine 60 UNITS in Pre-Filled Syringe 1 EACH SC SCH (21:00)
[2019-11-01] MEDS: Pregabalin 50 MG CAP PO SCH (21:05)
[2019-11-01] MEDS: Apixaban 5 MG TAB PO SCH (21:05)
[2019-11-01] MEDS: Carvedilol 25 MG TAB PO SCH (21:06)
[2019-11-01] MEDS: Atorvastatin Calcium 40 MG TAB PO SCH (21:06)
[2019-11-01] MEDS: Isosorbide Dinitrate 5 MG TAB PO SCH (21:06)
[2019-11-01] MEDS: hydrALAZINE 25 MG TAB PO SCH (21:07)
[2019-11-02] MEDS: Levothyroxine Sodium 50 MCG TAB PO SCH (05:17)
[2019-11-02] MEDS: traMADol HCl 50 MG TAB PO PRN ×3 (06:01→21:51)
[2019-11-02] MEDS ORDERED: HumaLOG 300 UNITS/3 ML VIAL SC SCH (08:00)
[2019-11-02] MEDS ORDERED: Lisinopril 10 MG TAB PO SCH (09:00)
[2019-11-02] MEDS: Isosorbide Dinitrate 5 MG TAB PO SCH ×2 (10:16→22:04)
[2019-11-02] MEDS: Pregabalin 50 MG CAP PO SCH ×2 (10:17→21:49)
[2019-11-02] MEDS: hydrALAZINE 25 MG TAB PO SCH ×2 (10:17→21:56)
[2019-11-02] MEDS: Furosemide 40 MG TAB PO SCH (10:17)
[2019-11-02] MEDS: Apixaban 5 MG TAB PO SCH ×2 (10:18→21:50)
[2019-11-02] MEDS: Clopidogrel Bisulfate 75 MG TAB PO SCH (10:18)
[2019-11-02] MEDS: Carvedilol 25 MG TAB PO SCH ×2 (10:18→21:50)
[2019-11-02 11:02] LABS: Medtox Reader # READER 1; Phencyclidine (PCP) Not Detected (NotDetected); THC/Cannabinoid Screen Not Detected (NotDetected)
[2019-11-02 11:03] LABS: Amphetamine Not Detected (NotDetected); Barbiturates Screen Not Detected (NotDetected); Benzodiazepine Screen Detected (NotDetected); Cocaine Metabolite Screen Not Detected (NotDetected); Medtox Control Line Valid? VALID (VALID); Methadone Not Detected (NotDetected); Methamphetamine Not Detected (NotDetected); Opiate Screen Not Detected (NotDetected); Oxycodone Screen Not Detected (NotDetected); Tricyclic Screen Not Detected (NotDetected)
[2019-11-02] MEDS ORDERED: Sodium Chloride 0.9% 1,000 ML IV SCH (11:45)
[2019-11-02] MEDS: HumaLOG 300 UNITS/3 ML VIAL SC SCH ×2 (13:05→18:03)
[2019-11-02] MEDS ORDERED: Insulin Glargine 60 UNITS in Pre-Filled Syringe 1 EACH SC SCH (21:00)
[2019-11-02] MEDS: Atorvastatin Calcium 40 MG TAB PO SCH (21:49)
[2019-11-02] MEDS: ALPRAZolam 1 MG TAB PO PRN (21:49)
[2019-11-02] MEDS: Insulin Glargine 30 UNITS in Pre-Filled Syringe 1 EACH SC SCH (21:57)
--- NOTE | 2019-11-02 22:09 | PDOC.HOSPP ---
- Subjective Encounter Date: 11/02/19 Encounter Time: 10:00 Subjective: no overnight events. This morning, neck pain and strength improved. While working with PT, orthostatic hypotension and dizziness noted. - Objective Vital Signs & Weight: Vital Signs (12 hours) Temp Pulse Resp BP BP BP BP 11/02/19 21:56 72 11/02/19 20:00 98.1 F 72 16 11/02/19 15:41 97.6 F 66 16 11/02/19 15:16 108/63 103/65 11/02/19 11:14 97.9 F 69 20 158/69 H 11/02/19 10:17 73 123/59 L 11/02/19 10:16 123/59 L BP Pulse Ox 11/02/19 21:56 11/02/19 20:00 149/62 H 95 11/02/19 15:41 96 11/02/19 15:16 128/53 L 11/02/19 11:14 95 11/02/19 10:17 11/02/19 10:16 Weight Weight 209 lb 9.6 oz I&O: 11/01/19 11/02/19 11/03/19 06:59 06:59 06:59 Intake Total 400 1000 Output Total 0 Balance 400 1000 Result Diagrams: 11/01/19 09:56 11/01/19 09:56 Additional Labs: Accuchecks 11/02/19 11/02/19 11/02/19 20:38 16:38 10:31 POC Glucose 205 H 120 H 181 H 11/02/19 06:11 POC Glucose 164 H Hospitalist ROS - Review of Systems Constitutional: denies: fever, chills, sweats, weakness, malaise, other Respiratory: denies: cough, dry, shortness of breath, hemoptysis, SOB with excertion, pleuritic pain, sputum, wheezing, other Cardiovascular: denies: chest pain, palpitations, orthopnea, paroxysmal noc. dyspnea, edema, light headedness, other Gastrointestinal: denies: nausea, vomiting, abdominal pain, diarrhea, constipation, melena, hematochezia, other Genitourinary: denies: dysuria, frequency, incontinence, hematuria, retention, other - Medication Medications: Active Medications Generic Name Dose Route Start Last Admin Trade Name Freq PRN Reason Stop Dose Admin Acetaminophen 1,000 mg 11/01/19 18:24 11/02/19 10:16 Tylenol PO 1,000 mg Q6H PRN Administration Moderate to Severe Pain (6-10) Alprazolam 1 mg 11/01/19 19:11 11/02/19 21:49 Xanax PO 1 mg HSPRN PRN Administration Anxiety Apixaban 5 mg 11/01/19 21:00 11/02/19 21:50 Eliquis PO 5 mg BID CECILIA Administration Atorvastatin Calcium 40 mg 11/01/19 21:00 11/02/19 21:49 Lipitor PO 40 mg HS CECILIA Administration Carvedilol 12.5 mg 11/01/19 21:00 11/02/19 21:50 Coreg PO 12.5 mg BID CECILIA Administration Clopidogrel Bisulfate 75 mg 11/02/19 09:00 11/02/19 10:18 Plavix PO 75 mg DAILY CECILIA Administration Furosemide 40 mg 11/02/19 09:00 11/02/19 10:17 Lasix PO 40 mg DAILY CECILIA Administration Hydralazine HCl 25 mg 11/01/19 21:00 11/02/19 21:56 Apresoline PO Not Given BID CECILIA Insulin Glargine 30 units/ 0.3 mls @ 0 mls/hr 11/02/19 21:00 11/02/19 21:57 Miscellaneous Medication SC 0.3 mls HS [facility] Administration Insulin Human Lispro 10 units 11/02/19 12:00 11/02/19 18:03 Humalog SC Not Given TID-WM CECILIA Isosorbide Dinitrate 5 mg 11/01/19 21:00 11/02/19 22:04 Isordil PO 5 mg BID CECILIA Administration Levothyroxine Sodium 50 mcg 11/02/19 06:00 11/02/19 05:17 Synthroid PO 50 mcg 0600 CECILIA Administration Lisinopril 10 mg 11/02/19 09:00 11/02/19 10:16 Zestril PO 10 mg DAILY CECILIA Administration Pregabalin 100 mg 11/01/19 21:00 11/02/19 21:49 Lyrica PO 100 mg BID CECILIA Administration Ranolazine 500 mg 11/01/19 21:00 11/02/19 21:50 Ranexa PO 500 mg BID CECILIA Administration Tramadol HCl 50 mg 11/01/19 18:22 04/26/20 21:51 Ultram PO 50 mg Q6H PRN Administration Moderate Pain (4-6) - Exam General Appearance: NAD, awake alert General - other findings: morbidly obese Heart: RRR, no murmur, no gallops, no rubs Respiratory: CTAB, no wheezes, no rales, no ronchi Gastrointestinal: soft, non-tender, non-distended, normal bowel sounds Extremities: 2+ LE edema Psychiatric: normal affect, normal behavior, A&O x 3 Hosp A/P (1) Cervical spondylosis Code(s): M47.812 - SPONDYLOSIS W/O MYELOPATHY OR RADICULOPATHY, CERVICAL REGION Status: Acute (2) PATRICA (acute kidney injury) Code(s): N17.9 - ACUTE KIDNEY FAILURE, UNSPECIFIED Status: Acute (3) Orthostatic hypotension Code(s): I95.1 - ORTHOSTATIC HYPOTENSION Status: Acute (4) Afib Code(s): I48.91 - UNSPECIFIED ATRIAL FIBRILLATION Status: Chronic (5) DM type 2 (diabetes mellitus, type 2) Status: Chronic Qualifiers: 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 mellitus 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 insulin use: with 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 use Diabetes mellitus complication status: with kidney complications Diabetes mellitus complication detail: with chronic kidney disease Chronic kidney disease stage : stage 3 (moderate) Qualified Code(s): E11.22 - Type 2 diabetes mellitus with diabetic chronic kidney disease; N18.3 - Chronic kidney disease, stage 3 ( moderate); Z79.4 - intermodal truck driver (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 of insulin (6) Paroxysmal atrial fibrillation Code(s): I48.0 - PAROXYSMAL ATRIAL FIBRILLATION Status: Chronic - Plan patient's weakness and fall more likely related to orthostatic hypotenion than mild cervical spondylosis -orthostatic hypotension - will give fluids and recheck, review polypharmacy in attempt to reduced propopensity for hypotension -cervical spondylsos - pain management and PT; patient willing to attempt acute rehab prior to returning home
[2019-11-02 23:56] LABS: Anion Gap 15 mmol/L (10-20); BUN (Urea Nitrogen) 41 mg/dL (9.8-20.1); Calc. Creatinine Clearance 34 mL/min (70-130); Calcium 8.9 mg/dL (7.8-10.44); Carbon Dioxide 30 mmol/L (23-31); Chloride 91 mmol/L (98-107); Estimated GFR-MDRD 18; Glucose 213 mg/dL (80-115); Magnesium 1.6 mg/dL (1.6-2.6); Potassium 3.6 mmol/L (3.5-5.1); Sodium 132 mmol/L (136-145)
[2019-11-03 04:53] LABS: Anion Gap 13 mmol/L (10-20); BUN (Urea Nitrogen) 40 mg/dL (9.8-20.1); Calc. Creatinine Clearance 36 mL/min (70-130); Calcium 8.9 mg/dL (7.8-10.44); Carbon Dioxide 29 mmol/L (23-31); Chloride 93 mmol/L (98-107); Estimated GFR-MDRD 20; Glucose 165 mg/dL (80-115); Potassium 3.6 mmol/L (3.5-5.1); Sodium 131 mmol/L (136-145)
[2019-11-03] MEDS: Levothyroxine Sodium 50 MCG TAB PO SCH (05:39)
[2019-11-03] MEDS: Apixaban 5 MG TAB PO SCH ×2 (09:38→20:55)
[2019-11-03] MEDS: Pregabalin 50 MG CAP PO SCH ×2 (09:42→20:54)
[2019-11-03] MEDS: Carvedilol 25 MG TAB PO SCH ×2 (09:43→20:55)
[2019-11-03] MEDS: Lisinopril 20 MG TAB PO SCH (09:43)
[2019-11-03] MEDS: Furosemide 40 MG TAB PO SCH (09:45)
[2019-11-03] MEDS: Isosorbide Dinitrate 5 MG TAB PO SCH ×2 (09:45→20:53)
[2019-11-03] MEDS: Clopidogrel Bisulfate 75 MG TAB PO SCH (09:45)
[2019-11-03] MEDS: HumaLOG 300 UNITS/3 ML VIAL SC SCH ×3 (09:49→18:49)
[2019-11-03] MEDS ORDERED: Sodium Chloride 0.9% 500 ML IVPB SCH ×2 (12:00→14:45)
[2019-11-03 13:59] VITALS: BMI 36.3
--- NOTE | 2019-11-03 16:56 | EKG ---
Test Reason : STAT Blood Pressure : / mmHG Vent. Rate : 083 BPM Atrial Rate : 083 BPM P-R Int : 258 ms QRS Dur : 162 ms QT Int : 462 ms P-R-T Axes : 054 014 015 degrees QTc Int : 542 ms Sinus rhythm with first degree AV block Left bundle branch block Abnormal ECG When compared with ECG of 06-OCT-2019 06:00, Confirmed by DR. Shaka ALBERTO ([id number]) on 11/03/2019 4:56:36 PM Referred By: DEVON RODRIGEZ Confirmed By:DR. Shaka ALBERTO
[2019-11-03] MEDS ORDERED: HumaLOG 300 UNITS/3 ML VIAL SC PRN (18:10)
[2019-11-03] MEDS: ALPRAZolam 1 MG TAB PO PRN (20:53)
[2019-11-03] MEDS: Insulin Glargine 30 UNITS in Pre-Filled Syringe 1 EACH SC SCH (20:53)
[2019-11-03] MEDS: traMADol HCl 50 MG TAB PO PRN (20:54)
[2019-11-03] MEDS: Atorvastatin Calcium 40 MG TAB PO SCH (20:54)
--- NOTE | 2019-11-03 22:24 | PDOC.HOSPP ---
- Subjective Encounter Date: 11/03/19 Encounter Time: 08:00 Subjective: no overnight events. Orthostatin hypotension persists. This morning feels well and has no complains - Objective Vital Signs & Weight: Vital Signs (12 hours) Temp Pulse Pulse Pulse Pulse Pulse Resp 11/03/19 20:42 97.9 F 77 17 11/03/19 18:04 11/03/19 16:00 98.3 F 73 16 11/03/19 13:40 11/03/19 11:45 98.7 F 66 18 11/03/19 11:16 66 62 65 66 BP BP BP BP BP BP BP 11/03/19 20:42 170/74 H 11/03/19 18:04 163/76 H 138/63 11/03/19 16:00 150/62 H 11/03/19 13:40 122/67 85/52 L 11/03/19 11:45 11/03/19 11:16 80/62 L 148/75 H 145/64 H 145/76 H BP Pulse Ox 11/03/19 20:42 95 11/03/19 18:04 141/62 H 11/03/19 16:00 95 11/03/19 13:40 143/64 H 11/03/19 11:45 145/64 H 96 11/03/19 11:16 Weight Admit Weight 216 lb 8 oz Weight 218 lb 12.8 oz I&O: 11/02/19 11/03/19 11/04/19 06:59 06:59 06:59 Intake Total 400 1000 860 Output Total 0 500 Balance 400 1000 360 Result Diagrams: 11/01/19 09:56 11/03/19 04:18 Additional Labs: Accuchecks 11/03/19 11/03/19 11/03/19 20:18 18:39 10:35 POC Glucose 190 H 252 H 236 H 11/03/19 05:39 POC Glucose 169 H Hospitalist ROS - Review of Systems Constitutional: denies: fever, chills, sweats, weakness, malaise, other Respiratory: denies: cough, dry, shortness of breath, hemoptysis, SOB with excertion, pleuritic pain, sputum, wheezing, other Cardiovascular: denies: chest pain, palpitations, orthopnea, paroxysmal noc. dyspnea, edema, light headedness, other Gastrointestinal: denies: nausea, vomiting, abdominal pain, diarrhea, constipation, melena, hematochezia, other - Medication Medications: Active Medications Generic Name Dose Route Start Last Admin Trade Name Donnyq PRN Reason Stop Dose Admin Acetaminophen 1,000 mg 11/01/19 18:24 11/02/19 10:16 Tylenol PO 1,000 mg Q6H PRN Administration Moderate to Severe Pain (6-10) Alprazolam 1 mg 11/01/19 19:11 11/03/19 20:53 Xanax PO 1 mg HSPRN PRN Administration Anxiety Apixaban 5 mg 11/01/19 21:00 11/03/19 20:55 Eliquis PO 5 mg BID CECILIA Administration Atorvastatin Calcium 40 mg 11/01/19 21:00 11/03/19 20:54 Lipitor PO 40 mg HS CECILIA Administration Carvedilol 12.5 mg 11/01/19 21:00 11/03/19 20:55 Coreg PO 12.5 mg BID CECILIA Administration Clopidogrel Bisulfate 75 mg 11/02/19 09:00 11/03/19 09:45 Plavix PO 75 mg DAILY CECILIA Administration Furosemide 40 mg 11/02/19 09:00 11/03/19 09:45 Lasix PO Not Given DAILY [facility] Insulin Glargine 30 units/ 0.3 mls @ 0 mls/hr 11/02/19 21:00 11/03/19 20:53 Miscellaneous Medication SC 0.3 mls HS CECILIA Administration Insulin Human Lispro 10 units 11/02/19 12:00 11/03/19 18:49 Humalog SC Not Given TID-WM [facility] Insulin Human Lispro 0 units 11/03/19 18:10 11/03/19 18:50 Humalog SC 6 unit .MODERATE SLIDING SC PRN Administration Moderate Correctional Scale Isosorbide Dinitrate 5 mg 11/01/19 21:00 11/03/19 20:53 Isordil PO 5 mg BID CECILIA Administration Levothyroxine Sodium 50 mcg 11/02/19 06:00 11/03/19 05:39 Synthroid PO 50 mcg 0600 CECILIA Administration Lisinopril 20 mg 11/03/19 09:00 11/03/19 09:43 Zestril PO 20 mg DAILY CECILIA Administration Pregabalin 100 mg 11/01/19 21:00 11/03/19 20:54 Lyrica PO 100 mg BID CECILIA Administration Ranolazine 500 mg 11/01/19 21:00 11/03/19 20:55 Ranexa PO 500 mg BID CECILIA Administration Tramadol HCl 50 mg 11/01/19 18:22 11/03/19 20:54 Ultram PO 50 mg Q6H PRN Administration Moderate Pain (4-6) - Exam General Appearance: NAD, awake alert Heart: RRR, no murmur, no gallops, no rubs Respiratory: CTAB, no wheezes, no rales, no ronchi Gastrointestinal: soft, non-tender, non-distended, normal bowel sounds Extremities: 1+ LE edema Psychiatric: normal affect, normal behavior, A&O x 3 Hosp A/P (1) Orthostatic hypotension Code(s): I95.1 - ORTHOSTATIC HYPOTENSION Status: Acute (2) Cervical spondylosis Code(s): M47.812 - SPONDYLOSIS W/O MYELOPATHY OR RADICULOPATHY, CERVICAL REGION Status: Acute (3) PATRICA (acute kidney injury) Code(s): N17.9 - ACUTE KIDNEY FAILURE, UNSPECIFIED Status: Acute (4) Afib Code(s): I48.91 - UNSPECIFIED ATRIAL FIBRILLATION Status: Chronic (5) DM type 2 (diabetes mellitus, type 2) Status: Chronic Qualifiers: Diabetes mellitus intermediate project manager insulin use: with senior care use Diabetes mellitus complication status: with kidney complications Diabetes mellitus complication detail: with chronic kidney disease Chronic kidney disease stage : stage 3 (moderate) Qualified Code(s): E11.22 - Type 2 diabetes mellitus with diabetic chronic kidney disease; N18.3 - Chronic kidney disease, stage 3 ( moderate); Z79.4 - nursing home (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 of insulin (6) Paroxysmal atrial fibrillation Code(s): I48.0 - PAROXYSMAL ATRIAL FIBRILLATION Status: Chronic - Plan patient's weakness and fall more likely related to orthostatic hypotenion than mild cervical spondylosis -orthostatic hypotension - continues to +ve; give fluids gradually, recheck; recently adjusted medications as well -cervical spondylsos - pain management and PT; patient willing to attempt acute rehab prior to returning home expected DC 11/03
[2019-11-04] MEDS: Levothyroxine Sodium 50 MCG TAB PO SCH (05:36)
[2019-11-04] MEDS: HumaLOG 300 UNITS/3 ML VIAL SC SCH ×2 (08:00→12:00)
[2019-11-04] MEDS: Pregabalin 50 MG CAP PO SCH (08:58)
[2019-11-04] MEDS: Apixaban 5 MG TAB PO SCH (08:59)
[2019-11-04] MEDS: Carvedilol 25 MG TAB PO SCH (08:59)
[2019-11-04] MEDS: Clopidogrel Bisulfate 75 MG TAB PO SCH (08:59)
[2019-11-04] MEDS: Lisinopril 20 MG TAB PO SCH (09:00)
[2019-11-04] MEDS: Isosorbide Dinitrate 5 MG TAB PO SCH (09:00)
[2019-11-04 11:45] VITALS: BP 124/69; TEMP 97.6
--- NOTE | 2019-11-05 15:22 | EKG ---
Test Reason : Blood Pressure : / mmHG Vent. Rate : 067 BPM Atrial Rate : 067 BPM P-R Int : 250 ms QRS Dur : 170 ms QT Int : 514 ms P-R-T Axes : 064 064 093 degrees QTc Int : 543 ms Sinus rhythm with 1st degree A-V block Left bundle branch block Abnormal ECG Confirmed by YIMI [place]ihngton, MIKE ([id number]), greeting card editor JONI ROBERTS ([id number]) on 11/05/2019 3:22:10 PM Referred By: Confirmed By:MIKE GELLER M.D.
== END 2019-11-04 13:45 | disposition home or self-care (01) | DRG 551 ==
LOC: ERS 09:07 → 2SE 17:56 → OBSVTOIN 17:56 → 2NO 11-03 15:33
PROVIDERS: ADMIT Internal Medicine; ATTEND Internal Medicine
DX: M47.812 Spondylosis without myelopathy or radiculopathy, cervical region (principal); N18.6 End stage renal disease; I50.32 Chronic diastolic (congestive) heart failure; N17.9 Acute kidney failure, unspecified; I13.2 Hypertensive heart and chronic kidney disease with heart failure and with stage 5 chronic kidney disease, or end stage renal disease; I95.1 Orthostatic hypotension; I48.0 Paroxysmal atrial fibrillation; I25.10 Atherosclerotic heart disease of native coronary artery without angina pectoris; E11.22 Type 2 diabetes mellitus with diabetic chronic kidney disease; E78.5 Hyperlipidemia, unspecified; M79.7 Fibromyalgia; E66.01 Morbid (severe) obesity due to excess calories; G43.909 Migraine, unspecified, not intractable, without status migrainosus; E03.9 Hypothyroidism, unspecified; I27.20 Pulmonary hypertension, unspecified; F41.9 Anxiety disorder, unspecified; F32.9 Major depressive disorder, single episode, unspecified; M48.00 Spinal stenosis, site unspecified; M19.90 Unspecified osteoarthritis, unspecified site; G89.29 Other chronic pain; Z68.36 Body mass index [BMI] 36.0-36.9, adult; Z79.01 Long term (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 of anticoagulants; Z95.5 Presence of coronary angioplasty implant and graft; Z99.2 Dependence on renal dialysis; I25.2 Old myocardial infarction; Z90.710 Acquired absence of both cervix and uterus; Z79.899 Other long term (current) drug therapy; Z79.4 Long term (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 of insulin; Z88.8 Allergy status to other drugs, medicaments and biological substances; Z91.040 Latex allergy status; Z79.02 Long term (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 of antithrombotics/antiplatelets; Z79.890 Hormone replacement therapy; Z87.891 Personal history of nicotine dependence
CPT/HCPCS: 36415; 36416; 70450; 71045; 72125; 80048; 80053; 80306; 80307; 82550; 82553; 83690; 83735; 84484; 85025; 85610; 93005; 93010; J1815; J2405; J3010; J7030

== ENCOUNTER 2019-12-09 17:14 | Observation (INO) | payer OTHER ==
[2019-12-09 17:53] LABS: #Basophils 0.1 thou/uL (0.0-0.2); #Eosinphils 0.2 thou/uL (0.0-0.7); #Lymphocytes 1.6 thou/uL (1.20-3.40); #Monocytes 0.5 thou/uL (0.11-0.59); #Neutrophils 3.3 thou/uL (1.40-6.50); %Basophils 1.1 % (0.0-1.0); %Lymphocytes 27.8 % (21.0-51.0); %Monocytes 9.3 % (0.0-10.0); %Neutrophils 57.8 % (42.0-75.0); Hemoglobin 11.8 g/dL (12.0-16.0); Mean Corpuscular HGB CONC 33.1 g/dL (32.0-36.0); Mean Corpuscular Volume 87.6 fL (78.0-98.0); Mean Platelet Volume 8.3 fL (7.4-10.4); Platelet Count 235 thou/uL (130-400); RBC Distribution Width 15.3 % (11.5-14.5); Red Blood Cell (RBC) Count 4.08 mill/uL (4.20-5.40); White Blood Cell (WBC) Count 5.8 thou/uL (4.8-10.8)
--- NOTE | 2019-12-09 18:01 | RAD ---
CHEST ONE VIEW: 12/09/19 HISTORY: Chest pain. COMPARISON: Radiograph 11/01/19. FINDINGS: Dialysis catheter tip at cavoatrial junction. Heart size is enlarged. No pneumothorax. No effusion. N o significant edema. No acute osseous abnormality. IMPRESSION: No acute intrathoracic abnormality. POS: HOME
[2019-12-09 18:08] LABS: Prothrombin Time 13.1 sec (12.0-14.7)
[2019-12-09 18:19] LABS: ALT (SGPT) Less than 7 U/L (8-55); AST (SGOT) 6 U/L (5-34); Alkaline Phosphatase 90 U/L (40-110); Anion Gap 10 mmol/L (10-20); BUN (Urea Nitrogen) 28 mg/dL (9.8-20.1); Bilirubin, Total 0.4 mg/dL (0.2-1.2); CK (CPK) 19 U/L (29-168); Calc. Creatinine Clearance 0 mL/min (70-130); Calcium 7.4 mg/dL (7.8-10.44); Carbon Dioxide 29 mmol/L (23-31); Chloride 108 mmol/L (98-107); Estimated GFR-MDRD 34; Globulin 2.1 g/dL (2.4-3.5); Glucose 80 mg/dL (80-115); Lipase 60 U/L (8-78); Protein, Total 5.1 g/dL (6.0-8.3); Sodium 144 mmol/L (136-145)
[2019-12-09 18:27] LABS: Potassium 2.8 mmol/L (3.5-5.1)
[2019-12-09] MEDS ORDERED: Potassium Chloride 20 MEQ TAB ONE (19:11)
[2019-12-09] MEDS ORDERED: Labetalol HCl 100 MG/20 ML VIAL SLOW IVP PRN (22:37)
[2019-12-09] MEDS ORDERED: hydrALAZINE 20 MG/ML VIAL SLOW IVP PRN (22:37)
[2019-12-09] MEDS ORDERED: Morphine 2 MG/ML SYRINGE SLOW IVP PRN (22:37)
[2019-12-09] MEDS ORDERED: Promethazine HCl 12.5 MG in Sodium Chloride 0.9% 50 ML IVPB PRN (22:37)
[2019-12-09] MEDS ORDERED: HYDROcodone/Acetaminophen 5/325 mg Tablet PO PRN (22:37)
[2019-12-09] MEDS ORDERED: Acetaminophen 325 MG TAB PO PRN (22:37)
[2019-12-09] MEDS ORDERED: Guaifenesin DM 100-10/5 ML UDCUP PO PRN (22:37)
[2019-12-09] MEDS ORDERED: Ondansetron PF 4 MG/2 ML Vial IVP PRN (22:37)
[2019-12-09] MEDS ORDERED: cloNIDine 0.1 MG TAB PO PRN (22:37)
--- NOTE | 2019-12-09 22:38 | PDOC.HHP ---
Hospitalist HPI - History of Present Illness Chest pain History of Present Illness: Patient is a 64 year old female with PMH DM2, ESRD, CAD w/ stent and restenosed in Aug this year, CHF, HTN, HLD who presents to ED for chest pain which started about 3 days ago, similar to previous cardiac chest pain patient has had, substernal and radiates to L chest arm and neck, associated with shortness of breath. Denies fever, cough, pleuritic pain. In ED, EKG w/ old LBBB uinchangesd , TnI not significantly elevated, patinet admitted for cardiology eval and rule out TX. Hospitalist ROS - Review of Systems Constitutional: denies: fever, chills, sweats, weakness, malaise, other Eyes: denies: pain, vision change, conjunctivae inflammation, eyelid inflammation, redness, other ENT: denies: ear pain, ear discharge, nose pain, nose discharge, nose congestion , mouth pain, mouth swelling, throat pain, throat swelling, other Respiratory: reports: pleuritic pain. denies: cough, dry, shortness of breath, hemoptysis, SOB with excertion, sputum, wheezing, other Cardiovascular: reports: chest pain. denies: palpitations, orthopnea, paroxysmal noc. dyspnea, edema, light headedness, other Gastrointestinal: denies: nausea, vomiting, abdominal pain, diarrhea, constipation, melena, hematochezia, other Genitourinary: denies: dysuria, frequency, incontinence, hematuria, retention, other Musculoskeletal: denies: neck pain, shoulder pain, arm pain, back pain, hand pain, leg pain, foot pain, other Skin: denies: rash, lesions, chiquis, bruising, other Neurological: denies: weakness, numbness, incoordination, change in speech, confusion, seizures, other All other systems reviewed; all pertinent +/- noted in HPI/Subj - Medication Medications: atorvastatin TABLET : Strength - 40 mg : ORAL Patient Dose: 40 mg Oral once a day. tiZANidine TABLET : Strength - 4 mg : ORAL Patient Dose: 4 mg Oral 3 times a day. escitalopram oxalate TABLET : Strength - 20 mg : ORAL Patient Dose: 20 mg Oral once a day. Lyrica CAPSULE : Strength - 100 mg : ORAL Patient Dose: 100 mg Oral 2 times a day. Lantus U-100 Insulin CARTRIDGE (ML) : Strength - 100 unit/mL : SUBCUTANEOUS Patient Dose: 60 units Subcutaneous once a day (at bedtime). tamsulosin CAPSULE, EXT RELEASE 24 HR : Strength - 0.4 mg : ORAL Patient Dose: 1 null null once a day. furosemide oral TABLET : Strength - 40 mg : ORAL Patient Dose: Unknown. lisinopril TABLET : Strength - 5 mg : ORAL Patient Dose: 1 tab(s) Oral once a day. HumaLOG KwikPen Insulin INSULIN PEN (ML) : Strength - 100 unit/mL : [3 mL(s)] : SUBCUTANEOUS Patient Dose: 30 units Subcutaneous 3 times a day. glipiZIDE TABLET : Strength - 10 mg : ORAL Patient Dose: 1 tab(s) Oral 2 times a day. levothyroxine oral TABLET : Strength - 50 mcg : ORAL Patient Dose: 1 tab(s) Oral once a day. Xanax TABLET : Strength - 1 mg : ORAL Patient Dose: 1 mg Oral every 12 hours PRN. fluticasone propionate nasal SPRAY, SUSPENSION : Strength - 50 mcg : NASAL Patient Dose: 1 spray(s) Nares Both once a day. Eliquis TABLET : Strength - 5 mg : ORAL Patient Dose: 1 tab(s) Oral 2 times a day. Miralax 17 gram/dose : Strength - powder : ORAL Patient Dose: 17 g Oral once a day. Hospitalist History - Past Medical History Psych: reports: Anxiety, Depression Musculoskeletal: reports: Chronic low back pain (hx of spinal stenosis), Osteoarthritis Rheumatologic: reports: Fibromyalgia Renal/: reports: Acute renal failure, Chronic renal failure (stage 4 CKD) Endocrine: reports: Diabetes, Hypothyroidism Other Medical History: CAD, TX, stent, T2DM, HLD, COPD, CHF, hypothyroidism, NSTEMI, fibromyalgia, ESRD MWF - Past Surgical History Past Surgical History: reports: Hysterectomy Other Surgical History: CARDIAC STENT X 2; PSH REVIEWED 09-02-19, heart stents 1, Surgical history of hysterectomy , Surgical history of orthopedic surgery, RIGHT LEG, CYST FROM UNDER ARM AND LEFT SHOULDER, STENT ON 01/19/19 AFTER TX. 2 STENTS PLACED RECENTLY. RIGHT ARM SHUNT. - Family History Family History: reports: no pertinent history - Social History Alcohol: reports: None Drugs: reports: Other (Used marijuana in the past..) Other Social History: Patient denies alcohol use, Patient is a former drug user, abused marijuana, Drug history notes: QUIT 3-4 YEARS AGO, Patient has no smoking history,. - Exam General Appearance: NAD, awake alert Eye: PERRL, anicteric sclera ENT: normocephalic atraumatic, no oropharyngeal lesions, moist mucosa Neck: supple, symmetric, no JVD, no thyromegaly, no lymphadenopathy, no carotid bruit Heart: RRR, no murmur, no gallops, no rubs, normal peripheral pulses Respiratory: CTAB, no wheezes, no rales, no ronchi, normal chest expansion, no tachypnea, normal percussion Gastrointestinal: soft, non-tender, non-distended, normal bowel sounds, no palpable masses, no hepatomegaly, no splenomegaly, no bruit Extremities: no cyanosis, no clubbing, no edema Skin: normal turgor, no lesions, no rashes Neurological: cranial nerve grossly intact, normal sensation to touch, no weakness, no focal deficits, no new deficit Musculoskeletal: normal tone, normal strength, no muscle wasting Psychiatric: normal affect, normal behavior, A&O x 3 Hospitalist Results - Labs Result Diagrams: 12/10/19 05:32 12/10/19 05:32 Lab results: WBC 5.8 thou/uL (4.8-10.8) 12/09/19 17:40 Hgb 11.8 g/dL (12.0-16.0) L 12/09/19 17:40 Hct 35.7 % (36.0-47.0) L 12/09/19 17:40 MCV 87.6 fL (78.0-98.0) 12/09/19 17:40 Plt Count 235 thou/uL (130-400) 12/09/19 17:40 Neutrophils % 57.8 % (42.0-75.0) 12/09/19 17:40 Sodium 144 mmol/L (136-145) 12/09/19 17:40 Potassium 2.8 mmol/L (3.5-5.1) L* 12/09/19 17:40 Chloride 108 mmol/L (98-107) H 12/09/19 17:40 Carbon Dioxide 29 mmol/L (23-31) 12/09/19 17:40 BUN 28 mg/dL (9.8-20.1) H 12/09/19 17:40 Creatinine 1.55 mg/dL (0.6-1.1) H 12/09/19 17:40 Glucose 80 mg/dL (80-115) 12/09/19 17:40 Calcium 7.4 mg/dL (7.8-10.44) L 12/09/19 17:40 Total Bilirubin 0.4 mg/dL (0.2-1.2) 12/09/19 17:40 AST 6 U/L (5-34) 12/09/19 17:40 ALT Less than 7 U/L (8-55) L 12/09/19 17:40 Alkaline Phosphatase 90 U/L (40-110) 12/09/19 17:40 Creatine Kinase 19 U/L (29-168) L 12/09/19 17:40 Troponin I 0.024 ng/mL (< 0.028) 12/09/19 17:40 B-Natriuretic Peptide 644.8 pg/mL (0-100) H 12/09/19 17:40 Serum Total Protein 5.1 g/dL (6.0-8.3) L 12/09/19 17:40 Albumin 3.0 g/dL (3.4-4.8) L 12/09/19 17:40 Lipase 60 U/L (8-78) 12/09/19 17:40 Additional comment: VITAL SIGNS SunDec 09, 2019 17:17 GÓMEZ Brunner Nicole BP: 165/83 Pulse: 78 Resp: 18 Temp: 98.8 (Oral) Pain: 4 O2 sat: 100 on (Room Air) Time: 12/09/2019 17:17. VITAL SIGNS SunDec 09, 2019 19:40 GÓMEZ Fuentes Miranda BP: 161/68 Pulse: 82 Resp: 16 O2 sat: 99 on (Room Air) Time: 12/09/2019 19:40. VITAL SIGNS SunDec 09, 2019 22:10 GÓMEZ Castaneda Miranda BP: 156/68 Pulse: 83 Resp: 15 O2 sat: 98 on (Room Air) Time: 12/09/2019 22:10. VITAL SIGNS SunDec 09, 2019 21:00 GÓMEZ Casatneda Miranda BP: 159/70 Pulse: 86 Resp: 17 O2 sat: 100 on (Room Air) Time: 12/09/2019 21:00. - EKG Interpretation EKG: reviewed, LBBB rate 79 Hospitalist H&P A/P - Plan Plan: Patient is a 64 year old female with PMH DM2, ESRD, CAD w/ stent and restenosed in Aug this year, CHF, HTN, HLD who presents to ED for chest pain. # chest pain - similar to previous chest pain, admit to telemetry, trend enzymes , consult Dr Peter, NPO at midnight # history of CAD, TX, stent - resume home meds # hypokalemia - replete PRN #T2DM - SSI #HLD - resume home meds #COPD - PRN nebs, no wheezing on my exam #CHF - conslut nephrology to maintain volume status with HD #hypothyroidism - resume synthroid #fibromyalgia - noted #ESRD MWF HD - consult Dr Jackson
[2019-12-09 23:49] VITALS: BMI 30.9
[2019-12-09 23:58] LABS: Troponin I 0.023 ng/mL (< 0.028)
[2019-12-10] MEDS ORDERED: ALPRAZolam 1 MG TAB PO SCH ×2 (01:15→21:00)
[2019-12-10] MEDS ORDERED: traZODone HCl 50 MG TAB PO SCH ×2 (01:15→21:00)
[2019-12-10 05:47] LABS: #Basophils 0.1 thou/uL (0.0-0.2); #Eosinphils 0.2 thou/uL (0.0-0.7); #Monocytes 0.5 thou/uL (0.11-0.59); %Basophils 1.3 % (0.0-1.0); %Eosinophils 3.7 % (0.0-10.0); %Lymphocytes 34.7 % (21.0-51.0); %Monocytes 7.9 % (0.0-10.0); %Neutrophils 52.4 % (42.0-75.0); Hemoglobin 11.5 g/dL (12.0-16.0); Mean Corpuscular HGB CONC 32.1 g/dL (32.0-36.0); Mean Corpuscular Hemoglobin 28.1 pg (27.0-31.0); Mean Corpuscular Volume 87.6 fL (78.0-98.0); Mean Platelet Volume 8.7 fL (7.4-10.4); Platelet Count 201 thou/uL (130-400); RBC Distribution Width 15.2 % (11.5-14.5); Red Blood Cell (RBC) Count 4.08 mill/uL (4.20-5.40); White Blood Cell (WBC) Count 5.7 thou/uL (4.8-10.8)
[2019-12-10] MEDS: Levothyroxine Sodium 50 MCG TAB PO SCH (05:48)
[2019-12-10 06:06] LABS: Troponin I 0.025 ng/mL (< 0.028)
[2019-12-10 06:09] LABS: Anion Gap 13 mmol/L (10-20); BUN (Urea Nitrogen) 31 mg/dL (9.8-20.1); Calc. Creatinine Clearance 46 mL/min (70-130); Calcium 9.2 mg/dL (7.8-10.44); Carbon Dioxide 26 mmol/L (23-31); Chloride 101 mmol/L (98-107); Estimated GFR-MDRD 27; Glucose 219 mg/dL (80-115); Magnesium 1.9 mg/dL (1.6-2.6); Potassium 3.9 mmol/L (3.5-5.1); Sodium 136 mmol/L (136-145)
[2019-12-10] MEDS ORDERED: Dextrose 5% in Water 1,000 ML IV PRN (06:35)
[2019-12-10] MEDS ORDERED: Dextrose 50% Abboject 50 ML SYRINGE SLOW IVP PRN (06:35)
[2019-12-10] MEDS ORDERED: Isosorbide Dinitrate 5 MG TAB PO SCH (09:00)
[2019-12-10] MEDS ORDERED: Lisinopril 10 MG TAB PO SCH (09:00)
[2019-12-10 11:03] LABS: Hemoglobin 12.1 g/dL (12.0-16.0); Platelet Count 189 thou/uL (130-400)
--- NOTE | 2019-12-10 11:17 | PDOC.HOSPP ---
- Subjective Encounter Date: 12/10/19 Encounter Time: 08:30 Subjective: Patient seen and examined. No new complaints. No overnight events - Objective Vital Signs & Weight: Vital Signs (12 hours) Temp Pulse Resp BP BP Pulse Ox 12/10/19 08:35 97.6 F 78 16 151/67 H 94 L 12/10/19 03:24 98.4 F 76 18 143/66 H 94 L 12/09/19 23:42 98.1 F 93 18 138/79 96 Weight Weight 203 lb 8 oz I&O: 12/09/19 12/10/19 12/11/19 06:59 06:59 06:59 Intake Total 480 Balance 480 Result Diagrams: 12/10/19 10:55 12/10/19 05:32 Additional Labs: Accuchecks 12/10/19 11:05 POC Glucose 244 H Radiology Reviewed by me: Yes EKG Reviewed by me: Yes Hospitalist ROS - Review of Systems Eyes: denies: pain, vision change, conjunctivae inflammation, eyelid inflammation, redness, other ENT: denies: ear pain, ear discharge, nose pain, nose discharge, nose congestion , mouth pain, mouth swelling, throat pain, throat swelling, other Respiratory: denies: cough, dry, shortness of breath, hemoptysis, SOB with excertion, pleuritic pain, sputum, wheezing, other Cardiovascular: denies: chest pain, palpitations, orthopnea, paroxysmal noc. dyspnea, edema, light headedness, other Gastrointestinal: denies: nausea, vomiting, abdominal pain, diarrhea, constipation, melena, hematochezia, other Genitourinary: denies: dysuria, frequency, incontinence, hematuria, retention, other Musculoskeletal: denies: neck pain, shoulder pain, arm pain, back pain, hand pain, leg pain, foot pain, other - Medication Medications: Active Medications Generic Name Dose Route Start Last Admin Trade Name Freq PRN Reason Stop Dose Admin Hydrocodone Bitart/Acetaminophen 1 tab 12/09/19 22:37 12/10/19 00:34 Moira 5/325 PO 1 tab Q4H PRN Administration Moderate Pain (4-6) Levothyroxine Sodium 50 mcg 12/10/19 06:00 12/10/19 05:48 Synthroid PO 50 mcg 0600 CECILIA Administration - Exam General Appearance: NAD, awake alert Eye: PERRL, anicteric sclera ENT: normocephalic atraumatic, no oropharyngeal lesions Neck: supple, symmetric, no JVD Heart: RRR, no murmur, no gallops, no rubs Respiratory: CTAB, no wheezes, no rales, no ronchi Gastrointestinal: soft, non-tender, non-distended, normal bowel sounds Extremities: no cyanosis, no clubbing Skin: normal turgor, no lesions Neurological: cranial nerve grossly intact, no focal deficits Musculoskeletal: normal tone, normal strength Psychiatric: normal affect, normal behavior Hosp A/P (1) Chest pain Code(s): R07.9 - CHEST PAIN, UNSPECIFIED Status: Acute Qualifiers: Ischemic chest pain type: unspecified angina pectoris type (2) Anemia, normocytic normochromic Code(s): D64.9 - ANEMIA, UNSPECIFIED Status: Chronic (3) COPD (chronic obstructive pulmonary disease) Status: Chronic Qualifiers: COPD type: chronic bronchitis (4) Chronic kidney disease, stage 3 Code(s): N18.3 - CHRONIC KIDNEY DISEASE, STAGE 3 (MODERATE) Status: Chronic (5) DM type 2 (diabetes mellitus, type 2) Status: Chronic Qualifiers: 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 mellitus ocean transportation intermediary insulin use: with snf use Diabetes mellitus complication status: with kidney complications Diabetes mellitus complication detail: with chronic kidney disease Chronic kidney disease stage : stage 3 (moderate) Qualified Code(s): E11.22 - Type 2 diabetes mellitus with diabetic chronic kidney disease; N18.3 - Chronic kidney disease, stage 3 ( moderate); Z79.4 - buttermaker continuous churn (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 of insulin (6) Dyslipidemia Code(s): E78.5 - HYPERLIPIDEMIA, UNSPECIFIED Status: Chronic (7) HTN (hypertension) Code(s): I10 - ESSENTIAL (PRIMARY) HYPERTENSION Status: Chronic Qualifiers: Hypertension type: essential hypertension Qualified Code(s): I10 - Essential (primary) hypertension (8) Ischemic cardiomyopathy Code(s): I25.5 - ISCHEMIC CARDIOMYOPATHY Status: Chronic (9) Obesity (BMI 30.0-34.9) Code(s): E66.9 - OBESITY, UNSPECIFIED Status: Chronic (10) Paroxysmal atrial fibrillation Code(s): I48.0 - PAROXYSMAL ATRIAL FIBRILLATION Status: Chronic (11) Pulmonary HTN Code(s): I27.20 - PULMONARY HYPERTENSION, UNSPECIFIED Status: Chronic (12) Chronic combined systolic and diastolic congestive heart failure Code(s): I50.42 - CHRONIC COMBINED SYSTOLIC AND DIASTOLIC HRT FAIL Status: Chronic - Plan old records reviewed/req medication reviewed, symptomatic treatment home medication reconciled cardiology consulted nephrology consulted will repeat labs tomorrow
[2019-12-10 11:34] LABS: Troponin I 0.016 ng/mL (< 0.028)
--- NOTE | 2019-12-10 12:48 | CON ---
DATE OF CONSULTATION: REASON FOR CONSULTATION: End-stage renal disease, on maintenance hemodialysis. HISTORY OF PRESENT ILLNESS: This is a 64-year-old female, on dialysis Sunday, Sunday, and Sunday, presented to the hospital with chest pain. The patient is being ruled out for DE. The patient dialyzes Sunday, Sunday, Sunday without any complaints. PAST MEDICAL HISTORY: Significant for coronary artery disease, stent, diabetes mellitus, hypertension, hypothyroidism, end-stage renal disease, tunneled dialysis catheter, AV fistula, non-STEMI, and history of hysterectomy. SOCIAL HISTORY: No alcohol or drug use. FAMILY HISTORY: Negative for ESRD. ALLERGIES: REVIEWED. MEDICATIONS: Home medications list reviewed. Hospital medications list reviewed. REVIEW OF SYSTEMS: Fifteen-point review of system was performed, negative except for positives noted above. HEENT: Eyes intact, no diplopia. Ears: No hearing loss or earache. Nose: No discharge or bleeding. CHEST: No cough or phlegm. ABDOMEN: No nausea or vomiting. GENITOURINARY: No hematuria. No Howard catheter. MUSCULOSKELETAL: No low back pain. No joint swelling or pain. NEUROLOGICAL: No syncope. No seizures. SKIN: No complaints of rash or itching. PSYCHIATRIC: No depression. CONSTITUTIONAL: No weight loss or loss of appetite. PHYSICAL EXAMINATION: GENERAL: The patient is awake and alert. VITAL SIGNS: Afebrile, pulse 84, breathing at 16, and blood pressure 143/66. HEENT: Head normocephalic and atraumatic. Eyes intact, no ulcers. Nose intact, no ulcers. Ears intact, no ulcers. NECK: Supple. No JVD. CHEST: Symmetrical and clear. CARDIOVASCULAR: Shows S1 and S2, no rub, no murmur. GASTROINTESTINAL: Abdomen is soft, bowel sounds positive. EXTREMITIES: Show no edema or ulcers. SKIN: Shows no rash or petechiae. MUSCULOSKELETAL: Shows no joint swelling or stiffness. GENITOURINARY: Shows no Howard or CVA tenderness. NEUROLOGIC: Motor intact. Cranial nerves intact. LABORATORY DATA: Labs show creatinine was 1.86. Hemoglobin was 11.5. ASSESSMENT AND PLAN: 1. Stage 6 chronic kidney disease with creatinine lower than expected. We will order a 24-hour creatinine clearance. 2. Anemia, stable. 3. Medication based on GFR appropriate. Job ID: [id number]
[2019-12-10] MEDS: Apixaban 5 MG TAB PO SCH ×2 (13:35→21:52)
[2019-12-10] MEDS: Carvedilol 6.25 MG TAB PO SCH ×2 (13:37→21:51)
[2019-12-10] MEDS: Pregabalin 50 MG CAP PO SCH ×2 (13:38→21:50)
--- NOTE | 2019-12-10 13:45 | CON ---
DATE OF CONSULTATION: 12/10/2019 REASON FOR CONSULTATION: Chest pain. PRIMARY MENTAL HEALTH COORDINATOR: Moises Peter MD HISTORY OF PRESENT ILLNESS: Ms. Mendez is a very pleasant 64-year-old white female, who comes to the hospital for chest pain. She has been in and out of the hospital for chest pain in the last few years. She had bare metal stents placed last year and had to be re-cathed in August of this year, at which point she had in-stent restenoses of the RCA stent as well as the LAD stent. She received drug-eluting stents this time with very good results. She has very small distal vessels. She has fibromyalgia as well as chronic issues with pain. She had chest pain similar to what she has had before, so she decided to come in. She so far has been ruled out with 3 negative troponins and EKG is unchanged with a left bundle-branch block. On my evaluation today, she states that her pain is completely gone. She is feeling much better. PAST MEDICAL HISTORY: 1. Anxiety and depression. 2. Fibromyalgia. 3. Chronic low back pain. 4. Chronic renal disease, on hemodialysis. 5. Type 2 diabetes. 6. Hypothyroidism. 7. CAD. 8. Status post SC in the past with stenting as above. 9. COPD. 10. Systolic heart failure. 11. Atrial fibrillation on chronic anticoagulation with Eliquis. SURGICAL HISTORY: 1. Hysterectomy. 2. Stenting as above. 3. Right leg. 4. Cyst from underarm and left shoulder. FAMILY HISTORY: Noncontributory. SOCIAL HISTORY: No alcohol, tobacco, or drugs . REVIEW OF SYSTEMS: A 12-point review of systems was done and was all negative unless stated in the history of present illness. OUTPATIENT MEDICATIONS: Include; 1. Alprazolam p.r.n. 2. Trazodone. 3. Glipizide. 4. Ranexa 500 mg b.i.d. 5. Isosorbide dinitrate 5 mg b.i.d. 6. Insulin Lantus. 7. Lasix 40 mg a day. 8. Clopidogrel 75 mg a day. 9. Coreg 12.5 b.i.d. 10. Atorvastatin 40 mg at bedtime. 11. Eliquis 5 mg b.i.d. 12. Pregabalin 100 mg b.i.d. 13. Lisinopril 10 mg a day. 14. Levothyroxine 50 mcg a day. ALLERGIES: 1. ASPIRIN. 2. LATEX. 3. MEPERIDINE. 4. MORPHINE. PHYSICAL EXAMINATION: VITAL SIGNS: Temperature 97.7, pulse 71, respiratory rate 18, saturations 97% on room air, blood pressure 160/70, has been in the 140s to 160s in the hospital. GENERAL: Awake, alert, and oriented x3, in no distress. HEENT: Normocephalic and atraumatic. NECK: Supple. LUNGS: Clear. CARDIOVASCULAR: S1 and S2. No S3 or S4. No murmurs. ABDOMEN: Soft. Positive bowel sounds. EXTREMITIES: No edema. SKIN: Warm and dry. LABORATORY DATA: Laboratory work was reviewed. CBC with a white count of 5.7, hemoglobin 11.5, hematocrit 35, platelet count 201. Coags were unremarkable. Chemistry is unremarkable. Creatinine a little bit high with GFR of 28. Troponin was 0.02, 0.02, 0.01, completely negative. BNP of 644. UA was unremarkable. DIAGNOSTIC STUDIES: Most recent echocardiogram was done in August of this year and she had an EF of 45% to 50% with anteroseptal hypokinesis. ASSESSMENT: 1. Chronic stable angina. 2. Fibromyalgia. 3. Chest pain, atypical. 4. Coronary artery disease, status post stenting, stable. No evidence of acute coronary syndrome. PLAN: 1. We will plan on increasing her Isordil to 10 mg b.i.d. 2. We will switch her lisinopril to Entresto. We will have her stop lisinopril today and she will start Entresto Sunday morning, today is Sunday. Sunday morning, she will start a 24/26 mg twice a day of Entresto. 3. Blood pressure is not well controlled. We will see her back in the office in 1 or 2 weeks to try to control blood pressure better. This will also help her angina most likely. 4. From the cardiac perspective, she may be discharged to home at any point. Thank you for letting us to participate in the care of your patient. We will follow. Job ID: [id number]
[2019-12-10] MEDS: Polyethylene Glycol 3350 17 GM Packet PO SCH (14:03)
[2019-12-10] MEDS: Furosemide 40 MG TAB PO SCH (14:04)
[2019-12-10] MEDS: Famotidine 20 MG TAB PO SCH (14:04)
[2019-12-10] MEDS: Clopidogrel Bisulfate 75 MG TAB PO SCH (14:04)
[2019-12-10] MEDS: HumaLOG 300 UNITS/3 ML VIAL SC PRN (18:34)
[2019-12-10] MEDS ORDERED: Atorvastatin Calcium 40 MG TAB PO SCH (21:00)
[2019-12-10] MEDS ORDERED: Insulin Glargine 30 UNITS in Pre-Filled Syringe 1 EACH SC SCH (21:00)
[2019-12-10] MEDS: Isosorbide Dinitrate 5 MG TAB PO SCH (21:50)
[2019-12-10] MEDS ORDERED: HumaLOG 300 UNITS/3 ML VIAL SC PRN (22:18)
[2019-12-11 04:16] LABS: #Basophils 0.1 thou/uL (0.0-0.2); #Eosinphils 0.3 thou/uL (0.0-0.7); #Monocytes 0.5 thou/uL (0.11-0.59); #Neutrophils 2.7 thou/uL (1.40-6.50); %Eosinophils 4.9 % (0.0-10.0); %Lymphocytes 35.1 % (21.0-51.0); %Monocytes 9.7 % (0.0-10.0); %Neutrophils 49.3 % (42.0-75.0); Hemoglobin 11.8 g/dL (12.0-16.0); Mean Corpuscular HGB CONC 33.3 g/dL (32.0-36.0); Mean Corpuscular Hemoglobin 29.1 pg (27.0-31.0); Mean Corpuscular Volume 87.5 fL (78.0-98.0); Mean Platelet Volume 8.4 fL (7.4-10.4); Platelet Count 193 thou/uL (130-400); RBC Distribution Width 15.2 % (11.5-14.5); Red Blood Cell (RBC) Count 4.06 mill/uL (4.20-5.40); White Blood Cell (WBC) Count 5.6 thou/uL (4.8-10.8)
[2019-12-11 04:39] LABS: Anion Gap 12 mmol/L (10-20); BUN (Urea Nitrogen) 34 mg/dL (9.8-20.1); Calc. Creatinine Clearance 44 mL/min (70-130); Calcium 9.2 mg/dL (7.8-10.44); Carbon Dioxide 29 mmol/L (23-31); Chloride 102 mmol/L (98-107); Estimated GFR-MDRD 26; Glucose 193 mg/dL (80-115); Magnesium 1.9 mg/dL (1.6-2.6); Potassium 3.8 mmol/L (3.5-5.1); Sodium 139 mmol/L (136-145)
[2019-12-11] MEDS: Levothyroxine Sodium 50 MCG TAB PO SCH (06:23)
[2019-12-11] MEDS: HumaLOG 300 UNITS/3 ML VIAL SC PRN ×3 (06:24→17:04)
[2019-12-11] MEDS: Famotidine 20 MG TAB PO SCH (09:20)
[2019-12-11] MEDS: Apixaban 5 MG TAB PO SCH (09:20)
[2019-12-11] MEDS: Pregabalin 50 MG CAP PO SCH (09:20)
[2019-12-11] MEDS: Furosemide 40 MG TAB PO SCH (09:20)
[2019-12-11] MEDS: Isosorbide Dinitrate 5 MG TAB PO SCH (09:20)
[2019-12-11] MEDS: Carvedilol 6.25 MG TAB PO SCH (09:20)
[2019-12-11] MEDS: Clopidogrel Bisulfate 75 MG TAB PO SCH (09:20)
[2019-12-11] MEDS: Polyethylene Glycol 3350 17 GM Packet PO SCH (09:21)
--- NOTE | 2019-12-11 10:49 | DIS ---
DATE OF ADMISSION: 12/09/2019 DATE OF DISCHARGE: 12/11/2019 PRIMARY CARE PHYSICIAN: Dr. Cortez. DISCHARGE DISPOSITION: Home. PRIMARY DISCHARGE DIAGNOSIS: Chest pain, ruled out acute coronary syndrome. SECONDARY DISCHARGE DIAGNOSES: Paroxysmal atrial fibrillation, pulmonary hypertension, obesity with BMI 30, ischemic cardiomyopathy, hypertension, dyslipidemia, diabetes type 2, chronic obstructive pulmonary disease, chronic kidney disease stage 3, coronary artery disease, normocytic normochromic anemia, hypothyroidism, anxiety and depression, diabetic neuropathy, chronic anticoagulation. PRIMARY PROCEDURE/OPERATION: None. RADIOLOGICAL INVESTIGATION: Chest x-ray on admission showed no acute intracranial process. SIGNIFICANT LABORATORY DATA: WBC 5.6, hemoglobin 11.8, platelet 193. INR 1.0. Sodium 139, potassium 3.8, BUN 34, creatinine 1.93, calcium 9.2, magnesium 1.9. Urinalysis; 24-hour urine collection was done. DISCHARGE MEDICATIONS: 1. Xanax 1 mg p.o. at bedtime. 2. Lipitor 40 mg p.o. at bedtime. 3. Coreg 12.5 mg p.o. b.i.d. 4. Lasix 40 mg p.o. daily. 5. Glipizide 10 mg b.i.d. 6. Synthroid 50 mcg p.o. daily. 7. Lyrica 100 mg p.o. b.i.d. 8. Trazodone 50 mg p.o. at bedtime. 9. Eliquis 5 mg p.o. b.i.d. 10. Plavix 75 mg p.o. daily. 11. Lantus insulin 30 units subcu bedtime. 12. Isordil 10 mg p.o. b.i.d. 13. Ranexa 500 mg p.o. b.i.d. 14. Entresto 49/51 half tablet b.i.d. CONTRAINDICATION: None. CODE STATUS: Full code. INPATIENT SCRUB TECH: Dr. Peter was consulted while in hospital and he recommended to discontinue lisinopril and instead the patient was started on Entresto this admission. Dose of Isordil was also increased. Dr. Jackson was consulted and he recommended 24-hour urine collection, which was done. TEST RESULTS PENDING ON DISCHARGE: None. ALLERGIES: ASPIRIN, LATEX, MEPERIDINE, MORPHINE. DISCHARGE PLAN: Post hospital, the patient will follow up with Dr. Peter in 1 week and the patient will follow up with Dr. Jackson as instructed. HOSPITAL COURSE: A 64-year-old female with above-mentioned medical problem, who was admitted by Dr. Jimmie Maguire. Please see his H and P for further detail. The patient has multiple medical problem and she was admitted for chest pain. Chest pain episode was atypical. As the patient has multiple risk factor for coronary artery disease and that is why the patient was admitted to the hospital. Her admission EKG showed old LBBB, which was unchanged. Troponin was unremarkable. Cardiology is evaluating this patient and recommended to discontinue lisinopril and start Entresto, which was not discussed with the patient. Isordil dose was increased from 5 to 10 mg b.i.d. Nephrology was consulted for her maintenance dialysis. Nephrology recommended to do 24-hour urine collection, which was done during this admission. The patient will follow up with Nephrology as well as Cardiology as instructed. Overall, the patient is clear for discharge from all consultants. The patient is seen and examined at bedside today. PHYSICAL EXAMINATION: VITAL SIGNS: Currently, temperature 97.4, pulse 72, respiratory rate 14, saturation 98% on room air, blood pressure 150/65, weight 203 pounds. GENERAL: The patient is currently alert, awake, no acute distress. HEENT: Head, normocephalic and atraumatic. Eyes; pupils round, reactive to light. Extraocular muscle intact. ENT; oropharynx within normal limits. Moist mucous membranes. No oral lesions. No pharyngeal erythema. No exudate. NECK: Supple. No JVD. No meningeal signs of irritation. LUNGS: Clear to auscultation without any rhonchi or rales. CARDIAC: S1 and S2 regular. No murmur. No gallop. No rub. ABDOMEN: Soft, bowel sounds present, nontender, nondistended. No organomegaly. No mass. EXTREMITIES: No edema. NEUROLOGIC: Nonfocal examination. Job ID: [id number]
--- NOTE | 2019-12-11 12:06 | PRG ---
DATE OF SERVICE: 12/11/2019 SUBJECTIVE: This is a 64-year-old female, being seen for end-stage renal disease. The patient denies any nausea, vomiting, or chest pain. OBJECTIVE: GENERAL: The patient is awake and alert. VITAL SIGNS: Afebrile, pulse 69, breathing at 16, blood pressure 152/56. HEENT: Head normocephalic and atraumatic. Eyes intact, no ulcers. Nose intact, no ulcers. Ears intact, no ulcers. NECK: Supple. No JVD. CHEST: Symmetrical and clear. CARDIOVASCULAR: Shows S1 and S2, no rub, no murmur. GASTROINTESTINAL: Abdomen is soft, bowel sounds positive. EXTREMITIES: Show no edema or ulcers. SKIN: Shows no rash or petechiae. MUSCULOSKELETAL: Shows no joint swelling or stiffness. GENITOURINARY: Shows no Howard or CVA tenderness. NEUROLOGIC: Motor intact. Cranial nerves intact. LABORATORY DATA: Show hemoglobin 11.8. Creatinine 1.9. ASSESSMENT AND PLAN: Chronic kidney disease, stage 6. The patient's 24-hour creatinine clearance is pending, and we will decide on dialysis after that. Job ID: [id number]
[2019-12-11 13:35] LABS: Body Surface Area 2.05
[2019-12-11 13:57] LABS: Creatinine, Urine 84.94 mg/dL (47-110)
[2019-12-11 15:34] VITALS: TEMP 97.3
[2019-12-11 17:18] VITALS: BP 158/66
--- NOTE | 2019-12-13 14:10 | EKG ---
Test Reason : Blood Pressure : / mmHG Vent. Rate : 079 BPM Atrial Rate : 079 BPM P-R Int : 214 ms QRS Dur : 148 ms QT Int : 470 ms P-R-T Axes : 070 -13 092 degrees QTc Int : 538 ms Sinus rhythm with 1st degree A-V block Possible Left atrial enlargement Left bundle branch block Abnormal ECG Confirmed by TERRY CONDON DO ([id number]), avid editor JANELL THORNE ([id number]) on 12/13/2019 2:10:19 PM Referred By: Confirmed By:TERRY CONDON DO
== END 2019-12-11 17:32 | disposition home or self-care (01) ==
LOC: ERS 17:14 → 2NO 22:00
PROVIDERS: ADMIT Internal Medicine; ATTEND Internal Medicine
DX: R07.89 Other chest pain (principal); I48.0 Paroxysmal atrial fibrillation; I27.20 Pulmonary hypertension, unspecified; I25.5 Ischemic cardiomyopathy; I13.2 Hypertensive heart and chronic kidney disease with heart failure and with stage 5 chronic kidney disease, or end stage renal disease; E11.22 Type 2 diabetes mellitus with diabetic chronic kidney disease; N18.6 End stage renal disease; I50.42 Chronic combined systolic (congestive) and diastolic (congestive) heart failure; D63.1 Anemia in chronic kidney disease; E78.5 Hyperlipidemia, unspecified; J44.9 Chronic obstructive pulmonary disease, unspecified; I25.118 Atherosclerotic heart disease of native coronary artery with other forms of angina pectoris; E03.9 Hypothyroidism, unspecified; F41.9 Anxiety disorder, unspecified; F32.9 Major depressive disorder, single episode, unspecified; E11.40 Type 2 diabetes mellitus with diabetic neuropathy, unspecified; M19.90 Unspecified osteoarthritis, unspecified site; M79.7 Fibromyalgia; I25.2 Old myocardial infarction; F12.11 Cannabis abuse, in remission; E87.6 Hypokalemia; I44.7 Left bundle-branch block, unspecified; G89.29 Other chronic pain; M54.5 Low back pain; E66.9 Obesity, unspecified; Z68.30 Body mass index [BMI] 30.0-30.9, adult; Z79.01 Long term (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 of anticoagulants; Z79.02 Long term (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 of antithrombotics/antiplatelets; Z79.4 Long term (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 of insulin; Z79.899 Other long term (current) drug therapy; Z88.5 Allergy status to narcotic agent; Z88.8 Allergy status to other drugs, medicaments and biological substances; Z91.040 Latex allergy status; Z95.5 Presence of coronary angioplasty implant and graft; Z99.2 Dependence on renal dialysis
CPT/HCPCS: 36415; 36416; 71045; 80048; 80053; 82550; 82575; 83690; 83735; 83880; 84484; 85025; 85610; 93005; 94760; G0378; J1815

== ENCOUNTER 2020-01-02 16:19 | Emergency (ER) | payer OTHER ==
[2020-01-02 17:15] LABS: #Eosinphils 0.2 thou/uL (0.0-0.7); #Lymphocytes 1.6 thou/uL (1.20-3.40); #Monocytes 0.4 thou/uL (0.11-0.59); %Basophils 0.6 % (0.0-1.0); %Eosinophils 3.2 % (0.0-10.0); %Monocytes 8.2 % (0.0-10.0); %Neutrophils 57.1 % (42.0-75.0); Mean Corpuscular HGB CONC 33.8 g/dL (32.0-36.0); Mean Corpuscular Hemoglobin 29.2 pg (27.0-31.0); Mean Corpuscular Volume 86.2 fL (78.0-98.0); Mean Platelet Volume 9.7 fL (7.4-10.4); Platelet Count 206 thou/uL (130-400); RBC Distribution Width 14.5 % (11.5-14.5); Red Blood Cell (RBC) Count 3.42 mill/uL (4.20-5.40); White Blood Cell (WBC) Count 5.3 thou/uL (4.8-10.8)
[2020-01-02 17:40] LABS: ALT (SGPT) 8 U/L (8-55); AST (SGOT) 11 U/L (5-34); Albumin 3.4 g/dL (3.4-4.8); Alkaline Phosphatase 110 U/L (40-110); Anion Gap 13 mmol/L (10-20); BUN (Urea Nitrogen) 57 mg/dL (9.8-20.1); Bilirubin, Total 0.4 mg/dL (0.2-1.2); Calc. Creatinine Clearance 0 mL/min (70-130); Calcium 9.1 mg/dL (7.8-10.44); Carbon Dioxide 27 mmol/L (23-31); Chloride 96 mmol/L (98-107); Estimated GFR-MDRD 22; Globulin 2.8 g/dL (2.4-3.5); Glucose 145 mg/dL (80-115); Lipase 66 U/L (8-78); Potassium 4.3 mmol/L (3.5-5.1); Protein, Total 6.2 g/dL (6.0-8.3); Sodium 132 mmol/L (136-145)
--- NOTE | 2020-01-02 18:29 | CT ---
CT OF THE ABDOMEN AND PELVIS WITHOUT IV CONTRAST INDICATION: Lower abdominal pain COMPARISON: July 31, 2019 FINDINGS: The lack of IV contrast limits evaluation of the solid organs of the abdomen and pelvis. ABDOMEN: Lung bases: Mild bibasilar atelectasis and small bilateral pleural effusions Liver: No focal lesion. Gallbladder: Normal appearing. Pancreas: Normal. Adrenal glands: Normal. Spleen: Normal. Kidneys and ureters: There are bilateral renal vascular consultations. No definite renal, ureteral ca lculus or hydronephrosis is demonstrated. Vasculature: There are severe vascular calcifications seen involving the visualized vasculature. Lymph nodes:A few shotty appearing lymph nodes are seen within the periaortic region. Free fluid in abdomen:No free fluid is evident. PELVIS: Small and large bowel: Mild amount retained stool seen within the colon. Portions of the sigmoid colo n are poorly distended. Small bowel is of normal caliber. Appendix:Normal Bladder: Moderately distended. Rectal and perirectal soft tissues:Normal. Reproductive structures: Surgically absent Free fluid in pelvis: No free fluid is evident. Lymphadenopathy pelvis: No lymphadenopathy is evident. Osseous structures: No acute osseous abnormality. No destructive osteolytic or osteoblastic lesion i s identified. There is a hemangioma within the T7 vertebral level. There is scattered degenerative and osteoarthritic change present. Soft tissues:Mild anasarca IMPRESSION: 1. Small bilateral pleural effusions and mild anasarca. Recommend correlation for volume overload or CHF. 2. No definite CT especially the patient's lower abdominal pain. The bladder is moderately distended. Recommend correlation for any symptoms and signs of urinary retention or UTI.
[2020-01-02 22:47] LABS: HBSAB Concentration 0.73 mIU/mL; HBSAg Index 0.17 S/CO (0-0.99); Hep B Surf AB Non-Reactive (NonReactive); Hep B Surf Ag Non-Reactive S/CO (NonReactive)
== END 2020-01-03 00:53 | disposition home or self-care (01) ==
LOC: ERS 16:19
DX: R11.2 Nausea with vomiting, unspecified (principal); R10.9 Unspecified abdominal pain; J44.9 Chronic obstructive pulmonary disease, unspecified; E11.9 Type 2 diabetes mellitus without complications; E78.00 Pure hypercholesterolemia, unspecified; I11.0 Hypertensive heart disease with heart failure; I50.30 Unspecified diastolic (congestive) heart failure; E03.9 Hypothyroidism, unspecified; I25.2 Old myocardial infarction; G43.909 Migraine, unspecified, not intractable, without status migrainosus; I25.10 Atherosclerotic heart disease of native coronary artery without angina pectoris; I48.91 Unspecified atrial fibrillation; E66.9 Obesity, unspecified; F41.9 Anxiety disorder, unspecified; F32.9 Major depressive disorder, single episode, unspecified; Z79.4 Long term (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 of insulin; Z79.899 Other long term (current) drug therapy
CPT/HCPCS: 36415; 74176; 80053; 83605; 83690; 85025; 86706; 87340; J1644

== ENCOUNTER 2020-03-12 04:40 | Inpatient (IN) | payer OTHER ==
--- NOTE | 2020-03-12 06:33 | PDOC.EVN ---
Event Note - Event Note Event Note: [id number]
[2020-03-12 06:45] LABS: Troponin I 0.064 ng/mL (< 0.028)
[2020-03-12] MEDS ORDERED: Furosemide 100 MG/10 ML VIAL SLOW IVP SCH (07:00)
--- NOTE | 2020-03-12 07:02 | HP ---
CHIEF COMPLAINT: Chest pain. HISTORY OF PRESENT ILLNESS: Ms. Mendez is a 64-year-old female, who is being transferred from [facility] after she presented with chest pain. The patient reports that her pain began approximately 9:00 p.m. last night. Described as heaviness. She also had shortness of breath that improved with breathing treatment at home prior to going to the emergency room. The patient had a nonproductive cough that she relates to her asthma. She denies fever, chills, nausea, or vomiting. She was admitted last month due to atrial fibrillation and acute coronary syndrome. She reports that she had a stent placed by Dr. Peter at that time. She also reports that she had a dialysis fistula placed in the right upper extremity. She reports that she go for dialysis once a week every Sunday. Workup in the emergency room, the patient had elevated BNP more than 3000. Troponin is detectable, but downtrending from before. Currently, patient is feeling better. Chest pain is improved. The patient is being admitted to hospital for further management. PAST MEDICAL HISTORY: 1. Myocardial infarction. 2. Chronic obstructive pulmonary disease. 3. Hypertension. 4. Diabetes mellitus. 5. Hypothyroidism. 6. Atrial fibrillation. 7. Fibromyalgia. 8. Non ST-elevation myocardial infarction. PAST SURGICAL HISTORY: 1. Cardiac stents. 2. Hysterectomy. 3. Right leg surgery. 4. Right chest shunt and right arm shunt. PAST PSYCHIATRIC HISTORY: Anxiety and depression. FAMILY HISTORY: Reviewed and noncontributory. SOCIAL HISTORY: Denies alcohol use. She is a former drug user, abuse marijuana. Denies alcohol use. No smoking history. HOME MEDICATIONS: Please see home medication reconciliation form for updated medications. ALLERGIES: ALLERGIC TO ADHESIVE TAPE, ASPIRIN, DEMEROL, LATEX, MEPERIDINE, MORPHINE. REVIEW OF SYSTEMS: Review of 14 systems negative except what is mentioned in the history of present illness. PHYSICAL EXAMINATION: VITAL SIGNS: Blood pressure 146/76, pulse is 101, respiratory rate is 19, temperature 97.8. HEAD AND NECK: Normocephalic, atraumatic. Neck is supple. CHEST: Decreased air entry bilaterally. HEART: Irregular. ABDOMEN: Obese, soft. Bowel sounds present. NEUROLOGIC: Awake, alert, moving extremities. PSYCH: Unable to assess. EXTREMITIES: No clubbing, no cyanosis. LABORATORY DATA: WBC 9.3, hemoglobin 9.6, platelets . Sodium 132, potassium 4.1, BUN is 38, creatinine 2.6, troponin is 0.03. Chest x-ray shows pulmonary vascular congestion and possible right effusion, small. ASSESSMENT: 1. Acute chest pain. 2. End-stage renal disease, on hemodialysis. 3. Chronic obstructive pulmonary disease. 4. Coronary artery disease. 5. Diabetes mellitus, type 2. 6. Hypertension. 7. Obesity. PLAN: 1. Admit. 2. Telemetry monitoring. 3. Serial troponins. 4. Consult patient's telecommunicator for evaluation and further management. 5. Will give the patient one dose of Lasix, reassess in a.m., consult patient's script coordinator for evaluation and further management. 6. Reconcile home medications. 7. Deep venous thrombosis prophylaxis appropriate. 8. Expected length of stay, 1 midnight if patient is stable and further workup negative. Job ID: [id number]
--- NOTE | 2020-03-12 10:31 | PDOC.HOSPP ---
- Subjective Encounter Date: 03/12/20 Encounter Time: 10:29 Subjective: Ms. Mendez was seen today in follow-up of chest pain. She notes back pain, but she says this is where she experiences angina. She denies any shortness of breath. She notes some soreness in her right arm where she recently had an AV fistula placed. No drainage. - Objective Vital Signs & Weight: Vital Signs (12 hours) Temp Pulse Resp BP Pulse Ox 03/12/20 08:19 97.5 F L 91 16 136/74 100 Weight Weight 217 lb 8 oz - Exam Eye: PERRL, anicteric sclera Heart: RRR, no murmur, no rubs, normal peripheral pulses Respiratory: CTAB, no wheezes Gastrointestinal: soft, non-tender, non-distended, normal bowel sounds, no palpable masses Extremities: no cyanosis (+ mild erythemaround the mid incision on the right arm , no drainage or warmth.), no edema Hosp A/P (1) Chest pain Code(s): R07.9 - CHEST PAIN, UNSPECIFIED Status: Acute Qualifiers: Ischemic chest pain type: unspecified angina pectoris type (2) DM type 2 (diabetes mellitus, type 2) Status: Chronic Qualifiers: Diabetes mellitus nursing home insulin use: with nursing home use Diabetes mellitus complication status: with kidney complications Diabetes mellitus complication detail: with chronic kidney disease Chronic kidney disease stage : stage 3 (moderate) Qualified Code(s): E11.22 - Type 2 diabetes mellitus with diabetic chronic kidney disease; N18.3 - Chronic kidney disease, stage 3 ( moderate); 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 * Continue nitrates, and aspirin , plavix and re-start Eliquis, and Ranexa * Cardiology has been consulted * HTN- re-start her home medications * DN- reconcile and re-start her home medications * Incision- does not appear infected, just normal erythema in healing process- will place Silvadene cream daily as precaution.
[2020-03-12 10:37] LABS: Troponin I 0.065 ng/mL (< 0.028)
[2020-03-12] MEDS: ALPRAZolam 1 MG TAB PO PRN ×2 (10:54→20:55)
[2020-03-12] MEDS ORDERED: Silver Sulfadiazine 50 GM TUBE TOP SCH (11:00)
[2020-03-12] MEDS ORDERED: Heparin 10,000 UNITS/ 10 ML VIAL ONE (11:07)
[2020-03-12 14:04] LABS: SARS-CoV-2 MS2 Positive; SARS-CoV-2 N Gene Negative; SARS-CoV-2 S Gene Negative; SARS-CoV-2 by NAA Not Detected (NotDetected); SARS-CoV-2 orf1ab Negative
[2020-03-12 15:48] LABS: Hemoglobin 10.4 g/dL (12.0-16.0); Mean Corpuscular HGB CONC 33.2 g/dL (32.0-36.0); Mean Corpuscular Volume 90.4 fL (78.0-98.0); Mean Platelet Volume 9.3 fL (7.4-10.4); Platelet Count 233 thou/uL (130-400); RBC Distribution Width 13.6 % (11.5-14.5); Red Blood Cell (RBC) Count 3.48 mill/uL (4.20-5.40); White Blood Cell (WBC) Count 5.8 thou/uL (4.8-10.8)
[2020-03-12 15:56] LABS: Anion Gap 17 mmol/L (10-20); BUN (Urea Nitrogen) 37 mg/dL (9.8-20.1); Calc. Creatinine Clearance 34 mL/min (70-130); Calcium 8.7 mg/dL (7.8-10.44); Carbon Dioxide 26 mmol/L (23-31); Chloride 91 mmol/L (98-107); Estimated GFR-MDRD 18; Glucose 137 mg/dL (80-115); Potassium 4.4 mmol/L (3.5-5.1); Sodium 130 mmol/L (136-145)
[2020-03-12] MEDS ORDERED: EPOETIN ALFA-EPBX (ESRD) 10,000 UNIT/ML VIAL SC SCH (16:00)
[2020-03-12 16:15] LABS: Band 1 % (5-11); Eosinophils 1 % (0-10); Lymphocytes 23 % (21-51); MDiff Complete? YES; Monocytes 4 % (0-10); Neutrophil 71 % (42-75); Platelet Morphology Comment Appears Adequate; RBC Morphology Normal
--- NOTE | 2020-03-12 16:40 | CON ---
DATE OF CONSULTATION: 03/12/2020 INDICATION FOR CONSULTATION: A 64-year-old female with history of coronary artery disease, has undergone angioplasty and stent placement, who also has a history of mild congestive heart failure in the past and significant end-stage renal disease, who presented yesterday to an outside emergency room with shortness of breath and chest discomfort. Her EKG has a left bundle branch block pattern, difficult to determine if there is any ischemia or not. She does have some indeterminate cardiac enzymes. Troponin I is 0.064 and then the next set was 0.065. At this time, she is pain free. She mainly said she was short of breath and had some chest discomfort; however, she is very lethargic at this time. She was given Xanax earlier today. It is very difficult for the patient to even stay awake to continue the assessment and plan. Back in August of this year, she underwent angioplasty and stent placement for redo stenosis in the left anterior artery and right coronary artery. At which time, she was found to have in-stent restenoses from previous stent. In August, she was implanted with a 3.0 x 32 Synergy drug-eluting stent to the left anterior descending artery and a 2.5 x 28 mm stent, also Synergy drug-eluting stent to the right coronary artery. At that time, the left circumflex was shown to have moderate disease, but was felt best to treat medically. At this time, her pain is resolved and she does not appear to be short of breath. I had to wake her several times during the evaluation and she apparently was not significantly uncomfortable or short of breath at that time. Apparently, according to the record, she does have very small vessels, distal disease most likely due to long-standing diabetes. Normally, she tells she gets dialysis only one time a week. PAST MEDICAL HISTORY: Significant for coronary artery disease, angioplasty and stent placed as noted above. She has fibromyalgia. She has anxiety and depression. She has chronic pain syndrome involving the lower back. She has chronic renal insufficiency. She is on hemodialysis once a week. Type 2 diabetes, hypothyroidism. She has suffered a myocardial infarction in the past, apparently with previous stents being placed. She has COPD, history of systolic heart failure. Her last echocardiogram was on February 17, 2020, which showed ejection fraction of 40% to 45% with left ventricular hypertrophy and diastolic dysfunction with significant left atrial dilatation and moderate mitral valve regurgitation. She also has chronic atrial fibrillation, apparently is on Eliquis. PAST SURGICAL HISTORY: She has had surgery on the right leg. She has had a hysterectomy. She has had shunt placements for her dialysis and she recently had a shunt placed in the right arm. She has also had cyst underneath the left arm and shoulder. FAMILY HISTORY: Noncontributory. SOCIAL HISTORY: She has no alcohol or tobacco abuse. REVIEW OF SYSTEMS: A 12-point review of systems is relatively unremarkable except what was noted in the history of present illness. MEDICATIONS: At this time include, 1. Eliquis 2.5 mg b.i.d. 2. Atorvastatin 40 mg a day. 3. Coreg 12.5 mg b.i.d. She has also been placed on, 1. Plavix 75 mg a day. 2. Lasix 80 mg IV, which has now been held. She was given one dose I believe. She is on, 1. Glucotrol 20 mg b.i.d. 2. Levothyroxine 50 mcg once a day. 3. Lisinopril 10 mg a day. She is on, 1. Lyrica 100 mg b.i.d. 2. Ranexa 500 mg b.i.d. She is on, 1. Trazodone 50 mg q.p.m. 2. Alprazolam as needed. ALLERGIES: SHE HAS MULTIPLE ALLERGIES WHICH INCLUDE ADHESIVE TAPE, DEMEROL, FENTANYL. SHE SAYS SHE IS ALLERGIC TO ASPIRIN, LATEX, MEPERIDINE, AND MORPHINE. PHYSICAL EXAMINATION: GENERAL: Reveals a morbidly obese female, who is very lethargic. VITAL SIGNS: Show blood pressure 131/69. Heart rate is in the 90s and shows left bundle branch block, appears to be regular at this time, but may be underlying atrial fibrillation. There is no new 12-lead EKG on the chart. We will ask for an EKG. She is afebrile. O2 saturation is 100%. Respiratory rate is about 18. HEENT: Shows the head to be normocephalic and atraumatic. Carotid pulses are present. I did not hear any bruits. CHEST: Actually has some fine bibasilar rales. CARDIOVASCULAR: Reveals a regular rate and rhythm. She has what appears to be regular rate and rhythm at this time. She has S1 and S2. I did not hear any significant murmurs, heaves, thrills, bruits, or rubs, but however heart sounds are a little slightly distant. ABDOMEN: Shows morbid obesity. Positive bowel sounds are present. EXTREMITIES: Show no clubbing, cyanosis, or edema. Pedal pulses are difficult to palpate but are present. She has multiple areas of excoriations on the lower extremities and what appears to be some mild ecchymoses after she has been scratching, it appears that she has had some history of bedbugs. LABORATORY DATA: Shows a sodium of 132, potassium of 4.1, and creatinine was 2.66 with a BUN of 38. Blood sugar was 179. Hemoglobin A1c was 6.9%. Her BNP was 3238. Troponin I was 0.64, increased up to 0.065. Her CPK-MB was negative. Hemoglobin is 9.6, hematocrit 29.5, WBC of 9.2 with a platelet count of 265,000. Chest x-ray does show small bilateral pleural effusions with some interstitial edema. IMPRESSION: 1. Elderly, morbidly obese female with congestive heart failure exacerbation, which may be due to volume overload associated with her renal disease. She may need to undergo dialysis in order to alleviate some of the fluid. She has been given IV diuretics. We will see whether or not she has any improvement with her symptoms. She does appear to be comfortable at this time. I do not see that she is having any labored breathing at all. There are no I's and O's on the chart. We will continue to monitor the patient with you. 2. History of coronary artery disease. She has had some chest discomfort; however, the enzymes did not indicate any significant acute ST-segment or any acute myocardial infarction at this time. We will continue to monitor the enzymes. Should she continue to have chest discomfort, she may need to undergo cardiac catheterization, but in view of the left bundle branch block, it is difficult to determine whether or not she is having ongoing ischemia. 3. Chronic renal disease. Again, she will need to be seen most likely by Nephrology and most likely will need to undergo hemodialysis in order to improve her volume status. 4. Type 2 diabetes which will be dealt with by the primary care service. 5. Some history of chronic obstructive pulmonary disease. This appears to be relatively stable at this time. 6. History of atrial fibrillation. I cannot tell at this time whether or not she is in atrial fibrillation, whether or not this is sinus rhythm. At times, EKG does appear to be a sinus rhythm. We will obtain a 12-lead EKG. Further recommendations will depend on the progress of the patient. Would also advise that the patient be seen by Nephrology for possible hemodialysis. Job ID: [id number]
[2020-03-12] MEDS: traMADol HCl 50 MG TAB PO PRN (18:45)
[2020-03-12] MEDS: glipiZIDE 10 MG TAB PO SCH (20:40)
[2020-03-12] MEDS: traZODone HCl 50 MG TAB PO SCH (20:40)
[2020-03-12] MEDS: Apixaban 5 MG TAB PO SCH (20:40)
[2020-03-12] MEDS: Carvedilol 6.25 MG TAB PO SCH (20:41)
[2020-03-12] MEDS: Pregabalin 75 MG CAP PO SCH (20:41)
[2020-03-13] MEDS: Levothyroxine Sodium 50 MCG TAB PO SCH (05:10)
--- NOTE | 2020-03-13 07:23 | CON ---
DATE OF CONSULTATION: 03/12/2020 CONSULTING PHYSICIAN: Mendez Irene MD REASON FOR CONSULTATION: End-stage renal disease evaluation and care. REASON FOR ADMISSION: Shortness of breath. HISTORY OF PRESENT ILLNESS: This is a 64-year-old female with history of end-stage renal disease, hypertension, diabetes, hypothyroidism, who came to the hospital with shortness of breath. She is getting dialysis once a week now. Last dialysis was this Sunday per her schedule. No fever or chills. No nausea or vomiting. The patient was also found to have . PAST MEDICAL HISTORY: Positive for coronary artery disease, COPD, hypertension, diabetes, end-stage renal disease, and fibromyalgia. PAST SURGICAL HISTORY: Dialysis shunt placement, right leg surgery, hysterectomy. HOME MEDICATIONS: Reviewed. ALLERGIES: ADHESIVE TAPE, ASPIRIN, LATEX, AND MORPHINE. SOCIAL HISTORY: No smoking, alcohol, or illicit drug abuse. FAMILY HISTORY: No history of kidney history. REVIEW OF SYSTEMS: CONSTITUTIONAL: Negative for weight loss or gain, ability to conduct usual activities. SKIN: Negative for rash, itching. EYES: Negative for double vision, pain. ENT/MOUTH: Negative for nose bleeding, neck stiffness, pain, tenderness. CARDIOVASCULAR: Negative for palpitations, dyspnea on exertion, orthopnea. RESPIRATORY: Negative for shortness of breath, wheezing, cough, hemoptysis, fever or night sweats. GASTROINTESTINAL: Negative for poor appetite, abdominal pain, heartburn, nausea, vomiting, constipation, or diarrhea. GENITOURINARY: Negative for urgency, frequency, dysuria, nocturia. MUSCULOSKELETAL: Negative for pain, swelling. NEUROLOGIC/PSYCHIATRIC: Negative for anxiety, depression. ALLERGY/IMMUNOLOGIC: Negative for skin rash, bleeding tendency. PHYSICAL EXAMINATION: GENERAL: This is a well-built female, in no apparent distress. VITAL SIGNS: Temperature 97.6, . HEENT: Atraumatic, normocephalic. Oral mucosa moist. NECK: Supple. CV: S1 and S2. Rate and rhythm regular. RESPIRATORY: Clear. GASTROINTESTINAL: Abdomen is soft. MUSCULOSKELETAL: No tenderness. No edema. DERMATOLOGIC: No skin rash. NEUROLOGIC: Alert and awake. PSYCHIATRIC: Mood and affect normal. LABORATORY DATA: Potassium 4.1, BUN is 38, and creatinine is 2.6. Hemoglobin is 9.6. ASSESSMENT AND PLAN: 1. End-stage renal disease, on hemodialysis. Plan is to have extra session of dialysis today. 2. Elevated BNP. 3. Edema. We will remove fluid. 4. Hyponatremia. Limit fluid intake. 5. Hypertension. Give a dose of Epogen and continue dialysis as tolerated. Dialysis nurse notified. Thank you for the consult. Job ID: [id number]
[2020-03-13] MEDS: Apixaban 5 MG TAB PO SCH ×2 (09:04→20:45)
[2020-03-13] MEDS: glipiZIDE 10 MG TAB PO SCH ×2 (09:05→20:45)
[2020-03-13] MEDS: Pregabalin 75 MG CAP PO SCH ×2 (09:05→20:45)
[2020-03-13] MEDS: Carvedilol 6.25 MG TAB PO SCH ×2 (09:05→20:45)
[2020-03-13] MEDS: Clopidogrel Bisulfate 75 MG TAB PO SCH (09:05)
[2020-03-13] MEDS: Atorvastatin Calcium 40 MG TAB PO SCH (09:07)
[2020-03-13] MEDS: Silver Sulfadiazine 50 GM TUBE TOP SCH (09:07)
[2020-03-13] MEDS: Lisinopril 10 MG TAB PO SCH (09:07)
[2020-03-13] MEDS ORDERED: Dextrose 5% in Water 1,000 ML IV PRN (11:53)
[2020-03-13] MEDS ORDERED: Dextrose 50% Abboject 50 ML SYRINGE SLOW IVP PRN (11:53)
[2020-03-13] MEDS ORDERED: HumaLOG 300 UNITS/3 ML VIAL SC PRN (11:53)
[2020-03-13] MEDS ORDERED: Torsemide 20 MG TAB PO SCH (12:45)
--- NOTE | 2020-03-13 14:15 | PRG ---
DATE OF SERVICE: 03/13/2020 SUBJECTIVE: Patient was seen and examined at bedside and overnight events noted. Patient denies any shortness of breath or chest pain or palpitation. No history of nausea or vomiting or diarrhea or fever or chills or cramps. OBJECTIVE: GENERAL: This is well-built female, in no apparent distress. VITAL SIGNS: Temperature 98.9. Heart Rate 93. Respiratory rate 20. Blood pressure 99/55. HEENT: Atraumatic, normocephalic. Oral mucosa is moist. NECK: Supple. CARDIOVASCULAR: S1, S2 heard. Rate and rhythm regular. RESPIRATORY: Clear to auscultation. GASTROINTESTINAL: Abdomen is soft. MUSCULOSKELETAL: No tenderness. No edema. DERMATOLOGIC: No skin rash. NEUROLOGIC: Alert and awake and oriented x3. No focal neurologic deficits. Moving all the extremities. PSYCHIATRIC: Mood and affect normal. LABORATORY DATA: Not done today. ASSESSMENT AND PLAN: 1. End-stage renal disease. Had an extra session of dialysis today and feeling better. 2. Fluid overload. The patient is currently having only once a week dialysis. We will have torsemide to her regimen for volume management. 3. Edema. 4. Hyponatremia. 5. Hypertension. Plan to add torsemide to her regimen and limit fluid and salt intake. Job ID: [id number]
--- NOTE | 2020-03-13 14:17 | PDOC.CPN ---
- Subjective Date: 03/13/20 Time: 14:22 Interval history: The pt seen and examined. No overnight events. No cardiac complaints. However, she cont. having thightness in ABD, which has been more than 1 year per the pt. - Objective Allergies/Adverse Reactions: Allergies Allergy/AdvReac Type Severity Reaction Status Date / Time adhesive tape Allergy Verified 02/27/20 11:07 aspirin Allergy Verified 02/27/20 11:07 latex Allergy Verified 02/27/20 11:07 meperidine [From Demerol] Allergy Verified 02/27/20 11:07 morphine Allergy Verified 02/27/20 11:07 lace Allergy Uncoded 02/27/20 11:07 Visit Medications: Current Medications Alprazolam (Xanax) 1 mg PO TIDPRN PRN PRN Reason: Anxiety Last Admin: 03/12/20 20:55 Dose: 1 mg Apixaban (Eliquis) 2.5 mg PO BID [facility] Last Admin: 03/13/20 09:04 Dose: 2.5 mg Atorvastatin Calcium (Lipitor) 40 mg PO DAILY [facility] Last Admin: 03/13/20 09:07 Dose: 40 mg Carvedilol (Coreg) 12.5 mg PO BID [facility] Last Admin: 03/13/20 09:05 Dose: 12.5 mg Clopidogrel Bisulfate (Plavix) 75 mg PO DAILY [facility] Last Admin: 03/13/20 09:05 Dose: 75 mg Dextrose/Water (Dextrose 50%) 25 gm SLOW IVP PRN PRN PRN Reason: Hypoglycemia Epoetin Solis-epbx (Retacrit) 10,000 unit SC Q7D [facility] Last Admin: 03/12/20 18:46 Dose: 10,000 unit Glipizide (Glucotrol) 20 mg PO BID [facility] Last Admin: 03/13/20 09:05 Dose: 20 mg Glucagon (Glucagon) 1 mg IM PRN PRN PRN Reason: Hypoglycemia Dextrose/Water (D5w) 1,000 mls @ 0 mls/hr IV .Q0M PRN PRN Reason: Hypoglycemia Insulin Human Lispro (Humalog) 0 units SC .MILD SLIDING SCALE PRN PRN Reason: Mild Correctional Scale Last Admin: 03/13/20 12:09 Dose: 3 unit Levothyroxine Sodium (Synthroid) 50 mcg PO 0600 [facility] Last Admin: 03/13/20 05:10 Dose: 50 mcg Lisinopril (Zestril) 10 mg PO DAILY [facility] Last Admin: 03/13/20 09:07 Dose: 10 mg Pregabalin (Lyrica) 100 mg PO BID [facility] Last Admin: 03/13/20 09:05 Dose: 100 mg Ranolazine (Ranexa) 500 mg PO BID [facility] Last Admin: 03/13/20 09:05 Dose: 500 mg Silver Sulfadiazine (Silver Sulfadiazine) 1 gm TOP DAILY [facility] Last Admin: 03/13/20 09:07 Dose: 1 applic Sodium Chloride (Flush - Normal Saline) 10 ml IVF Q12HR [facility] Last Admin: 03/13/20 09:07 Dose: 10 ml Sodium Chloride (Flush - Normal Saline) 10 ml IVF PRN PRN PRN Reason: Saline Flush Torsemide (Demadex) 40 mg PO DAILY [facility] Torsemide (Demadex) 40 mg PO NOW [facility] Stop: 03/13/20 15:00 Last Admin: 03/13/20 13:36 Dose: 40 mg Tramadol HCl (Ultram) 50 mg PO Q6H PRN PRN Reason: Mild-Moderate Pain (1-5) Last Admin: 03/12/20 18:45 Dose: 50 mg Trazodone HCl (Desyrel) 50 mg PO [facility] Last Admin: 03/12/20 20:40 Dose: 50 mg Vital Signs & Weight: Vital Signs Temp Pulse Resp BP Pulse Ox 03/13/20 11:26 98.9 F 93 20 99/55 L 99 03/13/20 07:45 97.8 F 76 18 125/58 L 97 03/13/20 04:40 97.5 F L 79 12 131/56 L 100 03/13/20 02:19 97 Admit Weight 217 lb 8 oz Weight 210 lb 8.663 oz - Physical Exam General: alert & oriented x3 HEENT: mucus membranes moist Neck: supple neck Cardiac: regular rate and rhythm, S1/S2 Lungs: decreased breath sounds Neuro: cranial nerve 2-12 intact Extremities: no edema - Labs Result Diagrams: 03/12/20 15:30 03/12/20 15:30 Troponin/CKMB Troponin I 0.065 ng/mL (< 0.028) H 03/12/20 10:01 - Telemetry Sinus rhythms and dysrhythmias: sinus rhythm - Assessment/Plan Assessment/Plan: 1. Chest pain in adult - will order Stress test since the pt has had PTCA with stent placement x 3 times in last 1 year 2. CAD with s/p C with POOJA in mid LAD in 01/2019; BMS in RCA and prox LAD in 04/2019; and POOJA in prox LAD and RCA for re-stenosis in LAD and RCA and mod- severe stenosis in Lt Cx in 08/2019 - On Coreg, lisinopril, and Plavix; not on ASA since she is on Eliquis 3. chronic Afib - on Coreg and Eliquis 2.5mg BID; 4. ESRD with HD once a wk as out pt - she had HD yesterday 5. chronic Systolic HF 6. HTN - stable 7. COPD 8. DM type 2 9. ABD discomfort MAR reviewed * s/p LHC with POOJA in mid LAD in 01/2019; BMS in RCA and prox LAD in 04/2019; and POOJA in prox LAD and RCA for re-stenosis in LAD and RCA and mod-severe stenosis in Lt Cx in 08/2019 Pt. seen and eval. by me. I agree with the A/P by the MANAGER GAME. Chest clear. RRR. Plan for stress test. If abnormal may need repeat cath. Not a good candidate for CABG.
--- NOTE | 2020-03-13 16:40 | PDOC.HOSPP ---
- Subjective Encounter Date: 03/13/20 Encounter Time: 10:30 Subjective: Pt seen for followup re: chest pain. Reports pain is better. - Objective Vital Signs & Weight: Vital Signs (12 hours) Temp Pulse Resp BP Pulse Ox 03/13/20 16:24 97.2 F L 77 16 115/60 99 03/13/20 11:26 98.9 F 93 20 99/55 L 99 03/13/20 07:45 97.8 F 76 18 125/58 L 97 03/13/20 04:40 97.5 F L 79 12 131/56 L 100 Weight Admit Weight 217 lb 8 oz Weight 210 lb 8.663 oz I&O: 03/12/20 03/13/20 03/14/20 06:59 06:59 06:59 Output Total 500 Balance -500 Result Diagrams: 03/12/20 15:30 03/12/20 15:30 Additional Labs: Accuchecks 03/13/20 03/13/20 03/12/20 11:29 05:14 20:55 POC Glucose 227 H 152 H 167 H 03/12/20 17:10 POC Glucose 129 H Labs and MARs reviewed by me EKG Reviewed by me: Yes (Tele: NSR) Hospitalist ROS - Review of Systems Cardiovascular: denies: chest pain, palpitations, orthopnea, paroxysmal noc. dyspnea, edema, light headedness Gastrointestinal: denies: nausea, vomiting, abdominal pain, diarrhea, constipation, melena, hematochezia - Medication Medications: Active Medications Generic Name Dose Route Start Last Admin Trade Name Freq PRN Reason Stop Dose Admin Alprazolam 1 mg 03/12/20 10:04 03/12/20 20:55 Xanax PO 1 mg TIDPRN PRN Administration Anxiety Apixaban 2.5 mg 03/12/20 21:00 03/13/20 09:04 Eliquis PO 2.5 mg BID [facility] Administration Atorvastatin Calcium 40 mg 03/13/20 09:00 03/13/20 09:07 Lipitor PO 40 mg DAILY [facility] Administration Carvedilol 12.5 mg 03/12/20 21:00 03/13/20 09:05 Coreg PO 12.5 mg BID [facility] Administration Clopidogrel Bisulfate 75 mg 03/13/20 09:00 03/13/20 09:05 Plavix PO 75 mg DAILY [facility] Administration Epoetin Solis-epbx 10,000 unit 03/12/20 16:00 03/12/20 18:46 Retacrit SC 10,000 unit Q7D [facility] Administration Glipizide 20 mg 03/12/20 21:00 03/13/20 09:05 Glucotrol PO 20 mg BID [facility] Administration Insulin Human Lispro 0 units 03/13/20 11:53 03/13/20 12:09 Humalog SC 3 unit .MILD SLIDING SCALE PRN Administration Mild Correctional Scale Levothyroxine Sodium 50 mcg 03/13/20 06:00 03/13/20 05:10 Synthroid PO 50 mcg 0600 [facility] Administration Lisinopril 10 mg 03/13/20 09:00 03/13/20 09:07 Zestril PO 10 mg DAILY [facility] Administration Pregabalin 100 mg 03/12/20 21:00 03/13/20 09:05 Lyrica PO 100 mg BID [facility] Administration Ranolazine 500 mg 03/12/20 21:00 03/13/20 09:05 Ranexa PO 500 mg BID [facility] Administration Silver Sulfadiazine 1 gm 03/13/20 09:00 03/13/20 09:07 Silver Sulfadiazine TOP 1 applic DAILY [facility] Administration Sodium Chloride 10 ml 03/12/20 09:00 03/13/20 09:07 Flush - Normal Saline IVF 10 ml Q12HR [facility] Administration Tramadol HCl 50 mg 03/12/20 10:04 03/12/20 18:45 Ultram PO 50 mg Q6H PRN Administration Mild-Moderate Pain (1-5) Trazodone HCl 50 mg 03/12/20 21:00 03/12/20 20:40 Desyrel PO 50 mg HS [facility] Administration - Exam General Appearance: awake alert Eye: anicteric sclera ENT: moist mucosa Neck: supple Heart: RRR Respiratory: CTAB Gastrointestinal: soft, non-tender Extremities: no clubbing Musculoskeletal: no muscle wasting Psychiatric: normal affect, normal behavior Hosp A/P - Plan (1) Chest pain Code(s): R07.9 - CHEST PAIN, UNSPECIFIED Status: Acute Qualifiers: Ischemic chest pain type: unspecified angina pectoris type (2) DM type 2 (diabetes mellitus, type 2) Status: Chronic Qualifiers: Diabetes mellitus chcf insulin use: with chcf use Diabetes mellitus complication status: with kidney complications Diabetes mellitus complication detail: with chronic kidney disease Chronic kidney disease stage : stage 3 (moderate) Qualified Code(s): E11.22 - Type 2 diabetes mellitus with diabetic chronic kidney disease; N18.3 - Chronic kidney disease, stage 3 ( moderate); Z79.4 - senior care (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 of insulin (3) ESRD (end stage renal disease) on dialysis Code(s): N18.6 - END STAGE RENAL DISEASE; Z99.2 - DEPENDENCE ON RENAL DIALYSIS Status: Chronic (4) HTN (hypertension) Code(s): I10 - ESSENTIAL (PRIMARY) HYPERTENSION Status: Chronic Qualifiers: Hypertension type: essential hypertension Qualified Code(s): I10 - Essential (primary) hypertension - Plan * Plan for cath on Sunday * Continue apixaban * HTN- monitor vital signs and titrate antihypertensives as needed * DM- start accuchecks and ISS * Incision- does not appear infected, just normal erythema in healing process * Per case management, pt meets criteria for inpatient admission. Will change status to Inpt.
[2020-03-13] MEDS: ALPRAZolam 1 MG TAB PO PRN (20:45)
[2020-03-13] MEDS: traMADol HCl 50 MG TAB PO PRN (20:45)
[2020-03-13] MEDS: traZODone HCl 50 MG TAB PO SCH (20:45)
[2020-03-14] MEDS: Levothyroxine Sodium 50 MCG TAB PO SCH (05:40)
[2020-03-14] MEDS: Pregabalin 75 MG CAP PO SCH ×2 (08:51→20:07)
[2020-03-14] MEDS: Apixaban 5 MG TAB PO SCH ×2 (08:51→20:09)
[2020-03-14] MEDS: Torsemide 20 MG TAB PO SCH (08:51)
[2020-03-14] MEDS: Atorvastatin Calcium 40 MG TAB PO SCH (08:51)
[2020-03-14] MEDS: Clopidogrel Bisulfate 75 MG TAB PO SCH (08:51)
[2020-03-14] MEDS: glipiZIDE 10 MG TAB PO SCH ×2 (08:52→20:10)
[2020-03-14] MEDS: Lisinopril 10 MG TAB PO SCH (08:52)
[2020-03-14] MEDS: Silver Sulfadiazine 50 GM TUBE TOP SCH (08:53)
[2020-03-14] MEDS: Carvedilol 6.25 MG TAB PO SCH ×2 (08:53→20:10)
[2020-03-14] MEDS ORDERED: Regadenoson 0.4 MG/5 ML SYRINGE ONE (11:13)
--- NOTE | 2020-03-14 14:27 | PRG ---
DATE OF SERVICE: 03/14/2020 SUBJECTIVE: Patient was seen and examined at bedside and overnight events noted. Patient denies any shortness of breath or chest pain or palpitation. No history of nausea or vomiting or diarrhea or fever or chills or cramps. OBJECTIVE: GENERAL: This is a well-built female, in no apparent distress. VITAL SIGNS: Temperature 96.6. Heart rate 70. Respiratory rate 20. Blood pressure 144/71. HEENT: Atraumatic, normocephalic. Oral mucosa is moist NECK: Supple. CARDIOVASCULAR: S1, S2 heard. Rate and rhythm regular. RESPIRATORY: Clear to auscultation. GASTROINTESTINAL: Abdomen is soft. MUSCULOSKELETAL: No tenderness. No edema. DERMATOLOGIC: No skin rash. NEUROLOGIC: Alert and awake and oriented X3. No focal neurologic deficits. Moving all the extremities. PSYCHIATRIC: Mood and affect normal. LABORATORY DATA: Not done today. ASSESSMENT AND PLAN: 1. End-stage renal disease. Continue dialysis. 2. Edema. 3. Hypertension. 4. Anemia of chronic disease. 5. Continue dialysis as tolerated. Job ID: [id number]
--- NOTE | 2020-03-14 14:49 | PDOC.CPN ---
- Subjective Date: 03/14/20 Time: 10:50 Interval history: The pt seen and examined. No overnight events. No cardiac complaints. She denied ABD tightness today - Objective Allergies/Adverse Reactions: Allergies Allergy/AdvReac Type Severity Reaction Status Date / Time adhesive tape Allergy Verified 02/27/20 11:07 aspirin Allergy Verified 02/27/20 11:07 latex Allergy Verified 02/27/20 11:07 meperidine [From Demerol] Allergy Verified 02/27/20 11:07 morphine Allergy Verified 02/27/20 11:07 lace Allergy Uncoded 02/27/20 11:07 Visit Medications: Current Medications Alprazolam (Xanax) 1 mg PO TIDPRN PRN PRN Reason: Anxiety Last Admin: 03/13/20 20:45 Dose: 1 mg Apixaban (Eliquis) 2.5 mg PO BID [facility] Last Admin: 03/14/20 08:51 Dose: 2.5 mg Atorvastatin Calcium (Lipitor) 40 mg PO DAILY [facility] Last Admin: 03/14/20 08:51 Dose: 40 mg Carvedilol (Coreg) 12.5 mg PO BID [facility] Last Admin: 03/14/20 08:53 Dose: Not Given Clopidogrel Bisulfate (Plavix) 75 mg PO DAILY [facility] Last Admin: 03/14/20 08:51 Dose: 75 mg Dextrose/Water (Dextrose 50%) 25 gm SLOW IVP PRN PRN PRN Reason: Hypoglycemia Epoetin Slois-epbx (Retacrit) 10,000 unit SC Q7D [facility] Last Admin: 03/12/20 18:46 Dose: 10,000 unit Glipizide (Glucotrol) 20 mg PO BID [facility] Last Admin: 03/14/20 08:52 Dose: Not Given Glucagon (Glucagon) 1 mg IM PRN PRN PRN Reason: Hypoglycemia Dextrose/Water (D5w) 1,000 mls @ 0 mls/hr IV .Q0M PRN PRN Reason: Hypoglycemia Insulin Human Lispro (Humalog) 0 units SC .MILD SLIDING SCALE PRN PRN Reason: Mild Correctional Scale Last Admin: 03/13/20 12:09 Dose: 3 unit Levothyroxine Sodium (Synthroid) 50 mcg PO 0600 [facility] Last Admin: 03/14/20 05:40 Dose: 50 mcg Lisinopril (Zestril) 10 mg PO DAILY [facility] Last Admin: 03/14/20 08:52 Dose: Not Given Pregabalin (Lyrica) 100 mg PO BID [facility] Last Admin: 03/14/20 08:51 Dose: 100 mg Ranolazine (Ranexa) 500 mg PO BID [facility] Last Admin: 03/14/20 08:51 Dose: 500 mg Silver Sulfadiazine (Silver Sulfadiazine) 1 gm TOP DAILY [facility] Last Admin: 03/14/20 08:53 Dose: 1 applic Sodium Chloride (Flush - Normal Saline) 10 ml IVF Q12HR [facility] Last Admin: 03/14/20 08:54 Dose: 10 ml Sodium Chloride (Flush - Normal Saline) 10 ml IVF PRN PRN PRN Reason: Saline Flush Torsemide (Demadex) 40 mg PO DAILY [facility] Last Admin: 03/14/20 08:51 Dose: 40 mg Tramadol HCl (Ultram) 50 mg PO Q6H PRN PRN Reason: Mild-Moderate Pain (1-5) Last Admin: 03/13/20 20:45 Dose: 50 mg Trazodone HCl (Desyrel) 50 mg PO HS [facility] Last Admin: 03/13/20 20:45 Dose: 50 mg Vital Signs & Weight: Vital Signs Temp Pulse Resp BP Pulse Ox 03/14/20 12:26 96.6 F L 78 20 144/71 H 100 03/14/20 09:00 96 03/14/20 08:32 97.5 F L 77 16 119/56 L 100 03/14/20 05:30 98.1 F 78 16 111/57 L 100 Admit Weight 217 lb 8 oz Weight 217 lb 11.2 oz - Physical Exam General: alert & oriented x3 HEENT: mucus membranes moist Neck: supple neck Cardiac: regular rate and rhythm, S1/S2 Lungs: decreased breath sounds Extremities: no edema - Labs Result Diagrams: 03/12/20 15:30 03/12/20 15:30 Troponin/CKMB Troponin I 0.065 ng/mL (< 0.028) H 03/12/20 10:01 - Telemetry Sinus rhythms and dysrhythmias: sinus rhythm - Assessment/Plan Assessment/Plan: 1. Chest pain in adult - denied any cardiac complaints today; will order Stress test today for hx of PTCA with stent placement x 3 times in last 1 year 2. CAD with s/p LHC with POOJA in mid LAD in 01/2019; BMS in RCA and prox LAD in 04/2019; and POOJA in prox LAD and RCA for re-stenosis in LAD and RCA and mod- severe stenosis in Lt Cx in 08/2019 - On Coreg, lisinopril, and Plavix; not on ASA since she is on Eliquis 3. Chronic Afib - on Coreg and Eliquis 2.5mg BID; 4. ESRD with HD once a wk as out pt - she had HD yesterday 5. chronic Systolic HF - stable with RA; on Coreg and HD 6. HTN - stable 7. COPD - stable with RA 8. DM type 2 9. ABD discomfort - denied today MAR reviewed * s/p LHC with POOJA in mid LAD in 01/2019; BMS in RCA and prox LAD in 04/2019; and POOJA in prox LAD and RCA for re-stenosis in LAD and RCA and mod-severe stenosis in Lt Cx in 08/2019 * Dr Peter's pt
--- NOTE | 2020-03-14 17:49 | NM ---
CARDIAC SPECT: CLINICAL HISTORY: 64-year-old female with chest pain, VA, stent, coronary artery disease, atrial fibrillation, COPD, as thma, diabetes, and dyslipidemia. TECHNIQUE: A myocardial perfusion scan was performed using the single isotope one day protocol with technetium-9 9m sestamibi. 10 mCi were injected intravenously for the rest exam followed by 29 mCi for the stress exam. Pharmacologic stress with Lexiscan was monitored and interpreted by Shaka Cannon NP. FINDINGS: There is a fixed defect in the inferoseptal wall. There is a small defect in the distal anterior wall on the stress images with incomplete reversibility at rest. GATED SPECT LVEF: 28%. WALL MOTION EXAM: Global hypokinesis. IMPRESSION: Small area of probable partially reversible distal anterior wall ischemia. POS: JOYCE
--- NOTE | 2020-03-14 18:54 | PDOC.HOSPP ---
- Subjective Encounter Date: 03/14/20 Encounter Time: 18:30 Subjective: Patient seen for follow-up regarding chest discomfort. No chest pain today. - Objective Vital Signs & Weight: Vital Signs (12 hours) Temp Pulse Resp BP Pulse Ox 03/14/20 12:26 96.6 F L 78 20 144/71 H 100 03/14/20 09:00 96 03/14/20 08:32 97.5 F L 77 16 119/56 L 100 Weight Admit Weight 217 lb 8 oz Weight 217 lb 11.2 oz I&O: 03/13/20 03/14/20 03/15/20 06:59 06:59 06:59 Intake Total 720 Output Total 500 350 Balance -500 370 Result Diagrams: 03/12/20 15:30 03/12/20 15:30 Additional Labs: Accuchecks 03/14/20 03/14/20 03/14/20 17:13 10:39 05:47 POC Glucose 139 H 110 114 H 03/13/20 16:29 POC Glucose 103 I reviewed patient's labs and MAR EKG Reviewed by me: Yes (Telemetry: Normal sinus rhythm) Hospitalist ROS - Review of Systems Cardiovascular: denies: chest pain, palpitations, orthopnea, paroxysmal noc. dyspnea, edema, light headedness Gastrointestinal: denies: nausea, vomiting, abdominal pain, diarrhea, constipation, melena, hematochezia - Medication Medications: Active Medications Generic Name Dose Route Start Last Admin Trade Name Freq PRN Reason Stop Dose Admin Alprazolam 1 mg 03/12/20 10:04 03/13/20 20:45 Xanax PO 1 mg TIDPRN PRN Administration Anxiety Apixaban 2.5 mg 03/12/20 21:00 03/14/20 08:51 Eliquis PO 2.5 mg BID [facility] Administration Atorvastatin Calcium 40 mg 03/13/20 09:00 03/14/20 08:51 Lipitor PO 40 mg DAILY [facility] Administration Carvedilol 12.5 mg 03/12/20 21:00 03/14/20 08:53 Coreg PO Not Given BID [facility] Clopidogrel Bisulfate 75 mg 03/13/20 09:00 03/14/20 08:51 Plavix PO 75 mg DAILY [facility] Administration Epoetin Solis-epbx 10,000 unit 03/12/20 16:00 03/12/20 18:46 Retacrit SC 10,000 unit Q7D [facility] Administration Glipizide 20 mg 03/12/20 21:00 03/14/20 08:52 Glucotrol PO Not Given BID [facility] Insulin Human Lispro 0 units 03/13/20 11:53 03/13/20 12:09 Humalog SC 3 unit .MILD SLIDING SCALE PRN Administration Mild Correctional Scale Levothyroxine Sodium 50 mcg 03/13/20 06:00 03/14/20 05:40 Synthroid PO 50 mcg 0600 [facility] Administration Lisinopril 10 mg 03/13/20 09:00 03/14/20 08:52 Zestril PO Not Given DAILY [facility] Pregabalin 100 mg 03/12/20 21:00 03/14/20 08:51 Lyrica PO 100 mg BID [facility] Administration Ranolazine 500 mg 03/12/20 21:00 03/14/20 08:51 Ranexa PO 500 mg BID [facility] Administration Silver Sulfadiazine 1 gm 03/13/20 09:00 03/14/20 08:53 Silver Sulfadiazine TOP 1 applic DAILY [facility] Administration Sodium Chloride 10 ml 03/12/20 09:00 03/14/20 08:54 Flush - Normal Saline IVF 10 ml Q12HR [facility] Administration Torsemide 40 mg 03/14/20 09:00 03/14/20 08:51 Demadex PO 40 mg DAILY [facility] Administration Tramadol HCl 50 mg 03/12/20 10:04 03/13/20 20:45 Ultram PO 50 mg Q6H PRN Administration Mild-Moderate Pain (1-5) Trazodone HCl 50 mg 03/12/20 21:00 03/13/20 20:45 Desyrel PO 50 mg HS [facility] Administration - Exam General Appearance: awake alert General - other findings: Obese Eye: anicteric sclera ENT: moist mucosa Neck: supple Heart: RRR Respiratory: CTAB Gastrointestinal: soft, non-tender Extremities: no cyanosis Musculoskeletal: no muscle wasting Psychiatric: normal affect, normal behavior Hosp A/P - Plan (1) Chest pain Code(s): R07.9 - CHEST PAIN, UNSPECIFIED Status: Acute Qualifiers: Ischemic chest pain type: unspecified angina pectoris type (2) DM type 2 (diabetes mellitus, type 2) Status: Chronic Qualifiers: Diabetes mellitus oil heaterman insulin use: with skilled nursing use Diabetes mellitus complication status: with kidney complications Diabetes mellitus complication detail: with chronic kidney disease Chronic kidney disease stage : stage 3 (moderate) Qualified Code(s): E11.22 - Type 2 diabetes mellitus with diabetic chronic kidney disease; N18.3 - Chronic kidney disease, stage 3 ( moderate); Z79.4 - jail (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 of insulin (3) ESRD (end stage renal disease) on dialysis Code(s): N18.6 - END STAGE RENAL DISEASE; Z99.2 - DEPENDENCE ON RENAL DIALYSIS Status: Chronic (4) HTN (hypertension) Code(s): I10 - ESSENTIAL (PRIMARY) HYPERTENSION Status: Chronic Qualifiers: Hypertension type: essential hypertension Qualified Code(s): I10 - Essential (primary) hypertension - Plan Patient had stress test today, she has global hypokinesis and a small area of reversible ischemia. Will await further opinion from cardiology service. Dialysis per nephrology service. Continue torsemide.
[2020-03-14] MEDS: traZODone HCl 50 MG TAB PO SCH (20:10)
[2020-03-14] MEDS: ALPRAZolam 1 MG TAB PO PRN (20:15)
--- NOTE | 2020-03-15 05:43 | DIS ---
DATE OF ADMISSION: 03/13/2020 DATE OF DISCHARGE: 03/14/2020 PRIMARY CARE PROVIDER: Dr. Dana Bella. DISCHARGE DIAGNOSES: 1. Volume overload. 2. COVID-19 test negative. 3. Chest discomfort. 4. Chest discomfort, most likely secondary to musculoskeletal etiology. CONSULTATIONS DURING THIS HOSPITALIZATION: 1. Cardiology, Dr. Solis. 2. Nephrology, Dr. Pretty. CONDITION OF PATIENT ON THE DAY OF DISCHARGE: Stable. I assessed, Ms. Mendez on the day of discharge. She denies any chest pain or shortness of breath. PHYSICAL EXAMINATION: VITAL SIGNS: Stable. S1 and S2 are heard, regular. LUNGS: Clear to auscultation bilaterally. DISCHARGE MEDICATIONS: She has been started on torsemide 40 mg daily. Otherwise, no change was made to her pre-admission home medications. HOSPITAL COURSE: Ms. Mendez is a pleasant 64-year-old lady, who was admitted to [facility] on March 14, 2020 for volume overload. She was seen by Cardiology and Nephrology Services. She underwent hemodialysis with improvement in her symptoms. She also underwent nuclear stress test, which showed a small area of probable partially reversible distal anterior wall ischemia. At the time of this dictation, cardiology opinion is pending. If she is cleared by Cardiology Service, she will be discharged home. DIET: Heart healthy and renal. ACTIVITY: As tolerated. DISCHARGE DESTINATION: Home. TIME SPENT: Total amount of time spent coordinating this discharge: 32 minutes. Job ID: [id number]
[2020-03-15] MEDS: Levothyroxine Sodium 50 MCG TAB PO SCH (05:59)
[2020-03-15] MEDS: Pregabalin 75 MG CAP PO SCH ×2 (08:37→20:19)
[2020-03-15] MEDS: Lisinopril 10 MG TAB PO SCH (08:37)
[2020-03-15] MEDS: glipiZIDE 10 MG TAB PO SCH ×3 (08:37→20:21)
[2020-03-15] MEDS: Carvedilol 6.25 MG TAB PO SCH ×2 (08:37→20:21)
[2020-03-15] MEDS: Atorvastatin Calcium 40 MG TAB PO SCH (08:37)
[2020-03-15] MEDS: Apixaban 5 MG TAB PO SCH ×2 (08:38→20:24)
[2020-03-15] MEDS: Silver Sulfadiazine 50 GM TUBE TOP SCH (08:39)
[2020-03-15] MEDS: Torsemide 20 MG TAB PO SCH (08:39)
[2020-03-15] MEDS: Clopidogrel Bisulfate 75 MG TAB PO SCH (08:39)
[2020-03-15] MEDS: ALPRAZolam 1 MG TAB PO PRN ×2 (08:45→20:21)
[2020-03-15] MEDS: traMADol HCl 50 MG TAB PO PRN ×2 (08:45→20:22)
[2020-03-15 09:34] LABS: Anion Gap 16 mmol/L (10-20); BUN (Urea Nitrogen) 42 mg/dL (9.8-20.1); Calc. Creatinine Clearance 34 mL/min (70-130); Calcium 8.8 mg/dL (7.8-10.44); Carbon Dioxide 24 mmol/L (23-31); Chloride 92 mmol/L (98-107); Estimated GFR-MDRD 18; Glucose 122 mg/dL (80-115); Potassium 4.9 mmol/L (3.5-5.1); Sodium 127 mmol/L (136-145)
--- NOTE | 2020-03-15 12:13 | PRG ---
DATE OF SERVICE: 03/15/2020 SUBJECTIVE: A 64-year-old female, being seen for end-stage renal disease. The patient denied nausea, vomiting, or chest pain. PHYSICAL EXAMINATION: General: The patient is awake and alert. Vital Signs: Afebrile, pulse 79, breathing at 16, blood pressure 143/67. HEENT: Head normocephalic and atraumatic. Eyes intact, no ulcers. Nose intact, no ulcers. Ears intact, no ulcers. Neck: Supple. No JVD. Chest: Symmetrical and clear. Cardiovascular: Shows S1 and S2, no rub, no murmur. Gastrointestinal: Abdomen is soft, bowel sounds positive. Extremities: Show no edema or ulcers. Skin: Shows no rash or petechiae. Musculoskeletal: Shows no joint swelling or stiffness. Genitourinary: Shows no Howard or CVA tenderness. Neurologic: Motor intact. Cranial nerves intact. LABORATORY DATA: Labs show hemoglobin 10.4. Creatinine 2.6. ASSESSMENT AND PLAN: 1. Chronic kidney disease, stage 6. Plan dialysis. 2. Hypertension, stable. 3. Anemia, stable. The patient had a 24-hour creatinine clearance which was 12 at the [facility] in [place]. Job ID: [id number]
--- NOTE | 2020-03-15 16:35 | PDOC.HOSPP ---
- Subjective Encounter Date: 03/15/20 Encounter Time: 16:33 Subjective: Pt seen for followup re: chest pain. denies chest pain at this time. - Objective Vital Signs & Weight: Vital Signs (12 hours) Temp Pulse Resp BP Pulse Ox 03/15/20 16:02 97.5 F L 76 18 118/56 L 97 03/15/20 11:55 97.5 F L 73 18 113/58 L 99 03/15/20 08:50 98 03/15/20 08:36 97.7 F 79 15 143/67 H 98 Weight Admit Weight 217 lb 8 oz Weight 216 lb 3.2 oz I&O: 03/14/20 03/15/20 03/16/20 06:59 06:59 06:59 Intake Total 720 980 Output Total 350 Balance 370 980 Result Diagrams: 03/12/20 15:30 03/15/20 09:05 Additional Labs: Accuchecks 03/15/20 03/14/20 03/14/20 05:47 20:31 17:13 POC Glucose 133 H 182 H 139 H Labs and MARs reviewed by me EKG Reviewed by me: Yes (Tele: NSR) Hospitalist ROS - Review of Systems Constitutional: denies: fever, chills, sweats, weakness, malaise Cardiovascular: denies: chest pain, palpitations, orthopnea, paroxysmal noc. dyspnea, edema, light headedness - Medication Medications: Active Medications Generic Name Dose Route Start Last Admin Trade Name Freq PRN Reason Stop Dose Admin Alprazolam 1 mg 03/12/20 10:04 03/15/20 08:45 Xanax PO 1 mg TIDPRN PRN Administration Anxiety Apixaban 2.5 mg 03/12/20 21:00 03/15/20 08:38 Eliquis PO 2.5 mg BID [facility] Administration Atorvastatin Calcium 40 mg 03/13/20 09:00 03/15/20 08:37 Lipitor PO 40 mg DAILY [facility] Administration Carvedilol 12.5 mg 03/12/20 21:00 03/15/20 08:37 Coreg PO 12.5 mg BID [facility] Administration Clopidogrel Bisulfate 75 mg 03/13/20 09:00 03/15/20 08:39 Plavix PO 75 mg DAILY [facility] Administration Epoetin Solis-epbx 10,000 unit 03/12/20 16:00 03/12/20 18:46 Retacrit SC 10,000 unit Q7D [facility] Administration Glipizide 20 mg 03/12/20 21:00 03/15/20 08:44 Glucotrol PO Not Given BID [facility] Insulin Human Lispro 0 units 03/13/20 11:53 03/13/20 12:09 Humalog SC 3 unit .MILD SLIDING SCALE PRN Administration Mild Correctional Scale Levothyroxine Sodium 50 mcg 03/13/20 06:00 03/15/20 05:59 Synthroid PO 50 mcg 0600 [facility] Administration Lisinopril 10 mg 03/13/20 09:00 03/15/20 08:37 Zestril PO 10 mg DAILY [facility] Administration Pregabalin 100 mg 03/12/20 21:00 03/15/20 08:37 Lyrica PO 100 mg BID [facility] Administration Ranolazine 500 mg 03/12/20 21:00 03/15/20 08:39 Ranexa PO 500 mg BID [facility] Administration Silver Sulfadiazine 1 gm 03/13/20 09:00 03/15/20 08:39 Silver Sulfadiazine TOP 1 applic DAILY [facility] Administration Sodium Chloride 10 ml 03/12/20 09:00 03/15/20 08:40 Flush - Normal Saline IVF 10 ml Q12HR [facility] Administration Torsemide 40 mg 03/14/20 09:00 03/15/20 08:39 Demadex PO 40 mg DAILY [facility] Administration Tramadol HCl 50 mg 03/12/20 10:04 03/15/20 08:45 Ultram PO 50 mg Q6H PRN Administration Mild-Moderate Pain (1-5) Trazodone HCl 50 mg 03/12/20 21:00 03/14/20 20:10 Desyrel PO 50 mg HS [facility] Administration - Exam General - other findings: Obese Eye: anicteric sclera ENT: moist mucosa Neck: supple Heart: RRR Respiratory: CTAB Gastrointestinal: soft, non-tender Extremities: no cyanosis Psychiatric: normal affect, normal behavior Hosp A/P - Plan (1) Chest pain Code(s): R07.9 - CHEST PAIN, UNSPECIFIED Status: Acute Qualifiers: Ischemic chest pain type: unspecified angina pectoris type (2) DM type 2 (diabetes mellitus, type 2) Status: Chronic Qualifiers: Diabetes mellitus fci insulin use: with terminal clerk use Diabetes mellitus complication status: with kidney complications Diabetes mellitus complication detail: with chronic kidney disease Chronic kidney disease stage : stage 3 (moderate) Qualified Code(s): E11.22 - Type 2 diabetes mellitus with diabetic chronic kidney disease; N18.3 - Chronic kidney disease, stage 3 ( moderate); Z79.4 - extermination supervisor (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 of insulin (3) ESRD (end stage renal disease) on dialysis Code(s): N18.6 - END STAGE RENAL DISEASE; Z99.2 - DEPENDENCE ON RENAL DIALYSIS Status: Chronic (4) HTN (hypertension) Code(s): I10 - ESSENTIAL (PRIMARY) HYPERTENSION Status: Chronic Qualifiers: Hypertension type: essential hypertension Qualified Code(s): I10 - Essential (primary) hypertension - Plan Pt had an abnormal stress test, going for cath tomorrow. Dialysis per nephrology service. HTN controlled.
--- NOTE | 2020-03-15 17:15 | PDOC.CPN ---
- Subjective Date: 03/15/20 Time: 17:13 Interval history: No new issues. - Review of Systems General: denies: fever/chills, weight/appetite/sleep changes, night sweats, fatigue Respiratory: denies: cough, congestion, shortness of breath, exercise intolerance Cardiovascular: denies: chest pain, palpitation, edema, paroxysmal nocturnal dyspnea, orthopnea Gastrointestinal: denies: nausea, vomiting, diarrhea, constipation, abd pain, GI bleeding Musculoskeletal: denies: pain, tenderness, stiffness, swelling, arthritis/ arthralgias Neurological: denies: numbness, syncope, seizure, weakness - Objective Allergies/Adverse Reactions: Allergies Allergy/AdvReac Type Severity Reaction Status Date / Time adhesive tape Allergy Verified 02/27/20 11:07 aspirin Allergy Verified 02/27/20 11:07 latex Allergy Verified 02/27/20 11:07 meperidine [From Demerol] Allergy Verified 02/27/20 11:07 morphine Allergy Verified 02/27/20 11:07 lace Allergy Uncoded 02/27/20 11:07 Visit Medications: Current Medications Alprazolam (Xanax) 1 mg PO TIDPRN PRN PRN Reason: Anxiety Last Admin: 03/15/20 08:45 Dose: 1 mg Apixaban (Eliquis) 2.5 mg PO BID [facility] Last Admin: 03/15/20 08:38 Dose: 2.5 mg Atorvastatin Calcium (Lipitor) 40 mg PO DAILY [facility] Last Admin: 03/15/20 08:37 Dose: 40 mg Carvedilol (Coreg) 12.5 mg PO BID [facility] Last Admin: 03/15/20 08:37 Dose: 12.5 mg Clopidogrel Bisulfate (Plavix) 75 mg PO DAILY [facility] Last Admin: 03/15/20 08:39 Dose: 75 mg Dextrose/Water (Dextrose 50%) 25 gm SLOW IVP PRN PRN PRN Reason: Hypoglycemia Epoetin Solis-epbx (Retacrit) 10,000 unit SC Q7D [facility] Last Admin: 03/12/20 18:46 Dose: 10,000 unit Glipizide (Glucotrol) 20 mg PO BID [facility] Last Admin: 03/15/20 08:44 Dose: Not Given Glucagon (Glucagon) 1 mg IM PRN PRN PRN Reason: Hypoglycemia Dextrose/Water (D5w) 1,000 mls @ 0 mls/hr IV .Q0M PRN PRN Reason: Hypoglycemia Insulin Human Lispro (Humalog) 0 units SC .MILD SLIDING SCALE PRN PRN Reason: Mild Correctional Scale Last Admin: 03/13/20 12:09 Dose: 3 unit Levothyroxine Sodium (Synthroid) 50 mcg PO 0600 [facility] Last Admin: 03/15/20 05:59 Dose: 50 mcg Lisinopril (Zestril) 10 mg PO DAILY [facility] Last Admin: 03/15/20 08:37 Dose: 10 mg Pregabalin (Lyrica) 100 mg PO BID [facility] Last Admin: 03/15/20 08:37 Dose: 100 mg Ranolazine (Ranexa) 500 mg PO BID [facility] Last Admin: 03/15/20 08:39 Dose: 500 mg Silver Sulfadiazine (Silver Sulfadiazine) 1 gm TOP DAILY [facility] Last Admin: 03/15/20 08:39 Dose: 1 applic Sodium Chloride (Flush - Normal Saline) 10 ml IVF Q12HR [facility] Last Admin: 03/15/20 08:40 Dose: 10 ml Sodium Chloride (Flush - Normal Saline) 10 ml IVF PRN PRN PRN Reason: Saline Flush Torsemide (Demadex) 40 mg PO DAILY [facility] Last Admin: 03/15/20 08:39 Dose: 40 mg Tramadol HCl (Ultram) 50 mg PO Q6H PRN PRN Reason: Mild-Moderate Pain (1-5) Last Admin: 03/15/20 08:45 Dose: 50 mg Trazodone HCl (Desyrel) 50 mg PO HS [facility] Last Admin: 03/14/20 20:10 Dose: 50 mg Vital Signs & Weight: Vital Signs Temp Pulse Resp BP Pulse Ox 03/15/20 16:02 97.5 F L 76 18 118/56 L 97 03/15/20 11:55 97.5 F L 73 18 113/58 L 99 03/15/20 08:50 98 03/15/20 08:36 97.7 F 79 15 143/67 H 98 Admit Weight 217 lb 8 oz Weight 216 lb 3.2 oz - Physical Exam General: alert & oriented x3 HEENT: mucus membranes moist Neck: supple neck Cardiac: regular rate and rhythm Lungs: normal breath sounds Neuro: grossly intact Abdomen: active bowel sounds Extremities: no edema Skin: clear Musculoskeletal: no pain - Labs Result Diagrams: 03/12/20 15:30 03/15/20 09:05 Troponin/CKMB Troponin I 0.065 ng/mL (< 0.028) H 03/12/20 10:01 - Telemetry Sinus rhythms and dysrhythmias: sinus rhythm - Assessment/Plan Assessment/Plan: 1. Worsening dilated CM 2. Ischemic CM 3. CAD 4. S/P PCI to LAD and RCAD with POOJA. 5. ESRD PLAN: - EF worse on stress test at 28%. - Will do LHC to reassess for ISR as she has had this before with bare metal stents. If ISR she will need CABG for revascularization. - We spoke about LHC, risks include but not limited to stroke, [place] , , bleeding and need for blood transfusion, limb loss, organ loss, she understands and verbalizes understanding of this and agrees to proceed. - Right groin access.
[2020-03-15] MEDS: traZODone HCl 50 MG TAB PO SCH (20:21)
[2020-03-16] MEDS: Levothyroxine Sodium 50 MCG TAB PO SCH (05:09)
[2020-03-16] MEDS: Carvedilol 6.25 MG TAB PO SCH ×2 (09:11→21:41)
[2020-03-16] MEDS: glipiZIDE 10 MG TAB PO SCH ×2 (09:11→21:40)
[2020-03-16] MEDS: Silver Sulfadiazine 50 GM TUBE TOP SCH (09:11)
[2020-03-16] MEDS: Atorvastatin Calcium 40 MG TAB PO SCH (09:12)
[2020-03-16] MEDS: Lisinopril 10 MG TAB PO SCH (09:12)
[2020-03-16] MEDS: Pregabalin 75 MG CAP PO SCH ×2 (09:12→21:39)
[2020-03-16] MEDS: Torsemide 20 MG TAB PO SCH (09:13)
[2020-03-16] MEDS: ALPRAZolam 1 MG TAB PO PRN ×2 (09:19→21:59)
[2020-03-16] MEDS ORDERED: Ketorolac Tromethamine 30 MG/ML VIAL IVP SCH (10:45)
--- NOTE | 2020-03-16 10:45 | PDOC.HOSPP ---
- Subjective Encounter Date: 03/16/20 Encounter Time: 07:30 Subjective: Patient seen for follow-up regarding chest pain. She denies having chest pain at this time. She denies any cough, fevers or chills. She denies any nausea or vomiting. She denies any abdominal pain. She reports chronic back pain. - Objective Vital Signs & Weight: Vital Signs (12 hours) Temp Pulse Resp BP Pulse Ox 03/16/20 08:56 98 03/16/20 08:00 96.7 F L 76 16 117/61 98 03/16/20 05:23 97.8 F 87 14 133/72 98 Weight Admit Weight 217 lb 8 oz Weight 216 lb 5.116 oz I&O: 03/15/20 03/16/20 03/17/20 06:59 06:59 06:59 Intake Total 980 840 Output Total 1000 Balance 980 -160 Result Diagrams: 03/12/20 15:30 03/15/20 09:05 Additional Labs: Accuchecks 03/16/20 03/15/20 03/15/20 05:57 20:50 16:51 POC Glucose 123 H 152 H 166 H I reviewed patient's labs and MAR EKG Reviewed by me: Yes (Telemetry: NSR) Hospitalist ROS - Review of Systems Cardiovascular: denies: chest pain, palpitations, orthopnea, paroxysmal noc. dyspnea, edema, light headedness Gastrointestinal: denies: nausea, vomiting, abdominal pain, diarrhea, constipation, melena, hematochezia Musculoskeletal: reports: back pain - Medication Medications: Active Medications Generic Name Dose Route Start Last Admin Trade Name Freq PRN Reason Stop Dose Admin Alprazolam 1 mg 03/12/20 10:04 03/16/20 09:19 Xanax PO 1 mg TIDPRN PRN Administration Anxiety Atorvastatin Calcium 40 mg 03/13/20 09:00 03/16/20 09:12 Lipitor PO 40 mg DAILY CECILIA Administration Carvedilol 12.5 mg 03/12/20 21:00 03/16/20 09:11 Coreg PO 12.5 mg BID CECILIA Administration Clopidogrel Bisulfate 75 mg 03/13/20 09:00 03/15/20 08:39 Plavix PO 75 mg DAILY CECILIA Administration Epoetin Solis-epbx 10,000 unit 03/12/20 16:00 03/12/20 18:46 Retacrit SC 10,000 unit Q7D CECILIA Administration Glipizide 20 mg 03/12/20 21:00 03/16/20 09:11 Glucotrol PO 20 mg BID CECILIA Administration Insulin Human Lispro 0 units 03/13/20 11:53 03/13/20 12:09 Humalog SC 3 unit .MILD SLIDING SCALE PRN Administration Mild Correctional Scale Levothyroxine Sodium 50 mcg 03/13/20 06:00 03/16/20 05:09 Synthroid PO 50 mcg 0600 CECILIA Administration Lisinopril 10 mg 03/13/20 09:00 03/16/20 09:12 Zestril PO 10 mg DAILY CECILIA Administration Pregabalin 100 mg 03/12/20 21:00 03/16/20 09:12 Lyrica PO 100 mg BID CECILIA Administration Ranolazine 500 mg 03/12/20 21:00 03/16/20 09:11 Ranexa PO 500 mg BID CECILIA Administration Silver Sulfadiazine 1 gm 03/13/20 09:00 03/16/20 09:11 Silver Sulfadiazine TOP 1 applic DAILY CECILIA Administration Sodium Chloride 10 ml 03/12/20 09:00 03/16/20 09:13 Flush - Normal Saline IVF 10 ml Q12HR CECILIA Administration Torsemide 40 mg 03/14/20 09:00 03/16/20 09:13 Demadex PO 40 mg DAILY CECILIA Administration Tramadol HCl 50 mg 03/12/20 10:04 03/15/20 20:22 Ultram PO 50 mg Q6H PRN Administration Mild-Moderate Pain (1-5) Trazodone HCl 50 mg 03/12/20 21:00 03/15/20 20:21 Desyrel PO 50 mg HS CECILIA Administration - Exam General - other findings: Obese Eye: anicteric sclera ENT: moist mucosa Neck: supple Heart: RRR Respiratory: CTAB Gastrointestinal: soft, non-tender Musculoskeletal: no muscle wasting Psychiatric: normal affect, normal behavior Hosp A/P - Plan (1) Chest pain Code(s): R07.9 - CHEST PAIN, UNSPECIFIED Status: Acute Qualifiers: Ischemic chest pain type: unspecified angina pectoris type (2) DM type 2 (diabetes mellitus, type 2) Status: Chronic Qualifiers: Diabetes mellitus nursing home insulin use: with nursing home use Diabetes mellitus complication status: with kidney complications Diabetes mellitus complication detail: with chronic kidney disease Chronic kidney disease stage : stage 3 (moderate) Qualified Code(s): E11.22 - Type 2 diabetes mellitus with diabetic chronic kidney disease; N18.3 - Chronic kidney disease, stage 3 ( moderate); 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 Therefore, the cath has been postponed to tomorrow. Patient to have dialysis following cath tomorrow. One-time dose of Toradol for back pain, patient reports that it worked well in the past. Hypertension controlled Continue Accu-Cheks and insulin sliding scale.
--- NOTE | 2020-03-16 11:09 | PRG ---
DATE OF SERVICE: 03/16/2020 SUBJECTIVE: This is a 64-year-old female, being seen for end-stage renal disease. The patient denies any nausea, vomiting, or chest pain. OBJECTIVE: General: The patient is awake and alert. Vital Signs: Afebrile, pulse 75, breathing at 16, blood pressure 130/61. HEENT: Head normocephalic and atraumatic. Eyes intact, no ulcers. Nose intact, no ulcers. Ears intact, no ulcers. Neck: Supple. No JVD. Chest: Symmetrical and clear. Cardiovascular: Shows S1 and S2, no rub, no murmur. Gastrointestinal: Abdomen is soft, bowel sounds positive. Extremities: Show no edema or ulcers. Skin: Shows no rash or petechiae. Musculoskeletal: Shows no joint swelling or stiffness. Genitourinary: Shows no Howard or CVA tenderness. Neurologic: Motor intact. Cranial nerves intact. LABORATORY DATA: Reviewed. ASSESSMENT AND PLAN: 1. Stage 6 chronic kidney disease, plan dialysis. 2. Hypertension, stable. 3. Anemia, stable. 4. Medication based on GFR appropriate. Job ID: [id number]
[2020-03-16] MEDS: Clopidogrel Bisulfate 75 MG TAB PO SCH (11:18)
--- NOTE | 2020-03-16 16:51 | PDOC.CPN ---
- Subjective Date: 03/16/20 Time: 16:50 Interval history: She denies angina, no SOB. - Review of Systems General: denies: fever/chills, weight/appetite/sleep changes, night sweats, fatigue Respiratory: denies: cough, congestion, shortness of breath, exercise intolerance Cardiovascular: denies: chest pain, palpitation, edema, paroxysmal nocturnal dyspnea, orthopnea Gastrointestinal: denies: nausea, vomiting, diarrhea, constipation, abd pain, GI bleeding Musculoskeletal: denies: pain, tenderness, stiffness, swelling, arthritis/ arthralgias Neurological: denies: numbness, syncope, seizure, weakness - Objective Allergies/Adverse Reactions: Allergies Allergy/AdvReac Type Severity Reaction Status Date / Time adhesive tape Allergy Verified 02/27/20 11:07 aspirin Allergy Verified 02/27/20 11:07 latex Allergy Verified 02/27/20 11:07 meperidine [From Demerol] Allergy Verified 02/27/20 11:07 morphine Allergy Verified 02/27/20 11:07 lace Allergy Uncoded 02/27/20 11:07 Visit Medications: Current Medications Alprazolam (Xanax) 1 mg PO TIDPRN PRN PRN Reason: Anxiety Last Admin: 03/16/20 09:19 Dose: 1 mg Atorvastatin Calcium (Lipitor) 40 mg PO DAILY [facility] Last Admin: 03/16/20 09:12 Dose: 40 mg Carvedilol (Coreg) 12.5 mg PO BID [facility] Last Admin: 03/16/20 09:11 Dose: 12.5 mg Clopidogrel Bisulfate (Plavix) 75 mg PO DAILY [facility] Last Admin: 03/16/20 11:18 Dose: 75 mg Dextrose/Water (Dextrose 50%) 25 gm SLOW IVP PRN PRN PRN Reason: Hypoglycemia Epoetin Solis-epbx (Retacrit) 10,000 unit SC Q7D [facility] Last Admin: 03/12/20 18:46 Dose: 10,000 unit Glipizide (Glucotrol) 20 mg PO BID [facility] Last Admin: 03/16/20 09:11 Dose: 20 mg Glucagon (Glucagon) 1 mg IM PRN PRN PRN Reason: Hypoglycemia Dextrose/Water (D5w) 1,000 mls @ 0 mls/hr IV .Q0M PRN PRN Reason: Hypoglycemia Insulin Human Lispro (Humalog) 0 units SC .MILD SLIDING SCALE PRN PRN Reason: Mild Correctional Scale Last Admin: 03/13/20 12:09 Dose: 3 unit Ketorolac Tromethamine (Toradol) 15 mg IVP NOW [facility] Stop: 03/21/20 11:45 Last Admin: 03/16/20 11:17 Dose: 15 mg Levothyroxine Sodium (Synthroid) 50 mcg PO 0600 [facility] Last Admin: 03/16/20 05:09 Dose: 50 mcg Lisinopril (Zestril) 10 mg PO DAILY [facility] Last Admin: 03/16/20 09:12 Dose: 10 mg Pregabalin (Lyrica) 100 mg PO BID [facility] Last Admin: 03/16/20 09:12 Dose: 100 mg Ranolazine (Ranexa) 500 mg PO BID [facility] Last Admin: 03/16/20 09:11 Dose: 500 mg Silver Sulfadiazine (Silver Sulfadiazine) 1 gm TOP DAILY [facility] Last Admin: 03/16/20 09:11 Dose: 1 applic Sodium Chloride (Flush - Normal Saline) 10 ml IVF Q12HR [facility] Last Admin: 03/16/20 09:13 Dose: 10 ml Sodium Chloride (Flush - Normal Saline) 10 ml IVF PRN PRN PRN Reason: Saline Flush Torsemide (Demadex) 40 mg PO DAILY [facility] Last Admin: 03/16/20 09:13 Dose: 40 mg Tramadol HCl (Ultram) 50 mg PO Q6H PRN PRN Reason: Mild-Moderate Pain (1-5) Last Admin: 03/15/20 20:22 Dose: 50 mg Trazodone HCl (Desyrel) [address] [facility] Last Admin: 03/15/20 20:21 Dose: 50 mg Vital Signs & Weight: Vital Signs Temp Pulse Resp BP Pulse Ox 03/16/20 15:30 96.7 F L 73 16 102/57 L 99 03/16/20 11:14 98.0 F 68 16 110/55 L 96 03/16/20 08:56 98 03/16/20 08:00 96.7 F L 76 16 117/61 98 03/16/20 05:23 97.8 F 87 14 133/72 98 Admit Weight 217 lb 8 oz Weight 216 lb 5.116 oz - Physical Exam General: alert & oriented x3 HEENT: mucus membranes moist Neck: supple neck Cardiac: no murmur Lungs: clear to auscultation Neuro: grossly intact Abdomen: active bowel sounds Extremities: no edema Skin: rash Musculoskeletal: no pain - Labs Result Diagrams: 03/12/20 15:30 03/15/20 09:05 Troponin/CKMB Troponin I 0.065 ng/mL (< 0.028) H 03/12/20 10:01 - Telemetry Sinus rhythms and dysrhythmias: sinus rhythm - Assessment/Plan Assessment/Plan: 1. Worsening dilated CM 2. Ischemic CM EF at 28% 3. CAD 4. S/P PCI to LAD and RCAD with POOJA. 5. ESRD 6. Bed bugs 2 months ago, treated at home per her report. PLAN: - Will do [facility] tomorrow AM. - Right groin access. - CABG if ISR.
[2020-03-16] MEDS ORDERED: Communication Order-Pharmacy FS SCH (17:00)
[2020-03-16] MEDS: traMADol HCl 50 MG TAB PO PRN (18:28)
[2020-03-16] MEDS: traZODone HCl 50 MG TAB PO SCH (21:40)
[2020-03-17 04:51] LABS: Anion Gap 16 mmol/L (10-20); BUN (Urea Nitrogen) 59 mg/dL (9.8-20.1); Calc. Creatinine Clearance 27 mL/min (70-130); Calcium 8.6 mg/dL (7.8-10.44); Carbon Dioxide 25 mmol/L (23-31); Chloride 91 mmol/L (98-107); Estimated GFR-MDRD 14; Glucose 107 mg/dL (80-115); Potassium 5.6 mmol/L (3.5-5.1); Sodium 126 mmol/L (136-145)
[2020-03-17] MEDS: Atorvastatin Calcium 40 MG TAB PO SCH (07:01)
[2020-03-17] MEDS: Carvedilol 6.25 MG TAB PO SCH ×2 (07:01→21:33)
[2020-03-17] MEDS: glipiZIDE 10 MG TAB PO SCH ×2 (07:02→21:33)
[2020-03-17] MEDS: Lisinopril 10 MG TAB PO SCH (07:02)
[2020-03-17] MEDS: Pregabalin 75 MG CAP PO SCH ×2 (07:02→21:48)
[2020-03-17] MEDS: Levothyroxine Sodium 50 MCG TAB PO SCH (07:03)
[2020-03-17] MEDS: Torsemide 20 MG TAB PO SCH (07:04)
[2020-03-17] MEDS: Clopidogrel Bisulfate 75 MG TAB PO SCH (07:04)
--- NOTE | 2020-03-17 09:45 | PRG ---
DATE OF SERVICE: 03/17/2020 SUBJECTIVE: A 64-year-old female, being seen for end-stage renal disease. The patient denies any nausea, vomiting, or chest pain. OBJECTIVE: GENERAL: The patient is awake and alert. VITAL SIGNS: Afebrile, pulse 69, breathing at 16, and blood pressure 102/55. HEENT: Head normocephalic and atraumatic. Eyes intact, no ulcers. Nose intact, no ulcers. Ears intact, no ulcers. Neck: Supple. No JVD. Chest: Symmetrical and clear. Cardiovascular: Shows S1 and S2, no rub, no murmur. Gastrointestinal: Abdomen is soft, bowel sounds positive. Extremities: Show no edema or ulcers. Skin: Shows no rash or petechiae. Musculoskeletal: Shows no joint swelling or stiffness. Genitourinary: Shows no Howard or CVA tenderness. Neurologic: Motor intact. Cranial nerves intact. ASSESSMENT AND PLAN: 1. Chronic kidney disease, stage 6. Plan dialysis. 2. Hyperkalemia, plan dialysis. 3. Anemia, stable. 4. Medication based on GFR appropriate. Job ID: [id number]
[2020-03-17] MEDS: Silver Sulfadiazine 50 GM TUBE TOP SCH (10:00)
[2020-03-17] MEDS ORDERED: traMADol HCl 50 MG TAB PO PRN (10:32)
[2020-03-17] MEDS ORDERED: Heparin 10,000 UNITS/ 10 ML VIAL ONE (11:04)
[2020-03-17] MEDS ORDERED: Iopamidol 370 76% 100 ML VIAL ONE (11:09)
[2020-03-17] MEDS: ALPRAZolam 1 MG TAB PO PRN ×2 (11:23→21:52)
[2020-03-17] MEDS ORDERED: Midazolam HCl 2 mg/2 ml Vial ONE (12:28)
[2020-03-17] MEDS ORDERED: Fentanyl 100 MCG/2 ML VIAL ONE (12:28)
[2020-03-17] MEDS ORDERED: Nitroglycerin 0.4 MG TAB (25 Tab Bottle) SL PRN (12:51)
[2020-03-17] MEDS ORDERED: Sodium Chloride 0.9% 200 ML IV PRN (12:51)
--- NOTE | 2020-03-17 16:53 | PDOC.HOSPP ---
- Subjective Encounter Date: 03/17/20 Encounter Time: 16:00 Subjective: Pt seen for followup re: chest pain. Feels better, no complaints today. - Objective Vital Signs & Weight: Vital Signs (12 hours) Temp Pulse Resp BP BP Pulse Ox 03/17/20 11:21 97.6 F 66 16 105/57 L 99 03/17/20 08:35 97.5 F L 67 17 96/55 L 97 03/17/20 07:01 108/59 L 03/17/20 05:00 97.5 F L 69 20 102/55 L 98 Weight Admit Weight 217 lb 8 oz Weight 222 lb I&O: 03/16/20 03/17/20 03/18/20 06:59 06:59 06:59 Intake Total 840 1200 Output Total 1000 200 Balance -160 1000 Result Diagrams: 03/12/20 15:30 03/17/20 03:59 Additional Labs: Accuchecks 03/17/20 03/17/20 03/17/20 16:25 11:24 06:22 POC Glucose 96 142 H 115 H 03/16/20 03/16/20 20:31 18:29 POC Glucose 108 83 I reviewed labs and MAR EKG Reviewed by me: Yes (Tele: NSR) Hospitalist ROS - Review of Systems Cardiovascular: denies: chest pain, palpitations, orthopnea, paroxysmal noc. dyspnea, edema, light headedness Gastrointestinal: denies: nausea, vomiting, abdominal pain, diarrhea, constipation, melena, hematochezia - Medication Medications: Active Medications Generic Name Dose Route Start Last Admin Trade Name Freq PRN Reason Stop Dose Admin Alprazolam 1 mg 03/12/20 10:04 03/17/20 11:23 Xanax PO 1 mg TIDPRN PRN Administration Anxiety Atorvastatin Calcium 40 mg 03/13/20 09:00 03/17/20 07:01 Lipitor PO 40 mg DAILY CECILIA Administration Carvedilol 12.5 mg 03/12/20 21:00 03/17/20 07:01 Coreg PO 12.5 mg BID CECILIA Administration Clopidogrel Bisulfate 75 mg 03/13/20 09:00 03/17/20 07:04 Plavix PO 75 mg DAILY CECILIA Administration Epoetin Solis-epbx 10,000 unit 03/12/20 16:00 03/12/20 18:46 Retacrit SC 10,000 unit Q7D CECILIA Administration Glipizide 20 mg 03/12/20 21:00 03/17/20 07:02 Glucotrol PO 20 mg BID CECILIA Administration Levothyroxine Sodium 50 mcg 03/13/20 06:00 03/17/20 07:03 Synthroid PO 50 mcg 0600 CECILIA Administration Lisinopril 10 mg 03/13/20 09:00 03/17/20 07:02 Zestril PO 10 mg DAILY CECILIA Administration Pregabalin 100 mg 03/12/20 21:00 03/17/20 07:02 Lyrica PO 100 mg BID CECILIA Administration Ranolazine 500 mg 03/12/20 21:00 03/17/20 07:04 Ranexa PO 500 mg BID CECILIA Administration Silver Sulfadiazine 1 gm 03/13/20 09:00 03/17/20 10:00 Silver Sulfadiazine TOP 1 applic DAILY CECILIA Administration Sodium Chloride 10 ml 03/12/20 09:00 03/17/20 07:04 Flush - Normal Saline IVF 10 ml Q12HR CECILIA Administration Torsemide 40 mg 03/14/20 09:00 03/17/20 07:04 Demadex PO 40 mg DAILY CECILIA Administration Trazodone HCl 50 mg 03/12/20 21:00 03/16/20 21:40 Desyrel PO 50 mg HS CECILIA Administration - Exam General Appearance: awake alert Eye: PERRL ENT: normocephalic atraumatic Neck: no thyromegaly Heart: RRR Respiratory: CTAB Gastrointestinal: non-tender, non-distended Skin: normal turgor Musculoskeletal: no muscle wasting Psychiatric: normal affect, normal behavior Hosp A/P - Plan (1) Chest pain Code(s): R07.9 - CHEST PAIN, UNSPECIFIED Status: Acute Qualifiers: Ischemic chest pain type: unspecified angina pectoris type (2) DM type 2 (diabetes mellitus, type 2) Status: Chronic Qualifiers: 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 Diabetes mellitus complication status: with kidney complications Diabetes mellitus complication detail: with chronic kidney disease Chronic kidney disease stage : stage 3 (moderate) Qualified Code(s): E11.22 - Type 2 diabetes mellitus with diabetic chronic kidney disease; N18.3 - Chronic kidney disease, stage 3 ( moderate); Z79.4 - FDC (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 of insulin (3) ESRD (end stage renal disease) on dialysis Code(s): N18.6 - END STAGE RENAL DISEASE; Z99.2 - DEPENDENCE ON RENAL DIALYSIS Status: Chronic (4) HTN (hypertension) Code(s): I10 - ESSENTIAL (PRIMARY) HYPERTENSION Status: Chronic Qualifiers: Hypertension type: essential hypertension Qualified Code(s): I10 - Essential (primary) hypertension - Plan Pt had cath todaygery consulted. Dialysis per nephrology service. Hypertension controlled Blood sugars controlled.
--- NOTE | 2020-03-17 20:32 | CON ---
DATE OF CONSULTATION: 03/17/2020 HISTORY OF PRESENT ILLNESS: Ms. Mendez is a 64-year-old woman with end-stage renal disease on hemodialysis, who has a coronary history. She has had stents placed in her right coronary and LAD in the past. She has had in-stent restenoses of bare-metal stents and had a drug-eluting stent placed in the LAD. She re-presented with chest pain and heaviness. She has also had shortness of breath. She underwent cardiac catheterization today showing restenoses of the LAD stent. LAD is bypassable. She also has significant disease distal to the stent in the right coronary artery at a bifurcation. These arteries were small and maybe by bypassable. She has had a recent dialysis fistula placed in her right arm. She has a tunneled dialysis catheter on her right chest. Currently, she is resting comfortably without chest pain or shortness of breath. During our discussion, it became evident that she has a difficult time processing information and being able to coherently express herself. This leads me to worry that her understanding of her coronary situation is not very good and I have asked her to bring her in tomorrow, so we can have a discussion with him and hopefully, he will be able to consent for her for surgery if that is what they decide to do. PAST MEDICAL HISTORY: 1. Coronary artery disease, status post myocardial infarction with subsequent coronary stenting. 2. COPD. 3. Hypertension. 4. Diabetes mellitus. 5. Chronic atrial fibrillation. 6. Hypothyroidism. 7. End-stage renal disease, on hemodialysis. PAST SURGICAL HISTORY: 1. Hysterectomy. 2. Right HemoSplit catheter. 3. Right arm fistula. 4. Hysterectomy. PSYCHIATRIC HISTORY: Anxiety and depression. SOCIAL HISTORY: She does not use tobacco. She used to smoke marijuana. ALLERGIES: ASPIRIN, DEMEROL, LATEX, AND MORPHINE. REVIEW OF SYSTEMS: Not performed due to the patient's perceived mental capacity. PHYSICAL EXAMINATION: GENERAL: This is a morbidly obese woman, resting comfortably on the telemetry unit. VITAL SIGNS: Her temperature is 97.6, pulse is 66 and regular, and blood pressure is 105/57. Height is 5 feet and 8 inches, weight is 232 pounds, and BSA is 2.2. HEENT: Sclerae are nonicteric. Pupils are equal and round bilaterally. NECK: Supple. She has no carotid bruit. CHEST: Clear bilaterally. She has HemoSplit catheter passing through her right midclavicular line chest wall. CARDIAC: Heart rhythm is regular. ABDOMEN: Soft and nontender. EXTREMITIES: There is no edema. She has palpable pedal pulses bilaterally. She has a recent fistula in her right arm, which is closed with clips. LABORATORY DATA: Of note, her hemoglobin is 10.4, platelet count is 233,000. Creatinine is 3.37, potassium is 5.6. ASSESSMENT AND PLAN: This is a pleasant, although simple 64-year-old woman with in-stent restenoses of left anterior descending and stent and distal right coronary artery stenosis. I will discuss risk profiling with her tomorrow. We will try to help her make some informed decisions on the direction that her care should proceed. Job ID: [id number]
[2020-03-17] MEDS: traZODone HCl 50 MG TAB PO SCH (21:36)
[2020-03-17] MEDS ORDERED: Pregabalin 50 MG CAP PO SCH (22:00)
--- NOTE | 2020-03-17 22:39 | EKG ---
Test Reason : C/O CHEST PAIN Blood Pressure : / mmHG Vent. Rate : 091 BPM Atrial Rate : 091 BPM P-R Int : 214 ms QRS Dur : 168 ms QT Int : 430 ms P-R-T Axes : 070 069 -17 degrees QTc Int : 528 ms Sinus rhythm with 1st degree A-V block with Fusion complexes Left bundle branch block Abnormal ECG When compared with ECG of 26-FEB-2020 13:42, Fusion complexes are now Present QRS axis Shifted left Inverted T waves have replaced nonspecific T wave abnormality in Inferior leads Confirmed by RADHA MULLINS, DR. Gomez ([id number]) on 03/17/2020 10:39:30 PM Referred By: DALILA Confirmed By:DR. Patricia GARCIA MD
[2020-03-18] MEDS: Levothyroxine Sodium 50 MCG TAB PO SCH (05:28)
[2020-03-18] MEDS: Torsemide 20 MG TAB PO SCH (08:08)
[2020-03-18] MEDS: Atorvastatin Calcium 40 MG TAB PO SCH (08:09)
[2020-03-18] MEDS: Pregabalin 50 MG CAP PO SCH ×2 (08:09→21:40)
[2020-03-18] MEDS: glipiZIDE 10 MG TAB PO SCH ×2 (08:09→21:40)
[2020-03-18] MEDS: Carvedilol 6.25 MG TAB PO SCH ×2 (08:09→21:38)
[2020-03-18] MEDS: Lisinopril 10 MG TAB PO SCH ×2 (08:09→08:45)
--- NOTE | 2020-03-18 08:19 | PDOC.CPN ---
- Subjective Date: 03/18/20 Time: 08:15 Interval history: No new issues. No chest pain. - Review of Systems General: denies: fever/chills, weight/appetite/sleep changes, night sweats, fatigue Respiratory: denies: cough, congestion, shortness of breath, exercise intolerance Cardiovascular: denies: chest pain, palpitation, edema, paroxysmal nocturnal dyspnea, orthopnea Gastrointestinal: denies: nausea, vomiting, diarrhea, constipation, abd pain, GI bleeding Musculoskeletal: denies: pain, tenderness, stiffness, swelling, arthritis/ arthralgias Neurological: denies: numbness, syncope, seizure, weakness - Objective Allergies/Adverse Reactions: Allergies Allergy/AdvReac Type Severity Reaction Status Date / Time adhesive tape Allergy Verified 02/27/20 11:07 aspirin Allergy Verified 02/27/20 11:07 latex Allergy Verified 02/27/20 11:07 meperidine [From Demerol] Allergy Verified 02/27/20 11:07 morphine Allergy Verified 02/27/20 11:07 lace Allergy Uncoded 02/27/20 11:07 Visit Medications: Current Medications Alprazolam (Xanax) 1 mg PO TIDPRN PRN PRN Reason: Anxiety Last Admin: 03/17/20 21:52 Dose: 1 mg Atorvastatin Calcium (Lipitor) 40 mg PO DAILY [facility] Last Admin: 03/18/20 08:09 Dose: 40 mg Carvedilol (Coreg) 12.5 mg PO BID [facility] Last Admin: 03/18/20 08:09 Dose: 12.5 mg Dextrose/Water (Dextrose 50%) 25 gm SLOW IVP PRN PRN PRN Reason: Hypoglycemia Epoetin Solis-epbx (Retacrit) 10,000 unit SC Q7D [facility] Last Admin: 03/12/20 18:46 Dose: 10,000 unit Glipizide (Glucotrol) 20 mg PO BID [facility] Last Admin: 03/18/20 08:09 Dose: 20 mg Glucagon (Glucagon) 1 mg IM PRN PRN PRN Reason: Hypoglycemia Dextrose/Water (D5w) 1,000 mls @ 0 mls/hr IV .Q0M PRN PRN Reason: Hypoglycemia Sodium Chloride (Normal Saline 0.9%) 200 mls @ 0 mls/hr IV PRN PRN PRN Reason: SBP < 90 Levothyroxine Sodium (Synthroid) 50 mcg PO 0600 [facility] Last Admin: 03/18/20 05:28 Dose: 50 mcg Lisinopril (Zestril) 10 mg PO DAILY [facility] Last Admin: 03/18/20 08:09 Dose: 10 mg Nitroglycerin (Nitrostat) 0.4 mg SL Q5MIN PRN PRN Reason: Chest Pain Pregabalin (Lyrica) 100 mg PO BID [facility] Last Admin: 03/18/20 08:09 Dose: 100 mg Ranolazine (Ranexa) 500 mg PO BID [facility] Last Admin: 03/18/20 08:09 Dose: 500 mg Silver Sulfadiazine (Silver Sulfadiazine) 1 gm TOP DAILY [facility] Last Admin: 03/17/20 10:00 Dose: 1 applic Sodium Chloride (Flush - Normal Saline) 10 ml IVF Q12HR [facility] Last Admin: 03/18/20 08:11 Dose: 10 ml Sodium Chloride (Flush - Normal Saline) 10 ml IVF PRN PRN PRN Reason: Saline Flush Torsemide (Demadex) 40 mg PO DAILY [facility] Last Admin: 03/18/20 08:08 Dose: 40 mg Tramadol HCl (Ultram) 50 mg PO Q12H PRN PRN Reason: Mild-Moderate Pain (1-5) Trazodone HCl (Desyrel) 50 mg PO HS [facility] Last Admin: 03/17/20 21:36 Dose: 50 mg Vital Signs & Weight: Vital Signs Temp Pulse Resp BP BP Pulse Ox 03/18/20 08:09 115/59 L 03/18/20 07:20 98 03/18/20 04:00 97.4 F L 77 11 L 101/51 L 98 03/17/20 21:33 115/59 L Admit Weight 217 lb 8 oz Weight 225 lb 3.2 oz - Physical Exam General: alert & oriented x3 HEENT: mucus membranes moist Neck: supple neck Cardiac: regular rate and rhythm Lungs: normal breath sounds Neuro: grossly intact Abdomen: active bowel sounds Extremities: 1+ LE edema Skin: clear Musculoskeletal: no pain - Labs Result Diagrams: 03/12/20 15:30 03/17/20 03:59 Troponin/CKMB Troponin I 0.065 ng/mL (< 0.028) H 03/12/20 10:01 - Telemetry Sinus rhythms and dysrhythmias: sinus rhythm - Assessment/Plan Assessment/Plan: 1. Worsening dilated CM 2. Ischemic CM EF at 28% 3. CAD 4. S/P PCI to LAD and RCA with POOJA. 5. ESRD 6. Bed bugs 2 months ago, treated at home per her report. 7. In stent re stenosis recurrent to LAD and severe RCA disease. PLAN: - Severe ISR to prox LAD and severe RCA disease. - CT surgery for CABG. - HD per nephrology.
[2020-03-18] MEDS: ALPRAZolam 1 MG TAB PO PRN ×2 (08:48→21:41)
[2020-03-18] MEDS: Silver Sulfadiazine 50 GM TUBE TOP SCH (08:49)
--- NOTE | 2020-03-18 09:17 | STRESS ---
Acquisition Time: 2020-03-14 15:03:54 Total Exercise Time: 00:01:00 Test Indications: CHEST PAIN Medications: Protocol: LEXISCAN Max HR: 086 BPM 54% of Pred: 158 BPM Max BP: 118/062 mmHG Max Work Load: 1.0 METS RESTING ECG: NORMAL SINUS RHYTHM AT 83 BPM W/ RIGH AXIS DEIVATION, FIRST DEGREE AV BLOCK, AND COMPLETE LBBB SYMPTOMS: NONE NORMAL BP RESPONSE ECTOPY: OCCASIONAL PVCS ECG STRESS: NO SIGNIFICANT CHANGES INTERPRETATION: INDETERMINATE ECG / AWAIT NUCLEAR IMAGES FOR DEFINITIVE DIAGNOSIS Confirmed by TITUS MO ([id number]) on 03/18/2020 9:17:08 AM Referred By: LOLITA MO Confirmed By:TITUS MO
[2020-03-18 10:45] LABS: Potassium 5.2 mmol/L (3.5-5.1)
[2020-03-18] MEDS ORDERED: Heparin 10,000 UNITS/ 10 ML VIAL ONE (14:04)
--- NOTE | 2020-03-18 14:10 | PRG ---
DATE OF SERVICE: 03/18/2020 SUBJECTIVE: A 64-year-old female being seen for end-stage renal disease. The patient denies any nausea, vomiting, or chest pain. OBJECTIVE: GENERAL: The patient is awake and alert. VITAL SIGNS: Afebrile, pulse 75, breathing at 16, blood pressure was 129/66. HEENT: Head normocephalic and atraumatic. Eyes intact, no ulcers. Nose intact, no ulcers. Ears intact, no ulcers. NECK: Supple. No JVD. CHEST: Symmetrical and clear. CARDIOVASCULAR: Shows S1 and S2, no rub, no murmur. GASTROINTESTINAL: Abdomen is soft, bowel sounds positive. EXTREMITIES: Show no edema or ulcers. SKIN: Shows no rash or petechiae. MUSCULOSKELETAL: Shows no joint swelling or stiffness. GENITOURINARY: Shows no Howard or CVA tenderness. NEUROLOGIC: Motor intact. Cranial nerves intact. LABORATORY DATA: Reviewed. ASSESSMENT AND PLAN: 1. Stage 6 chronic kidney disease. Plan dialysis. 2. Hypertension, stable. 3. Anemia, stable. 4. Medication based on GFR, appropriate. Job ID: [id number]
[2020-03-18] MEDS ORDERED: Communication Order-Pharmacy FS ONE (15:31)
--- NOTE | 2020-03-18 16:34 | PDOC.HOSPP ---
- Subjective Encounter Date: 03/18/20 Encounter Time: 10:00 Subjective: Pt seen for followup re: chest pain. Reports feeling fine. - Objective Vital Signs & Weight: Vital Signs (12 hours) Temp Pulse Resp BP BP Pulse Ox 03/18/20 12:22 97.2 F L 77 16 129/66 100 03/18/20 08:45 107/53 L 03/18/20 08:09 115/59 L 03/18/20 08:00 96.4 F L 76 16 107/53 L 100 03/18/20 07:20 98 Weight Admit Weight 217 lb 8 oz Weight 225 lb 3.2 oz I&O: 03/17/20 03/18/20 03/19/20 06:59 06:59 06:59 Intake Total 1200 360 Output Total 200 Balance 1000 360 Result Diagrams: 03/12/20 15:30 03/18/20 10:24 Additional Labs: Accuchecks 03/18/20 03/18/20 03/17/20 10:43 06:01 20:03 POC Glucose 208 H 134 H 157 H 03/17/20 16:25 POC Glucose 96 labs and MARs reviewed by me EKG Reviewed by me: Yes (Tele: NSR) Hospitalist ROS - Review of Systems Cardiovascular: denies: chest pain, palpitations, orthopnea, paroxysmal noc. dyspnea, edema, light headedness Skin: denies: rash, lesions, chiquis, bruising - Medication Medications: Active Medications Generic Name Dose Route Start Last Admin Trade Name Freq PRN Reason Stop Dose Admin Alprazolam 1 mg 03/12/20 10:04 03/18/20 08:48 Xanax PO 1 mg TIDPRN PRN Administration Anxiety Atorvastatin Calcium 40 mg 03/13/20 09:00 03/18/20 08:09 Lipitor PO 40 mg DAILY CECILIA Administration Carvedilol 12.5 mg 03/12/20 21:00 03/18/20 08:09 Coreg PO 12.5 mg BID CECILIA Administration Epoetin Solis-epbx 10,000 unit 03/12/20 16:00 03/12/20 18:46 Retacrit SC 10,000 unit Q7D CECILIA Administration Glipizide 20 mg 03/12/20 21:00 03/18/20 08:09 Glucotrol PO 20 mg BID CECILIA Administration Levothyroxine Sodium 50 mcg 03/13/20 06:00 03/18/20 05:28 Synthroid PO 50 mcg 0600 CECILIA Administration Lisinopril 10 mg 03/13/20 09:00 03/18/20 08:45 Zestril PO 10 mg DAILY CECILIA Administration Pregabalin 100 mg 03/18/20 09:00 03/18/20 08:09 Lyrica PO 100 mg BID CECILIA Administration Ranolazine 500 mg 03/12/20 21:00 03/18/20 08:09 Ranexa PO 500 mg BID CECILIA Administration Silver Sulfadiazine 1 gm 03/13/20 09:00 03/18/20 08:49 Silver Sulfadiazine TOP 1 applic DAILY CECILIA Administration Sodium Chloride 10 ml 03/12/20 09:00 03/18/20 08:11 Flush - Normal Saline IVF 10 ml Q12HR CECILIA Administration Torsemide 40 mg 03/14/20 09:00 03/18/20 08:08 Demadex PO 40 mg DAILY CECILIA Administration Trazodone HCl 50 mg 03/12/20 21:00 03/17/20 21:36 Desyrel PO 50 mg HS CECILIA Administration - Exam General - other findings: Obese Eye: anicteric sclera Neck: supple Heart: RRR Respiratory: CTAB Gastrointestinal: non-tender, normal bowel sounds Extremities: no cyanosis Skin: no rashes Musculoskeletal: no muscle wasting Psychiatric: normal affect Hosp A/P - Plan (1) Chest pain Code(s): R07.9 - CHEST PAIN, UNSPECIFIED Status: Acute Qualifiers: Ischemic chest pain type: unspecified angina pectoris type (2) DM type 2 (diabetes mellitus, type 2) Status: Chronic Qualifiers: Diabetes mellitus retirement insulin use: with exterminator helper termite use Diabetes mellitus complication status: with kidney complications Diabetes mellitus complication detail: with chronic kidney disease Chronic kidney disease stage : stage 3 (moderate) Qualified Code(s): E11.22 - Type 2 diabetes mellitus with diabetic chronic kidney disease; N18.3 - Chronic kidney disease, stage 3 ( moderate); Z79.4 - rn long term care (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 of insulin (3) ESRD (end stage renal disease) on dialysis Code(s): N18.6 - END STAGE RENAL DISEASE; Z99.2 - DEPENDENCE ON RENAL DIALYSIS Status: Chronic (4) HTN (hypertension) Code(s): I10 - ESSENTIAL (PRIMARY) HYPERTENSION Status: Chronic Qualifiers: Hypertension type: essential hypertension Qualified Code(s): I10 - Essential (primary) hypertension - Plan Plan if for CABG tomorrow, family meeting today evening. Nephrology following for maintainance hemodialysis. HTN controlled.
[2020-03-18] MEDS: traZODone HCl 50 MG TAB PO SCH (21:41)
[2020-03-19] MEDS: Carvedilol 6.25 MG TAB PO SCH (05:44)
[2020-03-19] MEDS: Lisinopril 10 MG TAB PO SCH (05:44)
[2020-03-19] MEDS: Levothyroxine Sodium 50 MCG TAB PO SCH (05:44)
[2020-03-19] MEDS ORDERED: Albumin 5% 0 ML ONE (07:08)
--- NOTE | 2020-03-19 07:14 | RAD ---
Chest one view HISTORY: Heart surgery. Preop. COMPARISON: 03/12/2020. FINDINGS: Cardiac silhouette is magnified and enlarged. Pulmonary vasculature is engorged but less th an on the prior study. Mediastinum is midline with aortic calcification and a large caliber right internal jugular central v enous catheter. No evidence of pneumothorax. IMPRESSION : Pulmonary vascular congestion less pronounced than on the 03/12/2020 study. Cardiomegaly and other findings are otherwise stable
--- NOTE | 2020-03-19 09:51 | PDOC.HOSPP ---
- Subjective Encounter Date: 03/19/20 Encounter Time: 07:30 Subjective: Patient seen for follow-up regarding chest pain. She denies current chest pain. - Objective Vital Signs & Weight: Vital Signs (12 hours) Temp Pulse Resp BP BP Pulse Ox 03/19/20 08:14 98.0 F 76 16 155/86 H 97 03/19/20 07:43 98 03/19/20 05:44 125/63 03/19/20 03:53 97.7 F 68 18 113/58 L Weight Admit Weight 217 lb 8 oz Weight 224 lb 6.889 oz I&O: 03/18/20 03/19/20 03/20/20 06:59 06:59 06:59 Intake Total 360 730 Output Total 1200 Balance 360 -470 Result Diagrams: 03/12/20 15:30 03/18/20 10:24 Additional Labs: Accuchecks 03/19/20 03/18/20 03/18/20 05:47 20:38 10:43 POC Glucose 93 184 H 208 H I reviewed patient's labs and MAR EKG Reviewed by me: Yes (Telemetry: Atrial fibrillation) Hospitalist ROS - Review of Systems Constitutional: denies: fever, chills, sweats, weakness Cardiovascular: denies: chest pain, palpitations, orthopnea, paroxysmal noc. dyspnea, edema, light headedness - Medication Medications: Active Medications Generic Name Dose Route Start Last Admin Trade Name Freq PRN Reason Stop Dose Admin Carvedilol 12.5 mg 03/12/20 21:00 03/19/20 05:44 Coreg PO 12.5 mg BID CECILIA Administration Lisinopril 10 mg 03/13/20 09:00 03/19/20 05:44 Zestril PO 10 mg DAILY CECILIA Administration - Exam General - other findings: Obesity Eye: anicteric sclera ENT: no oropharyngeal lesions Neck: supple Heart: irregular Respiratory: CTAB Gastrointestinal: soft, non-tender Extremities: no cyanosis Skin: no rashes Psychiatric: normal affect, normal behavior Hosp A/P - Plan (1) Chest pain Code(s): R07.9 - CHEST PAIN, UNSPECIFIED Status: Acute Qualifiers: Ischemic chest pain type: unspecified angina pectoris type (2) DM type 2 (diabetes mellitus, type 2) Status: Chronic Qualifiers: Diabetes mellitus detention insulin use: with detention use Diabetes mellitus complication status: with kidney complications Diabetes mellitus complication detail: with chronic kidney disease Chronic kidney disease stage : stage 3 (moderate) Qualified Code(s): E11.22 - Type 2 diabetes mellitus with diabetic chronic kidney disease; N18.3 - Chronic kidney disease, stage 3 ( moderate); Z79.4 - long-term (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 of insulin (3) ESRD (end stage renal disease) on dialysis Code(s): N18.6 - END STAGE RENAL DISEASE; Z99.2 - DEPENDENCE ON RENAL DIALYSIS Status: Chronic (4) HTN (hypertension) Code(s): I10 - ESSENTIAL (PRIMARY) HYPERTENSION Status: Chronic Qualifiers: Hypertension type: essential hypertension Qualified Code(s): I10 - Essential (primary) hypertension - Plan Patient had LAD stent restenosis on coronary angiography. She is scheduled to undergo coronary artery bypass graft later today. Nephrology service is following for maintenance hemodialysis. Reasonable control of blood sugars.
[2020-03-19] MEDS ORDERED: Vancomycin 1.5 GRAM/300 ML BAG ONE (09:59)
[2020-03-19] MEDS ORDERED: Heparin 10,000 UNITS/1 ML VIAL 30,000 UNITS in Sodium Chloride 0.9% 1,000 ML FS SCH (10:15)
[2020-03-19] MEDS ORDERED: EPINEPHrine 1 MG/ML AMP ONE (10:32)
[2020-03-19] MEDS ORDERED: Dexamethasone 4 mg/ml Vial ONE (10:32)
[2020-03-19] MEDS ORDERED: Bupivacaine PF 0.5% 30 ML VIAL ONE (10:32)
[2020-03-19] MEDS ORDERED: Vecuronium 10 MG VIAL ONE ×3 (10:44→11:35)
[2020-03-19] MEDS ORDERED: Midazolam HCl 2 mg/2 ml Vial ONE (10:44)
[2020-03-19] MEDS ORDERED: Ketamine 50 MG/ML (10ML VIAL) ONE (10:44)
[2020-03-19] MEDS ORDERED: Nitroglycerin 50 MG/250 ML BOT 250 ML ONE (10:45)
[2020-03-19] MEDS ORDERED: Norepinephrine 4 MG/4 ML VIAL ONE (10:45)
[2020-03-19] MEDS ORDERED: Succinylcholine Chloride 20 MG/ML 10 ml SYRINGE FS ONE (11:35)
[2020-03-19] MEDS ORDERED: Protamine Sulfate 250 MG/25 ML VIAL ONE (11:35)
[2020-03-19] MEDS ORDERED: Cardioplegic Soln 1,000 ML BAG ONE (11:35)
[2020-03-19] MEDS ORDERED: Papaverine 60 MG/2 ML VIAL ONE (11:35)
[2020-03-19] MEDS ORDERED: Rocuronium Bromide 10 MG/ML (10ML VIAL) ONE (11:35)
[2020-03-19] MEDS ORDERED: Thrombin 5000 UNITS/5 ML VIAL ONE (11:35)
[2020-03-19] MEDS ORDERED: Sodium Bicarb 50 MEQ/50 ML Abboject 8.4% SYRINGE ONE (11:35)
[2020-03-19] MEDS ORDERED: Heparin 30,000 units/30 ml VIAL ONE (11:35)
[2020-03-19] MEDS ORDERED: Magnesium Sulfate 1 GM/2 ML VIAL ONE (11:35)
[2020-03-19] MEDS ORDERED: Heparin 5,000 UNITS/ML VIAL ONE (11:35)
[2020-03-19] MEDS ORDERED: Lidocaine 2% PF 5 ML VIAL ONE (11:35)
[2020-03-19] MEDS ORDERED: Lidocaine 1% PF 5 ML VIAL ONE (11:35)
[2020-03-19] MEDS ORDERED: Aminocaproic Acid 5 GM/20 ML VIAL ONE (11:35)
[2020-03-19] MEDS ORDERED: Calcium Chloride 1 GM/10 ML Abboject SYRINGE ONE (11:35)
[2020-03-19] MEDS ORDERED: Potassium Chloride 60 MEQ/30 ML VIAL ONE (11:35)
--- NOTE | 2020-03-19 11:59 | PRG ---
DATE OF SERVICE: 03/19/2020 SUBJECTIVE: A 64-year-old female being seen for end-stage renal disease. The patient denied any nausea, vomiting, or chest pain. OBJECTIVE: GENERAL: The patient is awake and alert. VITAL SIGNS: Afebrile, pulse 75, breathing at 16, blood pressure 155/86. HEENT: Head normocephalic and atraumatic. Eyes intact, no ulcers. Nose intact, no ulcers. Ears intact, no ulcers. NECK: Supple. No JVD. CHEST: Symmetrical and clear. CARDIOVASCULAR: Shows S1 and S2, no rub, no murmur. GASTROINTESTINAL: Abdomen is soft, bowel sounds positive. EXTREMITIES: Show no edema or ulcers. SKIN: Shows no rash or petechiae. MUSCULOSKELETAL: Shows no joint swelling or stiffness. GENITOURINARY: Shows no Howard or CVA tenderness. NEUROLOGIC: Motor intact. Cranial nerves intact. LABORATORY DATA: Reviewed. ASSESSMENT AND PLAN: 1. Stage 6 chronic kidney disease. Plan dialysis per schedule. 2. Hypertension, stable. 3. Anemia, stable. 4. Medication based on GFR, appropriate. We will order labs for tomorrow morning. Job ID: [id number]
[2020-03-19] MEDS ORDERED: CEFAZOLIN 2 GM in Premix Bag 1 BAG IVPB SCH (12:00)
[2020-03-19] MEDS ORDERED: CEFAZOLIN 1 GM VIAL SLOW IVP SCH (12:00)
[2020-03-19] MEDS ORDERED: ceFAZolin 1 GM/D5W 1 GM in Premix Bag 1 BAG IVPB SCH (12:00)
[2020-03-19] MEDS ORDERED: Vancomycin 1.5 GM in Premix Bag 1 BAG IVPB SCH (12:00)
[2020-03-19] MEDS ORDERED: Insulin Regular 300 UNITS/3 ML VIAL ONE (13:00)
--- NOTE | 2020-03-19 13:27 | PDOC.CPN ---
- Subjective Date: 03/19/20 Time: 08:00 Interval history: No new issues. - Review of Systems General: denies: fever/chills, weight/appetite/sleep changes, night sweats, fatigue Respiratory: denies: cough, congestion, shortness of breath, exercise intolerance Cardiovascular: denies: chest pain, palpitation, edema, paroxysmal nocturnal dyspnea, orthopnea Gastrointestinal: denies: nausea, vomiting, diarrhea, constipation, abd pain, GI bleeding Musculoskeletal: denies: pain, tenderness, stiffness, swelling, arthritis/ arthralgias Neurological: denies: numbness, syncope, seizure, weakness - Objective Allergies/Adverse Reactions: Allergies Allergy/AdvReac Type Severity Reaction Status Date / Time adhesive tape Allergy Verified 02/27/20 11:07 aspirin Allergy Verified 02/27/20 11:07 latex Allergy Verified 02/27/20 11:07 meperidine [From Demerol] Allergy Verified 02/27/20 11:07 morphine Allergy Verified 02/27/20 11:07 lace Allergy Uncoded 02/27/20 11:07 Visit Medications: Current Medications Carvedilol (Coreg) 12.5 mg PO BID [facility] Last Admin: 03/19/20 05:44 Dose: 12.5 mg Sodium Chloride (Normal Saline 0.9%) 200 mls @ 0 mls/hr IV PRN PRN PRN Reason: SBP < 90 Vancomycin HCl 1.5 gm/ Device 300 mls @ 200 mls/hr IVPB ONCALL-OR CECILIA Stop: 03/19/20 18:00 Cefazolin Sodium/Dextrose 2 gm (/ Device) 50 mls @ 100 mls/hr IVPB 0400,1200, 2000 [facility] Lisinopril (Zestril) 10 mg PO DAILY [facility] Last Admin: 03/19/20 05:44 Dose: 10 mg Vital Signs & Weight: Vital Signs Temp Pulse Resp BP BP Pulse Ox 03/19/20 08:14 98.0 F 76 16 155/86 H 97 03/19/20 07:43 98 03/19/20 05:44 125/63 03/19/20 03:53 97.7 F 68 18 113/58 L Admit Weight 217 lb 8 oz Weight 224 lb 6.889 oz - Physical Exam General: alert & oriented x3 HEENT: mucus membranes moist Neck: supple neck Cardiac: regular rate and rhythm Lungs: normal breath sounds Neuro: grossly intact Abdomen: active bowel sounds Extremities: no edema Skin: clear Musculoskeletal: no pain - Labs Result Diagrams: 03/12/20 15:30 03/18/20 10:24 Troponin/CKMB Troponin I 0.065 ng/mL (< 0.028) H 03/12/20 10:01 - Telemetry Sinus rhythms and dysrhythmias: sinus rhythm - Assessment/Plan Assessment/Plan: 1. Worsening dilated CM 2. Ischemic CM EF at 28% 3. CAD 4. S/P PCI to LAD and RCA with POOJA. 5. ESRD 6. Bed bugs 2 months ago, treated at home per her report. 7. In stent re stenosis recurrent to LAD and severe RCA disease. PLAN: - Severe ISR to prox LAD and severe RCA disease. - CABG today. - HD per nephrology.
[2020-03-19 13:51] LABS: HBCM Index 0.05 S/CO (0-0.79); HBSAg Index 0.12 S/CO (0-0.99); HIV (1/2) Antibody/Antigen Non-Reactive (NonReactive); HIV 1/2 INDEX 0.13 S/CO (<1.00); Hep A IgM AB Non-Reactive (NonReactive); Hep A IgM S/CO 0.33 S/CO (0-0.79); Hep B Surf Ag Non-Reactive S/CO (NonReactive); Hep C IgG Ab Non-Reactive (NonReactive); Hep C Index 0.08 S/CO (0-0.79); Hepatitis B Core IgM Abs Non-Reactive (NonReactive)
[2020-03-19] MEDS ORDERED: Norepinephrine 8 MG/0.9% NS 250 ML IVPB PRN (15:14)
[2020-03-19] MEDS ORDERED: Post-Op Insulin Drip Protocol IVPB ONE (15:14)
[2020-03-19] MEDS ORDERED: Nitroglycerin 50 MG/250 ML BOT 250 ML IVPB PRN (15:14)
[2020-03-19] MEDS ORDERED: Bisacodyl 5 MG TAB PO PRN (15:14)
[2020-03-19] MEDS ORDERED: hydrALAZINE 20 MG/ML VIAL SLOW IVP PRN (15:14)
[2020-03-19] MEDS ORDERED: Hetastarch 6% 500 ML 500 ML IVPB PRN (15:14)
[2020-03-19] MEDS ORDERED: Guaifenesin DM 100-10/5 ML UDCUP PO PRN (15:14)
[2020-03-19] MEDS ORDERED: Bisacodyl 10 MG SUPP PR PRN (15:14)
[2020-03-19] MEDS ORDERED: traMADol HCl 50 MG TAB PO PRN (15:14)
[2020-03-19] MEDS ORDERED: Ondansetron PF 4 MG/2 ML Vial IVP PRN (15:14)
[2020-03-19] MEDS ORDERED: Fentanyl 100 MCG/2 ML VIAL SLOW IVP PRN (15:14)
[2020-03-19] MEDS ORDERED: PHENYLEPHRINE-NS 100 MCG/ML 10 ML SYRINGE ONE ×2 (15:23→15:27)
[2020-03-19] MEDS ORDERED: Dextrose 5% in Water 1,000 ML IV PRN (15:24)
[2020-03-19] MEDS ORDERED: HUMULIN R 100 UNITS in Sodium Chloride 0.9% 100 ML IVPB SCH (15:24)
[2020-03-19] MEDS ORDERED: Dextrose 50% Abboject 50 ML SYRINGE SLOW IVP PRN (15:24)
[2020-03-19] MEDS ORDERED: Phenylephrine 10 MG/ML VIAL ONE (15:26)
[2020-03-19] MEDS ORDERED: Norepinephrine 8 MG/0.9% NS 250 ML ONE (15:31)
[2020-03-19 15:40] LABS: Actual Bicarbonate (HCO3a) 23.9 mEq/L (22-28); Base Excess (BEa) -0.4 mEq/L (-2.0 to +3.0); CO2 Tension 37.6 mmHg (35.0-45.0); Calcium, Ionized (arterial) 1.24 mmol/L (1.12-1.30); Carboxyhemoglobin (COHb) 0.7 gm% (0.0-3.0); Hemoglobin (Hb) 9.2 g/dL (12.0-16.0); O2 Tension (PaO2), arterial 134.8 mmHg (> 80.0); Potassium - ABG Lab 4.38 mmol/L (3.70-5.30); pH, Arterial 7.42 (7.35-7.45)
[2020-03-19 15:41] LABS: Puncture Site ALINE
[2020-03-19 15:44] LABS: #Basophils 0.1 thou/uL (0.0-0.2); #Eosinphils 0.1 thou/uL (0.0-0.7); #Lymphocytes 1.1 thou/uL (1.20-3.40); #Monocytes 0.3 thou/uL (0.11-0.59); #Neutrophils 10.9 thou/uL (1.40-6.50); %Basophils 0.4 % (0.0-1.0); %Eosinophils 0.8 % (0.0-10.0); %Lymphocytes 8.5 % (21.0-51.0); %Monocytes 2.3 % (0.0-10.0); Hemoglobin 8.5 g/dL (12.0-16.0); Mean Corpuscular HGB CONC 32.5 g/dL (32.0-36.0); Mean Corpuscular Hemoglobin 29.2 pg (27.0-31.0); Mean Corpuscular Volume 89.8 fL (78.0-98.0); Platelet Count 236 thou/uL (130-400); RBC Distribution Width 13.7 % (11.5-14.5); Red Blood Cell (RBC) Count 2.92 mill/uL (4.20-5.40); White Blood Cell (WBC) Count 12.4 thou/uL (4.8-10.8)
[2020-03-19 15:50] LABS: INR-International Normal Ratio 1.3; PTT 37.8 sec (22.9-36.1); Prothrombin Time 16.3 sec (12.0-14.7)
--- NOTE | 2020-03-19 15:54 | RAD ---
XR Chest 1 View Portable History: Open-heart surgery Comparison: Radiograph prior day Findings: Heart size is enlarged. Moderate effusions. New multiple midline sternotomy wires. Endotracheal tube tip at the clavicular level. Mediastinal drains are in good position. No large pneu mothorax. Multiple surgical clips along the right arm. Left subclavian central venous catheter tip projects over the inferior SVC. Dialysis catheter tip pro jects over the right atrium. Impression: Expected postoperative findings without complication.
[2020-03-19 16:06] LABS: Anion Gap 14 mmol/L (10-20); BUN (Urea Nitrogen) 31 mg/dL (9.8-20.1); Calc. Creatinine Clearance 47 mL/min (70-130); Calcium 8.8 mg/dL (7.8-10.44); Carbon Dioxide 23 mmol/L (23-31); Chloride 101 mmol/L (98-107); Estimated GFR-MDRD 26; Glucose 82 mg/dL (80-115); Potassium 4.5 mmol/L (3.5-5.1); Sodium 133 mmol/L (136-145)
[2020-03-19] MEDS: Sodium Chloride 0.9% 1,000 ML IV SCH (16:20)
[2020-03-19] MEDS: CEFAZOLIN 2 GM in Premix Bag 1 BAG IVPB SCH (17:15)
[2020-03-19] MEDS: Fentanyl 100 MCG/2 ML VIAL SLOW IVP PRN (19:47)
--- NOTE | 2020-03-19 19:50 | OP ---
DATE OF PROCEDURE: 03/19/2020 PREOPERATIVE DIAGNOSES: Coronary artery disease/hypertension/dyslipidemia/diabetes mellitus/depressed left ventricular ejection fraction/end-stage renal disease, on hemodialysis/morbid obesity. POSTOPERATIVE DIAGNOSES: Coronary artery disease/hypertension/dyslipidemia/diabetes mellitus/depressed left ventricular ejection fraction/end-stage renal disease, on hemodialysis/morbid obesity. PROCEDURES PERFORMED: Coronary artery bypass grafting x2 - 1. Left internal mammary artery to 1.5 mm mid left anterior descending - good conduit and small diffusely diseased target. 2. Reverse saphenous vein to 1.25 mm posterolateral branch - good conduit and small diffusely diseased target. This is not a redo target. DIRECTOR IMMUNOLOGY: Jeff Khan MD ANESTHESIA: General endotracheal, Dr. Jaime Isabel. PUMP TIME: 39 minutes. CROSSCLAMP TIME: 24 minutes. LOW-CORE TEMPERATURE: 34 degrees Celsius. NURSING UNIT COORDINATOR: Yi Doan. DRAINS: 24-Albanian chest tubes x2. DRIPS: Levophed. TRANSFUSIONS: None. DESCRIPTION OF PROCEDURE: After consent was obtained, the patient was brought to the operating room and placed in supine position on the operating table. Appropriate central line and monitors were placed and general endotracheal anesthesia was induced. Chest, abdomen, and legs were prepped and draped in usual sterile fashion. Greater saphenous vein was harvested from the left lower extremity. Wounds irrigated and closed in layers. Median sternotomy was performed. Left internal mammary artery was harvested as a pedicle graft. The patient was systemically heparinized. There was significant bleeding from the mammary bed and all the sternal cut surfaces. Vigorous attempts were made prior to heparinization to control as much of bleeding as we could. After the patient was heparinized, the distal pedicle was divided and infused with papaverine. Thymic fat and pericardium were divided with electrocautery. Pericardial stay sutures were placed. Aortic and atrial cannulation was performed. After adequate heparinization, retrograde prime was performed. The patient was placed on cardiopulmonary bypass. Aortic cross-clamp was applied, and antegrade sanguineous cardioplegic arrest was obtained. 1 L of antegrade cold [place] cardioplegia was given. Topical cold solution was used. Reverse saphenous vein was anastomosed to the only bypassable PL branch. Anastomosis was tested and was hemostatic. Mammary artery was brought through a window in the pericardium and anastomosed to LAD in end-to-side fashion with running 7-0 Prolene suture. Anastomosis was tested and was hemostatic. On release of mammary clamps, good hooding of the anastomosis and good distal flow. Pedicle was secured with interrupted 6-0 Prolene suture. Cross-clamp was removed and partial occluding clamp placed. Saphenous vein was anastomosed to the aorta with running 6-0 Prolene suture. Partial occluding clamp was removed and graft was deaired. Anastomoses were inspected for hemostasis, which was good. The patient was warmed and weaned from cardiopulmonary bypass. After resumption of sinus rhythm, good hemodynamics, temperature greater 36.5, bypass was discontinued. Transfusions were given. 2 units of platelets were given. Decannulation was performed, a pursestring suture secured. The aortic cannulation site was reinforced with vein pledgeted 4-0 prolene suture. Vancomycin paste was placed on the sternal edges. After adequate hemostasis has been obtained, 24-Albanian chest tubes x2 were placed in mediastinum. Sternum was closed with #7 wire. Sternum was treated with platelet rich plasma and wires twisted and buried. Peristernal block was performed with 0.5% Marcaine mixed with Decadron. The sternum was then treated with platelet-rich plasma after irrigation and closed in multiple layers. Needle, sponge, and instrument counts were all reported as correct at the end of the procedure. The patient tolerated the procedure well, was transferred to the intensive care unit in stable, critical condition. Job ID: [id number]
[2020-03-19 21:15] LABS: Hemoglobin 9.2 g/dL (12.0-16.0)
[2020-03-19 21:29] LABS: Potassium 4.5 mmol/L (3.5-5.1)
[2020-03-19] MEDS: Famotidine/PF 20 mg/2ml Vial SLOW IVP SCH (21:46)
[2020-03-19] MEDS: Morphine 2 MG/ML VIAL SLOW IVP PRN (21:59)
[2020-03-20] MEDS: CEFAZOLIN 2 GM in Premix Bag 1 BAG IVPB SCH ×2 (02:43→09:42)
[2020-03-20] MEDS: Fentanyl 100 MCG/2 ML VIAL SLOW IVP PRN ×2 (02:57→23:42)
[2020-03-20 03:39] LABS: #Lymphocytes 0.5 thou/uL (1.20-3.40); #Monocytes 0.4 thou/uL (0.11-0.59); #Neutrophils 4.6 thou/uL (1.40-6.50); %Basophils 0.5 % (0.0-1.0); %Eosinophils 0.1 % (0.0-10.0); %Lymphocytes 9.1 % (21.0-51.0); %Neutrophils 83.4 % (42.0-75.0); Hemoglobin 7.9 g/dL (12.0-16.0); Mean Corpuscular HGB CONC 33.4 g/dL (32.0-36.0); Mean Corpuscular Volume 89.8 fL (78.0-98.0); Mean Platelet Volume 9.5 fL (7.4-10.4); Platelet Count 202 thou/uL (130-400); RBC Distribution Width 13.7 % (11.5-14.5); Red Blood Cell (RBC) Count 2.63 mill/uL (4.20-5.40); White Blood Cell (WBC) Count 5.5 thou/uL (4.8-10.8)
[2020-03-20 03:59] LABS: Anion Gap 14 mmol/L (10-20); BUN (Urea Nitrogen) 39 mg/dL (9.8-20.1); Calc. Creatinine Clearance 41 mL/min (70-130); Calcium 8.9 mg/dL (7.8-10.44); Carbon Dioxide 22 mmol/L (23-31); Chloride 101 mmol/L (98-107); Estimated GFR-MDRD 21; Glucose 143 mg/dL (80-115); Potassium 4.4 mmol/L (3.5-5.1); Sodium 133 mmol/L (136-145)
--- NOTE | 2020-03-20 07:55 | CON ---
DATE OF CONSULTATION: 03/20/2020 REASON FOR CONSULTATION: Postop respiratory failure related to coronary artery bypass grafting surgery. HISTORY OF PRESENT ILLNESS: A 64-year-old female who was originally admitted to the facility on March 12. She was found to have a congestive heart failure exacerbation. She underwent cardiac catheterization and subsequently underwent coronary artery bypass grafting surgery on 2 vessels yesterday. She was left intubated last night, because respiratory therapist did not feel she was ready to extubate. She is awake and alert this morning and looks good. PAST MEDICAL HISTORY: 1. Coronary artery disease. 2. Fibromyalgia. 3. Depression. 4. Chronic renal failure requiring hemodialysis. 5. Type 2 diabetes mellitus. 6. COPD. 7. Chronic atrial fibrillation. 8. Mitral valve regurgitation. PAST SURGICAL HISTORY: Right leg surgery, AV shunt placement of right arm, and cyst removal in left arm. FAMILY MEDICAL HISTORY: Unremarkable. SOCIAL HISTORY: Nonsmoker. Does not consume alcohol. ALLERGIES: LATEX, DEMEROL, MORPHINE, AND ASPIRIN. REVIEW OF SYSTEMS: Cannot be obtained, because the patient is intubated. MEDICATIONS: Reviewed. See summary section in the chart. PHYSICAL EXAMINATION: VITAL SIGNS: Blood pressure 121/41, CVP 7, respiratory rate 14, O2 saturation generally in the mid 90s, and heart rate 85. HEENT: Unremarkable. NECK: No adenopathy or JVD. LUNGS: Clear without wheezing or rhonchi. CARDIOVASCULAR: S1 and S2, regular with 2/6 systolic murmur to left sternal border. ABDOMEN: Soft, obese, nontender, and nondistended. She has [address] EXTREMITIES: No clubbing, cyanosis, or edema. LABORATORY DATA: Sodium 133, potassium 4.4, chloride 101, CO2 of 22, BUN 39, creatinine 2.3, and glucose 143. White blood cell count 5.3, hematocrit 23.6, and platelet count 202. Chest x-ray shows no mass, effusion, or infiltrate. ASSESSMENT: 1. Post coronary artery bypass grafting surgery. 2. Chronic renal failure. 3. Postop vent. PLAN: Extubate and observe. I placed her on spontaneous breathing trial and she seemed to be doing fine. She did not receive any sedation since about 02:30 in the morning. Extubation was accomplished without difficulty. Dialysis is planned for later today. Job ID: [id number]
[2020-03-20] MEDS: Famotidine/PF 20 mg/2ml Vial SLOW IVP SCH ×2 (09:00→21:57)
[2020-03-20] MEDS: Morphine 2 MG/ML VIAL SLOW IVP PRN (09:00)
--- NOTE | 2020-03-20 09:25 | RAD ---
PORTABLE CHEST: Date: 03/20/2020 INDICATION: Postop sternotomy follow-up. CCU follow-up. COMPARISON: 03/19/2020. FINDINGS/IMPRESSION: ET tube remains in place. Central lines are unchanged. Mild cardiomegaly with postop sternotomy sotelo e. Chest drainage catheters are unchanged. The lungs appear aerated with no evidence of pneumothorax or focal consolidation. No acute change from yesterday. POS: AGW
[2020-03-20] MEDS: Vancomycin 1 GM in Premix Bag 1 BAG IVPB SCH (09:38)
--- NOTE | 2020-03-20 09:58 | PRG ---
DATE OF SERVICE: 03/20/2020 WEEKLY FOLLOWUP SUBJECTIVE: Ms. Mendez underwent bypass surgery yesterday, did well. She is awake and alert. She is extubated. OBJECTIVE: VITAL SIGNS: Blood pressure is 95/48, pulse is in the 90s and sinus with occasional PVC. LUNGS: Clear. CARDIAC: Normal S1, normal S2. ASSESSMENT: 1. Status post bypass surgery. 2. End-stage renal disease. PLAN: Likely undergo hemodialysis today. Job ID: [id number]
--- NOTE | 2020-03-20 11:19 | PRG ---
DATE OF SERVICE: 03/20/2020 SUBJECTIVE: A 64-year-old female being seen for end-stage renal disease. The patient denied nausea, vomiting, or chest pain. PHYSICAL EXAMINATION: General: The patient is awake and alert. Vital Signs: Afebrile, pulse 75, breathing 16, blood pressure 112/48. HEENT: Head normocephalic and atraumatic. Eyes intact, no ulcers. Nose intact, no ulcers. Ears intact, no ulcers. Neck: Supple. No JVD. Chest: Symmetrical and clear. Cardiovascular: Shows S1 and S2, no rub, no murmur. Gastrointestinal: Abdomen is soft, bowel sounds positive. Extremities: Show no edema or ulcers. Skin: Shows no rash or petechiae. Musculoskeletal: Shows no joint swelling or stiffness. Genitourinary: Shows no Howard or CVA tenderness. Neurologic: Motor intact. Cranial nerves intact. LABORATORY DATA: Labs show hemoglobin 7.9. Creatinine 2.3. ASSESSMENT AND PLAN: Chronic kidney disease, stage 6. No urgent indication for dialysis today. Hypertension, stable. Anemia, we will recheck hemoglobin today. Medication based on GFR appropriate. We will see the patient again later this evening and evaluate need for dialysis if condition changes. Job ID: [id number]
[2020-03-20 11:47] LABS: Hemoglobin 7.6 g/dL (12.0-16.0)
[2020-03-20] MEDS: Sodium Chloride 0.9% 1,000 ML IV SCH (17:49)
[2020-03-20] MEDS: traMADol HCl 50 MG TAB PO PRN (18:07)
[2020-03-20] MEDS: Insulin Regular 300 UNITS/3 ML VIAL SC PRN (21:59)
--- NOTE | 2020-03-20 23:01 | PDOC.HOSPP ---
- Subjective Encounter Date: 03/20/20 Encounter Time: 15:00 Subjective: Patient seen and examined for chest discomfort with abnormal stress test. Extubated this morning. Denies any chest pain. Some discomfort over the surgical side. - Objective Vital Signs & Weight: Vital Signs (12 hours) Temp Pulse Resp Pulse Ox 03/20/20 20:00 100 03/20/20 19:00 98.7 F 03/20/20 18:32 98 16 03/20/20 16:00 98.3 F 03/20/20 13:30 96 10 L 03/20/20 12:00 98.0 F Weight Admit Weight 217 lb 8 oz Weight 224 lb 6.889 oz Most Recent Monitor Data Heart Rate from ECG 94 NIBP 99/47 NIBP BP-Mean 64 Respiration from ECG 27 SpO2 99 I&O: 03/19/20 03/20/20 03/21/20 06:59 06:59 06:59 Intake Total 730 498.7 1011 Output Total 1200 1550 395 Balance -470 -1051.3 616 Result Diagrams: 03/20/20 11:24 03/20/20 03:18 Additional Labs: Accuchecks 03/20/20 03/20/20 03/20/20 06:13 05:11 04:28 POC Glucose 107 132 H 146 H 03/20/20 03/20/20 03/20/20 03:23 02:14 00:12 POC Glucose 147 H 124 H 158 H 03/19/20 03/19/20 03/18/20 23:15 22:13 17:06 POC Glucose 127 H 135 H 150 H EKG Reviewed by me: Yes (Sinus rhythm on telemetry) Hospitalist ROS - Review of Systems Respiratory: denies: cough, dry, shortness of breath, hemoptysis, SOB with excertion, pleuritic pain, sputum, wheezing, other Cardiovascular: reports: chest pain. denies: palpitations, orthopnea, paroxysmal noc. dyspnea, edema, light headedness, other - Medication Medications: Active Medications Generic Name Dose Route Start Last Admin Trade Name Freq PRN Reason Stop Dose Admin Albuterol/Ipratropium 3 ml 03/19/20 19:00 03/20/20 18:32 Duoneb NEB 3 ml [id number] CECILIA Administration Famotidine 20 mg 03/19/20 21:00 03/20/20 21:57 Pepcid SLOW IVP 20 mg Q12HR CECILIA Administration Fentanyl 25 mcg 03/19/20 15:14 03/20/20 19:20 Sublimaze SLOW IVP 03/21/20 14:59 25 mcg Q2H PRN Administration Moderate Pain (4-6) Fentanyl 50 mcg 03/19/20 15:14 03/20/20 02:57 Sublimaze SLOW IVP 03/21/20 14:59 50 mcg Q2H PRN Administration Severe Pain (7-10) Sodium Chloride 1,000 mls @ 30 mls/hr 03/19/20 15:14 03/20/20 17:49 Normal Saline 0.9% IV 1,000 mls .Q24H CECILIA Administration Vancomycin HCl 1 gm/ Device 200 mls @ 200 mls/hr 03/20/20 10:00 03/20/20 09:38 IVPB 03/21/20 10:59 200 mls 1000 CECILIA Administration Insulin Human Regular 100 101 mls @ 0 mls/hr 03/19/20 15:24 03/19/20 20:03 units/ Sodium Chloride IVPB 101 mls INF CECILIA Administration Protocol As Directed Insulin Human Regular 0 units 03/19/20 15:24 03/20/20 21:59 Humulin R SC 8 unit Q4H PRN Administration POST OP SLIDING SCALE Protocol Morphine Sulfate 2 mg 03/19/20 15:14 03/20/20 09:00 Morphine SLOW IVP 2 mg Q15MIN PRN Administration Severe Pain (7-10) Ondansetron HCl 4 mg 03/19/20 15:14 03/19/20 21:59 Zofran IVP 4 mg Q6H PRN Administration Nausea/Vomiting Tramadol HCl 100 mg 03/19/20 15:14 03/20/20 18:07 Ultram PO 100 mg Q12H PRN Administration Pain - Exam General Appearance: NAD Neck: supple, no JVD Heart: no gallops, no rubs Respiratory: CTAB, no rales Gastrointestinal: soft, non-tender, normal bowel sounds Extremities: no cyanosis Hosp A/P (1) Chest pain Code(s): R07.9 - CHEST PAIN, UNSPECIFIED Status: Acute Qualifiers: Ischemic chest pain type: unspecified angina pectoris type (2) CAD (coronary artery disease) Code(s): I25.10 - ATHSCL HEART DISEASE OF [place] CORONARY ARTERY W/O ANG PCTRS Status: Chronic (3) S/P CABG (coronary artery bypass graft) Code(s): Z95.1 - PRESENCE OF AORTOCORONARY BYPASS GRAFT Status: Acute (4) Chronic combined systolic and diastolic congestive heart failure Code(s): I50.42 - CHRONIC COMBINED SYSTOLIC AND DIASTOLIC HRT FAIL Status: Chronic (5) COPD (chronic obstructive pulmonary disease) Status: Chronic (6) DM type 2 (diabetes mellitus, type 2) Status: Chronic Qualifiers: Diabetes mellitus nursing home insulin use: with rn long term care use Diabetes mellitus complication status: with kidney complications Diabetes mellitus complication detail: with chronic kidney disease Chronic kidney disease stage: stage 3 (moderate) Qualified Code(s): E11.22 - Type 2 diabetes mellitus with diabetic chronic kidney disease; N18.3 - Chronic kidney disease, stage 3 (moderate); Z79.4 - MCFP (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 of insulin (7) ESRD (end stage renal disease) on dialysis Code(s): N18.6 - END STAGE RENAL DISEASE; Z99.2 - DEPENDENCE ON RENAL DIALYSIS Status: Chronic (8) HLD (hyperlipidemia) Code(s): E78.5 - HYPERLIPIDEMIA, UNSPECIFIED Status: Chronic (9) HTN (hypertension) Code(s): I10 - ESSENTIAL (PRIMARY) HYPERTENSION Status: Chronic (10) Hypothyroidism Code(s): E03.9 - HYPOTHYROIDISM, UNSPECIFIED Status: Chronic (11) Ischemic cardiomyopathy Code(s): I25.5 - ISCHEMIC CARDIOMYOPATHY Status: Chronic (12) Obesity (BMI 30.0-34.9) Code(s): E66.9 - OBESITY, UNSPECIFIED Status: Chronic - Plan 03/20 Continue postoperative care in critical care unit. Continue with insulin drip. Continue Plavix. Pain control. Continue other medications as above. A.m. labs.
[2020-03-21] MEDS: Acetaminophen 325 MG TAB PO PRN (00:45)
[2020-03-21 01:35] LABS: #Lymphocytes 1.1 thou/uL (1.20-3.40); #Monocytes 1.8 thou/uL (0.11-0.59); #Neutrophils 10.8 thou/uL (1.40-6.50); %Basophils 0.2 % (0.0-1.0); %Eosinophils 0.1 % (0.0-10.0); %Monocytes 12.8 % (0.0-10.0); %Neutrophils 78.9 % (42.0-75.0); Hemoglobin 8.1 g/dL (12.0-16.0); Mean Corpuscular HGB CONC 32.7 g/dL (32.0-36.0); Mean Corpuscular Hemoglobin 29.7 pg (27.0-31.0); Mean Corpuscular Volume 90.8 fL (78.0-98.0); Platelet Count 284 thou/uL (130-400); RBC Distribution Width 13.8 % (11.5-14.5); Red Blood Cell (RBC) Count 2.74 mill/uL (4.20-5.40); White Blood Cell (WBC) Count 13.7 thou/uL (4.8-10.8)
[2020-03-21 02:38] LABS: Anion Gap 15 mmol/L (10-20); BUN (Urea Nitrogen) 49 mg/dL (9.8-20.1); Calc. Creatinine Clearance 27 mL/min (70-130); Calcium 8.7 mg/dL (7.8-10.44); Carbon Dioxide 23 mmol/L (23-31); Chloride 99 mmol/L (98-107); Estimated GFR-MDRD 13; Glucose 258 mg/dL (80-115); Potassium 5.3 mmol/L (3.5-5.1); Sodium 132 mmol/L (136-145)
[2020-03-21] MEDS: Fentanyl 100 MCG/2 ML VIAL SLOW IVP PRN ×3 (04:26→13:14)
[2020-03-21] MEDS: Insulin Regular 300 UNITS/3 ML VIAL SC PRN ×4 (07:42→21:48)
[2020-03-21] MEDS: Pregabalin 75 MG CAP PO SCH ×2 (07:47→21:44)
[2020-03-21] MEDS: Famotidine/PF 20 mg/2ml Vial SLOW IVP SCH ×2 (08:39→21:44)
[2020-03-21] MEDS: Clopidogrel Bisulfate 75 MG TAB PO SCH (08:39)
--- NOTE | 2020-03-21 08:56 | RAD ---
PORTABLE CHEST: HISTORY: Postop sternotomy. COMPARISON: 03/20/20 FINDINGS: Cardiomegaly. Postop sternotomy change. ET tube has been removed. The central lines are unchanged and the chest drainage catheters are unchanged. The lungs are aerated and clear without pneumothorax. Sm all effusions and mild bibasilar atelectasis. No acute interval change. POS: AGW
[2020-03-21] MEDS: Vancomycin 1 GM in Premix Bag 1 BAG IVPB SCH (09:08)
--- NOTE | 2020-03-21 10:03 | PDOC.HOSPP ---
- Subjective Encounter Date: 03/21/20 Encounter Time: 09:30 Subjective: Patient seen and examined for coronary artery disease status post CABG. Some discomfort over the surgical site. No chest pain. Was started on low-dose Levophed last night. No shortness of breath or palpitations reported. Feels generally weak and fatigue. - Objective Vital Signs & Weight: Vital Signs (12 hours) Temp Pulse Resp Pulse Ox 03/21/20 08:00 98.5 F 100 03/21/20 07:12 101 H 12 100 03/21/20 04:00 99.3 F 03/21/20 00:00 98.8 F 03/20/20 23:12 100 14 100 Weight Admit Weight 217 lb 8 oz Weight 224 lb 6.889 oz Most Recent Monitor Data Heart Rate from ECG 101 NIBP 97/74 NIBP BP-Mean 81 Respiration from ECG 12 SpO2 100 I&O: 03/20/20 03/21/20 03/22/20 06:59 06:59 06:59 Intake Total 498.7 1710 140 Output Total 1550 545 0 Balance -1051.3 1165 140 Result Diagrams: 03/21/20 01:27 03/21/20 01:27 Additional Labs: Accuchecks 03/20/20 03/20/20 03/18/20 22:02 11:31 17:06 POC Glucose 251 H 146 H 150 H Radiology Reviewed by me: Yes (Chest x-ray no new changes) EKG Reviewed by me: Yes (Telemetrysinus rhythm) Hospitalist ROS - Review of Systems Respiratory: denies: cough, dry, shortness of breath, hemoptysis, SOB with excertion, pleuritic pain, sputum, wheezing, other Cardiovascular: denies: chest pain, palpitations, orthopnea, paroxysmal noc. dyspnea, edema, light headedness, other - Medication Medications: Active Medications Generic Name Dose Route Start Last Admin Trade Name Freq PRN Reason Stop Dose Admin Acetaminophen 650 mg 03/19/20 15:14 03/21/20 00:45 Tylenol PO 650 mg Q6H PRN Administration Headache/Fever Or Mild Pain Albuterol/Ipratropium 3 ml 03/19/20 19:00 03/21/20 07:12 Duoneb NEB 3 ml [id number] CECILIA Administration Clopidogrel Bisulfate 75 mg 03/21/20 09:00 03/21/20 08:39 Plavix PO 75 mg DAILY CECILIA Administration Famotidine 20 mg 03/19/20 21:00 03/21/20 08:39 Pepcid SLOW IVP 20 mg Q12HR CECILIA Administration Fentanyl 25 mcg 03/19/20 15:14 03/20/20 19:20 Sublimaze SLOW IVP 03/21/20 14:59 25 mcg Q2H PRN Administration Moderate Pain (4-6) Fentanyl 50 mcg 03/19/20 15:14 03/21/20 08:43 Sublimaze SLOW IVP 03/21/20 14:59 50 mcg Q2H PRN Administration Severe Pain (7-10) Sodium Chloride 1,000 mls @ 30 mls/hr 03/19/20 15:14 03/20/20 17:49 Normal Saline 0.9% IV 1,000 mls .Q24H CECILIA Administration Vancomycin HCl 1 gm/ Device 200 mls @ 200 mls/hr 03/20/20 10:00 03/21/20 09:08 IVPB 03/21/20 10:59 200 mls 1000 CECILIA Administration Insulin Human Regular 100 101 mls @ 0 mls/hr 03/19/20 15:24 03/19/20 20:03 units/ Sodium Chloride IVPB 101 mls INF CECILIA Administration Protocol As Directed Insulin Human Regular 0 units 03/19/20 15:24 03/21/20 07:42 Humulin R SC 6 unit Q4H PRN Administration POST OP SLIDING SCALE Protocol Morphine Sulfate 2 mg 03/19/20 15:14 03/20/20 09:00 Morphine SLOW IVP 2 mg Q15MIN PRN Administration Severe Pain (7-10) Ondansetron HCl 4 mg 03/19/20 15:14 03/19/20 21:59 Zofran IVP 4 mg Q6H PRN Administration Nausea/Vomiting Pregabalin 75 mg 03/21/20 09:00 03/21/20 07:47 Lyrica PO 75 mg BID CECILIA Administration Sodium Chloride 10 ml 03/21/20 09:00 03/21/20 09:58 Flush - Normal Saline IVF 10 ml Q12HR CECILIA Administration Tramadol HCl 100 mg 03/19/20 15:14 03/20/20 18:07 Ultram PO 100 mg Q12H PRN Administration Pain - Exam General Appearance: NAD General - other findings: On Levophed. Howard, chest tube present Neck: supple, no JVD Heart: RRR, no gallops Respiratory: no wheezes, no ronchi Gastrointestinal: soft, non-tender, normal bowel sounds Extremities: no cyanosis, no edema Psychiatric: A&O x 3 Hosp A/P (1) Chest pain Code(s): R07.9 - CHEST PAIN, UNSPECIFIED Status: Acute Qualifiers: Ischemic chest pain type: unspecified angina pectoris type (2) CAD (coronary artery disease) Code(s): I25.10 - ATHSCL HEART DISEASE OF [place] CORONARY ARTERY W/O ANG PCTRS Status: Chronic (3) S/P CABG (coronary artery bypass graft) Code(s): Z95.1 - PRESENCE OF AORTOCORONARY BYPASS GRAFT Status: Acute (4) Chronic combined systolic and diastolic congestive heart failure Code(s): I50.42 - CHRONIC COMBINED SYSTOLIC AND DIASTOLIC HRT FAIL (5) COPD (chronic obstructive pulmonary disease) Status: Chronic (6) DM type 2 (diabetes mellitus, type 2) Status: Chronic Qualifiers: Diabetes mellitus longterm insulin use: with terminal 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 up operator use Diabetes mellitus complication status: with kidney complications Diabetes mellitus complication detail: with chronic kidney disease Chronic kidney disease stage: stage 3 (moderate) Qualified Code(s): E11.22 - Type 2 diabetes mellitus with diabetic chronic kidney disease; N18.3 - Chronic kidney disease, stage 3 (moderate); Z79.4 - custodial (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 of insulin (7) ESRD (end stage renal disease) on dialysis Code(s): N18.6 - END STAGE RENAL DISEASE; Z99.2 - DEPENDENCE ON RENAL DIALYSIS Status: Chronic (8) Urinary retention Code(s): R33.9 - RETENTION OF URINE, UNSPECIFIED Status: Acute (9) HLD (hyperlipidemia) Code(s): E78.5 - HYPERLIPIDEMIA, UNSPECIFIED Status: Chronic (10) HTN (hypertension) Code(s): I10 - ESSENTIAL (PRIMARY) HYPERTENSION Status: Chronic (11) Hypothyroidism Code(s): E03.9 - HYPOTHYROIDISM, UNSPECIFIED Status: Chronic (12) Ischemic cardiomyopathy Code(s): I25.5 - ISCHEMIC CARDIOMYOPATHY Status: Chronic (13) Obesity (BMI 30.0-34.9) Code(s): E66.9 - OBESITY, UNSPECIFIED Status: Chronic - Plan DVT proph w/SCDs 03/21 Continue postoperative care. On low-dose Levophed. Plavix and Lyrica started earlier today. Pain control. Continue Howard catheter. Continue Accu-Cheks. Recheck labs in a.m. Chest x-ray in a.m. physical therapy consulted 03/20 Continue postoperative care in critical care unit. Continue with insulin drip. Continue Plavix. Pain control. Continue other medications as above. A.m. labs.
--- NOTE | 2020-03-21 10:22 | PRG ---
DATE OF SERVICE: 03/21/2020 SUBJECTIVE: She was successfully extubated yesterday. She is complaining of pain and anxiety. OBJECTIVE: VITAL SIGNS: Her temperature is 99.3, pulse 101, blood pressure 109/52, and O2 saturation 100%. She is currently on Levophed at 5 mcg/minute. Her 24-hour intake was 1710, output 545. She did not receive dialysis yesterday. GENERAL: She does not appear in distress. HEENT: Unremarkable. NECK: No adenopathy or JVD. LUNGS: Clear without wheezing or rhonchi. CARDIOVASCULAR: S1, S2 regular. ABDOMEN: Soft. EXTREMITIES: No edema. DIAGNOSTIC DATA: Chest x-ray shows bilateral small pleural effusions, dialysis catheter and central line in place. LABORATORY DATA: Hemoglobin 8.1, hematocrit 24.8, white blood cell count 13.7, and platelet count 284. Sodium 132, potassium 5.3, chloride 99, CO2 of 23, BUN 49, creatinine 3.5, and glucose 258. ASSESSMENT: 1. Status post coronary artery bypass grafting surgery with postoperative respiratory failure, which has now resolved. 2. Chronic renal failure, requiring dialysis. 3. Coronary artery disease. 4. Anxiety. PLAN: 1. I have restarted her Xanax and Lyrica at reduced doses. 2. We will probably need dialysis scan in the next day or 2. 3. We will remain in the ICU until she no longer needs Levophed drip. Job ID: [id number]
[2020-03-21] MEDS: Amiodarone 450 MG, Admixture Fee 1 EACH in Dextrose 5% in Water 250 ML IVPB SCH (13:44)
[2020-03-21] MEDS: Sodium Chloride 0.9% 1,000 ML IV SCH (13:52)
--- NOTE | 2020-03-21 15:42 | PRG ---
DATE OF SERVICE: 03/21/2020 SUBJECTIVE: Ms. Mendez went into rapid atrial fibrillation. This morning, she has been started on intravenous amiodarone, but the heart rate is still 110 to 130. She feels short of breath with that heart rate. OBJECTIVE: VITAL SIGNS: Her blood pressure is in the 90 systolic range. She is on Levophed. LUNGS: Clear. CARDIAC: Irregularly irregular. ABDOMEN: Soft, nontender. EXTREMITIES: There is mild edema. ASSESSMENT: 1. Status post bypass surgery. 2. Atrial fibrillation with a rapid rate. 3. End-stage renal disease. PLAN: 1. We will give her one dose of digoxin to try to lower her heart rate, so she can be more adequately dialyzed. 2. Continue intravenous amiodarone. Job ID: [id number]
[2020-03-21] MEDS ORDERED: Digoxin 0.5 MG/2 ML AMP SLOW IVP SCH ×2 (15:45)
--- NOTE | 2020-03-21 16:23 | PRG ---
DATE OF SERVICE: 03/21/2020 SUBJECTIVE: A 64-year-old female being seen for end-stage renal disease. The patient denied any nausea, vomiting, or chest pain. PHYSICAL EXAMINATION: General: The patient is awake and alert. Vital Signs: Afebrile, pulse 99, breathing at 16, blood pressure 111/58. HEENT: Head normocephalic and atraumatic. Eyes intact, no ulcers. Nose intact, no ulcers. Ears intact, no ulcers. Neck: Supple. No JVD. Chest: Symmetrical and clear. Cardiovascular: Shows S1 and S2, no rub, no murmur. Gastrointestinal: Abdomen is soft, bowel sounds positive. Extremities: Show no edema or ulcers. Skin: Shows no rash or petechiae. Musculoskeletal: Shows no joint swelling or stiffness. Genitourinary: Shows no Howard or CVA tenderness. Neurologic: Motor intact. Cranial nerves intact. LABORATORY DATA: Labs show hemoglobin 8.1. Potassium is 5.2. ASSESSMENT AND PLAN: 1. Stage 6 chronic kidney disease, plan dialysis. 2. Hyperkalemia, plan dialysis. 3. Anemia, agree with transfusion. 4. Hypertension. We will minimize ultrafiltration. Job ID: [id number]
[2020-03-21] MEDS: traMADol HCl 50 MG TAB PO PRN (17:42)
[2020-03-21] MEDS: ALPRAZolam 0.25 MG TAB PO PRN ×2 (17:44→21:46)
[2020-03-22] MEDS: Acetaminophen 325 MG TAB PO PRN (02:08)
[2020-03-22] MEDS: Amiodarone 450 MG, Admixture Fee 1 EACH in Dextrose 5% in Water 250 ML IVPB SCH ×2 (02:09→13:32)
[2020-03-22 05:53] LABS: Anion Gap 14 mmol/L (10-20); BUN (Urea Nitrogen) 34 mg/dL (9.8-20.1); Calc. Creatinine Clearance 31 mL/min (70-130); Calcium 8.3 mg/dL (7.8-10.44); Carbon Dioxide 24 mmol/L (23-31); Chloride 100 mmol/L (98-107); Estimated GFR-MDRD 16; Glucose 150 mg/dL (80-115); Potassium 4.4 mmol/L (3.5-5.1); Sodium 134 mmol/L (136-145)
[2020-03-22] MEDS: Insulin Regular 300 UNITS/3 ML VIAL SC PRN ×2 (05:58→21:54)
[2020-03-22 06:05] LABS: Band 2 % (5-11); Eosinophils 1 % (0-10); Lymphocytes 20 % (21-51); MDiff Complete? YES; Mean Corpuscular Hemoglobin 29.1 pg (27.0-31.0); Mean Corpuscular Volume 90.8 fL (78.0-98.0); Mean Platelet Volume 9.2 fL (7.4-10.4); Monocytes 3 % (0-10); Platelet Count 165 thou/uL (130-400); RBC Distribution Width 13.7 % (11.5-14.5); Red Blood Cell (RBC) Count 2.41 mill/uL (4.20-5.40); White Blood Cell (WBC) Count 6.6 thou/uL (4.8-10.8)
--- NOTE | 2020-03-22 08:00 | RAD ---
CHEST 1 VIEW PORTABLE: HISTORY: Postop open heart surgery. COMPARISON: 03/21/2020. FINDINGS: Persistent vascular congestion, small bilateral pleural effusions, and minimal cardiomegaly. Recent postop midline sternotomy. Left-sided subclavian catheter and right-sided venous access catheter. N o significant pneumothorax. IMPRESSION: Stable congestion, small pleural effusions, and minimal cardiomegaly. Continued short-term followup. POS: OFF
[2020-03-22] MEDS: Clopidogrel Bisulfate 75 MG TAB PO SCH (09:33)
[2020-03-22] MEDS: Pregabalin 75 MG CAP PO SCH ×2 (09:34→21:53)
[2020-03-22] MEDS: ALPRAZolam 0.25 MG TAB PO PRN ×3 (09:41→21:54)
--- NOTE | 2020-03-22 11:28 | PRG ---
DATE OF SERVICE: 03/22/2020 SUBJECTIVE: Patient was seen and examined at bedside and overnight events noted. Patient denies any shortness of breath or chest pain or palpitation. No history of nausea or vomiting or diarrhea or fever or chills or cramps. OBJECTIVE: GENERAL: This is a well-built female, in no apparent distress. Look very lethargic. VITAL SIGNS: Temperature 98.1. Heart rate 119. Respiratory rate 20. Blood pressure 115/39 HEENT: Atraumatic, normocephalic. Oral mucosa is moist. NECK: Supple. CARDIOVASCULAR: S1, S2 heard. Rate and rhythm regular. RESPIRATORY: Clear to auscultation. GASTROINTESTINAL: Abdomen is soft. MUSCULOSKELETAL: No tenderness. No edema. DERMATOLOGIC: No skin rash. NEUROLOGIC: Alert and awake and oriented x3. No focal neurologic deficits. Moving all the extremities. PSYCHIATRIC: Mood and affect normal. LABORATORY DATA: Potassium 4.4, BUN is 34, and creatinine is 2.9. Hemoglobin is 7.0. ASSESSMENT AND PLAN: 1. End-stage renal disease, on hemodialysis. Plan is to have dialysis today. The patient looks little bit fragile and with a complex cardiac history, she remains high risk for complication during dialysis, but she needs dialysis and need a blood transfusion today. Plan is to have blood transfusion with dialysis as tolerated if she can tolerate 2 units. 2. Anemia. We will give 2 units of blood with dialysis. We will also add Epogen. 3. Edema. We will remove fluid dialysis. The patient is not able to have ultrafiltration with the last session of dialysis. Blood pressure remains marginal and she remains tachycardic. 4. Cardiorenal syndrome, status post coronary artery bypass grafting. 5. Recent coronary artery bypass graft surgery. Follow up with Cardiology and Cardiovascular Surgery. 6. Hyponatremia. 7. History of hypertension, currently hypotensive and off Levophed. We will continue to have dialysis as tolerated, with fluid removal if tolerated and plan to have 2 units of blood transfusion with dialysis. We will follow. Job ID: [id number]
[2020-03-22] MEDS ORDERED: Heparin 10,000 UNITS/ 10 ML VIAL ONE (12:03)
[2020-03-22] MEDS: traMADol HCl 50 MG TAB PO PRN (15:49)
--- NOTE | 2020-03-22 16:42 | PDOC.CPN ---
- Subjective Date: 03/22/20 Time: 16:40 Interval history: She is doing well. Soreness on her chest. - Review of Systems General: denies: fever/chills, weight/appetite/sleep changes, night sweats, fatigue Respiratory: denies: cough, congestion, shortness of breath, exercise intolerance Cardiovascular: denies: chest pain, palpitation, edema, paroxysmal nocturnal dyspnea, orthopnea Gastrointestinal: denies: nausea, vomiting, diarrhea, constipation, abd pain, GI bleeding Musculoskeletal: denies: pain, tenderness, stiffness, swelling, arthritis/ arthralgias Neurological: denies: numbness, syncope, seizure, weakness - Objective Allergies/Adverse Reactions: Allergies Allergy/AdvReac Type Severity Reaction Status Date / Time adhesive tape Allergy Verified 02/27/20 11:07 aspirin Allergy Verified 02/27/20 11:07 latex Allergy Verified 02/27/20 11:07 meperidine [From Demerol] Allergy Verified 02/27/20 11:07 morphine Allergy Verified 02/27/20 11:07 lace Allergy Uncoded 02/27/20 11:07 Visit Medications: Current Medications Acetaminophen (Tylenol) 650 mg PO Q6H PRN PRN Reason: Headache/Fever Or Mild Pain Last Admin: 03/22/20 02:08 Dose: 650 mg Albuterol/Ipratropium (Duoneb) 3 ml [id number] [facility] Last Admin: 03/22/20 12:42 Dose: 3 ml Alprazolam (Xanax) 0.25 mg PO TID PRN PRN Reason: Anxiety Last Admin: 03/22/20 15:50 Dose: 0.25 mg Bisacodyl (Dulcolax) 10 mg PO Q12H PRN PRN Reason: Constipation Bisacodyl (Dulcolax) 10 mg [place] Q12H PRN PRN Reason: Constipation Clopidogrel Bisulfate (Plavix) 75 mg PO DAILY [facility] Last Admin: 03/22/20 09:33 Dose: 75 mg Dextrose/Water (Dextrose 50%) 25 gm SLOW IVP PRN PRN PRN Reason: PER HYPOGLYCEMIC PROTOCOL Epoetin Solis-epbx (Retacrit) 10,000 unit IVP MoWeFr [facility] Glucagon (Glucagon) 1 mg SC PRN PRN PRN Reason: PER HYPOGLYCEMIC PROTOCOL Guaifenesin/Dextromethorphan (Robitussin Dm) 15 ml PO Q4H PRN PRN Reason: Cough Hydralazine HCl (Apresoline) 10 mg SLOW IVP Q6H PRN PRN Reason: To Maintain SBP< 140mmHG Norepinephrine Bitartrate (Levophed) 250 mls @ 0 mls/hr IVPB PRN PRN; Protocol PRN Reason: To maintain SBP > 90 mmHG Last Admin: 03/22/20 02:10 Dose: 250 mls Dextrose/Water (D5w) 1,000 mls @ 0 mls/hr IV INF PRN PRN Reason: PRN HYPOGLYCEMIC PROTOCOL Amiodarone HCl 450 mg/Miscellaneous Medication 1 each/ Dextrose/Water 259 mls @ 0 mls/hr IVPB INF CECILIA; Protocol Last Admin: 03/22/20 13:32 Dose: 259 mls Insulin Human Regular (Humulin R) 0 units SC Q4H PRN; Protocol PRN Reason: POST OP SLIDING SCALE Last Admin: 03/22/20 05:58 Dose: 4 unit Morphine Sulfate (Morphine) 2 mg SLOW IVP Q15MIN PRN PRN Reason: Severe Pain (7-10) Last Admin: 03/20/20 09:00 Dose: 2 mg Ondansetron HCl (Zofran) 4 mg IVP Q6H PRN PRN Reason: Nausea/Vomiting Last Admin: 03/19/20 21:59 Dose: 4 mg Pantoprazole Sodium (Protonix) 40 mg PO DAILY [facility] Last Admin: 03/22/20 09:34 Dose: 40 mg Pregabalin (Lyrica) 75 mg PO BID [facility] Last Admin: 03/22/20 09:34 Dose: 75 mg Sodium Chloride (Flush - Normal Saline) 10 ml IVF Q12HR CECILIA Last Admin: 03/22/20 09:39 Dose: 10 ml Sodium Chloride (Flush - Normal Saline) 10 ml IVF PRN PRN PRN Reason: Saline Flush Tramadol HCl (Ultram) 50 mg PO Q12H PRN PRN Reason: Pain Tramadol HCl (Ultram) 100 mg PO Q12H PRN PRN Reason: Pain Last Admin: 03/22/20 15:49 Dose: 100 mg Vital Signs & Weight: Vital Signs Temp Pulse Resp Pulse Ox 03/22/20 12:42 115 H 12 98 03/22/20 12:00 97.6 F 03/22/20 08:00 98.1 F 98 03/22/20 07:21 94 L 03/22/20 07:18 110 H 14 98 Admit Weight 217 lb 8 oz Weight 224 lb 6.889 oz - Physical Exam General: alert & oriented x3 HEENT: mucus membranes moist Neck: supple neck Cardiac: irregularly regular Lungs: normal breath sounds Neuro: grossly intact Abdomen: active bowel sounds Extremities: 1+ LE edema Skin: clear Musculoskeletal: no pain - Labs Result Diagrams: 03/22/20 05:19 03/22/20 05:19 Troponin/CKMB Troponin I 0.065 ng/mL (< 0.028) H 03/12/20 10:01 - Telemetry Supraventricular conduction: atrial fibrillation - Assessment/Plan Assessment/Plan: 1. Worsening dilated CM 2. Ischemic CM EF at 28% 3. CAD 4. ESRD 5. Bed bugs 2 months ago, treated at home per her report. 6. In stent re stenosis recurrent to LAD and severe RCA disease. 7. Post op afib. 8. S/P CABG. PLAN: - ASA/Statin, BB, ACEI - HD per nephrology - Continue amiodarone drip. - PT as tolerated.
--- NOTE | 2020-03-22 17:31 | PRG ---
DATE OF SERVICE: 03/22/2020 SUBJECTIVE: The patient is still breathing well after being extubated two days ago. OBJECTIVE: VITAL SIGNS: On exam, temperature 97.7, pulse 107, blood pressure 122/55, O2 saturation 99%. 24-hour intake 4380, output 450. HEENT: Unremarkable. NECK: No JVD. LUNGS: Fairly clear anteriorly. CARDIAC: S1 and S2. Regular to tachycardic. ABDOMEN: Soft and nontender. EXTREMITIES: Trace edema. LABORATORY DATA: White blood cell count 6.6, hematocrit 21.9, and platelet count 165. Sodium 134, potassium 4.4, chloride 100, CO2 of 24, BUN 34, creatinine 2.9, and glucose 150. ASSESSMENT: 1. Status post coronary artery bypass grafting surgery. 2. Status post respiratory failure, requiring mechanical ventilation. 3. Anxiety. PLAN: 1. Lyrica and Xanax restarted yesterday. 2. May need blood-we will defer to the CV surgery team for that. 3. Intermittent dialysis as needed. 4. Hopefully transferred to floor soon. Job ID: [id number]
--- NOTE | 2020-03-22 19:21 | PDOC.HOSPP ---
- Subjective Encounter Date: 03/22/20 Encounter Time: 08:45 Subjective: Patient seen and examined for coronary artery disease/CHF. Complains of chronic low back pain. No chest pain, palpitations or syncope. No overnight events. - Objective Vital Signs & Weight: Vital Signs (12 hours) Temp Pulse Resp Pulse Ox 03/22/20 16:00 97.4 F L 03/22/20 12:42 115 H 12 98 03/22/20 12:00 97.6 F 03/22/20 08:00 98.1 F 98 Weight Admit Weight 217 lb 8 oz Weight 224 lb 6.889 oz Most Recent Monitor Data Heart Rate from ECG 109 NIBP 128/87 NIBP BP-Mean 100 Respiration from ECG 13 SpO2 96 I&O: 03/21/20 03/22/20 03/23/20 06:59 06:59 06:59 Intake Total 1710 2380.5 1065 Output Total 545 450 Balance 1165 1930.5 1065 Result Diagrams: 03/22/20 05:19 03/22/20 05:19 Additional Labs: Accuchecks 03/22/20 03/22/20 03/21/20 11:26 05:26 21:53 POC Glucose 140 H 166 H 182 H Radiology Reviewed by me: Yes (Chest x-rayno significant change) EKG Reviewed by me: Yes (Atrial fibrillation on telemetry) Hospitalist ROS - Review of Systems Cardiovascular: denies: chest pain, palpitations, orthopnea, paroxysmal noc. dyspnea, edema, light headedness, other Gastrointestinal: denies: nausea, vomiting, abdominal pain, diarrhea, constipation, melena, hematochezia, other - Medication Medications: Active Medications Generic Name Dose Route Start Last Admin Trade Name Freq PRN Reason Stop Dose Admin Acetaminophen 650 mg 03/19/20 15:14 03/22/20 02:08 Tylenol PO 650 mg Q6H PRN Administration Headache/Fever Or Mild Pain Albuterol/Ipratropium 3 ml 03/22/20 07:00 03/22/20 12:42 Duoneb EZPAP 3 ml [id number] CECILIA Administration Alprazolam 0.25 mg 03/21/20 07:39 03/22/20 15:50 Xanax PO 0.25 mg TID PRN Administration Anxiety Clopidogrel Bisulfate 75 mg 03/21/20 09:00 03/22/20 09:33 Plavix PO 75 mg DAILY CECILIA Administration Norepinephrine Bitartrate 250 mls @ 0 mls/hr 03/19/20 15:14 03/22/20 02:10 Levophed IVPB 250 mls PRN PRN Administration To maintain SBP > 90 mmHG Protocol Titrate Amiodarone HCl 450 mg/ 259 mls @ 0 mls/hr 03/21/20 13:30 03/22/20 13:32 Miscellaneous Medication 1 IVPB 259 mls each/ Dextrose/Water INF CECILIA Administration Protocol As Directed Insulin Human Regular 0 units 03/19/20 15:24 03/22/20 05:58 Humulin R SC 4 unit Q4H PRN Administration POST OP SLIDING SCALE Protocol Morphine Sulfate 2 mg 03/19/20 15:14 03/20/20 09:00 Morphine SLOW IVP 2 mg Q15MIN PRN Administration Severe Pain (7-10) Ondansetron HCl 4 mg 03/19/20 15:14 03/19/20 21:59 Zofran IVP 4 mg Q6H PRN Administration Nausea/Vomiting Pantoprazole Sodium 40 mg 03/22/20 09:00 03/22/20 09:34 Protonix PO 40 mg DAILY CECILIA Administration Pregabalin 75 mg 03/21/20 09:00 03/22/20 09:34 Lyrica PO 75 mg BID CECILIA Administration Sodium Chloride 10 ml 03/21/20 09:00 03/22/20 09:39 Flush - Normal Saline IVF 10 ml Q12HR CECILIA Administration Tramadol HCl 100 mg 03/19/20 15:14 03/22/20 15:49 Ultram PO 100 mg Q12H PRN Administration Pain - Exam General Appearance: NAD (At rest) Neck: supple, no JVD Heart: RRR, no gallops, no rubs Respiratory: no wheezes, rhonchi Gastrointestinal: soft, no guarding, no rigidity Extremities: no cyanosis Neurological: no new deficit Psychiatric: normal affect, A&O x 3 Hosp A/P (1) Chest pain Code(s): R07.9 - CHEST PAIN, UNSPECIFIED Status: Acute Qualifiers: Ischemic chest pain type: unspecified angina pectoris type (2) Atrial fibrillation with rapid ventricular response Code(s): I48.91 - UNSPECIFIED ATRIAL FIBRILLATION Status: Acute (3) CAD (coronary artery disease) Code(s): I25.10 - ATHSCL HEART DISEASE OF [place] CORONARY ARTERY W/O ANG PCTRS Status: Chronic (4) S/P CABG (coronary artery bypass graft) Code(s): Z95.1 - PRESENCE OF AORTOCORONARY BYPASS GRAFT Status: Acute (5) Chronic combined systolic and diastolic congestive heart failure Code(s): I50.42 - CHRONIC COMBINED SYSTOLIC AND DIASTOLIC HRT FAIL (6) COPD (chronic obstructive pulmonary disease) Status: Chronic (7) DM type 2 (diabetes mellitus, type 2) Status: Chronic Qualifiers: Diabetes mellitus software clerk insulin use: with software clerk use Diabetes mellitus complication status: with kidney complications Diabetes mellitus complication detail: with chronic kidney disease Chronic kidney disease stage: stage 3 (moderate) Qualified Code(s): E11.22 - Type 2 diabetes mellitus with diabetic chronic kidney disease; N18.3 - Chronic kidney disease, stage 3 (moderate); 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.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 technician (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 of insulin (8) ESRD (end stage renal disease) on dialysis Code(s): N18.6 - END STAGE RENAL DISEASE; Z99.2 - DEPENDENCE ON RENAL DIALYSIS Status: Chronic (9) Urinary retention Code(s): R33.9 - RETENTION OF URINE, UNSPECIFIED Status: Acute (10) HLD (hyperlipidemia) Code(s): E78.5 - HYPERLIPIDEMIA, UNSPECIFIED Status: Chronic (11) HTN (hypertension) Code(s): I10 - ESSENTIAL (PRIMARY) HYPERTENSION Status: Chronic (12) Hypothyroidism Code(s): E03.9 - HYPOTHYROIDISM, UNSPECIFIED Status: Chronic (13) Ischemic cardiomyopathy Code(s): I25.5 - ISCHEMIC CARDIOMYOPATHY Status: Chronic (14) Obesity (BMI 30.0-34.9) Code(s): E66.9 - OBESITY, UNSPECIFIED Status: Chronic - Plan DVT proph w/SCDs 03/22 Patient currently on amiodarone drip for atrial fibrillation. Continue Plavix. Continue nebulizer treatment. Continue Lyrica for neuropathic pain. Prn morphine. Blood transfusion today. Recheck labs in a.m. Patient received 1 dose of digoxin yesterday a.m. labs 03/21 Continue postoperative care. On low-dose Levophed. Plavix and Lyrica started earlier today. Pain control. Continue Howard catheter. Continue Accu-Cheks. Recheck labs in a.m. Chest x-ray in a.m. physical therapy consulted 03/20 Continue postoperative care in critical care unit. Continue with insulin drip. Continue Plavix. Pain control. Continue other medications as above. A.m. labs.
[2020-03-22] MEDS: EPOETIN ALFA-EPBX (ESRD) 10,000 UNIT/ML VIAL IVP SCH (20:25)
--- NOTE | 2020-03-22 22:21 | PRG ---
DATE OF SERVICE: 03/22/2020 Ms. Mendez had a coronary artery bypass graft today. She is doing well. She is in the ICU. She had a right arm basilic vein transposition fistula that was performed on 03/02/2020, three weeks ago. The upper arm wound is well healed. There are no wound problems. She has good thrill and bruit over her fistula. At this point, I would recommend removal of the esa by applying Mastisol and half-inch Steri-Strips. She should return to see me in 2 to 3 weeks. They can probably begin using the fistula in the next 2 to 3 weeks. Job ID: [id number]
[2020-03-23 04:37] LABS: #Basophils 0.1 thou/uL (0.0-0.2); #Eosinphils 0.1 thou/uL (0.0-0.7); #Lymphocytes 1.4 thou/uL (1.20-3.40); #Monocytes 0.8 thou/uL (0.11-0.59); #Neutrophils 4.3 thou/uL (1.40-6.50); %Basophils 0.9 % (0.0-1.0); %Eosinophils 1.3 % (0.0-10.0); %Lymphocytes 20.7 % (21.0-51.0); %Monocytes 12.3 % (0.0-10.0); %Neutrophils 64.8 % (42.0-75.0); Hemoglobin 7.9 g/dL (12.0-16.0); Mean Corpuscular HGB CONC 33.5 g/dL (32.0-36.0); Mean Corpuscular Hemoglobin 30.7 pg (27.0-31.0); Mean Corpuscular Volume 91.6 fL (78.0-98.0); Platelet Count 167 thou/uL (130-400); RBC Distribution Width 13.9 % (11.5-14.5); Red Blood Cell (RBC) Count 2.56 mill/uL (4.20-5.40); White Blood Cell (WBC) Count 6.6 thou/uL (4.8-10.8)
[2020-03-23 05:02] LABS: Anion Gap 15 mmol/L (10-20); BUN (Urea Nitrogen) 28 mg/dL (9.8-20.1); Calc. Creatinine Clearance 35 mL/min (70-130); Calcium 8.4 mg/dL (7.8-10.44); Carbon Dioxide 24 mmol/L (23-31); Chloride 99 mmol/L (98-107); Estimated GFR-MDRD 18; Glucose 174 mg/dL (80-115); Sodium 134 mmol/L (136-145)
--- NOTE | 2020-03-23 07:43 | PRG ---
DATE OF SERVICE: 03/23/2020 SUBJETIVE: She remains in the CCU. She says she feels a little better today, but had a bad day yesterday. OBJECTIVE: VITAL SIGNS: Temperature 97.8, pulse 101, blood pressure 142/109, O2 saturation 100%. Twenty-four hour intake 1651, output . HEENT: Unremarkable. NECK: No JVD. LUNGS: Diminished breath sounds in the bases. CARDIAC: S1, S2. Regular. ABDOMEN: Soft and nontender. EXTREMITIES: No edema. LABORATORY DATA: White count 6.6, hemoglobin 7.9, hematocrit 23.5, and platelet count 167. Sodium 134, potassium 4, chloride 99, CO2 of 24, BUN 28, creatinine 2.6, glucose 174. ASSESSMENT: 1. Status post coronary artery bypass graft surgery. 2. Status post respiratory failure requiring mechanical ventilation. 3. Anemia. PLAN: 1. Up in chair as tolerated. 2. Continue nebs with EzPAP. 3. Hopefully to floor soon. Job ID: [id number]
[2020-03-23] MEDS: Amiodarone 450 MG, Admixture Fee 1 EACH in Dextrose 5% in Water 250 ML IVPB SCH ×2 (08:20→22:16)
[2020-03-23] MEDS: ALPRAZolam 0.25 MG TAB PO PRN ×3 (08:23→22:16)
[2020-03-23] MEDS: Pregabalin 75 MG CAP PO SCH ×2 (08:23→22:11)
[2020-03-23] MEDS: Clopidogrel Bisulfate 75 MG TAB PO SCH (08:24)
[2020-03-23] MEDS: Insulin Regular 300 UNITS/3 ML VIAL SC PRN ×3 (08:27→22:12)
[2020-03-23 11:01] LABS: Neutrophil 74 % (42-75)
--- NOTE | 2020-03-23 13:38 | PRG ---
DATE OF SERVICE: 03/23/2020 SUBJECTIVE: Patient was seen and examined at bedside and overnight events noted. Patient denies any shortness of breath or chest pain or palpitation. No history of nausea or vomiting or diarrhea or fever or chills or cramps. OBJECTIVE: GENERAL: This is well built female in no apparent distress. VITAL SIGNS: Temperature 98.9. Pulse 96. Respiratory rate 18. Blood pressure 131/87. HEENT: Atraumatic, normocephalic. Oral mucosa is moist. NECK: Supple. CARDIOVASCULAR: S1, S2 heard. Rate and rhythm regular. RESPIRATORY: Clear to auscultation. GASTROINTESTINAL: Abdomen is soft. MUSCULOSKELETAL: No tenderness. No edema. DERMATOLOGIC: No skin rash. NEUROLOGIC: Alert and awake and oriented x3. No focal neurologic deficits. Moving all the extremities. PSYCHIATRIC: Mood and affect normal. LABORATORY DATA: Potassium 4.0, BUN is 28, and creatinine is 2.7. ASSESSMENT AND PLAN: 1. End-stage renal disease. Continue dialysis as tolerated. 2. Cardiorenal syndrome, status post CABG. 3. Recent CABG surgery. 4. Edema. 5. Anemia. 6. Hyponatremia. 7. History of hypertension. 8. We will continue on dialysis as tolerated. Job ID: [id number]
[2020-03-23] MEDS: Acetaminophen 325 MG TAB PO PRN (15:39)
--- NOTE | 2020-03-23 17:31 | PDOC.CPN ---
- Subjective Date: 03/23/20 Time: 17:29 Interval history: No new issues. She is doing better. Walking with PT around her room. Passing gas. - Review of Systems General: reports: fatigue. denies: fever/chills, weight/appetite/sleep changes , night sweats Respiratory: reports: exercise intolerance. denies: cough, congestion, shortness of breath Cardiovascular: reports: edema. denies: chest pain, palpitation, paroxysmal nocturnal dyspnea, orthopnea Gastrointestinal: denies: nausea, vomiting, diarrhea, constipation, abd pain, GI bleeding Musculoskeletal: denies: pain, tenderness, stiffness, swelling, arthritis/ arthralgias Neurological: denies: numbness, syncope, seizure, weakness - Objective Allergies/Adverse Reactions: Allergies Allergy/AdvReac Type Severity Reaction Status Date / Time adhesive tape Allergy Verified 02/27/20 11:07 aspirin Allergy Verified 02/27/20 11:07 latex Allergy Verified 02/27/20 11:07 meperidine [From Demerol] Allergy Verified 02/27/20 11:07 morphine Allergy Verified 02/27/20 11:07 lace Allergy Uncoded 02/27/20 11:07 Visit Medications: Current Medications Acetaminophen (Tylenol) 650 mg PO Q6H PRN PRN Reason: Headache/Fever Or Mild Pain Last Admin: 03/23/20 15:39 Dose: 650 mg Albuterol/Ipratropium (Duoneb) 3 ml EZPAP [id number] [facility] Last Admin: 03/23/20 14:02 Dose: 3 ml Alprazolam (Xanax) 0.25 mg PO TID PRN PRN Reason: Anxiety Last Admin: 03/23/20 15:39 Dose: 0.25 mg Atorvastatin Calcium (Lipitor) 40 mg PO HS [facility] Bisacodyl (Dulcolax) 10 mg PO Q12H PRN PRN Reason: Constipation Bisacodyl (Dulcolax) 10 mg [place] Q12H PRN PRN Reason: Constipation Clopidogrel Bisulfate (Plavix) 75 mg PO DAILY [facility] Last Admin: 03/23/20 08:24 Dose: 75 mg Dextrose/Water (Dextrose 50%) 25 gm SLOW IVP PRN PRN PRN Reason: PER HYPOGLYCEMIC PROTOCOL Epoetin Solis-epbx (Retacrit) 10,000 unit IVP MoWeFr [facility] Last Admin: 03/22/20 20:25 Dose: 10,000 unit Glucagon (Glucagon) 1 mg SC PRN PRN PRN Reason: PER HYPOGLYCEMIC PROTOCOL Guaifenesin/Dextromethorphan (Robitussin Dm) 15 ml PO Q4H PRN PRN Reason: Cough Hydralazine HCl (Apresoline) 10 mg SLOW IVP Q6H PRN PRN Reason: To Maintain SBP< 140mmHG Norepinephrine Bitartrate (Levophed) 250 mls @ 0 mls/hr IVPB PRN PRN; Protocol PRN Reason: To maintain SBP > 90 mmHG Last Admin: 03/22/20 02:10 Dose: 250 mls Dextrose/Water (D5w) 1,000 mls @ 0 mls/hr IV INF PRN PRN Reason: PRN HYPOGLYCEMIC PROTOCOL Amiodarone HCl 450 mg/Miscellaneous Medication 1 each/ Dextrose/Water 259 mls @ 0 mls/hr IVPB INF [facility]; Protocol Last Admin: 03/23/20 08:20 Dose: 259 mls Insulin Human Regular (Humulin R) 0 units SC Q4H PRN; Protocol PRN Reason: POST OP SLIDING SCALE Last Admin: 03/23/20 15:35 Dose: 4 unit Morphine Sulfate (Morphine) 2 mg SLOW IVP Q15MIN PRN PRN Reason: Severe Pain (7-10) Last Admin: 03/20/20 09:00 Dose: 2 mg Ondansetron HCl (Zofran) 4 mg IVP Q6H PRN PRN Reason: Nausea/Vomiting Last Admin: 03/19/20 21:59 Dose: 4 mg Pantoprazole Sodium (Protonix) 40 mg PO DAILY [facility] Last Admin: 03/23/20 08:24 Dose: 40 mg Pregabalin (Lyrica) 75 mg PO BID [facility] Last Admin: 03/23/20 08:23 Dose: 75 mg Sodium Chloride (Flush - Normal Saline) 10 ml IVF Q12HR [facility] Last Admin: 03/23/20 08:30 Dose: 10 ml Sodium Chloride (Flush - Normal Saline) 10 ml IVF PRN PRN PRN Reason: Saline Flush Tramadol HCl (Ultram) 50 mg PO Q12H PRN PRN Reason: Pain Tramadol HCl (Ultram) 100 mg PO Q12H PRN PRN Reason: Pain Last Admin: 03/22/20 15:49 Dose: 100 mg Vital Signs & Weight: Vital Signs Temp Pulse Pulse Pulse Resp BP BP 03/23/20 16:00 99.0 F 03/23/20 14:02 107 H 18 03/23/20 12:00 98.8 F 03/23/20 11:20 96 103 H 105/73 131/87 03/23/20 08:00 98.9 F 03/23/20 07:17 96 17 Pulse Ox Pulse Ox 03/23/20 16:00 03/23/20 14:02 95 03/23/20 12:00 03/23/20 11:20 98 03/23/20 08:00 98 03/23/20 07:17 99 Admit Weight 217 lb 8 oz Weight 224 lb 6.889 oz - Physical Exam General: alert & oriented x3 HEENT: mucus membranes moist Neck: supple neck Cardiac: no murmur Lungs: normal breath sounds Neuro: grossly intact Abdomen: active bowel sounds Extremities: 1+ LE edema Skin: clear Musculoskeletal: no pain - Labs Result Diagrams: 03/23/20 04:09 03/23/20 04:09 Troponin/CKMB Troponin I 0.065 ng/mL (< 0.028) H 03/12/20 10:01 - Telemetry Supraventricular conduction: atrial fibrillation - Assessment/Plan Assessment/Plan: 1. Worsening dilated CM 2. Ischemic CM EF at 28% 3. CAD 4. ESRD 5. Bed bugs 2 months ago, treated at home per her report. 6. In stent re stenosis recurrent to LAD and severe RCA disease. 7. Post op afib. 8. S/P CABG. PLAN: - ASA/Statin, BB, ACEI - HD per nephrology - Continue amiodarone drip until converts to sinus. - Increase PT as tolerated.
[2020-03-23] MEDS: Atorvastatin Calcium 40 MG TAB PO SCH (22:11)
--- NOTE | 2020-03-23 23:13 | PDOC.HOSPP ---
- Subjective Encounter Date: 03/23/20 Encounter Time: 11:30 Subjective: Patient seen and examined for chest pain/CHF. Sitting on the chair. Pain controlled. Denies any chest pain. - Objective Vital Signs & Weight: Vital Signs (12 hours) Temp Pulse Pulse Pulse Resp BP BP 03/23/20 20:00 97.5 F L 03/23/20 18:23 106 H 14 03/23/20 16:00 99.0 F 03/23/20 14:02 107 H 18 03/23/20 12:00 98.8 F 03/23/20 11:20 96 103 H 105/73 131/87 Pulse Ox Pulse Ox 03/23/20 20:00 97 03/23/20 18:23 95 03/23/20 16:00 03/23/20 14:02 95 03/23/20 12:00 03/23/20 11:20 98 Weight Admit Weight 217 lb 8 oz Weight 224 lb 6.889 oz Most Recent Monitor Data Heart Rate from ECG 108 NIBP 139/89 NIBP BP-Mean 105 Respiration from ECG 17 SpO2 100 I&O: 03/22/20 03/23/20 03/24/20 06:59 06:59 06:59 Intake Total 2380.5 1651 600 Output Total 450 175 120 Balance 1930.5 1476 480 Result Diagrams: 03/23/20 04:09 03/23/20 04:09 Additional Labs: Accuchecks 03/23/20 03/23/20 03/23/20 22:16 15:39 11:30 POC Glucose 193 H 177 H 187 H EKG Reviewed by me: Yes (Atrial fibrillation on telemetry) Hospitalist ROS - Review of Systems Respiratory: reports: SOB with excertion. denies: cough, dry, shortness of breath, hemoptysis, pleuritic pain, sputum, wheezing, other Cardiovascular: denies: chest pain, palpitations, orthopnea, paroxysmal noc. dyspnea, edema, light headedness, other - Medication Medications: Active Medications Generic Name Dose Route Start Last Admin Trade Name Freq PRN Reason Stop Dose Admin Acetaminophen 650 mg 03/19/20 15:14 03/23/20 15:39 Tylenol PO 650 mg Q6H PRN Administration Headache/Fever Or Mild Pain Albuterol/Ipratropium 3 ml 03/22/20 07:00 03/23/20 18:23 Duoneb EZPAP 3 ml [id number] CECILIA Administration Alprazolam 0.25 mg 03/21/20 07:39 03/23/20 22:16 Xanax PO 0.25 mg TID PRN Administration Anxiety Atorvastatin Calcium 40 mg 03/23/20 21:00 03/23/20 22:11 Lipitor PO 40 mg HS CECILIA Administration Clopidogrel Bisulfate 75 mg 03/21/20 09:00 03/23/20 08:24 Plavix PO 75 mg DAILY CECILIA Administration Epoetin Solis-epbx 10,000 unit 03/22/20 11:00 03/22/20 20:25 Retacrit IVP 10,000 unit MoWeFr CECILIA Administration Norepinephrine Bitartrate 250 mls @ 0 mls/hr 03/19/20 15:14 03/22/20 02:10 Levophed IVPB 250 mls PRN PRN Administration To maintain SBP > 90 mmHG Protocol Titrate Amiodarone HCl 450 mg/ 259 mls @ 0 mls/hr 03/21/20 13:30 03/23/20 22:16 Miscellaneous Medication 1 IVPB 259 mls each/ Dextrose/Water INF CECILIA Administration Protocol As Directed Insulin Human Regular 0 units 03/19/20 15:24 03/23/20 22:12 Humulin R SC 4 unit Q4H PRN Administration POST OP SLIDING SCALE Protocol Morphine Sulfate 2 mg 03/19/20 15:14 03/20/20 09:00 Morphine SLOW IVP 2 mg Q15MIN PRN Administration Severe Pain (7-10) Ondansetron HCl 4 mg 03/19/20 15:14 03/19/20 21:59 Zofran IVP 4 mg Q6H PRN Administration Nausea/Vomiting Pantoprazole Sodium 40 mg 03/22/20 09:00 03/23/20 08:24 Protonix PO 40 mg DAILY CECILIA Administration Pregabalin 75 mg 03/21/20 09:00 03/23/20 22:11 Lyrica PO 75 mg BID CECILIA Administration Sodium Chloride 10 ml 03/21/20 09:00 03/23/20 22:12 Flush - Normal Saline IVF 10 ml Q12HR CECILIA Administration Tramadol HCl 100 mg 03/19/20 15:14 03/22/20 15:49 Ultram PO 100 mg Q12H PRN Administration Pain - Exam General Appearance: ill appearing Neck: supple, no JVD Heart: RRR, no gallops Respiratory: no rales, rhonchi Gastrointestinal: soft, non-tender, no guarding, no rigidity Psychiatric: normal affect, A&O x 3 Hosp A/P (1) Chest pain Code(s): R07.9 - CHEST PAIN, UNSPECIFIED Status: Acute Qualifiers: Ischemic chest pain type: unspecified angina pectoris type (2) Atrial fibrillation with rapid ventricular response Code(s): I48.91 - UNSPECIFIED ATRIAL FIBRILLATION Status: Acute (3) CAD (coronary artery disease) Code(s): I25.10 - ATHSCL HEART DISEASE OF [place] CORONARY ARTERY W/O ANG PCTRS Status: Chronic (4) S/P CABG (coronary artery bypass graft) Code(s): Z95.1 - PRESENCE OF AORTOCORONARY BYPASS GRAFT Status: Acute (5) Chronic combined systolic and diastolic congestive heart failure Code(s): I50.42 - CHRONIC COMBINED SYSTOLIC AND DIASTOLIC HRT FAIL (6) COPD (chronic obstructive pulmonary disease) Status: Chronic (7) DM type 2 (diabetes mellitus, type 2) Status: Chronic Qualifiers: 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 use: with [facility] use Diabetes mellitus complication status: with kidney complications Diabetes mellitus complication detail: with chronic kidney disease Chronic kidney disease stage: stage 3 (moderate) Qualified Code(s): E11.22 - Type 2 diabetes mellitus with diabetic chronic kidney disease; N18.3 - Chronic kidney disease, stage 3 (moderate); 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 (8) ESRD (end stage renal disease) on dialysis Code(s): N18.6 - END STAGE RENAL DISEASE; Z99.2 - DEPENDENCE ON RENAL DIALYSIS Status: Chronic (9) Urinary retention Code(s): R33.9 - RETENTION OF URINE, UNSPECIFIED Status: Acute (10) HLD (hyperlipidemia) Code(s): E78.5 - HYPERLIPIDEMIA, UNSPECIFIED Status: Chronic (11) HTN (hypertension) Code(s): I10 - ESSENTIAL (PRIMARY) HYPERTENSION Status: Chronic (12) Hypothyroidism Code(s): E03.9 - HYPOTHYROIDISM, UNSPECIFIED Status: Chronic (13) Ischemic cardiomyopathy Code(s): I25.5 - ISCHEMIC CARDIOMYOPATHY Status: Chronic (14) Obesity (BMI 30.0-34.9) Code(s): E66.9 - OBESITY, UNSPECIFIED Status: Chronic - Plan 03/23 Remains on amiodarone drip. Continue Critical Care Unit monitoring. Received 2 units of PRBC yesterday. A.m. labs. Continue other medications as above. Continue physical therapy. Continue Plavix. 03/22 Patient currently on amiodarone drip for atrial fibrillation. Continue Plavix. Continue nebulizer treatment. Continue Lyrica for neuropathic pain. Prn morphine. Blood transfusion today. Recheck labs in a.m. Patient received 1 dose of digoxin yesterday a.m. labs 03/21 Continue postoperative care. On low-dose Levophed. Plavix and Lyrica started earlier today. Pain control. Continue Howard catheter. Continue Accu-Cheks. Recheck labs in a.m. Chest x-ray in a.m. Physical therapy consulted 03/20 Continue postoperative care in critical care unit. Continue with insulin drip. Continue Plavix. Pain control. Continue other medications as above. A.m. labs.
--- NOTE | 2020-03-24 07:54 | PRG ---
DATE OF SERVICE: 03/24/2020 SUBJECTIVE: She is awake, alert, and in good spirits. OBJECTIVE: VITAL SIGNS: Temperature 97.7, pulse 107, blood pressure 96/69, and O2 saturation 100% on nasal cannula. HEENT: Unremarkable. NECK: No adenopathy or JVD. LUNGS: Clear anteriorly, but diminished breath sounds in the bases. ABDOMEN: Soft and nontender. EXTREMITIES: No edema. LABORATORY DATA: White blood cell count 3.1, hematocrit 29.2, and platelet count 182. ASSESSMENT: 1. Status post coronary artery bypass grafting surgery. 2. Chronic renal failure, requiring hemodialysis. 3. Atrial fibrillation, requiring amiodarone. PLAN: Continue supportive care in ICU until the CV Surgery feels she is strong enough to transfer to the floor. Continue pulmonary toilet measures. Job ID: [id number]
[2020-03-24] MEDS: Pregabalin 75 MG CAP PO SCH ×2 (09:59→21:17)
[2020-03-24] MEDS: Clopidogrel Bisulfate 75 MG TAB PO SCH (10:01)
[2020-03-24] MEDS: ALPRAZolam 0.25 MG TAB PO PRN ×2 (10:02→21:18)
[2020-03-24] MEDS ORDERED: Heparin 10,000 UNITS/ 10 ML VIAL ONE (10:02)
[2020-03-24 10:23] LABS: Hemoglobin 9.3 g/dL (12.0-16.0); Red Blood Cell (RBC) Count 3.15 mill/uL (4.20-5.40); White Blood Cell (WBC) Count 5.2 thou/uL (4.8-10.8)
[2020-03-24 10:24] LABS: #Neutrophils 3.3 thou/uL (1.40-6.50); %Eosinophils 3.8 % (0.0-10.0); %Lymphocytes 19.2 % (21.0-51.0); %Monocytes 11.9 % (0.0-10.0); %Neutrophils 64.2 % (42.0-75.0); Mean Corpuscular Hemoglobin 29.6 pg (27.0-31.0); Mean Corpuscular Volume 92.4 fL (78.0-98.0); Platelet Count 182 thou/uL (130-400); RBC Distribution Width 13.8 % (11.5-14.5)
[2020-03-24 10:25] LABS: #Basophils 0.1 thou/uL (0.0-0.2); #Eosinphils 0.2 thou/uL (0.0-0.7); #Monocytes 0.6 thou/uL (0.11-0.59)
[2020-03-24] MEDS: EPOETIN ALFA-EPBX (ESRD) 10,000 UNIT/ML VIAL IVP SCH ×2 (11:50→12:26)
--- NOTE | 2020-03-24 11:56 | PRG ---
DATE OF SERVICE: 03/24/2020 SUBJECTIVE: This is a well-built female, in no apparent distress. OBJECTIVE: VITAL SIGNS: Temperature 97.7, pulse 105, respirations blood pressure 97/60. Musculoskeletal : No tenderness, No edema HEENT: Atraumatic normocephalic Neck: Supple Cardiovascular: S1S2 heard, Rate and rhythm regular Respiratory: Clear to auscultation Gastrointestinal: Abdomen is soft Dermatologic : No skin rash Neurologic: Alert and awake and oriented X3 No focal neurologic deficits. Moving all the extremities. Psychiatric: Mood and affect normal LABORATORY DATA: Potassium 4.0, BUN is 28, creatinine is 2.6. ASSESSMENT AND PLAN: 1. End-stage renal disease. Plan to have dialysis. 2. Edema. 3. Cardiorenal syndrome with recent coronary artery bypass graft. 4. History of hypertension. 5. Hyponatremia. PLAN: 1. To attempt dialysis today. 2. We will plan for 3 hours with 300 and 500 flow rates and we will follow. Job ID: [id number] MTDD
[2020-03-24] MEDS: Amiodarone 450 MG, Admixture Fee 1 EACH in Dextrose 5% in Water 250 ML IVPB SCH (12:09)
[2020-03-24] MEDS: Insulin Regular 300 UNITS/3 ML VIAL SC PRN ×3 (12:22→21:18)
--- NOTE | 2020-03-24 15:48 | PDOC.CPN ---
- Subjective Date: 03/24/20 Time: 15:46 Interval history: No new issues. Not moving too much. Worked with PT but only on the bed. Did not get up. Encouraged to do a lot more PT and she states she will tdo hger best to be more active. - Review of Systems General: denies: fever/chills, weight/appetite/sleep changes, night sweats, fatigue Respiratory: denies: cough, congestion, shortness of breath, exercise intolerance Cardiovascular: denies: chest pain, palpitation, edema, paroxysmal nocturnal dyspnea, orthopnea Gastrointestinal: denies: nausea, vomiting, diarrhea, constipation, abd pain, GI bleeding Musculoskeletal: reports: pain. denies: tenderness, stiffness, swelling, arthritis/arthralgias Neurological: denies: numbness, syncope, seizure, weakness - Objective Allergies/Adverse Reactions: Allergies Allergy/AdvReac Type Severity Reaction Status Date / Time adhesive tape Allergy Verified 02/27/20 11:07 aspirin Allergy Verified 02/27/20 11:07 latex Allergy Verified 02/27/20 11:07 meperidine [From Demerol] Allergy Verified 02/27/20 11:07 morphine Allergy Verified 02/27/20 11:07 lace Allergy Uncoded 02/27/20 11:07 Visit Medications: Current Medications Acetaminophen (Tylenol) 650 mg PO Q6H PRN PRN Reason: Headache/Fever Or Mild Pain Last Admin: 03/23/20 15:39 Dose: 650 mg Documented by: Albuterol/Ipratropium (Duoneb) 3 ml EZPAP [id number] [facility] Last Admin: 03/24/20 14:25 Dose: 3 ml Documented by: Alprazolam (Xanax) 0.25 mg PO TID PRN PRN Reason: Anxiety Last Admin: 03/24/20 10:02 Dose: 0.25 mg Documented by: Atorvastatin Calcium (Lipitor) 40 mg PO HS [facility] Last Admin: 03/23/20 22:11 Dose: 40 mg Documented by: Bisacodyl (Dulcolax) 10 mg PO Q12H PRN PRN Reason: Constipation Bisacodyl (Dulcolax) 10 mg [place] Q12H PRN PRN Reason: Constipation Clopidogrel Bisulfate (Plavix) 75 mg PO DAILY [facility] Last Admin: 03/24/20 10:01 Dose: 75 mg Documented by: Dextrose/Water (Dextrose 50%) 25 gm SLOW IVP PRN PRN PRN Reason: PER HYPOGLYCEMIC PROTOCOL Epoetin Solis-epbx (Retacrit) 10,000 unit IVP MoWeFr [facility] Last Admin: 03/24/20 12:26 Dose: 10,000 unit Documented by: Glucagon (Glucagon) 1 mg SC PRN PRN PRN Reason: PER HYPOGLYCEMIC PROTOCOL Guaifenesin/Dextromethorphan (Robitussin Dm) 15 ml PO Q4H PRN PRN Reason: Cough Hydralazine HCl (Apresoline) 10 mg SLOW IVP Q6H PRN PRN Reason: To Maintain SBP< 140mmHG Norepinephrine Bitartrate (Levophed) 250 mls @ 0 mls/hr IVPB PRN PRN; Protocol PRN Reason: To maintain SBP > 90 mmHG Last Admin: 03/22/20 02:10 Dose: 250 mls Documented by: Dextrose/Water (D5w) 1,000 mls @ 0 mls/hr IV INF PRN PRN Reason: PRN HYPOGLYCEMIC PROTOCOL Amiodarone HCl 450 mg/Miscellaneous Medication 1 each/ Dextrose/Water 259 mls @ 0 mls/hr IVPB INF [facility]; Protocol Last Admin: 03/24/20 12:09 Dose: 259 mls Documented by: Insulin Human Regular (Humulin R) 0 units SC Q4H PRN; Protocol PRN Reason: POST OP SLIDING SCALE Last Admin: 03/24/20 12:22 Dose: 6 unit Documented by: Morphine Sulfate (Morphine) 2 mg SLOW IVP Q15MIN PRN PRN Reason: Severe Pain (7-10) Last Admin: 03/20/20 09:00 Dose: 2 mg Documented by: Ondansetron HCl (Zofran) 4 mg IVP Q6H PRN PRN Reason: Nausea/Vomiting Last Admin: 03/19/20 21:59 Dose: 4 mg Documented by: Pantoprazole Sodium (Protonix) 40 mg PO DAILY [facility] Last Admin: 03/24/20 10:02 Dose: 40 mg Documented by: Pregabalin (Lyrica) 75 mg PO BID [facility] Last Admin: 03/24/20 09:59 Dose: 75 mg Documented by: Sodium Chloride (Flush - Normal Saline) 10 ml IVF Q12HR [facility] Last Admin: 03/24/20 10:02 Dose: 10 ml Documented by: Sodium Chloride (Flush - Normal Saline) 10 ml IVF PRN PRN PRN Reason: Saline Flush Tramadol HCl (Ultram) 50 mg PO Q12H PRN PRN Reason: Pain Tramadol HCl (Ultram) 100 mg PO Q12H PRN PRN Reason: Pain Last Admin: 03/22/20 15:49 Dose: 100 mg Documented by: Vital Signs & Weight: Vital Signs Temp Pulse Pulse Pulse Pulse Resp BP 03/24/20 14:25 98 13 03/24/20 14:02 91 82 03/24/20 11:14 68 106 H 84/61 L 03/24/20 08:00 97.7 F 03/24/20 07:00 105 H 16 BP BP Pulse Ox Pulse Ox Pulse Ox Pulse Ox 03/24/20 14:25 95 03/24/20 14:02 133/90 113/75 86 L 92 L 100 03/24/20 11:14 131/93 H 98 100 85 L 03/24/20 08:00 03/24/20 07:00 95 Admit Weight 217 lb 8 oz Weight 224 lb 6.889 oz - Physical Exam General: alert & oriented x3 HEENT: mucus membranes moist Neck: supple neck Cardiac: regular rate and rhythm Lungs: normal breath sounds Neuro: grossly intact Abdomen: active bowel sounds Extremities: no edema Skin: clear Musculoskeletal: no pain - Labs Result Diagrams: 03/24/20 04:00 03/23/20 04:09 Troponin/CKMB Troponin I 0.065 ng/mL (< 0.028) H 03/12/20 10:01 - Telemetry Supraventricular conduction: atrial fibrillation - Assessment/Plan Assessment/Plan: 1. Worsening dilated CM 2. Ischemic CM EF at 28% 3. CAD 4. ESRD 5. Bed bugs 2 months ago, treated at home per her report. 6. In stent re stenosis recurrent to LAD and severe RCA disease. 7. Post op afib. 8. S/P CABG. PLAN: - ASA/Statin, BB, ACEI - HD per nephrology - Continue amiodarone drip. - Increase PT as tolerated. Encouraged to more than what being done at this time.
--- NOTE | 2020-03-24 19:35 | PDOC.HOSPP ---
- Subjective Encounter Date: 03/24/20 Encounter Time: 17:30 Subjective: Patient seen and examined for coronary artery disease status post CABG. Pain controlled. Not participating much with physical therapy. Undergoing hemodialysis at this time. - Objective Vital Signs & Weight: Vital Signs (12 hours) Temp Pulse Pulse Pulse Pulse Resp BP 03/24/20 18:22 106 H 18 03/24/20 16:00 97.5 F L 03/24/20 14:25 98 13 03/24/20 14:02 91 82 03/24/20 12:00 97.6 F 03/24/20 11:14 68 106 H 84/61 L 03/24/20 08:00 97.7 F BP BP Pulse Ox Pulse Ox Pulse Ox Pulse Ox 03/24/20 18:22 94 L 03/24/20 16:00 03/24/20 14:25 95 03/24/20 14:02 133/90 113/75 86 L 92 L 100 03/24/20 12:00 03/24/20 11:14 131/93 H 98 100 85 L 03/24/20 08:00 99 Weight Admit Weight 217 lb 8 oz Weight 224 lb 6.889 oz Most Recent Monitor Data Heart Rate from ECG 100 NIBP 117/84 NIBP BP-Mean 95 Respiration from ECG 15 SpO2 96 I&O: 03/23/20 03/24/20 03/25/20 06:59 06:59 06:59 Intake Total 1651 600 760 Output Total 175 165 172 Balance 1476 435 588 Result Diagrams: 03/24/20 04:00 03/23/20 04:09 Additional Labs: Accuchecks 03/24/20 03/24/20 03/24/20 16:38 12:24 04:10 POC Glucose 197 H 246 H 175 H 03/23/20 22:16 POC Glucose 193 H EKG Reviewed by me: Yes (Atrial fibrillation on telemetry) Hospitalist ROS - Review of Systems Respiratory: denies: cough, dry, shortness of breath, hemoptysis, SOB with excertion, pleuritic pain, sputum, wheezing, other Cardiovascular: denies: chest pain, palpitations, orthopnea, paroxysmal noc. dyspnea, edema, light headedness, other - Medication Medications: Active Medications Generic Name Dose Route Start Last Admin Trade Name Freq PRN Reason Stop Dose Admin Acetaminophen 650 mg 03/19/20 15:14 03/23/20 15:39 Tylenol PO 650 mg Q6H PRN Administration Headache/Fever Or Mild Pain Albuterol/Ipratropium 3 ml 03/22/20 07:00 03/24/20 18:22 Duoneb EZPAP 3 ml [id number] CECILIA Administration Alprazolam 0.25 mg 03/21/20 07:39 03/24/20 10:02 Xanax PO 0.25 mg TID PRN Administration Anxiety Atorvastatin Calcium 40 mg 03/23/20 21:00 03/23/20 22:11 Lipitor PO 40 mg HS CECILIA Administration Clopidogrel Bisulfate 75 mg 03/21/20 09:00 03/24/20 10:01 Plavix PO 75 mg DAILY CECILIA Administration Epoetin Solis-epbx 10,000 unit 03/22/20 11:00 03/24/20 12:26 Retacrit IVP 10,000 unit MoWeFr CECILIA Administration Norepinephrine Bitartrate 250 mls @ 0 mls/hr 03/19/20 15:14 03/22/20 02:10 Levophed IVPB 250 mls PRN PRN Administration To maintain SBP > 90 mmHG Protocol Titrate Amiodarone HCl 450 mg/ 259 mls @ 0 mls/hr 03/21/20 13:30 03/24/20 12:09 Miscellaneous Medication 1 IVPB 259 mls each/ Dextrose/Water INF CECILIA Administration Protocol As Directed Insulin Human Regular 0 units 03/19/20 15:24 03/24/20 16:37 Humulin R SC 4 unit Q4H PRN Administration POST OP SLIDING SCALE Protocol Morphine Sulfate 2 mg 03/19/20 15:14 03/20/20 09:00 Morphine SLOW IVP 2 mg Q15MIN PRN Administration Severe Pain (7-10) Ondansetron HCl 4 mg 03/19/20 15:14 03/19/20 21:59 Zofran IVP 4 mg Q6H PRN Administration Nausea/Vomiting Pantoprazole Sodium 40 mg 03/22/20 09:00 03/24/20 10:02 Protonix PO 40 mg DAILY CECILIA Administration Pregabalin 75 mg 03/21/20 09:00 03/24/20 09:59 Lyrica PO 75 mg BID CECILIA Administration Sodium Chloride 10 ml 03/21/20 09:00 09/16/20 10:02 Flush - Normal Saline IVF 10 ml Q12HR CECILIA Administration Tramadol HCl 100 mg 03/19/20 15:14 03/22/20 15:49 Ultram PO 100 mg Q12H PRN Administration Pain - Exam General Appearance: ill appearing Heart: no rubs, irregular Respiratory: no wheezes, no ronchi Gastrointestinal: soft, non-distended, normal bowel sounds, no guarding, no rigidity Extremities: no cyanosis Hosp A/P (1) Chest pain Code(s): R07.9 - CHEST PAIN, UNSPECIFIED Status: Acute Qualifiers: Ischemic chest pain type: unspecified angina pectoris type (2) Atrial fibrillation with rapid ventricular response Code(s): I48.91 - UNSPECIFIED ATRIAL FIBRILLATION Status: Acute (3) CAD (coronary artery disease) Code(s): I25.10 - ATHSCL HEART DISEASE OF [place] CORONARY ARTERY W/O ANG PCTRS Status: Chronic (4) S/P CABG (coronary artery bypass graft) Code(s): Z95.1 - PRESENCE OF AORTOCORONARY BYPASS GRAFT Status: Acute (5) Chronic combined systolic and diastolic congestive heart failure Code(s): I50.42 - CHRONIC COMBINED SYSTOLIC AND DIASTOLIC HRT FAIL (6) COPD (chronic obstructive pulmonary disease) Status: Chronic (7) DM type 2 (diabetes mellitus, type 2) Status: Chronic Qualifiers: Diabetes mellitus assisted insulin use: with termite control representative use Diabetes mellitus complication status: with kidney complications Diabetes mellitus complication detail: with chronic kidney disease Chronic kidney disease stage: stage 3 (moderate) Qualified Code(s): E11.22 - Type 2 diabetes mellitus with diabetic chronic kidney disease; N18.3 - Chronic kidney disease, stage 3 (moderate); Z79.4 - USP (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 of insulin (8) ESRD (end stage renal disease) on dialysis Code(s): N18.6 - END STAGE RENAL DISEASE; Z99.2 - DEPENDENCE ON RENAL DIALYSIS Status: Chronic (9) Urinary retention Code(s): R33.9 - RETENTION OF URINE, UNSPECIFIED Status: Acute (10) HLD (hyperlipidemia) Code(s): E78.5 - HYPERLIPIDEMIA, UNSPECIFIED Status: Chronic (11) HTN (hypertension) Code(s): I10 - ESSENTIAL (PRIMARY) HYPERTENSION Status: Chronic (12) Hypothyroidism Code(s): E03.9 - HYPOTHYROIDISM, UNSPECIFIED Status: Chronic (13) Ischemic cardiomyopathy Code(s): I25.5 - ISCHEMIC CARDIOMYOPATHY Status: Chronic (14) Obesity (BMI 30.0-34.9) Code(s): E66.9 - OBESITY, UNSPECIFIED Status: Chronic - Plan DVT proph w/SCDs 03/24 Continue physical therapy. Continue amiodarone drip. Continue Plavix with statin. Continue physical therapy. Hemodialysis per nephrology. Pain control. Check electrolytes in a.m. 03/23 Remains on amiodarone drip. Continue Critical Care Unit monitoring. Received 2 units of PRBC yesterday. A.m. labs. Continue other medications as above. Continue physical therapy. Continue Plavix. 03/22 Patient currently on amiodarone drip for atrial fibrillation. Continue Plavix. Continue nebulizer treatment. Continue Lyrica for neuropathic pain. Prn morphine. Blood transfusion today. Recheck labs in a.m. Patient received 1 dose of digoxin yesterday a.m. labs 03/21 Continue postoperative care. On low-dose Levophed. Plavix and Lyrica started earlier today. Pain control. Continue Howard catheter. Continue Accu-Cheks. Recheck labs in a.m. Chest x-ray in a.m. Physical therapy consulted 03/20 Continue postoperative care in critical care unit. Continue with insulin drip. Continue Plavix. Pain control. Continue other medications as above. A.m. labs.
[2020-03-24] MEDS: Atorvastatin Calcium 40 MG TAB PO SCH (21:17)
[2020-03-25] MEDS: Insulin Regular 300 UNITS/3 ML VIAL SC PRN ×3 (05:11→21:09)
[2020-03-25 05:13] LABS: #Eosinphils 0.2 thou/uL (0.0-0.7); #Lymphocytes 1.1 thou/uL (1.20-3.40); #Monocytes 0.8 thou/uL (0.11-0.59); #Neutrophils 3.8 thou/uL (1.40-6.50); %Basophils 0.2 % (0.0-1.0); %Eosinophils 3.3 % (0.0-10.0); %Lymphocytes 18.7 % (21.0-51.0); %Monocytes 13.3 % (0.0-10.0); %Neutrophils 64.4 % (42.0-75.0); Hemoglobin 9.6 g/dL (12.0-16.0); Mean Corpuscular HGB CONC 32.3 g/dL (32.0-36.0); Mean Corpuscular Hemoglobin 29.4 pg (27.0-31.0); Mean Corpuscular Volume 91.1 fL (78.0-98.0); Mean Platelet Volume 8.8 fL (7.4-10.4); Platelet Count 222 thou/uL (130-400); Red Blood Cell (RBC) Count 3.27 mill/uL (4.20-5.40)
[2020-03-25 05:36] LABS: Anion Gap 13 mmol/L (10-20); BUN (Urea Nitrogen) 33 mg/dL (9.8-20.1); Calc. Creatinine Clearance 36 mL/min (70-130); Calcium 8.4 mg/dL (7.8-10.44); Carbon Dioxide 26 mmol/L (23-31); Chloride 96 mmol/L (98-107); Estimated GFR-MDRD 19; Glucose 178 mg/dL (80-115); Magnesium 1.9 mg/dL (1.6-2.6); Potassium 3.6 mmol/L (3.5-5.1); Sodium 131 mmol/L (136-145)
--- NOTE | 2020-03-25 07:52 | PRG ---
DATE OF SERVICE: 03/25/2020 SUBJECTIVE: The patient is doing well. No complaints. OBJECTIVE: VITAL SIGNS: Temperature 98.3, pulse 110, blood pressure 133/65, O2 saturation 96% on room air. HEENT: Unremarkable. NECK: No adenopathy or JVD. LUNGS: Clear anteriorly. CARDIAC: S1 and S2. Regular. ABDOMEN: Soft. EXTREMITIES: Slight edema. LABORATORY DATA: White blood cell count 6, hematocrit 29.7, and platelet count 222. Sodium 131, potassium 3.6, chloride 96, CO2 of 26, BUN 33, creatinine 2.6, glucose 178. ASSESSMENT: 1. Slowly improving respiratory status, status post coronary artery bypass grafting surgery. 2. Chronic renal failure, requiring hemodialysis. 3. Atrial fibrillation requiring amiodarone. PLAN: The patient is transferred into the IMCU. She will continue pulmonary toilet measures with EzPAP and nebs. No further recommendations at this time. Job ID: [id number]
[2020-03-25] MEDS: Enoxaparin Sodium 80 MG/0.8 ML SYRINGE SC SCH (08:11)
[2020-03-25] MEDS: Pregabalin 75 MG CAP PO SCH ×2 (08:11→21:02)
[2020-03-25] MEDS: Clopidogrel Bisulfate 75 MG TAB PO SCH (08:12)
[2020-03-25] MEDS: ALPRAZolam 0.25 MG TAB PO PRN ×2 (08:19→21:08)
--- NOTE | 2020-03-25 11:00 | PRG ---
DATE OF SERVICE: 03/25/2020 SUBJECTIVE: Patient was seen and examined at bedside and overnight events noted. Patient denies any shortness of breath or chest pain or palpitation. No history of nausea or vomiting or diarrhea or fever or chills or cramps. OBJECTIVE: GENERAL: This is a well-built female, in no apparent distress. VITAL SIGNS: Temperature 97.7. Heart Rate 110. Respiratory rate 18. Blood pressure 140/81. HEENT: Atraumatic, normocephalic. Oral mucosa is moist. NECK: Supple. CARDIOVASCULAR: S1, S2 heard. Rate and rhythm regular. RESPIRATORY: Clear to auscultation. GASTROINTESTINAL: Abdomen is soft. MUSCULOSKELETAL: No tenderness. No edema. DERMATOLOGIC: No skin rash. NEUROLOGIC: Alert and awake and oriented x3. No focal neurologic deficits. Moving all the extremities. PSYCHIATRIC: Mood and affect normal. LABORATORY DATA: Potassium 3.6, BUN is 33, creatinine is 2.6. ASSESSMENT AND PLAN: 1. End-stage renal disease. Continue dialysis as tolerated. 2. Anemia, status post transfusion. Continue Epogen. 3. Cardiorenal syndrome. 4. Hypertension. 5. Hyponatremia. Check chest x-ray in the morning and we will continue dialysis as tolerated. Job ID: [id number]
[2020-03-25] MEDS: traMADol HCl 50 MG TAB PO PRN (18:43)
[2020-03-25] MEDS: Amiodarone 450 MG, Admixture Fee 1 EACH in Dextrose 5% in Water 250 ML IVPB SCH (18:44)
--- NOTE | 2020-03-25 18:44 | PDOC.CPN ---
- Subjective Date: 03/25/20 Time: 18:42 Interval history: She feels better today. She has not been doing much with PT. - Review of Systems General: denies: fever/chills, weight/appetite/sleep changes, night sweats, fatigue Respiratory: denies: cough, congestion, shortness of breath, exercise intolerance Cardiovascular: denies: chest pain, palpitation, edema, paroxysmal nocturnal dyspnea, orthopnea Gastrointestinal: denies: nausea, vomiting, diarrhea, constipation, abd pain, GI bleeding Musculoskeletal: denies: pain, tenderness, stiffness, swelling, a rthritis/arthralgias Neurological: denies: numbness, syncope, seizure, weakness - Objective Allergies/Adverse Reactions: Allergies Allergy/AdvReac Type Severity Reaction Status Date / Time adhesive tape Allergy Verified 02/27/20 11:07 aspirin Allergy Verified 02/27/20 11:07 latex Allergy Verified 02/27/20 11:07 meperidine [From Demerol] Allergy Verified 02/27/20 11:07 morphine Allergy Verified 02/27/20 11:07 lace Allergy Uncoded 02/27/20 11:07 Visit Medications: Current Medications Acetaminophen (Tylenol) 650 mg PO Q6H PRN PRN Reason: Headache/Fever Or Mild Pain Last Admin: 03/23/20 15:39 Dose: 650 mg Documented by: Albuterol/Ipratropium (Duoneb) 3 ml EZPAP [id number] [facility] Last Admin: 03/25/20 13:05 Dose: 3 ml Documented by: Alprazolam (Xanax) 0.25 mg PO TID PRN PRN Reason: Anxiety Last Admin: 03/25/20 08:19 Dose: 0.25 mg Documented by: Atorvastatin Calcium (Lipitor) 40 mg PO HS [facility] Last Admin: 03/24/20 21:17 Dose: 40 mg Documented by: Bisacodyl (Dulcolax) 10 mg PO Q12H PRN PRN Reason: Constipation Bisacodyl (Dulcolax) 10 mg [place] Q12H PRN PRN Reason: Constipation Clopidogrel Bisulfate (Plavix) 75 mg PO DAILY [facility] Last Admin: 03/25/20 08:12 Dose: 75 mg Documented by: Dextrose/Water (Dextrose 50%) 25 gm SLOW IVP PRN PRN PRN Reason: PER HYPOGLYCEMIC PROTOCOL Enoxaparin Sodium (Enoxaparin Sodium 80 Mg/0.8 Ml Syringe) 80 mg SC 0900 [facility] Last Admin: 03/25/20 08:11 Dose: 80 mg Documented by: Epoetin Solis-epbx (Retacrit) 10,000 unit IVP MoWeFr [facility] Last Admin: 03/24/20 12:26 Dose: 10,000 unit Documented by: Glucagon (Glucagon) 1 mg SC PRN PRN PRN Reason: PER HYPOGLYCEMIC PROTOCOL Guaifenesin/Dextromethorphan (Robitussin Dm) 15 ml PO Q4H PRN PRN Reason: Cough Hydralazine HCl (Apresoline) 10 mg SLOW IVP Q6H PRN PRN Reason: To Maintain SBP< 140mmHG Dextrose/Water (D5w) 1,000 mls @ 0 mls/hr IV INF PRN PRN Reason: PRN HYPOGLYCEMIC PROTOCOL Amiodarone HCl 450 mg/Miscellaneous Medication 1 each/ Dextrose/Water 259 mls @ 0 mls/hr IVPB INF [facility]; Protocol Last Admin: 03/24/20 12:09 Dose: 259 mls Documented by: Insulin Human Regular (Humulin R) 0 units SC Q4H PRN; Protocol PRN Reason: POST OP SLIDING SCALE Last Admin: 03/25/20 11:39 Dose: 6 unit Documented by: Morphine Sulfate (Morphine) 2 mg SLOW IVP Q15MIN PRN PRN Reason: Severe Pain (7-10) Last Admin: 03/20/20 09:00 Dose: 2 mg Documented by: Ondansetron HCl (Zofran) 4 mg IVP Q6H PRN PRN Reason: Nausea/Vomiting Last Admin: 03/19/20 21:59 Dose: 4 mg Documented by: Pantoprazole Sodium (Protonix) 40 mg PO DAILY [facility] Last Admin: 03/25/20 08:12 Dose: 40 mg Documented by: Pregabalin (Lyrica) 75 mg PO BID [facility] Last Admin: 03/25/20 08:11 Dose: 75 mg Documented by: Sodium Chloride (Flush - Normal Saline) 10 ml IVF Q12HR [facility] Last Admin: 03/25/20 08:12 Dose: 10 ml Documented by: Sodium Chloride (Flush - Normal Saline) 10 ml IVF PRN PRN PRN Reason: Saline Flush Tramadol HCl (Ultram) 50 mg PO Q12H PRN PRN Reason: Pain Tramadol HCl (Ultram) 100 mg PO Q12H PRN PRN Reason: Pain Last Admin: 03/22/20 15:49 Dose: 100 mg Documented by: Vital Signs & Weight: Vital Signs Temp Pulse Pulse Pulse Resp BP BP 03/25/20 16:36 98.2 F 03/25/20 13:05 103 H 17 03/25/20 12:00 98 F 03/25/20 09:25 111 H 96 140/81 117/68 03/25/20 08:00 97.7 F 03/25/20 07:48 104 H 20 Pulse Ox 03/25/20 16:36 03/25/20 13:05 97 03/25/20 12:00 03/25/20 09:25 03/25/20 08:00 94 L 03/25/20 07:48 98 Admit Weight 217 lb 8 oz Weight 224 lb 6.889 oz - Physical Exam General: alert & oriented x3 HEENT: mucus membranes moist Neck: supple neck Cardiac: irregularly regular Lungs: normal breath sounds Neuro: motor function intact Abdomen: active bowel sounds Extremities: 1+ LE edema Skin: clear Musculoskeletal: no pain - Labs Result Diagrams: 03/25/20 05:05 03/25/20 05:05 Troponin/CKMB Troponin I 0.065 ng/mL (< 0.028) H 03/12/20 10:01 - Telemetry Supraventricular conduction: atrial fibrillation - Assessment/Plan Assessment/Plan: 1. Ischemic CM EF at 28% 2. CAD 3. ESRD 4. Bed bugs 2 months ago, treated at home per her report. 5. In stent re stenosis recurrent to LAD and severe RCA disease. 6. Post op afib. 7. S/P CABG. PLAN: - ASA/Statin. - HD per nephrology - Continue amiodarone drip. - Will add BB for better rate control. - Will start very low dose Digoxin at 0.125 mcg every other day for rate control. - If she buchanan snot convert in next few days will need JUVE Cardioversion. - Agree with full anticoagulation for stroke prophylaxis as long as safe from surgical perspective. - Increase PT as tolerated. Encouraged again. - Will likely need placement.
--- NOTE | 2020-03-25 20:51 | PDOC.HOSPP ---
- Subjective Encounter Date: 03/25/20 Encounter Time: 09:00 Subjective: Patient seen and examined for coronary artery disease requiring CABG. Pain controlled. Denies any nausea or vomiting. Remains on amiodarone drip. - Objective Vital Signs & Weight: Vital Signs (12 hours) Temp Pulse Pulse Pulse Resp BP BP 03/25/20 19:57 03/25/20 19:10 97.1 F L 03/25/20 18:54 102 H 16 03/25/20 16:36 98.2 F 03/25/20 13:05 103 H 17 03/25/20 12:00 98 F 03/25/20 09:25 111 H 96 140/81 117/68 Pulse Ox 03/25/20 19:57 94 L 03/25/20 19:10 03/25/20 18:54 94 L 03/25/20 16:36 03/25/20 13:05 97 03/25/20 12:00 03/25/20 09:25 Weight Admit Weight 217 lb 8 oz Weight 224 lb 6.889 oz Most Recent Monitor Data Heart Rate from ECG 106 NIBP 133/78 NIBP BP-Mean 96 Respiration from ECG 13 SpO2 93 I&O: 03/24/20 03/25/20 03/26/20 06:59 06:59 06:59 Intake Total 600 1442 730 Output Total 165 334 75 Balance 435 1108 655 Result Diagrams: 03/25/20 05:05 03/25/20 05:05 Additional Labs: Accuchecks 03/25/20 03/25/20 03/24/20 17:03 05:11 21:22 POC Glucose 198 H 179 H 182 H EKG Reviewed by me: Yes (Telemetryatrial fibrillation) Hospitalist ROS - Review of Systems Respiratory: denies: cough, dry, shortness of breath, hemoptysis, SOB with excertion, pleuritic pain, sputum, wheezing, other Cardiovascular: denies: chest pain, palpitations, orthopnea, paroxysmal noc. dyspnea, edema, light headedness, other - Medication Medications: Active Medications Generic Name Dose Route Start Last Admin Trade Name Freq PRN Reason Stop Dose Admin Acetaminophen 650 mg 03/19/20 15:14 03/23/20 15:39 Tylenol PO 650 mg Q6H PRN Administration Headache/Fever Or Mild Pain Albuterol/Ipratropium 3 ml 03/22/20 07:00 03/25/20 18:54 Duoneb EZPAP 3 ml [id number] CECILIA Administration Alprazolam 0.25 mg 03/21/20 07:39 03/25/20 08:19 Xanax PO 0.25 mg TID PRN Administration Anxiety Atorvastatin Calcium 40 mg 03/23/20 21:00 03/24/20 21:17 Lipitor PO 40 mg HS CECILIA Administration Clopidogrel Bisulfate 75 mg 03/21/20 09:00 03/25/20 08:12 Plavix PO 75 mg DAILY CECILIA Administration Enoxaparin Sodium 80 mg 03/25/20 09:00 03/25/20 08:11 Enoxaparin Sodium 80 Mg/0.8 Ml Syringe SC 80 mg 0900 CECILIA Administration Epoetin Solis-epbx 10,000 unit 03/22/20 11:00 03/24/20 12:26 Retacrit IVP 10,000 unit MoWeFr CECILIA Administration Amiodarone HCl 450 mg/ 259 mls @ 0 mls/hr 03/21/20 13:30 03/25/20 18:44 Miscellaneous Medication 1 IVPB 259 mls each/ Dextrose/Water INF CECILIA Administration Protocol As Directed Insulin Human Regular 0 units 03/19/20 15:24 03/25/20 11:39 Humulin R SC 6 unit Q4H PRN Administration POST OP SLIDING SCALE Protocol Morphine Sulfate 2 mg 03/19/20 15:14 03/20/20 09:00 Morphine SLOW IVP 2 mg Q15MIN PRN Administration Severe Pain (7-10) Ondansetron HCl 4 mg 03/19/20 15:14 03/19/20 21:59 Zofran IVP 4 mg Q6H PRN Administration Nausea/Vomiting Pantoprazole Sodium 40 mg 03/22/20 09:00 03/25/20 08:12 Protonix PO 40 mg DAILY CECILIA Administration Pregabalin 75 mg 03/21/20 09:00 03/25/20 08:11 Lyrica PO 75 mg BID CECILIA Administration Sodium Chloride 10 ml 03/21/20 09:00 03/25/20 08:12 Flush - Normal Saline IVF 10 ml Q12HR CECILIA Administration Tramadol HCl 100 mg 03/19/20 15:14 03/25/20 18:43 Ultram PO 100 mg Q12H PRN Administration Pain - Exam General Appearance: NAD Neck: supple, no JVD Heart: no gallops, no rubs, irregular Respiratory: no wheezes, rhonchi Respiratory - other findings: Decreased air entry at bases Gastrointestinal: soft, no guarding, no rigidity Neurological: no new deficit Hosp A/P (1) Chest pain Code(s): R07.9 - CHEST PAIN, UNSPECIFIED Status: Acute Qualifiers: Ischemic chest pain type: unspecified angina pectoris type (2) Atrial fibrillation with rapid ventricular response Code(s): I48.91 - UNSPECIFIED ATRIAL FIBRILLATION Status: Acute (3) CAD (coronary artery disease) Code(s): I25.10 - ATHSCL HEART DISEASE OF [place] CORONARY ARTERY W/O ANG PCTRS Status: Chronic (4) S/P CABG (coronary artery bypass graft) Code(s): Z95.1 - PRESENCE OF AORTOCORONARY BYPASS GRAFT Status: Acute (5) Chronic combined systolic and diastolic congestive heart failure Code(s): I50.42 - CHRONIC COMBINED SYSTOLIC AND DIASTOLIC HRT FAIL (6) COPD (chronic obstructive pulmonary disease) Status: Chronic (7) DM type 2 (diabetes mellitus, type 2) Status: Chronic Qualifiers: Diabetes mellitus [employer] insulin use: with [employer]orer [employer] use Diabetes mellit complication status: with kidney complications Diabetes mellitus compl ication detail: with chronic kidney disease Chronic kidney disease stage: stage 3 (moderate) Qualified Code(s): E11.22 - Type 2 diabetes mellitus with diabetic chronic kidney disease; N18.3 - Chronic kidney disease, stage 3 (moderate); Z79.4 - [employer] (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 of insulin (8) ESRD (end stage renal disease) on dialysis Code(s): N18.6 - END STAGE RENAL DISEASE; Z99.2 - DEPENDENCE ON RENAL DIALYSIS Status: Chronic (9) Urinary retention Code(s): R33.9 - RETENTION OF URINE, UNSPECIFIED Status: Acute (10) HLD (hyperlipidemia) Code(s): E78.5 - HYPERLIPIDEMIA, UNSPECIFIED Status: Chronic (11) HTN (hypertension) Code(s): I10 - ESSENTIAL (PRIMARY) HYPERTENSION Status: Chronic (12) Hypothyroidism Code(s): E03.9 - HYPOTHYROIDISM, UNSPECIFIED Status: Chronic (13) Ischemic cardiomyopathy Code(s): I25.5 - ISCHEMIC CARDIOMYOPATHY Status: Chronic (14) Obesity (BMI 30.0-34.9) Code(s): E66.9 - OBESITY, UNSPECIFIED Status: Chronic - Plan PT/OT 03/25 Continue Plavix. Digoxin and metoprolol started today. Continue amiodarone drip. Started on Lovenox 80 mg daily from today. Continue supportive care. Transfer to [facility]. Continue Lipitor. Continue other medications as above. Dialysis per nephrology. 03/24 Continue physical therapy. Continue amiodarone drip. Continue Plavix with statin. Continue physical therapy. Hemodialysis per nephrology. Pain control. Check electrolytes in a.m. 03/23 Remains on amiodarone drip. Continue Critical Care Unit monitoring. Received 2 units of PRBC yesterday. A.m. labs. Continue other medications as above. Continue physical therapy. Continue Plavix. 03/22 Patient currently on amiodarone drip for atrial fibrillation. Continue Plavix. Continue nebulizer treatment. Continue Lyrica for neuropathic pain. Prn morphine. Blood transfusion today. Recheck labs in a.m. Patient received 1 dose of digoxin yesterday a.m. labs 03/21 Continue postoperative care. On low-dose Levophed. Plavix and Lyrica started earlier today. Pain control. Continue Howard catheter. Continue Accu-Cheks. Recheck labs in a.m. Chest x-ray in a.m. Physical therapy consulted 03/20 Continue postoperative care in critical care unit. Continue with insulin drip. Continue Plavix. Pain control. Continue other medications as above. A.m. labs.
[2020-03-25] MEDS: Metoprolol Tartrate 25 MG TAB PO SCH (21:05)
[2020-03-25] MEDS: Atorvastatin Calcium 40 MG TAB PO SCH (21:05)
[2020-03-25] MEDS: Digoxin 0.125 MG TAB PO SCH (21:14)
[2020-03-26 03:30] LABS: #Eosinphils 0.1 thou/uL (0.0-0.7); #Lymphocytes 1.1 thou/uL (1.20-3.40); #Monocytes 0.8 thou/uL (0.11-0.59); #Neutrophils 4.5 thou/uL (1.40-6.50); %Basophils 0.7 % (0.0-1.0); %Lymphocytes 16.6 % (21.0-51.0); %Monocytes 12.5 % (0.0-10.0); %Neutrophils 68.1 % (42.0-75.0); Hemoglobin 9.3 g/dL (12.0-16.0); Mean Corpuscular Hemoglobin 28.1 pg (27.0-31.0); Mean Corpuscular Volume 90.8 fL (78.0-98.0); Mean Platelet Volume 8.9 fL (7.4-10.4); Platelet Count 253 thou/uL (130-400); RBC Distribution Width 14.4 % (11.5-14.5); White Blood Cell (WBC) Count 6.6 thou/uL (4.8-10.8)
[2020-03-26] MEDS: Insulin Regular 300 UNITS/3 ML VIAL SC PRN ×2 (04:40→12:52)
--- NOTE | 2020-03-26 08:20 | RAD ---
EXAM: Single view of the chest HISTORY: Fluid overload COMPARISON: 03/22/2020 FINDINGS: Single view of the chest shows an enlarged but stable cardiomediastinal silhouette. The pa tient is status post sternotomy. The dialysis catheter and central venous catheter are unchanged in position. The left hemidiaphragm is unable to be visualized which may represent atelectasis or a l eft pleural effusion. IMPRESSION: Cardiomegaly and left pleural effusion
--- NOTE | 2020-03-26 09:18 | PRG ---
DATE OF SERVICE: 03/26/2020 SUBJECTIVE: Ms. Mendez appears weak. She complains of fatigue. She states she has been working with Physical Therapy, but not doing much on her own. Her heart rate continues to be stable with heart rate in the 80s to 90s. No current complaints of palpitations or heart fluttering. OBJECTIVE: VITAL SIGNS: Blood pressure 103/68, pulse 95, respirations 20. LUNGS: Clear to auscultation. HEART: Irregularly irregular. ABDOMEN: Obese, soft, nontender. EXTREMITIES: 1+ pitting edema. PERTINENT LABORATORY DATA: Hemoglobin 9.3, creatinine 2.61. IMPRESSION: 1. Coronary artery disease, status post bypass surgery. 2. Atrial fibrillation. 3. Ischemic cardiomyopathy. 4. Renal disease. RECOMMENDATIONS: 1. Continue CV medications including aspirin, statin therapy, beta-laura therapy. 2. Encourage physical therapy. 3. Consider JUVE cardioversion per Dr. Peter's note if still in atrial fibrillation over the weekend. Job ID: [id number]
[2020-03-26] MEDS ORDERED: Heparin 10,000 UNITS/ 10 ML VIAL ONE (09:21)
--- NOTE | 2020-03-26 09:41 | PRG ---
DATE OF SERVICE: 03/26/2020 SUBJECTIVE: The patient is doing reasonably well. Has no acute complaints. OBJECTIVE: VITAL SIGNS: Temperature 97.7, pulse 99, blood pressure 130/68, O2 saturation 94%. HEENT: Unremarkable. NECK: No adenopathy or JVD. LUNGS: Diminished breath sounds. CARDIAC: S1 and S2 regular. ABDOMEN: Soft. EXTREMITIES: No edema. LABORATORY DATA: White blood cell count 6.6, hematocrit 30, and platelet count 253. ASSESSMENT: Status post coronary artery bypass grafting surgery with slow clinical improvement. PLAN: [facility] for pulmonary toilet [facility]. Can be transferred out to telemetry when okay with Cardiovascular Surgery. Job ID: [id number]
[2020-03-26] MEDS: Enoxaparin Sodium 80 MG/0.8 ML SYRINGE SC SCH (09:57)
[2020-03-26] MEDS: Clopidogrel Bisulfate 75 MG TAB PO SCH (09:58)
[2020-03-26] MEDS: Pregabalin 75 MG CAP PO SCH ×2 (09:59→21:01)
[2020-03-26] MEDS: Metoprolol Tartrate 25 MG TAB PO SCH ×2 (10:02→21:01)
[2020-03-26] MEDS: traMADol HCl 50 MG TAB PO PRN ×2 (10:03→22:07)
[2020-03-26] MEDS: ALPRAZolam 0.25 MG TAB PO PRN ×2 (10:07→22:07)
--- NOTE | 2020-03-26 10:19 | PRG ---
DATE OF SERVICE: SUBJECTIVE: Patient was seen and examined at bedside and overnight events noted. Patient denies any shortness of breath or chest pain or palpitation. No history of nausea or vomiting or diarrhea or fever or chills or cramps. OBJECTIVE: General: This is a well-built female, in no apparent distress. Vital Signs: Temperature 97.7. Heart Rate 95. Respiratory rate 18. Blood pressure 103/68. HEENT: Atraumatic, normocephalic. Oral mucosa is moist. Neck: Supple. Cardiovascular: S1, S2 heard. Rate and rhythm regular. Respiratory: Clear to auscultation. Gastrointestinal: Abdomen is soft. Musculoskeletal: No tenderness. No edema. Dermatologic: No skin rash. Neurologic: Alert and awake and oriented x3. No focal neurologic deficits. Moving all the extremities. Psychiatric: Mood and affect normal. LABORATORY DATA: Not done today. ASSESSMENT AND PLAN: 1. End-stage renal disease. We will have gentle dialysis today for 2 hours. The patient usually does once a week dialysis, but due to recent coronary artery bypass grafting and mild fluid level on the x-ray, will have dialysis for 2 hours and fluid removal if tolerated. Plan to remove 1 to 2 L. 2. Anemia, status post transfusion. We will continue Epogen with dialysis. 3. Cardiorenal syndrome. As above, we will remove fluid gently as tolerated. 4. History of hypertension. 5. Recent coronary artery bypass grafting surgery. 6. Hyponatremia, limit fluid intake. 7. Plan to have a gentle dialysis for 2 hours with fluid removal if tolerated. Job ID: [id number]
[2020-03-26] MEDS ORDERED: Insulin Glargine 10 UNITS in Pre-Filled Syringe 1 EACH SC SCH (12:00)
[2020-03-26] MEDS: EPOETIN ALFA-EPBX (ESRD) 10,000 UNIT/ML VIAL IVP SCH (12:52)
[2020-03-26] MEDS: Acetaminophen 325 MG TAB PO PRN (18:39)
[2020-03-26] MEDS: Atorvastatin Calcium 40 MG TAB PO SCH (21:01)
--- NOTE | 2020-03-26 21:10 | PDOC.HOSPP ---
- Subjective Encounter Date: 03/26/20 Encounter Time: 10:00 Subjective: Patient seen and examined for coronary artery disease/atrial fibrillation. Remains in atrial fibrillation. Denies any chest pain or shortness of breath. - Objective Vital Signs & Weight: Vital Signs (12 hours) Temp Pulse Pulse Resp BP BP Pulse Ox 03/26/20 18:42 92 14 93 L 03/26/20 15:21 98.5 F 03/26/20 12:32 95 20 100 03/26/20 11:21 98.2 F 03/26/20 09:30 100 139/89 120/68 Weight Admit Weight 217 lb 8 oz Weight 239 lb Most Recent Monitor Data Heart Rate from ECG 94 NIBP 129/71 NIBP BP-Mean 90 Respiration from ECG 10 SpO2 89 I&O: 03/25/20 03/26/20 03/27/20 06:59 06:59 06:59 Intake Total 1442 915 790 Output Total 168 578 0725 Balance 1108 690 -510 Result Diagrams: 03/26/20 03:25 03/25/20 05:05 Additional Labs: Accuchecks 03/26/20 03/26/20 03/26/20 21:05 17:05 11:09 POC Glucose 216 H 179 H 244 H 03/26/20 03/26/20 03/25/20 08:31 04:42 23:00 POC Glucose 207 H 240 H 260 H EKG Reviewed by me: Yes (Atrial fibrillation on telemetry) Hospitalist ROS - Review of Systems Respiratory: denies: cough, dry, shortness of breath, hemoptysis, SOB with excertion, pleuritic pain, sputum, wheezing, other Cardiovascular: denies: chest pain, palpitations, orthopnea, paroxysmal noc. dys pnea, edema, light headedness, other - Medication Medications: Active Medications Generic Name Dose Route Start Last Admin Trade Name Freq PRN Reason Stop Dose Admin Acetaminophen 650 mg 03/19/20 15:14 03/26/20 18:39 Tylenol PO 650 mg Q6H PRN Administration Headache/Fever Or Mild Pain Albuterol/Ipratropium 3 ml 03/22/20 07:00 03/26/20 18:42 Duoneb EZPAP 3 ml [id number] CECILIA Administration Alprazolam 0.25 mg 03/21/20 07:39 03/26/20 10:07 Xanax PO 0.25 mg TID PRN Administration Anxiety Atorvastatin Calcium 40 mg 03/23/20 21:00 03/26/20 21:01 Lipitor PO 40 mg HS CECILIA Administration Clopidogrel Bisulfate 75 mg 03/21/20 09:00 03/26/20 09:58 Plavix PO 75 mg DAILY CECILIA Administration Digoxin 0.125 mg 03/25/20 20:00 03/25/20 21:14 Digoxin 0.125 Mg Tab PO 0.125 mg Q2DAYS CECILIA Administration Enoxaparin Sodium 80 mg 03/25/20 09:00 03/26/20 09:57 Enoxaparin Sodium 80 Mg/0.8 Ml Syringe SC 80 mg 0900 CECILIA Administration Epoetin Solis-epbx 10,000 unit 03/22/20 11:00 03/26/20 12:52 Retacrit IVP 10,000 unit MoWeFr CECILIA Administration Amiodarone HCl 450 mg/ 259 mls @ 0 mls/hr 03/21/20 13:30 03/25/20 18:44 Miscellaneous Medication 1 IVPB 259 mls each/ Dextrose/Water INF CECILIA Administration Protocol As Directed Insulin Human Regular 0 units 03/19/20 15:24 03/26/20 12:52 Humulin R SC 6 unit Q4H PRN Administration POST OP SLIDING SCALE Protocol Metoprolol Tartrate 12.5 mg 03/25/20 21:00 03/26/20 21:01 Metoprolol Tartrate 25 Mg Tab PO 12.5 mg BID CECILIA Administration Morphine Sulfate 2 mg 03/19/20 15:14 03/20/20 09:00 Morphine SLOW IVP 2 mg Q15MIN PRN Administration Severe Pain (7-10) Ondansetron HCl 4 mg 03/19/20 15:14 03/19/20 21:59 Zofran IVP 4 mg Q6H PRN Administration Nausea/Vomiting Pantoprazole Sodium 40 mg 03/22/20 09:00 03/26/20 10:03 Protonix PO 40 mg DAILY CECILIA Administration Pregabalin 75 mg 03/21/20 09:00 03/26/20 21:01 Lyrica PO 75 mg BID CECILIA Administration Sodium Chloride 10 ml 03/21/20 09:00 03/26/20 21:02 Flush - Normal Saline IVF 10 ml Q12HR CECILIA Administration Tramadol HCl 100 mg 03/19/20 15:14 03/26/20 10:03 Ultram PO 100 mg Q12H PRN Administration Pain - Exam General Appearance: NAD Neck: supple, no JVD Heart: no gallops, no rubs Respiratory: no wheezes, no rales Gastrointestinal: non-tender, non-distended, no guarding Extremities: no cyanosis Neurological: no new deficit Hosp A/P (1) Chest pain Code(s): R07.9 - CHEST PAIN, UNSPECIFIED Status: Acute Qualifiers: Ischemic chest pain type: unspecified angina pectoris type (2) Atrial fibrillation with rapid ventricular response Code(s): I48.91 - UNSPECIFIED ATRIAL FIBRILLATION Status: Acute (3) CAD (coronary artery disease) Code(s): I25.10 - ATHSCL HEART DISEASE OF [place] CORONARY ARTERY W/O ANG PCTRS Status: Chronic (4) S/P CABG (coronary artery bypass graft) Code(s): Z95.1 - PRESENCE OF AORTOCORONARY BYPASS GRAFT Status: Acute (5) Chronic combined systolic and diastolic congestive heart failure Code(s): I50.42 - CHRONIC COMBINED SYSTOLIC AND DIASTOLIC HRT FAIL (6) COPD (chronic obstructive pulmonary disease) Status: Chronic (7) DM type 2 (diabetes mellitus, type 2) Status: Chronic Qualifiers: Diabetes mellitus retirement insulin use: with intermodal customer service use Diabetes mellitus complication status: with kidney complications Diabetes mellitus complication detail: with chronic kidney disease Chronic kidney disease stage: stage 3 (moderate) Qualified Code(s): E11.22 - Type 2 diabetes mellitus with diabetic chronic kidney disease; N18.3 - Chronic kidney disease, stage 3 (moderate); Z79.4 - longterm (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 of insulin (8) ESRD (end stage renal disease) on dialysis Code(s): N18.6 - END STAGE RENAL DISEASE; Z99.2 - DEPENDENCE ON RENAL DIALYSIS Status: Chronic (9) Urinary retention Code(s): R33.9 - RETENTION OF URINE, UNSPECIFIED Status: Acute (10) HLD (hyperlipidemia) Code(s): E78.5 - HYPERLIPIDEMIA, UNSPECIFIED Status: Chronic (11) HTN (hypertension) Code(s): I10 - ESSENTIAL (PRIMARY) HYPERTENSION Status: Chronic (12) Hypothyroidism Code(s): E03.9 - HYPOTHYROIDISM, UNSPECIFIED Status: Chronic (13) Ischemic cardiomyopathy Code(s): I25.5 - ISCHEMIC CARDIOMYOPATHY Status: Chronic (14) Obesity (BMI 30.0-34.9) Code(s): E66.9 - OBESITY, UNSPECIFIED Status: Chronic - Plan DVT proph w/lovenox, DVT proph w/SCDs 03/26 Continue amiodarone drip with Lovenox. Continue digoxin and metoprolol. On Plavix and statins. Continue IMCU monitoring. Hemodialysis per nephrology. Continue other medications as above. Continue physical therapy 03/25 Continue Plavix. Digoxin and metoprolol started today. Continue amiodarone drip. Started on Lovenox 80 mg daily from today. Continue supportive care. Transfer to [facility]. Continue Lipitor. Continue other medications as above. Dialysis per nephrology. 03/24 Continue physical therapy. Continue amiodarone drip. Continue Plavix with statin. Continue physical therapy. Hemodialysis per nephrology. Pain control. Check electrolytes in a.m. 03/23 Remains on amiodarone drip. Continue Critical Care Unit monitoring. Received 2 units of PRBC yesterday. A.m. labs. Continue other medications as above. Continue physical therapy. Continue Plavix. 03/22 Patient currently on amiodarone drip for atrial fibrillation. Continue Plavix. Continue nebulizer treatment. Continue Lyrica for neuropathic pain. Prn m orphine. Blood transfusion today. Recheck labs in a.m. Patient received 1 dose of digoxin yesterday a.m. labs 03/21 Continue postoperative care. On low-dose Levophed. Plavix and Lyrica started earlier today. Pain control. Continue Howard catheter. Continue Accu-Cheks. Recheck labs in a.m. Chest x-ray in a.m. Physical therapy consulted 03/20 Continue postoperative care in critical care unit. Continue with insulin drip. Continue Plavix. Pain control. Continue other medications as above. A.m. labs.
[2020-03-27] MEDS: Amiodarone 450 MG, Admixture Fee 1 EACH in Dextrose 5% in Water 250 ML IVPB SCH (01:40)
[2020-03-27 05:13] LABS: Anion Gap 15 mmol/L (10-20); BUN (Urea Nitrogen) 38 mg/dL (9.8-20.1); Calc. Creatinine Clearance 37 mL/min (70-130); Calcium 8.5 mg/dL (7.8-10.44); Carbon Dioxide 25 mmol/L (23-31); Chloride 96 mmol/L (98-107); Estimated GFR-MDRD 18; Glucose 241 mg/dL (80-115); Potassium 3.9 mmol/L (3.5-5.1); Sodium 132 mmol/L (136-145)
[2020-03-27 05:47] LABS: Band 4 % (5-11); Eosinophils 3 % (0-10); Hemoglobin 10.2 g/dL (12.0-16.0); Lymphocytes 20 % (21-51); MDiff Complete? YES; Mean Corpuscular HGB CONC 32.5 g/dL (32.0-36.0); Mean Corpuscular Hemoglobin 29.9 pg (27.0-31.0); Mean Corpuscular Volume 91.8 fL (78.0-98.0); Mean Platelet Volume 8.8 fL (7.4-10.4); Monocytes 17 % (0-10); Neutrophil 56 % (42-75); Platelet Count 288 thou/uL (130-400); RBC Distribution Width 14.7 % (11.5-14.5); Red Blood Cell (RBC) Count 3.43 mill/uL (4.20-5.40); White Blood Cell (WBC) Count 6.7 thou/uL (4.8-10.8)
[2020-03-27] MEDS: Insulin Regular 300 UNITS/3 ML VIAL SC PRN ×4 (06:50→21:36)
[2020-03-27] MEDS: Metoprolol Tartrate 25 MG TAB PO SCH ×2 (08:18→21:35)
[2020-03-27] MEDS: Clopidogrel Bisulfate 75 MG TAB PO SCH (08:18)
[2020-03-27] MEDS: Pregabalin 75 MG CAP PO SCH ×2 (08:18→21:35)
[2020-03-27] MEDS: Enoxaparin Sodium 80 MG/0.8 ML SYRINGE SC SCH (08:19)
[2020-03-27] MEDS: Insulin Glargine 10 UNITS in Pre-Filled Syringe 1 EACH SC SCH ×2 (08:30→21:36)
[2020-03-27] MEDS: ALPRAZolam 0.25 MG TAB PO PRN ×3 (08:30→21:35)
--- NOTE | 2020-03-27 11:06 | PRG ---
DATE OF SERVICE: 03/27/2020 SUBJECTIVE: Patient was seen and examined at bedside and overnight events noted. Patient denies any shortness of breath or chest pain or palpitation. No history of nausea or vomiting or diarrhea or fever or chills or cramps. OBJECTIVE: GENERAL: This is a well-built female, in no apparent distress. VITAL SIGNS: Temperature 97.0. Heart Rate 86. Respiratory rate . Blood Pressure 136/82. HEENT: Atraumatic, normocephalic. Oral mucosa is moist. NECK: Supple. CARDIOVASCULAR: S1, S2 heard. Rate and rhythm regular. RESPIRATORY: Clear to auscultation. GASTROINTESTINAL: Abdomen is soft. MUSCULOSKELETAL: No tenderness. No edema. DERMATOLOGIC: No skin rash. NEUROLOGIC: Alert and awake and oriented x3. No focal neurologic deficits. Moving all the extremities. PSYCHIATRIC: Mood and affect normal. LABORATORY DATA: Potassium is 3.9, BUN is 38, and creatinine is 2.69. ASSESSMENT AND PLAN: 1. End-stage renal disease. Continue dialysis as tolerated. 2. Anemia of chronic disease, status post transfusion, continue Epogen. 3. Cardiorenal syndrome. 4. History of hypertension. 5. Recent coronary artery bypass grafting surgery. Continue dialysis as tolerated. Job ID: [id number]
[2020-03-27] MEDS: traMADol HCl 50 MG TAB PO PRN (11:28)
--- NOTE | 2020-03-27 11:39 | PDOC.HOSPP ---
- Subjective Encounter Date: 03/27/20 Encounter Time: 10:30 Subjective: Patient seen and examined for coronary artery disease. Not participating much with physical therapy per RN. Denies any chest pain or shortness of breath. - Objective Vital Signs & Weight: Vital Signs (12 hours) Temp Pulse Resp Pulse Ox 03/27/20 11:11 96.5 F L 03/27/20 08:00 100 03/27/20 07:13 95 03/27/20 07:11 87 12 95 03/27/20 07:10 97.0 F L 03/27/20 00:51 88 12 96 Weight Admit Weight 217 lb 8 oz Weight 3.845 oz Most Recent Monitor Data Heart Rate from ECG 74 NIBP 143/83 NIBP BP-Mean 103 Respiration from ECG 11 SpO2 90 I&O: 03/26/20 03/27/20 03/28/20 06:59 06:59 06:59 Intake Total 915 982 Output Total 225 1300 Balance 690 -318 Result Diagrams: 03/27/20 04:40 03/27/20 04:40 Additional Labs: Accuchecks 03/27/20 03/27/20 03/26/20 11:23 06:54 21:05 POC Glucose 218 H 217 H 216 H 03/26/20 17:05 POC Glucose 179 H EKG Reviewed by me: Yes (Atrial fibrillation on telemetry) Hospitalist ROS - Review of Systems Respiratory: denies: cough, dry, shortness of breath, hemoptysis, SOB with excertion, pleuritic pain, sputum, wheezing, other Cardiovascular: denies: chest pain, palpitations, orthopnea, paroxysmal noc. dyspnea, edema, light headedness, other - Medication Medications: Active Medications Generic Name Dose Route Start Last Admin Trade Name Freq PRN Reason Stop Dose Admin Acetaminophen 650 mg 03/19/20 15:14 03/26/20 18:39 Tylenol PO 650 mg Q6H PRN Administration Headache/Fever Or Mild Pain Albuterol/Ipratropium 3 ml 03/22/20 07:00 03/27/20 07:11 Duoneb EZPAP 3 ml [id number] CECILIA Administration Alprazolam 0.25 mg 03/21/20 07:39 03/27/20 08:30 Xanax PO 0.25 mg TID PRN Administration Anxiety Atorvastatin Calcium 40 mg 03/23/20 21:00 03/26/20 21:01 Lipitor PO 40 mg HS CECILIA Administration Clopidogrel Bisulfate 75 mg 03/21/20 09:00 03/27/20 08:18 Plavix PO 75 mg DAILY CECILIA Administration Digoxin 0.125 mg 03/25/20 20:00 03/25/20 21:14 Digoxin 0.125 Mg Tab PO 0.125 mg Q2DAYS CECILIA Administration Enoxaparin Sodium 80 mg 03/25/20 09:00 03/27/20 08:19 Enoxaparin Sodium 80 Mg/0.8 Ml Syringe SC 80 mg 0900 CECILIA Administration Epoetin Solis-epbx 10,000 unit 03/22/20 11:00 03/26/20 12:52 Retacrit IVP 10,000 unit MoWeFr CECILIA Administration Amiodarone HCl 450 mg/ 259 mls @ 0 mls/hr 03/21/20 13:30 03/27/20 01:40 Miscellaneous Medication 1 IVPB 259 mls each/ Dextrose/Water INF CECILIA Administration Protocol As Directed Insulin Glargine 10 units/ 0.1 mls @ 0 mls/hr 03/27/20 09:00 03/27/20 08:30 Miscellaneous Medication SC 0.1 mls QAM CECILIA Administration Insulin Human Regular 0 units 03/19/20 15:24 03/27/20 11:27 Humulin R SC 6 unit Q4H PRN Administration POST OP SLIDING SCALE Protocol Metoprolol Tartrate 12.5 mg 03/25/20 21:00 03/27/20 08:18 Metoprolol Tartrate 25 Mg Tab PO 12.5 mg BID CECILIA Administration Morphine Sulfate 2 mg 03/19/20 15:14 03/20/20 09:00 Morphine SLOW IVP 2 mg Q15MIN PRN Administration Severe Pain (7-10) Ondansetron HCl 4 mg 03/19/20 15:14 03/19/20 21:59 Zofran IVP 4 mg Q6H PRN Administration Nausea/Vomiting Pantoprazole Sodium 40 mg 03/22/20 09:00 03/27/20 08:18 Protonix PO 40 mg DAILY CECILIA Administration Pregabalin 75 mg 03/21/20 09:00 03/27/20 08:18 Lyrica PO 75 mg BID CECILIA Administration Sodium Chloride 10 ml 03/21/20 09:00 03/27/20 08:19 Flush - Normal Saline IVF 10 ml Q12HR CECILIA Administration Tramadol HCl 100 mg 03/19/20 15:14 03/27/20 11:28 Ultram PO 100 mg Q12H PRN Administration Pain - Exam General Appearance: NAD Neck: supple, no JVD Heart: no gallops, no rubs, irregular Respiratory: no wheezes, no rales Gastrointestinal: soft, non-tender, no guarding, no rigidity Extremities: no cyanosis Hosp A/P (1) Chest pain Code(s): R07.9 - CHEST PAIN, UNSPECIFIED Status: Acute Qualifiers: Ischemic chest pain type: unspecified angina pectoris type (2) Atrial fibrillation with rapid ventricular response Code(s): I48.91 - UNSPECIFIED ATRIAL FIBRILLATION Status: Acute (3) CAD (coronary artery disease) Code(s): I25.10 - ATHSCL HEART DISEASE OF [place] CORONARY ARTERY W/O ANG PCTRS Status: Chronic (4) S/P CABG (coronary artery bypass graft) Code(s): Z95.1 - PRESENCE OF AORTOCORONARY BYPASS GRAFT Status: Acute (5) Chronic combined systolic and diastolic congestive heart failure Code(s): I50.42 - CHRONIC COMBINED SYSTOLIC AND DIASTOLIC HRT FAIL (6) COPD (chronic obstructive pulmonary disease) Status: Chronic (7) DM type 2 (diabetes mellitus, type 2) Status: Chronic Qualifiers: Diabetes mellitus fci insulin use: with fci use Diabetes mellitus complication status: with kidney complications Diabetes mellitus complication detail: with chronic kidney disease Chronic kidney disease stage: stage 3 (moderate) Qualified Code(s): E11.22 - Type 2 diabetes mellitus with diabetic chronic kidney disease; N18.3 - Chronic kidney disease, stage 3 (moderate); Z79.4 - supervisor hydrochloric area (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 of insulin (8) ESRD (end stage renal disease) on dialysis Code(s): N18.6 - END STAGE RENAL DISEASE; Z99.2 - DEPENDENCE ON RENAL DIALYSIS Status: Chronic (9) Urinary retention Code(s): R33.9 - RETENTION OF URINE, UNSPECIFIED Status: Acute (10) HLD (hyperlipidemia) Code(s): E78.5 - HYPERLIPIDEMIA, UNSPECIFIED Status: Chronic (11) HTN (hypertension) Code(s): I10 - ESSENTIAL (PRIMARY) HYPERTENSION Status: Chronic (12) Hypothyroidism Code(s): E03.9 - HYPOTHYROIDISM, UNSPECIFIED Status: Chronic (13) Ischemic cardiomyopathy Code(s): I25.5 - ISCHEMIC CARDIOMYOPATHY Status: Chronic (14) Obesity (BMI 30.0-34.9) Code(s): E66.9 - OBESITY, UNSPECIFIED Status: Chronic - Plan 03/27 Remains on amiodarone drip. On 80 mg Lovenox daily with digoxin and metoprolol. Patient also on Plavix and statins. Will transfer to telemetry if okay with cardiovascular. Nephrology following for maintenance hemodialysis. Patient may need LifeVest at discharge. Cardioversion next week if patient remains in atrial fibrillation. 03/26 Continue amiodarone drip with Lovenox. Continue digoxin and metoprolol. On Plavix and statins. Continue IM monitoring. Hemodialysis per nephrology. Continue other medications as above. Continue physical therapy 03/25 Continue Plavix. Digoxin and metoprolol started today. Continue amiodarone drip. Started on Lovenox 80 mg daily from today. Continue supportive care. Transfer to [facility]. Continue Lipitor. Continue other medications as above. Dialysis per nephrology. 03/24 Continue physical therapy. Continue amiodarone drip. Continue Plavix with statin. Continue physical therapy. Hemodialysis per nephrology. Pain control. Check electrolytes in a.m. 03/23 Remains on amiodarone drip. Continue Critical Care Unit monitoring. Received 2 units of PRBC yesterday. A.m. labs. Continue other medications as above. Continue physical therapy. Continue Plavix. 03/22 Patient currently on amiodarone drip for atrial fibrillation. Continue Plavix. Continue nebulizer treatment. Continue Lyrica for neuropathic pain. Prn morphine. Blood transfusion today. Recheck labs in a.m. Patient received 1 dose of digoxin yesterday a.m. labs 03/21 Continue postoperative care. On low-dose Levophed. Plavix and Lyrica started earlier today. Pain control. Continue Howard catheter. Continue Accu-Cheks. Recheck labs in a.m. Chest x-ray in a.m. Physical therapy consulted 03/20 Continue postoperative care in critical care unit. Continue with insulin drip. Continue Plavix. Pain control. Continue other medications as above. A.m. labs.
--- NOTE | 2020-03-27 13:24 | PRG ---
DATE OF SERVICE: 03/27/2020 SUBJECTIVE: Ms. Mendez is awake. She is sitting in the chair. When I have asked her about pain, she states it is moderate but tolerable. She has not been engaged in a significant ambulation and exercise program since her bypass. She did have dialysis yesterday and states that she has been receiving it ongoing through her tunnel catheter for about 6 months. She has AV fistula in the right upper extremity. She states that it was done several months ago, but the Steri-Strips are new and she states that the esa were just removed. I am not sure that I am getting the full story. Fistula is quite immature with very very faint palpable thrill and bruit with auscultation. PHYSICAL EXAMINATION: VITAL SIGNS: Current blood pressure 102/71, heart rate is 90, saturation 95% on room air. GENERAL: She is awake, sitting in the chair. HEENT: Shows no adenopathy. She has no oral Emily. She has no JVD. She is quite obese and lethargic. LUNGS: Clear to auscultation. HEART: Regular rate and rhythm. I do not hear an audible murmur. Her sternotomy is healing without purulence or erythema. ABDOMEN: Very obese. There is no guarding. EXTREMITIES: Show 1 to 2+ leg edema. She has a fistula site in the right upper extremity as noted above as well as a temporary dialysis catheter. NEUROLOGIC: She is nonfocal. LABORATORY DATA: White count today 6700 with hemoglobin of 10.2, and platelet count of 288,000. Sodium 132, potassium 3.9, chloride 96, BUN is 38 with creatinine of 2.7, glucose ranging from 180 to 250. IMPRESSION: 1. Status post multivessel bypass, slowly recovering. 2. End-stage renal disease, on maintenance hemodialysis. 3. Morbid obesity. PLAN: I have strongly encouraged her to be out of bed and to be active participant in a rehab program. We have talked about fluid restriction and ongoing dialysis. Pulmonary Service will follow remotely. It would appear that she is stable for transfer out of the intensive care unit to telemetry and more aggressive therapy. Job ID: [id number]
[2020-03-27] MEDS: Digoxin 0.125 MG TAB PO SCH (21:34)
[2020-03-27] MEDS: Atorvastatin Calcium 40 MG TAB PO SCH (21:34)
[2020-03-28] MEDS: traMADol HCl 50 MG TAB PO PRN ×2 (02:29→20:20)
[2020-03-28 02:53] LABS: #Basophils 0.1 thou/uL (0.0-0.2); #Eosinphils 0.3 thou/uL (0.0-0.7); #Lymphocytes 1.2 thou/uL (1.20-3.40); #Monocytes 1.2 thou/uL (0.11-0.59); #Neutrophils 5.7 thou/uL (1.40-6.50); %Basophils 0.8 % (0.0-1.0); %Eosinophils 3.7 % (0.0-10.0); %Lymphocytes 13.9 % (21.0-51.0); %Monocytes 14.1 % (0.0-10.0); %Neutrophils 67.5 % (42.0-75.0); Hemoglobin 10.2 g/dL (12.0-16.0); Mean Corpuscular HGB CONC 32.1 g/dL (32.0-36.0); Mean Corpuscular Hemoglobin 29.5 pg (27.0-31.0); Mean Corpuscular Volume 91.9 fL (78.0-98.0); Mean Platelet Volume 8.6 fL (7.4-10.4); Platelet Count 354 thou/uL (130-400); RBC Distribution Width 14.8 % (11.5-14.5); Red Blood Cell (RBC) Count 3.47 mill/uL (4.20-5.40); White Blood Cell (WBC) Count 8.4 thou/uL (4.8-10.8)
[2020-03-28] MEDS: Clopidogrel Bisulfate 75 MG TAB PO SCH (07:49)
[2020-03-28] MEDS: ALPRAZolam 0.25 MG TAB PO PRN ×2 (07:49→18:17)
[2020-03-28] MEDS: Metoprolol Tartrate 25 MG TAB PO SCH ×2 (07:49→20:21)
[2020-03-28] MEDS: Pregabalin 75 MG CAP PO SCH ×2 (07:49→20:21)
[2020-03-28] MEDS: Enoxaparin Sodium 80 MG/0.8 ML SYRINGE SC SCH (07:50)
[2020-03-28] MEDS: Insulin Glargine 10 UNITS in Pre-Filled Syringe 1 EACH SC SCH ×2 (08:39→21:30)
--- NOTE | 2020-03-28 09:44 | PDOC.HOSPP ---
- Subjective Encounter Date: 03/28/20 Encounter Time: 09:15 Subjective: Patient seen and examined for coronary artery disease/CABG. Pain controlled. Denies any chest pain, shortness of breath or palpitations. No fever or chills. - Objective Vital Signs & Weight: Vital Signs (12 hours) Temp Pulse Resp Pulse Ox 03/28/20 07:54 97.4 F L 03/28/20 07:02 93 L 03/28/20 06:57 96 21 H 93 L 03/28/20 00:51 91 13 Weight Admit Weight 217 lb 8 oz Weight 242 lb 8.136 oz Most Recent Monitor Data Heart Rate from ECG 92 NIBP 99/72 NIBP BP-Mean 81 Respiration from ECG 6 SpO2 94 I&O: 03/27/20 03/28/20 03/29/20 06:59 06:59 06:59 Intake Total 982 192 Output Total 1300 240 Balance -318 -48 Result Diagrams: 03/28/20 02:44 03/27/20 04:40 Additional Labs: Accuchecks 03/28/20 03/27/20 03/27/20 06:14 21:23 16:19 POC Glucose 168 H 250 H 254 H 03/27/20 11:23 POC Glucose 218 H EKG Reviewed by me: Yes (Atrial fibrillation on telemetry) Hospitalist ROS - Review of Systems Respiratory: denies: cough, dry, shortness of breath, hemoptysis, SOB with excertion, pleuritic pain, sputum, wheezing, other Cardiovascular: denies: chest pain, palpitations, orthopnea, paroxysmal noc. dyspnea, edema, light headedness, other - Medication Medications: Active Medications Generic Name Dose Route Start Last Admin Trade Name Freq PRN Reason Stop Dose Admin Acetaminophen 650 mg 03/19/20 15:14 03/26/20 18:39 Tylenol PO 650 mg Q6H PRN Administration Headache/Fever Or Mild Pain Albuterol/Ipratropium 3 ml 03/22/20 07:00 03/28/20 06:57 Duoneb EZPAP 3 ml [id number] CECILIA Administration Alprazolam 0.25 mg 03/21/20 07:39 03/28/20 07:49 Xanax PO 0.25 mg TID PRN Administration Anxiety Atorvastatin Calcium 40 mg 03/23/20 21:00 03/27/20 21:34 Lipitor PO 40 mg HS CECILIA Administration Clopidogrel Bisulfate 75 mg 03/21/20 09:00 03/28/20 07:49 Plavix PO 75 mg DAILY CECILIA Administration Digoxin 0.125 mg 03/25/20 20:00 03/27/20 21:34 Digoxin 0.125 Mg Tab PO 0.125 mg Q2DAYS CECILIA Administration Enoxaparin Sodium 80 mg 03/25/20 09:00 03/28/20 07:50 Enoxaparin Sodium 80 Mg/0.8 Ml Syringe SC 80 mg 899 CECILIA Administration Epoetin Solis-epbx 10,000 unit 03/22/20 11:00 03/26/20 12:52 Retacrit IVP 10,000 unit MoWeFr CECILIA Administration Amiodarone HCl 450 mg/ 259 mls @ 0 mls/hr 03/21/20 13:30 03/27/20 01:40 Miscellaneous Medication 1 IVPB 259 mls each/ Dextrose/Water INF CECILIA Administration Protocol As Directed Insulin Glargine 10 units/ 0.1 mls @ 0 mls/hr 03/27/20 09:00 03/28/20 08:39 Miscellaneous Medication SC 0.1 mls QAM CECILIA Administration Insulin Glargine 10 units/ 0.1 mls @ 0 mls/hr 03/27/20 21:00 03/27/20 21:36 Miscellaneous Medication SC 0.1 mls HS CECILIA Administration Insulin Human Regular 0 units 03/19/20 15:24 03/27/20 21:36 Humulin R SC 6 unit Q4H PRN Administration POST OP SLIDING SCALE Protocol Metoprolol Tartrate 12.5 mg 03/25/20 21:00 03/28/20 07:49 Metoprolol Tartrate 25 Mg Tab PO 12.5 mg BID CECILIA Administration Morphine Sulfate 2 mg 03/19/20 15:14 03/20/20 09:00 Morphine SLOW IVP 2 mg Q15MIN PRN Administration Severe Pain (7-10) Ondansetron HCl 4 mg 03/19/20 15:14 03/19/20 21:59 Zofran IVP 4 mg Q6H PRN Administration Nausea/Vomiting Pantoprazole Sodium 40 mg 03/22/20 09:00 03/28/20 07:49 Protonix PO 40 mg DAILY CECILIA Administration Pregabalin 75 mg 03/21/20 09:00 03/28/20 07:49 Lyrica PO 75 mg BID CECILIA Administration Sodium Chloride 10 ml 03/21/20 09:00 03/28/20 07:50 Flush - Normal Saline IVF 10 ml Q12HR CECILIA Administration Tramadol HCl 100 mg 03/19/20 15:14 03/28/20 02:29 Ultram PO 100 mg Q12H PRN Administration Pain - Exam General Appearance: NAD Neck: supple, no JVD Heart: no gallops, irregular Respiratory: no wheezes, no rales Respiratory - other findings: Diminished air entry at bases Gastrointestinal: non-tender, non-distended Extremities: no cyanosis Neurological: no new deficit Hosp A/P (1) Chest pain Code(s): R07.9 - CHEST PAIN, UNSPECIFIED Status: Acute Qualifiers: Ischemic chest pain type: unspecified angina pectoris type (2) Atrial fibrillation with rapid ventricular response Code(s): I48.91 - UNSPECIFIED ATRIAL FIBRILLATION Status: Acute (3) CAD (coronary artery disease) Code(s): I25.10 - ATHSCL HEART DISEASE OF [place] CORONARY ARTERY W/O ANG PCTRS Status: Chronic (4) S/P CABG (coronary artery bypass graft) Code(s): Z95.1 - PRESENCE OF AORTOCORONARY BYPASS GRAFT Status: Acute (5) Chronic combined systolic and diastolic congestive heart failure Code(s): I50.42 - CHRONIC COMBINED SYSTOLIC AND DIASTOLIC HRT FAIL (6) COPD (chronic obstructive pulmonary disease) Status: Chronic (7) DM type 2 (diabetes mellitus, type 2) Status: Chronic Qualifiers: Diabetes mellitus bed bug exterminator insulin use: with group home use Diabetes mellitus complication status: with kidney complications Diabetes mellitus complication detail: with chronic kidney disease Chronic kidney disease stage: stage 3 (moderate) Qualified Code(s): E11.22 - Type 2 diabetes mellitus with diabetic chronic kidney disease; N18.3 - Chronic kidney disease, stage 3 (moderate); Z79.4 - exterminator termite (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 of insulin (8) ESRD (end stage renal disease) on dialysis Code(s): N18.6 - END STAGE RENAL DISEASE; Z99.2 - DEPENDENCE ON RENAL DIALYSIS Status: Chronic (9) Urinary retention Code(s): R33.9 - RETENTION OF URINE, UNSPECIFIED Status: Acute (10) HLD (hyperlipidemia) Code(s): E78.5 - HYPERLIPIDEMIA, UNSPECIFIED Status: Chronic (11) HTN (hypertension) Code(s): I10 - ESSENTIAL (PRIMARY) HYPERTENSION Status: Chronic (12) Hypothyroidism Code(s): E03.9 - HYPOTHYROIDISM, UNSPECIFIED Status: Chronic (13) Ischemic cardiomyopathy Code(s): I25.5 - ISCHEMIC CARDIOMYOPATHY Status: Chronic (14) Obesity (BMI 30.0-34.9) Code(s): E66.9 - OBESITY, UNSPECIFIED Status: Chronic - Plan 03/28 Patient remains in atrial fibrillationcontinue amiodarone drip. Continue digoxin along with metoprolol for rate control. Continue Lovenox 80 mg daily. Continue Plavix with statins. Advised patient to participate in physical therapy. Recheck labs in a.m. Keep patient n.p.o. past midnight for possible cardioversion in a.m. 03/27 Remains on amiodarone drip. On 80 mg Lovenox daily with digoxin and metoprolol. Patient also on Plavix and statins. Will transfer to telemetry if okay with cardiovascular. Nephrology following for maintenance hemodialysis. Patient may need LifeVest at discharge. Cardioversion next week if patient remains in atrial fibrillation. 03/26 Continue amiodarone drip with Lovenox. Continue digoxin and metoprolol. On Plavix and statins. Continue IMCU monitoring. Hemodialysis per nephrology. Continue other medications as above. Continue physical therapy 03/25 Continue Plavix. Digoxin and metoprolol started today. Continue amiodarone drip. Started on Lovenox 80 mg daily from today. Continue supportive care. Transfer to [facility]. Continue Lipitor. Continue other medications as above. Dialysis per nephrology. 03/24 Continue physical therapy. Continue amiodarone drip. Continue Plavix with statin. Continue physical therapy. Hemodialysis per nephrology. Pain control. Check electrolytes in a.m. 03/23 Remains on amiodarone drip. Continue Critical Care Unit monitoring. Received 2 units of PRBC yesterday. A.m. labs. Continue other medications as above. Cont inue physical therapy. Continue Plavix. 03/22 Patient currently on amiodarone drip for atrial fibrillation. Continue Plavix. Continue nebulizer treatment. Continue Lyrica for neuropathic pain. Prn morphine. Blood transfusion today. Recheck labs in a.m. Patient received 1 dose of digoxin yesterday a.m. labs 03/21 Continue postoperative care. On low-dose Levophed. Plavix and Lyrica started earlier today. Pain control. Continue Howard catheter. Continue Accu-Cheks. Recheck labs in a.m. Chest x-ray in a.m. Physical therapy consulted 03/20 Continue postoperative care in critical care unit. Continue with insulin drip. Continue Plavix. Pain control. Continue other medications as above. A.m. labs.
--- NOTE | 2020-03-28 12:10 | PRG ---
DATE OF SERVICE: 03/28/2020 SUBJECTIVE: Ms. Mendez had a fairly uncomplicated night. She has been sitting to the side of the bed, but not yet out today. She is globally weak. She denies any chest pain. She has had no nausea, vomiting, and has had no fevers or chills. There is some conversation about possible JUVE. PHYSICAL EXAMINATION: VITAL SIGNS: Blood pressure 125/105 to a low of 99/72, heart rate is in the mid 90s. She is afebrile. Saturation 94%. GENERAL: She is awake, obese, but not in acute respiratory distress. She has no JVD. LUNGS: Show bronchial breath sounds without wheezing or rales. HEART: Regular rate and rhythm. There is grade 1 murmur. ABDOMEN: Quite obese. She has 2 to 3+ lower extremity edema. LABORATORY DATA: White count 8400, hemoglobin is 10.2, platelet count 354,000. IMPRESSION: 1. Status post bypass, recovering. 2. End-stage renal disease with maintenance hemodialysis. 3. Global weakness. 4. Morbid obesity. PLAN: 1. She will have dialysis based on indications and recommendations of Nephrology. 2. There has been some discussion about a possible JUVE. 3. I feel that she needs aggressive physical therapy with out of bed activities. 4. She should be able to move from the step-down unit to the telemetry or the floor fairly soon. 5. I think that she probably is going to benefit from a short stay in a rehab facility. Job ID: [id number]
--- NOTE | 2020-03-28 12:35 | PRG ---
DATE OF SERVICE: 03/28/2020 SUBJECTIVE: Patient was seen and examined at bedside and overnight events noted. Patient denies any shortness of breath or chest pain or palpitation. No history of nausea or vomiting or diarrhea or fever or chills or cramps. OBJECTIVE: GENERAL: This is a well-built female, in no apparent distress. VITAL SIGNS: Temperature 97.6. Heart rate 97. Respiratory rate 18. Blood pressure 125/105. HEENT: Atraumatic, normocephalic. Oral mucosa is moist NECK: Supple. CARDIOVASCULAR: S1, S2 heard. Rate and rhythm regular. RESPIRATORY: Clear to auscultation. GASTROINTESTINAL: Abdomen is soft. MUSCULOSKELETAL: No tenderness. No edema. DERMATOLOGIC: No skin rash. NEUROLOGIC: Alert and awake and oriented X3. No focal neurologic deficits. Moving all the extremities. PSYCHIATRIC: Mood and affect normal. LABORATORY DATA: Not done today. ASSESSMENT AND PLAN: 1. End-stage renal disease. Continue dialysis as tolerated. 2. Edema, controlled. 3. History of hypertension. 4. Cardiorenal syndrome. 5. Recent coronary artery bypass grafting surgery. Check labs in the morning, dialysis as tolerated. Job ID: [id number]
[2020-03-28] MEDS: Insulin Regular 300 UNITS/3 ML VIAL SC PRN (18:19)
[2020-03-28] MEDS: Amiodarone 200 MG TAB PO SCH (20:21)
[2020-03-28] MEDS: Atorvastatin Calcium 40 MG TAB PO SCH (20:21)
[2020-03-28] MEDS: Apixaban 2.5 MG TAB PO SCH (21:30)
[2020-03-29] MEDS: Acetaminophen 325 MG TAB PO PRN ×2 (00:37→21:58)
[2020-03-29 04:39] LABS: Anion Gap 16 mmol/L (10-20); BUN (Urea Nitrogen) 56 mg/dL (9.8-20.1); Calc. Creatinine Clearance 30 mL/min (70-130); Calcium 8.4 mg/dL (7.8-10.44); Carbon Dioxide 22 mmol/L (23-31); Chloride 93 mmol/L (98-107); Estimated GFR-MDRD 14; Glucose 139 mg/dL (80-115); Potassium 4.4 mmol/L (3.5-5.1); Sodium 127 mmol/L (136-145)
[2020-03-29] MEDS: Polyethylene Glycol 3350 17 GM Packet PO SCH (09:00)
[2020-03-29] MEDS: Insulin Glargine 10 UNITS in Pre-Filled Syringe 1 EACH SC SCH ×2 (09:00→22:00)
[2020-03-29] MEDS: Metoprolol Tartrate 25 MG TAB PO SCH ×2 (09:00→21:58)
[2020-03-29] MEDS: Amiodarone 200 MG TAB PO SCH ×2 (09:00→21:59)
[2020-03-29] MEDS ORDERED: Heparin 10,000 UNITS/ 10 ML VIAL ONE (10:07)
--- NOTE | 2020-03-29 10:41 | PRG ---
DATE OF SERVICE: 03/29/2020 SUBJECTIVE: A 64-year-old female, being seen for end-stage renal disease. The patient denied nausea, vomiting, or chest pain. OBJECTIVE: GENERAL: The patient is awake and alert. VITAL SIGNS: Afebrile, pulse 75, breathing at 16, blood pressure 114/72. HEENT: Head normocephalic and atraumatic. Eyes intact, no ulcers. Nose intact, no ulcers. Ears intact, no ulcers. NECK: Supple. No JVD. CHEST: Symmetrical and clear. CARDIOVASCULAR: Shows S1 and S2, no rub, no murmur. GASTROINTESTINAL: Abdomen is soft, bowel sounds positive. EXTREMITIES: Show no edema or ulcers. SKIN: Shows no rash or petechiae. MUSCULOSKELETAL: Shows no joint swelling or stiffness. GENITOURINARY: Shows no Howard or CVA tenderness. NEUROLOGIC: Motor intact. Cranial nerves intact. LABORATORY DATA: Show hemoglobin 10.2. ASSESSMENT AND RECOMMENDATIONS: 1. Stage 6 chronic kidney disease. Plan dialysis. 2. Hypertension, stable. 3. Anemia, stable. 4. Medication based on GFR, appropriate. Job ID: [id number]
[2020-03-29] MEDS: EPOETIN ALFA-EPBX (ESRD) 10,000 UNIT/ML VIAL IVP SCH (11:00)
[2020-03-29] MEDS ORDERED: Apixaban 2.5 MG TAB PO SCH (12:00)
[2020-03-29] MEDS: Pregabalin 75 MG CAP PO SCH ×2 (12:48→21:59)
[2020-03-29] MEDS ORDERED: PROPOFOL 0 ML ONE (13:47)
[2020-03-29] MEDS ORDERED: PROPOFOL 20 ML ONE (13:48)
[2020-03-29] MEDS ORDERED: Ketamine 50 MG/ML (10ML VIAL) ONE (13:49)
[2020-03-29] MEDS ORDERED: Phenylephrine 10 MG/ML VIAL ONE (14:06)
[2020-03-29] MEDS ORDERED: Benzocaine 20% Spray 60 ML CAN ONE (14:29)
--- NOTE | 2020-03-29 16:04 | PDOC.HOSPP ---
- Subjective Encounter Date: 03/29/20 Encounter Time: 16:02 Subjective: no sob, chest pain - Objective Vital Signs & Weight: Vital Signs (12 hours) Temp Pulse Resp BP Pulse Ox 03/29/20 12:36 97.2 F L 98 18 130/67 94 L 03/29/20 08:25 97.2 F L 104 H 18 128/64 97 03/29/20 06:54 93 L 03/29/20 06:52 100 16 93 L 03/29/20 05:45 97.9 F 102 H 20 114/72 96 Weight Admit Weight 217 lb 8 oz Weight 242 lb 3.2 oz Most Recent Monitor Data Heart Rate from ECG 93 NIBP 115/50 NIBP BP-Mean 71 Respiration from ECG 13 SpO2 95 I&O: 03/28/20 03/29/20 03/30/20 06:59 06:59 06:59 Intake Total 192 480 Output Total 240 550 Balance -48 -70 Result Diagrams: 03/28/20 02:44 03/29/20 03:39 Additional Labs: Accuchecks 03/29/20 03/28/20 03/28/20 05:51 21:59 17:36 POC Glucose 131 H 159 H 159 H 03/25/20 03/25/20 20:50 11:42 POC Glucose 220 H 205 H Hospitalist ROS - Medication Medications: Active Medications Generic Name Dose Route Start Last Admin Trade Name Freq PRN Reason Stop Dose Admin Acetaminophen 650 mg 03/19/20 15:14 03/29/20 00:37 Tylenol PO 650 mg Q6H PRN Administration Headache/Fever Or Mild Pain Albuterol/Ipratropium 3 ml 03/22/20 07:00 03/29/20 12:26 Duoneb EZPAP Not Given [id number] CECILIA Alprazolam 0.25 mg 03/21/20 07:39 03/28/20 18:17 Xanax PO 0.25 mg TID PRN Administration Anxiety Amiodarone HCl 200 mg 03/28/20 21:00 03/28/20 20:21 Amiodarone 200 Mg Tab PO 200 mg BID CECILIA Administration Atorvastatin Calcium 40 mg 03/23/20 21:00 03/28/20 20:21 Lipitor PO 40 mg HS CECILIA Administration Clopidogrel Bisulfate 75 mg 03/21/20 09:00 03/28/20 07:49 Plavix PO 75 mg DAILY CECILIA Administration Digoxin 0.125 mg 03/25/20 20:00 03/27/20 21:34 Digoxin 0.125 Mg Tab PO 0.125 mg Q2DAYS CECILIA Administration Epoetin Solis-epbx 10,000 unit 03/22/20 11:00 03/26/20 12:52 Retacrit IVP 10,000 unit MoWeFr CECILIA Administration Insulin Glargine 10 units/ 0.1 mls @ 0 mls/hr 03/27/20 09:00 03/28/20 08:39 Miscellaneous Medication SC 0.1 mls QAM CECILIA Administration Insulin Glargine 10 units/ 0.1 mls @ 0 mls/hr 03/27/20 21:00 03/28/20 21:30 Miscellaneous Medication SC 0.1 mls HS CECILIA Administration Insulin Human Regular 0 units 03/19/20 15:24 03/28/20 18:19 Humulin R SC 3 unit Q4H PRN Administration POST OP SLIDING SCALE Protocol Metoprolol Tartrate 12.5 mg 03/25/20 21:00 03/28/20 20:21 Metoprolol Tartrate 25 Mg Tab PO 12.5 mg BID CECILIA Administration Ondansetron HCl 4 mg 03/19/20 15:14 03/19/20 21:59 Zofran IVP 4 mg Q6H PRN Administration Nausea/Vomiting Pantoprazole Sodium 40 mg 03/22/20 09:00 03/28/20 07:49 Protonix PO 40 mg DAILY CECILIA Administration Pregabalin 75 mg 03/21/20 09:00 03/29/20 12:48 Lyrica PO 75 mg BID CECILIA Administration Sodium Chloride 10 ml 03/21/20 09:00 03/28/20 20:22 Flush - Normal Saline IVF 10 ml Q12HR CECILIA Administration - Exam General Appearance: awake alert Neck: no JVD Heart: RRR, no murmur Respiratory: CTAB Gastrointestinal: soft, normal bowel sounds Extremities: 1+ LE edema Hosp A/P (1) Atrial fibrillation with rapid ventricular response Code(s): I48.91 - UNSPECIFIED ATRIAL FIBRILLATION Status: Acute (2) Chest pain Code(s): R07.9 - CHEST PAIN, UNSPECIFIED Status: Acute Qualifiers: Ischemic chest pain type: unspecified angina pectoris type (3) S/P CABG (coronary artery bypass graft) Code(s): Z95.1 - PRESENCE OF AORTOCORONARY BYPASS GRAFT Status: Acute (4) CAD (coronary artery disease) Code(s): I25.10 - ATHSCL HEART DISEASE OF [place] CORONARY ARTERY W/O ANG PCTRS Status: Chronic Qualifiers: Coronary Disease-Associated Artery/Lesion type: [place] artery [place] vs. transplanted heart: [place] heart Associated angina: without angina Qualified Code(s): I25.10 - Atherosclerotic heart disease of [place] coronary artery without angina pectoris (5) COPD (chronic obstructive pulmonary disease) Status: Chronic Qualifiers: Emphysema type: unspecified (6) Chronic combined systolic and diastolic congestive heart failure Code(s): I50.42 - CHRONIC COMBINED SYSTOLIC AND DIASTOLIC HRT FAIL Status: Chronic (7) DM type 2 (diabetes mellitus, type 2) Status: Chronic Qualifiers: Diabetes mellitus terminal make up operator insulin use: with terminal make up operator use Diabetes mellitus complication status: with kidney complications Diabetes mellitus complication detail: with chronic kidney disease Chronic kidney disease stage: stage 3 (moderate) Qualified Code(s): E11.22 - Type 2 diabetes mellitus with diabetic chronic kidney disease; N18.3 - Chronic kidney disease, stage 3 (moderate); Z79.4 - terminal make up operator (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 of insulin (8) ESRD (end stage renal disease) on dialysis Code(s): N18.6 - END STAGE RENAL DISEASE; Z99.2 - DEPENDENCE ON RENAL DIALYSIS Status: Chronic (9) HLD (hyperlipidemia) Code(s): E78.5 - HYPERLIPIDEMIA, UNSPECIFIED Status: Chronic (10) HTN (hypertension) Code(s): I10 - ESSENTIAL (PRIMARY) HYPERTENSION Status: Chronic Qualifiers: Hypertension type: essential hypertension Qualified Code(s): I10 - Essential (primary) hypertension (11) Hypothyroidism Code(s): E03.9 - HYPOTHYROIDISM, UNSPECIFIED Status: Chronic Qualifiers: Hypothyroidism type: unspecified Qualified Code(s): E03.9 - Hypothyroidism, unspecified (12) Ischemic cardiomyopathy Code(s): I25.5 - ISCHEMIC CARDIOMYOPATHY Status: Chronic - Plan post successful cardioversion of atrial fib cont eliquis, plavix cont accu/ss/glargine cont statin cont b-laura
[2020-03-29] MEDS: Clopidogrel Bisulfate 75 MG TAB PO SCH (17:49)
[2020-03-29] MEDS: ALPRAZolam 0.25 MG TAB PO PRN (17:50)
[2020-03-29] MEDS: Apixaban 2.5 MG TAB PO SCH ×2 (18:57→21:58)
[2020-03-29] MEDS: Atorvastatin Calcium 40 MG TAB PO SCH (21:59)
[2020-03-29] MEDS: Digoxin 0.125 MG TAB PO SCH (22:00)
[2020-03-30] MEDS: Amiodarone 200 MG TAB PO SCH ×2 (09:24→20:35)
[2020-03-30] MEDS: Apixaban 2.5 MG TAB PO SCH ×2 (09:24→20:33)
[2020-03-30] MEDS: Metoprolol Tartrate 25 MG TAB PO SCH ×2 (09:24→20:34)
[2020-03-30] MEDS: ALPRAZolam 0.25 MG TAB PO PRN ×2 (09:24→20:37)
[2020-03-30] MEDS: Pregabalin 75 MG CAP PO SCH ×2 (09:24→20:34)
[2020-03-30] MEDS: Clopidogrel Bisulfate 75 MG TAB PO SCH (09:25)
[2020-03-30] MEDS: Polyethylene Glycol 3350 17 GM Packet PO SCH (10:34)
[2020-03-30] MEDS: Insulin Glargine 10 UNITS in Pre-Filled Syringe 1 EACH SC SCH ×2 (10:41→20:37)
--- NOTE | 2020-03-30 11:12 | PDOC.HOSPP ---
- Subjective Encounter Date: 03/30/20 Encounter Time: 11:08 Subjective: "tired" - Objective Vital Signs & Weight: Vital Signs (12 hours) Temp Pulse Resp BP Pulse Ox 03/30/20 07:16 93 L 03/30/20 07:14 77 20 93 L 03/30/20 05:07 98.1 F 75 16 123/56 L 94 L 03/30/20 00:36 97 16 93 L Weight Admit Weight 217 lb 8 oz Weight 244 lb 7.882 oz Most Recent Monitor Data Heart Rate from ECG 93 NIBP 115/50 NIBP BP-Mean 71 Respiration from ECG 13 SpO2 95 I&O: 03/29/20 03/30/20 03/31/20 06:59 06:59 06:59 Intake Total 480 720 Output Total 550 325 Balance -70 395 Result Diagrams: 03/28/20 02:44 03/29/20 03:39 Additional Labs: Accuchecks 03/30/20 03/29/20 03/29/20 05:44 20:40 17:18 POC Glucose 155 H 113 H 92 03/25/20 03/25/20 20:50 11:42 POC Glucose 220 H 205 H Hospitalist ROS - Medication Medications: Active Medications Generic Name Dose Route Start Last Admin Trade Name Freq PRN Reason Stop Dose Admin Acetaminophen 650 mg 03/19/20 15:14 03/29/20 21:58 Tylenol PO 650 mg Q6H PRN Administration Headache/Fever Or Mild Pain Albuterol/Ipratropium 3 ml 03/22/20 07:00 03/30/20 07:14 Duoneb EZPAP 3 ml Q6OK-VF CECILIA Administration Alprazolam 0.25 mg 03/21/20 07:39 03/30/20 09:24 Xanax PO 0.25 mg TID PRN Administration Anxiety Amiodarone HCl 200 mg 03/28/20 21:00 03/30/20 09:24 Amiodarone 200 Mg Tab PO 200 mg BID CECILIA Administration Apixaban 5 mg 03/29/20 21:00 03/30/20 09:24 Apixaban 2.5 Mg Tab PO 5 mg BID CECILIA Administration Atorvastatin Calcium 40 mg 03/23/20 21:00 03/29/20 21:59 Lipitor PO 40 mg HS CECILIA Administration Clopidogrel Bisulfate 75 mg 03/21/20 09:00 03/30/20 09:25 Plavix PO 75 mg DAILY CECILIA Administration Digoxin 0.125 mg 03/25/20 20:00 03/29/20 22:00 Digoxin 0.125 Mg Tab PO 0.125 mg Q2DAYS CECILIA Administration Epoetin Solis-epbx 10,000 unit 03/22/20 11:00 03/29/20 11:00 Retacrit IVP Not Given MoWeFr CECILIA Insulin Glargine 10 units/ 0.1 mls @ 0 mls/hr 03/27/20 09:00 03/30/20 10:41 Miscellaneous Medication SC 0.1 mls QAM CECILIA Administration Insulin Glargine 10 units/ 0.1 mls @ 0 mls/hr 03/27/20 21:00 03/29/20 22:00 Miscellaneous Medication SC Not Given HS CECILIA Insulin Human Regular 0 units 03/19/20 15:24 03/28/20 18:19 Humulin R SC 3 unit Q4H PRN Administration POST OP SLIDING SCALE Protocol Metoprolol Tartrate 12.5 mg 03/25/20 21:00 03/30/20 09:24 Metoprolol Tartrate 25 Mg Tab PO 12.5 mg BID CECILIA Administration Ondansetron HCl 4 mg 03/19/20 15:14 03/19/20 21:59 Zofran IVP 4 mg Q6H PRN Administration Nausea/Vomiting Pantoprazole Sodium 40 mg 03/22/20 09:00 03/30/20 09:24 Protonix PO 40 mg DAILY CECILIA Administration Polyethylene Glycol 17 gm 03/29/20 09:00 03/30/20 10:34 Polyethylene Glycol 3350 17 Gm Packet PO Not Given DAILY CECILIA Pregabalin 75 mg 03/21/20 09:00 03/30/20 09:24 Lyrica PO 75 mg BID CECILIA Administration Sodium Chloride 10 ml 03/21/20 09:00 03/30/20 10:34 Flush - Normal Saline IVF Not Given Q12HR CECILIA - Exam General Appearance: awake alert Neck: no JVD Heart: RRR, no murmur Respiratory: CTAB Respiratory - other findings: healing median sternotomy incision Gastrointestinal: soft, non-tender, normal bowel sounds Extremities: 1+ LE edema Hosp A/P (1) Atrial fibrillation with rapid ventricular response Code(s): I48.91 - UNSPECIFIED ATRIAL FIBRILLATION Status: Acute (2) Chest pain Code(s): R07.9 - CHEST PAIN, UNSPECIFIED Status: Acute Qualifiers: Ischemic chest pain type: unspecified angina pectoris type (3) S/P CABG (coronary artery bypass graft) Code(s): Z95.1 - PRESENCE OF AORTOCORONARY BYPASS GRAFT Status: Acute (4) CAD (coronary artery disease) Code(s): I25.10 - ATHSCL HEART DISEASE OF [place] CORONARY ARTERY W/O ANG PCTRS Status: Chronic Qualifiers: Coronary Disease-Associated Artery/Lesion type: [place] artery [place] vs. transplanted heart: [place] heart Associated angina: without angina Qualified Code(s): I25.10 - Atherosclerotic heart disease of [place] coronary artery without angina pectoris (5) COPD (chronic obstructive pulmonary disease) Status: Chronic Qualifiers: Emphysema type: unspecified (6) Chronic combined systolic and diastolic congestive heart failure Code(s): I50.42 - CHRONIC COMBINED SYSTOLIC AND DIASTOLIC HRT FAIL Status: Chronic (7) DM type 2 (diabetes mellitus, type 2) Status: Chronic Qualifiers: Diabetes mellitus fpc insulin use: with fpc use Diabetes mellitus complication status: with kidney complications Diabetes mellitus complication detail: with chronic kidney disease Chronic kidney disease stage: stage 3 (moderate) Qualified Code(s): E11.22 - Type 2 diabetes mellitus with diabetic chronic kidney disease; N18.3 - Chronic kidney disease, stage 3 (moderate); Z79.4 - terminal press operator (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 of insulin (8) ESRD (end stage renal disease) on dialysis Code(s): N18.6 - END STAGE RENAL DISEASE; Z99.2 - DEPENDENCE ON RENAL DIALYSIS Status: Chronic (9) HLD (hyperlipidemia) Code(s): E78.5 - HYPERLIPIDEMIA, UNSPECIFIED Status: Chronic (10) HTN (hypertension) Code(s): I10 - ESSENTIAL (PRIMARY) HYPERTENSION Status: Chronic Qualifiers: Hypertension type: essential hypertension Qualified Code(s): I10 - Essential (primary) hypertension (11) Hypothyroidism Code(s): E03.9 - HYPOTHYROIDISM, UNSPECIFIED Status: Chronic Qualifiers: Hypothyroidism type: unspecified Qualified Code(s): E03.9 - Hypothyroidism, unspecified (12) Ischemic cardiomyopathy Code(s): I25.5 - ISCHEMIC CARDIOMYOPATHY Status: Chronic - Plan cont eliquis, plavix cont accu/ss/glargine cont statin cont b-laura SNF pending
--- NOTE | 2020-03-30 11:47 | PRG ---
DATE OF SERVICE: 03/30/2020 SUBJECTIVE: A 64-year-old female, being seen for end-stage renal disease. The patient denied nausea, vomiting, or chest pain. PHYSICAL EXAMINATION: General: The patient is awake and alert. VITAL SIGNS: Afebrile, pulse 93, breathing 16, blood pressure 123/56. HEENT: Head normocephalic and atraumatic. Eyes intact, no ulcers. Nose intact, no ulcers. Ears intact, no ulcers. Neck: Supple. No JVD. Chest: Symmetrical and clear. Cardiovascular: Shows S1 and S2, no rub, no murmur. Gastrointestinal: Abdomen is soft, bowel sounds positive. Extremities: Show no edema or ulcers. Skin: Shows no rash or petechiae. Musculoskeletal: Shows no joint swelling or stiffness. Genitourinary: Shows no Howard or CVA tenderness. Neurologic: Motor intact. Cranial nerves intact. General: Physical examination. LABORATORY DATA: Reviewed. ASSESSMENT AND PLAN: 1. Stage 6 chronic kidney disease, plan dialysis tomorrow. 2. Hypertension, stable. 3. Anemia, stable. 4. Medication based on GFR, appropriate. Job ID: [id number]
--- NOTE | 2020-03-30 13:08 | CCLSPC ---
PROCEDURE PERFORMED: Transesophageal echo. SUMMARY: Ms. Mendez is having transesophageal echo for pre-evaluation of cardioversion. She has postoperative atrial fibrillation. She had sedation from the Anesthesiology Department. Please see their notes for details. After adequate sedation was achieved, transesophageal probe was inserted into the mouth and into the esophagus. Multiplanar views were then obtained. FINDINGS: Left ventricle appears to be mildly dilated. EF is reduced at about 35%. Left atrium is moderately to severely dilated. Left atrial appendage is a small appendage with reduced velocities. No evidence of mass or thrombus. Right atrium is dilated. The right ventricle is normal size with normal systolic function. Aortic valve is sclerotic, but opens well. No stenosis. Mild mitral regurgitation. Mild tricuspid regurgitation. CONCLUSIONS: 1. Reduced EF at around 35%. 2. Biatrial enlargement. 3. Left atrial appendage is small with reduced velocities but no evidence of mass or thrombus. Job ID: [id number]
--- NOTE | 2020-03-30 13:10 | CCLSPC ---
PROCEDURE PERFORMED: Direct current cardioversion. SUMMARY: Mrs. Mendez is a 64-year-old white female, who comes to the procedural area for a planned cardioversion. She was cleared from thrombus and left atrial appendage by JUVE, please see notes for details. The Anesthesiology Department provided with sedation for the patient. Please see their notes for details. After adequate sedation was achieved, one single synchronized shock was delivered at 200 joules successfully converting from atrial fibrillation to sinus rhythm. The patient tolerated the procedure well. RECOMMENDATIONS: 1. Continue Eliquis at 5 mg b.i.d. 2. Continue low-dose beta laura. Job ID: [id number]
[2020-03-30 13:57] VITALS: BMI 37.1
--- NOTE | 2020-03-30 17:09 | PDOC.CPN ---
- Subjective Date: 03/30/20 Time: 17:08 Interval history: No new issues. Remains in sinus. - Review of Systems General: denies: fever/chills, weight/appetite/sleep changes, night sweats, fatigue Respiratory: denies: cough, congestion, shortness of breath, exercise intolerance Cardiovascular: denies: chest pain, palpitation, edema, paroxysmal nocturnal dyspnea, orthopnea Gastrointestinal: denies: nausea, vomiting, diarrhea, constipation, abd pain, GI bleeding Musculoskeletal: reports: pain. denies: tenderness, stiffness, swelling, arthritis/arthralgias Neurological: denies: numbness, syncope, seizure, weakness - Objective Allergies/Adverse Reactions: Allergies Allergy/AdvReac Type Severity Reaction Status Date / Time adhesive tape Allergy Verified 02/27/20 11:07 aspirin Allergy Verified 02/27/20 11:07 latex Allergy Verified 02/27/20 11:07 meperidine [From Demerol] Allergy Verified 02/27/20 11:07 morphine Allergy Verified 02/27/20 11:07 lace Allergy Uncoded 02/27/20 11:07 Visit Medications: Current Medications Acetaminophen (Tylenol) 650 mg PO Q6H PRN PRN Reason: Headache/Fever Or Mild Pain Last Admin: 03/29/20 21:58 Dose: 650 mg Documented by: Albuterol/Ipratropium (Duoneb) 3 ml EZPAP [id number] [facility] Last Admin: 03/30/20 12:34 Dose: 3 ml Documented by: Alprazolam (Xanax) 0.25 mg PO TID PRN PRN Reason: Anxiety Last Admin: 03/30/20 09:24 Dose: 0.25 mg Documented by: Amiodarone HCl (Amiodarone 200 Mg Tab) 200 mg PO BID [facility] Last Admin: 03/30/20 09:24 Dose: 200 mg Documented by: Apixaban (Apixaban 2.5 Mg Tab) 5 mg PO BID [facility] Last Admin: 03/30/20 09:24 Dose: 5 mg Documented by: Atorvastatin Calcium (Lipitor) 40 mg PO HS [facility] Last Admin: 03/29/20 21:59 Dose: 40 mg Documented by: Bisacodyl (Dulcolax) 10 mg PO Q12H PRN PRN Reason: Constipation Bisacodyl (Dulcolax) 10 mg [place] Q12H PRN PRN Reason: Constipation Clopidogrel Bisulfate (Plavix) 75 mg PO DAILY [facility] Last Admin: 03/30/20 09:25 Dose: 75 mg Documented by: Dextrose/Water (Dextrose 50%) 25 gm SLOW IVP PRN PRN PRN Reason: PER HYPOGLYCEMIC PROTOCOL Digoxin (Digoxin 0.125 Mg Tab) 0.125 mg PO Q2DAYS [facility] Last Admin: 03/29/20 22:00 Dose: 0.125 mg Documented by: Epoetin Solis-epbx (Retacrit) 10,000 unit IVP MoWeFr [facility] Last Admin: 03/29/20 11:00 Dose: Not Given Documented by: Glucagon (Glucagon) 1 mg SC PRN PRN PRN Reason: PER HYPOGLYCEMIC PROTOCOL Guaifenesin/Dextromethorphan (Robitussin Dm) 15 ml PO Q4H PRN PRN Reason: Cough Hydralazine HCl (Apresoline) 10 mg SLOW IVP Q6H PRN PRN Reason: To Maintain SBP< 140mmHG Dextrose/Water (D5w) 1,000 mls @ 0 mls/hr IV INF PRN PRN Reason: PRN HYPOGLYCEMIC PROTOCOL Insulin Glargine 10 units/ (Miscellaneous Medication) 0.1 mls @ 0 mls/hr SC QAM [facility] Last Admin: 03/30/20 10:41 Dose: 0.1 mls Documented by: Insulin Glargine 10 units/ (Miscellaneous Medication) 0.1 mls @ 0 mls/hr SC HS [facility] Last Admin: 03/29/20 22:00 Dose: Not Given Documented by: Insulin Human Regular (Humulin R) 0 units SC Q4H PRN; Protocol PRN Reason: POST OP SLIDING SCALE Last Admin: 03/28/20 18:19 Dose: 3 unit Documented by: Metoprolol Tartrate (Metoprolol Tartrate 25 Mg Tab) 12.5 mg PO BID [facility] Last Admin: 03/30/20 09:24 Dose: 12.5 mg Documented by: Ondansetron HCl (Zofran) 4 mg IVP Q6H PRN PRN Reason: Nausea/Vomiting Last Admin: 03/19/20 21:59 Dose: 4 mg Documented by: Pantoprazole Sodium (Protonix) 40 mg PO DAILY [facility] Last Admin: 03/30/20 09:24 Dose: 40 mg Documented by: Polyethylene Glycol (Polyethylene Glycol 3350 17 Gm Packet) 17 gm PO DAILY [facility] Last Admin: 03/30/20 10:34 Dose: Not Given Documented by: Pregabalin (Lyrica) 75 mg PO BID [facility] Last Admin: 03/30/20 09:24 Dose: 75 mg Documented by: Sodium Chloride (Flush - Normal Saline) 10 ml IVF Q12HR [facility] Last Admin: 03/30/20 10:34 Dose: Not Given Documented by: Sodium Chloride (Flush - Normal Saline) 10 ml IVF PRN PRN PRN Reason: Saline Flush Vital Signs & Weight: Vital Signs Temp Pulse Pulse Resp BP BP Pulse Ox 03/30/20 12:34 80 20 99 03/30/20 11:59 95 20 135/64 95 03/30/20 09:50 83 130/62 03/30/20 08:00 98.6 F 82 17 124/63 100 03/30/20 07:16 93 L 03/30/20 07:14 77 20 93 L Admit Weight 217 lb 8 oz Weight 244 lb 7.882 oz - Physical Exam General: alert & oriented x3 HEENT: mucus membranes moist Neck: supple neck Cardiac: regular rate and rhythm Lungs: normal breath sounds Neuro: grossly intact Abdomen: active bowel sounds Extremities: no edema Skin: clear Musculoskeletal: normal range of motion - Labs Result Diagrams: 03/28/20 02:44 03/29/20 03:39 Troponin/CKMB Troponin I 0.065 ng/mL (< 0.028) H 03/12/20 10:01 - Telemetry Sinus rhythms and dysrhythmias: sinus rhythm - Assessment/Plan Assessment/Plan: 1. Ischemic CM EF at 28% 2. CAD 3. ESRD 4. Bed bugs 2 months ago, treated at home per her report. 5. In stent re stenosis recurrent to LAD and severe RCA disease. 6. Post op afib. s/p JUVE/Cardioversion yesterday. Now in sinus. 7. S/P CABG. PLAN: - ASA/Statin. - HD per nephrology - Continue amiodarone PO load at 200 mg twice a day for 5 more days then 200 mg daily. - Full anticoagulation with Eliquis for at least one month. - Remains in sinus after DCCV. - Lifevest before discharge.
[2020-03-30] MEDS: Atorvastatin Calcium 40 MG TAB PO SCH (20:34)
[2020-03-30] MEDS: Acetaminophen 325 MG TAB PO PRN (20:34)
[2020-03-31 04:24] LABS: Anion Gap 15 mmol/L (10-20); BUN (Urea Nitrogen) 54 mg/dL (9.8-20.1); Calc. Creatinine Clearance 36 mL/min (70-130); Calcium 8.2 mg/dL (7.8-10.44); Carbon Dioxide 22 mmol/L (23-31); Chloride 98 mmol/L (98-107); Estimated GFR-MDRD 17; Glucose 190 mg/dL (80-115); Potassium 4.3 mmol/L (3.5-5.1); Sodium 131 mmol/L (136-145)
[2020-03-31] MEDS: Insulin Regular 300 UNITS/3 ML VIAL SC PRN ×2 (06:41→18:09)
--- NOTE | 2020-03-31 09:34 | PRG ---
DATE OF SERVICE: 03/31/2020 SUBJECTIVE: A 64-year-old female, being seen for end-stage renal disease. The patient denies any nausea, vomiting, or chest pain. OBJECTIVE: General: The patient is awake and alert. Vital Signs: Afebrile, pulse 75, breathing at 16, blood pressure 121/60. HEENT: Head normocephalic and atraumatic. Eyes intact, no ulcers. Nose intact, no ulcers. Ears intact, no ulcers. Neck: Supple. No JVD. Chest: Symmetrical and clear. Cardiovascular: Shows S1 and S2, no rub, no murmur. Gastrointestinal: Abdomen is soft, bowel sounds positive. Extremities: Show no edema or ulcers. Skin: Shows no rash or petechiae. Musculoskeletal: Shows no joint swelling or stiffness. Genitourinary: Shows no Howard or CVA tenderness. Neurologic: Motor intact. Cranial nerves intact. LABORATORY DATA: Reviewed. ASSESSMENT AND PLAN: 1. Stage 6 chronic kidney disease, stable. 2. Hypertension, stable. 3. Anemia, stable. 4. Medication based on GFR appropriate. Job ID: [id number]
[2020-03-31] MEDS ORDERED: Heparin 10,000 UNITS/ 10 ML VIAL ONE (10:03)
[2020-03-31] MEDS: Insulin Glargine 10 UNITS in Pre-Filled Syringe 1 EACH SC SCH ×2 (11:17→20:48)
[2020-03-31] MEDS: Metoprolol Tartrate 25 MG TAB PO SCH ×2 (11:18→20:50)
[2020-03-31] MEDS: Clopidogrel Bisulfate 75 MG TAB PO SCH (11:18)
[2020-03-31] MEDS: Apixaban 2.5 MG TAB PO SCH ×2 (11:19→20:49)
[2020-03-31] MEDS: Amiodarone 200 MG TAB PO SCH ×2 (11:20→20:49)
[2020-03-31] MEDS: Pregabalin 75 MG CAP PO SCH ×2 (11:20→20:49)
[2020-03-31] MEDS: Polyethylene Glycol 3350 17 GM Packet PO SCH (11:27)
[2020-03-31] MEDS: Acetaminophen 325 MG TAB PO PRN ×2 (11:49→16:54)
[2020-03-31] MEDS: EPOETIN ALFA-EPBX (ESRD) 10,000 UNIT/ML VIAL IVP SCH (14:09)
--- NOTE | 2020-03-31 15:42 | PDOC.HOSPP ---
- Subjective Encounter Date: 03/31/20 Encounter Time: 15:38 Subjective: no complaints - Objective Vital Signs & Weight: Vital Signs (12 hours) Temp Pulse Resp BP Pulse Ox 03/31/20 14:05 80 16 03/31/20 12:00 98.8 F 88 18 132/80 95 03/31/20 08:00 98.4 F 03/31/20 07:20 94.5 F L 75 18 115/46 L 95 03/31/20 05:18 82 16 96 03/31/20 04:03 97.0 F L 75 18 121/60 95 Weight Admit Weight 217 lb 8 oz Weight 241 lb 6.499 oz Most Recent Monitor Data Heart Rate from ECG 93 NIBP 115/50 NIBP BP-Mean 71 Respiration from ECG 13 SpO2 95 I&O: 03/30/20 03/31/20 04/01/20 06:59 06:59 06:59 Intake Total 720 360 Output Total 325 525 Balance 395 -165 Result Diagrams: 03/31/20 03:29 03/31/20 03:29 Additional Labs: Accuchecks 03/31/20 03/31/20 03/30/20 11:35 05:48 17:17 POC Glucose 115 H 168 H 220 H Hospitalist ROS - Medication Medications: Active Medications Generic Name Dose Route Start Last Admin Trade Name Alise PRN Reason Stop Dose Admin Acetaminophen 650 mg 03/19/20 15:14 03/31/20 11:49 Tylenol PO 650 mg Q6H PRN Administration Headache/Fever Or Mild Pain Albuterol/Ipratropium 3 ml 03/22/20 07:00 03/31/20 14:05 Duoneb EZPAP 3 ml [id number] CECILIA Administration Amiodarone HCl 200 mg 03/28/20 21:00 03/31/20 11:20 Amiodarone 200 Mg Tab PO 200 mg BID CECILIA Administration Apixaban 5 mg 03/29/20 21:00 03/31/20 11:19 Apixaban 2.5 Mg Tab PO 5 mg BID CECILIA Administration Atorvastatin Calcium 40 mg 03/23/20 21:00 03/30/20 20:34 Lipitor PO 40 mg HS CECILIA Administration Clopidogrel Bisulfate 75 mg 03/21/20 09:00 03/31/20 11:18 Plavix PO 75 mg DAILY CECILIA Administration Digoxin 0.125 mg 03/25/20 20:00 03/29/20 22:00 Digoxin 0.125 Mg Tab PO 0.125 mg Q2DAYS CECILIA Administration Epoetin Solis-epbx 10,000 unit 03/22/20 11:00 03/31/20 14:09 Retacrit IVP 10,000 unit MoWeFr CECILIA Administration Insulin Glargine 10 units/ 0.1 mls @ 0 mls/hr 03/27/20 09:00 03/31/20 11:17 Miscellaneous Medication SC 0.1 mls QAM CECILIA Administration Insulin Glargine 10 units/ 0.1 mls @ 0 mls/hr 03/27/20 21:00 03/30/20 20:37 Miscellaneous Medication SC 0.1 mls HS CECILIA Administration Insulin Human Regular 0 units 03/19/20 15:24 03/31/20 06:41 Humulin R SC 4 unit Q4H PRN Administration POST OP SLIDING SCALE Protocol Metoprolol Tartrate 12.5 mg 03/25/20 21:00 03/31/20 11:18 Metoprolol Tartrate 25 Mg Tab PO 12.5 mg BID CECILIA Administration Ondansetron HCl 4 mg 03/19/20 15:14 03/19/20 21:59 Zofran IVP 4 mg Q6H PRN Administration Nausea/Vomiting Pantoprazole Sodium 40 mg 03/22/20 09:00 03/31/20 11:19 Protonix PO 40 mg DAILY CECILIA Administration Polyethylene Glycol 17 gm 03/29/20 09:00 03/31/20 11:27 Polyethylene Glycol 3350 17 Gm Packet PO Not Given DAILY CECILIA Pregabalin 75 mg 03/21/20 09:00 03/31/20 11:20 Lyrica PO 75 mg BID CECILIA Administration Sodium Chloride 10 ml 03/21/20 09:00 03/31/20 11:27 Flush - Normal Saline IVF 10 ml Q12HR CECILIA Administration - Exam General Appearance: awake alert Neck: no JVD Heart: RRR, no murmur Respiratory: CTAB Gastrointestinal: soft, non-tender, normal bowel sounds Extremities: 1+ LE edema Hosp A/P (1) Atrial fibrillation with rapid ventricular response Code(s): I48.91 - UNSPECIFIED ATRIAL FIBRILLATION Status: Acute (2) Chest pain Code(s): R07.9 - CHEST PAIN, UNSPECIFIED Status: Acute Qualifiers: Ischemic chest pain type: unspecified angina pectoris type (3) S/P CABG (coronary artery bypass graft) Code(s): Z95.1 - PRESENCE OF AORTOCORONARY BYPASS GRAFT Status: Acute (4) CAD (coronary artery disease) Code(s): I25.10 - ATHSCL HEART DISEASE OF [place] CORONARY ARTERY W/O ANG PCTRS Status: Chronic Qualifiers: Coronary Disease-Associated Artery/Lesion type: [place] artery [place] vs. transplanted heart: [place] heart Associated angina: without angina Qualified Code(s): I25.10 - Atherosclerotic heart disease of [place] coronary artery without angina pectoris (5) COPD (chronic obstructive pulmonary disease) Status: Chronic Qualifiers: Emphysema type: unspecified (6) Chronic combined systolic and diastolic congestive heart failure Code(s): I50.42 - CHRONIC COMBINED SYSTOLIC AND DIASTOLIC HRT FAIL Status: Chronic (7) DM type 2 (diabetes mellitus, type 2) Status: Chronic Qualifiers: Diabetes mellitus [facility] insulin use: with [facility] use Diabetes mellitus complication status: with kidney complications Diabetes mellitus complication detail: with chronic kidney disease Chronic kidney disease stage: stage 3 (moderate) Qualified Code(s): E11.22 - Type 2 diabetes mellitus with diabetic chronic kidney disease; N18.3 - Chronic kidney disease, stage 3 (moderate); Z79.4 - detention (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 of insulin (8) ESRD (end stage renal disease) on dialysis Code(s): N18.6 - END STAGE RENAL DISEASE; Z99.2 - DEPENDENCE ON RENAL DIALYSIS Status: Chronic (9) HLD (hyperlipidemia) Code(s): E78.5 - HYPERLIPIDEMIA, UNSPECIFIED Status: Chronic (10) HTN (hypertension) Code(s): I10 - ESSENTIAL (PRIMARY) HYPERTENSION Status: Chronic Qualifiers: Hypertension type: essential hypertension Qualified Code(s): I10 - Essential (primary) hypertension (11) Hypothyroidism Code(s): E03.9 - HYPOTHYROIDISM, UNSPECIFIED Status: Chronic Qualifiers: Hypothyroidism type: unspecified Qualified Code(s): E03.9 - Hypothyroidism, unspecified (12) Ischemic cardiomyopathy Code(s): I25.5 - ISCHEMIC CARDIOMYOPATHY Status: Chronic - Plan being fitted with life ves3x a week routine HD cont eliquis, plavix cont accu/ss/glargine cont statin cont [facility] pending
--- NOTE | 2020-03-31 18:29 | PDOC.CPN ---
- Subjective Date: 03/31/20 Time: 18:28 Interval history: Doing well. In good spirits today. Working with PT but minimal. - Review of Systems General: denies: fever/chills, weight/appetite/sleep changes, night sweats, fatigue Respiratory: denies: cough, congestion, shortness of breath, exercise intolerance Cardiovascular: denies: chest pain, palpitation, edema, paroxysmal nocturnal dyspnea, orthopnea Gastrointestinal: denies: nausea, vomiting, diarrhea, constipation, abd pain, GI bleeding Musculoskeletal: denies: pain, tenderness, stiffness, swelling, arthritis/arthralgias Neurological: denies: numbness, syncope, seizure, weakness - Objective Allergies/Adverse Reactions: Allergies Allergy/AdvReac Type Severity Reaction Status Date / Time adhesive tape Allergy Verified 02/27/20 11:07 aspirin Allergy Verified 02/27/20 11:07 latex Allergy Verified 02/27/20 11:07 meperidine [From Demerol] Allergy Verified 02/27/20 11:07 morphine Allergy Verified 02/27/20 11:07 lace Allergy Uncoded 02/27/20 11:07 Visit Medications: Current Medications Acetaminophen (Tylenol) 650 mg PO Q6H PRN PRN Reason: Headache/Fever Or Mild Pain Last Admin: 03/31/20 16:54 Dose: 650 mg Documented by: Albuterol/Ipratropium (Duoneb) 3 ml EZPAP [id number] [facility] Last Admin: 03/31/20 14:05 Dose: 3 ml Documented by: Amiodarone HCl (Amiodarone 200 Mg Tab) 200 mg PO BID [facility] Last Admin: 03/31/20 11:20 Dose: 200 mg Documented by: Apixaban (Apixaban 2.5 Mg Tab) 5 mg PO BID [facility] Last Admin: 03/31/20 11:19 Dose: 5 mg Documented by: Atorvastatin Calcium (Lipitor) 40 mg PO HS [facility] Last Admin: 03/30/20 20:34 Dose: 40 mg Documented by: Bisacodyl (Dulcolax) 10 mg PO Q12H PRN PRN Reason: Constipation Bisacodyl (Dulcolax) 10 mg [place] Q12H PRN PRN Reason: Constipation Clopidogrel Bisulfate (Plavix) 75 mg PO DAILY [facility] Last Admin: 03/31/20 11:18 Dose: 75 mg Documented by: Dextrose/Water (Dextrose 50%) 25 gm SLOW IVP PRN PRN PRN Reason: PER HYPOGLYCEMIC PROTOCOL Digoxin (Digoxin 0.125 Mg Tab) 0.125 mg PO Q2DAYS [facility] Last Admin: 03/29/20 22:00 Dose: 0.125 mg Documented by: Epoetin Solis-epbx (Retacrit) 10,000 unit IVP MoWeFr [facility] Last Admin: 03/31/20 14:09 Dose: 10,000 unit Documented by: Glucagon (Glucagon) 1 mg SC PRN PRN PRN Reason: PER HYPOGLYCEMIC PROTOCOL Guaifenesin/Dextromethorphan (Robitussin Dm) 15 ml PO Q4H PRN PRN Reason: Cough Hydralazine HCl (Apresoline) 10 mg SLOW IVP Q6H PRN PRN Reason: To Maintain SBP< 140mmHG Dextrose/Water (D5w) 1,000 mls @ 0 mls/hr IV INF PRN PRN Reason: PRN HYPOGLYCEMIC PROTOCOL Insulin Glargine 10 units/ (Miscellaneous Medication) 0.1 mls @ 0 mls/[place] [facility] [place] Admin: 03/31/20 11:17 Dose: 0.1 mls Documented by: Insulin Glargine 10 units/ (Miscellaneous Medication) 0.1 mls @ 0 mls/hr SC HS [facility] Last Admin: 03/30/20 20:37 Dose: 0.1 mls Documented by: Insulin Human Regular (Humulin R) 0 units SC Q4H PRN; Protocol PRN Reason: POST OP SLIDING SCALE Last Admin: 03/31/20 18:09 Dose: 4 unit Documented by: Metoprolol Tartrate (Metoprolol Tartrate 25 Mg Tab) 12.5 mg PO BID [facility] Last Admin: 03/31/20 11:18 Dose: 12.5 mg Documented by: Ondansetron HCl (Zofran) 4 mg IVP Q6H PRN PRN Reason: Nausea/Vomiting Last Admin: 03/19/20 21:59 Dose: 4 mg Documented by: Pantoprazole Sodium (Protonix) 40 mg PO DAILY [facility] Last Admin: 03/31/20 11:19 Dose: 40 mg Documented by: Polyethylene Glycol (Polyethylene Glycol 3350 17 Gm Packet) 17 gm PO DAILY [facility] Last Admin: 03/31/20 11:27 Dose: Not Given Documented by: Pregabalin (Lyrica) 75 mg PO BID [facility] Last Admin: 03/31/20 11:20 Dose: 75 mg Documented by: Sodium Chloride (Flush - Normal Saline) 10 ml IVF Q12HR [facility] Last Admin: 03/31/20 11:27 Dose: 10 ml Documented by: Sodium Chloride (Flush - Normal Saline) 10 ml IVF PRN PRN PRN Reason: Saline Flush Vital Signs & Weight: Vital Signs Temp Pulse Resp BP Pulse Ox 03/31/20 15:38 98.0 F 77 18 127/59 L 98 03/31/20 14:05 80 16 03/31/20 12:00 98.8 F 88 18 132/80 95 03/31/20 08:00 98.4 F 03/31/20 07:20 94.5 F L 75 18 115/46 L 95 Admit Weight 217 lb 8 oz Weight 241 lb 6.499 oz - Physical Exam General: alert & oriented x3 HEENT: mucus membranes moist Neck: supple neck Cardiac: regular rate and rhythm Lungs: clear to auscultation Neuro: grossly intact Abdomen: active bowel sounds Extremities: no edema Skin: clear Musculoskeletal: no pain - Labs Result Diagrams: 03/31/20 03:29 03/31/20 03:29 Troponin/CKMB Troponin I 0.065 ng/mL (< 0.028) H 03/12/20 10:01 - Telemetry Sinus rhythms and dysrhythmias: sinus rhythm - Assessment/Plan Assessment/Plan: 1. Ischemic CM EF at 28% 2. CAD 3. ESRD 4. In stent re stenosis recurrent to LAD and severe RCA disease. 5. Post op afib. s/p JUVE/Cardioversion yesterday. Now in sinus. 6. S/P CABG. PLAN: - ASA/Statin. - HD per nephrology - Continue amiodarone PO load at 200 mg twice a day for 4 more days then 200 mg daily. - Full anticoagulation with Eliquis for at least one month. - Remains in sinus after DCCV. - Lifevest before discharge. - Placement.
[2020-03-31] MEDS: Atorvastatin Calcium 40 MG TAB PO SCH (20:49)
[2020-03-31] MEDS ORDERED: ALPRAZolam 0.25 MG TAB PO PRN (21:22)
[2020-03-31] MEDS: Digoxin 0.125 MG TAB PO SCH (22:01)
[2020-04-01] MEDS: Amiodarone 200 MG TAB PO SCH (08:37)
[2020-04-01] MEDS: Clopidogrel Bisulfate 75 MG TAB PO SCH (08:39)
[2020-04-01] MEDS: Metoprolol Tartrate 25 MG TAB PO SCH (08:39)
[2020-04-01] MEDS: Pregabalin 75 MG CAP PO SCH (08:40)
[2020-04-01] MEDS: Apixaban 2.5 MG TAB PO SCH (08:41)
[2020-04-01] MEDS: Acetaminophen 325 MG TAB PO PRN (08:41)
[2020-04-01] MEDS: Insulin Glargine 10 UNITS in Pre-Filled Syringe 1 EACH SC SCH (08:42)
[2020-04-01] MEDS: Polyethylene Glycol 3350 17 GM Packet PO SCH (08:42)
[2020-04-01 11:27] VITALS: TEMP 97.7
[2020-04-01 11:42] VITALS: BP 138/63
--- NOTE | 2020-04-01 12:49 | PRG ---
DATE OF SERVICE: 04/01/2020 SUBJECTIVE: A 64-year-old female being seen for end-stage renal disease. The patient denies any nausea, vomiting, or chest pain. PHYSICAL EXAMINATION: GENERAL: The patient is awake and alert. VITAL SIGNS: Afebrile, pulse 80, breathing at 16, blood pressure 125/84. HEENT: Head normocephalic and atraumatic. Eyes intact, no ulcers. Nose intact, no ulcers. Ears intact, no ulcers. NECK: Supple. No JVD. CHEST: Symmetrical and clear. CARDIOVASCULAR: Shows S1 and S2, no rub, no murmur. GASTROINTESTINAL: Abdomen is soft, bowel sounds positive. EXTREMITIES: Show no edema or ulcers. SKIN: Shows no rash or petechiae. MUSCULOSKELETAL: Shows no joint swelling or stiffness. GENITOURINARY: Shows no Howard or CVA tenderness. NEUROLOGIC: Motor intact. Cranial nerves intact. LABORATORY DATA: Shows hemoglobin 9. ASSESSMENT AND PLAN: 1. Chronic kidney disease, stage 6. Plan dialysis. 2. Hypertension, stable. 3. Anemia, stable. 4. Medication based on GFR, appropriate. Job ID: [id number]
--- NOTE | 2020-04-02 09:42 | DIS ---
DATE OF ADMISSION: 03/13/2020 DATE OF DISCHARGE: 04/01/2020 PRIMARY CARE PHYSICIAN: Dr. Bella. DISPOSITION: Discharged to the [facility] under the care of Dr. Bella. DISCHARGE DIAGNOSES: Chest pain, coronary artery disease status post coronary artery bypass graft in this hospitalization, atrial fibrillation with rapid ventricular response, chronic obstructive pulmonary disease, chronic combined systolic/diastolic dysfunction, diabetes mellitus type 2 with end-stage renal disease, dyslipidemia, and hypertension. DISCHARGE MEDICATIONS: 1. Atorvastatin 40 mg a day. 2. Eliquis 2.5 mg twice a day. 3. Xanax 1 mg p.o. t.i.d. p.r.n. 4. Lantus 50 units subcu at bedtime. 5. NovoLog 100 units subcu t.i.d. with meals as needed. 6. Plavix 75 mg a day. 7. Coreg 12.5 mg twice a day. 8. Glipizide 20 mg a day. 9. Ranexa 500 mg twice a day. 10. Pregabalin 100 mg p.o. b.i.d. 11. Lisinopril 10 mg a day. 12. Levothyroxine 50 mcg a day. 13. Isordil 10 mg p.o. b.i.d. 14. Trazodone 50 mg at bedtime. 15. Ultram 50 mg p.o. q.6 hours p.r.n. 16. Demadex 40 mg a day. 17. Amiodarone 200 mg p.o. b.i.d., to be tapered to 200 mg once a day in 1 week. ALLERGIES: ASPIRIN, MEPERIDINE, AND MORPHINE. CODE STATUS: Full resuscitation. DIET: Diabetic with renal. PENDING AT THE TIME OF DISCHARGE: Nothing. HOSPITAL COURSE: The patient was admitted to the hospital through the [facility] to the Hospitalist Service. She was admitted with chest pain, placed on telemetry. Serial enzymes, etc., ordered. Aspirin given. Her cardiac cath from earlier in the year was reviewed. Aspirin, nitrates, etc. Cardiology consulted. Dr. Solis saw her. She had a history of coronary artery disease. The enzymes were not remarkable. A Cardiolite stress test was done on 03/13, which was a two day stress test, global hypokinesis with small area of reversible distal anterior wall ischemia. The patient with end-stage renal disease. Dr. Tresa Pretty was consulted for hemodialysis. In fact, the discharge summary was done on 03/14, however. On 03/15, cardiology progress note suggests a left heart cath. Cath revealed proximal LAD 80% stenosis, distal LAD 50%, circumflex none. Dr. Espinoza Orellana was consulted. Discussions with her were made. Coronary artery bypass graft was decided on 03/19/2020. She underwent coronary artery bypass graft by Dr. Espinoza Orellana. Left internal mammary artery to mid left anterior descending, reverse saphenous vein to posterolateral branch. She was moved to intensive care unit. Dr. John Beltran was consulted on 03/20/20 for care. She was rapidly extubated. On 03/21, she has been noted to go into rapid atrial fibrillation. She was started on intravenous amiodarone plus digoxin. On 03/23, she was improving. Amiodarone infusion was continued in hopes of spontaneous conversion; however, this did not happen. On 03/29, she went in and underwent DC cardioversion. After JUVE revealed no evidence of mass, she was successfully converted into regular sinus rhythm where she is remained. Because of her low EF, she is being discharged to the long term facility with a LifeVest on. Pertinent laboratory at this time on 03/28/2020, white count 8.4, hemoglobin 10.2, and platelet count 354,000. On 03/31, sodium 131, potassium 4.3, BUN 54, creatinine 2.8, CO2 of 21, blood sugar 100 to 200. At this time, she is stable. She is in regular sinus rhythm. She is alert, pleasant, and cooperative. She is receiving hemodialysis 3 times a week. She is being transferred to long term facility under Dr. Bella's care. She will need followup in the future by Cardiology and Cardiovascular Surgery. Job ID: [id number]
== END 2020-04-01 14:54 | DRG 233 ==
LOC: ERS 04:40 → 2SW 06:00 → OBSVTOIN 03-13 16:50 → 2NO 03-13 19:13 → CCU 03-19 10:05 → IMCU/EMU 03-25 14:09 → 2NO 03-28 17:02
PROVIDERS: ADMIT Internal Medicine; ATTEND Internal Medicine
PROC: B2111ZZ Fluoroscopy of Multiple Coronary Arteries using Low Osmolar Contrast (ICD-10-PCS; principal; 2020-03-17)
PROC: B2151ZZ Fluoroscopy of Left Heart using Low Osmolar Contrast (ICD-10-PCS; 2020-03-17)
PROC: 4A023N7 Measurement of Cardiac Sampling and Pressure, Left Heart, Percutaneous Approach (ICD-10-PCS; 2020-03-17)
PROC: 02100Z9 Bypass Coronary Artery, One Artery from Left Internal Mammary, Open Approach (ICD-10-PCS; 2020-03-19)
PROC: 021009W Bypass Coronary Artery, One Artery from Aorta with Autologous Venous Tissue, Open Approach (ICD-10-PCS; 2020-03-19)
PROC: 06BQ4ZZ Excision of Left Saphenous Vein, Percutaneous Endoscopic Approach (ICD-10-PCS; 2020-03-19)
PROC: 5A1221Z Performance of Cardiac Output, Continuous (ICD-10-PCS; 2020-03-19)
PROC: 30233R1 Transfusion of Nonautologous Platelets into Peripheral Vein, Percutaneous Approach (ICD-10-PCS; 2020-03-19)
PROC: 5A1D70Z Performance of Urinary Filtration, Intermittent, Less than 6 Hours Per Day (ICD-10-PCS; 2020-03-21)
PROC: 30233N1 Transfusion of Nonautologous Red Blood Cells into Peripheral Vein, Percutaneous Approach (ICD-10-PCS; 2020-03-22)
PROC: 5A1D70Z Performance of Urinary Filtration, Intermittent, Less than 6 Hours Per Day (ICD-10-PCS; 2020-03-26)
PROC: 5A2204Z Restoration of Cardiac Rhythm, Single (ICD-10-PCS; 2020-03-29)
PROC: B24BZZ4 Ultrasonography of Heart with Aorta, Transesophageal (ICD-10-PCS; 2020-03-29)
PROC: 5A1D70Z Performance of Urinary Filtration, Intermittent, Less than 6 Hours Per Day (ICD-10-PCS; 2020-03-31)
DX: I25.10 Atherosclerotic heart disease of native coronary artery without angina pectoris (principal); J95.821 Acute postprocedural respiratory failure; I50.43 Acute on chronic combined systolic (congestive) and diastolic (congestive) heart failure; I13.2 Hypertensive heart and chronic kidney disease with heart failure and with stage 5 chronic kidney disease, or end stage renal disease; E87.1 Hypo-osmolality and hyponatremia; I97.190 Other postprocedural cardiac functional disturbances following cardiac surgery; R07.89 Other chest pain; I42.0 Dilated cardiomyopathy; E03.9 Hypothyroidism, unspecified; J44.9 Chronic obstructive pulmonary disease, unspecified; F41.9 Anxiety disorder, unspecified; F32.9 Major depressive disorder, single episode, unspecified; M79.7 Fibromyalgia; E66.01 Morbid (severe) obesity due to excess calories; E11.22 Type 2 diabetes mellitus with diabetic chronic kidney disease; D63.1 Anemia in chronic kidney disease; Z20.828 Contact with and (suspected) exposure to other viral communicable diseases; E87.5 Hyperkalemia; R33.9 Retention of urine, unspecified; Z90.710 Acquired absence of both cervix and uterus; I25.2 Old myocardial infarction; Z95.5 Presence of coronary angioplasty implant and graft; Z88.6 Allergy status to analgesic agent; Z88.8 Allergy status to other drugs, medicaments and biological substances; Z91.040 Latex allergy status; Z99.2 Dependence on renal dialysis; Z68.36 Body mass index [BMI] 36.0-36.9, adult; Z79.01 Long term (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 of anticoagulants; Z79.899 Other long term (current) drug therapy; Z79.82 Long term (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 of aspirin
CPT/HCPCS: 36415; 36416; 36430; 71045; 78452; 80048; 80074; 82805; 83735; 84132; 85014; 85018; 85025; 85610; 85730; 86850; 86900; 86901; 87389; 87635; 90935; 92960; 93005; 93010; 93017; 93312; 93458; 94002; 94003; 94640; 94760; 96372; 96374; 97139; 99152; 99285; A9500; G0257; G0378; J0171; J0282; J0690; J1100; J1160; J1642; J1644; J1650; J1815; J1885; J1940; J2250; J2270; J2370; J2405; J2440; J2704; J2720; J2785; J3010; J3370; J3475; J3480; J3490; J7070; J7620; P9016; P9035; P9045; Q5105; Q9967; S0017; S0020; S0028; U0003

== ENCOUNTER 2020-04-30 17:21 | Inpatient (IN) | payer OTHER ==
--- NOTE | 2020-04-30 18:14 | RAD ---
PORTABLE CHEST: 04/30/20 HISTORY: Chest pain when patient was at dialysis. COMPARISON: 03/26/20 exam. Heart size is enlarged with postop sternotomy changes. Right sided Hemosplit catheter is present. Mod erate right pleural effusion is present. IMPRESSION: Cardiomegaly with mild vascular engorgement and moderate right pleural effusion. No overt interstitia l edema change. POS: OFF
[2020-04-30 18:30] LABS: #Eosinphils 0.1 thou/uL (0.0-0.7); #Lymphocytes 0.8 thou/uL (1.20-3.40); #Monocytes 0.6 thou/uL (0.11-0.59); %Basophils 0.6 % (0.0-1.0); %Eosinophils 1.1 % (0.0-10.0); %Lymphocytes 10.2 % (21.0-51.0); %Monocytes 8.1 % (0.0-10.0); Hemoglobin 9.7 g/dL (12.0-16.0); Mean Corpuscular HGB CONC 31.9 g/dL (32.0-36.0); Mean Corpuscular Hemoglobin 27.6 pg (27.0-31.0); Mean Corpuscular Volume 86.5 fL (78.0-98.0); Mean Platelet Volume 8.6 fL (7.4-10.4); Platelet Count 267 thou/uL (130-400); RBC Distribution Width 16.3 % (11.5-14.5); White Blood Cell (WBC) Count 7.5 thou/uL (4.8-10.8)
[2020-04-30 18:48] LABS: ALT (SGPT) 19 U/L (8-55); AST (SGOT) 22 U/L (5-34); Albumin 3.1 g/dL (3.4-4.8); Alkaline Phosphatase 110 U/L (40-110); Anion Gap 15 mmol/L (10-20); BUN (Urea Nitrogen) 25 mg/dL (9.8-20.1); Bilirubin, Total 0.7 mg/dL (0.2-1.2); Calc. Creatinine Clearance 0 mL/min (70-130); Calcium 8.4 mg/dL (7.8-10.44); Carbon Dioxide 30 mmol/L (23-31); Chloride 96 mmol/L (98-107); Estimated GFR-MDRD 21; Globulin 3.1 g/dL (2.4-3.5); Glucose 166 mg/dL (80-115); Potassium 3.6 mmol/L (3.5-5.1); Protein, Total 6.2 g/dL (6.0-8.3); Sodium 137 mmol/L (136-145)
[2020-04-30 19:10] LABS: CKMB 1.1 ng/mL (0-6.6)
[2020-04-30] MEDS ORDERED: Fentanyl 100 MCG/2 ML VIAL ONE (19:25)
[2020-04-30] MEDS ORDERED: Enoxaparin Sodium 100 MG/ML SYRINGE ONE (19:25)
[2020-04-30] MEDS ORDERED: Nitroglycerin 0.4 MG TAB (25 Tab Bottle) SL PRN (19:39)
[2020-04-30] MEDS ORDERED: HumaLOG 300 UNITS/3 ML VIAL SC PRN (19:44)
[2020-04-30] MEDS ORDERED: Dextrose 5% in Water 1,000 ML IV PRN (19:44)
[2020-04-30] MEDS ORDERED: Dextrose 50% Abboject 50 ML SYRINGE SLOW IVP PRN (19:44)
--- NOTE | 2020-04-30 21:26 | PDOC.EVN ---
Event Note - Event Note Event Note: [id number] dictated
[2020-04-30 22:15] LABS: Glucose 154 mg/dL (80-115)
[2020-04-30 22:43] LABS: CKMB 1.1 ng/mL (0-6.6)
[2020-05-01 00:10] VITALS: BMI 31.3
[2020-05-01] MEDS ORDERED: HYDROcodone/Acetaminophen 5/325 mg Tablet PO PRN (01:13)
[2020-05-01] MEDS: HYDROcodone/Acetaminophen 5/325 mg Tablet PO PRN ×4 (01:39→16:04)
--- NOTE | 2020-05-01 01:52 | HP ---
CHIEF COMPLAINT: Chest pain. HISTORY OF PRESENT ILLNESS: Ms. Mendez is a 65-year-old female with multiple medical problems, including end-stage renal disease, on hemodialysis, coronary artery disease, MIs, congestive heart failure, hypertension, hypothyroidism, diabetes, hyperlipidemia, COPD, among others, presents to the emergency room with chest pain that began during dialysis. Dialysis completed and EKG performed at dialysis center demonstrating left bundle branch block, but unable to compare to prior. The patient also complained of right shoulder pain, but according to her, she fell a few weeks ago and she said that she has a fracture and they have been watching it. In the emergency room workup, the patient had troponin of 0.04. ED physician compared old EKGs and there is no new finding according to him. The patient has old left bundle branch block. The patient had a recent coronary artery bypass graft surgery about a month ago with Dr. Orellana. Blood pressure was in the low 100s. Mild shortness of breath. ED physician is consulting the patient's printing supervisor. The patient is already on anticoagulation. PAST MEDICAL HISTORY: As mentioned above in history of present illness. PAST SURGICAL HISTORY: 1. Cardiac stents. 2. Hysterectomy. 3. Coronary artery bypass graft surgery. 4. Right leg surgery. 5. 01/19/2019. 6. Right chest shunt. 7. Right arm shunt. PAST PSYCHIATRIC HISTORY: Includes anxiety, depression. SOCIAL HISTORY: Denies alcohol drinking. She is a former drug user. She used to use marijuana. The patient quit using marijuana 3 or 4 years ago. FAMILY HISTORY: Reviewed and noncontributory. ALLERGIES: ALLERGIC TO ADHESIVE TAPE, ASPIRIN, LASIX, LATEX, MEPERIDINE, MORPHINE. REVIEW OF SYSTEMS: Review of 14 systems negative except what is mentioned in history of present illness. PHYSICAL EXAMINATION: GENERAL: The patient is awake, alert, in moderate distress. VITAL SIGNS: Blood pressure is 111/62, pulse is 90, respiratory rate is 19, temperature 97.9, oxygen saturation is 100% on 4 L/minute nasal cannula. HEAD AND NECK: Normocephalic, atraumatic. NECK: Supple. CHEST: Few bibasilar crackles. HEART: S1, S2. Regular. ABDOMEN: Obese, soft. Bowel sounds present. NEUROLOGIC: Awake, alert. No focal deficits. PSYCHIATRIC: Anxious. EXTREMITIES: Right shoulder tenderness. ASSESSMENT AND PLAN: 1. Acute coronary syndrome? 2. End-stage renal disease, on hemodialysis. 3. Coronary artery disease with history of cardiac stents and coronary artery bypass graft surgery. 4. Congestive heart failure, chronic. 5. Diabetes mellitus, type 2. 6. Anxiety. PLAN: 1. Admit. 2. Tele monitor. 3. Aspirin. 4. Serial troponins. 5. ED physician to consult the patient's printing supervisor for evaluation and further recommendations. 6. Discussed with ED physician. 7. Reconcile home medications. 8. DVT prophylaxis as appropriate. 9. Expected length of stay, 2 midnights or more. Job ID: [id number]
[2020-05-01 04:24] LABS: #Eosinphils 0.1 thou/uL (0.0-0.7); #Monocytes 0.6 thou/uL (0.11-0.59); #Neutrophils 4.2 thou/uL (1.40-6.50); %Basophils 0.1 % (0.0-1.0); %Eosinophils 2.1 % (0.0-10.0); %Lymphocytes 17.1 % (21.0-51.0); %Monocytes 9.9 % (0.0-10.0); %Neutrophils 70.9 % (42.0-75.0); Hemoglobin 9.1 g/dL (12.0-16.0); Mean Corpuscular HGB CONC 31.6 g/dL (32.0-36.0); Mean Corpuscular Hemoglobin 27.8 pg (27.0-31.0); Mean Corpuscular Volume 88.1 fL (78.0-98.0); Mean Platelet Volume 8.2 fL (7.4-10.4); Platelet Count 226 thou/uL (130-400); Red Blood Cell (RBC) Count 3.26 mill/uL (4.20-5.40)
[2020-05-01 04:45] LABS: Anion Gap 14 mmol/L (10-20); BUN (Urea Nitrogen) 29 mg/dL (9.8-20.1); Calc. Creatinine Clearance 32 mL/min (70-130); Calcium 9.1 mg/dL (7.8-10.44); Carbon Dioxide 27 mmol/L (23-31); Chloride 97 mmol/L (98-107); Cholesterol 108 mg/dl (< 200 Desired); Estimated GFR-MDRD 18; Glucose 140 mg/dL (80-115); HDL Cholesterol 27 mg/dL (>60 Neg Risk); LDL Cholesterol, Calculated 66 mg/dL; Potassium 3.6 mmol/L (3.5-5.1); Sodium 134 mmol/L (136-145); Triglycerides 76 mg/dL (Less than 150)
[2020-05-01 08:11] LABS: Glucose 105 mg/dL (80-115)
[2020-05-01] MEDS ORDERED: Aspirin 325 mg Enteric Coated Tablet PO SCH (09:00)
[2020-05-01] MEDS ORDERED: FLU VACC QS2020-21(6MOS UP)/PF 60 MCG/0.5 ML SYRINGE IM ONE (09:00)
[2020-05-01] MEDS: Ondansetron PF 4 MG/2 ML Vial IVP PRN ×2 (10:50→21:06)
--- NOTE | 2020-05-01 11:05 | CON ---
DATE OF CONSULTATION: REASON FOR CONSULTATION: End-stage renal disease, for maintenance hemodialysis. HISTORY OF PRESENT ILLNESS: This is a 64-year-old female, presented to the hospital for chest pain. The patient does dialysis Sunday, Sunday, and Sunday. The patient, at this time, denies any nausea, vomiting, or chest pain. PAST MEDICAL HISTORY: Significant for coronary artery disease, hypertension, CABG, right leg surgery, right arm surgery, right chest surgery, history of depression, history of anxiety, history of tunneled dialysis catheter, history of hypothyroidism, history of diabetes mellitus, and history of COPD. SOCIOECONOMIC HISTORY: No alcohol or drug use. FAMILY HISTORY: Negative for ESRD. ALLERGIES: REVIEWED. HOME MEDICATIONS: List reviewed. HOSPITAL MEDICATIONS: List reviewed. REVIEW OF SYSTEMS: 15-point review of systems was performed, was negative except for positives noted above. HEENT: Eyes intact, no diplopia. Ears: No hearing loss or earache. Nose: No discharge or bleeding. CHEST: No cough or phlegm. ABDOMEN: No nausea or vomiting. GENITOURINARY: No hematuria. No Howard catheter. MUSCULOSKELETAL: No low back pain. No joint swelling or pain. NEUROLOGICAL: No syncope. No seizures. SKIN: No complaints of rash or itching. PSYCHIATRIC: No depression. CONSTITUTIONAL: No weight loss or loss of appetite. PHYSICAL EXAMINATION: GENERAL: The patient is awake and alert. VITAL SIGNS: Afebrile, pulse 99, breathing at 16, blood pressure 120/64. HEENT: Head normocephalic and atraumatic. Eyes intact, no ulcers. Nose intact, no ulcers. Ears intact, no ulcers. NECK: Supple. No JVD. CHEST: Symmetrical and clear. CARDIOVASCULAR: Shows S1 and S2, no rub, no murmur. GASTROINTESTINAL: Abdomen is soft, bowel sounds positive. EXTREMITIES: Show no edema or ulcers. SKIN: Shows no rash or petechiae. MUSCULOSKELETAL: Shows no joint swelling or stiffness. GENITOURINARY: Shows no Howard or CVA tenderness. NEUROLOGIC: Motor intact. Cranial nerves intact. LABORATORY DATA: Reviewed. ASSESSMENT AND PLAN: 1. Stage 6 chronic kidney disease, plan dialysis on Sunday. 2. Hypertension, stable. 3. Anemia, stable. Medication based on GFR appropriate. Chest pain management per primary team. Job ID: [id number]
[2020-05-01 12:03] LABS: SARS-CoV-2 MS2 Positive; SARS-CoV-2 N Gene Negative; SARS-CoV-2 S Gene Negative; SARS-CoV-2 by NAA Not Detected (NotDetected); SARS-CoV-2 orf1ab Negative
[2020-05-01 12:03] LABS: Glucose 101 mg/dL (80-115)
--- NOTE | 2020-05-01 15:33 | PDOC.EVN ---
Event Note - Event Note Event Note: The patient is doing well.She denies chest pain. She states it lasted for a few hours yesterday and then self-resolved. She reports severe right arm pain radiating downher hand with stabbing pains in her hand. She saw orthopedic doctor who told her to wear a sling for a week Patient does not want to go back [facility]. She is upset the sling keeps being taken off of her by techs. She wants to go home with home health General: patient obese, oriented times three CV: irregularly irregular Lungs: dimnished breath sounds Abdomen: +BS,soft, nontender, nondistended Ext: right shoulder tenderness. Right arm in a sling EKG; LBBB This is a 64 year old female patient with past medical history of CAD, CHF, ESRD who presented with chest pain during dialysis Chest pain- resolved - cardiology was consulted. No recommendations currently. She had CABG last sun Right humeral neck fracture - repeat shoulder Xray. Will discuss with ortho pending results ESRD - continue dialysis as scheduled Chronic respiratory failure - on 2L nasal acannula
[2020-05-01 17:36] LABS: Glucose 98 mg/dL (80-115)
--- NOTE | 2020-05-01 18:00 | CON ---
DATE OF CONSULTATION: 05/01/2020 [employer]IMARY INDUSTRIAL [employer]OMICS TEACHER: Moises Peter MD REASON FOR CONSULTATION: Chest pain. HISTORY OF PRESENT ILLNESS: Ms. Mendez is a very pleasant 64-year-old white female, very well known to myself, who comes to the hospital for chest pain. She was on dialysis and had sudden onset of midsternal chest pain, it radiated to the left arm. She recently had a fall and broke her left arm in 2 places, she is wearing a sling. She was admitted and Cardiology is being consulted. Her troponins have been in the indeterminate range. Ms. Mendez has a significant history of coronary artery disease, she had bypass surgery just about a month ago. PAST MEDICAL HISTORY: 1. Coronary artery disease. 2. Several stents placed in the past with in-stent restenoses within a few months of placement every single time. 3. Status post CABG. 4. End-stage renal disease, on hemodialysis. 5. History of systolic heart failure, last EF at about 40%. 6. Fibromyalgia. 7. Anxiety and depression. 8. Chronic low back pain. 9. Type 2 diabetes. 10. Hypothyroidism. 11. COPD. 12. Atrial fibrillation, on chronic anticoagulation with Eliquis. 13. Left bundle-branch block. PAST SURGICAL HISTORY: 1. Hysterectomy. 2. Multiple stents and more recently CABG. 3. Right leg surgery. 4. Underarm, left shoulder cyst removal. FAMILY HISTORY: Noncontributory. SOCIAL HISTORY: No alcohol, tobacco, or drugs. OUTPATIENT MEDICATIONS: 1. Trazodone 50 mg at bedtime. 2. Glipizide 20 mg b.i.d. 3. Torsemide 40 mg a day. 4. Ranolazine 500 mg b.i.d. 5. Pregabalin. 6. Lisinopril 5 mg a day. 7. Levothyroxine 50 mcg a day. 8. Isosorbide dinitrate 10 mg b.i.d. 9. Insulin Lantus 40 units at bedtime. 10. NovoLog. 11. Plavix 75 mg a day. 12. Vitamin D3. 13. Carvedilol 12.5 mg b.i.d. 14. Atorvastatin 40 mg at bedtime. 15. Vitamin C. 16. Eliquis 2.5 mg b.i.d. 17. Amiodarone 200 mg a day. 18. Tylenol p.r.n. 19. Xanax p.r.n. ALLERGIES: 1. ADHESIVE TAPE. 2. ASPIRIN. 3. LATEX. 4. MEPERIDINE. 5. MORPHINE. 6. LAYS. REVIEW OF SYSTEMS: A 12-point review of systems was done and was found to be negative other than stated in the history of present illness. PHYSICAL EXAMINATION: VITAL SIGNS: Temperature 97.4, pulse 97, respiratory rate 16, saturation 99% on 2 L, and blood pressure 119/55. GENERAL: Awake, alert, and oriented x3, in no distress. HEENT: Normocephalic, atraumatic. NECK: Supple. LUNGS: Clear. CARDIOVASCULAR: S1 and S2. No S3 or S4. No murmurs. No rubs. ABDOMEN: Soft. Positive bowel sounds. EXTREMITIES: No edema. SKIN: Warm and dry. DIAGNOSTIC STUDIES: Laboratory work was reviewed. White count of 7, hemoglobin of 9.7, hematocrit 30, platelet count of 267. Chemistry with a sodium of 134, potassium 3.6, chloride of 97, carbon dioxide of 27, anion gap of 14, BUN of 29, creatinine 2.7, GFR of 18. Troponin was in the indeterminate range consistent with her history of end-stage renal disease at 0.04, then 0.03, and then 0.04. Triglycerides of 76, cholesterol of 108, LDL of 66, HDL of 27. COVID-19 PCR was not detected. Echocardiogram performed earlier today showed an EF of 25% with a very dyssynchronous left ventricle and severely dilated left atrium. RVSP was at 40 mmHg. ASSESSMENT AND PLAN: 1. Chest pain. Likely noncardiac. She has fibromyalgia and this left arm fracture, which maybe the cause of her chest pain. At this point, if we were to do a heart catheterization, have to stent any of the bypasses, she has basically had in-stent restenoses with every single type of stents. We placed bare metals and drug-eluting within 4 months. She was already restenosed. She is not a good candidate for stenting. At this time, we will continue medical therapy and would only cath her troponins were to increase exponentially, but currently there at a level that would suggest just be related to end-stage renal disease. 2. Ischemic cardiomyopathy. 3. Left bundle-branch block. 4. Left ventricular dyssynchrony. PLAN: We will ask Electrophysiology to evaluate. LV seems so dyssynchronous and her LV function actually has decreased since her bypass, which would suggest to me that her left bundle-branch block needs to be corrected. We will ask EP to evaluate for consideration of a biventricular AICD to resynchronize her LV. Thank you for letting us to participate in the care of your patient. We will follow. Job ID: [id number]
--- NOTE | 2020-05-01 18:21 | RAD ---
RIGHT HUMERUS THREE VIEWS: 05/01/20 HISTORY: Arm pain. History of humerus fracture. COMPARISON: 04/17/20. The bones appear slightly bones appear slightly demineralized. The right humeral neck fracture has a fairly similar appearance to the prior exam. Fracture appears to extend to involve the greater tubero sity region. IMPRESSION: Stable humeral fracture. POS: OFF
--- NOTE | 2020-05-01 18:28 | PDOC.HOSPP ---
- Subjective Encounter Date: 05/01/20 Encounter Time: 13:00 Subjective: The patient is doing well.She denies chest pain. She states it lasted for a few hours yesterday and then self-resolved. She reports severe right arm pain radiating downher hand with stabbing pains in her hand. She saw orthopedic doctor who told her to wear a sling for a week Patient does not want to go back to her longterm. She is upset the sling keeps being taken off of her by techs. She wants to go home with home health - Objective Vital Signs & Weight: Vital Signs (12 hours) Temp Pulse Resp BP Pulse Ox 05/01/20 15:50 98.4 F 93 16 106/57 L 97 05/01/20 12:45 97.4 F L 97 16 119/55 L 99 05/01/20 09:02 98 05/01/20 08:58 97.5 F L 109 H 16 117/59 L 98 Weight Weight 206 lb 2.115 oz I&O: 04/30/20 05/01/20 05/02/20 06:59 06:59 06:59 Intake Total 240 Output Total 0 Balance 240 Result Diagrams: 05/01/20 04:03 05/01/20 17:15 Additional Labs: Accuchecks 05/01/20 05/01/20 04/30/20 11:17 06:05 23:12 POC Glucose 92 112 H 149 H Hospitalist ROS - Review of Systems Constitutional: denies: fever, chills - Medication Medications: Active Medications Generic Name Dose Route Start Last Admin Trade Name Freq PRN Reason Stop Dose Admin Hydrocodone Bitart/Acetaminophen 2 tab 05/01/20 01:13 05/01/20 16:04 Hydrocodone/Acetaminophen 5/325 Mg Tablet PO 2 tab Q4H PRN Administration Severe Pain (7-10) Ondansetron HCl 4 mg 04/30/20 19:39 05/01/20 10:50 Ondansetron Pf 4 Mg/2 Ml Vial IVP 4 mg Q6H PRN Administration Nausea/Vomiting - Exam General Appearance: NAD, awake alert Eye: PERRL, anicteric sclera ENT: normocephalic atraumatic, no oropharyngeal lesions Neck: no JVD Heart: RRR, no murmur, no gallops, no rubs Respiratory: CTAB, no wheezes, no rales, no ronchi Gastrointestinal: soft, non-tender, non-distended, normal bowel sounds Extremities: no cyanosis, no clubbing, no edema Extremities - other findings: right shoulder tenderness, arm is in a sling Skin: normal turgor, no lesions, no rashes Hosp A/P - Plan The patient is doing well.She denies chest pain. She states it lasted for a few hours yesterday and then self-resolved. She reports severe right arm pain radia ting downher hand with stabbing pains in her hand. She saw orthopedic doctor who told her to wear a sling for a week Patient does not want to go back to her longterm. She is upset the sling keeps being taken off of her by [employer]. She wants to go home with home health This is a 64 year old female patient with past medical history of CAD, CHF, ESRD who presented with chest pain during dialysis Chest pain- resolved CAD s/p CABG - cardiology was consulted. No recommendations currently. She had CABG last month - on plavix, lisinopril, ranolazine LBBB - cardiology was consulted and recommended EP evaluation Systolic heart failure - ECHO shows EF 25-30% today. Continue torsemide Right humeral neck fracture - repeat shoulder Xray. Will discuss with ortho pending results ESRD - continue dialysis as scheduled Chronic respiratory failure - on 2L nasal cannula
[2020-05-01] MEDS ORDERED: Atorvastatin Calcium 40 MG TAB PO SCH (21:00)
[2020-05-01] MEDS: Apixaban 5 MG TAB PO SCH (21:06)
[2020-05-01] MEDS: Carvedilol 6.25 MG TAB PO SCH (21:07)
[2020-05-01] MEDS: Isosorbide Dinitrate 5 MG TAB PO SCH (21:07)
[2020-05-01] MEDS: ALPRAZolam 0.5 MG TAB PO PRN (21:08)
[2020-05-02] MEDS: HYDROcodone/Acetaminophen 5/325 mg Tablet PO PRN (01:30)
[2020-05-02] MEDS: HumaLOG 300 UNITS/3 ML VIAL SC PRN ×2 (05:57→12:11)
[2020-05-02] MEDS: Isosorbide Dinitrate 5 MG TAB PO SCH ×2 (08:38→20:41)
[2020-05-02] MEDS: Amiodarone 200 MG TAB PO SCH (08:39)
[2020-05-02] MEDS: Carvedilol 6.25 MG TAB PO SCH ×2 (08:39→20:41)
[2020-05-02] MEDS: Apixaban 5 MG TAB PO SCH ×2 (08:40→20:43)
[2020-05-02] MEDS: Lisinopril 10 MG TAB PO SCH (08:40)
[2020-05-02] MEDS: Ascorbic Acid 500 mg Chewable Tablet PO SCH (08:40)
[2020-05-02] MEDS: Clopidogrel Bisulfate 75 MG TAB PO SCH (08:40)
[2020-05-02] MEDS ORDERED: Torsemide 20 MG TAB PO SCH (09:00)
[2020-05-02] MEDS ORDERED: Adenosine 6 MG/2 ML VIAL ONE (12:07)
[2020-05-02] MEDS: oxyCODONE 5 MG TAB PO PRN ×2 (12:10→20:41)
--- NOTE | 2020-05-02 13:26 | PRG ---
DATE OF SERVICE: 05/02/2020 SUBJECTIVE: A 64-year-old female, being seen for end-stage renal disease. The patient denied any nausea, vomiting, or chest pain. OBJECTIVE: GENERAL: The patient is awake and alert. VITAL SIGNS: Afebrile, pulse 82, breathing at 16, blood pressure 128/56. HEENT: Head normocephalic and atraumatic. Eyes intact, no ulcers. Nose intact, no ulcers. Ears intact, no ulcers. NECK: Supple. No JVD. CHEST: Symmetrical and clear. CARDIOVASCULAR: Shows S1 and S2, no rub, no murmur. GASTROINTESTINAL: Abdomen is soft, bowel sounds positive. EXTREMITIES: Show no edema or ulcers. SKIN: Shows no rash or petechiae. MUSCULOSKELETAL: Shows no joint swelling or stiffness. GENITOURINARY: Shows no Howard or CVA tenderness. NEUROLOGIC: Motor intact. Cranial nerves intact. LABORATORY DATA: Labs show hemoglobin 9.1. Creatinine 3.8. ASSESSMENT: 1. Stage 6 chronic kidney disease. Plan dialysis per schedule. 2. Hypertension, stable. 3. Anemia, stable. 4. Medication based on GFR appropriate. Job ID: [id number]
--- NOTE | 2020-05-02 13:58 | RAD ---
XR Forearm Rt 2 View STANDARD History: Pain after fall Comparison: None. Findings: Forearm is intact. No acute displaced fracture. High-grade soft tissue swelling. Although e valuation is limited. Surgical clips along the elbow. Impression: No acute fracture.
[2020-05-02] MEDS ORDERED: Cholecalciferol 1,000 UNITS (25 MCG) TAB PO SCH (15:00)
--- NOTE | 2020-05-02 15:34 | RAD ---
Exam: XR Elbow Rt 4 View STANDARD HISTORY: Right arm pain post fall. COMPARISON: None FINDINGS: No acute fracture, dislocation, or other acute osseous abnormality is identified. Subcutaneous edema is seen dorsal to the distal right arm and proximal forearm. Multiple surgical cli ps are seen anterior to the elbow. IMPRESSION: No acute osseous abnormality is identified. Subcutaneous soft tissue swelling.
--- NOTE | 2020-05-02 15:37 | RAD ---
Exam: XR Hand Rt 3 View STANDARD HISTORY: Right hand pain after a fall. COMPARISON: None FINDINGS: There is osteoarthritis involving the first carpal metacarpal joint with scattered mild osteoarthriti s involving the interphalangeal joints. No fracture, dislocation, or other osseous abnormality is seen. Vascular calcifications are seen at the level of the wrist. IMPRESSION: 1. No acute osseous abnormality is identified. If patient's pain persists, follow-up imaging is advis ed. 2. Osteoarthritis.
--- NOTE | 2020-05-02 15:39 | RAD ---
Exam: XR Wrist 3 Rt View STANDARD HISTORY: Right wrist pain after a fall COMPARISON: None FINDINGS: There is osteoarthritis involving the first carpal metacarpal joint and to a lesser extent greater mu ltangular joint. No fracture or dislocation is seen involving the right wrist. There is osteopenia. Vascular calcifications are seen at the level of the distal forearm and wrist. Mild subcutaneous soft tissue swelling is seen at the level of the distal forearm. IMPRESSION: No acute osseous abnormality is identified. If there is strong clinical concern for fracture of the n avicular bone, follow-up views of the wrist are recommended in 4-7 days after conservative management to evaluate for an occult fracture.
--- NOTE | 2020-05-02 16:35 | PDOC.CPN ---
- Subjective Date: 05/02/20 Time: 16:32 Interval history: Her biggest complaint is pain from her shoulder. She denies angina. No SOB. - Review of Systems General: denies: fever/chills, weight/appetite/sleep changes, night sweats, fatigue Respiratory: denies: cough, congestion, shortness of breath, exercise intolerance Cardiovascular: denies: chest pain, palpitation, edema, paroxysmal nocturnal dyspnea, orthopnea Gastrointestinal: denies: nausea, vomiting, diarrhea, constipation, abd pain, GI bleeding Musculoskeletal: reports: pain. denies: tenderness, stiffness, swelling, arthritis/arthralgias Neurological: denies: numbness, syncope, seizure, weakness - Objective Allergies/Adverse Reactions: Allergies Allergy/AdvReac Type Severity Reaction Status Date / Time adhesive tape Allergy Verified 04/30/20 22:01 aspirin Allergy Verified 04/30/20 22:01 latex Allergy Verified 04/30/20 22:01 meperidine [From Demerol] Allergy Verified 04/30/20 22:01 morphine Allergy Verified 04/30/20 22:01 lace Allergy Uncoded 04/30/20 22:01 Visit Medications: Current Medications Acetaminophen (Acetaminophen 325 Mg Tab) 650 mg PO Q4H PRN PRN Reason: Headache/Fever/Mild Pain (1-3) Alprazolam (Alprazolam 0.5 Mg Tab) 0.5 mg PO TIDPRN PRN PRN Reason: Anxiety Last Admin: 05/01/20 21:08 Dose: 0.5 mg Documented by: Amiodarone HCl (Amiodarone 200 Mg Tab) 200 mg PO DAILY COUNT INCLUDES THE [facility] Last Admin: 05/02/20 08:39 Dose: 200 mg Documented by: Apixaban (Apixaban 5 Mg Tab) 2.5 mg PO BID COUNT INCLUDES THE [facility] Last Admin: 05/02/20 08:40 Dose: 2.5 mg Documented by: Ascorbic Acid (Ascorbic Acid 500 Mg Chewable Tablet) 500 mg PO DAILY COUNT INCLUDES THE [facility] Last Admin: 05/02/20 08:40 Dose: 500 mg Documented by: Atorvastatin Calcium (Atorvastatin Calcium 40 Mg Tab) 40 mg PO [facility] Carvedilol (Carvedilol 6.25 Mg Tab) 12.5 mg PO BID COUNT INCLUDES THE [facility] Last Admin: 05/02/20 08:39 Dose: 12.5 mg Documented by: Cholecalciferol (Cholecalciferol 1,000 Units (25 Mcg) Tab) 1,000 units PO DAILY COUNT INCLUDES THE [facility] Cholecalciferol (Cholecalciferol 1,000 Units (25 Mcg) Tab) 1,000 units PO NOW COUNT INCLUDES THE [facility] Stop: 05/02/20 17:00 Last Admin: 05/02/20 15:48 Dose: 1,000 units Documented by: Clopidogrel Bisulfate (Clopidogrel Bisulfate 75 Mg Tab) 75 mg PO DAILY COUNT INCLUDES THE [facility] Last Admin: 05/02/20 08:40 Dose: 75 mg Documented by: Dextrose/Water (Dextrose 50% Abboject 50 Ml Syringe) 25 gm SLOW IVP PRN PRN PRN Reason: Hypoglycemia Glucagon (Glucagon 1 Mg/Ml Vial) 1 mg IM PRN PRN PRN Reason: Hypoglycemia Dextrose/Water (D5w) 1,000 mls @ 0 mls/hr IV .Q0M PRN PRN Reason: Hypoglycemia Insulin Human Lispro (Humalog 300 Units/3 Ml Vial) 0 units SC .MILD SLIDING SCALE PRN PRN Reason: Mild Correctional Scale Last Admin: 05/02/20 12:11 Dose: 3 unit Documented by: Insulin Human Lispro (Humalog 300 Units/3 Ml Vial) 0 units SC .BEDTIME SLIDING SC PRN PRN Reason: Bedtime Correctional Scale Isosorbide Dinitrate (Isosorbide Dinitrate 5 Mg Tab) 10 mg PO BID COUNT INCLUDES THE [facility] Last Admin: 05/02/20 08:38 Dose: 10 mg Documented by: Lisinopril (Lisinopril 10 Mg Tab) 5 mg PO DAILY COUNT INCLUDES THE [facility] Last Admin: 05/02/20 08:40 Dose: 5 mg Documented by: Nitroglycerin (Nitroglycerin 0.4 Mg Tab (25 Tab Bottle)) 0.4 mg SL Q5MIN PRN PRN Reason: Chest Pain Ondansetron HCl (Ondansetron Pf 4 Mg/2 Ml Vial) 4 mg IVP Q6H PRN PRN Reason: Nausea/Vomiting Last Admin: 05/01/20 21:06 Dose: 4 mg Documented by: Oxycodone HCl (Oxycodone 5 Mg Tab) 5 mg PO Q4H PRN PRN Reason: Moderate to Severe Pain (6-10) Last Admin: 05/02/20 12:10 Dose: 5 mg Documented by: Ranolazine (Ranolazine 500 Mg Tab) 500 mg PO BID COUNT INCLUDES THE [facility] Last Admin: 05/02/20 08:39 Dose: 500 mg Documented by: Torsemide (Torsemide 20 Mg Tab) 20 mg PO DAILY CECILIA Vital Signs & Weight: Vital Signs Temp Pulse Pulse Pulse Resp BP BP 05/02/20 15:36 97.6 F 88 14 05/02/20 11:22 97.8 F 92 15 05/02/20 09:55 105 H 104 H 93/51 L 87/42 L 05/02/20 08:35 98.1 F 83 18 BP Pulse Ox 05/02/20 15:36 105/52 L 95 05/02/20 11:22 128/56 L 96 05/02/20 09:55 05/02/20 08:35 102/58 L 98 Weight 207 lb 3.752 oz - Physical Exam General: alert & oriented x3 HEENT: mucus membranes moist Neck: supple neck Cardiac: irregularly regular Lungs: clear to auscultation Neuro: grossly intact Abdomen: active bowel sounds Extremities: 1+ LE edema Skin: clear Musculoskeletal: no pain - Labs Result Diagrams: 05/01/20 04:03 05/02/20 09:49 Troponin/CKMB CK-MB (CK-2) 1.1 ng/mL (0-6.6) 04/30/20 21:54 Troponin I 0.043 ng/mL (< 0.028) H 05/01/20 00:49 - Telemetry Supraventricular conduction: atrial fibrillation - Assessment/Plan Assessment/Plan: 1. Ischemic CM EF at 20-25% 2. Chets pain, no recurrence 3. Right humeral fracture. 4. LBBB 5. Left ventricular dyssynchrony. 6. ESRD. PLAN: - EP evaluation for consideration of BiV AICD - Continue HD per nephrology.
--- NOTE | 2020-05-02 19:57 | PDOC.HOSPP ---
- Subjective Encounter Date: 05/02/20 Encounter Time: 10:00 Subjective: The patient continues to complain of severe right arm pain radiating down to her hand. She states her hand pain is throbbing. She reported improvement in oxycodone. She states she fell on her right arm . Discussed with surgery who recommended non-operative management She denies chest pain or SOB - Objective Vital Signs & Weight: Vital Signs (12 hours) Temp Pulse Pulse Pulse Resp BP BP 05/02/20 15:36 97.6 F 88 14 05/02/20 11:22 97.8 F 92 15 05/02/20 09:55 105 H 104 H 93/51 L 87/42 L 05/02/20 08:35 98.1 F 83 18 BP Pulse Ox 05/02/20 15:36 105/52 L 95 05/02/20 11:22 128/56 L 96 05/02/20 09:55 05/02/20 08:35 102/58 L 98 Weight Weight 207 lb 3.752 oz I&O: 05/01/20 05/02/20 05/03/20 06:59 06:59 06:59 Intake Total 240 480 480 Output Total 0 Balance 240 480 480 Result Diagrams: 05/01/20 04:03 05/02/20 09:49 Additional Labs: Accuchecks 05/02/20 05/02/20 05/01/20 11:32 05:36 20:02 POC Glucose 207 H 171 H 130 H Hospitalist ROS - Review of Systems Constitutional: denies: fever, chills - Medication Medications: Active Medications Generic Name Dose Route Start Last Admin Trade Name Freq PRN Reason Stop Dose Admin Alprazolam 0.5 mg 05/01/20 19:52 05/01/20 21:08 Alprazolam 0.5 Mg Tab PO 0.5 mg TIDPRN PRN Administration Anxiety Amiodarone HCl 200 mg 05/02/20 09:00 05/02/20 08:39 Amiodarone 200 Mg Tab PO 200 mg DAILY CECILIA Administration Apixaban 2.5 mg 05/01/20 21:00 05/02/20 08:40 Apixaban 5 Mg Tab PO 2.5 mg BID CECILIA Administration Ascorbic Acid 500 mg 05/02/20 09:00 05/02/20 08:40 Ascorbic Acid 500 Mg Chewable Tablet PO 500 mg DAILY CECILIA Administration Carvedilol 12.5 mg 05/01/20 21:00 05/02/20 08:39 Carvedilol 6.25 Mg Tab PO 12.5 mg BID CECILIA Administration Clopidogrel Bisulfate 75 mg 05/02/20 09:00 05/02/20 08:40 Clopidogrel Bisulfate 75 Mg Tab PO 75 mg DAILY CECILIA Administration Insulin Human Lispro 0 units 04/30/20 19:44 05/02/20 12:11 Humalog 300 Units/3 Ml Vial SC 3 unit .MILD SLIDING SCALE PRN Administration Mild Correctional Scale Isosorbide Dinitrate 10 mg 05/01/20 21:00 05/02/20 08:38 Isosorbide Dinitrate 5 Mg Tab PO 10 mg BID [facility] Administration Lisinopril 5 mg 05/02/20 09:00 05/02/20 08:40 Lisinopril 10 Mg Tab PO 5 mg DAILY CECILIA Administration Ondansetron HCl 4 mg 04/30/20 19:39 05/01/20 21:06 Ondansetron Pf 4 Mg/2 Ml Vial IVP 4 mg Q6H PRN Administration Nausea/Vomiting Oxycodone HCl 5 mg 05/02/20 10:44 05/02/20 12:10 Oxycodone 5 Mg Tab PO 5 mg Q4H PRN Administration Moderate to Severe Pain (6-10) Ranolazine 500 mg 05/01/20 21:00 05/02/20 08:39 Ranolazine 500 Mg Tab PO 500 mg BID CECILIA Administration - Exam General Appearance: NAD, awake alert Eye: PERRL, anicteric sclera ENT: normocephalic atraumatic, no oropharyngeal lesions Neck: no JVD Heart: RRR, no murmur, no gallops, no rubs Respiratory: CTAB, no wheezes, no rales, no ronchi Gastrointestinal: soft, non-tender, non-distended, normal bowel sounds, no palpable masses Extremities - other findings: right shoulder tenderness, elbow tenderness, wrist tenderness Skin - other findings: right arm swelling Neurological: normal sensation to touch, no weakness Musculoskeletal - other findings: decreased ROM right arm. Right arm in sling Psychiatric: normal affect, normal behavior Hosp A/P - Plan ECHO: Ef 25-30%, moderate MR, moderate TR Wrist Xray 05/02: no acute abnormality Right hand X ray 05/02: no acute abnormality. Osteoarthritis first carpal metacarpal joint with mild osteoarthritis in the interphalangeal joints. vascular calcifications at wrist Right elbow Xray: subcutaneous soft tissue swelling. No fracture Right forearm X ray: no fracture Right humerus Xray: stable humeral fracture Chest X ray: moderate right pleural effusion and vascular engorgement This is a 64 year old female patient with past medical history of CAD, CHF, ESRD who presented with chest pain during dialysis #Chest pain- resolved #CAD s/p CABG #Systolic heart failure #LBBB - cardiology was consulted. She had CABG last month, no cath needed. ECHO showed Ef 25-30%, therefore EP consulted for biventricular ICD placement - on plavix, lisinopril, ranolazine Right humeral neck fracture - repeat shoulder humerus Xray showed stable fracture. Wrist, arm, elbow Xray showed no fracture but some soft tissue swelling - discussed with ortho, continue nonoperative management - PT and OT ordered. Patient to be non-weightbearing. Continue wearing a sling - started oxycodone 5 mg q4 hours prn for pain ESRD - continue dialysis as scheduled - reduced torsemide to 20 mg daily Hypotension - BP 80 systolic, reduced torsemide to 20 mg daily Acute hypoxic respiratory failure - likely from pulmonary edema - was on 2L nasal cannula, weaned down to room air. She did have pleural effusion on X ray, will repeat tomorrow Dispo: pending ICD placement
[2020-05-02] MEDS: Atorvastatin Calcium 40 MG TAB PO SCH (20:42)
[2020-05-02] MEDS: ALPRAZolam 0.5 MG TAB PO PRN (20:43)
[2020-05-02] MEDS: Acetaminophen 325 MG TAB PO PRN (23:28)
[2020-05-02] MEDS: Lidocaine 5% Patch TD SCH (23:28)
[2020-05-03] MEDS: HumaLOG 300 UNITS/3 ML VIAL SC PRN (06:03)
[2020-05-03 07:47] LABS: Glucose 170 mg/dL (80-115)
[2020-05-03] MEDS: oxyCODONE 5 MG TAB PO PRN ×2 (08:30→20:44)
[2020-05-03] MEDS: Apixaban 5 MG TAB PO SCH ×2 (08:30→20:46)
[2020-05-03] MEDS: Carvedilol 6.25 MG TAB PO SCH ×2 (08:30→20:46)
[2020-05-03] MEDS: Isosorbide Dinitrate 5 MG TAB PO SCH ×2 (08:31→20:48)
[2020-05-03 09:08] LABS: Mean Corpuscular HGB CONC 30.4 g/dL (32.0-36.0); Mean Corpuscular Hemoglobin 26.8 pg (27.0-31.0); Mean Corpuscular Volume 88.1 fL (78.0-98.0); Mean Platelet Volume 8.3 fL (7.4-10.4); Platelet Count 223 thou/uL (130-400); RBC Distribution Width 16.3 % (11.5-14.5); Red Blood Cell (RBC) Count 3.36 mill/uL (4.20-5.40); White Blood Cell (WBC) Count 6.3 thou/uL (4.8-10.8)
[2020-05-03 09:22] LABS: Anion Gap 17 mmol/L (10-20); BUN (Urea Nitrogen) 57 mg/dL (9.8-20.1); Calc. Creatinine Clearance 18 mL/min (70-130); Calcium 8.6 mg/dL (7.8-10.44); Carbon Dioxide 24 mmol/L (23-31); Chloride 93 mmol/L (98-107); Estimated GFR-MDRD 9; Glucose 148 mg/dL (80-115); Potassium 4.1 mmol/L (3.5-5.1); Sodium 130 mmol/L (136-145)
[2020-05-03] MEDS ORDERED: Iopamidol 370 76% 50 ML VIAL FS ONE (09:41)
[2020-05-03 09:43] LABS: Band 3 % (5-11); Eosinophils 1 % (0-10); Hypochromia SLIGHT = 6-15 cells (100X) (0-5/hpf); Lymphocytes 23 % (21-51); MDiff Complete? YES; Monocytes 7 % (0-10); Neutrophil 65 % (42-75); Polychromasia SLIGHT = 2-3 cells (100X) (0-2/hpf)
[2020-05-03] MEDS ORDERED: Heparin 10,000 UNITS/ 10 ML VIAL ONE (10:04)
--- NOTE | 2020-05-03 11:31 | PQF ---
CLINICAL DOCUMENTATION CLARIFICATION FORM: Dear Dr. Rowe Date: 05/03/20 Please exercise your independent, professional judgment in responding to the clarification form. Clinical indicators are provided on the bottom of this form for your review. Please check appropriate box(es) to clarify if the following diagnosis has been ruled in our ruled out: NSTEMI [ ] Ruled in diagnosis [ ] Continue to treat [ ] Resolved [ ] Ruled out diagnosis [ ] Improving [X ] Cannot rule out diagnosis [ ] Other diagnosis [ ] Unable to determine In addition, please specify: Present on Admission (POA): [x ] Yes [ ] No [ ] Unable to determine For continuity of documentation, please document condition throughout progress notes and discharge summary. Thank You. To be completed by CDI/Coding staff for physician review: CLINICAL INDICATORS - SIGNS / SYMPTOMS / LABS / RESULTS AND LOCATION IN ER NOTE: "NSTEMI" TROPONINS 0.042 / 0.032 / 0.043 RISKS: ESRD (H&P) CAD (H&P) HTN (H&P) DIABETES (H&P) CHF (H&P) TREATMENT: LOVENOX (ER) PLAVIX (05/02-PRESENT) ISORDIL (05/01-PRESENT) RANEXA (05/01-PRESENT) CARDIOLOGY CONSULT 05/01 CDS Signature: Alison Loo RN Phone #: [phone] Date: 05/03/20 This is a permanent part of the Medical Record [facility]
--- NOTE | 2020-05-03 11:54 | PRG ---
DATE OF SERVICE: 05/03/2020 SUBJECTIVE: Patient was seen and examined at bedside and overnight events noted. Patient denies any shortness of breath or chest pain or palpitation. No history of nausea or vomiting or diarrhea or fever or chills or cramps. OBJECTIVE: GENERAL: This is a well-built female, in no apparent distress. VITAL SIGNS: Temperature . Heart Rate 97. Respiratory rate . Blood Pressure 111/60. HEENT: Atraumatic, normocephalic. Oral mucosa is moist. NECK: Supple. CARDIOVASCULAR: S1, S2 heard. Rate and rhythm regular. RESPIRATORY: Clear to auscultation. GASTROINTESTINAL: Abdomen is soft. MUSCULOSKELETAL: No tenderness. No edema. DERMATOLOGIC: No skin rash. NEUROLOGIC: Alert and awake and oriented x3. No focal neurologic deficits. Moving all the extremities. PSYCHIATRIC: Mood and affect normal. LABORATORY DATA: Potassium 4.1, BUN 57, and creatinine 4.7. ASSESSMENT AND PLAN: 1. End-stage renal disease. Continue hemodialysis as tolerated. 2. Edema, controlled. 3. Hypertension. 4. Hyponatremia. 5. Anemia of chronic disease. Continue dialysis as tolerated, Sunday, Sunday, and Sunday. Job ID: [id number]
--- NOTE | 2020-05-03 12:43 | CON ---
DATE OF CONSULTATION: 05/03/2020 REASON FOR CONSULTATION: Consideration of biventricular ICD. HISTORY OF PRESENT ILLNESS: Ms. Mendez is a 64-year-old woman, well known to Dr. Peter for history of coronary artery disease with multiple stents always resulting in in-stent restenosis within a few months. She has a history of systolic heart failure with an LVEF of approximately 40%. She underwent coronary artery bypass grafting surgery nearly a month ago and is now seen to have severely reduced LVEF of 25%. On echocardiogram, her ventricles appear dyssynchronous and consideration for biventricular ICD has been requested given her worsening LVEF and left ventricular dyssynchrony. She came in with midsternal chest pain, radiated to the left arm, but had recently fallen and broken her arm in two places. Cardiac evaluation was performed and did not feel that this represented a significant ischemic event. Troponins were indeterminate, possibly related to her end-stage renal disease and the chest pain may have been a component of her recent arm fracture. PAST MEDICAL HISTORY: 1. Coronary artery disease. a. Multiple cardiac stents in both drug-eluting and bare-metal resulting in in- stent restenosis within a few months. b. Coronary artery bypass grafting surgery on 03/19/2020 with NDIAYE to the LAD and saphenous graft to the posterior lateral branch. 2. Atrial fibrillation post bypass prompting amiodarone and cardioversion on 03/29/2020. 3. End-stage renal disease requiring dialysis. 4. Chronic systolic heart failure. a. Echocardiogram 09/04/2019, LVEF 40% to 45%. b. Echocardiogram 02/17/2020, LVEF 40% to 45%. c. Echocardiogram 05/01/2020, LVEF 25% to 30%, left ventricle is dyssynchronous. 5. Fibromyalgia. 6. Anxiety and depression. 7. Chronic lower back pain. 8. Hypothyroidism. 9. Type 2 diabetes. 10. COPD. 11. Left bundle branch block. 12. Oral anticoagulation on Eliquis given atrial fibrillation. PAST SURGICAL HISTORY: 1. Hysterectomy. 2. Coronary artery bypass grafting, 03/19/2020. 3. Right arm surgery. 4. Left shoulder cyst removal. FAMILY HISTORY: Noncontributory. SOCIAL HISTORY: Negative for alcohol, tobacco, or illicit drug use. REVIEW OF SYSTEMS: A 12-point review of systems was performed and is unremarkable except that listed above in HPI. HOME MEDICATIONS: Include; 1. Trazodone 50 mg at bedtime. 2. Glipizide 20 mg b.i.d. 3. Demadex 40 mg daily. 4. Ranexa 500 mg b.i.d. 5. Pregabalin 100 mg p.o. b.i.d. 6. Lisinopril 5 mg daily. 7. Levothyroxine 50 mcg daily. 8. Isordil 10 mg b.i.d. 9. Lantus 40 units subcu at bedtime. 10. NovoLog sliding scale t.i.d. 11. Plavix 75 mg daily. 12. Vitamin D 1000 units daily. 13. Coreg 12.5 mg b.i.d. 14. Atorvastatin 40 mg p.o. daily. 15. Vitamin C 500 mg p.o. daily. 16. Eliquis 2.5 mg b.i.d. 17. Amiodarone 200 mg daily. 18. Tylenol No. 3 one tablet q.4 hours p.r.n. 19. Xanax 0.5 mg p.o. t.i.d. p.r.n. OBJECTIVE: VITAL SIGNS: 5 feet 8 inches and 211 pounds. Temperature 97.7, pulse 97, respirations 16, oxygen 98% on room air, and blood pressure 111/60. GENERAL: The patient is alert and oriented. Speech is clear. Affect is appropriate. She is in no apparent distress at the time of exam. NECK: Supple without jugular venous distention. There is no lymphadenopathy. Trachea is midline. LUNGS: Clear to auscultation bilaterally without wheezes, crackles, or rhonchi. Slightly diminished in the bases. HEART: Her heart rate is irregularly irregular with crisp S1 and S2. There is no murmur, rub, or gallop appreciated. ABDOMEN: Soft with positive bowel sounds noted throughout. There are no masses. Hepatojugular reflux is negative. EXTREMITIES: Warm and dry to touch without clubbing, cyanosis, or edema. NEUROLOGIC: Grossly intact and nonfocal. Gait was not assessed. DATABASE: Laboratory results were reviewed. Hemoglobin 9.0, hematocrit 29.6, and platelet count 223. Chemistry; sodium 130, potassium 4.1, and creatinine 4.79. Troponins in the indeterminate positive range less than 0.1. BNP on admission was 983. Liver enzymes within normal ranges on 04/30/2020. Telemetry and EKGs, sinus rhythm with a left bundle-branch block. Echocardiogram from this admission showed LVEF 25% to 30% with a very dyssynchronous left ventricle and a severely dilated left atrium. RVSP 40 mmHg. IMPRESSION: 1. Left ventricular dyssynchrony. 2. Acute on chronic systolic heart failure with worsening LVEF despite recent coronary artery bypass grafting. a. NYHA class 3 functional status. 3. Severe coronary artery disease. 4. Anemia likely of chronic disease. 5. End-stage renal disease on dialysis. 6. Open right humeral neck fracture, nonoperative per Ortho. 7. Atypical chest pain. PLAN AND RECOMMENDATIONS: I had a long discussion with Ms. Mendez today regarding her worsening systolic heart failure despite her recent bypass surgery. With the presence of her left bundle-branch block and the evident left ventricular dyssynchrony on her echocardiogram, this appears to be the driving factor with the recent decline in her ejection fraction, but she has historically had systolic heart failure. At this point impantation of a resynchronization device will be necessary to improve her congestive heart failure status. To avoid reoperation, BiV ICD device will be implanted as a primary prophylaxis of sudden cardiac within the usual waiting period of CABG. We also discussed the purpose of an ICD in the prevention of sudden cardiac and in the setting of ischemic recurrent ischemic cardiomyopathy, which she certainly has. She voices understanding and wishes to proceed with ICD implant, which could likely be arranged later today. We have discussed the risks, benefits, and alternatives. She has already been on medical therapy for heart failure and EF has continued to decline, so implant at this time is certainly indicated and her bypass was approximately 6 weeks ago. Thank you for allowing me to participate in the care of this patient. Job ID: [id number] [facility] HOSPITALDarrell
[2020-05-03] MEDS ORDERED: Gentamicin 80 MG/2 ML VIAL ONE (13:03)
[2020-05-03] MEDS ORDERED: CEFAZOLIN 1 GM VIAL ONE (13:03)
[2020-05-03] MEDS ORDERED: Lidocaine 1% (PF) 30 ML VIAL ONE (13:04)
[2020-05-03] MEDS ORDERED: Midazolam HCl 2 mg/2 ml Vial ONE (13:11)
[2020-05-03] MEDS ORDERED: Fentanyl 100 MCG/2 ML VIAL ONE (13:11)
[2020-05-03] MEDS ORDERED: Ketamine 50 MG/ML (10ML VIAL) ONE (13:12)
[2020-05-03] MEDS ORDERED: Propofol 500 MG/50 ML VIAL ONE (13:12)
[2020-05-03] MEDS ORDERED: Phenylephrine 10 MG/ML VIAL ONE (13:22)
--- NOTE | 2020-05-03 14:34 | PDOC.CPN ---
- Subjective Date: 05/03/20 Time: 11:35 Interval history: No new issues. Right arm pain from broken arm. - Review of Systems General: reports: fatigue. denies: fever/chills, weight/appetite/sleep changes, night sweats Respiratory: reports: shortness of breath, exercise intolerance. denies: cough, congestion Cardiovascular: denies: chest pain, palpitation, edema, paroxysmal nocturnal dyspnea, orthopnea Gastrointestinal: denies: nausea, vomiting, diarrhea, constipation, abd pain, GI bleeding Musculoskeletal: reports: pain. denies: tenderness, stiffness, swelling, arthritis/arthralgias Neurological: denies: numbness, syncope, seizure, weakness - Objective Allergies/Adverse Reactions: Allergies Allergy/AdvReac Type Severity Reaction Status Date / Time adhesive tape Allergy Verified 04/30/20 22:01 aspirin Allergy Verified 04/30/20 22:01 latex Allergy Verified 04/30/20 22:01 meperidine [From Demerol] Allergy Verified 04/30/20 22:01 morphine Allergy Verified 04/30/20 22:01 lace Allergy Uncoded 04/30/20 22:01 Visit Medications: Current Medications Acetaminophen (Acetaminophen 325 Mg Tab) 650 mg PO Q4H PRN PRN Reason: Headache/Fever/Mild Pain (1-3) Last Admin: 05/02/20 23:28 Dose: 650 mg Documented by: Alprazolam (Alprazolam 0.5 Mg Tab) 0.5 mg PO TIDPRN PRN PRN Reason: Anxiety Last Admin: 05/02/20 20:43 Dose: 0.5 mg Documented by: Amiodarone HCl (Amiodarone 200 Mg Tab) 200 mg PO DAILY [facility] Last Admin: 05/02/20 08:39 Dose: 200 mg Documented by: Apixaban (Apixaban 5 Mg Tab) 2.5 mg PO BID [facility] Last Admin: 05/03/20 08:30 Dose: 2.5 mg Documented by: Ascorbic Acid (Ascorbic Acid 500 Mg Chewable Tablet) 500 mg PO DAILY [facility] Last Admin: 05/02/20 08:40 Dose: 500 mg Documented by: Atorvastatin Calcium (Atorvastatin Calcium 40 Mg Tab) 40 mg PO HS [facility] Last Admin: 05/02/20 20:42 Dose: 40 mg Documented by: Carvedilol (Carvedilol 6.25 Mg Tab) 12.5 mg PO BID [facility] Last Admin: 05/03/20 08:30 Dose: 12.5 mg Documented by: Cholecalciferol (Cholecalciferol 1,000 Units (25 Mcg) Tab) 1,000 units PO DAILY [facility] Clopidogrel Bisulfate (Clopidogrel Bisulfate 75 Mg Tab) 75 mg PO DAILY [facility] Last Admin: 05/02/20 08:40 Dose: 75 mg Documented by: Dextrose/Water (Dextrose 50% Abboject 50 Ml Syringe) 25 gm SLOW IVP PRN PRN PRN Reason: Hypoglycemia Glucagon (Glucagon 1 Mg/Ml Vial) 1 mg IM PRN PRN PRN Reason: Hypoglycemia Dextrose/Water (D5w) 1,000 mls @ 0 mls/hr IV .Q0M PRN PRN Reason: Hypoglycemia Insulin Human Lispro (Humalog 300 Units/3 Ml Vial) 0 units SC .MILD SLIDING SCALE PRN PRN Reason: Mild Correctional Scale Last Admin: 05/03/20 06:03 Dose: 2 unit Documented by: Insulin Human Lispro (Humalog 300 Units/3 Ml Vial) 0 units SC .BEDTIME SLIDING SC PRN PRN Reason: Bedtime Correctional Scale Isosorbide Dinitrate (Isosorbide Dinitrate 5 Mg Tab) 10 mg PO BID [facility] Last Admin: 05/03/20 08:31 Dose: 10 mg Documented by: Lidocaine (Lidocaine 5% Patch) 1 patch TD 2300 [facility] Last Admin: 05/02/20 23:28 Dose: 1 patch Documented by: Lisinopril (Lisinopril 10 Mg Tab) 5 mg PO DAILY [facility] Last Admin: 05/02/20 08:40 Dose: 5 mg Documented by: Miscellaneous Medication (Lidocaine Patch Removal 1 Each) 1 each TOP 1100 [facility] Nitroglycerin (Nitroglycerin 0.4 Mg Tab (25 Tab Bottle)) 0.4 mg SL Q5MIN PRN PRN Reason: Chest Pain Ondansetron HCl (Ondansetron Pf 4 Mg/2 Ml Vial) 4 mg IVP Q6H PRN PRN Reason: Nausea/Vomiting Last Admin: 05/01/20 21:06 Dose: 4 mg Documented by: Oxycodone HCl (Oxycodone 5 Mg Tab) 5 mg PO Q4H PRN PRN Reason: Moderate to Severe Pain (6-10) Last Admin: 05/03/20 08:30 Dose: 5 mg Documented by: Ranolazine (Ranolazine 500 Mg Tab) 500 mg PO BID [facility] Last Admin: 05/03/20 08:31 Dose: 500 mg Documented by: Torsemide (Torsemide 20 Mg Tab) 20 mg PO DAILY [facility] Vital Signs & Weight: Vital Signs Temp Pulse Resp BP Pulse Ox 05/03/20 11:30 97.6 F 69 16 109/51 L 95 05/03/20 07:10 97.7 F 97 16 111/60 98 05/03/20 03:52 98.1 F 99 17 112/63 99 Weight 211 lb 3.245 oz - Physical Exam General: alert & oriented x3 HEENT: mucus membranes moist Neck: supple neck Cardiac: regular rate and rhythm Lungs: normal breath sounds Neuro: grossly intact Abdomen: active bowel sounds Extremities: 1+ LE edema Skin: clear Musculoskeletal: decreased range of motion, pain in joint - Labs Result Diagrams: 05/03/20 08:37 05/03/20 08:37 Troponin/CKMB CK-MB (CK-2) 1.1 ng/mL (0-6.6) 04/30/20 21:54 Troponin I 0.043 ng/mL (< 0.028) H 05/01/20 00:49 - Telemetry Supraventricular conduction: atrial fibrillation - Assessment/Plan Assessment/Plan: 1. Ischemic CM EF at 20-25% 2. Chets pain, no recurrence 3. Right humeral fracture. 4. LBBB 5. Left ventricular dyssynchrony. 6. ESRD. PLAN: - EP for BiV AICD - Continue HD per nephrology. - Continue other meds.
--- NOTE | 2020-05-03 16:03 | RAD ---
EXAM: CHEST ONE VIEW HISTORY: Pacemaker placement. COMPARISON: 04/30/2020 FINDINGS: Right-sided hemodialysis catheter remains in place. There has been interval placement of a triple vaibhav d left subclavian AICD device. Median sternotomy wires are seen. Vascular stents overlie the left cardiac border. Cardiac silhouette is magnified by projection but does appear mildly enlarged. Small right pleural effusion is again seen. There is no evidence of a pneumothorax. Vascular calcifications are seen in the thoracic aorta. Incomplete visualization of a right humeral neck fract ure which was seen on views of the humerus on 05/01/2020 IMPRESSION: 1. Interval placement of a triple lead left subclavian AICD device without evidence of a pneumothorax . 2. Overall stable small to moderate size right pleural effusion with hazy density overlying the right midlung zone likely related to pleural fluid in the fissure or layering posteriorly. 3. Mild cardiomegaly. 4. Right humeral neck fracture.
[2020-05-03] MEDS: Amiodarone 200 MG TAB PO SCH (16:46)
[2020-05-03] MEDS: Ascorbic Acid 500 mg Chewable Tablet PO SCH (16:46)
[2020-05-03] MEDS: Cholecalciferol 1,000 UNITS (25 MCG) TAB PO SCH (16:46)
[2020-05-03] MEDS: Lisinopril 10 MG TAB PO SCH (16:47)
[2020-05-03] MEDS: Torsemide 20 MG TAB PO SCH (16:47)
[2020-05-03] MEDS: Clopidogrel Bisulfate 75 MG TAB PO SCH (16:47)
[2020-05-03] MEDS: Lidocaine Patch Removal 1 EACH TOP SCH (16:49)
--- NOTE | 2020-05-03 17:25 | PDOC.HOSPP ---
- Subjective Encounter Date: 05/03/20 Encounter Time: 09:00 Subjective: F/u: shoulder fracture Patient states that her right arm pain is better and more well controlled. She denies any chest pain or shortness of breath. Patient underwent biventricular ICD placement today - Objective Vital Signs & Weight: Vital Signs (12 hours) Temp Pulse Resp BP Pulse Ox 05/03/20 16:32 98.6 F 70 15 106/49 L 96 05/03/20 11:30 97.6 F 69 16 109/51 L 95 05/03/20 07:10 97.7 F 97 16 111/60 98 Weight Weight 211 lb 3.245 oz I&O: 05/02/20 05/03/20 05/04/20 06:59 06:59 06:59 Intake Total 480 600 Output Total 50 Balance 480 550 Result Diagrams: 05/03/20 08:37 05/03/20 08:37 Additional Labs: Accuchecks 05/03/20 05/03/20 05/03/20 17:05 10:42 05:57 POC Glucose 120 H 132 H 168 H 05/03/20 05/02/20 05/02/20 01:43 20:10 16:35 POC Glucose 203 H 193 H 160 H Hospitalist ROS - Review of Systems Constitutional: denies: fever, chills - Medication Medications: Active Medications Generic Name Dose Route Start Last Admin Trade Name Freq PRN Reason Stop Dose Admin Acetaminophen 650 mg 04/30/20 19:39 05/02/20 23:28 Acetaminophen 325 Mg Tab PO 650 mg Q4H PRN Administration Headache/Fever/Mild Pain (1-3) Alprazolam 0.5 mg 05/01/20 19:52 05/02/20 20:43 Alprazolam 0.5 Mg Tab PO 0.5 mg TIDPRN PRN Administration Anxiety Amiodarone HCl 200 mg 05/02/20 09:00 05/03/20 16:46 Amiodarone 200 Mg Tab PO Not Given DAILY [facility] Apixaban 2.5 mg 05/01/20 21:00 05/03/20 08:30 Apixaban 5 Mg Tab PO 2.5 mg BID [facility] Administration Ascorbic Acid 500 mg 05/02/20 09:00 05/03/20 16:46 Ascorbic Acid 500 Mg Chewable Tablet PO Not Given DAILY [facility] Atorvastatin Calcium 40 mg 05/02/20 21:00 05/02/20 20:42 Atorvastatin Calcium 40 Mg Tab PO 40 mg HS [facility] Administration Carvedilol 12.5 mg 05/01/20 21:00 05/03/20 08:30 Carvedilol 6.25 Mg Tab PO 12.5 mg BID [facility] Administration Cholecalciferol 1,000 units 05/03/20 09:00 05/03/20 16:46 Cholecalciferol 1,000 Units (25 Mcg) Tab PO Not Given DAILY [facility] Clopidogrel Bisulfate 75 mg 05/02/20 09:00 05/03/20 16:47 Clopidogrel Bisulfate 75 Mg Tab PO Not Given DAILY [facility] Insulin Human Lispro 0 units 04/30/20 19:44 05/03/20 06:03 Humalog 300 Units/3 Ml Vial SC 2 unit .MILD SLIDING SCALE PRN Administration Mild Correctional Scale Isosorbide Dinitrate 10 mg 05/01/20 21:00 05/03/20 08:31 Isosorbide Dinitrate 5 Mg Tab PO 10 mg BID [facility] Administration Lidocaine 1 patch 05/02/20 23:00 05/02/20 23:28 Lidocaine 5% Patch TD 1 patch 2300 [facility] Administration Lisinopril 5 mg 05/02/20 09:00 05/03/20 16:47 Lisinopril 10 Mg Tab PO Not Given DAILY [facility] Miscellaneous Medication 1 each 05/03/20 11:00 05/03/20 16:49 Lidocaine Patch Removal 1 Each TOP 1 each 1100 [facility] Administration Ondansetron HCl 4 mg 04/30/20 19:39 05/01/20 21:06 Ondansetron Pf 4 Mg/2 Ml Vial IVP 4 mg Q6H PRN Administration Nausea/Vomiting Oxycodone HCl 5 mg 05/02/20 10:44 05/03/20 08:30 Oxycodone 5 Mg Tab PO 5 mg Q4H PRN Administration Moderate to Severe Pain (6-10) Ranolazine 500 mg 05/01/20 21:00 05/03/20 08:31 Ranolazine 500 Mg Tab PO 500 mg BID [facility] Administration Torsemide 20 mg 05/03/20 09:00 05/03/20 16:47 Torsemide 20 Mg Tab PO Not Given DAILY [facility] - Exam General Appearance: NAD, awake alert Eye: PERRL, anicteric sclera ENT: normocephalic atraumatic, no oropharyngeal lesions Neck: no JVD Heart: RRR, no murmur, no gallops, no rubs Respiratory: no rales Extremities: no cyanosis, no clubbing, no edema Extremities - other findings: Right arm is in a sling with some swelling. Elbow + humerus tenderness Skin: normal turgor, no lesions, no rashes Neurological: cranial nerve grossly intact, normal sensation to touch, no weakness Musculoskeletal: normal tone, normal strength, no muscle wasting Hosp A/P - Plan ECHO: Ef 25-30%, moderate MR, moderate TR Wrist Xray 05/02: no acute abnormality Right hand X ray 05/02: no acute abnormality. Osteoarthritis first carpal metacarpal joint with mild osteoarthritis in the interphalangeal joints. vascular calcifications at wrist Right elbow Xray: subcutaneous soft tissue swelling. No fracture Right forearm X ray: no fracture Right humerus Xray: stable humeral fracture Chest X ray: moderate right pleural effusion and vascular engorgement Chest X ray 05/03: stable to moderate right pleural effusion This is a 64 year old female patient with past medical history of CAD, CHF, ESRD who presented with chest pain during dialysis #Chest pain- resolved #CAD s/p CABG #Systolic heart failure #LBBB - cardiology was consulted. She had CABG last month, no cath needed. ECHO showed Ef 25-30%. EP was consulted and patient underwent biventricular ICD placement today - on plavix, lisinopril, ranolazine Right humeral neck fracture - repeat shoulder humerus Xray showed stable fracture. Wrist, arm, elbow Xray showed no fracture but some soft tissue swelling - discussed with ortho, continue nonoperative management - PT and OT ordered. Patient to be non-weightbearing. Continue wearing a sling - continue oxycodone 5 mg q4 hours prn for pain Acute hypoxic respiratory failure - likely from pulmonary edema -she was weaned to room air. She has been started on torsemide, X ray showed stable to moderate right pleural effusion. ECHO showed EF 25-30% - continue diuretics for now, consider outpatient pulmonary follow up for pleural effusion if this does not resolve with diuretics ESRD - continue dialysis as scheduled -continue torsemide to 20 mg daily Hypotension - improved. BP 90 - 110 systolic. Reduced torsemide dose 05/02 Dispo: likely discharge tomorrow
[2020-05-03] MEDS: ALPRAZolam 0.5 MG TAB PO PRN (20:46)
[2020-05-03] MEDS: Atorvastatin Calcium 40 MG TAB PO SCH (20:46)
[2020-05-03] MEDS ORDERED: Lidocaine 5% Patch TD SCH (23:00)
[2020-05-03] MEDS: Acetaminophen 325 MG TAB PO PRN (23:30)
[2020-05-03] MEDS: Lidocaine 5% Patch TD SCH (23:31)
[2020-05-04] MEDS ORDERED: CEFAZOLIN 1 GM in Sodium Chloride 0.9% 100 ML IVPB SCH (01:00)
[2020-05-04] MEDS: oxyCODONE 5 MG TAB PO PRN ×3 (01:20→12:35)
[2020-05-04] MEDS: ceFAZolin 1 GM/D5W 1 GM in Premix Bag 1 BAG IVPB SCH ×2 (01:21→09:55)
[2020-05-04] MEDS: ALPRAZolam 0.5 MG TAB PO PRN ×2 (01:24→08:58)
[2020-05-04] MEDS: Isosorbide Dinitrate 5 MG TAB PO SCH (08:36)
[2020-05-04] MEDS: Apixaban 5 MG TAB PO SCH (08:39)
[2020-05-04] MEDS: Amiodarone 200 MG TAB PO SCH (08:39)
[2020-05-04] MEDS: Clopidogrel Bisulfate 75 MG TAB PO SCH (08:40)
[2020-05-04] MEDS: Carvedilol 6.25 MG TAB PO SCH (08:41)
[2020-05-04] MEDS: Ascorbic Acid 500 mg Chewable Tablet PO SCH (08:41)
[2020-05-04] MEDS: Lisinopril 10 MG TAB PO SCH (08:42)
--- NOTE | 2020-05-04 08:47 | PQF ---
CLINICAL DOCUMENTATION CLARIFICATION FORM: Dear Dr. Rowe Date: 05/04/20 Please exercise your independent, professional judgment in responding to the clarification form. Clinical indicators are provided on the bottom of this form for your review. Please check appropriate box(es): HEART FAILURE: ACUITY: [ ] Acute [ ] Acute on Chronic [ X ] Chronic [ ] Other diagnosis [ ] Unable to determine In addition, please specify: Present on Admission (POA): [X ] Yes [ ] No [ ] Unable to determine For continuity of documentation, please document condition throughout progress notes and discharge summary. Thank You. To be completed by CDI/Coding staff for physician review: CLINICAL INDICATORS - SIGNS / SYMPTOMS / LABS / RESULTS AND LOCATION IN EMR PN 05/02: "SYSTOLIC HEART FAILURE" "ECHO SHOWED EF 25-30" BNP 04/30: 983.2 RISKS: ESRD (PROGRESS NOTE 05/02- [facility]) CAD S/P CABG (PN 05/02- [facility]) CHEST XRAY: "MODERATE RIGHT PLEURAL EFFUSION AND VASCULAR ENGORGEMENT" TREATMENT: COREG (05/01-PRESENT) ZESTRIL (05/02-PRESENT) TORSEMIDE (05/03-PRESENT) CARDIAC MONITORING ECHO 05/01 HEMODIALYSIS BI V ICD PLACEMENT CDS Signature: Alison Loo RN Phone #: [phone] Date: 05/04/20 This is a permanent part of the Medical Record [facility]
[2020-05-04] MEDS: Torsemide 20 MG TAB PO SCH (08:58)
[2020-05-04] MEDS: Cholecalciferol 1,000 UNITS (25 MCG) TAB PO SCH (08:59)
[2020-05-04 10:49] LABS: Anion Gap 16 mmol/L (10-20); BUN (Urea Nitrogen) 30 mg/dL (9.8-20.1); Calc. Creatinine Clearance 28 mL/min (70-130); Calcium 8.5 mg/dL (7.8-10.44); Carbon Dioxide 24 mmol/L (23-31); Chloride 94 mmol/L (98-107); Estimated GFR-MDRD 15; Glucose 197 mg/dL (80-115); Sodium 130 mmol/L (136-145)
--- NOTE | 2020-05-04 11:54 | PRG ---
DATE OF SERVICE: 05/04/2020 SUBJECTIVE: Patient was seen and examined at bedside and overnight events noted. Patient denies any shortness of breath or chest pain or palpitation. No history of nausea or vomiting or diarrhea or fever or chills or cramps. OBJECTIVE: GENERAL: This is a well-built female, in no apparent distress. VITAL SIGNS: Temperature 98.3. Heart rate 79. Respiratory rate 16. Blood pressure 139/63. HEENT: Atraumatic, normocephalic. Oral mucosa is moist NECK: Supple. CARDIOVASCULAR: S1, S2 heard. Rate and rhythm regular. RESPIRATORY: Clear to auscultation. GASTROINTESTINAL: Abdomen is soft. MUSCULOSKELETAL: No tenderness. No edema. DERMATOLOGIC: No skin rash. NEUROLOGIC: Alert and awake and oriented X3. No focal neurologic deficits. Moving all the extremities. PSYCHIATRIC: Mood and affect normal. LABORATORY DATA: Potassium 4.0, BUN is 30, and creatinine is 3.1. ASSESSMENT AND PLAN: 1. End-stage renal disease. Continue dialysis as tolerated. 2. Edema, controlled. 3. Hypertension. 4. Hyponatremia. Limit fluid intake. 5. Cardiorenal syndrome. Continue dialysis as tolerated. Job ID: [id number]
[2020-05-04 12:24] VITALS: TEMP 98.5
[2020-05-04] MEDS: Lidocaine Patch Removal 1 EACH TOP SCH (12:26)
[2020-05-04] MEDS: HumaLOG 300 UNITS/3 ML VIAL SC PRN (12:26)
[2020-05-04 13:30] LABS: Squamous Epithelial 0-3 HPF (0-3); WBC/HPF 21-50 HPF (0-3)
[2020-05-04 13:31] LABS: Bacteria/HPF 2+ HPF (None Seen)
[2020-05-04 14:53] VITALS: BP 105/50
--- NOTE | 2020-05-04 16:10 | PDOC.EP ---
- Subjective Date: 05/04/20 Time: 08:00 Interval History: she has done well overnight following her ICD implant. She does endorse some tenderness at the implant site but has not had any major events overnight or severe complaints this morning. She is possibly going back to her rehab location today - Review of Systems Constitutional: denies: chills, fever, malaise, sweats, weakness Respiratory: denies: cough, dry, hemoptysis, pleuritic pain, shortness of breath, SOB with excertion, sputum, wheezing Cardiology: denies: chest pain, edema, heart racing, light headedness, orthopnea, paroxysmal noc. dyspnea, palpitations, passing out, pleuritic pain, pressure, swelling Gastrointestinal: denies: abdominal pain, constipation, diarrhea, hematochezia, melena, nausea, vomitting Musculoskeletal: reports: unstable gait, arm pain (rue). denies: falls, neck pain, shoulder pain, hand pain, leg pain, foot pain - Objective Allergies/Adverse Reactions: Allergies Allergy/AdvReac Type Severity Reaction Status Date / Time adhesive tape Allergy Verified 04/30/20 22:01 aspirin Allergy Verified 04/30/20 22:01 latex Allergy Verified 04/30/20 22:01 meperidine [From Demerol] Allergy Verified 04/30/20 22:01 morphine Allergy Verified 04/30/20 22:01 lace Allergy Uncoded 04/30/20 22:01 Vital Signs & Weight: Vital Signs Temp Pulse Pulse Resp BP BP Pulse Ox 05/04/20 14:02 69 105/50 L 05/04/20 12:12 98.5 F 74 12 138/63 95 05/04/20 08:06 98.3 F 79 16 139/63 93 L Pulse Ox 05/04/20 14:02 96 05/04/20 12:12 05/04/20 08:06 Weight 208 lb 15.971 oz I/O: I/O 05/03/20 05/04/20 05/05/20 06:59 06:59 06:59 Intake Total 600 490 480 Output Total 50 120 Balance 550 490 360 - Physical Exam General: alert & oriented x3, appears well, no apparent distress, speech clear, affect appropriate HEENT: mucus membranes moist, normocephaly Neck: supple neck, midline trachea, no lymphadenopathy Cardiology: regular rate and rhythm, no murmur, PMI nondisplaced Lungs: clear to auscultation, normal breath sounds, no wheeze, rales, rhonchi Neurology: cranial nerve 2-12 intact, grossly intact, no lateralizing findings Skin: device site stable w/o swelling, bruising, left sided device. negative: drainage, erosion, hematoma - Labs Result Diagrams: 05/03/20 08:37 05/04/20 10:03 - EKG Interpretation EKG Method: Telemetry (AV pacing/GROCERY STOCK CLERK) - Assessment/Plan Assessment/Plan: IMPRESSION: 1. Left ventricular dyssynchrony. 2. Acute on chronic systolic heart failure with worsening LVEF despite recent coronary artery bypass grafting. a. NYHA class 3 functional status. 3. Severe coronary artery disease. 4. Anemia likely of chronic disease. 5. End-stage renal disease on dialysis. 6. Open right humeral neck fracture, nonoperative per Ortho. 7. Atypical chest pain. status post biventricular ICD implant on 05/03/2020. Site check today is stable with only limited bruising and swelling. There is no drainage and edges are well approximated. chest x-ray post implant shows small pleural effusion but is negative for pneumothorax. Humeral fracture is a known issue. she is seen to have consistent GROCERY STOCK CLERK pacing overnight with a narrow QRS complex. She is cleared for discharge from EP perspective on Keflex 500 mg p.o. b.i.d. for 7 days. Wound check will be arranged in 2 weeks.
--- NOTE | 2020-05-04 17:34 | PDOC.CPN ---
- Subjective Date: 05/04/20 Time: 17:33 Interval history: No new issues. Still having severe pain on left arm due to broken arm. Wearing sling. - Review of Systems General: denies: fever/chills, weight/appetite/sleep changes, night sweats, fatigue Respiratory: denies: cough, congestion, shortness of breath, exercise intolerance Cardiovascular: denies: chest pain, palpitation, edema, paroxysmal nocturnal dyspnea, orthopnea Gastrointestinal: denies: nausea, vomiting, diarrhea, constipation, abd pain, GI bleeding Musculoskeletal: reports: pain. denies: tenderness, stiffness, swelling, arthritis/arthralgias Neurological: denies: numbness, syncope, seizure, weakness - Objective Allergies/Adverse Reactions: Allergies Allergy/AdvReac Type Severity Reaction Status Date / Time adhesive tape Allergy Verified 04/30/20 22:01 aspirin Allergy Verified 04/30/20 22:01 latex Allergy Verified 04/30/20 22:01 meperidine [From Demerol] Allergy Verified 04/30/20 22:01 morphine Allergy Verified 04/30/20 22:01 lace Allergy Uncoded 04/30/20 22:01 Vital Signs & Weight: Vital Signs Temp Pulse Pulse Resp BP BP Pulse Ox 05/04/20 14:02 69 105/50 L 05/04/20 12:12 98.5 F 74 12 138/63 95 05/04/20 08:06 98.3 F 79 16 139/63 93 L Pulse Ox 05/04/20 14:02 96 05/04/20 12:12 05/04/20 08:06 Weight 208 lb 15.971 oz - Physical Exam General: alert & oriented x3 HEENT: mucus membranes moist Neck: supple neck Cardiac: irregularly regular Lungs: clear to auscultation Neuro: grossly intact Abdomen: active bowel sounds Extremities: 1+ LE edema Skin: clear - Labs Result Diagrams: 05/03/20 08:37 05/04/20 10:03 Troponin/CKMB CK-MB (CK-2) 1.1 ng/mL (0-6.6) 04/30/20 21:54 Troponin I 0.043 ng/mL (< 0.028) H 05/01/20 00:49 - Telemetry Sinus rhythms and dysrhythmias: sinus rhythm - Assessment/Plan Assessment/Plan: 1. Ischemic CM EF at 20-25% 2. Chets pain, no recurrence 3. Right humeral fracture. 4. LBBB 5. Left ventricular dyssynchrony. 6. ESRD. 7. S/P BiV AICD PLAN: - BiV in place. - BP borderline low to start Entresto. - Continue other meds. - Continue HD per nephrology. - CV stable.
--- NOTE | 2020-05-04 18:56 | PDOC.DS.DS ---
Provider - Provider Date of Admission: 04/30/20 19:52 Date of Discharge: 05/04/20 Admitting Provider: Jacob Zambrano MD Consultations:: Other (Dr. Ruben Ortiz) Primary Care Physician: Mauricio Isbell Course - Hospital Course Hospital Course: #Chest pain with history of CAD s/p CABG: the patient originally presented with severe chest pain. This resolved the night of admission. Troponins were indeterminate. Cardiology was consulted and no additional workup was done. The patient was resumed on aspirin, plavix, ranolazine, coreg, lisinopril and statin. #Systolic heart failure #LBBB - the patient was noted to have a left bundle branch block on initial EKG. ECHO showed an EF of 25-30%. Cardiology was consulted. EP was consulted and the patient underwent biventricular ICD placement. She was monitored overnight. She will be discharged with torsemide 20 mg daily and should follow up with her cardiologists. Right humeral neck fracture: the patient had a right humeral neck fracture. Repeat humerus X ray showed a stable fracture. Due to arm swelling, she had Xrays of her wrist, arm, elbow which showed no fracture. Orthopedics looked at X rays and recommended continued non-operative management. She should continue to wear a sling for another week. She should follow up with her scheduled appointment for orthopedics next week, and if not phone number was provided for her to make an appointment in fracture clinic ([phone]). She was pre scribed oxycodone for three days for pain since tylenol 3 was not helping. [place] [employer] was checked prior to prescribing. Acute hypoxic respiratory failure -she did require nasal cannula while in the hospital. She had a chest Xray which showed pulmonary edema and mild vascular engorgement. She was started on torsemide and weaned down to room air. Repeat chest Xray 05/03 showed small to moderate right sized pleural effusion. She was discharged on a lower dose 20 mg due to hypotension. Consider outpatient pulmonary follow up and repeat chest Xray in two weeks to evaluate for resolution. ESRD - continue dialysis as scheduled -continue torsemide to 20 mg daily Hypotension - improved. BP 90 - 110 systolic. Reduced torsemide dose 05/02 to 20 mg daily. Pertinent Studies: ECHO: Ef 25-30%, moderate MR, moderate TR Wrist Xray 05/02: no acute abnormality Right hand X ray 05/02: no acute abnormality. Osteoarthritis first carpal metacarpal joint with mild osteoarthritis in the interphalangeal joints. va scular calcifications at wrist Right elbow Xray: subcutaneous soft tissue swelling. No fracture Right forearm X ray: no fracture Right humerus Xray: stable humeral fracture Chest X ray: moderate right pleural effusion and vascular engorgement Chest X ray 05/03: stable to moderate right pleural effusion Procedures: Biventricular ICD placement 05/03 Resuscitation Status: 04/30/20 19:39 Resuscitation Status Routine Resuscitation Status: FULL: Full Resuscitation - Labs Lab Results: 05/03/20 08:37 05/04/20 10:03 Abnormal Lab Results - Last 48 hrs 05/03/20 08:37: Sodium 130 L, Chloride 93 L, BUN 57 H, Creatinine 4.79 H 05/03/20 08:37: RBC 3.36 L, Hgb 9.0 L, Hct 29.6 L, MCH 26.8 L, MCHC 30.4 L, RDW 16.3 H, Band Neuts % (Manual) 3 L 05/04/20 10:03: Sodium 130 L, Chloride 94 L, BUN 30 H, Creatinine 3.15 H 05/04/20 13:15: Urine RBC 4-6 A, Urine WBC 21-50 A, Urine Bacteria 2+ A - Physical Exam Vitals: Vital Signs (12 hours) Temp Pulse Pulse Resp BP BP Pulse Ox 05/04/20 14:02 69 105/50 L 05/04/20 12:12 98.5 F 74 12 138/63 95 05/04/20 08:06 98.3 F 79 16 139/63 93 L Pulse Ox 05/04/20 14:02 96 05/04/20 12:12 05/04/20 08:06 Weight Weight 208 lb 15.971 oz Physical Exam: The patient was seen and examined on the day of discharge. Problem - Discharge Plan Plan of Treatment: Please repeat chest xray in a week to follow up pleural effusion. Also f/u in the fracture clinic for humerus fracture in a week. - Time spent with Patient (mins): 30 Plan - Discharge Medications Prescriptions: Torsemide [Demadex] 20 mg PO DAILY #30 tab Cephalexin [Keflex] 500 mg PO BID #56 cap OxyCODONE IR [oxyCODONE HCl] 5 mg PO Q4H PRN #18 tab PRN Reason: Moderate To Severe Pain (6-10) Cholecalciferol [Vitamin D3] 1,000 units PO DAILY #30 tab Home Medications: Medication Instructions Recorded Confirmed Type Atorvastatin Calcium 40 mg PO DAILY 01/21/18 04/30/20 History Levothyroxine Sodium 50 mcg PO DAILY 02/21/19 04/30/20 History Clopidogrel Bisulfate [Plavix] 75 mg PO DAILY #30 tab 03/24/19 04/30/20 Rx glipiZIDE [Glipizide] 20 mg PO BID 09/15/19 04/30/20 History Ranolazine [Ranexa] 500 mg PO BID #60 tab 10/07/19 04/30/20 Rx Pregabalin 100 mg PO BID 11/01/19 04/30/20 History Isosorbide Dinitrate [Isordil] 10 mg PO BID #60 tab 12/10/19 04/30/20 Rx traZODone HCl [Trazodone HCl] 50 mg PO HS 12/10/19 04/30/20 History ALPRAZolam [Xanax] 0.5 mg PO TID PRN 02/06/20 04/30/20 History Insulin Aspart [Novolog] 1 - 10 unit SQ TID PRN 02/06/20 04/30/20 History Carvedilol [Coreg] 12.5 mg PO BID #60 tab 02/17/20 04/30/20 Rx Apixaban [Eliquis] 2.5 mg PO BID #60 tablet 03/03/20 04/30/20 Rx Acetaminophen With Codeine 1 tablet PO Q4HR PRN 04/30/20 04/30/20 History [Tylenol with Codeine #3] Amiodarone [Cordarone] 200 mg PO DAILY 04/30/20 04/30/20 History Ascorbic Acid [Vitamin C] 500 mg PO DAILY 04/30/20 04/30/20 History Cholecalciferol (Vitamin D3) 1,000 unit PO DAILY 04/30/20 04/30/20 History [Vitamin D] Lisinopril 5 mg PO DAILY 04/30/20 04/30/20 History Cephalexin [Keflex] 500 mg PO BID #56 cap 05/04/20 Rx Cholecalciferol [Vitamin D3] 1,000 units PO DAILY #30 tab 05/04/20 Rx OxyCODONE IR [oxyCODONE HCl] 5 mg PO Q4H PRN #18 tab 05/04/20 Rx Torsemide [Demadex] 20 mg PO DAILY #30 tab 05/04/20 Rx Allergies: adhesive tape Allergy (Verified 04/30/20 22:01) aspirin Allergy (Verified 04/30/20 22:01) INSTRUCTED TO NOT TAKE BY PROVIDER AND HF CLINIC PT ON OTHER BLOOD THINNERS AND RESULTED IN EXCESSIVE BLEEDING latex Allergy (Verified 04/30/20 22:01) Per patient meperidine [From Demerol] Allergy (Verified 04/30/20 22:01) Per patient morphine Allergy (Verified 04/30/20 22:01) Per Patient states vomiting lace Allergy (Uncoded 04/30/20 22:01) - Discharge Instructions Activity:: Activity as Tolerated Nourishment:: Heart Healthy Diet Therapies:: Occupational Therapy, Physical Therapy - Follow up Plan Referrals: Dana Bella MD [Primary Care Provider] - 7 Days (Call office to schedule appointment) Moises Peter MD [Active] - (Call for any cardiology questions.) Ruben Ortiz MD [Internal Medicine Doctor] - (Call for any EP questions ) Tresa Pretty MD [Active] - (Call for nephrology questions) Disposition: CARE HOME FACILITY Quality - Care Measures CORE MEASURES:: HF - Stroke/TIA Did you prescribe antithrombotic therapy?: No Specify reason for no DC antithrombotic therapy: Treatment not indicated
[2020-05-04] MEDS ORDERED: Cephalexin 250 MG CAP PO SCH (21:00)
== END 2020-05-04 14:42 | DRG 226 ==
LOC: ERS 17:21 → 2NO 19:52
PROVIDERS: ADMIT Internal Medicine; ATTEND Internal Medicine
PROC: 0JH609Z Insertion of Cardiac Resynchronization Defibrillator Pulse Generator into Chest Subcutaneous Tissue and Fascia, Open Approach (ICD-10-PCS; principal; 2020-05-03)
PROC: 02HK3KZ Insertion of Defibrillator Lead into Right Ventricle, Percutaneous Approach (ICD-10-PCS; 2020-05-03)
PROC: 02HL3KZ Insertion of Defibrillator Lead into Left Ventricle, Percutaneous Approach (ICD-10-PCS; 2020-05-03)
PROC: 02H63KZ Insertion of Defibrillator Lead into Right Atrium, Percutaneous Approach (ICD-10-PCS; 2020-05-03)
PROC: 5A1D70Z Performance of Urinary Filtration, Intermittent, Less than 6 Hours Per Day (ICD-10-PCS; 2020-05-03)
DX: I21.4 Non-ST elevation (NSTEMI) myocardial infarction (principal); S42.301B Unspecified fracture of shaft of humerus, right arm, initial encounter for open fracture; N18.6 End stage renal disease; J96.01 Acute respiratory failure with hypoxia; I50.23 Acute on chronic systolic (congestive) heart failure; I13.2 Hypertensive heart and chronic kidney disease with heart failure and with stage 5 chronic kidney disease, or end stage renal disease; E87.1 Hypo-osmolality and hyponatremia; I25.10 Atherosclerotic heart disease of native coronary artery without angina pectoris; E11.22 Type 2 diabetes mellitus with diabetic chronic kidney disease; E78.00 Pure hypercholesterolemia, unspecified; J44.9 Chronic obstructive pulmonary disease, unspecified; G43.909 Migraine, unspecified, not intractable, without status migrainosus; E03.9 Hypothyroidism, unspecified; E55.9 Vitamin D deficiency, unspecified; I25.5 Ischemic cardiomyopathy; D63.1 Anemia in chronic kidney disease; I44.7 Left bundle-branch block, unspecified; F41.9 Anxiety disorder, unspecified; F32.9 Major depressive disorder, single episode, unspecified; Z88.8 Allergy status to other drugs, medicaments and biological substances; Z88.6 Allergy status to analgesic agent; Z95.1 Presence of aortocoronary bypass graft; Z99.2 Dependence on renal dialysis; I25.2 Old myocardial infarction; Z95.5 Presence of coronary angioplasty implant and graft; Z90.710 Acquired absence of both cervix and uterus; Z91.040 Latex allergy status; Z79.899 Other long term (current) drug therapy; Z79.4 Long term (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 of insulin; Z79.01 Long term (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 of anticoagulants; Z20.828 Contact with and (suspected) exposure to other viral communicable diseases; I48.0 Paroxysmal atrial fibrillation
CPT/HCPCS: 33225; 36005; 36415; 36416; 71045; 75820; 76942; 80048; 80053; 80061; 81015; 82306; 82553; 82565; 82947; 83880; 84484; 85007; 85025; 85027; 87635; 90935; 93005; 93306; 93798; 96372; 96374; 97139; C1777; C1882; C1898; C1900; G0257; J0690; J1580; J1644; J1650; J2001; J2250; J2370; J2405; J2704; J3010; Q9967; U0003

== ENCOUNTER 2020-08-03 07:07 | Day surgery (SDC) | payer OTHER ==
[2020-08-03 08:31] VITALS: BMI 33.2
[2020-08-03 08:36] VITALS: BP 143/71; TEMP 98
[2020-08-03] MEDS ORDERED: Iopamidol 300 61% 100 ML VIAL FS ONE (10:22)
[2020-08-03] MEDS ORDERED: Heparin 1,000 UNITS/ML VIAL ONE (11:23)
--- NOTE | 2020-08-03 11:30 | SPC ---
PROCEDURE: [facility] [place] [facility] [place]C/AV S PROVIDED CLINICAL HISTORY: Patient with right upper extremity arteriovenous dialysis fistula and now has right upper extremity s welling. Patient also has history of recent fracture of proximal right humerus. Fistula is not maturing appropriately. COMPARISON: None TECHNIQUE: After informed consent was obtained, the patient was placed on the angiography table in the supine po sition. Limited sonographic evaluation of the right upper extremity was performed. Large dilated vein is seen at the level of the antecubital fossa, but this large vein promptly tapers and occludes. Right upper extremity was meticulously prepped and draped in usual sterile fashion. Skin and subcutaneous tissues were infiltrated with buffered 1% lidocaine for local anesthesia at the intended puncture site. Utilizing concurrent real-time ultrasound guidance, the dominant vein at the level of the antecubital fossa was accessed utilizing micropuncture technique, and a 4 Syriac introducer sh eath was placed. Fistulogram and venogram were performed. Multiple collateral small caliber veins are seen. There is n o dominant draining vein in the expected location of the patient's right upper extremity arteriovenous dialysis fistula suggesting occlusion of this vein. Venogram was obtained to the level of the proximal humerus. Findings on venography correlate with ultrasound findings. The catheter was removed, and hemostasis was achieved with direct pressure. Patient tolerated the pro cedure well and without immediate complication. Fluoroscopy: Time-1.4 minutes Dose-8066 mGy centimeter squared IMPRESSION: 1. 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 2. Above findings discussed with Dr. Hawkins on this date.
== END 2020-08-03 11:10 | disposition home or self-care (01) ==
LOC: SPEC 07:07
PROVIDERS: ATTEND Specialist
PROC: B51W1ZZ Fluoroscopy of Dialysis Shunt/Fistula using Low Osmolar Contrast (ICD-10-PCS; principal; 2020-08-03)
DX: T82.7XXA Infection and inflammatory reaction due to other cardiac and vascular devices, implants and grafts, initial encounter (principal); I12.0 Hypertensive chronic kidney disease with stage 5 chronic kidney disease or end stage renal disease; E11.22 Type 2 diabetes mellitus with diabetic chronic kidney disease; N18.6 End stage renal disease; E03.9 Hypothyroidism, unspecified; J44.9 Chronic obstructive pulmonary disease, unspecified; G43.909 Migraine, unspecified, not intractable, without status migrainosus; I25.10 Atherosclerotic heart disease of native coronary artery without angina pectoris; I48.91 Unspecified atrial fibrillation; I25.2 Old myocardial infarction; F41.9 Anxiety disorder, unspecified; F32.9 Major depressive disorder, single episode, unspecified; E78.00 Pure hypercholesterolemia, unspecified; K21.9 Gastro-esophageal reflux disease without esophagitis; Z88.6 Allergy status to analgesic agent; Z91.040 Latex allergy status; Z91.048 Other nonmedicinal substance allergy status; Z88.5 Allergy status to narcotic agent; Z95.1 Presence of aortocoronary bypass graft; Z99.2 Dependence on renal dialysis
CPT/HCPCS: 36901; J1644; Q9967

== ENCOUNTER 2020-09-15 11:01 | Emergency (ER) | payer OTHER ==
[2020-09-15 12:02] LABS: #Lymphocytes 1.1 thou/uL (1.20-3.40); #Monocytes 0.5 thou/uL (0.11-0.59); #Neutrophils 7.1 thou/uL (1.40-6.50); %Basophils 0.1 % (0.0-1.0); %Eosinophils 0.2 % (0.0-10.0); %Lymphocytes 12.1 % (21.0-51.0); %Monocytes 5.7 % (0.0-10.0); %Neutrophils 81.9 % (42.0-75.0); Mean Corpuscular HGB CONC 31.6 g/dL (32.0-36.0); Mean Corpuscular Hemoglobin 27.6 pg (27.0-31.0); Mean Corpuscular Volume 87.3 fL (78.0-98.0); Mean Platelet Volume 8.9 fL (7.4-10.4); Platelet Count 205 thou/uL (130-400); RBC Distribution Width 15.5 % (11.5-14.5); Red Blood Cell (RBC) Count 3.98 mill/uL (4.20-5.40); White Blood Cell (WBC) Count 8.7 thou/uL (4.8-10.8)
[2020-09-15 12:09] LABS: INR-International Normal Ratio 1.2; Prothrombin Time 15.1 sec (12.0-14.7)
[2020-09-15 12:10] LABS: PTT 41.4 sec (22.9-36.1)
[2020-09-15] MEDS ORDERED: Magnesium 2 GM/50 ML BAG (IN WATER) ONE (12:19)
[2020-09-15 12:22] LABS: ALT (SGPT) Less than 7 U/L (8-55); AST (SGOT) 4 U/L (5-34); Albumin 2.7 g/dL (3.4-4.8); Alkaline Phosphatase 105 U/L (40-110); Anion Gap 16 mmol/L (10-20); BUN (Urea Nitrogen) 31 mg/dL (9.8-20.1); Bilirubin, Total 0.6 mg/dL (0.2-1.2); Calc. Creatinine Clearance 0 mL/min (70-130); Calcium 8.6 mg/dL (7.8-10.44); Carbon Dioxide 29 mmol/L (23-31); Chloride 92 mmol/L (98-107); Globulin 3.1 g/dL (2.4-3.5); Glucose 327 mg/dL (80-115); Magnesium 1.7 mg/dL (1.6-2.6); Potassium 3.5 mmol/L (3.5-5.1); Protein, Total 5.8 g/dL (5.8-8.1); Sodium 133 mmol/L (136-145)
[2020-09-15 14:09] LABS: Bilirubin Small (Negative); Blood, Urine Moderate (Negative); Glucose, Urine (Dipstick) Negative (Negative); Ketone, Urine Trace mg/dL (Negative); Leukocyte Large (Negative); Nitrite Negative (Negative); Protein, Urine (Dipstick) 30 mg/dL (Neg-Trace); Specific Gravity, Urine 1.025 (1.005-1.030); Urobilinogen 0.2 mg/dL (Less than 2)
[2020-09-15 14:10] LABS: Clarity Cloudy (Clear)
[2020-09-15 14:24] LABS: RBC/HPF 0-3 HPF (0-3)
[2020-09-15 14:26] LABS: Bacteria/HPF 1+ HPF (None Seen); Transitional Epithelial 0-3 HPF (None Seen)
== END 2020-09-15 17:42 | disposition home or self-care (01) ==
LOC: ERS 11:01
DX: R07.9 Chest pain, unspecified (principal); N39.0 Urinary tract infection, site not specified; E11.22 Type 2 diabetes mellitus with diabetic chronic kidney disease; I13.0 Hypertensive heart and chronic kidney disease with heart failure and stage 1 through stage 4 chronic kidney disease, or unspecified chronic kidney disease; N18.9 Chronic kidney disease, unspecified; I50.9 Heart failure, unspecified; I25.2 Old myocardial infarction; E03.9 Hypothyroidism, unspecified; J44.9 Chronic obstructive pulmonary disease, unspecified; M79.7 Fibromyalgia; I48.91 Unspecified atrial fibrillation; Z95.1 Presence of aortocoronary bypass graft; Z79.899 Other long term (current) drug therapy
CPT/HCPCS: 36415; 51701; 71045; 80053; 81003; 81015; 83605; 83735; 83880; 84443; 84484; 85025; 85610; 85730; 93005; 96365; J3475

== ENCOUNTER 2020-12-16 06:55 | Day surgery (SDC) | payer OTHER ==
[2020-12-13 14:39] VITALS: BMI 28.6
[2020-12-16 08:02] VITALS: BP 128/59; TEMP 98
[2020-12-16] MEDS ORDERED: Heparin 1,000 UNITS/ML VIAL ONE (08:47)
== END 2020-12-16 09:00 | disposition home or self-care (01) ==
LOC: SPEC 06:55
PROVIDERS: ATTEND Specialist
PROC: B51W1ZZ Fluoroscopy of Dialysis Shunt/Fistula using Low Osmolar Contrast (ICD-10-PCS; principal; 2020-12-16)
DX: T82.868A Thrombosis due to vascular prosthetic devices, implants and grafts, initial encounter (principal); N18.6 End stage renal disease; E03.9 Hypothyroidism, unspecified; J44.9 Chronic obstructive pulmonary disease, unspecified; E11.9 Type 2 diabetes mellitus without complications; I25.10 Atherosclerotic heart disease of native coronary artery without angina pectoris; M79.7 Fibromyalgia; K21.9 Gastro-esophageal reflux disease without esophagitis; Z79.84 Long term (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 of oral hypoglycemic drugs; Z79.899 Other long term (current) drug therapy; Z88.5 Allergy status to narcotic agent; Z88.6 Allergy status to analgesic agent; Z91.040 Latex allergy status; Z91.048 Other nonmedicinal substance allergy status; Z95.0 Presence of cardiac pacemaker; Z99.2 Dependence on renal dialysis
CPT/HCPCS: 36005; 75820; 76937

== ENCOUNTER 2020-12-31 14:08 | Observation (INO) | payer OTHER ==
[2020-12-31 14:50] LABS: #Eosinphils 0.1 thou/uL (0.0-0.7); #Lymphocytes 0.6 thou/uL (1.20-3.40); #Monocytes 0.6 thou/uL (0.11-0.59); #Neutrophils 3.6 thou/uL (1.40-6.50); %Basophils 0.3 % (0.0-1.0); %Eosinophils 1.4 % (0.0-10.0); %Lymphocytes 13.2 % (21.0-51.0); %Monocytes 11.3 % (0.0-10.0); %Neutrophils 73.8 % (42.0-75.0); Hemoglobin 10.4 g/dL (12.0-16.0); Mean Corpuscular Hemoglobin 28.5 pg (27.0-31.0); Mean Corpuscular Volume 89.1 fL (78.0-98.0); Mean Platelet Volume 9.1 fL (7.4-10.4); Platelet Count 181 thou/uL (130-400); RBC Distribution Width 15.4 % (11.5-14.5); Red Blood Cell (RBC) Count 3.64 mill/uL (4.20-5.40); White Blood Cell (WBC) Count 4.9 thou/uL (4.8-10.8)
[2020-12-31 15:19] LABS: ALT (SGPT) Less than 7 U/L (8-55); AST (SGOT) 9 U/L (5-34); Alkaline Phosphatase 95 U/L (40-110); Anion Gap 16 mmol/L (10-20); BUN (Urea Nitrogen) 34 mg/dL (9.8-20.1); Bilirubin, Total 0.5 mg/dL (0.2-1.2); CK (CPK) 83 U/L (29-168); Calc. Creatinine Clearance 0 mL/min (70-130); Calcium 8.1 mg/dL (7.8-10.44); Carbon Dioxide 25 mmol/L (23-31); Chloride 96 mmol/L (98-107); Globulin 2.8 g/dL (2.4-3.5); Glucose 133 mg/dL (80-115); Lipase 24 U/L (8-78); Magnesium 1.6 mg/dL (1.6-2.6); Potassium 3.5 mmol/L (3.5-5.1); Protein, Total 5.8 g/dL (5.8-8.1); Sodium 133 mmol/L (136-145)
[2020-12-31] MEDS ORDERED: Fentanyl 100 MCG/2 ML VIAL ONE (15:29)
[2020-12-31 16:19] LABS: Actual Bicarbonate (HCO3a) 30.1 mEq/L (22-28); Analyzer IN Cardio ER; Base Excess (BEa) 5.1 mEq/L (-2.0 to +3.0); CO2 Tension 46.6 mmHg (35.0-45.0); Calcium, Ionized (arterial) 1.08 mmol/L (1.12-1.30); Carboxyhemoglobin (COHb) 1.1 gm% (0.0-3.0); Hemoglobin (Hb) 9.7 g/dL (12.0-16.0); O2 Tension (PaO2), arterial 147.2 mmHg (> 80.0); Potassium - ABG Lab 3.44 mmol/L (3.70-5.30); pH, Arterial 7.43 (7.35-7.45)
[2020-12-31 16:23] LABS: Puncture Site LBA
[2020-12-31] MEDS ORDERED: cefTRIAXone\\ROCEPHIN 1 GM VIAL ONE (17:08)
[2020-12-31] MEDS ORDERED: Dextrose 50% Abboject 50 ML SYRINGE SLOW IVP PRN (17:12)
[2020-12-31] MEDS ORDERED: HumaLOG 300 UNITS/3 ML VIAL SC PRN (17:12)
[2020-12-31] MEDS ORDERED: Dextrose 5% in Water 1,000 ML IV PRN (17:12)
[2020-12-31] MEDS ORDERED: Vancomycin 1 GM/200 ML BAG ONE (17:34)
[2020-12-31 18:57] LABS: SARS-CoV-2 NAA Rapid Test Not Detected (NotDetected)
[2020-12-31 20:40] LABS: Troponin I 0.026 ng/mL (< 0.028)
[2020-12-31 20:43] VITALS: BMI 28.8
[2020-12-31] MEDS ORDERED: traZODone HCl 50 MG TAB PO SCH (21:00)
[2020-12-31] MEDS ORDERED: ALPRAZolam 0.5 MG TAB PO PRN (21:00)
[2020-12-31] MEDS ORDERED: CEFEPIME HCL IN DEXTROSE 5 % 1 GM in Premix Bag 1 BAG IVPB SCH (21:30)
[2020-12-31] MEDS ORDERED: Cefepime 1 GM in Sodium Chloride 0.9% 100 ML IVPB SCH (21:30)
[2020-12-31] MEDS: Apixaban 2.5 MG TAB PO SCH (22:40)
[2021-01-01 04:34] LABS: #Eosinphils 0.1 thou/uL (0.0-0.7); #Lymphocytes 0.9 thou/uL (1.20-3.40); #Monocytes 0.4 thou/uL (0.11-0.59); #Neutrophils 2.7 thou/uL (1.40-6.50); %Eosinophils 1.8 % (0.0-10.0); %Lymphocytes 21.1 % (21.0-51.0); %Monocytes 10.7 % (0.0-10.0); %Neutrophils 66.4 % (42.0-75.0); Hemoglobin 9.6 g/dL (12.0-16.0); Mean Corpuscular Hemoglobin 29.2 pg (27.0-31.0); Mean Corpuscular Volume 88.4 fL (78.0-98.0); Mean Platelet Volume 8.8 fL (7.4-10.4); Platelet Count 172 thou/uL (130-400); RBC Distribution Width 15.2 % (11.5-14.5); White Blood Cell (WBC) Count 4.1 thou/uL (4.8-10.8)
[2021-01-01 05:05] LABS: ALT (SGPT) Less than 7 U/L (8-55); AST (SGOT) 7 U/L (5-34); Albumin 2.7 g/dL (3.4-4.8); Alkaline Phosphatase 82 U/L (40-110); Anion Gap 13 mmol/L (10-20); BUN (Urea Nitrogen) 41 mg/dL (9.8-20.1); Bilirubin, Total 0.4 mg/dL (0.2-1.2); Calc. Creatinine Clearance 27 mL/min (70-130); Calcium 8.2 mg/dL (7.8-10.44); Carbon Dioxide 27 mmol/L (23-31); Chloride 98 mmol/L (98-107); Globulin 2.6 g/dL (2.4-3.5); Glucose 130 mg/dL (80-115); Potassium 3.5 mmol/L (3.5-5.1); Protein, Total 5.3 g/dL (5.8-8.1); Sodium 134 mmol/L (136-145)
[2021-01-01] MEDS ORDERED: Heparin 10,000 UNITS/ 10 ML VIAL ONE (08:51)
[2021-01-01] MEDS ORDERED: Carvedilol 6.25 MG TAB PO SCH (09:00)
[2021-01-01] MEDS ORDERED: Isosorbide Dinitrate 5 MG TAB PO SCH (09:00)
[2021-01-01] MEDS ORDERED: Pregabalin 50 MG CAP PO SCH (09:00)
[2021-01-01] MEDS: Apixaban 2.5 MG TAB PO SCH (14:33)
[2021-01-01 16:17] VITALS: BP 175/78; TEMP 98.2
[2021-01-01] MEDS ORDERED: Cefepime 0.5 GM, Admixture Fee 1 EACH in Sodium Chloride 0.9% 100 ML IVPB SCH (21:00)
[2021-01-01] MEDS ORDERED: Prevnar 13-Val Conj/PF 0.5 ML SYRINGE IM ONE (21:00)
== END 2021-01-01 17:45 ==
LOC: ERS 14:08 → T4-A 16:16 → INTOOBSV 16:16 → 2NO 21:59
PROVIDERS: ADMIT Internal Medicine; ATTEND Internal Medicine
DX: I13.2 Hypertensive heart and chronic kidney disease with heart failure and with stage 5 chronic kidney disease, or end stage renal disease (principal); J96.21 Acute and chronic respiratory failure with hypoxia; N18.6 End stage renal disease; I50.43 Acute on chronic combined systolic (congestive) and diastolic (congestive) heart failure; J18.9 Pneumonia, unspecified organism; J44.0 Chronic obstructive pulmonary disease with (acute) lower respiratory infection; E87.1 Hypo-osmolality and hyponatremia; E11.22 Type 2 diabetes mellitus with diabetic chronic kidney disease; E78.00 Pure hypercholesterolemia, unspecified; I48.91 Unspecified atrial fibrillation; E66.9 Obesity, unspecified; D63.1 Anemia in chronic kidney disease; E88.09 Other disorders of plasma-protein metabolism, not elsewhere classified; M79.7 Fibromyalgia; Z20.822 Contact with and (suspected) exposure to COVID-19; E03.9 Hypothyroidism, unspecified; Z99.2 Dependence on renal dialysis; Z79.01 Long term (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 of anticoagulants; Z88.5 Allergy status to narcotic agent; Z88.8 Allergy status to other drugs, medicaments and biological substances; Z91.040 Latex allergy status; Z79.02 Long term (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 of antithrombotics/antiplatelets; Z79.899 Other long term (current) drug therapy; Z95.1 Presence of aortocoronary bypass graft; Z86.69 Personal history of other diseases of the nervous system and sense organs; Z74.01 Bed confinement status; I25.2 Old myocardial infarction; Z95.5 Presence of coronary angioplasty implant and graft; Z90.710 Acquired absence of both cervix and uterus; Z98.890 Other specified postprocedural states; Z68.29 Body mass index [BMI] 29.0-29.9, adult
CPT/HCPCS: 0240U; 36415; 36416; 36600; 71045; 80053; 82550; 82805; 83690; 83735; 83880; 84443; 84484; 85025; 87040; 93005; 96365; 96367; 96375; J0692; J0696; J1644; J1815; J3010; J3370

== ENCOUNTER 2021-01-18 10:14 | Day surgery (SDC) | payer OTHER ==
[2021-01-18] MEDS ORDERED: Lidocaine 1% w/Epinephrine 1:100K 20 ML VIAL ONE (10:34)
[2021-01-18] MEDS ORDERED: Heparin 5,000 UNITS/ML VIAL ONE (10:34)
[2021-01-18] MEDS ORDERED: Bupivacaine PF 0.5% 30 ML VIAL ONE (10:34)
[2021-01-18] MEDS ORDERED: Protamine Sulfate 50 MG/5 ML VIAL ONE (10:34)
[2021-01-18] MEDS ORDERED: Fentanyl 100 MCG/2 ML VIAL ONE ×2 (12:34→14:20)
[2021-01-18] MEDS ORDERED: Dexamethasone 20 MG/5 ML VIAL ONE (13:02)
[2021-01-18] MEDS ORDERED: Lidocaine 1% PF 5 ML VIAL ONE (13:02)
[2021-01-18] MEDS ORDERED: Ondansetron PF 4 MG/2 ML Vial ONE (13:02)
[2021-01-18] MEDS ORDERED: Heparin 1,000 UNITS/ML VIAL ONE (16:21)
== END 2021-01-18 16:52 ==
LOC: SDC 10:14
PROVIDERS: ATTEND Specialist
PROC: 03170ZD Bypass Right Brachial Artery to Upper Arm Vein, Open Approach (ICD-10-PCS; principal; 2021-01-18)
DX: T82.590A Other mechanical complication of surgically created arteriovenous fistula, initial encounter (principal); I13.2 Hypertensive heart and chronic kidney disease with heart failure and with stage 5 chronic kidney disease, or end stage renal disease; E11.22 Type 2 diabetes mellitus with diabetic chronic kidney disease; E11.40 Type 2 diabetes mellitus with diabetic neuropathy, unspecified; N18.6 End stage renal disease; I50.22 Chronic systolic (congestive) heart failure; E03.9 Hypothyroidism, unspecified; E78.00 Pure hypercholesterolemia, unspecified; J44.9 Chronic obstructive pulmonary disease, unspecified; E66.9 Obesity, unspecified; Z68.32 Body mass index [BMI] 32.0-32.9, adult; Z79.02 Long term (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 of antithrombotics/antiplatelets; Z79.4 Long term (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 of insulin; Z79.899 Other long term (current) drug therapy; Z88.5 Allergy status to narcotic agent; Z88.6 Allergy status to analgesic agent; Z88.8 Allergy status to other drugs, medicaments and biological substances; Z91.040 Latex allergy status; Z91.048 Other nonmedicinal substance allergy status
CPT/HCPCS: 36416; J0690; J1100; J1644; J2405; J2720; J3010; S0020

== ENCOUNTER 2021-02-09 10:46 | Emergency (ER) | payer OTHER ==
[2021-02-09 13:06] LABS: #Eosinphils 0.1 thou/uL (0.0-0.7); #Lymphocytes 0.7 thou/uL (1.20-3.40); #Monocytes 0.3 thou/uL (0.11-0.59); %Eosinophils 0.9 % (0.0-10.0); %Lymphocytes 9.9 % (21.0-51.0); %Monocytes 4.2 % (0.0-10.0); %Neutrophils 85.1 % (42.0-75.0); Hemoglobin 10.7 g/dL (12.0-16.0); Mean Corpuscular HGB CONC 32.2 g/dL (32.0-36.0); Mean Corpuscular Hemoglobin 28.9 pg (27.0-31.0); Mean Corpuscular Volume 89.8 fL (78.0-98.0); Platelet Count 188 thou/uL (130-400); RBC Distribution Width 15.3 % (11.5-14.5); Red Blood Cell (RBC) Count 3.68 mill/uL (4.20-5.40)
[2021-02-09 13:21] LABS: ALT (SGPT) 8 U/L (8-55); AST (SGOT) 14 U/L (5-34); Alkaline Phosphatase 82 U/L (40-110); Anion Gap 14 mmol/L (10-20); BUN (Urea Nitrogen) 42 mg/dL (9.8-20.1); Bilirubin, Total 0.4 mg/dL (0.2-1.2); CK (CPK) 144 U/L (29-168); Calc. Creatinine Clearance 0 mL/min (70-130); Calcium 8.6 mg/dL (7.8-10.44); Carbon Dioxide 29 mmol/L (23-31); Chloride 97 mmol/L (98-107); Globulin 2.5 g/dL (2.4-3.5); Glucose 215 mg/dL (80-115); INR-International Normal Ratio 1.2; Potassium 4.2 mmol/L (3.5-5.1); Protein, Total 5.5 g/dL (5.8-8.1); Prothrombin Time 14.9 sec (12.0-14.7); Sodium 136 mmol/L (136-145)
[2021-02-09 13:22] LABS: PTT 43.5 sec (22.9-36.1)
== END 2021-02-09 19:02 | disposition home or self-care (01) ==
LOC: ERS 10:46
DX: S09.90XA Unspecified injury of head, initial encounter (principal); S70.01XA Contusion of right hip, initial encounter; I25.2 Old myocardial infarction; E11.9 Type 2 diabetes mellitus without complications; E78.5 Hyperlipidemia, unspecified; E03.9 Hypothyroidism, unspecified; I48.91 Unspecified atrial fibrillation; G43.909 Migraine, unspecified, not intractable, without status migrainosus; I13.2 Hypertensive heart and chronic kidney disease with heart failure and with stage 5 chronic kidney disease, or end stage renal disease; E11.22 Type 2 diabetes mellitus with diabetic chronic kidney disease; N18.6 End stage renal disease; I50.9 Heart failure, unspecified; W19.XXXA Unspecified fall, initial encounter
CPT/HCPCS: 70450; 71045; 72100; 72125; 72170; 80053; 82550; 83605; 85025; 85610; 85730; 93005

== ENCOUNTER 2021-06-02 10:28 | Emergency (ER) | payer OTHER ==
[2021-06-02 11:01] LABS: #Eosinphils 0.1 thou/uL (0.0-0.7); #Lymphocytes 0.8 thou/uL (1.20-3.40); #Monocytes 0.2 thou/uL (0.11-0.59); #Neutrophils 3.7 thou/uL (1.40-6.50); %Basophils 0.5 % (0.0-1.0); %Eosinophils 2.4 % (0.0-10.0); %Lymphocytes 15.9 % (21.0-51.0); %Monocytes 4.2 % (0.0-10.0); Hemoglobin 11.4 g/dL (12.0-16.0); Mean Corpuscular HGB CONC 33.3 g/dL (32.0-36.0); Mean Corpuscular Volume 93.1 fL (78.0-98.0); Mean Platelet Volume 8.9 fL (7.4-10.4); Platelet Count 189 thou/uL (130-400); RBC Distribution Width 13.6 % (11.5-14.5); Red Blood Cell (RBC) Count 3.66 mill/uL (4.20-5.40); White Blood Cell (WBC) Count 4.8 thou/uL (4.8-10.8)
[2021-06-02 11:22] LABS: ALT (SGPT) 11 U/L (8-55); AST (SGOT) 13 U/L (5-34); Alkaline Phosphatase 116 U/L (40-110); Anion Gap 13 mmol/L (10-20); BUN (Urea Nitrogen) 50 mg/dL (9.8-20.1); Bilirubin, Total 0.5 mg/dL (0.2-1.2); Calc. Creatinine Clearance 0 mL/min (70-130); Calcium 9.6 mg/dL (7.8-10.44); Carbon Dioxide 27 mmol/L (23-31); Chloride 100 mmol/L (98-107); Globulin 3.3 g/dL (2.4-3.5); Glucose 112 mg/dL (80-115); Potassium 4.2 mmol/L (3.5-5.1); Protein, Total 7.3 g/dL (5.8-8.1); Sodium 136 mmol/L (136-145)
[2021-06-02] MEDS ORDERED: Furosemide 40 MG/4 ML VIAL ONE (12:29)
== END 2021-06-02 13:20 ==
LOC: ERS 10:28
DX: J81.1 Chronic pulmonary edema (principal); I25.2 Old myocardial infarction; E78.5 Hyperlipidemia, unspecified; J44.9 Chronic obstructive pulmonary disease, unspecified; E03.9 Hypothyroidism, unspecified; I48.91 Unspecified atrial fibrillation; I13.2 Hypertensive heart and chronic kidney disease with heart failure and with stage 5 chronic kidney disease, or end stage renal disease; I50.9 Heart failure, unspecified; N18.6 End stage renal disease; D63.1 Anemia in chronic kidney disease; E11.22 Type 2 diabetes mellitus with diabetic chronic kidney disease; M48.00 Spinal stenosis, site unspecified; Z99.2 Dependence on renal dialysis
CPT/HCPCS: 71045; 80053; 83880; 84484; 85025; 93005; 94760; 96374; J1940

== ENCOUNTER 2021-09-09 17:13 | Inpatient (IN) | payer OTHER ==
[2021-09-09 17:57] LABS: #Eosinphils 0.1 thou/uL (0.0-0.7); #Lymphocytes 0.6 thou/uL (1.20-3.40); #Monocytes 0.3 thou/uL (0.11-0.59); #Neutrophils 3.4 thou/uL (1.40-6.50); %Basophils 0.2 % (0.0-1.0); %Eosinophils 1.6 % (0.0-10.0); %Lymphocytes 13.6 % (21.0-51.0); %Monocytes 7.1 % (0.0-10.0); %Neutrophils 77.5 % (42.0-75.0); Hemoglobin 9.1 g/dL (12.0-16.0); Mean Corpuscular HGB CONC 33.3 g/dL (32.0-36.0); Mean Corpuscular Hemoglobin 31.5 pg (27.0-31.0); Mean Corpuscular Volume 94.4 fL (78.0-98.0); Mean Platelet Volume 8.4 fL (7.4-10.4); Platelet Count 164 thou/uL (130-400); White Blood Cell (WBC) Count 4.4 thou/uL (4.8-10.8)
[2021-09-09 18:14] LABS: INR-International Normal Ratio 1.3; Prothrombin Time 16.5 sec (12.0-14.7)
[2021-09-09 18:15] LABS: PTT 39.3 sec (22.9-36.1)
[2021-09-09] MEDS ORDERED: Fentanyl 100 MCG/2 ML VIAL ONE (18:19)
[2021-09-09 18:20] LABS: Bacteria/HPF 1+ HPF (None Seen); Bilirubin Negative (Negative); Blood, Urine 2+ (Negative); Clarity Clear (Clear); Glucose, Urine (Dipstick) Normal (Negative); Ketone, Urine Negative (Negative); Leukocyte 250 Leu/uL (Negative); Nitrite 2+ (Negative); Protein, Urine (Dipstick) 50 mg/dL (Neg-Trace); Specific Gravity, Urine 1.012 (1.002-1.036); Squamous Epithelial 0-3 HPF (0-3); Urobilinogen Normal mg/dL (Less than 2); WBC/HPF 21-50 HPF (0-3)
[2021-09-09 18:23] LABS: ALT (SGPT) 10 U/L (8-55); AST (SGOT) 12 U/L (5-34); Albumin 3.5 g/dL (3.4-4.8); Alkaline Phosphatase 91 U/L (40-110); Anion Gap 12 mmol/L (10-20); BUN (Urea Nitrogen) 41 mg/dL (9.8-20.1); Bilirubin, Total 0.6 mg/dL (0.2-1.2); CK (CPK) 30 U/L (29-168); Calc. Creatinine Clearance 0 mL/min (70-130); Calcium 9.2 mg/dL (7.8-10.44); Carbon Dioxide 31 mmol/L (23-31); Chloride 102 mmol/L (98-107); Globulin 2.8 g/dL (2.4-3.5); Glucose 127 mg/dL (80-115); Potassium 4.2 mmol/L (3.5-5.1); Protein, Total 6.3 g/dL (5.8-8.1); Sodium 141 mmol/L (136-145)
[2021-09-09] MEDS ORDERED: Acetaminophen 325 MG TAB ONE (22:20)
[2021-09-10] MEDS ORDERED: Ondansetron PF 4 MG/2 ML Vial IVP PRN (01:02)
[2021-09-10] MEDS ORDERED: Dextrose 5% in Water 1,000 ML IV PRN (01:02)
[2021-09-10] MEDS ORDERED: traMADol HCl 50 MG TAB PO PRN (01:02)
[2021-09-10] MEDS ORDERED: Dextrose 50% Abboject 50 ML SYRINGE SLOW IVP PRN (01:02)
[2021-09-10] MEDS ORDERED: Ondansetron ODT 4 MG TAB PO PRN (01:02)
[2021-09-10] MEDS ORDERED: Morphine 4 MG/ML VIAL SLOW IVP PRN ×2 (01:11→07:31)
[2021-09-10] MEDS ORDERED: Famotidine 20 MG TAB PO SCH (01:15)
[2021-09-10] MEDS ORDERED: cefTRIAXone\\ROCEPHIN 1 GM in Sodium Chloride 0.9% 100 ML IVPB SCH (02:00)
[2021-09-10] MEDS: hydrALAZINE 20 MG/ML VIAL SLOW IVP PRN ×3 (02:30→18:22)
[2021-09-10] MEDS: Acetaminophen 325 MG TAB PO SCH ×4 (02:33→20:58)
[2021-09-10] MEDS: Sodium Chloride 0.9% 1,000 ML IV SCH ×2 (02:34→11:20)
[2021-09-10 03:31] VITALS: BMI 29.3
[2021-09-10 04:58] LABS: SARS-CoV-2 NAA Rapid Test Not Detected (NotDetected)
[2021-09-10 05:30] LABS: #Eosinphils 0.2 thou/uL (0.0-0.7); #Lymphocytes 0.7 thou/uL (1.20-3.40); #Monocytes 0.3 thou/uL (0.11-0.59); #Neutrophils 2.5 thou/uL (1.40-6.50); %Basophils 0.3 % (0.0-1.0); %Eosinophils 5.4 % (0.0-10.0); %Lymphocytes 19.9 % (21.0-51.0); %Monocytes 7.1 % (0.0-10.0); %Neutrophils 67.3 % (42.0-75.0); Hemoglobin 8.9 g/dL (12.0-16.0); Mean Corpuscular HGB CONC 32.4 g/dL (32.0-36.0); Mean Corpuscular Hemoglobin 30.9 pg (27.0-31.0); Mean Corpuscular Volume 95.3 fL (78.0-98.0); Platelet Count 156 thou/uL (130-400); Red Blood Cell (RBC) Count 2.89 mill/uL (4.20-5.40); White Blood Cell (WBC) Count 3.7 thou/uL (4.8-10.8)
[2021-09-10 05:46] LABS: Anion Gap 10 mmol/L (10-20); BUN (Urea Nitrogen) 40 mg/dL (9.8-20.1); Calc. Creatinine Clearance 40 mL/min (70-130); Carbon Dioxide 33 mmol/L (23-31); Chloride 102 mmol/L (98-107); Glucose 138 mg/dL (80-115); Potassium 3.8 mmol/L (3.5-5.1); Sodium 141 mmol/L (136-145)
[2021-09-10] MEDS ORDERED: ceFAZolin 2 GM/Dextrose 50 ML 2 GM in Premix Bag 1 BAG IVPB SCH (08:30)
[2021-09-10] MEDS ORDERED: Sodium Chloride 0.9% 1,000 ML IV SCH (09:59)
[2021-09-10] MEDS: traMADol HCl 50 MG TAB PO PRN (10:13)
[2021-09-10] MEDS ORDERED: Lisinopril 10 MG TAB PO SCH (11:00)
[2021-09-10] MEDS ORDERED: Carvedilol 6.25 MG TAB PO SCH (11:00)
[2021-09-10] MEDS ORDERED: Promethazine HCl 25 MG/ML VIAL IM PRN ×2 (13:39→15:30)
[2021-09-10] MEDS ORDERED: Promethazine HCl 25 MG/ML VIAL IVPB PRN ×2 (13:39→15:30)
[2021-09-10] MEDS ORDERED: Ondansetron HCl/PF 4 MG/2 ML Vial IVP PRN ×2 (13:39→15:30)
[2021-09-10] MEDS ORDERED: ceFAZolin 2 GM/Dextrose 50 ML IVPB ONE (13:51)
[2021-09-10] MEDS ORDERED: Fentanyl 250 MCG/5 ML VIAL ONE ×2 (14:10→16:05)
[2021-09-10] MEDS ORDERED: Lidocaine 1% PF 5 ML VIAL ONE (14:40)
[2021-09-10] MEDS ORDERED: PROPOFOL 200 MG/20 ML VIAL ONE (14:40)
[2021-09-10] MEDS ORDERED: Dexamethasone 20 MG/5 ML VIAL ONE (14:40)
[2021-09-10] MEDS ORDERED: Ondansetron PF 4 MG/2 ML Vial ONE (14:40)
[2021-09-10] MEDS ORDERED: Labetalol HCl 100 MG/20 ML VIAL SLOW IVP PRN (16:34)
[2021-09-10 17:58] LABS: Magnesium 2.1 mg/dL (1.6-2.6)
[2021-09-10] MEDS: Carvedilol 6.25 MG TAB PO SCH (20:58)
[2021-09-10] MEDS: Senokot 8.6 MG TAB PO SCH (20:59)
[2021-09-10] MEDS: Gabapentin 300 MG CAP PO SCH (20:59)
[2021-09-10] MEDS: Famotidine 20 MG TAB PO SCH (20:59)
[2021-09-10] MEDS: ceFAZolin 2 GM/Dextrose 50 ML 2 GM in Premix Bag 1 BAG IVPB SCH (21:00)
[2021-09-10] MEDS ORDERED: Cephalexin 250 MG CAP PO SCH (21:00)
[2021-09-10] MEDS: ALPRAZolam 0.25 MG TAB PO PRN (21:05)
[2021-09-11] MEDS: Acetaminophen 325 MG TAB PO SCH ×2 (02:08→08:53)
[2021-09-11] MEDS: traMADol HCl 50 MG TAB PO PRN (02:11)
[2021-09-11] MEDS: ceFAZolin 2 GM/Dextrose 50 ML 2 GM in Premix Bag 1 BAG IVPB SCH (05:56)
[2021-09-11 05:57] LABS: #Lymphocytes 0.4 thou/uL (1.20-3.40); #Monocytes 0.3 thou/uL (0.11-0.59); #Neutrophils 3.7 thou/uL (1.40-6.50); %Eosinophils 0.2 % (0.0-10.0); %Lymphocytes 9.6 % (21.0-51.0); %Monocytes 6.8 % (0.0-10.0); %Neutrophils 83.3 % (42.0-75.0); Mean Corpuscular HGB CONC 31.4 g/dL (32.0-36.0); Mean Corpuscular Hemoglobin 30.7 pg (27.0-31.0); Mean Corpuscular Volume 97.7 fL (78.0-98.0); Mean Platelet Volume 8.4 fL (7.4-10.4); Platelet Count 161 thou/uL (130-400); Red Blood Cell (RBC) Count 2.62 mill/uL (4.20-5.40); White Blood Cell (WBC) Count 4.4 thou/uL (4.8-10.8)
[2021-09-11] MEDS: Levothyroxine Sodium 50 MCG TAB PO SCH (05:57)
[2021-09-11 06:15] LABS: Anion Gap 14 mmol/L (10-20); BUN (Urea Nitrogen) 49 mg/dL (9.8-20.1); Calc. Creatinine Clearance 34 mL/min (70-130); Calcium 8.5 mg/dL (7.8-10.44); Carbon Dioxide 28 mmol/L (23-31); Chloride 102 mmol/L (98-107); Glucose 237 mg/dL (80-115); Phosphorus 5.2 mg/dL (2.3-4.7); Potassium 4.5 mmol/L (3.5-5.1); Sodium 139 mmol/L (136-145)
[2021-09-11] MEDS ORDERED: HumaLOG 300 UNITS/3 ML VIAL SC PRN (07:29)
[2021-09-11] MEDS ORDERED: Dextrose 5% in Water 1,000 ML IV PRN (07:29)
[2021-09-11] MEDS ORDERED: Dextrose 50% Abboject 50 ML SYRINGE SLOW IVP PRN (07:29)
[2021-09-11 07:44] LABS: Magnesium 2.1 mg/dL (1.6-2.6)
[2021-09-11] MEDS ORDERED: Ciprofloxacin 500 MG TAB PO SCH ×2 (08:00→09:00)
[2021-09-11] MEDS: Lisinopril 10 MG TAB PO SCH (08:51)
[2021-09-11] MEDS: Isosorbide Dinitrate 5 MG TAB PO SCH ×2 (08:52→20:42)
[2021-09-11] MEDS: Carvedilol 6.25 MG TAB PO SCH ×2 (08:52→20:43)
[2021-09-11] MEDS: DULoxetine 30 MG CAP PO SCH (08:52)
[2021-09-11] MEDS: Amiodarone 200 MG TAB PO SCH (08:53)
[2021-09-11] MEDS: Gabapentin 300 MG CAP PO SCH ×2 (08:53→20:41)
[2021-09-11] MEDS: Apixaban 5 MG TAB PO SCH ×2 (08:54→20:40)
[2021-09-11] MEDS ORDERED: Enoxaparin Sodium 40 MG/0.4 ML SYRINGE SC SCH (09:00)
[2021-09-11] MEDS ORDERED: ISOSORBIDE DINITRATE 10 MG PO SCH (09:00)
[2021-09-11] MEDS ORDERED: DULoxetine 30 MG CAP PO SCH (09:00)
[2021-09-11] MEDS ORDERED: Apixaban 5 MG TAB PO SCH (09:00)
[2021-09-11] MEDS: Acetaminophen/Codeine 30-300mg Tablet PO SCH ×3 (12:47→20:40)
[2021-09-11] MEDS: glipiZIDE 5 MG TAB PO SCH (17:17)
[2021-09-11] MEDS: Ciprofloxacin 500 MG TAB PO SCH (20:40)
[2021-09-11] MEDS: Famotidine 20 MG TAB PO SCH (20:42)
[2021-09-11] MEDS: Senokot 8.6 MG TAB PO SCH (20:43)
[2021-09-11] MEDS: ALPRAZolam 0.25 MG TAB PO PRN (21:01)
[2021-09-11] MEDS ORDERED: hydrALAZINE 25 MG TAB PO PRN (21:50)
[2021-09-11] MEDS ORDERED: hydrOXYzine 25 MG TAB PO PRN (21:57)
[2021-09-12] MEDS: Acetaminophen/Codeine 30-300mg Tablet PO SCH ×5 (01:06→18:18)
[2021-09-12 04:47] LABS: #Eosinphils 0.3 thou/uL (0.0-0.7); #Lymphocytes 0.9 thou/uL (1.20-3.40); #Monocytes 0.4 thou/uL (0.11-0.59); #Neutrophils 2.6 thou/uL (1.40-6.50); %Basophils 0.6 % (0.0-1.0); %Eosinophils 6.2 % (0.0-10.0); %Lymphocytes 21.7 % (21.0-51.0); %Neutrophils 61.5 % (42.0-75.0); Hemoglobin 7.8 g/dL (12.0-16.0); Mean Corpuscular HGB CONC 31.2 g/dL (32.0-36.0); Mean Corpuscular Hemoglobin 30.5 pg (27.0-31.0); Mean Corpuscular Volume 97.6 fL (78.0-98.0); Mean Platelet Volume 8.5 fL (7.4-10.4); Platelet Count 158 thou/uL (130-400); RBC Distribution Width 14.1 % (11.5-14.5); Red Blood Cell (RBC) Count 2.56 mill/uL (4.20-5.40); White Blood Cell (WBC) Count 4.2 thou/uL (4.8-10.8)
[2021-09-12] MEDS: Ciprofloxacin 500 MG TAB PO SCH (05:04)
[2021-09-12] MEDS: Levothyroxine Sodium 50 MCG TAB PO SCH (05:04)
[2021-09-12 05:07] LABS: Anion Gap 14 mmol/L (10-20); BUN (Urea Nitrogen) 57 mg/dL (9.8-20.1); Calc. Creatinine Clearance 31 mL/min (70-130); Calcium 8.2 mg/dL (7.8-10.44); Carbon Dioxide 28 mmol/L (23-31); Chloride 101 mmol/L (98-107); Glucose 69 mg/dL (80-115); Potassium 4.4 mmol/L (3.5-5.1); Sodium 139 mmol/L (136-145)
[2021-09-12] MEDS: Isosorbide Dinitrate 5 MG TAB PO SCH (08:16)
[2021-09-12] MEDS: glipiZIDE 5 MG TAB PO SCH ×2 (08:16→17:31)
[2021-09-12] MEDS: Apixaban 5 MG TAB PO SCH (08:16)
[2021-09-12] MEDS: Lisinopril 10 MG TAB PO SCH (08:16)
[2021-09-12] MEDS: Gabapentin 300 MG CAP PO SCH (08:16)
[2021-09-12] MEDS: Amiodarone 200 MG TAB PO SCH (08:17)
[2021-09-12] MEDS: DULoxetine 30 MG CAP PO SCH (08:17)
[2021-09-12] MEDS: Carvedilol 6.25 MG TAB PO SCH (08:17)
[2021-09-12] MEDS ORDERED: Lidocaine 1%/Epinephrine 1:100K 10 ML VIAL IJ SCH (12:30)
[2021-09-12] MEDS ORDERED: EPOETIN ALFA-EPBX (ESRD) 10,000 UNIT/ML VIAL SC SCH (14:00)
[2021-09-12 15:47] VITALS: BP 142/60; TEMP 97.5
[2021-09-13] MEDS ORDERED: Ciprofloxacin 500 MG TAB PO SCH (06:00)
== END 2021-09-12 18:45 | DRG 481 ==
LOC: ERS 17:13 → SURG A 18:14
PROVIDERS: ADMIT Surgery; ATTEND Surgery
PROC: 0QS634Z Reposition Right Upper Femur with Internal Fixation Device, Percutaneous Approach (ICD-10-PCS; principal; 2021-09-10)
PROC: 05PY33Z Removal of Infusion Device from Upper Vein, Percutaneous Approach (ICD-10-PCS; 2021-09-11)
DX: S72.011A Unspecified intracapsular fracture of right femur, initial encounter for closed fracture (principal); N39.0 Urinary tract infection, site not specified; N18.4 Chronic kidney disease, stage 4 (severe); N17.9 Acute kidney failure, unspecified; I13.0 Hypertensive heart and chronic kidney disease with heart failure and stage 1 through stage 4 chronic kidney disease, or unspecified chronic kidney disease; E78.5 Hyperlipidemia, unspecified; J44.9 Chronic obstructive pulmonary disease, unspecified; E03.9 Hypothyroidism, unspecified; G43.909 Migraine, unspecified, not intractable, without status migrainosus; I48.91 Unspecified atrial fibrillation; I50.9 Heart failure, unspecified; I27.20 Pulmonary hypertension, unspecified; F41.9 Anxiety disorder, unspecified; F32.A Depression, unspecified; I25.10 Atherosclerotic heart disease of native coronary artery without angina pectoris; E11.22 Type 2 diabetes mellitus with diabetic chronic kidney disease; W19.XXXA Unspecified fall, initial encounter; B96.20 Unspecified Escherichia coli [E. coli] as the cause of diseases classified elsewhere; D63.1 Anemia in chronic kidney disease; Z20.822 Contact with and (suspected) exposure to COVID-19; Z95.5 Presence of coronary angioplasty implant and graft; Z90.710 Acquired absence of both cervix and uterus; Z95.1 Presence of aortocoronary bypass graft; Z91.040 Latex allergy status; Z88.5 Allergy status to narcotic agent; Z88.8 Allergy status to other drugs, medicaments and biological substances; Y92.9 Unspecified place or not applicable; I25.2 Old myocardial infarction
CPT/HCPCS: 36415; 36416; 70450; 71045; 72125; 76000; 80048; 80053; 81003; 81015; 82550; 83735; 84100; 85025; 85610; 85730; 87077; 87086; 87186; 93005; 94640; 94760; 96374; C1713; C1769; J0360; J0690; J0696; J1100; J1815; J2405; J2704; J3010; J3490; J7050; J7620; Q5105; U0002

== ENCOUNTER 2021-11-14 21:13 | Inpatient (IN) | payer OTHER ==
[2021-11-14 21:48] LABS: #Eosinphils 0.1 thou/uL (0.0-0.7); #Lymphocytes 0.5 thou/uL (1.20-3.40); #Monocytes 0.3 thou/uL (0.11-0.59); #Neutrophils 3.6 thou/uL (1.40-6.50); %Basophils 0.4 % (0.0-1.0); %Eosinophils 2.1 % (0.0-10.0); %Lymphocytes 11.3 % (21.0-51.0); %Monocytes 6.2 % (0.0-10.0); %Neutrophils 80.1 % (42.0-75.0); Hemoglobin 8.5 g/dL (12.0-16.0); Mean Corpuscular HGB CONC 30.5 g/dL (32.0-36.0); Mean Corpuscular Hemoglobin 29.5 pg (27.0-31.0); Mean Corpuscular Volume 96.8 fL (78.0-98.0); Mean Platelet Volume 8.3 fL (7.4-10.4); Platelet Count 164 thou/uL (130-400); RBC Distribution Width 14.4 % (11.5-14.5); Red Blood Cell (RBC) Count 2.88 mill/uL (4.20-5.40); White Blood Cell (WBC) Count 4.5 thou/uL (4.8-10.8)
[2021-11-14 22:09] LABS: ALT (SGPT) Less than 7 U/L (8-55); AST (SGOT) 9 U/L (5-34); Albumin 3.3 g/dL (3.4-4.8); Alkaline Phosphatase 83 U/L (40-110); Anion Gap 15 mmol/L (10-20); BUN (Urea Nitrogen) 40 mg/dL (9.8-20.1); Bilirubin, Total 0.8 mg/dL (0.2-1.2); Calc. Creatinine Clearance 0 mL/min (70-130); Calcium 8.4 mg/dL (7.8-10.44); Carbon Dioxide 31 mmol/L (23-31); Chloride 101 mmol/L (98-107); Globulin 2.7 g/dL (2.4-3.5); Glucose 180 mg/dL (80-115); Potassium 4.4 mmol/L (3.5-5.1); Sodium 143 mmol/L (136-145)
[2021-11-14] MEDS ORDERED: Furosemide 40 MG/4 ML VIAL ONE (23:24)
[2021-11-14] MEDS ORDERED: Nitroglycerin 2% Ointment 1 INCH/1 GM Packet ONE (23:24)
[2021-11-14 23:29] LABS: SARS-CoV-2 NAA Rapid Test Not Detected (NotDetected)
[2021-11-15] MEDS ORDERED: Acetaminophen 650 MG Suppository PR PRN (00:45)
[2021-11-15] MEDS ORDERED: Ondansetron PF 4 MG/2 ML Vial IVP PRN (00:45)
[2021-11-15] MEDS ORDERED: Dextrose 5% in Water 1,000 ML IV PRN (00:45)
[2021-11-15] MEDS ORDERED: Dextrose 50% Abboject 50 ML SYRINGE SLOW IVP PRN (00:45)
[2021-11-15] MEDS ORDERED: Ondansetron ODT 4 MG TAB PO PRN ×2 (00:45→12:24)
[2021-11-15] MEDS ORDERED: HumaLOG 300 UNITS/3 ML VIAL SC PRN (00:45)
[2021-11-15] MEDS ORDERED: hydrALAZINE 20 MG/ML VIAL SLOW IVP PRN (01:23)
[2021-11-15 01:35] VITALS: BMI 32.3
[2021-11-15] MEDS ORDERED: Loratadine 10 MG TAB PO PRN (03:02)
[2021-11-15] MEDS ORDERED: Electrolyte Replacement Protocol 1 EACH FS SCH (03:15)
[2021-11-15] MEDS ORDERED: oxyCODONE 5 MG TAB PO PRN (04:05)
[2021-11-15] MEDS ORDERED: Non-Formulary Item 1 EACH (Acetaminophen [Tylenol] 325 MG Capsule) PO PRN (04:05)
[2021-11-15] MEDS ORDERED: cloNIDine 0.1 MG TAB PO PRN (04:07)
[2021-11-15] MEDS: Acetaminophen 325 MG TAB PO PRN ×2 (04:35→15:14)
[2021-11-15] MEDS: ALPRAZolam 0.5 MG TAB PO SCH ×3 (04:35→22:18)
[2021-11-15] MEDS: Levothyroxine Sodium 88 MCG TAB PO SCH (04:35)
[2021-11-15 04:59] LABS: #Eosinphils 0.1 thou/uL (0.0-0.7); #Lymphocytes 0.6 thou/uL (1.20-3.40); #Monocytes 0.3 thou/uL (0.11-0.59); #Neutrophils 4.1 thou/uL (1.40-6.50); %Basophils 0.2 % (0.0-1.0); %Eosinophils 1.8 % (0.0-10.0); %Lymphocytes 11.3 % (21.0-51.0); %Monocytes 5.1 % (0.0-10.0); %Neutrophils 81.6 % (42.0-75.0); Hemoglobin 8.9 g/dL (12.0-16.0); Mean Corpuscular HGB CONC 30.7 g/dL (32.0-36.0); Mean Corpuscular Hemoglobin 29.3 pg (27.0-31.0); Mean Corpuscular Volume 95.7 fL (78.0-98.0); Mean Platelet Volume 8.3 fL (7.4-10.4); Platelet Count 171 thou/uL (130-400); RBC Distribution Width 14.7 % (11.5-14.5); Red Blood Cell (RBC) Count 3.05 mill/uL (4.20-5.40); White Blood Cell (WBC) Count 5.1 thou/uL (4.8-10.8)
[2021-11-15 05:23] LABS: Anion Gap 15 mmol/L (10-20); BUN (Urea Nitrogen) 42 mg/dL (9.8-20.1); Calc. Creatinine Clearance 49 mL/min (70-130); Calcium 9.1 mg/dL (7.8-10.44); Carbon Dioxide 33 mmol/L (23-31); Chloride 98 mmol/L (98-107); Glucose 127 mg/dL (80-115); Potassium 4.1 mmol/L (3.5-5.1); Sodium 142 mmol/L (136-145)
[2021-11-15 05:37] LABS: CKMB 1.1 ng/mL (0-6.6)
[2021-11-15] MEDS ORDERED: Magnesium 2 GM/50 ML(in water) 2 GM in Premix Bag 1 BAG IVPB SCH (05:45)
[2021-11-15] MEDS: Amiodarone 200 MG TAB PO SCH (08:28)
[2021-11-15] MEDS: Apixaban 5 MG TAB PO SCH ×2 (08:28→20:46)
[2021-11-15] MEDS: Isosorbide Dinitrate 5 MG TAB PO SCH ×2 (08:28→20:46)
[2021-11-15] MEDS: DULoxetine 30 MG CAP PO SCH (08:28)
[2021-11-15] MEDS: Gabapentin 300 MG CAP PO SCH ×3 (08:28→20:46)
[2021-11-15] MEDS: Lisinopril 5 MG TAB PO SCH (08:29)
[2021-11-15] MEDS ORDERED: Furosemide 40 MG/4 ML VIAL SLOW IVP SCH (09:00)
[2021-11-15] MEDS ORDERED: Loperamide HCl 2 MG CAP PO PRN (12:08)
[2021-11-15] MEDS ORDERED: hydrOXYzine 25 MG TAB PO PRN (12:08)
[2021-11-15] MEDS ORDERED: Furosemide 100 MG/10 ML VIAL SLOW IVP SCH (15:30)
[2021-11-15] MEDS: Acetaminophen/Codeine 30-300mg Tablet PO PRN (20:45)
[2021-11-15] MEDS: Nystatin Cream 15 GM TUBE TOP SCH (20:47)
[2021-11-15] MEDS: Lidocaine 5% Patch TD SCH (20:50)
[2021-11-16] MEDS: ALPRAZolam 0.5 MG TAB PO SCH ×3 (04:54→21:03)
[2021-11-16] MEDS: Furosemide 100 MG/10 ML VIAL SLOW IVP SCH ×2 (04:54→15:39)
[2021-11-16] MEDS: Levothyroxine Sodium 88 MCG TAB PO SCH (04:54)
[2021-11-16] MEDS ORDERED: Carvedilol 25 MG TAB PO SCH (08:15)
[2021-11-16] MEDS: Isosorbide Dinitrate 5 MG TAB PO SCH ×2 (08:44→20:20)
[2021-11-16] MEDS: Lisinopril 5 MG TAB PO SCH (08:44)
[2021-11-16] MEDS: DULoxetine 30 MG CAP PO SCH (08:44)
[2021-11-16] MEDS: Gabapentin 300 MG CAP PO SCH ×3 (08:44→20:20)
[2021-11-16] MEDS: Apixaban 5 MG TAB PO SCH ×2 (08:45→20:20)
[2021-11-16] MEDS: Amiodarone 200 MG TAB PO SCH (08:45)
[2021-11-16] MEDS: Nystatin Cream 15 GM TUBE TOP SCH ×2 (08:48→20:20)
[2021-11-16] MEDS: Transdermal Patch Removal TOP SCH (08:52)
[2021-11-16 09:13] LABS: BUN (Urea Nitrogen) 43 mg/dL (9.8-20.1); Calc. Creatinine Clearance 49 mL/min (70-130); Calcium 8.8 mg/dL (7.8-10.44); Glucose 104 mg/dL (80-115)
[2021-11-16 09:21] LABS: Anion Gap 20 mmol/L (10-20); Carbon Dioxide 32 mmol/L (23-31); Chloride 95 mmol/L (98-107); Sodium 143 mmol/L (136-145)
[2021-11-16] MEDS: Acetaminophen 325 MG TAB PO PRN (15:39)
[2021-11-16] MEDS: HumaLOG 300 UNITS/3 ML VIAL SC PRN (18:32)
[2021-11-16] MEDS: Carvedilol 25 MG TAB PO SCH (18:32)
[2021-11-16] MEDS: Lidocaine 5% Patch TD SCH (20:20)
[2021-11-17] MEDS: Levothyroxine Sodium 88 MCG TAB PO SCH (05:13)
[2021-11-17] MEDS: Furosemide 100 MG/10 ML VIAL SLOW IVP SCH ×2 (05:13→14:34)
[2021-11-17] MEDS: ALPRAZolam 0.5 MG TAB PO SCH ×3 (05:13→20:51)
[2021-11-17 05:25] LABS: #Eosinphils 0.1 thou/uL (0.0-0.7); #Lymphocytes 0.6 thou/uL (1.20-3.40); #Monocytes 0.3 thou/uL (0.11-0.59); #Neutrophils 2.2 thou/uL (1.40-6.50); %Basophils 0.4 % (0.0-1.0); %Eosinophils 3.9 % (0.0-10.0); %Lymphocytes 18.5 % (21.0-51.0); %Monocytes 9.3 % (0.0-10.0); %Neutrophils 67.8 % (42.0-75.0); Hemoglobin 7.7 g/dL (12.0-16.0); Mean Corpuscular HGB CONC 30.9 g/dL (32.0-36.0); Mean Corpuscular Hemoglobin 29.8 pg (27.0-31.0); Mean Corpuscular Volume 96.5 fL (78.0-98.0); Mean Platelet Volume 8.3 fL (7.4-10.4); Platelet Count 158 thou/uL (130-400); RBC Distribution Width 14.6 % (11.5-14.5); Red Blood Cell (RBC) Count 2.57 mill/uL (4.20-5.40); White Blood Cell (WBC) Count 3.2 thou/uL (4.8-10.8)
[2021-11-17 05:34] LABS: Anion Gap 14 mmol/L (10-20); BUN (Urea Nitrogen) 45 mg/dL (9.8-20.1); Calc. Creatinine Clearance 45 mL/min (70-130); Calcium 8.4 mg/dL (7.8-10.44); Carbon Dioxide 37 mmol/L (23-31); Chloride 94 mmol/L (98-107); Glucose 122 mg/dL (80-115); Potassium 3.9 mmol/L (3.5-5.1); Sodium 141 mmol/L (136-145)
[2021-11-17] MEDS: Apixaban 5 MG TAB PO SCH ×2 (09:36→20:50)
[2021-11-17] MEDS: Amiodarone 200 MG TAB PO SCH (09:36)
[2021-11-17] MEDS: Lisinopril 5 MG TAB PO SCH (09:36)
[2021-11-17] MEDS: Gabapentin 300 MG CAP PO SCH ×3 (09:36→20:49)
[2021-11-17] MEDS: DULoxetine 30 MG CAP PO SCH (09:36)
[2021-11-17] MEDS: Carvedilol 25 MG TAB PO SCH ×2 (09:36→16:44)
[2021-11-17] MEDS: Isosorbide Dinitrate 5 MG TAB PO SCH (09:36)
[2021-11-17] MEDS: Transdermal Patch Removal TOP SCH (09:43)
[2021-11-17] MEDS: Nystatin Cream 15 GM TUBE TOP SCH ×2 (09:43→20:52)
[2021-11-17] MEDS: HumaLOG 300 UNITS/3 ML VIAL SC PRN ×2 (11:39→17:24)
[2021-11-17] MEDS: Lidocaine 5% Patch TD SCH (20:51)
[2021-11-17] MEDS: Acetaminophen/Codeine 30-300mg Tablet PO PRN (20:51)
[2021-11-17] MEDS: Isosorbide Dinitrate 20 MG TAB PO SCH (20:51)
[2021-11-18] MEDS: Acetaminophen/Codeine 30-300mg Tablet PO PRN (02:29)
[2021-11-18] MEDS: ALPRAZolam 0.5 MG TAB PO SCH ×2 (05:37→15:42)
[2021-11-18] MEDS: Levothyroxine Sodium 88 MCG TAB PO SCH (05:37)
[2021-11-18] MEDS ORDERED: Torsemide 20 MG TAB PO SCH (09:00)
[2021-11-18] MEDS: Carvedilol 25 MG TAB PO SCH (09:38)
[2021-11-18] MEDS: Transdermal Patch Removal TOP SCH (09:38)
[2021-11-18] MEDS: DULoxetine 30 MG CAP PO SCH (09:38)
[2021-11-18] MEDS: Apixaban 5 MG TAB PO SCH (09:38)
[2021-11-18] MEDS: Gabapentin 300 MG CAP PO SCH ×2 (09:38→15:42)
[2021-11-18] MEDS: Nystatin Cream 15 GM TUBE TOP SCH (09:38)
[2021-11-18] MEDS: Amiodarone 200 MG TAB PO SCH (09:38)
[2021-11-18] MEDS: Isosorbide Dinitrate 20 MG TAB PO SCH (09:38)
[2021-11-18 12:17] VITALS: TEMP 97.8
[2021-11-18 15:50] VITALS: BP 143/64
== END 2021-11-18 16:45 | disposition home or self-care (01) | DRG 291 ==
LOC: ERS 21:13 → 2NO 23:34 → UNDOADMIN 11-15 00:14 → 2NO 11-15 00:14 → UNDODISIN 11-18 16:45
PROVIDERS: ADMIT Internal Medicine; ATTEND Internal Medicine
DX: I13.0 Hypertensive heart and chronic kidney disease with heart failure and stage 1 through stage 4 chronic kidney disease, or unspecified chronic kidney disease (principal); J96.21 Acute and chronic respiratory failure with hypoxia; I50.23 Acute on chronic systolic (congestive) heart failure; N18.4 Chronic kidney disease, stage 4 (severe); Z20.822 Contact with and (suspected) exposure to COVID-19; I25.5 Ischemic cardiomyopathy; E78.5 Hyperlipidemia, unspecified; J44.9 Chronic obstructive pulmonary disease, unspecified; E11.22 Type 2 diabetes mellitus with diabetic chronic kidney disease; E03.9 Hypothyroidism, unspecified; M79.7 Fibromyalgia; G43.909 Migraine, unspecified, not intractable, without status migrainosus; D63.1 Anemia in chronic kidney disease; I25.10 Atherosclerotic heart disease of native coronary artery without angina pectoris; I48.0 Paroxysmal atrial fibrillation; E66.9 Obesity, unspecified; I25.2 Old myocardial infarction; Z91.040 Latex allergy status; Z88.5 Allergy status to narcotic agent; Z88.6 Allergy status to analgesic agent; Z88.8 Allergy status to other drugs, medicaments and biological substances; Z79.84 Long term (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 of oral hypoglycemic drugs; Z79.899 Other long term (current) drug therapy; Z95.1 Presence of aortocoronary bypass graft; Z99.81 Dependence on supplemental oxygen; Z79.01 Long term (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 of anticoagulants; Z68.32 Body mass index [BMI] 32.0-32.9, adult; Z90.710 Acquired absence of both cervix and uterus
CPT/HCPCS: 36415; 36416; 71045; 80048; 80053; 82553; 83735; 83880; 84484; 85025; 93005; 94660; 96374; 97139; J0360; J1815; J1940; J2405; J3475; U0002

== ENCOUNTER 2021-12-14 11:16 | Inpatient (IN) | payer OTHER ==
[2021-12-14] MEDS ORDERED: Labetalol HCl 100 MG/20 ML VIAL ONE (11:41)
[2021-12-14] MEDS ORDERED: Furosemide 40 MG/4 ML VIAL ONE (11:41)
[2021-12-14] MEDS ORDERED: Nitroglycerin 2% Ointment 1 INCH/1 GM Packet ONE (11:41)
[2021-12-14 12:31] LABS: #Lymphocytes 0.4 thou/uL (1.20-3.40); #Monocytes 0.2 thou/uL (0.11-0.59); #Neutrophils 4.4 thou/uL (1.40-6.50); %Basophils 0.5 % (0.0-1.0); %Eosinophils 0.9 % (0.0-10.0); %Lymphocytes 8.6 % (21.0-51.0); %Monocytes 4.5 % (0.0-10.0); %Neutrophils 85.6 % (42.0-75.0); Hemoglobin 8.2 g/dL (12.0-16.0); Mean Corpuscular HGB CONC 31.3 g/dL (32.0-36.0); Mean Corpuscular Hemoglobin 30.1 pg (27.0-31.0); Mean Corpuscular Volume 96.1 fL (78.0-98.0); Mean Platelet Volume 8.2 fL (7.4-10.4); Platelet Count 168 thou/uL (130-400); RBC Distribution Width 15.3 % (11.5-14.5); Red Blood Cell (RBC) Count 2.73 mill/uL (4.20-5.40); White Blood Cell (WBC) Count 5.2 thou/uL (4.8-10.8)
[2021-12-14 12:58] LABS: ALT (SGPT) 8 U/L (8-55); AST (SGOT) 18 U/L (5-34); Albumin 3.3 g/dL (3.4-4.8); Alkaline Phosphatase 84 U/L (40-110); Anion Gap 15 mmol/L (10-20); BUN (Urea Nitrogen) 60 mg/dL (9.8-20.1); Bilirubin, Total 0.6 mg/dL (0.2-1.2); Calc. Creatinine Clearance 0 mL/min (70-130); Calcium 8.9 mg/dL (7.8-10.44); Carbon Dioxide 33 mmol/L (23-31); Chloride 100 mmol/L (98-107); Globulin 3.3 g/dL (2.4-3.5); Glucose 169 mg/dL (80-115); Potassium 4.4 mmol/L (3.5-5.1); Protein, Total 6.6 g/dL (5.8-8.1); Sodium 144 mmol/L (136-145)
[2021-12-14 13:11] LABS: CKMB 2.6 ng/mL (0-6.6)
[2021-12-14] MEDS ORDERED: Ondansetron ODT 4 MG TAB PO PRN (14:10)
[2021-12-14] MEDS ORDERED: Heparin 5,000 UNITS/ML VIAL SC SCH (15:00)
[2021-12-14] MEDS ORDERED: Dextrose 50% Abboject 50 ML SYRINGE SLOW IVP PRN (15:01)
[2021-12-14] MEDS ORDERED: Dextrose 5% in Water 1,000 ML IV PRN (15:01)
[2021-12-14] MEDS ORDERED: Epoetin (ESRD) 10,000 UNITS/ML VIAL SC SCH (15:15)
[2021-12-14 15:37] VITALS: BMI 35.3
[2021-12-14] MEDS ORDERED: Nitroglycerin 0.4 MG TAB (25 Tab Bottle) SL PRN (15:58)
[2021-12-14] MEDS ORDERED: Aspirin 325 MG TAB PO SCH (16:00)
[2021-12-14 16:40] LABS: Troponin I 1.209 ng/mL (< 0.028)
[2021-12-14] MEDS ORDERED: Aspirin Chewable 81 MG TAB PO SCH (16:44)
[2021-12-14] MEDS: Carvedilol 25 MG TAB PO SCH (17:51)
[2021-12-14 18:44] LABS: Hemoglobin 7.8 g/dL (12.0-16.0); Platelet Count 157 thou/uL (130-400)
[2021-12-14 18:53] LABS: CKMB 4.8 ng/mL (0-6.6)
[2021-12-14] MEDS ORDERED: Furosemide 100 MG/10 ML VIAL SLOW IVP SCH (19:00)
[2021-12-14] MEDS: Heparin 25,000 units/D5W 500 ML IVPB SCH (19:20)
[2021-12-14 19:22] LABS: Troponin I 1.585 ng/mL (< 0.028)
[2021-12-14] MEDS: Heparin 10,000 UNITS/ 10 ML VIAL SLOW IVP SCH (19:26)
[2021-12-14 20:09] LABS: Free T4 (Free Thyroxine) 0.58 ng/dL (0.70-1.48)
[2021-12-14] MEDS: Isosorbide Dinitrate 20 MG TAB PO SCH (20:53)
[2021-12-14] MEDS ORDERED: Apixaban 5 MG TAB PO SCH (21:00)
[2021-12-14] MEDS ORDERED: ALPRAZolam 0.25 MG TAB PO PRN (21:16)
[2021-12-14] MEDS: Acetaminophen 325 MG TAB PO PRN (21:36)
[2021-12-15 02:29] LABS: CKMB 3.7 ng/mL (0-6.6)
[2021-12-15 04:47] LABS: #Eosinphils 0.1 thou/uL (0.0-0.7); #Lymphocytes 0.8 thou/uL (1.20-3.40); #Monocytes 0.3 thou/uL (0.11-0.59); #Neutrophils 2.1 thou/uL (1.40-6.50); %Basophils 1.1 % (0.0-1.0); %Lymphocytes 22.8 % (21.0-51.0); %Monocytes 9.2 % (0.0-10.0); %Neutrophils 62.8 % (42.0-75.0); Hemoglobin 7.8 g/dL (12.0-16.0); Mean Corpuscular HGB CONC 30.5 g/dL (32.0-36.0); Mean Corpuscular Hemoglobin 29.5 pg (27.0-31.0); Mean Corpuscular Volume 96.7 fL (78.0-98.0); Mean Platelet Volume 8.3 fL (7.4-10.4); Platelet Count 150 thou/uL (130-400); RBC Distribution Width 15.4 % (11.5-14.5); Red Blood Cell (RBC) Count 2.65 mill/uL (4.20-5.40); White Blood Cell (WBC) Count 3.3 thou/uL (4.8-10.8)
[2021-12-15 05:06] LABS: Anion Gap 13 mmol/L (10-20); BUN (Urea Nitrogen) 60 mg/dL (9.8-20.1); Calc. Creatinine Clearance 48 mL/min (70-130); Calcium 8.6 mg/dL (7.8-10.44); Carbon Dioxide 35 mmol/L (23-31); Chloride 100 mmol/L (98-107); Glucose 117 mg/dL (80-115); Sodium 144 mmol/L (136-145)
[2021-12-15 05:07] LABS: Phosphorus 4.4 mg/dL (2.3-4.7)
[2021-12-15 05:10] LABS: Iron 49 ug/dL (50-170); Iron Binding Capacity, Total 220 mcg/dL (265-497); Magnesium 2.1 mg/dL (1.6-2.6)
[2021-12-15 05:21] LABS: Critical Call Chem Troponin I RESULT DECREASING
[2021-12-15 05:39] LABS: CKMB 3.4 ng/mL (0-6.6)
[2021-12-15] MEDS ORDERED: Levothyroxine Sodium 50 MCG TAB PO SCH (06:00)
[2021-12-15] MEDS: Furosemide 40 MG/4 ML VIAL SLOW IVP SCH ×2 (06:05→16:57)
[2021-12-15] MEDS: Levothyroxine Sodium 125 MCG TAB PO SCH (06:05)
[2021-12-15] MEDS ORDERED: Loratadine 10 MG TAB PO PRN (07:39)
[2021-12-15] MEDS ORDERED: Levothyroxine 100 MCG SDV IVP SCH (09:15)
[2021-12-15] MEDS: Gabapentin 300 MG CAP PO SCH ×3 (09:19→20:56)
[2021-12-15] MEDS: Carvedilol 25 MG TAB PO SCH ×2 (09:56→16:57)
[2021-12-15] MEDS: Nystatin Cream 15 GM TUBE TOP SCH ×2 (09:57→20:57)
[2021-12-15] MEDS: Aspirin 81 mg Enteric Coated Tablet PO SCH (09:57)
[2021-12-15] MEDS: Amiodarone 200 MG TAB PO SCH (09:57)
[2021-12-15] MEDS: Isosorbide Dinitrate 20 MG TAB PO SCH ×2 (09:57→20:57)
[2021-12-15] MEDS: cefTRIAXone\\ROCEPHIN 2 GM in Sodium Chloride 0.9% 100 ML IVPB SCH (09:57)
[2021-12-15] MEDS: DULoxetine 30 MG CAP PO SCH ×2 (09:57→10:05)
[2021-12-15 10:18] LABS: Base Excess 6.3 mEq/L (-2.0 to +3.0); Calcium, Ionized (venous) 1.04 mmol/L (1.16-1.32); Chloride (VBG) 99 mmol/L (98-106); Hemoglobin (Hb) 8.7 g/dL (11.7-16.0); Sodium 139.4 mmol/L (133-146); pH (venous) 7.45 (7.32-7.43)
[2021-12-15 10:19] LABS: Actual Bicarbonate (HCO3v) 31 mEq/L (22-28)
[2021-12-15] MEDS: ALPRAZolam 0.25 MG TAB PO PRN (21:03)
[2021-12-16 04:55] LABS: #Eosinphils 0.2 thou/uL (0.0-0.7); #Lymphocytes 0.7 thou/uL (1.20-3.40); #Monocytes 0.3 thou/uL (0.11-0.59); #Neutrophils 2.7 thou/uL (1.40-6.50); %Basophils 0.8 % (0.0-1.0); %Eosinophils 5.1 % (0.0-10.0); %Lymphocytes 17.7 % (21.0-51.0); %Monocytes 7.7 % (0.0-10.0); %Neutrophils 68.6 % (42.0-75.0); Hemoglobin 7.3 g/dL (12.0-16.0); Mean Corpuscular Hemoglobin 30.2 pg (27.0-31.0); Mean Corpuscular Volume 97.6 fL (78.0-98.0); Mean Platelet Volume 8.1 fL (7.4-10.4); Platelet Count 143 thou/uL (130-400); RBC Distribution Width 15.4 % (11.5-14.5); Red Blood Cell (RBC) Count 2.41 mill/uL (4.20-5.40)
[2021-12-16 05:13] LABS: PTT 217.8 sec (22.9-36.1)
[2021-12-16] MEDS: Furosemide 40 MG/4 ML VIAL SLOW IVP SCH ×2 (05:23→14:50)
[2021-12-16] MEDS: Levothyroxine Sodium 125 MCG TAB PO SCH (05:23)
[2021-12-16 05:27] LABS: Anion Gap 13 mmol/L (10-20); BUN (Urea Nitrogen) 59 mg/dL (9.8-20.1); Calc. Creatinine Clearance 69 mL/min (70-130); Calcium 8.9 mg/dL (7.8-10.44); Carbon Dioxide 36 mmol/L (23-31); Chloride 98 mmol/L (98-107); Glucose 149 mg/dL (80-115); Potassium 3.7 mmol/L (3.5-5.1); Sodium 143 mmol/L (136-145)
[2021-12-16] MEDS: Acetaminophen 325 MG TAB PO PRN (08:44)
[2021-12-16] MEDS: ALPRAZolam 0.25 MG TAB PO PRN ×2 (08:44→21:49)
[2021-12-16] MEDS: Aspirin 81 mg Enteric Coated Tablet PO SCH (08:45)
[2021-12-16] MEDS: Isosorbide Dinitrate 20 MG TAB PO SCH ×2 (08:45→21:50)
[2021-12-16] MEDS: Gabapentin 300 MG CAP PO SCH ×3 (08:45→21:50)
[2021-12-16] MEDS: Amiodarone 200 MG TAB PO SCH (08:45)
[2021-12-16] MEDS: DULoxetine 30 MG CAP PO SCH (08:47)
[2021-12-16] MEDS: Carvedilol 25 MG TAB PO SCH ×2 (08:47→16:45)
[2021-12-16] MEDS: cefTRIAXone\\ROCEPHIN 2 GM in Sodium Chloride 0.9% 100 ML IVPB SCH (09:54)
[2021-12-16] MEDS: Heparin 10,000 UNITS/ 10 ML VIAL SLOW IVP SCH (10:04)
[2021-12-16] MEDS: Nystatin Cream 15 GM TUBE TOP SCH ×2 (13:08→21:50)
[2021-12-16] MEDS: HumaLOG 300 UNITS/3 ML VIAL SC PRN (13:09)
[2021-12-16] MEDS: Heparin 25,000 units/D5W 500 ML IVPB SCH (16:45)
[2021-12-16 16:59] LABS: Hemoglobin 7.5 g/dL (12.0-16.0); Platelet Count 144 thou/uL (130-400)
[2021-12-16 17:13] LABS: PTT 148.4 sec (22.9-36.1)
[2021-12-16] MEDS: Atorvastatin Calcium 40 MG TAB PO SCH (21:50)
[2021-12-17 04:52] LABS: #Eosinphils 0.2 thou/uL (0.0-0.7); #Lymphocytes 0.8 thou/uL (1.20-3.40); #Monocytes 0.3 thou/uL (0.11-0.59); #Neutrophils 2.4 thou/uL (1.40-6.50); %Basophils 0.3 % (0.0-1.0); %Eosinophils 4.1 % (0.0-10.0); %Lymphocytes 20.6 % (21.0-51.0); Hemoglobin 7.3 g/dL (12.0-16.0); Mean Corpuscular HGB CONC 31.1 g/dL (32.0-36.0); Mean Corpuscular Hemoglobin 30.3 pg (27.0-31.0); Mean Corpuscular Volume 97.4 fL (78.0-98.0); Mean Platelet Volume 8.1 fL (7.4-10.4); Platelet Count 144 thou/uL (130-400); RBC Distribution Width 15.8 % (11.5-14.5); Red Blood Cell (RBC) Count 2.41 mill/uL (4.20-5.40); White Blood Cell (WBC) Count 3.6 thou/uL (4.8-10.8)
[2021-12-17 05:19] LABS: Anion Gap 14 mmol/L (10-20); BUN (Urea Nitrogen) 52 mg/dL (9.8-20.1); Calc. Creatinine Clearance 46 mL/min (70-130); Calcium 8.4 mg/dL (7.8-10.44); Carbon Dioxide 36 mmol/L (23-31); Chloride 96 mmol/L (98-107); Glucose 162 mg/dL (80-115); Potassium 3.7 mmol/L (3.5-5.1); Sodium 142 mmol/L (136-145)
[2021-12-17] MEDS: Furosemide 40 MG/4 ML VIAL SLOW IVP SCH (05:42)
[2021-12-17] MEDS: Levothyroxine Sodium 125 MCG TAB PO SCH (05:42)
[2021-12-17] MEDS: HumaLOG 300 UNITS/3 ML VIAL SC PRN (06:46)
[2021-12-17 06:49] LABS: Free T4 (Free Thyroxine) 0.77 ng/dL (0.70-1.48); Thyroid Stimulating Hormone 41.3694 uIU/mL (0.35-4.94)
[2021-12-17] MEDS: Carvedilol 25 MG TAB PO SCH ×2 (08:05→16:49)
[2021-12-17] MEDS: Empagliflozin 10 MG TAB PO SCH (08:05)
[2021-12-17] MEDS: Nystatin Cream 15 GM TUBE TOP SCH ×2 (08:05→21:07)
[2021-12-17] MEDS: Isosorbide Dinitrate 20 MG TAB PO SCH ×2 (08:05→21:04)
[2021-12-17] MEDS: AcetaZOLAMIDE 250 MG TAB PO SCH ×2 (08:05→21:04)
[2021-12-17] MEDS: DULoxetine 30 MG CAP PO SCH (08:05)
[2021-12-17] MEDS: Aspirin 81 mg Enteric Coated Tablet PO SCH (08:05)
[2021-12-17] MEDS: Gabapentin 300 MG CAP PO SCH ×3 (08:05→21:05)
[2021-12-17] MEDS: Amiodarone 200 MG TAB PO SCH (08:05)
[2021-12-17] MEDS ORDERED: NIFEdipine XL 30 MG TAB PO SCH (09:15)
[2021-12-17] MEDS: Apixaban 5 MG TAB PO SCH ×2 (10:30→21:04)
[2021-12-17] MEDS ORDERED: Furosemide 20 MG TAB PO SCH (14:00)
[2021-12-17] MEDS: Furosemide 40 MG TAB PO SCH (16:49)
[2021-12-17] MEDS: Atorvastatin Calcium 40 MG TAB PO SCH (21:05)
[2021-12-17] MEDS: ALPRAZolam 0.25 MG TAB PO PRN (21:11)
[2021-12-17] MEDS: Acetaminophen 325 MG TAB PO PRN (21:12)
[2021-12-17] MEDS ORDERED: Acetaminophen/Codeine 30-300mg Tablet PO SCH (23:59)
[2021-12-18 04:42] LABS: #Eosinphils 0.2 thou/uL (0.0-0.7); #Lymphocytes 0.7 thou/uL (1.20-3.40); #Monocytes 0.3 thou/uL (0.11-0.59); #Neutrophils 2.2 thou/uL (1.40-6.50); %Basophils 0.4 % (0.0-1.0); %Eosinophils 5.1 % (0.0-10.0); %Lymphocytes 19.9 % (21.0-51.0); %Monocytes 9.1 % (0.0-10.0); %Neutrophils 65.5 % (42.0-75.0); Hemoglobin 7.5 g/dL (12.0-16.0); Mean Corpuscular HGB CONC 31.1 g/dL (32.0-36.0); Mean Corpuscular Hemoglobin 30.5 pg (27.0-31.0); Mean Corpuscular Volume 98.2 fL (78.0-98.0); Mean Platelet Volume 8.1 fL (7.4-10.4); Platelet Count 161 thou/uL (130-400); RBC Distribution Width 15.8 % (11.5-14.5); Red Blood Cell (RBC) Count 2.45 mill/uL (4.20-5.40); White Blood Cell (WBC) Count 3.4 thou/uL (4.8-10.8)
[2021-12-18 05:02] LABS: Anion Gap 14 mmol/L (10-20); BUN (Urea Nitrogen) 50 mg/dL (9.8-20.1); Calc. Creatinine Clearance 44 mL/min (70-130); Carbon Dioxide 36 mmol/L (23-31); Chloride 97 mmol/L (98-107); Glucose 158 mg/dL (80-115); Potassium 3.6 mmol/L (3.5-5.1); Sodium 143 mmol/L (136-145)
[2021-12-18] MEDS: Levothyroxine Sodium 125 MCG TAB PO SCH (05:02)
[2021-12-18] MEDS: HumaLOG 300 UNITS/3 ML VIAL SC PRN (05:48)
[2021-12-18] MEDS: Carvedilol 25 MG TAB PO SCH ×2 (09:01→17:31)
[2021-12-18] MEDS: Furosemide 40 MG TAB PO SCH ×2 (09:01→15:07)
[2021-12-18] MEDS: Apixaban 5 MG TAB PO SCH ×2 (09:01→21:05)
[2021-12-18] MEDS: Empagliflozin 10 MG TAB PO SCH (09:01)
[2021-12-18] MEDS: Gabapentin 300 MG CAP PO SCH ×3 (09:01→21:01)
[2021-12-18] MEDS: Aspirin 81 mg Enteric Coated Tablet PO SCH (09:01)
[2021-12-18] MEDS: Isosorbide Dinitrate 20 MG TAB PO SCH ×2 (09:02→21:03)
[2021-12-18] MEDS: Amiodarone 200 MG TAB PO SCH (09:02)
[2021-12-18] MEDS: DULoxetine 30 MG CAP PO SCH (09:02)
[2021-12-18] MEDS: Nystatin Cream 15 GM TUBE TOP SCH ×2 (09:04→21:05)
[2021-12-18] MEDS: ALPRAZolam 0.25 MG TAB PO PRN ×2 (09:08→21:02)
[2021-12-18] MEDS ORDERED: hydrOXYzine 25 MG TAB PO PRN (15:09)
[2021-12-18] MEDS: Acetaminophen/Codeine 30-300mg Tablet PO PRN ×2 (17:31→21:04)
[2021-12-18] MEDS: Atorvastatin Calcium 40 MG TAB PO SCH (21:03)
[2021-12-19] MEDS: Acetaminophen/Codeine 30-300mg Tablet PO PRN ×2 (02:58→09:39)
[2021-12-19 04:56] LABS: #Eosinphils 0.2 thou/uL (0.0-0.7); #Lymphocytes 0.6 thou/uL (1.20-3.40); #Monocytes 0.2 thou/uL (0.11-0.59); #Neutrophils 2.2 thou/uL (1.40-6.50); %Basophils 0.7 % (0.0-1.0); %Eosinophils 6.1 % (0.0-10.0); %Lymphocytes 18.7 % (21.0-51.0); %Monocytes 6.7 % (0.0-10.0); %Neutrophils 67.8 % (42.0-75.0); Hemoglobin 7.6 g/dL (12.0-16.0); Mean Corpuscular HGB CONC 30.7 g/dL (32.0-36.0); Mean Corpuscular Hemoglobin 30.3 pg (27.0-31.0); Mean Corpuscular Volume 98.6 fL (78.0-98.0); Mean Platelet Volume 8.1 fL (7.4-10.4); Platelet Count 152 thou/uL (130-400); RBC Distribution Width 16.2 % (11.5-14.5); Red Blood Cell (RBC) Count 2.51 mill/uL (4.20-5.40); White Blood Cell (WBC) Count 3.2 thou/uL (4.8-10.8)
[2021-12-19 05:11] LABS: Anion Gap 14 mmol/L (10-20); BUN (Urea Nitrogen) 47 mg/dL (9.8-20.1); Calc. Creatinine Clearance 43 mL/min (70-130); Calcium 8.9 mg/dL (7.8-10.44); Carbon Dioxide 33 mmol/L (23-31); Chloride 99 mmol/L (98-107); Glucose 133 mg/dL (80-115); Potassium 3.8 mmol/L (3.5-5.1); Sodium 142 mmol/L (136-145)
[2021-12-19] MEDS: Levothyroxine Sodium 125 MCG TAB PO SCH (05:20)
[2021-12-19] MEDS ORDERED: Empagliflozin 25 MG TAB PO SCH (09:00)
[2021-12-19] MEDS: Furosemide 40 MG TAB PO SCH ×2 (09:34→14:34)
[2021-12-19] MEDS: DULoxetine 30 MG CAP PO SCH (09:34)
[2021-12-19] MEDS: Apixaban 5 MG TAB PO SCH (09:34)
[2021-12-19] MEDS: Aspirin 81 mg Enteric Coated Tablet PO SCH (09:34)
[2021-12-19] MEDS: Amiodarone 200 MG TAB PO SCH (09:34)
[2021-12-19] MEDS: Isosorbide Dinitrate 20 MG TAB PO SCH (09:34)
[2021-12-19] MEDS: Gabapentin 300 MG CAP PO SCH ×2 (09:34→14:35)
[2021-12-19] MEDS: Carvedilol 25 MG TAB PO SCH ×2 (09:34→17:28)
[2021-12-19] MEDS: ALPRAZolam 0.25 MG TAB PO PRN (09:35)
[2021-12-19] MEDS: Nystatin Cream 15 GM TUBE TOP SCH (10:06)
[2021-12-19 17:24] VITALS: BP 123/59; TEMP 97.6
== END 2021-12-19 18:44 | DRG 280 ==
LOC: ERS 11:16 → 2NO 14:07 → OBSVTOIN 19:03
PROVIDERS: ADMIT Internal Medicine; ATTEND Internal Medicine
DX: I13.0 Hypertensive heart and chronic kidney disease with heart failure and stage 1 through stage 4 chronic kidney disease, or unspecified chronic kidney disease (principal); J96.21 Acute and chronic respiratory failure with hypoxia; I21.4 Non-ST elevation (NSTEMI) myocardial infarction; I50.43 Acute on chronic combined systolic (congestive) and diastolic (congestive) heart failure; N18.4 Chronic kidney disease, stage 4 (severe); N17.9 Acute kidney failure, unspecified; E87.3 Alkalosis; E87.1 Hypo-osmolality and hyponatremia; Z66 Do not resuscitate; Z51.5 Encounter for palliative care; Z20.822 Contact with and (suspected) exposure to COVID-19; E78.5 Hyperlipidemia, unspecified; J44.9 Chronic obstructive pulmonary disease, unspecified; M79.7 Fibromyalgia; G43.909 Migraine, unspecified, not intractable, without status migrainosus; F32.A Depression, unspecified; I27.20 Pulmonary hypertension, unspecified; F41.9 Anxiety disorder, unspecified; E11.22 Type 2 diabetes mellitus with diabetic chronic kidney disease; I48.0 Paroxysmal atrial fibrillation; D50.9 Iron deficiency anemia, unspecified; D63.1 Anemia in chronic kidney disease; E66.9 Obesity, unspecified; Z95.810 Presence of automatic (implantable) cardiac defibrillator; E03.9 Hypothyroidism, unspecified; I42.0 Dilated cardiomyopathy; I25.5 Ischemic cardiomyopathy; M48.00 Spinal stenosis, site unspecified; Z99.3 Dependence on wheelchair; I25.2 Old myocardial infarction; Z91.041 Radiographic dye allergy status; Z95.1 Presence of aortocoronary bypass graft; Z88.5 Allergy status to narcotic agent; Z88.8 Allergy status to other drugs, medicaments and biological substances; Z79.84 Long term (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 of oral hypoglycemic drugs; Z79.890 Hormone replacement therapy; Z79.899 Other long term (current) drug therapy; Z79.01 Long term (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 of anticoagulants; Z68.34 Body mass index [BMI] 34.0-34.9, adult
CPT/HCPCS: 36415; 36416; 71045; 80048; 80053; 82533; 82553; 82728; 82805; 83036; 83540; 83550; 83735; 83880; 84100; 84439; 84443; 84481; 84484; 85014; 85018; 85025; 85049; 85730; 87040; 87086; 93005; 93010; 94760; 96372; 96374; 96375; 96376; 97139; G0378; J0696; J1644; J1815; J1940; J3490; Q4081; U0003; U0005

== ENCOUNTER 2021-12-25 19:31 | Emergency (ER) | payer OTHER ==
[2021-12-25 20:07] LABS: #Eosinphils 0.2 thou/uL (0.0-0.7); #Lymphocytes 0.6 thou/uL (1.20-3.40); #Monocytes 0.2 thou/uL (0.11-0.59); #Neutrophils 2.9 thou/uL (1.40-6.50); %Basophils 1.2 % (0.0-1.0); %Eosinophils 3.9 % (0.0-10.0); %Lymphocytes 15.4 % (21.0-51.0); %Monocytes 6.2 % (0.0-10.0); %Neutrophils 73.4 % (42.0-75.0); Hemoglobin 8.2 g/dL (12.0-16.0); Mean Corpuscular HGB CONC 30.3 g/dL (32.0-36.0); Mean Corpuscular Hemoglobin 29.6 pg (27.0-31.0); Mean Corpuscular Volume 97.5 fL (78.0-98.0); Mean Platelet Volume 8.7 fL (7.4-10.4); Platelet Count 138 thou/uL (130-400); RBC Distribution Width 16.2 % (11.5-14.5); Red Blood Cell (RBC) Count 2.76 mill/uL (4.20-5.40); White Blood Cell (WBC) Count 3.9 thou/uL (4.8-10.8)
[2021-12-25] MEDS ORDERED: Furosemide 40 MG/4 ML VIAL ONE (20:19)
[2021-12-25 20:34] LABS: Albumin 3.2 g/dL (3.4-4.8)
[2021-12-25 20:36] LABS: Calcium 8.7 mg/dL (7.8-10.44); Chloride 100 mmol/L (98-107); Potassium 3.9 mmol/L (3.5-5.1); Sodium 142 mmol/L (136-145)
[2021-12-25 20:37] LABS: Globulin 2.7 g/dL (2.4-3.5); Glucose 155 mg/dL (80-115); Protein, Total 5.9 g/dL (5.8-8.1)
[2021-12-25 20:38] LABS: Carbon Dioxide 30 mmol/L (23-31)
[2021-12-25 20:39] LABS: Bilirubin, Total 0.6 mg/dL (0.2-1.2)
[2021-12-25 20:40] LABS: Alkaline Phosphatase 74 U/L (40-110); Calc. Creatinine Clearance 0 mL/min (70-130)
[2021-12-25 20:41] LABS: BUN (Urea Nitrogen) 65 mg/dL (9.8-20.1)
[2021-12-25 20:42] LABS: AST (SGOT) 17 U/L (5-34)
[2021-12-25 20:43] LABS: ALT (SGPT) 12 U/L (8-55)
[2021-12-25 20:56] LABS: CKMB 0.7 ng/mL (0-6.6)
[2021-12-25 21:21] LABS: Anion Gap 16 mmol/L (10-20)
[2021-12-26 01:14] LABS: CKMB 0.8 ng/mL (0-6.6)
== END 2021-12-26 02:13 | disposition home or self-care (01) ==
LOC: ERS 19:31
DX: I13.2 Hypertensive heart and chronic kidney disease with heart failure and with stage 5 chronic kidney disease, or end stage renal disease (principal); E11.22 Type 2 diabetes mellitus with diabetic chronic kidney disease; N18.6 End stage renal disease; I50.9 Heart failure, unspecified; E78.5 Hyperlipidemia, unspecified; E03.9 Hypothyroidism, unspecified; J44.9 Chronic obstructive pulmonary disease, unspecified; I48.91 Unspecified atrial fibrillation; D64.9 Anemia, unspecified; M79.7 Fibromyalgia; I25.2 Old myocardial infarction; I27.20 Pulmonary hypertension, unspecified; Z79.84 Long term (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 of oral hypoglycemic drugs; Z79.899 Other long term (current) drug therapy; Z95.0 Presence of cardiac pacemaker
CPT/HCPCS: 36415; 71045; 80053; 82553; 83880; 84484; 85025; 85379; 93005; 96374; J1940